=== PATIENT | male | born 1940 | race Caucasian/White ===

== ENCOUNTER 2018-10-27 15:21 | Emergency (ER) | payer MEDICARE, BC ==
--- NOTE | 2018-10-27 16:33 | RAD REPORT ---
EXAM DESCRIPTION: CT - Head Brain Wo Cont - 10/27/2018 4:20 pm CLINICAL HISTORY: Left-sided headache COMPARISON: CT head July 2015 TECHNIQUE: Axial 5 mm thick images of the head were obtained without IV contrast. All CT scans are performed using dose optimization technique as appropriate and may include automated exposure control or mA/KV adjustment according to patient size. FINDINGS: No intracranial hemorrhage, mass, edema or shift of mid-line structures. No acute infarcti on changes seen. Moderate atrophy and chronic ischemic change matches the prior study. Ventricles are in proportion to volume loss. Arterial and physiologic calcifications are present. Mastoid air cells and visualized portions of the paranasal sinuses are clear. No acute bony findings. IMPRESSION: Moderate atrophy and chronic ischemic change with no acute intracranial finding. No significant change from 2015 study.
[2018-10-27 16:39] LABS: Absolute Lymphocytes (CBC) 1.6 K/uL (0.7-4.9); Absolute Monocytes 0.5 K/uL (0.1-1.3); Absolute Neutrophil 4.7 K/uL (1.8-8.0); Basophils % 0.5 % (0-1.3); Eosinophils % 2.7 % (0-4.4); Hematocrit 44.3 % (39.6-49.0); Lymphocytes % 22.8 % (15.3-44.8); MPV 7.4 fL (7.6-11.3); Monocytes % 7.3 % (3.3-12.3); RBC Red Blood Cell Count 4.56 M/uL (4.33-5.43)
[2018-10-27 16:52] LABS: BUN Blood Urea Nitrogen 12 mg/dL (7-18); Bicarbonate 28 mmol/L (21-32); C-Reactive Protein < 2.90 mg/L (<3.00); Glucose Level 105 mg/dL (74-106); Potassium 4.1 mmol/L (3.5-5.1); Sodium Level 141 mmol/L (136-145)
--- NOTE | 2018-10-27 17:25 | ER ---
Nurse's Notes [facility] Name: Cecil Butterfield Age: 78 yrs Sex: Male : 1940 Arrival Date: 10/27/2018 Time: 15:25 Bed 20 Private MD: Catracho Aranda T Diagnosis: Headache Presentation: 10/27 15:45 Presenting complaint: Patient states: I have a throbbing thing/pain in my left mandaeism la1 area since . It hurts intermittently, is usually tender to touch. Transition of care: patient was not received from another setting of care. Onset of symptoms was October 27, 2018. Risk Assessment: Do you want to hurt yourself or someone else? Patient reports no desire to harm self or others. Initial Sepsis Screen: Does the patient meet any 2 criteria? No. Patient's initial sepsis screen is negative. Does the patient have a suspected source of infection? No. Patient's initial sepsis screen is negative. Care prior to arrival: None. 15:45 Method Of Arrival: Ambulatory la1 15:45 Acuity: JAMSHID 3 la1 Triage Assessment: 15:51 Headache History: The patient has had previous headaches and this one is similar to bp previous episodes. General: Appears in no apparent distress. uncomfortable, slender, Behavior is cooperative, appropriate for age, anxious. Pain: Complains of pain in right mandaeism Pain currently is 2 out of 10 on a pain scale. Pain began suddenly, Also complains of no other associated symptoms. EENT: No deficits noted. Neuro: Level of Consciousness is awake, alert, obeys commands, Oriented to person, place, time, situation, Appropriate for age. Cardiovascular: No deficits noted. Respiratory: Airway is patent Respiratory effort is even, unlabored, Respiratory pattern is regular, symmetrical. GI: No signs and/or symptoms were reported involving the gastrointestinal system. : No signs and/or symptoms were reported regarding the genitourinary system. Derm: No deficits noted. Musculoskeletal: Circulation, motion, and sensation intact. Range of motion: intact in all extremities. Historical: - Allergies: 15:46 No Known Allergies; la1 - PMHx: 15:46 Hypertension; Anemia; la1 - PSHx: 15:46 Hernia repair; la1 - Immunization history:: Adult Immunizations up to date. - Social history:: Smoking status: Patient/guardian denies using tobacco. - Ebola Screening: : No symptoms or risks identified at this time. Screenin:54 Abuse screen: Denies threats or abuse. Denies injuries from another. Nutritional bp screening: No deficits noted. Tuberculosis screening: No symptoms or risk factors identified. Fall Risk None identified. Assessment: 15:53 General: SEE TRIAGE NOTE. Pain: Denies pain. Pain began PT STATES PAIN INTERMITTENT. bp 17:43 Reassessment: PT D/C HOME AMBULATORY, DX WITH MIGRAINE. bp Vital Signs: 15:46 BP 130 / 81; Pulse 99; Resp 18; Temp 97.8; Pulse Ox 98% on R/A; Weight 54.43 kg; Height la1 5 ft. 6 in. (167.64 cm); 17:44 BP 135 / 79; Pulse 89; Resp 16; Pulse Ox 98% ; bp 15:46 Body Mass Index 19.37 (54.43 kg, 167.64 cm) la1 ED Course: 15:25 Patient arrived in ED. mr 15:25 Catracho Aranda MD is Private Physician. mr 15:46 Triage completed. la1 15:46 Arm band placed on right wrist. la1 15:50 Nolan Izaguirre, ELLE is Primary Nurse. bp 15:52 Vitor Iglesias PA is PHCP. jr8 15:52 Xavi Chang MD is Attending Physician. jr8 15:54 Patient has correct armband on for positive identification. Bed in low position. Call bp light in reach. Side rails up X2. 16:14 Initial lab(s) drawn, by mo, sent to lab. Inserted saline lock: 20 gauge in right ms forearm, using aseptic technique. Blood collected. 16:21 CT Head Brain wo Cont In Process Unspecified. EDMS 17:24 Catracho Arnada MD is Referral Physician. jr8 17:44 No provider procedures requiring assistance completed. IV discontinued, intact, bp bleeding controlled, No redness/swelling at site. Pressure dressing applied. Administered Medications: No medications were administered Outcome: 17:24 Discharge ordered by . jr8 17:44 Discharged to home ambulatory. bp 17:44 Condition: stable 17:44 Discharge instructions given to patient, Instructed on discharge instructions, follow up and referral plans. Demonstrated understanding of instructions, follow-up care. 17:45 Patient left the ED. bp Signatures: Dispatcher [employer] EDMS SharmaSarita santos mr Shoaib, Lia ms Vitor Iglesias PA PA jr8 Benja Rivers RN RN la1 Nolan Izaguirre RN RN bp
--- NOTE | 2018-10-27 17:25 | EDPHYS ---
Physician Documentation [facility] Name: Cecil Butterfield Age: 78 yrs Sex: Male : 1940 Arrival Date: 10/27/2018 Time: 15:25 Bed 20 Private MD: Catracho Aranda T ED Physician Xavi Chang HPI: 10/27 16:45 This 78 yrs old Male presents to ER via Ambulatory with complaints of jr8 Headache. 16:45 The patient complains of pain to the left jew. The patient describes the headache as jr8 intermittent, throbbing. Onset: The symptoms/episode began/occurred gradually, 2 day(s) ago. Associated signs and symptoms: The patient has no apparent associated signs or symptoms. Severity of symptoms: At its worst the pain was mild, in the emergency department the pain is unchanged. Headache History: Denies prior headaches. The patient has experienced a previous episode. The patient has not recently seen a physician. Stated that a few years ago had similar pain and they first diagnosed him with temporal arteritis but then came back with saying it was just a migraine. A few days ago started with similar pain that has not resolved . Historical: - Allergies: 15:46 No Known Allergies; la1 - PMHx: 15:46 Hypertension; Anemia; la1 - PSHx: 15:46 Hernia repair; la1 - Immunization history:: Adult Immunizations up to date. - Social history:: Smoking status: Patient/guardian denies using tobacco. - Ebola Screening: : No symptoms or risks identified at this time. ROS: 16:45 Eyes: Negative for injury, pain, redness, and discharge, ENT: Negative for injury, jr8 pain, and discharge, Neck: Negative for injury, pain, and swelling, Cardiovascular: Negative for chest pain, palpitations, and edema, Respiratory: Negative for shortness of breath, cough, wheezing, and pleuritic chest pain, Abdomen/GI: Negative for abdominal pain, nausea, vomiting, diarrhea, and constipation, Back: Negative for injury and pain, MS/Extremity: Negative for injury and deformity, Skin: Negative for injury, rash, and discoloration. 16:45 Neuro: Positive for headache, Negative for altered mental status, dizziness, gait disturbance, hearing loss, loss of consciousness, numbness, seizure activity, speech changes, syncope, near syncope, tingling, tinnitus, tremor, visual changes, weakness. Exam: 16:45 Head/Face: Normocephalic, atraumatic. Temporal pulses 2+ with no thrill or bruit jr8 Eyes: Pupils equal round and reactive to light, extra-ocular motions intact. Lids and lashes normal. Conjunctiva and sclera are non-icteric and not injected. Cornea within normal limits. Periorbital areas with no swelling, redness, or edema. ENT: Nares patent. No nasal discharge, no septal abnormalities noted. Tympanic membranes are normal and external auditory canals are clear. Oropharynx with no redness, swelling, or masses, exudates, or evidence of obstruction, uvula midline. Mucous membranes moist. Neck: Trachea midline, no thyromegaly or masses palpated, and no cervical lymphadenopathy. Supple, full range of motion without nuchal rigidity, or vertebral point tenderness. No Meningismus. Chest/axilla: Normal chest wall appearance and motion. Nontender with no deformity. No lesions are appreciated. Cardiovascular: Regular rate and rhythm with a normal S1 and S2. No gallops, murmurs, or rubs. Normal PMI, no JVD. No pulse deficits. Respiratory: Lungs have equal breath sounds bilaterally, clear to auscultation and percussion. No rales, rhonchi or wheezes noted. No increased work of breathing, no retractions or nasal flaring. Abdomen/GI: Soft, non-tender, with normal bowel sounds. No distension or tympany. No guarding or rebound. No evidence of tenderness throughout. Back: No spinal tenderness. No costovertebral tenderness. Full range of motion. Skin: Warm, dry with normal turgor. Normal color with no rashes, no lesions, and no evidence of cellulitis. MS/ Extremity: Pulses equal, no cyanosis. Neurovascular intact. Full, normal range of motion. Neuro: Awake and alert, GCS 15, oriented to person, place, time, and situation. Cranial nerves II-XII grossly intact. Motor strength 5/5 in all extremities. Sensory grossly intact. Cerebellar exam normal. Normal gait. Vital Signs: 15:46 BP 130 / 81; Pulse 99; Resp 18; Temp 97.8; Pulse Ox 98% on R/A; Weight 54.43 kg; Height la1 5 ft. 6 in. (167.64 cm); 17:44 BP 135 / 79; Pulse 89; Resp 16; Pulse Ox 98% ; bp 15:46 Body Mass Index 19.37 (54.43 kg, 167.64 cm) la1 MDM: 16:00 Patient medically screened. jr8 17:23 Differential diagnosis: cerebral vascular accident, hypoglycemia, intracerebral jr8 hemorrhage, meningitis, migraine, neoplasm, temporal arteritis, tension headache, trigeminal neuralgia. Data reviewed: vital signs, nurses notes, lab test result(s), radiologic studies, CT scan, and as a result, I will discharge patient. Data interpreted: Pulse oximetry: on room air is 98 %. Interpretation: normal. Counseling: I had a detailed discussion with the patient and/or guardian regarding: the historical points, exam findings, and any diagnostic results supporting the discharge/admit diagnosis, lab results, radiology results, the need for outpatient follow up, a family practitioner, to return to the emergency department if symptoms worsen or persist or if there are any questions or concerns that arise at home. 10/27 16:00 Order name: CBC with Diff; Complete Time: 16:56 8 10/27 16:00 Order name: Basic Metabolic Panel; Complete Time: 16:56 jr8 10/27 16:00 Order name: C-Reactive Protein; Complete Time: 16:56 jr8 10/27 16:00 Order name: Westergren Sedrate; Complete Time: 16:56 jr8 10/27 16:00 Order name: IV; Complete Time: 16:14 8 10/27 16:00 Order name: CT Head Brain wo Cont; Complete Time: 16:40 jr8 Administered Medications: No medications were administered Disposition: 18:56 Co-signature as Attending Physician, Xavi Chang MD Available for consultation at ps1 all times . Disposition: 10/27/18 17:24 Discharged to Home. Impression: Headache. - Condition is Stable. - Discharge Instructions: Migraine Headache. - Medication Reconciliation Form, Thank You Letter, Antibiotic Education, Prescription Opioid Use form. - Follow up: Catracho Aranda MD; When: 2 - 3 days; Reason: Recheck today's complaints, Continuance of care, Re-evaluation by your physician. - Problem is new. - Symptoms have improved. Signatures: Dispatcher [employer] EDMS Vitor Iglesias PA PA jr8 Benja Rivers RN RN la1 Nolan Izaguirre, RN RN bp Xavi Chang MD MD ps1 Corrections: (The following items were deleted from the chart) 17:45 17:24 10/27/2018 17:24 Discharged to Home. Impression: Headache. Condition is Stable. bp Forms are Medication Reconciliation Form, Thank You Letter, Antibiotic Education, Prescription Opioid Use. Follow up: Catracho Aranda; When: 2 - 3 days; Reason: Recheck today's complaints, Continuance of care, Re-evaluation by your physician. Problem is new. Symptoms have improved. jr8
[2018-10-27 18:05] VITALS: TEMP 97.8; O2SAT 98
[2018-10-27 18:07] VITALS: BP 135/79
== END 2018-10-27 17:45 | disposition home or self-care (01) ==
LOC: ER 15:21
DX: R51 Headache (principal)
CPT/HCPCS: 36415; 70450; 80048; 85025; 85652; 86140; 99283

== ENCOUNTER 2018-11-07 23:46 | Emergency (ER) | payer MEDICARE, BC ==
[2018-11-08 03:05] LABS: Protime INR 0.9
[2018-11-08 03:08] LABS: Absolute Lymphocytes (CBC) 2.3 K/uL (0.7-4.9); Absolute Monocytes 0.6 K/uL (0.1-1.3); Absolute Neutrophil 3.3 K/uL (1.8-8.0); Basophils % 1.1 % (0-1.3); Eosinophils % 6.4 % (0-4.4); Hematocrit 43.7 % (39.6-49.0); MPV 7.5 fL (7.6-11.3); Monocytes % 8.7 % (3.3-12.3); RBC Red Blood Cell Count 4.59 M/uL (4.33-5.43)
[2018-11-08 03:19] LABS: ALT/SGPT 18 U/L (12-78); AST/SGOT 15 U/L (15-37); Albumin 3.8 g/dL (3.4-5.0); Alkaline Phosphatase 43 U/L (45-117); BUN Blood Urea Nitrogen 13 mg/dL (7-18); Bicarbonate 28 mmol/L (21-32); Bilirubin Direct 0.1 mg/dL (0-0.2); Bilirubin Total 0.5 mg/dL (0.2-1.0); Glucose Level 94 mg/dL (74-106); Magnesium 2.2 mg/dL (1.8-2.4); NT PRO-BNP 396 pg/mL (<450); Potassium 4.4 mmol/L (3.5-5.1); Protein, Total 7.2 g/dL (6.4-8.2); Sodium Level 141 mmol/L (136-145); Troponin (Emerg Dept Use Only) < 0.02 ng/mL (0.0-0.045)
--- NOTE | 2018-11-08 03:40 | EDPHYS ---
Physician Documentation [facility] Name: Cecil Butterfield Age: 78 yrs Sex: Male : 1940 Arrival Date: 11/07/2018 Time: 23:59 Bed 15 Private MD: ED Physician Kd Castillo HPI: 11/08 02:00 This 78 yrs old Male presents to ER via Ambulatory with complaints of High pm1 Blood Pressure. 02:00 The patient has elevated blood pressure and discovered this at home, with a home pm1 device. Onset: The symptoms/episode began/occurred today, at 13:30. Modifying factors: The symptoms are aggravated by nothing, The symptoms are alleviated by nothing. Associated signs and symptoms: Pertinent positives: Left arm pain, left neck pain, and left shoulder pain, Pertinent negatives: dizziness, dyspnea, headache, lightheadedness, nausea, vomiting, SOB. Severity of symptoms: in the emergency department the blood pressure is improved. The patient has not recently seen a physician, the patient's primary care provider is Dr. Aranda. Historical: - Allergies: 00:23 No Known Allergies; mg2 - Home Meds: 00:23 aspirin 81 mg Oral TbEC 1 tab once daily [Active]; atenolol 25 mg Oral tab 1 tab once mg2 daily [Active]; - PMHx: 00:23 Anemia; Hypertension; mg2 - PSHx: 00:23 Hernia repair; mg2 - Immunization history:: Flu vaccine is up to date. - Social history:: Smoking status: Patient/guardian denies using tobacco, Patient/guardian denies using alcohol, street drugs, IV drugs. - Ebola Screening: : No symptoms or risks identified at this time. ROS: 02:00 Constitutional: Negative for fever, chills, and weight loss, Eyes: Negative for injury, pm1 pain, redness, and discharge, ENT: Negative for injury, pain, and discharge. 02:00 Respiratory: Negative for shortness of breath, cough, wheezing, and pleuritic chest pain, Abdomen/GI: Negative for abdominal pain, nausea, vomiting, diarrhea, and constipation. 02:00 : Negative for injury, bleeding, discharge, and swelling, Skin: Negative for injury, rash, and discoloration, Neuro: Negative for headache, weakness, numbness, tingling, and seizure. 02:00 Neck: Positive for Left sided neck pain. 02:00 Cardiovascular: Negative for chest pain, edema, orthopnea, palpitations. 02:00 Back: Positive for of the left trapezius and left scapular area, pain. 02:00 MS/extremity: Positive for pain, of the left arm. Exam: 02:00 Constitutional: This is a well developed, well nourished patient who is awake, alert, pm1 and in no acute distress. Head/Face: Normocephalic, atraumatic. Eyes: Pupils equal round and reactive to light, extra-ocular motions intact. Lids and lashes normal. Conjunctiva and sclera are non-icteric and not injected. Cornea within normal limits. Periorbital areas with no swelling, redness, or edema. ENT: Nares patent. No nasal discharge, no septal abnormalities noted. Tympanic membranes are normal and external auditory canals are clear. Oropharynx with no redness, swelling, or masses, exudates, or evidence of obstruction, uvula midline. Mucous membranes moist. 02:00 Chest/axilla: Normal chest wall appearance and motion. Nontender with no deformity. No lesions are appreciated. Cardiovascular: Regular rate and rhythm with a normal S1 and S2. No gallops, murmurs, or rubs. Normal PMI, no JVD. No pulse deficits. Respiratory: Lungs have equal breath sounds bilaterally, clear to auscultation and percussion. No rales, rhonchi or wheezes noted. No increased work of breathing, no retractions or nasal flaring. Abdomen/GI: Soft, non-tender, with normal bowel sounds. No distension or tympany. No guarding or rebound. No evidence of tenderness throughout. Back: No spinal tenderness. No costovertebral tenderness. Full range of motion. Skin: Warm, dry with normal turgor. Normal color with no rashes, no lesions, and no evidence of cellulitis. MS/ Extremity: Pulses equal, no cyanosis. Neurovascular intact. Full, normal range of motion. 02:00 Neck: External neck: is normal, no tenderness. 02:00 Neuro: Orientation: is normal, Motor: is normal, moves all fours. Vital Signs: 00:24 BP 123 / 81; Pulse 71; Resp 18; Temp 98.2; Pulse Ox 98% on R/A; Weight 57.61 kg; Height mg2 5 ft. 6 in. (167.64 cm); Pain 4/10; 01:15 BP 115 / 75; Pulse 66; Resp 19 S; Pulse Ox 96% on R/A; cc3 02:46 BP 121 / 76; Pulse 66; Resp 20 S; Pulse Ox 96% on R/A; cc3 03:30 BP 142 / 89; Pulse 66; Resp 18 S; Pulse Ox 98% on R/A; cc3 00:24 Body Mass Index 20.50 (57.61 kg, 167.64 cm) mg2 MDM: 01:27 Patient medically screened. pm1 03:30 Counseling: I had a detailed discussion with the patient and/or guardian regarding: the pm1 historical points, exam findings, and any diagnostic results supporting the discharge/admit diagnosis, lab results, radiology results, the need for further work-up and treatment in the hospital. 03:30 Refusal of service: The patient/guardian displays adequate decision making capability pm1 and despite a detailed discussion of alternatives, benefits, risks, and consequences refuses: Admission to the hospital for further work-up and treatment, cardiac evaluation. 03:36 Data reviewed: vital signs. Data interpreted: Pulse oximetry: on room air is 96 %. pm1 Interpretation: normal. 11/08 01:27 Order name: Basic Metabolic Panel pm11/08 01:27 Order name: CBC with Diff pm1 11/08 01:27 Order name: LFT's; Complete Time: 03:22 pm11/08 01:27 Order name: Magnesium; Complete Time: 03:22 pm11/08 01:27 Order name: NT PRO-BNP; Complete Time: 03:22 pm11/08 01:27 Order name: PT-INR; Complete Time: 03:13 pm11/08 01:27 Order name: Troponin (emerg Dept Use Only); Complete Time: 03:22 pm11/08 01:27 Order name: XRAY Chest (1 view) pm11/08 01:27 Order name: EKG; Complete Time: 01:28 pm11/08 01:27 Order name: Cardiac monitoring; Complete Time: 01:34 pm11/08 01:27 Order name: EKG - Nurse/Tech; Complete Time: 02:31 pm11/08 01:28 Order name: Basic Metabolic Panel; Complete Time: 03:22 EDMS 11/08 01:28 Order name: CBC with Automated Diff; Complete Time: 03:13 EDMS 11/08 01:27 Order name: IV Saline Lock; Complete Time: 02:32 pm1 11/08 01:27 Order name: Labs collected and sent; Complete Time: 02:32 pm1 11/08 01:27 Order name: O2 Per Protocol; Complete Time: 01:33 pm1 11/08 01:27 Order name: O2 Sat Monitoring; Complete Time: 01:34 pm1 Administered Medications: 03:45 Drug: TORadol 15 mg Route: IVP; Site: right antecubital; cc3 03:50 Follow up: Response: No adverse reaction cc3 Disposition: 07:27 Co-signature as Attending Physician, Kd Castillo MD I agree with the assessment and clint plan of care. Disposition: 11/08/18 03:38 Patient has left against medical advice. Impression: Pain in left shoulder, Essential (primary) hypertension. - Patients states they are going to Home. - Condition is Stable. - Discharge Instructions: Nonspecific Chest Pain, Hypertension, How to Take Your Blood Pressure, [id number], DASH Eating Plan, Managing Your Hypertension. Follow up: Private Physician; When: Upon discharge from the Emergency Department; Reason: Recheck today's complaints, Continuance of care, Re-evaluation by your physician. Follow up: Emergency Department; When: As needed; Reason: Worsening of condition, admission. - Problem is new. - Symptoms are unchanged. Signatures: Dispatcher [employer] [facility] Kd Castillo MD MD cha Marinas, Patrick, RESEARCH GEOLOGIST RESEARCH GEOLOGIST pm1 Kade Ward RN RN mg2 Cordel, Charlene cc3 Corrections: (The following items were deleted from the chart) 03:53 03:38 11/08/2018 03:38 Patients has left against medical advice. Impression: Pain in cc3 left shoulderEssential (primary) hypertension. Patient states they are going to Home. Condition is Stable. Follow up: Private Physician; When: Upon discharge from the Emergency Department; Reason: Recheck today's complaints, Continuance of care, Re-evaluation by your physician. Follow up: Emergency Department; When: As needed; Reason: Worsening of condition, admission. Problem is new. Symptoms are unchanged. pm1
--- NOTE | 2018-11-08 03:40 | ER ---
Nurse's Notes [facility] Name: Cecil Butterfield Age: 78 yrs Sex: Male : 1940 Arrival Date: 11/07/2018 Time: 23:59 Bed 15 Private MD: Diagnosis: Essential (primary) hypertension;Pain in left shoulder Presentation: 11/08 00:19 Presenting complaint: Patient states: i have high blood pressure since lunch time mg2 150/102, neck, upper back and left arm pain and nausea after dinner. Transition of care: patient was not received from another setting of care. Onset of symptoms was November 07, 2018. Risk Assessment: Do you want to hurt yourself or someone else? Patient reports no desire to harm self or others. Initial Sepsis Screen: Does the patient meet any 2 criteria? No. Patient's initial sepsis screen is negative. Does the patient have a suspected source of infection? No. Patient's initial sepsis screen is negative. Care prior to arrival: None. 00:19 Method Of Arrival: Ambulatory mg2 00:19 Acuity: JAMSHID 3 mg2 Triage Assessment: 00:48 General: Appears in no apparent distress. comfortable, Behavior is calm, cooperative, cc3 appropriate for age. Pain: Complains of pain in left arm and left scapular area and left trapezius. EENT: No signs and/or symptoms were reported regarding the EENT system. Neuro: Level of Consciousness is awake, alert, obeys commands, Oriented to person, place, time, situation, Appropriate for age. Cardiovascular: Patient's skin is warm and dry. Respiratory: Airway is patent Respiratory effort is even, unlabored, Respiratory pattern is regular, symmetrical. GI: Abdomen is round non-distended. : No signs and/or symptoms were reported regarding the genitourinary system. Derm: No signs and/or symptoms reported regarding the dermatologic system. Musculoskeletal: Circulation, motion, and sensation intact. Range of motion: intact in all extremities. Historical: - Allergies: 00:23 No Known Allergies; mg2 - Home Meds: 00:23 aspirin 81 mg Oral TbEC 1 tab once daily [Active]; atenolol 25 mg Oral tab 1 tab once mg2 daily [Active]; - PMHx: 00:23 Anemia; Hypertension; mg2 - PSHx: 00:23 Hernia repair; mg2 - Immunization history:: Flu vaccine is up to date. - Social history:: Smoking status: Patient/guardian denies using tobacco, Patient/guardian denies using alcohol, street drugs, IV drugs. - Ebola Screening: : No symptoms or risks identified at this time. Screenin:50 Abuse screen: Denies threats or abuse. Denies injuries from another. Nutritional mg2 screening: No deficits noted. Tuberculosis screening: No symptoms or risk factors identified. Fall Risk None identified. Assessment: 00:48 General: see triage assessment. cc3 01:13 Reassessment: Patient appears in no apparent distress at this time. Patient and/or cc3 family updated on plan of care and expected duration. Pain level reassessed. Patient is alert, oriented x 3, equal unlabored respirations, skin warm/dry/pink. 02:25 Reassessment: Patient appears in no apparent distress at this time. Patient and/or cc3 family updated on plan of care and expected duration. Pain level reassessed. Patient is alert, oriented x 3, equal unlabored respirations, skin warm/dry/pink. 03:45 Reassessment: Patient appears in no apparent distress at this time. Patient and/or cc3 family updated on plan of care and expected duration. Pain level reassessed. Patient is alert, oriented x 3, equal unlabored respirations, skin warm/dry/pink. SALON SALES CONSULTANT Escobar plans to admit the patient but patient refused and wanting to go against medical advice though risks and consequences explained. Patient signed AMA form, charge nurse Ingris informed. 03:50 Reassessment: IV cannula removed, patient left ER vitally stable against medical advice.cc3 Vital Signs: 00:24 BP 123 / 81; Pulse 71; Resp 18; Temp 98.2; Pulse Ox 98% on R/A; Weight 57.61 kg; Height mg2 5 ft. 6 in. (167.64 cm); Pain 4/10; 01:15 BP 115 / 75; Pulse 66; Resp 19 S; Pulse Ox 96% on R/A; cc3 02:46 BP 121 / 76; Pulse 66; Resp 20 S; Pulse Ox 96% on R/A; cc3 03:30 BP 142 / 89; Pulse 66; Resp 18 S; Pulse Ox 98% on R/A; cc3 00:24 Body Mass Index 20.50 (57.61 kg, 167.64 cm) mg2 ED Course: 11/07 23:59 Patient arrived in ED. ag3 02 00:22 Triage completed. mg2 00:25 Arm band placed on. mg2 00:48 Nisha Laughlin is Primary Nurse. cc3 00:51 Patient has correct armband on for positive identification. mg2 01:26 Escobar Watkins NP is PHCP. pm1 01:26 Kd Castillo MD is Attending Physician. pm1 01:44 X-ray completed. Portable x-ray completed in exam room. Patient tolerated procedure kw well. 01:45 XRAY Chest (1 view) In Process Unspecified. EDMS 02:08 EKG done, by ED staff, reviewed by Escobar Watkins NP. ag4 02:25 Inserted saline lock: 20 gauge in right antecubital area, using aseptic technique. cc3 Blood collected. 03:45 No provider procedures requiring assistance completed. IV discontinued, intact, cc3 bleeding controlled, No redness/swelling at site. Pressure dressing applied. Administered Medications: 03:45 Drug: TORadol 15 mg Route: IVP; Site: right antecubital; cc3 03:50 Follow up: Response: No adverse reaction cc3 Outcome: 03:45 AMA AMA form signed cc3 03:45 Condition: stable 03:45 Instructed on follow up and referral plans. the need for admit, Demonstrated understanding of instructions. 03:53 Patient left the ED. cc3 Signatures: Dispatcher [employer] EDMS Melyssa Winters Escobar Watkins NP SALON SALES CONSULTANT pm1 Kade Ward, RN RN mg2 Nisha Laughlin cc3 Nicci Beltran ag3 Clyde Tillman ag4
[2018-11-08] MEDS ORDERED: KETOROLAC 30 MG/ML INJ ONE (03:56)
[2018-11-08 07:37] VITALS: TEMP 98.2
[2018-11-08 07:38] VITALS: O2SAT 96
[2018-11-08 07:39] VITALS: BP 121/76
--- NOTE | 2018-11-08 09:49 | EKG ---
Test Date: 2018-11-08 Test Time: 01:55:05 Picture Framer: AG3 MEASUREMENT RESULTS: Intervals: Rate: 65 ME: 162 QRSD: 84 QT: 410 QTc: 426 [place]: P: 58 ME: 162 QRS: 54 T: 44 INTERPRETIVE STATEMENTS: Normal sinus rhythm Normal ECG Compared to ECG 09/04/2016 20:07:16 No significant changes Electronically Signed On 11-08-18 08:31:49 AUTOCAD OPERATOR by Quentin Cortez
--- NOTE | 2018-11-08 09:50 | RAD REPORT ---
EXAM DESCRIPTION: RAD - Chest Single View - 11/08/2018 1:46 am CLINICAL HISTORY: Chest pain, hypertension COMPARISON: September 2017 TECHNIQUE: AP portable chest image was obtained 0144 hours . FINDINGS: Lungs are fibrotic similar to comparison. No focal mass, infiltrate, failure or volume ove rload. Costochondral calcifications are present creating nodular appearance to the lower right lung f ield. Heart and vasculature are normal. No measurable pleural effusion and no pneumothorax. No acute bony abnormality seen. No acute aortic findings suspected. IMPRESSION: Stable fibrotic lung pattern from 1 year earlier. No acute finding.
== END 2018-11-08 03:53 | disposition left against medical advice (07) ==
LOC: ER 23:46
DX: I10 Essential (primary) hypertension (principal); M79.602 Pain in left arm; Z79.82 Long term (current) use of aspirin
CPT/HCPCS: 36415; 71045; 80048; 80076; 83735; 83880; 84484; 85025; 85610; 93005; 96374; 99284

== ENCOUNTER 2019-04-13 21:41 | Emergency (ER) | payer MEDICARE, BC ==
--- NOTE | 2019-04-13 22:45 | ER ---
Nurse's Notes [facility] Name: Cecil Butterfield Age: 79 yrs Sex: Male : 1940 Arrival Date: 04/13/2019 Time: 21:43 Bed 18 Private MD: Catracho Aranda T Diagnosis: hypertensive crisis resolved Presentation: 04/13 21:57 Presenting complaint: Patient states: my blood pressure has been high all day and I ch think I need a blood pressure medication. I have check it at least 5 times today and it has been 150/100's. I check it every day. Denies feeling unwell. denies FERRARI, Visual disturbances, dizziness, cp, sob, swelling, LOC, trauma, or any changes from baseline. Transition of care: patient was not received from another setting of care. Onset of symptoms was April 13, 2019 at 06:00. Risk Assessment: Do you want to hurt yourself or someone else? Patient reports no desire to harm self or others. Initial Sepsis Screen: Does the patient meet any 2 criteria? No. Patient's initial sepsis screen is negative. Does the patient have a suspected source of infection? No. Patient's initial sepsis screen is negative. Care prior to arrival: None. 21:57 Method Of Arrival: Ambulatory 21:57 Acuity: JAMSHID 5 ch Triage Assessment: 22:00 General: Appears in no apparent distress. comfortable, Behavior is calm, cooperative, ch appropriate for age. Pain: Denies pain. Neuro: No deficits noted. Neuro: Denies weakness blurred vision dizziness, difficulty swallowing, paresthesias numbness headache photophobia diplopia. Cardiovascular: Denies chest pain, diaphoresis, fatigue, lightheadedness, nausea, palpitations, shortness of breath, syncope, vomiting. Respiratory: Airway is patent Respiratory effort is even, unlabored. GI: No signs and/or symptoms were reported involving the gastrointestinal system. : No signs and/or symptoms were reported regarding the genitourinary system. Derm: Skin is pink, warm \T\ dry. Historical: - Allergies: 22:00 No Known Allergies; ch - Home Meds: 22:00 aspirin 81 mg Oral TbEC 1 tab once daily [Active]; atenolol 25 mg Oral tab 1 tab once ch daily [Active]; Nexium 40 mg Oral cpDR 1 cap once daily [Active]; - PMHx: 22:00 Anemia; Hypertension; blood transfusion from bleeding ucler; Ulcers; ch - PSHx: 22:00 Hernia repair; upper and lower GI scope; ch - Immunization history:: Adult Immunizations up to date. - Social history:: Smoking status: Patient/guardian denies using tobacco, Patient/guardian denies using alcohol, street drugs. - Ebola Screening: : Patient negative for fever greater than or equal to 101.5 degrees Fahrenheit, and additional compatible Ebola Virus Disease symptoms Patient denies exposure to infectious person Patient denies travel to an Ebola-affected area in the 21 days before illness onset No symptoms or risks identified at this time. Screenin:10 Abuse screen: Denies threats or abuse. Denies injuries from another. Nutritional ch screening: No deficits noted. Tuberculosis screening: No symptoms or risk factors identified. Fall Risk None identified. Assessment: 22:24 Reassessment: Patient appears in no apparent distress at this time. Patient and/or ch family updated on plan of care and expected duration. Pain level reassessed. Patient is alert, oriented x 3, equal unlabored respirations, skin warm/dry/pink. General: Appears in no apparent distress. comfortable, Behavior is calm, cooperative, appropriate for age. Pain: Denies pain. 23:00 Reassessment: Patient appears in no apparent distress at this time. Patient and/or ch family updated on plan of care and expected duration. Pain level reassessed. Patient is alert, oriented x 3, equal unlabored respirations, skin warm/dry/pink. Patient denies pain at this time. Vital Signs: 21:56 BP 126 / 87 LA Sitting (auto/); Pulse 77; Resp 16; Temp 98; Pulse Ox 99.2% ; Weight 53.52 kg; Height 5 ft. 5 in. (165.10 cm); Pain 0/10; 21:56 BP 125 / 81 RA Sitting (auto/reg); Pulse 76; ch 22:32 BP 126 / 83 RA Sitting (auto/reg); Pulse 71; ch 22:32 BP 127 / 82 LA Sitting (auto/reg); Pulse 71; ch 21:56 Body Mass Index 19.64 (53.52 kg, 165.10 cm) ED Course: 21:43 Patient arrived in ED. am2 21:43 Catracho Aranda MD is Private Physician. am2 21:48 Alex Hyde MD is Attending Physician. tw4 21:56 Julieta Devine, RN is Primary Nurse. 21:58 Triage completed. 22:00 Arm band placed on left wrist. Patient placed in an exam room, on a stretcher, on pulse oximetry. 22:10 No apparent distress. Resting quietly. 22:10 Patient has correct armband on for positive identification. Bed in low position. Call light in reach. Side rails up X 1. Pulse ox on. NIBP on. 22:10 No provider procedures requiring assistance completed. Patient did not have IV access ch during this emergency room visit. 22:42 Catracho Aranda MD is Referral Physician. tw4 Administered Medications: No medications were administered Outcome: 22:43 Discharge ordered by . tw4 23:00 Discharged to home ambulatory. 23:00 Condition: stable 23:00 Discharge instructions given to patient, Instructed on discharge instructions, follow up and referral plans. Demonstrated understanding of instructions, follow-up care. 23:03 Patient left the ED. Signatures: Julieta Devine, RN RN Katelyn Grace am2 Alex Hyde MD MD tw4
[2019-04-13 23:34] VITALS: BP 127/82
[2019-04-13 23:36] VITALS: TEMP 98
--- NOTE | 2019-04-14 23:03 | EDPHYS ---
Physician Documentation [facility] Name: Cecil Butterfield Age: 79 yrs Sex: Male : 1940 Arrival Date: 04/13/2019 Time: 21:43 Bed 18 Private MD: Catracho Aranda T ED Physician Alex Hyde HPI: 04/14 05:02 This 79 yrs old Male presents to ER via Ambulatory with complaints of High tw4 Blood Pressure. 05:02 The patient has elevated blood pressure and discovered this at home, with a home tw4 device. Onset: The symptoms/episode began/occurred this morning. Modifying factors: The symptoms are aggravated by The symptoms are alleviated by. Severity of symptoms: At its worst the blood pressure was moderate. The patient has not experienced similar symptoms in the past. Historical: - Allergies: 04/13 22:00 No Known Allergies; ch - Home Meds: 22:00 aspirin 81 mg Oral TbEC 1 tab once daily [Active]; atenolol 25 mg Oral tab 1 tab once ch daily [Active]; Nexium 40 mg Oral cpDR 1 cap once daily [Active]; - PMHx: 22:00 Anemia; Hypertension; blood transfusion from bleeding ucler; Ulcers; ch - PSHx: 22:00 Hernia repair; upper and lower GI scope; ch - Immunization history:: Adult Immunizations up to date. - Social history:: Smoking status: Patient/guardian denies using tobacco, Patient/guardian denies using alcohol, street drugs. - Ebola Screening: : Patient negative for fever greater than or equal to 101.5 degrees Fahrenheit, and additional compatible Ebola Virus Disease symptoms Patient denies exposure to infectious person Patient denies travel to an Ebola-affected area in the 21 days before illness onset No symptoms or risks identified at this time. ROS: 04/14 05:02 Constitutional: Negative for fever, chills, and weight loss, Eyes: Negative for injury, tw4 pain, redness, and discharge, Cardiovascular: Negative for chest pain, palpitations, and edema, Respiratory: Negative for shortness of breath, cough, wheezing, and pleuritic chest pain, Abdomen/GI: Negative for abdominal pain, nausea, vomiting, diarrhea, and constipation, Back: Negative for injury and pain, Skin: Negative for injury, rash, and discoloration, Neuro: Negative for headache, weakness, numbness, tingling, and seizure. Exam: 05:55 Constitutional: This is a well developed, well nourished patient who is awake, alert, tw4 and in no acute distress. Head/Face: Normocephalic, atraumatic. Cardiovascular: Regular rate and rhythm with a normal S1 and S2. No gallops, murmurs, or rubs. Normal PMI, no JVD. No pulse deficits. Respiratory: Lungs have equal breath sounds bilaterally, clear to auscultation and percussion. No rales, rhonchi or wheezes noted. No increased work of breathing, no retractions or nasal flaring. Abdomen/GI: Soft, non-tender, with normal bowel sounds. No distension or tympany. No guarding or rebound. No evidence of tenderness throughout. Back: No spinal tenderness. No costovertebral tenderness. Full range of motion. MS/ Extremity: Pulses equal, no cyanosis. Neurovascular intact. Full, normal range of motion. Neuro: Awake and alert, GCS 15, oriented to person, place, time, and situation. Cranial nerves II-XII grossly intact. Motor strength 5/5 in all extremities. Sensory grossly intact. Cerebellar exam normal. Normal gait. Vital Signs: 04/13 21:56 BP 126 / 87 LA Sitting (auto/); Pulse 77; Resp 16; Temp 98; Pulse Ox 99.2% ; Weight ch 53.52 kg; Height 5 ft. 5 in. (165.10 cm); Pain 0/10; 21:56 BP 125 / 81 RA Sitting (auto/reg); Pulse 76; ch 22:32 BP 126 / 83 RA Sitting (auto/reg); Pulse 71; ch 22:32 BP 127 / 82 LA Sitting (auto/reg); Pulse 71; ch 21:56 Body Mass Index 19.64 (53.52 kg, 165.10 cm) ch MDM: 21:48 Patient medically screened. tw4 Administered Medications: No medications were administered Disposition: 04/13/19 22:43 Discharged to Home. Impression: hypertensive crisis resolved. - Condition is Stable. - Discharge Instructions: Hypertension, Managing Your Hypertension. - Medication Reconciliation Form, Thank You Letter, Antibiotic Education, Prescription Opioid Use form. - Follow up: Catracho Aranda MD; When: Upon discharge from the Emergency Department; Reason: If symptoms return, Recheck today's complaints, Continuance of care. - Problem is new. - Symptoms have improved. Signatures: Julieta Devine RN RN Alex Hyde MD MD tw4 Corrections: (The following items were deleted from the chart) 23:03 22:43 04/13/2019 22:43 Discharged to Home. Impression: hypertensive crisis resolved. ch Condition is Stable. Forms are Medication Reconciliation Form, Thank You Letter, Antibiotic Education, Prescription Opioid Use. Follow up: Catracho Aranda; When: Upon discharge from the Emergency Department; Reason: If symptoms return, Recheck today's complaints, Continuance of care. Problem is new. Symptoms have improved. tw4
== END 2019-04-13 23:03 | disposition home or self-care (01) ==
LOC: ER 21:41
DX: I16.9 Hypertensive crisis, unspecified (principal); I10 Essential (primary) hypertension; D64.9 Anemia, unspecified; Z79.82 Long term (current) use of aspirin
CPT/HCPCS: 99283

== ENCOUNTER 2019-06-03 18:30 | Emergency (ER) | payer MEDICARE, BC ==
--- NOTE | 2019-06-03 19:29 | ER ---
Nurse's Notes [facility] Name: Cecil Butterfield Age: 79 yrs Sex: Male : 1940 Arrival Date: 06/03/2019 Time: 18:33 Bed 5 Private MD: Catracho Aranda T Diagnosis: Essential (primary) hypertension Presentation: 06/03 18:40 Presenting complaint: Patient states: "my blood pressure has been running high, at aa5 136/103 at home and I came here and they wouldn't prescribe me any blood pressure medicine because my primary doctor would not allow it so when I followed up with my primary doctor he told me to stop taking nasal decongestants but it's still running high". Pt denies any symptoms. Pt states "my blood pressure goes up but then I check it again and it goes back to normal". 18:40 Transition of care: patient was not received from another setting of care. Onset of aa5 symptoms was June 03, 2019. Risk Assessment: Do you want to hurt yourself or someone else? Patient reports no desire to harm self or others. Initial Sepsis Screen: Does the patient meet any 2 criteria? No. Patient's initial sepsis screen is negative. Does the patient have a suspected source of infection? No. Patient's initial sepsis screen is negative. Care prior to arrival: None. 18:40 Acuity: JAMSHID 5 aa5 18:40 Method Of Arrival: Ambulatory aa5 Historical: - Allergies: 18:40 No Known Allergies; aa5 - PMHx: 18:40 Anemia; Hypertension; Ulcers; GI Bleed; aa5 - PSHx: 18:40 Hernia repair; aa5 - Immunization history:: Adult Immunizations unknown. - Social history:: Smoking status: Patient/guardian denies using tobacco. - Ebola Screening: : No symptoms or risks identified at this time. Screenin:46 Abuse screen: Denies threats or abuse. Nutritional screening: No deficits noted. jd3 Tuberculosis screening: No symptoms or risk factors identified. Fall Risk Ambulatory Aid- None/Bed Rest/Nurse Assist (0 pts). Gait- Normal/Bed Rest/Wheelchair (0 pts) Mental Status- Oriented to own ability (0 pts). Total Bonner Fall Scale indicates No Risk (0-24 pts). Assessment: 19:32 General: Appears in no apparent distress. comfortable, Behavior is calm, cooperative, jd3 appropriate for age. Pain: Denies pain. Neuro: Level of Consciousness is awake, alert, obeys commands, Oriented to person, place, time, situation. Cardiovascular: Denies chest pain, diaphoresis, lightheadedness, Capillary refill < 3 seconds Patient's skin is warm and dry. Respiratory: Airway is patent Respiratory effort is even, unlabored, Respiratory pattern is regular, symmetrical, Denies cough, shortness of breath at rest. GI: No signs and/or symptoms were reported involving the gastrointestinal system. : No signs and/or symptoms were reported regarding the genitourinary system. EENT: No signs and/or symptoms were reported regarding the EENT system. Derm: Skin is intact, Skin is dry, Skin is normal, Skin temperature is warm. Musculoskeletal: Circulation, motion, and sensation intact. Range of motion: intact in all extremities. 19:48 Reassessment: Patient appears in no apparent distress at this time. Patient and/or jd3 family updated on plan of care and expected duration. Pain level reassessed. Patient is alert, oriented x 3, equal unlabored respirations, skin warm/dry/pink. reported understanding of discharge instructions. Patient denies pain at this time. Vital Signs: 18:40 BP 123 / 83; Pulse 88; Resp 16 S; Temp 98.0(O); Pulse Ox 100% on R/A; Pain 0/10; aa5 19:47 BP 122 / 87; Pulse 78; Resp 17 S; Pulse Ox 100% on R/A; Pain 0/10; jd3 ED Course: 18:33 Patient arrived in ED. mr 18:33 Catracho Aranda MD is Private Physician. mr 18:40 Arm band placed on. aa5 18:54 Triage completed. aa5 19:14 Escobar Watkins NP is PHCP. pm1 19:14 Johann Townsend MD is Attending Physician. pm1 19:15 Amadeo Sin, ELLE is Primary Nurse. jd3 19:27 Catracho Aranda MD is Referral Physician. pm1 19:46 Patient has correct armband on for positive identification. Bed in low position. Call jd3 light in reach. Side rails up X 1. Adult w/ patient. Pulse ox on. NIBP on. 19:47 No provider procedures requiring assistance completed. Patient did not have IV access jd3 during this emergency room visit. Administered Medications: No medications were administered Outcome: 19:28 Discharge ordered by . pm1 19:48 Discharged to home ambulatory. jd3 19:48 Condition: good 19:48 Discharge instructions given to patient, Instructed on discharge instructions, follow up and referral plans. Demonstrated understanding of instructions, follow-up care. 19:49 Patient left the ED. jd3 Signatures: Sarita Sharma mr HutchinsMalina RN RN aa5 Escobar Watkins, DEE DRY CLEANING MACHINE OPERATOR HELPER pm1 Amadeo Sin RN RN jd3 Corrections: (The following items were deleted from the chart) 18:54 18:51 Arm band placed on aa5 aa5 18:57 18:40 Presenting complaint: Patient states: "my blood pressure has been running high, aa5 at 136/103 at home and I came here and they wouldn't prescribe me any blood pressure medicine because my primary doctor would not allow it so when I followed up with my primary doctor he told me to stop taking nasal decongestants but it's still running high". Pt denies any symptoms. aa5
--- NOTE | 2019-06-03 19:29 | EDPHYS ---
Physician Documentation [facility] Name: Cecil Butterfield Age: 79 yrs Sex: Male : 1940 Arrival Date: 06/03/2019 Time: 18:33 Bed 5 Private MD: Catracho Aranda T ED Physician Johann Townsend HPI: 06/03 19:26 This 79 yrs old Male presents to ER via Ambulatory with complaints of High pm1 Blood Pressure. 19:26 The patient has elevated blood pressure and discovered this at home. Onset: The pm1 symptoms/episode began/occurred 1 month(s) ago. Modifying factors: The symptoms are aggravated by possibly from nasal decongestant, The symptoms are alleviated by nothing. Associated signs and symptoms: The patient has no apparent associated signs or symptoms, Pertinent negatives: chest pain, dizziness, dyspnea, headache, nausea, vomiting, weakness. Severity of symptoms: in the emergency department the blood pressure is improved, 115 mm Hg. The patient has been recently seen by a physician: the patient's primary care provider, for the same complaint and was told to stop taking decongestant about 1 month ago by his PCP and the decongestant was determined as the cause for hypertension. Was not given blood pressure medications by his PCP at that time. Patient is presenting to the ER today for blood pressure medications. Patient pressure on evaluation is 115/80. Historical: - Allergies: 18:40 No Known Allergies; aa5 - PMHx: 18:40 Anemia; Hypertension; Ulcers; GI Bleed; aa5 - PSHx: 18:40 Hernia repair; aa5 - Immunization history:: Adult Immunizations unknown. - Social history:: Smoking status: Patient/guardian denies using tobacco. - Ebola Screening: : No symptoms or risks identified at this time. ROS: 19:26 Constitutional: Negative for fever, chills, and weight loss, Eyes: Negative for injury, pm1 pain, redness, and discharge, ENT: Negative for injury, pain, and discharge, Neck: Negative for injury, pain, and swelling, Cardiovascular: Negative for chest pain, palpitations, and edema, Respiratory: Negative for shortness of breath, cough, wheezing, and pleuritic chest pain, Abdomen/GI: Negative for abdominal pain, nausea, vomiting, diarrhea, and constipation, Back: Negative for injury and pain, : Negative for injury, bleeding, discharge, and swelling, MS/Extremity: Negative for injury and deformity, Skin: Negative for injury, rash, and discoloration, Neuro: Negative for headache, weakness, numbness, tingling, and seizure. Exam: 19:26 Constitutional: This is a well developed, well nourished patient who is awake, alert, pm1 and in no acute distress. Head/Face: Normocephalic, atraumatic. Neck: Trachea midline, no thyromegaly or masses palpated, and no cervical lymphadenopathy. Supple, full range of motion without nuchal rigidity, or vertebral point tenderness. No Meningismus. Chest/axilla: Normal chest wall appearance and motion. Nontender with no deformity. No lesions are appreciated. Cardiovascular: Regular rate and rhythm with a normal S1 and S2. No gallops, murmurs, or rubs. Normal PMI, no JVD. No pulse deficits. Respiratory: Lungs have equal breath sounds bilaterally, clear to auscultation and percussion. No rales, rhonchi or wheezes noted. No increased work of breathing, no retractions or nasal flaring. Abdomen/GI: Soft, non-tender, with normal bowel sounds. No distension or tympany. No guarding or rebound. No evidence of tenderness throughout. Back: No spinal tenderness. No costovertebral tenderness. Full range of motion. Skin: Warm, dry with normal turgor. Normal color with no rashes, no lesions, and no evidence of cellulitis. MS/ Extremity: Pulses equal, no cyanosis. Neurovascular intact. Full, normal range of motion. 19:26 Neuro: Orientation: is normal, Motor: is normal, moves all fours, Gait: is steady, at a normal pace, without difficulty. Vital Signs: 18:40 BP 123 / 83; Pulse 88; Resp 16 S; Temp 98.0(O); Pulse Ox 100% on R/A; Pain 0/10; aa5 19:47 BP 122 / 87; Pulse 78; Resp 17 S; Pulse Ox 100% on R/A; Pain 0/10; jd3 MDM: 19:14 Patient medically screened. pm1 19:26 Data reviewed: vital signs. Data interpreted: Pulse oximetry: on room air is 100 %. pm1 Interpretation: normal. Counseling: I had a detailed discussion with the patient and/or guardian regarding: the historical points, exam findings, and any diagnostic results supporting the discharge/admit diagnosis, the need for outpatient follow up, a family practitioner, to return to the emergency department if symptoms worsen or persist or if there are any questions or concerns that arise at home, Patient with current blood pressure reading 115/80, 72 BPM. Administered Medications: No medications were administered Disposition: 19:56 Co-signature as Attending Physician, Johann Townsend MD I agree with the assessment and kdr plan of care. Disposition: 06/03/19 19:28 Discharged to Home. Impression: Essential (primary) hypertension. - Condition is Stable. - Discharge Instructions: Hypertension, How to Take Your Blood Pressure, [id number], DASH Eating Plan, Managing Your Hypertension. - Medication Reconciliation Form, Thank You Letter, Antibiotic Education, Prescription Opioid Use form. - Follow up: Emergency Department; When: As needed; Reason: Worsening of condition. Follow up: Private Physician; When: 2 - 3 days; Reason: Recheck today's complaints, Continuance of care, Re-evaluation by your physician. Follow up: Catracho Aranda MD; When: 2 - 3 days; Reason: Recheck today's complaints, Continuance of care, Re-evaluation by your physician. - Problem is new. - Symptoms have improved. Signatures: Johann Townsend MD MD [facility] Malina Hutchins RN RN aa5 Escobar Watkins NP [employer] pm1 Amadeo Sin RN RN jd3 Corrections: (The following items were deleted from the chart) 19:49 19:28 06/03/2019 19:28 Discharged to Home. Impression: Essential (primary) jd3 hypertension. Condition is Stable. Forms are Medication Reconciliation Form, Thank You Letter, Antibiotic Education, Prescription Opioid Use. Follow up: Emergency Department; When: As needed; Reason: Worsening of condition. Follow up: Private Physician; When: 2 - 3 days; Reason: Recheck today's complaints, Continuance of care, Re-evaluation by your physician. Follow up: Catracho Aranda; When: 2 - 3 days; Reason: Recheck today's complaints, Continuance of care, Re-evaluation by your physician. Problem is new. Symptoms have improved. pm1
== END 2019-06-03 19:49 | disposition home or self-care (01) ==
LOC: ER 18:30
DX: I10 Essential (primary) hypertension (principal)
CPT/HCPCS: 99283

== ENCOUNTER 2019-09-07 08:41 | Emergency (ER) | payer MEDICARE, BC ==
--- OUTSIDE RECORDS SUMMARY | 2019-09-07 08:43 | XMS REPORT ---
:1940 [facility] [address] [place] [id number] Care Team Providers Name Role Phone Unavailable Unavailable Unavailable Problems This patient has no known problems. Allergies, Adverse Reactions, Alerts This patient has no known allergies or adverse reactions. Medications This patient has no known medications.
[2019-09-07] MEDS ORDERED: SMZ./TMP. 800/160 MG TABLET ONE (09:21)
[2019-09-07] MEDS ORDERED: LIDOCAINE 1% W/EPI 1:100,000 MDV 20 ML VIAL ONE (09:21)
[2019-09-07] MEDS ORDERED: DOXYCYCLINE 100 MG CAP PO ONE (09:21)
--- NOTE | 2019-09-07 09:28 | ER ---
Nurse's Notes [facility] Name: Cecil Butterfield Age: 79 yrs Sex: Male : 1940 Arrival Date: 09/07/2019 Time: 08:45 Bed 6 Private MD: Catracho Aranda T Diagnosis: Cutaneous abscess of groin Presentation: 09/07 09:01 Presenting complaint: Patient states: has had a cyst to right scrotal area for 20 years iw , had an increase in size 2 weeks ago, was seen by Dr. Aranda, referred to Dr. Gordillo for possible removal , last night it became more painful and this morning it started bleeding. Transition of care: patient was not received from another setting of care. Onset of symptoms was September 07, 2019. Risk Assessment: Do you want to hurt yourself or someone else? Patient reports no desire to harm self or others. Initial Sepsis Screen: Does the patient meet any 2 criteria? No. Patient's initial sepsis screen is negative. Does the patient have a suspected source of infection? No. Patient's initial sepsis screen is negative. Care prior to arrival: None. 09:01 Method Of Arrival: Ambulatory iw 09:01 Acuity: JAMSHID 3 iw Historical: - Allergies: 09:05 No Known Allergies; iw - Home Meds: 09:05 aspirin 81 mg Oral TbEC 1 tab once daily [Active]; atenolol 25 mg Oral tab 1 tab once iw daily [Active]; Nexium 40 mg Oral cpDR 1 cap once daily [Active]; - PMHx: 09:05 Anemia; blood transfusion from bleeding ucler; GI Bleed; Hypertension; Ulcers; iw - PSHx: 09:05 Hernia repair; iw - Immunization history:: Adult Immunizations up to date. - Social history:: Smoking status: Patient/guardian denies using tobacco, the patient reports quitting approximately 45 years ago. - Ebola Screening: : Patient negative for fever greater than or equal to 101.5 degrees Fahrenheit, and additional compatible Ebola Virus Disease symptoms Patient denies exposure to infectious person Patient denies travel to an Ebola-affected area in the 21 days before illness onset No symptoms or risks identified at this time. - Family history:: not pertinent. Screenin:20 Abuse screen: Denies threats or abuse. Denies injuries from another. Nutritional sv screening: No deficits noted. Tuberculosis screening: No symptoms or risk factors identified. Fall Risk None identified. Assessment: 09:15 General: Appears in no apparent distress. uncomfortable, Behavior is calm, cooperative, sv appropriate for age. Pain: Complains of pain in right femoral area Pain currently is 5 out of 10 on a pain scale. Neuro: Level of Consciousness is awake, alert, obeys commands, Oriented to person, place, time, situation, Moves all extremities. Full function Gait is steady. Respiratory: Respiratory effort is even, unlabored, Respiratory pattern is regular, symmetrical. Derm: Skin is pink, warm \T\ dry. Abscess located on right femoral area is red, is raised, serosanguinous drainage. 09:30 Reassessment: Pt up for discharge but pt needs to have an I\T\D done, would culture sent sv and abx given. 10:35 Reassessment: Patient is alert, oriented x 3, equal unlabored respirations, skin aa5 warm/dry/pink. Vital Signs: 09:05 BP 139 / 86; Pulse 87; Resp 16 S; Temp 98.2; Pulse Ox 100% on R/A; Weight 56.7 kg; iw Height 5 ft. 6 in. (167.64 cm); 10:00 BP 136 / 84; Pulse 90; Resp 18; Pulse Ox 100% on R/A; vc 09:05 Body Mass Index 20.18 (56.70 kg, 167.64 cm) iw ED Course: 08:45 Patient arrived in ED. as 08:45 Catracho Aranda MD is Private Physician. as 08:46 Kd Castillo MD is Attending Physician. clint 09:04 Triage completed. iw 09:05 Arm band placed on. iw 09:17 Casandra Santos, ELLE is Primary Nurse. sv 09:20 Patient has correct armband on for positive identification. Placed in gown. Bed in low sv position. Call light in reach. Pulse ox on. NIBP on. Door closed. Warm blanket given. Head of bed elevated. 09:27 Catracho Aranda MD is Referral Physician. clint 09:27 Pawan Bianchi MD is Referral Physician. clint 10:10 Assist provider with I \T\ D: of an abscess on right groin Performed by Kd Castillo MD aa5 Culture sent to lab. Wound packed. plain gauze Dressing with 4X4s, tape Patient tolerated well. 10:35 Patient did not have IV access during this emergency room visit. aa5 Administered Medications: 10:05 Drug: Lidocaine-Epinephrine -2 % (1:100,000) 10 ml {Note: administered by Dr. Castillo aa5 .} Route: Infiltration; 10:29 Drug: Doxycycline 100 mg Route: PO; aa5 10:35 Follow up: Response: No adverse reaction aa5 10:29 Drug: Bactrim (160 mg-800 mg (DS) 1 tablet Route: PO; aa5 10:35 Follow up: Response: No adverse reaction aa5 Outcome: 09:28 Discharge ordered by MD. jaramillo 10:35 Discharged to home ambulatory. aa5 10:35 Condition: stable 10:35 Discharge instructions given to patient, Instructed on discharge instructions, follow up and referral plans. medication usage, wound care, Demonstrated understanding of instructions, follow-up care, medications, wound care, Prescriptions given X 3. 10:40 Patient left the ED. aa5 Signatures: Casandra Santos RN RN sv Anderson, Corey, MD MD cha Martinez, Amelia as Williams, Irene, RN RN iw Calderon, Audri, RN RN aa5 Calcote, Vanessa RN ELLE quispe
--- NOTE | 2019-09-07 09:28 | EDPHYS ---
Physician Documentation [facility] Name: Cecil Butterfield Age: 79 yrs Sex: Male : 1940 Arrival Date: 09/07/2019 Time: 08:45 Bed 6 Private MD: Catracho Aranda T ED Physician Kd Castillo HPI: 09/07 09:22 This 79 yrs old Male presents to ER via Ambulatory with complaints of Cyst. clint 09:22 The patient presents with an abscess of the pelvis, the patient presents with a swollen clint area of the right femoral area. Description: The affected area is small, localized, draining, erythematous, fluctuant. Onset: The symptoms/episode began/occurred 3 day(s) ago. Possible cause(s): unknown. Modifying factors: the symptoms are alleviated by remaining still, the symptoms are aggravated by movement, walking, pressure, squeezing the lesion and expressing the contents. Severity of symptoms: At their worst the symptoms were mild, in the emergency department the symptoms are unchanged. The patient has not experienced similar symptoms in the past. Historical: - Allergies: 09:05 No Known Allergies; iw - Home Meds: 09:05 aspirin 81 mg Oral TbEC 1 tab once daily [Active]; atenolol 25 mg Oral tab 1 tab once iw daily [Active]; Nexium 40 mg Oral cpDR 1 cap once daily [Active]; - PMHx: 09:05 Anemia; blood transfusion from bleeding ucler; GI Bleed; Hypertension; Ulcers; iw - PSHx: 09:05 Hernia repair; iw - Immunization history:: Adult Immunizations up to date. - Social history:: Smoking status: Patient/guardian denies using tobacco, the patient reports quitting approximately 45 years ago. - Ebola Screening: : Patient negative for fever greater than or equal to 101.5 degrees Fahrenheit, and additional compatible Ebola Virus Disease symptoms Patient denies exposure to infectious person Patient denies travel to an Ebola-affected area in the 21 days before illness onset No symptoms or risks identified at this time. - Family history:: not pertinent. ROS: 09:22 Constitutional: Negative for fever, chills, and weight loss, Eyes: Negative for injury, clint pain, redness, and discharge, ENT: Negative for injury, pain, and discharge, Neck: Negative for injury, pain, and swelling, Cardiovascular: Negative for chest pain, palpitations, and edema, Respiratory: Negative for shortness of breath, cough, wheezing, and pleuritic chest pain, Abdomen/GI: Negative for abdominal pain, nausea, vomiting, diarrhea, and constipation, Back: Negative for injury and pain, : Negative for injury, bleeding, discharge, and swelling, Skin: Negative for injury, rash, and discoloration, Neuro: Negative for headache, weakness, numbness, tingling, and seizure, Psych: Negative for depression, anxiety, suicide ideation, homicidal ideation, and hallucinations, Allergy/Immunology: Negative for hives, rash, and allergies, Endocrine: Negative for neck swelling, polydipsia, polyuria, polyphagia, and marked weight changes, Hematologic/Lymphatic: Negative for swollen nodes, abnormal bleeding, and unusual bruising. 09:22 MS/extremity: Positive for pain, swelling, tenderness, of the right femoral area. Exam: 09:22 Constitutional: This is a well developed, well nourished patient who is awake, alert, clint and in no acute distress. Head/Face: Normocephalic, atraumatic. Eyes: Pupils equal round and reactive to light, extra-ocular motions intact. Lids and lashes normal. Conjunctiva and sclera are non-icteric and not injected. Cornea within normal limits. Periorbital areas with no swelling, redness, or edema. ENT: Nares patent. No nasal discharge, no septal abnormalities noted. Tympanic membranes are normal and external auditory canals are clear. Oropharynx with no redness, swelling, or masses, exudates, or evidence of obstruction, uvula midline. Mucous membranes moist. Neck: Trachea midline, no thyromegaly or masses palpated, and no cervical lymphadenopathy. Supple, full range of motion without nuchal rigidity, or vertebral point tenderness. No Meningismus. Chest/axilla: Normal chest wall appearance and motion. Nontender with no deformity. No lesions are appreciated. Cardiovascular: Regular rate and rhythm with a normal S1 and S2. No gallops, murmurs, or rubs. Normal PMI, no JVD. No pulse deficits. Respiratory: Lungs have equal breath sounds bilaterally, clear to auscultation and percussion. No rales, rhonchi or wheezes noted. No increased work of breathing, no retractions or nasal flaring. Abdomen/GI: Soft, non-tender, with normal bowel sounds. No distension or tympany. No guarding or rebound. No evidence of tenderness throughout. Back: No spinal tenderness. No costovertebral tenderness. Full range of motion. Male : Normal genitalia with no discharge or lesions. MS/ Extremity: Pulses equal, no cyanosis. Neurovascular intact. Full, normal range of motion. Neuro: Awake and alert, GCS 15, oriented to person, place, time, and situation. Cranial nerves II-XII grossly intact. Motor strength 5/5 in all extremities. Sensory grossly intact. Cerebellar exam normal. Normal gait. Psych: Awake, alert, with orientation to person, place and time. Behavior, mood, and affect are within normal limits. 09:22 Skin: abscess, that is small, of the groin and right femoral area, with drainage, with fluctuance, with induration, with surrounding cellulitis, that is mild, cellulitis, that is mild, induration, that is moderate is noted. Vital Signs: 09:05 BP 139 / 86; Pulse 87; Resp 16 S; Temp 98.2; Pulse Ox 100% on R/A; Weight 56.7 kg; iw Height 5 ft. 6 in. (167.64 cm); 10:00 BP 136 / 84; Pulse 90; Resp 18; Pulse Ox 100% on R/A; vc 09:05 Body Mass Index 20.18 (56.70 kg, 167.64 cm) iw Procedures: :26 I \T\ D: Incision and drainage was performed for an abscess of the right groin and right clint femoral area Prepped with Betadine, Anesthetized with 6 ml's 1% Lidocaine w/ Epi. Incised with #11 blade. Drained small amount Packed with iodoform gauze, Dressing: sterile 4x4 gauze, the patient tolerated the procedure well. MDM: 09:00 Patient medically screened. [facility] : Data reviewed: vital signs, nurses notes. [facility] 09/07 09: Order name: Wound Culture [facility] 09/07 09: Order name: Dressing - Wound; Complete Time: : [facility] 09/07 09: Order name: Gloves, Sterile; Complete Time: [facility] 09/07 09: Order name: Setup Suture Tray; Complete Time: [facility] Administered Medications: 10:05 Drug: Lidocaine-Epinephrine -2 % (1:100,000) 10 ml {Note: administered by Dr. Castillo aa5 .} Route: Infiltration; 10:29 Drug: Doxycycline 100 mg Route: PO; aa5 10:35 Follow up: Response: No adverse reaction aa5 10:29 Drug: Bactrim (160 mg-800 mg (DS) 1 tablet Route: PO; aa5 10:35 Follow up: Response: No adverse reaction aa5 Disposition: 09/07/19 09:28 Discharged to Home. Impression: Cutaneous abscess of groin. - Condition is Stable. - Discharge Instructions: Skin Abscess, Incision and Drainage, Skin Abscess, [id number], Incision and Drainage, Care After. - Prescriptions for Tylenol- Codeine #3 300-30 mg Oral Tablet - take 2 tablets by ORAL route every 6 hours As needed; 20 tablet. Doxycycline Hyclate 100 mg Oral Tablet - take 1 tablet by ORAL route every 12 hours; 20 tablet. Bactrim DS 800- 160 mg Oral Tablet - take 1 tablet by ORAL route every 12 hours for 10 days; 20 tablet. - Medication Reconciliation Form, Thank You Letter, Antibiotic Education, Prescription Opioid Use form. - Follow up: Catracho Aranda MD; When: 2 - 3 days; Reason: Recheck today's complaints, Continuance of care, Re-evaluation by your physician. Follow up: Pawan Bianchi MD; When: 2 - 3 days; Reason: Recheck today's complaints, Re-evaluation by your physician. - Problem is new. - Symptoms have improved. Signatures: Dispatcher [employer] Kd Cotto MD MD cha Williams, Irene, RN RN iw Calderon, Audri, RN RN aa5 Corrections: (The following items were deleted from the chart) 10:40 09:28 09/07/2019 09:28 Discharged to Home. Impression: Cutaneous abscess of groin. aa5 Condition is Stable. Forms are Medication Reconciliation Form, Thank You Letter, Antibiotic Education, Prescription Opioid Use. Follow up: Catracho Aranda; When: 2 - 3 days; Reason: Recheck today's complaints, Continuance of care, Re-evaluation by your physician. Follow up: Pawan Bianchi; When: 2 - 3 days; Reason: Recheck today's complaints, Re-evaluation by your physician. Problem is new. Symptoms have improved. clint
[2019-09-07 10:46] VITALS: TEMP 98.2; O2SAT 100
[2019-09-07 10:47] VITALS: BP 136/84
== END 2019-09-07 10:40 | disposition home or self-care (01) ==
LOC: ER 08:41
PROC: 0J9B0ZZ Drainage of Perineum Subcutaneous Tissue and Fascia, Open Approach (ICD-10-PCS; principal; 2019-09-07)
PROC: 0J9L0ZZ Drainage of Right Upper Leg Subcutaneous Tissue and Fascia, Open Approach (ICD-10-PCS; 2019-09-07)
DX: L02.214 Cutaneous abscess of groin (principal)
CPT/HCPCS: 87070; 87205; 99284

== ENCOUNTER 2021-02-25 17:52 | Emergency (ER) | payer MEDICARE, BC ==
--- OUTSIDE RECORDS SUMMARY | 2021-02-25 17:59 | XMS REPORT | Continuity of Care Document ---
:1940 Author Organization [facility] t Address [address] [place] [address] Care Team Providers Name Role Phone Pollo Aranda Primary Care Physician Vadim ALMEIDA, A Attending Clinician Unavailable Provider, Urgent Care Attending Clinician Unavailable Alverto TODD Attending Clinician Rodrigue COLON Attending Clinician Deborah VENCES T Attending Clinician Rodrigue COLON Admitting Clinician Deborah VENCES T Admitting Clinician Payers Payer Name Policy Type Policy Effective Date Expiration Source Number Date MEDICAREMEDICARE PART [id number] 2004 Un iversity of A & 00:00:00 [place] [facility] [id number] 2003- [facility] [id number] [place] [phone] BCBS OF [facility] [id number] 2017 [facility] michael [id number] 00:00:00 [facility] Medical 4 [id number] [facility] [id number], [place] [address]Medicare Supplement Problems Condition Condition Condition Status Onset Resolution Last Treating Co mments Source Name Details Category Date Date Treatment Clinician Date S/P CABG x S/P CABG x Disease Active U nivers 3 3 4-28 ity of 00:00: [place] 00 Medical Branch Coronary Coronary Disease Active Overview: Un mark artery artery 4-19 Added ity of disease of disease of 00:00: automatic [place] iliamna iliamna 00 ally from Medical artery of artery of request [facility] iliamna iliamna for heart with heart with surgery stable 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 Chest pain Chest pain Disease Active U nivers 4-14 ity of 00:00: [place] 00 Medical Branch NSTEMI NSTEMI Disease Active Univers (non-ST (non-ST 4-14 ity of elevated elevated 00:00: [place] myocardial myocardial 00 Me dical infarction infarction Br anch ) ) Iron Iron Disease Active Overview: Univer s deficiency deficiency 4-13 Added it y of anemia, anemia, 00:00: automatic [place] unspecifie unspecifie 00 ally from Medical d iron d iron request Branch deficiency deficiency for anemia anemia surgery type type [id number] Allergies, Adverse Reactions, Alerts This patient has no known allergies or adverse reactions. Social History Social Habit Start Date Stop Date Quantity Comments Source Exposure to Not sure University of SARS-CoV-2 (event) [facility] History of tobacco Cigarette Smoker University of use [facility] Cigarettes smoked 2021-01-21 2021-01-21 Univers ity of current (pack per 00:00:00 00:00:00 ) - Reported Branch Cigarette 2021-01-21 2021-01-21 University of pack-years 00:00:00 00:00:00 [facility] Tobacco use and 2021-01-21 2021-01-21 Never used Universit y of exposure 00:00:00 00:00:00 [facility] Alcohol intake 2021-01-21 2021-01-21 Current drinker Unive rsity of 00:00:00 00:00:00 of alcohol [facility] (finding) [place] Alcohol Comment 2021-01-06 2021-01-06 socially Universit y of 00:00:00 00:00:00 [facility] Sex Ass[birth year] At [birth year] Universit y of 00:00:00 00:00:00 [facility] Smoking Status Start Date Stop Date Source Former smoker 2021-01-21 00:00:00 2021-01-21 00:00:00 [facility] Medical Branch Medications Ordered Filled Start Stop Current Ordering Indication Dosage Frequency Signature Comments Components Source Medication Medication Date Date Medication? Clinician (SIG) Name Name aspirin 81 2020- Yes S/P CABG x 81mg Take 1 Univers mg chewable 01-28 3 tablet by it y of tablet 00:00: 04:59 mouth [place] 00 :00 daily for Medical 90 days. Branch atorvastati 2020- Yes S/P CABG x 80mg Take 1 Univers n 80 mg 01-28 3 tablet by ity of tablet 00:00: 04:59 mouth at [place] 00 :00 bedtime Medical for 90 Branch days. clopidogreL 2020- Yes S/P CABG x 75mg Take 1 Univers 75 mg 01-28 3 tablet by ity of tablet 00:00: 04:59 mouth [place] 00 :00 daily for Medical 90 days. Branch metoprolol 2020- Yes S/P CABG x 25mg Take 1 Univers tartrate 25 01-28 3 tablet by it y of mg tablet 00:00: 04:59 mouth [place] 00 :00 every 12 Medical (twelve) Branch hours for 90 days. pantoprazol 2020- Yes S/P CABG x 40mg Take 1 Univers e 40 mg EC 01-28 3 tablet by ity of tablet 00:00: 04:59 mouth [place] 00 :00 daily for Medical 30 days. Branch acetaminoph 2020- Yes S/P CABG x 650mg Take 2 Univers en 325 mg 01-28 3 tablets by ity of tablet 00:00: 04:59 mouth [place] 00 :00 every 6 Medical (six) Branch hours as needed for Temp > 38.5 C for up to 30 days. ferrous 2020- Yes S/P CABG x 325mg Take 1 Univers sulfate 325 01-28 3 tablet by it y of mg (65 mg 00:00: 04:59 mouth 2 [place] iron) 00 :00 (two) Medical tablet times Branch daily before breakfast and dinner for 30 days. acetaminoph 2020- Yes acute pain 1{tbl} Take 1 Univers en-codeine 01-28-14 tablet by ity of 300-30 mg 00:00: 04:59 mouth [place] tablet 00 :00 every 6 Medical (six) Branch hours as needed for Pain (scale 7-10) for up to 7 days. Indication s: acute pain metoprolol Yes 25mg 25 mg, Unive rs tartrate 5-04 Oral, ity of (LOPRESSOR) 13:00: Q12H, [place] tablet 25 00 First dose Medi joana mg (after Branch last modificati on) on Mon01/26/21 at 0800, Until Discontinu ed, Routine potassium No 44meq 44 mEq, IV Univers phosphate 01-26 Piggyback, ity of 44 mEq in 11:08: 12:56 ONCE, 1 [place] NaCl 0.9% 00 :00 dose, [facility] Medic al (NS) 250 mL 01/26/21 at [facility] piggyback 0615, 250 mL metoprolol No 12.5mg 12.5 mg, Univers tartrate 01-26- Oral, ity of (LOPRESSOR) 04:45: 04:33 ONCE, 1 [place] half tablet 00 :00 dose, Mon Med ical 12.5 mg 01/25/21 at Branch 2345, Routine metoprolol 2020- No 12.5mg 12.5 mg, Univers succinate 01-25- Oral, ity of XL (TOPROL 14:00: 12:04 DAILY, [place] XL) tablet 00 :59 First dose Med ical 12.5 mg on Mon01/25/21 at 0900, Until Discontinu ed, Routine metoprolol 2020- No 12.5mg 12.5 mg, Univers tartrate 01-25- Oral, ONCE ity of (LOPRESSOR) 12:14: 13:06 NOW, 1 [place] as half tablet 00 :00 dose, Mon Med ical 12.5 mg 01/25/21 at Branch 0715, Routine polyethylen 2020- No 17g 17 g, Univ ers e glycol 01-25- Oral, ity of 3350 powder 05:00: 11:00 ONCE, 1 [place] 17 g 00 :00 dose, Mon Medical 01/25/21 at Branch 0000, Routine albumin 2020- No 12.5g 12.5 g, IV Un mark (ALBUMINAR- 01-24 05-02 Infusion, it y of 5) 5 % 20:15: 20:56 ONCE, 1 [place] injection 00 :00 dose, [place] Medic al 12.5 g 01/24/21 at Branch 1515, 250 mL
Marie cation: POST-OPERA TIVE VOLUME RESUSCITAT ION-CARDIA C SURGERY
Comments: May only be used if 3L or more of crystalloi d has been administer ed within a given 24 hour period without an adequate hemodynami c response. magnesium 2020- No 30mL 30 mL, Unive rs hydroxide 01-24-04 Oral, ity of (MILK OF 19:00: 11:09 DAILY, [place] MAGNESIA) 00 :59 First dose Medi joana 400 mg/5 mL on [facility] suspension 01/24/21 at 30 mL 1400, Until Discontinu ed, Routine lactated 2020- No 250mL at 999 Unive rs ringers IV 01-24 05- mL/hr, 250 it y of infusion 15:45: 15:15 mL, [place] 250 mL 00 :00 Intravenou Medical s, ONCE, 1 [place] dose, [place] 01/24/21 at 1045, Routine clopidogreL Yes 75mg 75 mg, Univ ers (PLAVIX) 01-24 Oral, ity of tablet 75 14:00: DAILY, [place] mg 00 First dose Medical on [facility] 01/24/21 at 0900, Until Discontinu ed, Routine
store team member approving Restricted medication : ESCOBAR CABRERA aspirin Yes 81mg 81 mg, Univers chewable 01-24 Oral, ity of tablet 81 14:00: DAILY, [place] mg 00 First dose Medical on [facility] 01/24/21 at 0900, Until Discontinu ed, Routine pantoprazol 2020- Yes 40mg 40 mg, Uni vers e 01-24 Oral, ity of (PROTONIX) 14:00: 13:59 DAILY, 30 [place] EC tablet 00 :00 doses, Medical 40 mg First dose Branch on [place] 01/24/21 at 0900, Last dose on 02/22/21 at 0900, Routine atorvastati Yes 80mg 80 mg, Univ ers n (LIPITOR) 02 Oral, QHS, it y of tablet 80 02:00: First dose [place] mg 00 on Sat Medical 01/23/21 at Branch 2100, Until Discontinu ed, Routine ferrous Yes 325mg 325 mg, Univer s sulfate 01-23 Oral, ity of tablet 325 21:30: BIDAC, [place] mg 00 First dose Medical on Sat Branch 01/23/21 at 1630, Until Discontinu ed, Routine Sliding Yes Subcutaneo Univ ers Scale 01-23 us, AC+HS, ity of Insulin-Reg 16:30: First dose [place] ular + Fsbg 00 on Sat Medica l Testing 01/23/21 at Branch 1130, Until Discontinu ed, Routine metoprolol No 12.5mg 12.5 mg, Univers tartrate 01-23 05-04 Oral, ity of (LOPRESSOR) 14:15: 12:03 Q12H, [place] half tablet 00 :50 First dose Me dical 12.5 mg on Sat Branch 01/23/21 at 0915, Until Discontinu ed, Routine glucagon Yes 1mg 1 mg, Univers (GLUCAGEN 01-23 Intramuscu ity of DIAGNOSTIC 14:02: lar, PRN, [place] KIT) 37 Starting Medical injection 1 01/23/21 Br anch mg at 0902, Until Discontinu ed, EMBER, Blood Glucose < or = 70 mg/dL and patient is unable to swallow or has mental changes. dextrose 50 Yes 25mL 25 mL, Univ ers % in water 01-23 Slow IV ity of (D50W) 14:02: Push, PRN, [place] injection 37 Starting Medica l 25 mL 01/23/21 Branch at 0902, Until Discontinu ed, EMBER, Blood Glucose < or = 70 mg/dL and patient is unable to swallow or has mental status changes. ondansetron Yes 4mg 4 mg, Slow Univers (ZOFRAN 01-23 IV Push, ity of (PF)) 14:02: Q6HPRN, [place] injection 4 37 Starting Medi joana mg 01/23/21 Branch at 0902, Until Discontinu ed, Routine, Nausea and Vomiting (N/V) sodium 2020-0 Yes 1{enema 1 Enema, Univ ers phosphates 01-23 } Rectal, ity of (READY-TO-U 14:02: PRN - SEE [place] SE ENEMA) 37 INSTRUCTIO Medi joana 19-7 NS, 1 Branch gram/118 mL dose, enema 1 Starting Enema 01/23/21 at 0902, Until Discontinu ed, Routine, Constipati on, For bowel movemnet bisacodyL 2020-0 Yes 10mg 10 mg, Univer s (DULCOLAX) 01-23 Rectal, ity of suppository 14:02: PRN - SEE [place] 10 mg 36 INSTRUCTIO Medical NS, 1 Branch dose, Starting 01/23/21 at 0902, Until Discontinu ed, Routine, Constipati on, For bowel movent acetaminoph 2020-0 Yes 650mg 650 mg, Un mark en 01-23 Oral, ity of (TYLENOL) 14:02: Q6HPRN, [place] tablet 650 36 Starting Medic al mg 01/23/21 Branch at 0902, Until Discontinu ed, Routine, Temp > 38.5 C acetaminoph 2020-0 Yes 2{tbl} 2 tablet, Univers en-codeine 01-23 Oral, ity of (TYLENOL 14:02: Q4HPRN, [place] #3) 300-30 36 Starting Medic al mg tablet 2 01/23/21 Br anch tablet at 0902, Until Discontinu ed, Routine, Pain (scale 7-10) acetaminoph 2020-0 Yes 1{tbl} 1 tablet, Univers en-codeine 5-01 Oral, ity of (TYLENOL 14:02: Q6HPRN, [place] #3) 300-30 36 Starting Medic al mg tablet 1 01/23/21 Br anch tablet at 0902, Until Discontinu ed, Routine, Pain (scale 4-6) sodium 2020-0 2020- No 30mmol 30 mmol, Univ ers phosphate 01-23 IV ity of 30 mmol in 12:45: 16:59 Piggyback, [place] NaCl 0.9% 00 :00 ONCE, 1 Medical (NS) 250 mL dose, Sat [facility] piggyback 01/23/21 at 0745, 250 mL digoxin 2020- No 250ug 250 mcg, [facility] ers (LANOXIN) 01-23 Intravenou ity of injection 01:15: 00:58 s, ONCE, 1 [place] 250 mcg 00 :00 dose, [facility] 01/22/21 at Branch 2015, Routine potassium 2020- No 40meq 40 mEq, Uni vers chloride 40 01-23 Intravenou i ty of mEq in 100 01:00: 04:58 s, ONCE, 1 [place] mL IVPB 00 :00 dose, [facility] 01/22/21 at Branch 2000, 100 mL digoxin 2020- No 250ug 250 mcg, [facility] ers (LANOXIN) 01-22 Intravenou ity of injection 20:01: 20:06 s, ONCE, 1 [place] 250 mcg 00 :00 dose, [facility] 01/22/21 at Branch 1515, Routine digoxin 2020- No 250ug 250 mcg, [facility] ers (LANOXIN) 01-22 Intravenou ity of injection 17:15: 16:15 s, ONCE, 1 [place] 250 mcg 00 :00 dose, [facility] 01/22/21 at Branch 1215, Routine furosemide 2020- No 20mg 20 mg, [facility] ers (LASIX) 01-22 Slow IV ity of injection 17:15: 18:46 Push, [place] 20 mg 00 :00 ONCE, 1 Medical dose, [facility] 01/22/21 at 1215, Routine albumin 2020- No 12.5g 12.5 g, IV Un mark (ALBUMINAR- 01-22 Infusion, it y of 5) 5 % 16:30: 15:24 ONCE, 1 [place] injection 00 :00 dose, Fri Medic al 12.5 g 01/22/21 at Branch 1130, 250 mL
Marie cation: POST-OPERA TIVE VOLUME RESUSCITAT ION-CARDIA C SURGERY
Comments: May only be used if 3L or more of crystalloi d has been administer ed within a given 24 hour period without an adequate hemodynami c response. D5W-LR IV 2020- No 1000mL at 75 Univ ers infusion 01-22 0501 mL/hr, IV ity o f 1,000 mL 15:45: 14:06 Infusion, [place] as 00 :55 CONTINUOUS Medical , Starting Branch 01/22/21 at 1045, Until 01/23/21 at 0906, EMBER magnesium 2020- No 1g 1 g, IV Univ ers sulfate in 01-22 Piggyback, it y of D5W 1 15:30: 15:35 ONCE, 1 [place] gram/100 mL 00 :00 dose, Mon Med ical RTU IV 01/22/21 at Branch Piggyback 1 1030, 100 g mL albumin 2020- No 12.5g 12.5 g, IV Un mark (ALBUMINAR- 01-22 Infusion, it y of 5) 5 % 14:20: 14:25 ONCE, 1 [place] injection 00 :00 dose, Mon Medic al 12.5 g 01/22/21 at Branch 0930, 250 mL
Marie cation: POST-OPERA TIVE VOLUME RESUSCITAT ION-CARDIA C SURGERY
Comments: May only be used if 3L or more of crystalloi d has been administer ed within a given 24 hour period without an adequate hemodynami c response. digoxin No 250ug 250 mcg, Univ ers (LANOXIN) 01-22 Intravenou ity of injection 14:07: 14:11 s, ONCE, 1 [place] 250 mcg 00 :00 dose, [facility] Medical 01/22/21 at Branch 0915, Routine pantoprazol No 40mg 40 mg, Uni vers e 01-22 Oral, ity of (PROTONIX) 14:00: 14:06 DAILY, [place] EC tablet 00 :55 First dose Medi joana 40 mg on Mon Branch 01/22/21 at 0900, Until Discontinu ed, Routine D5W-LR IV 2020- No 1000mL at 42 Univ ers infusion 01-22 mL/hr, IV ity o f 1,000 mL 13:15: 15:40 Infusion, [place] as 00 :21 CONTINUOUS Medical , Starting Branch [facility] 01/22/21 at 0815, Until [facility] 01/22/21 at 1040, EMBER digoxin 2020- No .5mg 500 mcg Univer s (LANOXIN) 01-22 (0.5 mg), ity of injection 11:29: 11:47 Intravenou [place] 500 mcg 00 :00 s, ONCE, 1 Medica l dose, [facility] 01/22/21 at 0630, Routine sodium No 30mmol 30 mmol, Univ ers phosphate 01-22 IV ity of 30 mmol in 10:24: 15:28 Piggyback, [place] NaCl 0.9% 00 :00 ONCE, 1 Medical (NS) 250 mL dose, Fri [facility] piggyback 01/22/21 at 0530, 250 mL metoprolol 2020- No 12.5mg 12.5 mg, Univers tartrate 01-22 Oral, ONCE ity of (LOPRESSOR) 09:13: 09:27 NOW, 1 [place] as half tablet 00 :00 dose, Fri Med ical 12.5 mg 01/22/21 at Branch 0415, Routine calcium No 2g 2 g, IV Univer s gluconate 2 01-22 Infusion, it y of g in NaCl 09:09: 09:28 ONCE, 1 [place] 100 mL 00 :00 dose, Fri Medical (ISO-OSM) 01/22/21 at [facility] RTU IV 0415, infusion 2 Routine g furosemide No 20mg 20 mg, Univ ers (LASIX) 01-22 Slow IV ity of injection 08:39: 09:05 Push, [place] 20 mg 00 :00 ONCE, 1 Medical dose, [facility] 01/22/21 at 0345, Routine atorvastati 2020- No 80mg 80 mg, Uni vers n (LIPITOR) 01-2201 Oral, QHS, i ty of tablet 80 02:00: 14:06 First dose [place] mg 00 :55 on [facility] Medical 01/21/21 at Branch 2100, Until Discontinu ed, Routine metoprolol 2020- No 12.5mg 12.5 mg, Univers tartrate 01-22 Oral, BID, ity of (LOPRESSOR) 01:00: 15:21 First dose [place] half tablet 00 :01 (after Medica l 12.5 mg last Branch modificati on) on [place] 01/21/21 at 2000, Until Discontinu ed, Routine clopidogreL No 75mg 75 mg, Uni vers (PLAVIX) 01-21 Oral, ity of tablet 75 22:00: 14:06 DAILY, [place] mg 00 :55 First dose Medical on [facility] Branch 01/21/21 at 1700, Until Discontinu ed, Routine
store team member approving Restricted medication : ESCOBAR CABRERA albumin No 25g 25 g, IV Unive rs (ALBUMINAR 01-21 Infusion, ity of 25%) 25 % 15:45: 14:39 ONCE, 1 [place] injection 00 :00 dose, [facility] Medic al 25 g 01/21/21 at Branch 1045, 100 mL
Marie cation: NON-APPROV ED INDICATION - PHARMACY WILL CALL ORDERING PROVIDER<b r>Specific Indication : post cabg
Fa culty Requesting Approval: ANATOLIY CARDONA sennosides No 8.6mg 8.6 mg, Un mark (SENOKOT) 01-21 Oral, ity of tablet 8.6 14:00: 14:06 DAILY, [place] mg 00 :55 First dose Medical on [facility] Branch 01/21/21 at 0900, Until Discontinu ed, Routine docusate 2020- No 100mg 100 mg, Univ ers (COLACE) 01-21 Oral, ity of capsule 100 14:00: 14:06 DAILY, [place] as mg 00 :55 First dose Medical on [facility] Branch 01/21/21 at 0900, Until Discontinu ed, Routine magnesium 2020- No 2g 2 g, IV Univ ers sulfate in 01-21 Piggyback, it y of water 2 13:00: 12:43 ONCE, 1 [place] gram/50 mL 00 :00 dose, [facility] Medi joana (4 %) 01/21/21 at [place] infusion 2 0800, g Routine aspirin No 81mg 81 mg, Univers chewable 01-2101 Oral, ity of tablet 81 06:30: 14:06 DAILY, [place] mg 00 :55 First dose Medical on [place] Branch 01/21/21 at 0130, Until Discontinu ed, Routine pantoprazol 2020- No 40mg 40 mg, IV Univers e 01-21 Piggyback, ity of (PROTONIX) 05:00: 13:07 Q24H, [place] 40 mg in 00 :02 First dose Medic al NaCl 0.9% on [facility] Branch (NS) 100 mL 01/21/21 at MINI-BAG 0000, Until Discontinu ed, 100 mL NaCl 0.9% 2020- No 250mL at 999 Univ ers (NS) bolus 01-21 mL/hr, 250 it y of infusion 04:07: 04:14 mL, IV [place] 250 mL 00 :00 Piggyback, Medical ONCE, 1 Branch dose, 01/20/21 at 2315, STAT potassium No 15mmol IV Unive rs phosphate 01-21 Piggyback, ity of 15 mmol in 04:00: 07:22 ONCE, 1 [place] as NaCl 0.9% 00 :00 dose, [facility] Medic al (NS) 150 mL 01/20/21 at Br anch piggyback 2300, 150 mL lidocaine 2020- No 100mg 100 mg, Uni vers 2% 01-21 Slow IV ity of (XYLOCAINE) 03:45: 03:39 Push, [place] syringe 100 00 :00 ONCE, 1 Medic al mg dose, [facility] Branch 01/20/21 at 2245, Routine calcium 2020- No 2g 2 g, IV Univer s gluconate 2 01-21 Infusion, it y of g in NaCl 01:00: 01:18 ONCE, 1 [place] 100 mL 00 :00 dose, [facility] Medical (ISO-OSM) 01/20/21 at [facility] RTU IV 2000, infusion 2 Routine g DOBUTamine 2020- No 2.5ug/k 2.5-20 U nivers (DOBUTREX) 01-21 05-01 g/min mcg/kg/min i ty of 500 mg in 00:22: 14:06 ?50 kg [place] 250 mL 33 :55 (3.75-30 Medical (Fixed mL/hr), IV Branch Dose) D5W Infusion, infusion TITRATE, RTU MAP Goal > or = 65 mmHg, Starting Mon01/20/21 at 1922
In itiate infusion at 2.5 mcg/kg/min . &nb sp;Increas e by 1 mcg/kg/min every 15 minutes as needed to reach and maintain goal blood pressure.& nbsp;&nbsp ;Maximum dose = 20 mcg/kg/min . If goal not maintained at maximum allowed dose, contact prescriber .
niCARdipine 2020- No 2.5mg/h 2.5-15 Univers (CARDENE 01-21 05-01 mg/hr ity of I.V.) 40 mg 00:11: 14:06 (12.5-75 [place] in NaCL 200 45 :55 mL/hr), IV Me dical mL (RTU) Infusion, Branch infusion TITRATE, SBP Goal < 180 mmHg, Starting Mon01/20/21 at 1911
In itiate infusion at 2.5 mg/hr.&nbs p; Ti trate by 2.5 mg/hr every 5 minutes to 15 minutes as needed to achieve and maintain goal blood pressure. Maximum dose = 15 mg/hr. If goal not maintained at maximum allowed dose, contact prescriber .
FENTanyl 2020- No 150ug 150 mcg, Uni vers STATEMENT PROCESSOR (5 01-20 04-30 Intravenou ity of mcg/mL NS) 23:30: 13:00 s, 30 mL, [place] 00 :33 CONTINUOUS Medical , Starting Branch Mon01/20/21 at 1830, Until Mon01/22/21 at 0800 propofoL IV 2020- No 5ug/kg/ 5-50 Un mark infusion 01-20 04-29 min mcg/kg/min ity of 23:23: 23:22 ?50 kg [place] 25 :25 (1.5-15 Medical mL/hr), IV Branch Infusion, TITRATE, Sedation-R ASS score (0 to -1), Starting Mon01/20/21 at 1823, For 1 day
Ini tiate infusion at 5 mcg/kg/min and titrate by 5 mcg/kg/min every 30 seconds to 10 minutes to goal sedation score. Maximum dose = 50 mcg/kg/min . If goal not maintained at maximum allowed dose, contact prescriber . &nbs p;Instruct ions in the first 2 hours in ICU, if patient is hypertensi ve (systolic blood pressure persists > 150 MAP > 100), the infusion rate may be increased to a maximum of 50 mcg/kg/min . Stop propofol when bladder or other central temperatur e is => 36 C. May use morphine at this time (may require order to be entered) if sedation is still needed. Do not continue propofol after central temperatur e is > 36 C unless requested by [address] Resident or Faculty or SICU Faculty. Tubing and unused portions of vials should be discarded after 12 hours
albumin 2020- No 25g 25 g, IV Unive rs (ALBUMINAR- 01-20 Infusion, it y of 5) 5 % 23:09: 23:13 ONCE, 1 [place] injection 00 :00 dose, Mon Medic al 25 g 01/20/21 at Branch 1815, 500 mL
Marie cation: POST-OPERA TIVE VOLUME RESUSCITAT ION-CARDIA C SURGERY
Comments: May only be used if 3L or more of crystalloi d has been administer ed within a given 24 hour period without an adequate hemodynami c response. D5W-LR IV 2020- No 1000mL at 50 Univ ers infusion 01-20 04-30 mL/hr, IV ity o f 1,000 mL 22:30: 13:01 Infusion, [place] as 00 :26 CONTINUOUS Medical , Starting Branch Mon01/20/21 at 1730, Until Mon01/22/21 at 0801, EMBER ceFAZolin 2020- No 2000mg 2 g (2,000 Univers in dextrose 01-20 04-29 mg), IV ity of (iso-os) 22:30: 12:43 [place]gyback, [place] (ANCEF) 2 00 :00 Q8H ABX, 3 Medi joana gram/100 mL doses, Branch Piggyback 2 First dose g on Mon01/20/21 at 1730, Last dose on [place] 01/21/21 at 0930, 100 mL
Reas on for Anti-Infec tive: Surgical Prophylaxi s
Surgi joana Prophylaxi s: Cardiothor acic
Du ration of therapy: within 24 hours of surgery ondansetron No 4mg 4 mg, Slow Univers (ZOFRAN 01-20 IV Push, ity of (PF)) 22:26: 14:06 Q6HPRN, [place] injection 4 42 :55 Starting Medi joana mg [facility] Branch 01/20/21 at 1726, Until 01/23/21 at 0906, EMBER, Nausea and Vomiting (N/V) acetaminoph No 2{tbl} 2 tablet, Univers en-codeine 01-20 Oral, ity of (TYLENOL 22:23: 14:06 Q4HPRN, [place] #3) 300-30 25 :55 Starting Medic al mg tablet 2 Mon [place] tablet 01/20/21 at 1723, Until 01/23/21 at 0906, Routine, Pain (scale 7-10) metoprolol 2020- No [id number] 25mg 25 mg, Univers tartrate 01-20 Oral, ONCE ity of (LOPRESSOR) 11:00: 11:49 NOW, 1 [place] as tablet 25 00 :00 dose, Mon Medic al mg 01/20/21 at Branch 0600, Routine, DSU Pre-op aspirin 81 2020- No NSTEMI 81mg Take 1 Un mark mg chewable 01-10 (non-ST tablet by ity of tablet 00:00: 00:00 elevated mouth [place] 00 :00 myocardial daily for Medi joana infarction) 90 days. [facility] pantoprazol 2020- No NSTEMI 40mg Take 1 U nivers e 40 mg EC 01-10 (non-ST tablet by ity of tablet 00:00: 00:00 elevated mouth [place] 00 :00 myocardial daily for Medi joana infarction) 90 days. [facility] atorvastati 2021-0 2021- No NSTEMI 80mg Take 1 U nivers n 80 mg 01-09 (non-ST tablet by ity of tablet 00:00: 00:00 elevated mouth [place] 00 :00 myocardial every Medical infarction) evening [facility] h for 90 days. metoprolol 2020- No NSTEMI 50mg Take 1 Un mark tartrate 50 01-09 (non-ST tablet by ity of mg tablet 00:00: 00:00 elevated mouth 2 [place] 00 :00 myocardial (two) Medical infarction) times Branch daily for 90 days. clopidogreL 2020- No NSTEMI 75mg Take 1 U nivers (PLAVIX) 75 01-09 (non-ST tablet by ity of mg tablet 00:00: 00:00 elevated mouth [place] 00 :00 myocardial daily for Medi joana infarction) 90 days. [facility] lisinopriL 2020- NSTEMI 2.5mg Take 1 U nivers 2.5 mg 01-09 (non-ST tablet by ity of tablet 00:00: 00:00 elevated mouth [place] 00 :00 myocardial daily for Medi joana infarction) 90 days. [facility] Immunizations Ordered Filled Immunization Date Status Comments [facility] e Immunization Name Name SARS-COV-2 COVID-19 2020-12-20 Completed Unive rsity of MODERNA VACCINE 00:00:00 [facility] SARS-COV-2 COVID-19 2020-11-22 Completed Unive rsity of MODERNA VACCINE 00:00:00 [facility] Influenza Virus 2020-08-08 Completed Universit y of Vaccine 00:00:00 [facility] Vital Signs Vital Name Observation Time Observation Value Comments Source Systolic blood 2021-01-28 15:45:00 105 mm[Hg] Univer sity of pressure [facility] Diastolic blood 2021-01-28 15:45:00 62 mm[Hg] Unive rsity of pressure [facility] Heart rate 2021-01-28 15:45:00 104 /min [facility] Body temperature 2021-01-28 12:50:00 36.61 [facility] Oxygen saturation in 2021-01-28 12:50:00 96 /min [facility] Arterial blood by [facility] Pulse oximetry Branch Body weight 2021-01-28 04:00:00 51.393 kg [facility] BMI 2021-01-28 04:00:00 18.29 kg/m2 [facility] Respiratory rate 2021-01-28 00:00:00 16 /min [facility] Body height 2021-01-20 11:31:00 167.6 cm [facility] Procedures Procedure Date / Time Performing Clinician Source Performed POCT GLUCOSE 2021-01-28 13:37:00 Escobar Cabrera [facility] (AUTOMATED) [facility] POCT GLUCOSE 2021-01-28 01:37:00 Escobar Cabrera [facility] (AUTOMATED) [facility] POCT GLUCOSE 2021-01-27 23:27:00 Escobar Cabrera [facility] (AUTOMATED) [facility] POCT GLUCOSE 2021-01-27 18:43:00 Escobar Cabrera [facility] (AUTOMATED) [facility] PHOSPHORUS 2021-01-27 14:35:00 Ju Recio [facility] MAGNESIUM 2021-01-27 14:35:00 Ju Recio [facility] BASIC METABOLIC PANEL 2021-01-27 14:35:00 Ju Recio [facility] (NA, K, CL, CO2, Medical Branch GLUCOSE, BUN, CREATININE, CA) POCT GLUCOSE 2021-01-27 14:24:00 Escobar Cabrera [facility] (AUTOMATED) [facility] POCT GLUCOSE 2021-01-27 01:11:00 Escobar Cabrera [facility] (AUTOMATED) [facility] PHOSPHORUS 2021-01-26 09:18:00 Curtis [facility] MAGNESIUM 2021-01-26 09:18:00 Curtis [facility] BASIC METABOLIC PANEL 2021-01-26 09:18:00 Curtis [facility] (NA, K, CL, CO2, Medical Branch GLUCOSE, BUN, CREATININE, CA) CBC WITH DIFF 2021-01-26 09:18:00 Curtis, Ancelmo [facility] BASIC METABOLIC PANEL 2021-01-26 05:24:00 Bairon [facility] (NA, K, CL, CO2, Medical Branch GLUCOSE, BUN, CREATININE, CA) CBC WITH DIFF 2021-01-26 05:24:00 Bairon [facility] POCT GLUCOSE 2021-01-26 01:12:00 Escobar Cabrera [facility] (AUTOMATED) Medical Branch POCT GLUCOSE 2021-01-25 21:52:00 Escobra Cabrera [facility] (AUTOMATED) [facility] POCT GLUCOSE 2021-01-25 14:00:00 Escobar Cabrera [facility] (AUTOMATED) [facility] XR CHEST 2 VW 2021-01-25 10:25:24 Syed [facility] HB ECG ROUTINE & RHYTHM 2021-01-25 08:48:34 Bairon [facility] STRIP Medical Branch MAGNESIUM 2021-01-25 08:32:00 [facility] 2021-01-25 08:32:00 [facility] ([facility], K, CL, CO2, [facility] GLUCOSE, BUN, CREATININE, CA) POCT GLUCOSE 2021-01-24 17:42:00 Escobar Cabrera [facility] (AUTOMATED) Medical Branch DIGOXIN 2021-01-24 15:09:00 Syed [facility] POCT GLUCOSE 2021-01-24 13:53:00 Escobar Cabrera [facility] (AUTOMATED) [facility] BASIC METABOLIC PANEL 2021-01-24 10:06:00 Syed [facility] (NA, K, CL, CO2, Medical Branch GLUCOSE, BUN, CREATININE, CA) CBC WITH DIFF 2021-01-24 10:06:00 Syed [facility] POCT GLUCOSE 2021-01-24 01:55:00 Escobar Cabrera [facility] (AUTOMATED) [facility] Branch POCT GLUCOSE 2021-01-23 23:33:00 Escobar Cabrera [facility] (AUTOMATED) [facility] POCT GLUCOSE 2021-01-23 18:31:00 Escobar Cabrera [facility] (AUTOMATED) Medical Branch PHOSPHORUS 2021-01-23 09:22:00 Jenaro [facility] MAGNESIUM 2021-01-23 09:22:00 Jenaro [facility] BASIC METABOLIC PANEL 2021-01-23 09:22:00 Silvino Eason [facility] (NA, K, CL, CO2, Medical Branch GLUCOSE, BUN, CREATININE, CA) CBC WITHOUT DIFF 2021-01-23 09:22:00 Jenaro [facility] XR CHEST 1 VW 2021-01-23 08:15:00 Jenaro [facility] CBC WITHOUT DIFF 2021-01-23 01:47:00 Jenaro [facility] POTASSIUM SERUM 2021-01-22 22:00:00 Ольга [facility] PREPARE PACKED RBC 2021-01-22 17:04:53 Mil Yousif [facility] HB ECG ROUTINE & RHYTHM 2021-01-22 09:11:17 Deni Dale [facility] PHOSPHORUS 2021-01-22 09:04:00 Anatoliy Cardona [facility] MAGNESIUM 2021-01-22 09:04:00 Brendan [facility] BASIC METABOLIC PANEL 2021-01-22 09:04:00 Anatoliy Cardona [facility] (NA, K, CL, CO2, Medical Branch GLUCOSE, BUN, CREATININE, CA) CBC WITH DIFF 2021-01-22 09:04:00 Brendan [facility] XR CHEST 1 VW 2021-01-22 07:57:00 Brendan [facility] HB ECG ROUTINE & RHYTHM 2021-01-21 12:26:52 Yovana Gaston [facility] ABG+COOX+NA+K+GLU+CA2+ 2021-01-21 10:09:00 Benji Olvera [facility] PHOSPHORUS 2021-01-21 10:08:00 [facility] 2021-01-21 10:08:00 [facility] BASIC METABOLIC PANEL 2021-01-21 10:08:00 Benji Olvera, [facility] (NA, K, CL, CO2, [facility] GLUCOSE, BUN, CREATININE, CA) CBC WITH DIFF 2021-01-21 10:08:00 [facility] PROT[facility] / INR 2021-01-21 10:08:00 Benji Olvera, [facility] XR CHEST 1 VW 2021-01-21 07:24:00 [facility] CBC WITHOUT DIFF 2021-01-21 03:09:00 Red [facility] CBC WITHOUT DIFF 2021-01-21 01:25:00 Red [facility] ABG+COOX+NA+K+GLU+CA2+ 2021-01-21 01:25:00 Benji Olvera, [facility] XR CHEST 1 2021-01-20 22:55:00 Red Zohaib [facility] XR ABDOMEN 1 VW 2021-01-20 22:49:00 [facility] CHEST 1 2021-01-20 22:49:00 [facility] ABG+COOX+NA+K+GLU+CA2+ 2021-01-20 22:44:00 Benji Olvera, [facility] PHOSPHORUS 2021-01-20 22:42:00 [facility] MAGNESIUM 2021-01-20 22:42:00 [facility] BASIC METABOLIC PANEL 2021-01-20 22:42:00 Benji Olvera [facility] (NA, K, CL, CO2, [facility] GLUCOSE, BUN, CREATININE, CA) CBC WITH DIFF 2021-01-20 22:42:00 Benji Olvera [facility] MRSA / MSSA SCREEN BY 2021-01-20 22:42:00 Benji Olvera [facility] JOSE, AMELIA [facility] TRANSFUSE PLATELETS 2021-01-20 22:18:54 Samples, [facility] TRANSFUSE PLATELETS 2021-01-20 22:00:18 Samples, [facility] PREPARE PLATELETS 2021-01-20 21:54:03 Samples, [facility] CBC WITH DIFF 2021-01-20 21:47:17 Escobar Cabrera [facility] PROTHROMBIN TIME / INR 2021-01-20 21:47:17 Escobar Cabrera [facility] ACTIVATED PARTIAL 2021-01-20 21:47:17 Escobar Cabrera [facility] FIBRINOGEN 2021-01-20 21:47:17 Escobar Cabrera [facility] ABG+COOX+NA+K+GLU+CA2+ 2021-01-20 21:24:00 Escobar Cabrera [facility] TRANSFUSE PACKED RBC 2021-01-20 21:12:39 Samples, [facility] TRANSFUSE PACKED RBC 2021-01-20 21:09:33 Samples, [facility] ACUTE CARE 2021-01-20 21:04:00 Escobar Cabrrea [facility] POCT ACT HIGH RANGE 2021-01-20 21:01:00 Escobar Cabrera [facility] TRANSFUSE PACKED RBC 2021-01-20 20:25:19 Samples, [facility] ACUTE CARE 2021-01-20 20:21:00 Escobar Cabrera [facility] TRANSFUSE PACKED RBC 2021-01-20 20:06:11 Samples, [facility] ACUTE CARE 2021-01-20 19:25:00 Escobar Cabrera [facility] ARTERIAL [facility] ACUTE CARE 2021-01-20 18:59:00 Escobar Cabrera [facility] ARTERIAL [facility] POCT ACT HIGH RANGE 2021-01-20 18:52:00 Escobar Cabrera [facility] PREPARE PACKED RBC 2021-01-20 18:06:15 Samples, [facility] ACUTE CARE 2021-01-20 17:29:00 Escobar Cabrera [facility] ARTERIAL [facility] PREPARE PACKED RBC 2021-01-20 17:16:28 Juliana Vinson [facility] CORONARY ARTERY BYPASS 2021-01-20 16:32:00 Escobar Cabrera [facility] GRAFT [facility] ENDOSCOPIC VEIN HARVEST 2021-01-20 16:32:00 Escobar Cabrera [facility] CBC WITH DIFF 2021-01-20 13:27:00 Juliana Vinson [facility] ABORH CONFIRMATION 2021-01-20 13:27:00 Escobar Cabrera [facility] HB ABO GROUPING 2021-01-20 12:20:00 Juliana Vinson [facility] BASIC METABOLIC PANEL 2021-01-20 12:17:00 Juliana Vinson [facility] (NA, K, CL, CO2, Medical Branch GLUCOSE, BUN, CREATININE, CA) PROTHROMBIN TIME / INR 2021-01-20 12:17:00 Juliana Vinson [facility] URINALYSIS 2021-01-20 12:17:00 Juliana Vinson [facility] HB ECG ROUTINE & RHYTHM 2021-01-20 11:40:07 [facility] Planned Activity Planned Date Details Comments Source Future Scheduled 2022-01-20 Depression screening Uni versity of Test 00:00:00 (procedure) [code = [place] Me dical 153171287] Branch Future Scheduled 2003 Medicare Annual Universi ty of Test 00:00:00 Wellness [facility] [place] [facility] (procedure) [code = Branch 842322993907189] Future Scheduled 2003 PNEUMOCOCCAL University of Test 00:00:00 VACCINES 65+ (1 of 1 [facility] edical - PPSV23) [code = Branch PNEUMOCOCCAL VACCINES 65+ (1 of 1 - PPSV23)] Future Scheduled 1988 Zoster Recombinant Unive rsity of Test 00:00:00 Vaccine (SHINGRIX) [place] [facility] ical (1 of 2) [code = Branch Zoster Recombinant Vaccine (SHINGRIX) (1 of 2)] Future Scheduled 1957 DTaP,Tdap,and Td Univers ity of Test 00:00:00 Vaccines (1 - Tdap) [place] Me dical [code = Branch DTaP,Tdap,and Td Vaccines (1 - Tdap)] Future Scheduled ABG+COOX+NA+K+GLU+CA EVERY 4 HOURS Un iversity of Test 2+ (While Intubated) (START TIME [facility] edical [code = 04574] ADJUSTABLE) for Branch 24 Hours starting 01/20/2021 until 01/21/2021, 3 completed Encounters Start End Encounter Admission Attending Care Care Encounter Source Date/Time Date/Time Type Type Clinicians Facility Department ID 2021-02-24 2021-02-24 Transition Karthikeyan Fierro [id number] 00:00:00 00:00:00 of Care Kade Marshall [id number] [place] [id number] [id number] 2021-02-23 2021-02-23 Urgent Provider, [facility] [id number] 15:56:41 16:41:19 Care [facility] [id number] Care [place] [id number] Professio [phone] nal [address] 2021-02-20 2021-02-21 Emergency Kassidy Del Toro [facility] [id number] 16:49:00 15:19:00 Catracho Husain [id number] [place] 4.2.7.2.686 [place] [id number] [facility] 2021-02-11 2021-02-11 Office YNES Cabrera [id number] 12:54:32 13:57:50 Visit [facility] [id number] [id number] Results Test Description Test Time Test Comments Results Result Comments Source POCT GLUCOSE (AUTOMATED) 2021-01-28 13:37:42 Test Item Value Reference Range Interpretation Comme nts POCT GLU (test code = 9070203363) 124 mg/dL 70-110 H Notified Provider Lab Interpretation (test code = 01202-0) Abnormal [facility] GLUCOSE (AUTOMATED)2021-01-28 01:38:13 Test Item Value Reference Range Interpretation Comments POCT GLU (test code = 4502761936) 130 mg/dL 70-110 H Lab Interpretation (test code = Abnormal 86198-1) [facility] GLUCOSE (AUTOMATED)2021-01-27 23:28:05 Test Item Value Reference Range Interpretation Comments POCT GLU (test code = 95 mg/dL 70-110 Notifi ed Provider [id number]) Lab Interpretation (test Normal code = 03924-0) [facility] GLUCOSE (AUTOMATED)2021-01-27 18:51:48 Test Item Value Reference Range Interpretation Comments POCT GLU (test code = 3363443308) 95 mg/dL 70-110 Lab Interpretation (test code = Normal 48933-8) [facility] METABOLIC PANEL (NA, K, CL, CO2, GLUCOSE, BUN, CREATININE, CA)2021-01-27 15:12:56 Test Item Value Reference Range Interpretation Comments NA (test code = 138 mmol/L 135-145 9721370648) K (test code = 4.0 mmol/L 3.5-5.0 2702466591) CL (test code = 103 mmol/L 98-108 5942099857) CO2 TOTAL (test code = 29 mmol/L 23-31 9968346255) AGAP (test code = 6 2-16 0014973311) BUN (test code = 13 mg/dL 7-23 8448792706) GLUCOSE (test code = 135 mg/dL 70-110 H 0662104322) CREATININE (test code = 0.55 mg/dL 0.60-1.25 L 7639608837) CALCIUM (test code = 8.2 mg/dL 8.6-10.6 L 5493149676) eGFR (test code = 142.6 mL/min/1.73m2 6747350872) CARLIE (test code = CARLIE) Association of Glomerular Filtration Rate (GFR) and Staging of Kidney Disease* + --+ --+ ------+| GFR (mL/min/1.73 m2) | With Kidney Damage | Without Kidney Damage+ --------+ --------+ +| >90 | Stage one | Normal + --+ --+ ------+| 60-89 | Stage two | Decreased GFR + --+ --+ ------+| 30-59 | Stage three | Stage three + --+ --+ ------+| 15-29 | Stage four | Stage four + --+ --+ ------+| <15 (or dialysis) | Stage five | Stage five + --+ --+ ------+ *Each stage assumes the associated GFR level has been in effect for at least three months. Stages 1 to 5, with or without kidney disease, indicate chronic kidney disease. Notes: Determination of stages one and two (with eGFR >59mL/min/1.73 m2) requires estimation of kidney damage for at least three months as defined by structural or functional abnormalities of the kidney, manifested by either:Pathological abnormalities or Markers of kidney damage (including abnormalities in the composition of the blood or urine or abnormalities in imaging tests). Lab Interpretation Abnormal (test code = 13640-4) [facility]:12[facility]56 Test Item Value Reference Range Interpretation Comments MAGNESIUM (test code = 1391338541) 2.2 mg/dL 1.7-2.4 Lab Interpretation (test code = Normal 82140-1) [facility] 15:12:56 Test Item Value Reference Range Interpretation Comments PHOSPHORUS (test code = 8503690757) 2.2 mg/dL 2.5-5.0 L Lab Interpretation (test code = Abnormal 53068-4) [facility]21-01-27 14:39:58 Test Item Value Reference Range Interpretation Comments POCT GLU (test code = 140 mg/dL 70-110 H Notifi ed Provider [id number]) Lab Interpretation (test Abnormal code = 31635-7) [facility]OOX+NA+K+GLU+CA2+2021-01-27 04:22:04 Test Item Value Reference Range Interpretation Comments PH (test code = 2) 7.40 7.35-7.45 PCO2 (test code = 30 See_Comment L [Automat ed message] 9846171299) The system [employer] generated this result transmit thuy reference range : 35 - 45 mmHg. The reference range was not used to interpret this result as normal/abnormal . PO2 (test code = 332 See_Comment H [Automated message] 6572862245) The system [employer] generated this result transmit thuy reference range : 80 - 100 mmHg. The reference range was not used to interpret this result as normal/abnormal . HCO3 (test code = 18 See_Comment L [Automate d message] 3182379768) The system [employer] generated this result transmit thuy reference range : 22 - 26 mEq/L. The reference range was not used to interpret this result as normal/abnormal . BE (test code = -5.8 See_Comment L [Automated message] 6326640510) The system [employer] generated this result transmit thuy reference range : -3.0 - 3.0 mEq/ L. The reference r jaswinder was not used to interpret this result as normal/abnormal . THB (test code = 8.1 g/dL 13.5-18.0 LL 4890178690) %O2HB (test code = 99.5 % 94.0-99.0 H 8092165315) %COHB ART (test code = 0.0 % 0.0-1.5 3581197829) %METHB ART (test code = 0.1 % 0.4-1.5 L 6311365163) VOL%O2 ART (test code = 12.2 % 15.0-23.0 L 5412418405) NA (test code = 133 mmol/L 135-145 L 6451239621) K+ (test code = 4.4 mmol/L 3.5-5.0 1638859829) AC CA IONZ (test code = 5.10 mg/dL 4.50-5.30 8663986921) GLUCOSE (test code = 151 mg/dL 70-110 H 4002442212) Lab Interpretation Abnormal (test code = 82153-2) [facility] GLUCOSE (AUTOMATED)2021-01-27 01:12:43 Test Item Value Reference Range Interpretation Comments POCT GLU (test code = 4112338336) 133 mg/dL 70-110 H Lab Interpretation (test code = Abnormal 34782-8) [facility] 10:02:04 Test Item Value Reference Range Interpretation Comments MAGNESIUM (test code = 9295533080) 2.3 mg/dL 1.7-2.4 Lab Interpretation (test code = Normal 08221-8) [facility] 10:02:04 Test Item Value Reference Range Interpretation Comments PHOSPHORUS (test code = 2551916469) 1.3 mg/dL 2.5-5.0 L Lab Interpretation (test code = Abnormal 95225-2) [facility] (NA, K, CL, CO2, GLUCOSE, BUN, CREATININE, CA)2021-01-26 10:02:03 Test Item Value Reference Range Interpretation Comments NA (test code = 137 mmol/L 135-145 6392870647) K (test code = 3.8 mmol/L 3.5-5.0 9005195824) CL (test code = 102 mmol/L 98-108 4019256907) CO2 TOTAL (test code = 30 mmol/L 23-31 2329039948) AGAP (test code = 5 2-16 3040557691) BUN (test code = 16 mg/dL 7-23 6966178930) GLUCOSE (test code = 98 mg/dL 70-110 5503956164) CREATININE (test code = 0.51 mg/dL 0.60-1.25 L 6170427466) CALCIUM (test code = 7.9 mg/dL 8.6-10.6 L 5217689681) eGFR (test code = 155.6 mL/min/1.73m2 2428308685) CARLIE (test code = CARLIE) Association of Glomerular Filtration Rate (GFR) and Staging of Kidney Disease* + --+ --+ ------+| GFR (mL/min/1.73 m2) | With Kidney Damage | Without Kidney Damage+ --------+ --------+ +| >90 | Stage one | Normal + --+ --+ ------+| 60-89 | Stage two | Decreased GFR + --+ --+ ------+| 30-59 | Stage three | Stage three + --+ --+ ------+| 15-29 | Stage four | Stage four + --+ --+ ------+| <15 (or dialysis) | Stage five | Stage five + --+ --+ ------+ *Each stage assumes the associated GFR level has been in effect for at least three months. Stages 1 to 5, with or without kidney disease, indicate chronic kidney disease. Notes: Determination of stages one and two (with eGFR >59mL/min/1.73 m2) requires estimation of kidney damage for at least three months as defined by structural or functional abnormalities of the kidney, manifested by either:Pathological abnormalities or Markers of kidney damage (including abnormalities in the composition of the blood or urine or abnormalities in imaging tests). Lab Interpretation Abnormal (test code = 55911-2) [facility] acute hospital WITH [id number] 09:33:39 Test Item Value Reference Range Interpretation Comments WBC (test code = 6.26 See_Comment [Automated 6690-2) message] The sy stem which generated this result transmitted reference range : 4.20 - 10.70 10*3/?L. The reference range was not used to interpret this result as normal/abnormal . RBC (test code = 2.70 See_Comment L [Automated 789-8) message] The sy stem which generated this result transmitted reference range : 4.26 - 5.52 10*6/?L. The reference range was not used to interpret this result as normal/abnormal . HGB (test code = 8.1 g/dL 12.2-16.4 L 718-7) HCT (test code = 25.7 % 38.4-49.3 L 4544-3) MCV (test code = 95.2 fL 81.7-95.6 787-2) MCH (test code = 30.0 pg 26.1-32.7 785-6) MCHC (test code = 31.5 g/dL 31.2-35.0 786-4) RDW-SD (test code = 53.0 fL 38.5-51.6 H 23529-3) RDW-CV (test code = 15.0 % 12.1-15.4 788-0) PLT (test code = 196 See_Comment [Automated 777-3) message] The sy stem which generated this result transmitted reference range : 150 - 328 10*3/ ?L. The reference r jaswinder was not used to interpret this result as normal/abnormal . MPV (test code = 10.1 fL 9.8-13.0 32576-3) NRBC/100 WBC (test 0.0 See_Comment [Automat ed code = 4120827187) message] The system which generated this result transmitted reference range : 0.0 - 10.0 /100 WBCs. The refer ence range was not u sed to interpret th is result as normal/abnormal . NRBC x10^3 (test code <0.01 See_Comment [Auto mated = 4001596833) message] The s ystem which generated this result transmitted reference range : 10*3/?L. The reference range was not used to interpret this result as normal/abnormal . GRAN MAT (NEUT) % 70.2 % (test code = 770-8) IMM GRAN % (test code 0.60 % = 2939681983) LYMPH % (test code = 17.7 % 736-9) MONO % (test code = 9.6 % 5905-5) EOS % (test code = 1.4 % 713-8) BASO % (test code = 0.5 % 706-2) GRAN MAT x10^3(ANC) 4.39 10*3/uL 1.99-6.95 (test code = 5289336772) IMM GRAN x10^3 (test 0.04 10*3/uL 0.00-0.06 code = 3470949731) LYMPH x10^3 (test code 1.11 10*3/uL 1.09-3.23 = 731-0) MONO x10^3 (test code 0.60 10*3/uL 0.36-1.02 = 742-7) EOS x10^3 (test code = 0.09 10*3/uL 0.06-0.53 711-2) BASO x10^3 (test code 0.03 10*3/uL 0.01-0.09 = 704-7) Lab Interpretation Abnormal (test code = 38120-4) [facility] MET[facility]OL[facility] (NA, K, CL, CO2, GLUCOSE, BUN, CREATININE, CA)2021-01-26 06:12:45 Test Item Value Reference Range Interpretation Comments NA (test code = 137 mmol/L 135-145 0335182815) K (test code = 4.1 mmol/L 3.5-5.0 8354224897) CL (test code = 102 mmol/L 98-108 9003229545) CO2 TOTAL (test code = 31 mmol/L 23- 4801950021) AGAP (test code = 4 2-16 6250418986) BUN (test code = 17 mg/dL 7- 2525825123) GLUCOSE (test code = 140 mg/dL 70-110 H 7496653134) CREATININE (test code = 0.61 mg/dL 0.60-1.25 5317513039) CALCIUM (test code = 8.3 mg/dL 8.6-10.6 L 3498946394) eGFR (test code = 126.6 mL/min/1.73m2 9354369623) CARLIE (test code = CARLIE) Association of Glomerular Filtration Rate (GFR) and Staging of Kidney Disease* + --+ --+ ------+| GFR (mL/min/1.73 m2) | With Kidney Damage | Without Kidney Damage+ --------+ --------+ +| >90 | Stage one | Normal + --+ --+ ------+| 60-89 | Stage two | Decreased GFR + --+ --+ ------+| 30-59 | Stage three | Stage three + --+ --+ ------+| 15-29 | Stage four | Stage four + --+ --+ ------+| <15 (or dialysis) | Stage five | Stage five + --+ --+ ------+ *Each stage assumes the associated GFR level has been in effect for at least three months. Stages 1 to 5, with or without kidney disease, indicate chronic kidney disease. Notes: Determination of stages one and two (with eGFR >59mL/min/1.73 m2) requires estimation of kidney damage for at least three months as defined by structural or functional abnormalities of the kidney, manifested by either:Pathological abnormalities or Markers of kidney damage (including abnormalities in the composition of the blood or urine or abnormalities in imaging tests). Lab Interpretation Abnormal (test code = 51769-2) General acute hospital WITH [id number] 05:39:20 Test Item Value Reference Range Interpretation Comments WBC (test code = 6.64 See_Comment [Automated 1781-2) message] The sy stem which generated this result transmitted reference range : 4.20 - 10.70 10*3/?L. The reference range was not used to interpret this result as normal/abnormal . RBC (test code = 2.85 See_Comment L [Automated 270-8) message] The sy stem which generated this result transmitted reference range : 4.26 - 5.52 10*6/?L. The reference range was not used to interpret this result as normal/abnormal . HGB (test code = 8.6 g/dL 12.2-16.4 L 718-7) HCT (test code = 26.9 % 38.4-49.3 L 4544-3) MCV (test code = 94.4 fL 81.7-95.6 787-2) MCH (test code = 30.2 pg 26.1-32.7 785-6) MCHC (test code = 32.0 g/dL 31.2-35.0 786-4) RDW-SD (test code = 52.5 fL 38.5-51.6 H 97936-0) RDW-CV (test code = 15.1 % 12.1-15.4 788-0) PLT (test code = 223 See_Comment [Automated 777-3) message] The sy stem which generated this result transmitted reference range : 150 - 328 10*3/ ?L. The reference r jaswinder was not used to interpret this result as normal/abnormal . MPV (test code = 9.8 fL 9.8-13.0 94968-1) NRBC/100 WBC (test 0.0 See_Comment [Automat ed code = 2683532378) message] The system which generated this result transmitted reference range : 0.0 - 10.0 /100 WBCs. The refer ence range was not u sed to interpret th is result as normal/abnormal . NRBC x10^3 (test code <0.01 See_Comment [Auto mated = 6158355588) message] The s ystem which generated this result transmitted reference range : 10*3/?L. The reference range was not used to interpret this result as normal/abnormal . GRAN MAT (NEUT) % 74.6 % (test code = 770-8) IMM GRAN % (test code 0.60 % = 1502859801) LYMPH % (test code = 15.2 % 736-9) MONO % (test code = 8.3 % 5905-5) EOS % (test code = 0.8 % 713-8) BASO % (test code = 0.5 % 706-2) GRAN MAT x10^3(ANC) 4.96 10*3/uL 1.99-6.95 (test code = 6238437984) IMM GRAN x10^3 (test 0.04 10*3/uL 0.00-0.06 code = 7599639890) LYMPH x10^3 (test code 1.01 10*3/uL 1.09-3.23 L = 731-0) MONO x10^3 (test code 0.55 10*3/uL 0.36-1.02 = 742-7) EOS x10^3 (test code = 0.05 10*3/uL 0.06-0.53 L 711-2) BASO x10^3 (test code 0.03 10*3/uL 0.01-0.09 = 704-7) Lab Interpretation Abnormal (test code = 82198-3) [facility] GLUCOSE (AUTOMATED)2021-01-26 01:14:28 Test Item Value Reference Range Interpretation Comments POCT GLU (test code = 2419806633) 131 mg/dL 70-110 H Lab Interpretation (test code = Abnormal 11437-4) [facility] GLUCOSE (AUTOMATED)2021-01-25 21:53:13 Test Item Value Reference Range Interpretation Comments POCT GLU (test code = 8891660744) 141 mg/dL 70-110 H Lab Interpretation (test code = Abnormal 31129-9) [facility] GLUCOSE (AUTOMATED)2021-01-25 14:01:24 Test Item Value Reference Range Interpretation Comments POCT GLU (test code = 6063010064) 104 mg/dL 70-110 Lab Interpretation (test code = Normal 01194-2) [facility] [id number] 13:48:12[facility], Radiant Results Inft User - 01/25/2021 8:49 AM CDTEXAM: XR CHEST 1 VWHISTORY: chest tube COMPARISON: None.FINDINGS:The chest tubes draining the pleural space on both sides are unchanged inposition. Similarly unchanged is the vascular access catheter introduced onthe right, the tip of which is at the atriocaval junction. The heart andgreat vessels are normal, and the lungs are well expanded andclear. Thevascular congestion and basilar edema noted previously have resolved. [facility] 2 Views - Upright ( PA, LAT) on POD # 3 2021-01-25 13:47:02 Interval removal of right central venous catheter. Small left pleural effusion. Preliminary Report Dictated by Resident: Adam Armstrong MD., have reviewed this study and agree withthe above report.[facility], Radiant Results Inft User - 01/25/2021 8:48 AM CDTEXAM: XR CHEST 2 VWCOMPARISON: 01/23/2021HISTORY: s/p open heart surgery FINDINGS:Devices: Interval removal of right subclavian venous catheter. Bilateralchest tubes are unchanged.Lungs: The lungs are clear. Small left pleural effusion is noted. Nopneumothorax is identified.Heart/Mediastinum: The cardiomediastinal silhouette is normal in size.Surgical clips are seen.Bones: No acute osseous abnormality is seen. Median sternotomywires arepresent.IMPRESSIONInterval removal of right central venous catheter.Small left pleural effusion.Preliminary Report Dictated by Resident: Adam Dixon MD., have reviewed this study and agree withthe above report.[facility] (NA, K, CL, CO2, GLUCOSE, BUN, CREATININE, CA)2021-01-25 09:00:49 Test Item Value Reference Range Interpretation Comments NA (test code = 138 mmol/L 135-145 2862030134) K (test code = 4.1 mmol/L 3.5-5.0 4804058371) CL (test code = 105 mmol/L 98-108 0606152541) CO2 TOTAL (test code = 31 mmol/L 23-31 5130355293) AGAP (test code = 2 2-16 8634912620) BUN (test code = 17 mg/dL 7-23 4385797383) GLUCOSE (test code = 92 mg/dL 70-110 1690761204) CREATININE (test code = 0.47 mg/dL 0.60-1.25 L 4975127953) CALCIUM (test code = 8.0 mg/dL 8.6-10.6 L 1664286782) eGFR (test code = 171.0 mL/min/1.73m2 9673334257) CARLIE (test code = CARLIE) Association of Glomerular Filtration Rate (GFR) and Staging of Kidney Disease* + --+ --+ ------+| GFR (mL/min/1.73 m2) | With Kidney Damage | Without Kidney Damage+ --------+ --------+ +| >90 | Stage one | Normal + --+ --+ ------+| 60-89 | Stage two | Decreased GFR + --+ --+ ------+| 30-59 | Stage three | Stage three + --+ --+ ------+| 15-29 | Stage four | Stage four + --+ --+ ------+| <15 (or dialysis) | Stage five | Stage five + --+ --+ ------+ *Each stage assumes the associated GFR level has been in effect for at least three months. Stages 1 to 5, with or without kidney disease, indicate chronic kidney disease. Notes: Determination of stages one and two (with eGFR >59mL/min/1.73 m2) requires estimation of kidney damage for at least three months as defined by structural or functional abnormalities of the kidney, manifested by either:Pathological abnormalities or Markers of kidney damage (including abnormalities in the composition of the blood or urine or abnormalities in imaging tests). Lab Interpretation Abnormal (test code = 82912-0) [facility] 09:00:49 Test Item Value Reference Range Interpretation Comments MAGNESIUM (test code = 0625002207) 2.2 mg/dL 1.7-2.4 Lab Interpretation (test code = Normal 46655-7) [facility] GLUCOSE (AUTOMATED)2021-01-24 17:43:33 Test Item Value Reference Range Interpretation Comments POCT GLU (test code = 119 mg/dL 70-110 H Notifi ed Provider [id number]) Lab Interpretation (test Abnormal code = 05878-7) [facility] 17:00:33 Test Item Value Reference Range Interpretation Comments DIGOXIN (test code = 2.2 ng/mL 0.8-1.6 H 7352501323) CARLIE (test code = CARLIE) Arrythmias: 1.5 - 2.0 ng/mLToxic Range: Greater than or equal to 2.4 ng/mL Lab Interpretation (test Abnormal code = 70225-1) [facility] GLUCOSE (AUTOMATED)2021-01-24 13:53:55 Test Item Value Reference Range Interpretation Comments POCT GLU (test code = 94 mg/dL 70-110 Notifi ed Provider [id number]) Lab Interpretation (test Normal code = 17708-7) [facility] (NA, K, CL, CO2, GLUCOSE, BUN, CREATININE, CA) on POD # 10:55:15 Test Item Value Reference Range Interpretation Comments NA (test code = 139 mmol/L 135-145 6932916906) K (test code = 4.3 mmol/L 3.5-5.0 8355516689) CL (test code = 104 mmol/L 98-108 3073492432) CO2 TOTAL (test code = 32 mmol/L 23-31 H 6899641341) AGAP (test code = 3 2-16 2308218713) BUN (test code = 15 mg/dL 7-23 6779153134) GLUCOSE (test code = 96 mg/dL 70-110 7418688584) CREATININE (test code = 0.59 mg/dL 0.60-1.25 L 1623345161) CALCIUM (test code = 8.2 mg/dL 8.6-10.6 L 1163802955) eGFR (test code = 131.5 mL/min/1.73m2 9148432125) CARLIE (test code = CARLIE) Association of Glomerular Filtration Rate (GFR) and Staging of Kidney Disease* + --+ --+ ------+| GFR (mL/min/1.73 m2) | With Kidney Damage | Without Kidney Damage+ --------+ --------+ +| >90 | Stage one | Normal + --+ --+ ------+| 60-89 | Stage two | Decreased GFR + --+ --+ ------+| 30-59 | Stage three | Stage three + --+ --+ ------+| 15-29 | Stage four | Stage four + --+ --+ ------+| <15 (or dialysis) | Stage five | Stage five + --+ --+ ------+ *Each stage assumes the associated GFR level has been in effect for at least three months. Stages 1 to 5, with or without kidney disease, indicate chronic kidney disease. Notes: Determination of stages one and two (with eGFR >59mL/min/1.73 m2) requires estimation of kidney damage for at least three months as defined by structural or functional abnormalities of the kidney, manifested by either:Pathological abnormalities or Markers of kidney damage (including abnormalities in the composition of the blood or urine or abnormalities in imaging tests). Lab Interpretation Abnormal (test code = 56630-1) [facility] with Differential on POD # 10:25:49 Test Item Value Reference Range Interpretation Comments WBC (test code = 6.96 See_Comment [Automated 2590-2) message] The sy stem which generated this result transmitted reference range : 4.20 - 10.70 10*3/?L. The reference range was not used to interpret this result as normal/abnormal . RBC (test code = 2.71 See_Comment L [Automated 789-8) message] The sy stem which generated this result transmitted reference range : 4.26 - 5.52 10*6/?L. The reference range was not used to interpret this result as normal/abnormal . HGB (test code = 8.3 g/dL 12.2-16.4 L 718-7) HCT (test code = 26.0 % 38.4-49.3 L 4544-3) MCV (test code = 95.9 fL 81.7-95.6 H 787-2) MCH (test code = 30.6 pg 26.1-32.7 785-6) MCHC (test code = 31.9 g/dL 31.2-35.0 786-4) RDW-SD (test code = 54.5 fL 38.5-51.6 H 29419-0) RDW-CV (test code = 15.4 % 12.1-15.4 788-0) PLT (test code = 180 See_Comment [Automated 777-3) message] The sy stem which generated this result transmitted reference range : 150 - 328 10*3/ ?L. The reference r jaswinder was not used to interpret this result as normal/abnormal . MPV (test code = 10.2 fL 9.8-13.0 84673-7) NRBC/100 WBC (test 0.0 See_Comment [Automat ed code = 2928821228) message] The system which generated this result transmitted reference range : 0.0 - 10.0 /100 WBCs. The refer ence range was not u sed to interpret th is result as normal/abnormal . NRBC x10^3 (test code <0.01 See_Comment [Auto mated = 9031058005) message] The s ystem which generated this result transmitted reference range : 10*3/?L. The reference range was not used to interpret this result as normal/abnormal . GRAN MAT (NEUT) % 77.5 % (test code = 770-8) IMM GRAN % (test code 0.30 % = 9441374233) LYMPH % (test code = 11.1 % 736-9) MONO % (test code = 9.8 % 5905-5) EOS % (test code = 0.9 % 713-8) BASO % (test code = 0.4 % 706-2) GRAN MAT x10^3(ANC) 5.40 10*3/uL 1.99-6.95 (test code = 9159606384) IMM GRAN x10^3 (test <0.03 0.00-0.06 code = 3315082028) LYMPH x10^3 (test code 0.77 10*3/uL 1.09-3.23 L = 731-0) MONO x10^3 (test code 0.68 10*3/uL 0.36-1.02 = 742-7) EOS x10^3 (test code = 0.06 10*3/uL 0.06-0.53 711-2) BASO x10^3 (test code 0.03 10*3/uL 0.01-0.09 = 704-7) Lab Interpretation Abnormal (test code = 28405-0) [facility] GLUCOSE (AUTOMATED)2021-01-24 01:56:29 Test Item Value Reference Range Interpretation Comments POCT GLU (test code = 9691611445) 122 mg/dL 70-110 H Lab Interpretation (test code = Abnormal 91653-9) [facility] GLUCOSE (AUTOMATED)2021-01-23 23:34:50 Test Item Value Reference Range Interpretation Comments POCT GLU (test code = 114 mg/dL 70-110 H Notifi ed Provider [id number]) Lab Interpretation (test Abnormal code = 29931-1) [facility] GLUCOSE (AUTOMATED)2021-01-23 18:43:15 Test Item Value Reference Range Interpretation Comments POCT GLU (test code = 107 mg/dL 70-110 Notifi ed Provider [id number]) Lab Interpretation (test Normal code = 66035-9) [facility] METABOLIC PANEL (NA, K, CL, CO2, GLUCOSE, BUN, CREATININE, CA)2021-01-23 11:27:35 Test Item Value Reference Range Interpretation Comments NA (test code = 135 mmol/L 135-145 9717894737) K (test code = 4.4 mmol/L 3.5-5.0 3803513164) CL (test code = 103 mmol/L 98-108 6640515168) CO2 TOTAL (test code = 29 mmol/L 23-31 3730824094) AGAP (test code = 3 2-16 4781114623) BUN (test code = 14 mg/dL 7-23 1663341548) GLUCOSE (test code = 95 mg/dL 70-110 2605439904) CREATININE (test code = 0.53 mg/dL 0.60-1.25 L 4668830869) CALCIUM (test code = 8.0 mg/dL 8.6-10.6 L 0601521651) eGFR (test code = 148.8 mL/min/1.73m2 8695286862) CARLIE (test code = CARLIE) Association of Glomerular Filtration Rate (GFR) and Staging of Kidney Disease* + --+ --+ ------+| GFR (mL/min/1.73 m2) | With Kidney Damage | Without Kidney Damage+ --------+ --------+ +| >90 | Stage one | Normal + --+ --+ ------+| 60-89 | Stage two | Decreased GFR + --+ --+ ------+| 30-59 | Stage three | Stage three + --+ --+ ------+| 15-29 | Stage four | Stage four + --+ --+ ------+| <15 (or dialysis) | Stage five | Stage five + --+ --+ ------+ *Each stage assumes the associated GFR level has been in effect for at least three months. Stages 1 to 5, with or without kidney disease, indicate chronic kidney disease. Notes: Determination of stages one and two (with eGFR >59mL/min/1.73 m2) requires estimation of kidney damage for at least three months as defined by structural or functional abnormalities of the kidney, manifested by either:Pathological abnormalities or Markers of kidney damage (including abnormalities in the composition of the blood or urine or abnormalities in imaging tests). Lab Interpretation Abnormal (test code = 47051-3) [facility] 11:27:35 Test Item Value Reference Range Interpretation Comments MAGNESIUM (test code = 5415630974) 2.2 mg/dL 1.7-2.4 Lab Interpretation (test code = Normal 78913-6) [facility]2021[facility] 11:27:35 Test Item Value Reference Range Interpretation Comments PHOSPHORUS (test code = 3116061270) 1.8 mg/dL 2.5-5.0 L Lab Interpretation (test code = Abnormal 61162-0) [facility] acute hospital WITHOUT [id number] 10:54:12 Test Item Value Reference Range Interpretation Comments WBC (test code = 6690-2) 6.16 See_Comment [A utomated message] The system [employer] generated this result transmit thuy reference range : 4.20 - 10.70 10*3/?L. The reference range was not used to interpret this result as normal/abnormal . RBC (test code = 789-8) 2.68 See_Comment L [Au tomated message] The system [employer] generated this result transmit thuy reference range : 4.26 - 5.52 10* 6/?L. The reference r jaswinder was not used to interpret this result as normal/abnormal . HGB (test code = 718-7) 8.3 g/dL 12.2-16.4 L HCT (test code = 4544-3) 25.5 % 38.4-49.3 L MCH (test code = 785-6) 31.0 pg 26.1-32.7 MCV (test code = 787-2) 95.1 fL 81.7-95.6 MCHC (test code = 786-4) 32.5 g/dL 31.2-35.0 PLT (test code = 777-3) 146 See_Comment L [Au tomated message] The system [employer] generated this result transmit thuy reference range : 150 - 328 10*3/?L. The reference range was not used to interpret this result as normal/abnormal . MPV (test code = 10.7 fL 9.8-13.0 28564-3) RDW-CV (test code = 15.9 % 12.1-15.4 H 788-0) RDW-SD (test code = 55.1 fL 38.5-51.6 H 91151-8) NRBC x10^3 (test code = <0.01 See_Comment [Au tomated message] 0818592632) The system [employer] generated this result transmit thuy reference range : 10*3/?L. The reference range was not used to interpret this result as normal/abnormal . NRBC/100 WBC (test code 0.0 See_Comment [Au tomated message] = 7569243343) The system [facility] generated this result transmit thuy reference range : 0.0 - 10.0 /100 WBC s. The reference r jaswinder was not used to interpret this result as normal/abnormal . IPF % (test code = 6665581898) Lab Interpretation (test Abnormal code = 68139-5) [facility] acute hospital WITHOUT [id number] 02:02:35 Test Item Value Reference Range Interpretation Comments WBC (test code = 6690-2) 7.13 See_Comment [A utomated message] The system [employer] generated this result transmit thuy reference range : 4.20 - 10.70 10*3/?L. The reference range was not used to interpret this result as normal/abnormal . RBC (test code = 789-8) 2.80 See_Comment L [Au tomated message] The system [employer] generated this result transmit thuy reference range : 4.26 - 5.52 10* 6/?L. The reference r jaswinder was not used to interpret this result as normal/abnormal . HGB (test code = 718-7) 8.5 g/dL 12.2-16.4 L HCT (test code = 4544-3) 25.9 % 38.4-49.3 L MCH (test code = 785-6) 30.4 pg 26.1-32.7 MCV (test code = 787-2) 92.5 fL 81.7-95.6 MCHC (test code = 786-4) 32.8 g/dL 31.2-35.0 PLT (test code = 777-3) 164 See_Comment [Au tomated message] The system [employer] generated this result transmit thuy reference range : 150 - 328 10*3/?L. The reference range was not used to interpret this result as normal/abnormal . MPV (test code = 9.9 fL 9.8-13.0 17978-1) RDW-CV (test code = 16.3 % 12.1-15.4 H 788-0) RDW-SD (test code = 55.2 fL 38.5-51.6 H 75421-3) NRBC x10^3 (test code = <0.01 See_Comment [Au tomated message] 5516739600) The system [employer] generated this result transmit thuy reference range : 10*3/?L. The reference range was not used to interpret this result as normal/abnormal . NRBC/100 WBC (test code 0.0 See_Comment [Au tomated message] = 1028652374) The system [employer] generated this result transmit thuy reference range : 0.0 - 10.0 /100 WBC s. The reference r jaswinder was not used to interpret this result as normal/abnormal . IPF % (test code = 6411967515) Lab Interpretation (test Abnormal code = 76018-4) [facility]OT[facility] [id number] 22:27:44 Test Item Value Reference Range Interpretation Comments K (test code = 1390883687) 3.6 mmol/L 3.5-5.0 Lab Interpretation (test code = Normal 01337-2) [facility] Hospital[facility] Packed RBC (in units), 1 Units 2021-01-22 17:04:53 Test Item Value Reference Range Interpretation Comments Cross Match Result Compatible (test code = 4409) ISBT Blood Type Code 6200 (test code = 043783) Unit Blood Type (test A Pos code = 4410) Unit Number (test [id number] code = 4411) Blood Expiration Date & Time (test code = 542375) Status Information Issued (test code = 4412) Product Red Blood Cells Identification (test code = 4413) Product Code (test L6260L11 Performed at [facility] code = 4414) Laboratory Services - [facility] Blood [address] [place] [address]Gtdq Free: [phone] A No. [id number] [facility] 1 [id number] 13:45:17[facility], Radiant Results Inft User - 01/22/2021 8:46 AM CDTEXAM: XR CHEST 1 VWHISTORY: s/p CABG COMPARISON: None.FINDINGS:The heart and great vessels are normal except for a tortuous and prominentarteriosclerotic aorta. Chest tubes are unchanged on both sides and amediastinal drain is present in the midline. The [place]-Dena catheter wasremoved. The tip of the right IJ line is deep in the superior vena cava.Mild basilar pulmonary congestion is present in the lung bases and a smallpleural effusion blunts the left costophrenic angle. The lungs are clearotherwise. General acute hospital WITH [id number] 10:02:06 Test Item Value Reference Range Interpretation Comments WBC (test code = 7.30 See_Comment [Automated 6690-2) message] The sy stem which generated this result transmitted reference range : 4.20 - 10.70 10*3/?L. The reference range was not used to interpret this result as normal/abnormal . RBC (test code = 2.25 See_Comment L [Automated 789-8) message] The sy stem which generated this result transmitted reference range : 4.26 - 5.52 10*6/?L. The reference range was not used to interpret this result as normal/abnormal . HGB (test code = 7.1 g/dL 12.2-16.4 L 718-7) HCT (test code = 21.2 % 38.4-49.3 L 4544-3) MCV (test code = 94.2 fL 81.7-95.6 787-2) MCH (test code = 31.6 pg 26.1-32.7 785-6) MCHC (test code = 33.5 g/dL 31.2-35.0 786-4) RDW-SD (test code = 53.7 fL 38.5-51.6 H 36269-4) RDW-CV (test code = 15.5 % 12.1-15.4 H 788-0) PLT (test code = 155 See_Comment [Automated 777-3) message] The sy stem which generated this result transmitted reference range : 150 - 328 10*3/ ?L. The reference r jaswinder was not used to interpret this result as normal/abnormal . MPV (test code = 10.6 fL 9.8-13.0 56063-6) NRBC/100 WBC (test 0.0 See_Comment [Automat ed code = 8907768292) message] The system which generated this result transmitted reference range : 0.0 - 10.0 /100 WBCs. The refer ence range was not u sed to interpret th is result as normal/abnormal . NRBC x10^3 (test code <0.01 See_Comment [Auto mated = 1798993584) message] The s ystem which generated this result transmitted reference range : 10*3/?L. The reference range was not used to interpret this result as normal/abnormal . GRAN MAT (NEUT) % 77.0 % (test code = 770-8) IMM GRAN % (test code 0.30 % = 5950304342) LYMPH % (test code = 9.7 % 736-9) MONO % (test code = 12.9 % 5905-5) EOS % (test code = 0.0 % 713-8) BASO % (test code = 0.1 % 706-2) GRAN MAT x10^3(ANC) 5.62 10*3/uL 1.99-6.95 (test code = 9528275503) IMM GRAN x10^3 (test <0.03 0.00-0.06 code = 8359457387) LYMPH x10^3 (test code 0.71 10*3/uL 1.09-3.23 L = 731-0) MONO x10^3 (test code 0.94 10*3/uL 0.36-1.02 = 742-7) EOS x10^3 (test code = <0.03 0.06-0.53 L 711-2) BASO x10^3 (test code <0.03 0.01-0.09 = 704-7) Lab Interpretation Abnormal (test code = 70258-5) [facility] 09:51:30 Test Item Value Reference Range Interpretation Comments MAGNESIUM (test code = 7578357566) 2.4 mg/dL 1.7-2.4 Lab Interpretation (test code = Normal 87640-0) [facility]2021-[facility]-30 09:51:30 Test Item Value Reference Range Interpretation Comments PHOSPHORUS (test code = 0813961775) 1.9 mg/dL 2.5-5.0 L Lab Interpretation (test code = Abnormal 56802-2) [facility] (NA, K, CL, CO2, GLUCOSE, BUN, CREATININE, CA)2021-01-22 09:51:29 Test Item Value Reference Range Interpretation Comments NA (test code = 135 mmol/L 135-145 7880621984) K (test code = 4.3 mmol/L 3.5-5.0 2976625021) CL (test code = 105 mmol/L 98-108 0662493164) CO2 TOTAL (test code = 28 mmol/L 23-31 6967637901) AGAP (test code = 2 2-16 6251027846) BUN (test code = 11 mg/dL 7-23 0735348179) GLUCOSE (test code = 105 mg/dL 70-110 9858981653) CREATININE (test code = 0.50 mg/dL 0.60-1.25 L 0140237548) CALCIUM (test code = 8.0 mg/dL 8.6-10.6 L 5562227075) eGFR (test code = 159.2 mL/min/1.73m2 6737610844) CARLIE (test code = CARLIE) Association of Glomerular Filtration Rate (GFR) and Staging of Kidney Disease* + --+ --+ ------+| GFR (mL/min/1.73 m2) | With Kidney Damage | Without Kidney Damage+ --------+ --------+ +| >90 | Stage one | Normal + --+ --+ ------+| 60-89 | Stage two | Decreased GFR + --+ --+ ------+| 30-59 | Stage three | Stage three + --+ --+ ------+| 15-29 | Stage four | Stage four + --+ --+ ------+| <15 (or dialysis) | Stage five | Stage five + --+ --+ ------+ *Each stage assumes the associated GFR level has been in effect for at least three months. Stages 1 to 5, with or without kidney disease, indicate chronic kidney disease. Notes: Determination of stages one and two (with eGFR >59mL/min/1.73 m2) requires estimation of kidney damage for at least three months as defined by structural or functional abnormalities of the kidney, manifested by either:Pathological abnormalities or Markers of kidney damage (including abnormalities in the composition of the blood or urine or abnormalities in imaging tests). Lab Interpretation Abnormal (test code = 48783-3) [facility] HospitalMRSA / MSSA Screen by Amelia [id number] 17:21:29 Test Item Value Reference Range Interpretation Comments MSSA Screen by Amelia GARCIA (test code Negative Negative = 82388-7) MRSA/MSSA Positive? (test code = No No [id number]) Lab Interpretation (test code = Normal 62721-9) [facility] HospitalAbdomen XRay 1 [id number] 16:22:12 The gastric tube is not visualized in the abdomen as it is turns superiorlyin the upper thoracic esophagus. Multiple additional lines and tubes as outlined above. Preliminary Report Dictated by Resident: Delmer Bhakta MD., have reviewed this study and agree with the abovereport.[facility], Radiant Results Inft User - 01/21/2021 11:23 AM CDTEXAM: XR ABDOMEN 1 VWHISTORY: OGT placement COMPARISON: noneFINDINGS:The gastric tube is not visualized on the abdominal radiograph. Theconcurrent chest radiograph was reviewed for further evaluation of thegastric tube which is seen taking a 180 degree turn in the mid thoracicesophagus before extending superiorly beyond the nbnbs-ly-ecci.The [place]-Dena catheter tip projects over the main pulmonary artery. Thecentral venous catheter tip projects over the superior cavoatrial junction.Bibasilar pleural drains identified with an additional drain projectingover the cardiac silhouette. The mediastinal drain extends superiorlybeyond the sduky-[id number]-zkfv.The upper abdominal bowel gas pattern demonstrates a nonobstructivepattern. No acute osseous abnormalities. Levocurvature of the lumbar spine.Multilevel spondylotic changes.IMPRESSIONThe gastric tube is not visualized in the abdomen as it is turns superiorlyin the upper thoracic esophagus.Multiple additional lines and tubes as outlined above.Preliminary Report Dictated by Resident: Delmer Villegas MD., have reviewed this study and agree with the abovereport.[facility] HospitalChest 1 [id number] 13:32:40 [facility], Radiant Results Inft User - 01/21/2021 8:33 AM CDTEXAM: XR CHEST 1 VWHISTORY: s/p open heart surgery COMPARISON: None.FINDINGS:The chest tubes on both sides, the mediastinal drain and the [place]-Ganzcatheter are unchanged in position. The endotracheal and nasogastric tubeswere removed. The tip ofthe right IJ line is deep in the superior venacava. The heart and great vessels are normal. The hilar vascular congestionis present on both sides but does not extend peripherally, suggesting thepossibility of pulmonary arterial hypertension. The lungs are well expandedand clear.[facility] HospitalXR CHEST 1 [id number] 13:16:03[facility], Radiant Results Inft User - 01/21/2021 8:17 AM CDTEXAM: XR CHEST 1 VWHISTORY: ETT placement Advanced ETT 1 cm, please confirm placementCOMPARISON: None.FINDINGS:The tip of the endotracheal tube is at the level of the clavicles and thechest tubes on both sides and mediastinal drain are unchangedin position.The tip of the [place]-Dena catheter is in the outflow tract of the rightventricle or just enters the main pulmonary artery, and the tip of theright IJ line is in the superior vena cava. The heart and great vessels arenormal except for prominence of the thoracic aorta the lungs are wellexpanded and clear except for minor basilar subsegmental atelectasis on theright.[facility] HospitalPhosphorus2021-04-29 11:09:28 Test Item Value Reference Range Interpretation Comments PHOSPHORUS (test code = 0150259929) 3.8 mg/dL 2.5-5.0 Lab Interpretation (test code = Normal 20024-5) [facility] HospitalBasic Metabolic Panel (NA, K, CL, CO2, GLUCOSE, BUN, CREATININE, CA)2021-01-21 11:09:27 Test Item Value Reference Range Interpretation Comments NA (test code = 136 mmol/L 135-145 6114386101) K (test code = 4.3 mmol/L 3.5-5.0 8328931973) CL (test code = 106 mmol/L 98-108 3630457301) CO2 TOTAL (test code = 24 mmol/L 23-31 2814793787) AGAP (test code = 6 2-16 4040469577) BUN (test code = 8 mg/dL 7-23 1354889535) GLUCOSE (test code = 147 mg/dL 70-110 H 1253708745) CREATININE (test code = 0.49 mg/dL 0.60-1.25 L 9875106378) CALCIUM (test code = 7.6 mg/dL 8.6-10.6 L 8184409256) eGFR (test code = 162.9 mL/min/1.73m2 7306598810) CARLIE (test code = CARLIE) Association of Glomerular Filtration Rate (GFR) and Staging of Kidney Disease* + --+ --+ ------+| GFR (mL/min/1.73 m2) | With Kidney Damage | Without Kidney Damage+ --------+ --------+ +| >90 | Stage one | Normal + --+ --+ ------+| 60-89 | Stage two | Decreased GFR + --+ --+ ------+| 30-59 | Stage three | Stage three + --+ --+ ------+| 15-29 | Stage four | Stage four + --+ --+ ------+| <15 (or dialysis) | Stage five | Stage five + --+ --+ ------+ *Each stage assumes the associated GFR level has been in effect for at least three months. Stages 1 to 5, with or without kidney disease, indicate chronic kidney disease. Notes: Determination of stages one and two (with eGFR >59mL/min/1.73 m2) requires estimation of kidney damage for at least three months as defined by structural or functional abnormalities of the kidney, manifested by either:Pathological abnormalities or Markers of kidney damage (including abnormalities in the composition of the blood or urine or abnormalities in imaging tests). Lab Interpretation Abnormal (test code = 90432-9) [facility] HospitalMagnesium2021-04-29 11:09:27 Test Item Value Reference Range Interpretation Comments MAGNESIUM (test code = 0127926416) 1.9 mg/dL 1.7-2.4 Lab Interpretation (test code = Normal 14491-4) [facility] acute [facility] with [id number] 11:02:38 Test Item Value Reference Range Interpretation Comments WBC (test code = 7.48 See_Comment [Automated 6690-2) message] The sy stem which generated this result transmitted reference range : 4.20 - 10.70 10*3/?L. The reference range was not used to interpret this result as normal/abnormal . RBC (test code = 2.48 See_Comment L [Automated 849-8) message] The sy stem which generated this result transmitted reference range : 4.26 - 5.52 10*6/?L. The reference range was not used to interpret this result as normal/abnormal . HGB (test code = 7.7 g/dL 12.2-16.4 L 718-7) HCT (test code = 22.7 % 38.4-49.3 L 4544-3) MCV (test code = 91.5 fL 81.7-95.6 787-2) MCH (test code = 31.0 pg 26.1-32.7 785-6) MCHC (test code = 33.9 g/dL 31.2-35.0 786-4) RDW-SD (test code = 53.3 fL 38.5-51.6 H 18565-3) RDW-CV (test code = 15.9 % 12.1-15.4 H 788-0) PLT (test code = 187 See_Comment [Automated 777-3) message] The sy stem which generated this result transmitted reference range : 150 - 328 10*3/ ?L. The reference r jaswinder was not used to interpret this result as normal/abnormal . MPV (test code = 9.8 fL 9.8-13.0 22536-0) NRBC/100 WBC (test 0.0 See_Comment [Automat ed code = 7248960015) message] The system which generated this result transmitted reference range : 0.0 - 10.0 /100 WBCs. The refer ence range was not u sed to interpret th is result as normal/abnormal . NRBC x10^3 (test code <0.01 See_Comment [Auto mated = 0715350246) message] The s ystem which generated this result transmitted reference range : 10*3/?L. The reference range was not used to interpret this result as normal/abnormal . GRAN MAT (NEUT) % 86.1 % (test code = 770-8) IMM GRAN % (test code 0.10 % = 6669126448) LYMPH % (test code = 4.4 % 736-9) MONO % (test code = 9.4 % 5905-5) EOS % (test code = 0.0 % 713-8) BASO % (test code = 0.0 % 706-2) GRAN MAT x10^3(ANC) 6.44 10*3/uL 1.99-6.95 (test code = 1923872602) IMM GRAN x10^3 (test <0.03 0.00-0.06 code = 0089001888) LYMPH x10^3 (test code 0.33 10*3/uL 1.09-3.23 L = 731-0) MONO x10^3 (test code 0.70 10*3/uL 0.36-1.02 = 742-7) EOS x10^3 (test code = <0.03 0.06-0.53 L 711-2) BASO x10^3 (test code <0.03 0.01-0.09 = 704-7) BASO STIPPLING (test Present A code = 703-9) BANDS (test code = Increased A 7821522124) Lab Interpretation Abnormal (test code = 44679-1) [facility] HospitalProthrombin Time / [id number] 10:45:25 Test Item Value Reference Range Interpretation Comments PROTIME PATIENT (test 13.9 See_Comment H [Auto mated message] code = 5964-2) The system [facility] generated this result transmitted ref erence range: 10.1 - 1 2.6 Seconds. The reference range was not used to int erpret this result as normal/abnormal . INR (test code = 6301-6) 1.2 Nor mal INR <1.1; Warfarin Therap eutic range 2.0 to 3. 0 or 2.5 to 3.5, dep ending upon the indica tions. Lab Interpretation (test Abnormal code = 78293-6) [facility] HospitalABG+COOX+NA+K+GLU+CA2+ (While Intubated) 2021-01-21 10:16:45 Test Item Value Reference Range Interpretation Comments PH (test code = 2) 7.43 7.35-7.45 PCO2 (test code = 38 See_Comment [Automat ed message] 0247654607) The system [employer] generated this result transmit thuy reference range : 35 - 45 mmHg. The reference range was not used to interpret this result as normal/abnormal . PO2 (test code = 152 See_Comment H [Automated message] 4518951884) The system [facility] generated this result transmit thuy reference range : 80 - 100 mmHg. The reference range was not used to interpret this result as normal/abnormal . HCO3 (test code = 24 See_Comment [Automate d message] 3649672151) The system [facility] [employer] generated this result transmit thuy reference range : 22 - 26 mEq/L. The reference range was not used to interpret this result as normal/abnormal . BE (test code = -0.1 See_Comment [Automated message] 0467116422) The system [facility] [employer] generated this result transmit thuy reference range : -3.0 - 3.0 mEq/ L. The reference r jaswinder was not used to interpret this result as normal/abnormal . THB (test code = 8.4 g/dL 13.5-18.0 L 6827652967) %O2HB (test code = 97.8 % 94.0-99.0 2822307428) %COHB ART (test code = 1.0 % 0.0-1.5 4429296662) %METHB ART (test code = 0.2 % 0.4-1.5 L 3580879046) VOL%O2 ART (test code = 11.9 % 15.0-23.0 L 9744845627) NA (test code = 133 mmol/L 135-145 L 0338219879) K+ (test code = 4.3 mmol/L 3.5-5.0 5574542614) AC CA IONZ (test code = 4.40 mg/dL 4.50-5.30 L 6850726344) GLUCOSE (test code = 157 mg/dL 70-110 H 0287449120) Lab Interpretation Abnormal (test code = 45276-2) [facility] WITHOUT [id number] 03:17:28 Test Item Value Reference Range Interpretation Comments WBC (test code = 6690-2) 7.84 See_Comment [A utomated message] The system [employer] generated this result transmit thuy reference range : 4.20 - 10.70 10*3/?L. The reference range was not used to interpret this result as normal/abnormal . RBC (test code = 789-8) 2.51 See_Comment L [Au tomated message] The system [employer] generated this result transmit thuy reference range : 4.26 - 5.52 10* 6/?L. The reference r jaswinder was not used to interpret this result as normal/abnormal . HGB (test code = 718-7) 7.9 g/dL 12.2-16.4 L HCT (test code = 4544-3) 23.6 % 38.4-49.3 L MCH (test code = 785-6) 31.5 pg 26.1-32.7 MCV (test code = 787-2) 94.0 fL 81.7-95.6 MCHC (test code = 786-4) 33.5 g/dL 31.2-35.0 PLT (test code = 777-3) 183 See_Comment [Au tomated message] The system [employer] generated this result transmit thuy reference range : 150 - 328 10*3/?L. The reference range was not used to interpret this result as normal/abnormal . MPV (test code = 9.6 fL 9.8-13.0 L 04987-7) RDW-CV (test code = 15.6 % 12.1-15.4 H 788-0) RDW-SD (test code = 53.7 fL 38.5-51.6 H 41980-1) NRBC x10^3 (test code = <0.01 See_Comment [Au tomated message] 3813878328) The system [employer] generated this result transmit thuy reference range : 10*3/?L. The reference range was not used to interpret this result as normal/abnormal . NRBC/100 WBC (test code 0.0 See_Comment [Au tomated message] = 7911332036) The system [employer] [facility] generated this result transmit thuy reference range : 0.0 - 10.0 /100 WBC s. The reference r jaswinder was not used to interpret this result as normal/abnormal . IPF % (test code = 5145428669) Lab Interpretation (test Abnormal code = 57418-6) General acute hospital WITHOUT [id number] 01:41:33 Test Item Value Reference Range Interpretation Comments WBC (test code = 6690-2) 6.89 See_Comment [A utomated message] The system [employer] generated this result transmit thuy reference range : 4.20 - 10.70 10*3/?L. The reference range was not used to interpret this result as normal/abnormal . RBC (test code = 789-8) 2.44 See_Comment L [Au tomated message] The system [employer] generated this result transmit thuy reference range : 4.26 - 5.52 10* 6/?L. The reference r jaswinder was not used to interpret this result as normal/abnormal . HGB (test code = 718-7) 7.7 g/dL 12.2-16.4 L HCT (test code = 4544-3) 23.0 % 38.4-49.3 L MCH (test code = 785-6) 31.6 pg 26.1-32.7 MCV (test code = 787-2) 94.3 fL 81.7-95.6 MCHC (test code = 786-4) 33.5 g/dL 31.2-35.0 PLT (test code = 777-3) 174 See_Comment [Au tomated message] The system [facility] generated this result transmit thuy reference range : 150 - 328 10*3/?L. The reference range was not used to interpret this result as normal/abnormal . MPV (test code = 9.5 fL 9.8-13.0 L 99132-5) RDW-CV (test code = 15.5 % 12.1-15.4 H 788-0) RDW-SD (test code = 53.7 fL 38.5-51.6 H 92136-0) NRBC x10^3 (test code = <0.01 See_Comment [Au tomated message] 3036020982) The system [facility] generated this result transmit thuy reference range : 10*3/?L. The reference range was not used to interpret this result as normal/abnormal . NRBC/100 WBC (test code 0.0 See_Comment [Au tomated message] = 8119098697) The system [facility] generated this result transmit thuy reference range : 0.0 - 10.0 /100 WBC s. The reference r jaswinder was not used to interpret this result as normal/abnormal . IPF % (test code = 2746944925) Lab Interpretation (test Abnormal code = 76777-3) [facility]AB[facility]COOX+NA+K+GLU+CA2+ (While Intubated) 2021-01-21 01:34:15 Test Item Value Reference Range Interpretation Comments PH (test code = 2) 7.39 7.35-7.45 PCO2 (test code = 39 See_Comment [Automat ed message] 9192908746) The system [facility] generated this result transmit thuy reference range : 35 - 45 mmHg. The reference range was not used to interpret this result as normal/abnormal . PO2 (test code = 158 See_Comment H [Automated message] 8727271470) The system [facility] generated this result transmit thuy reference range : 80 - 100 mmHg. The reference range was not used to interpret this result as normal/abnormal . HCO3 (test code = 23 See_Comment [Automate d message] 9954964174) The system [facility] generated this result transmit thuy reference range : 22 - 26 mEq/L. The reference range was not used to interpret this result as normal/abnormal . BE (test code = -2.2 See_Comment [Automated message] 6635215065) The system [employer] generated this result transmit thuy reference range : -3.0 - 3.0 mEq/ L. The reference r jaswinder was not used to interpret this result as normal/abnormal . THB (test code = 8.0 g/dL 13.5-18.0 LL 1768504560) %O2HB (test code = 98.1 % 94.0-99.0 5107643794) %COHB ART (test code = 0.6 % 0.0-1.5 0854298238) %METHB ART (test code = 0.2 % 0.4-1.5 L 8871396476) VOL%O2 ART (test code = 11.4 % 15.0-23.0 L 3792153225) NA (test code = 136 mmol/L 135-145 8476594297) K+ (test code = 3.9 mmol/L 3.5-5.0 3942171745) AC CA IONZ (test code = 4.20 mg/dL 4.50-5.30 L 2301306454) GLUCOSE (test code = 129 mg/dL 70-110 H 3412232279) Lab Interpretation Abnormal (test code = 48966-6) [facility] 1 View (on admission)2021-01-21 00:29:18 Impression: Endotracheal tube is in appropriate position. Possible orogastric tube or nasogastric tube is looped upon itselfoverlapping the upper and mid esophagus, the distal aspect overlaps theneck and the tip is off the film; repositioning is recommended. Right internal jugular vein [place]-Dena catheter and sheath, the tip of thecatheter overlaps the main pulmonary artery. Bilateral and central chest tubes. No pneumothorax. Minimal left lung base subsegmental atelectasis. RL: 460End of report. [facility], Radiant Results Inft User - 01/20/2021 7:30 PM CDTExam: Chest (1 View), 01/20/2021 5:30 PM.Ordering Physician: ESCOBAR CABRERA.History: s/p open heart surgery.Technique: AP portable view of the chest.Comparison: None.Findings: Endotracheal tube is in appropriate position and the tip ends 4.9 cmsuperior to the vanda. Possible orogastric tube or nasogastric tube is looped upon itselfoverlapping the upper and mid esophagus, the distal aspect overlaps theneck and the tip is off the film; repositioning is recommended.Right internal jugular vein [place]-Dena catheter and sheath, the tip of thecatheter overlaps the main pulmonary artery. Bilateral and central chesttubes.Borderline cardiomegaly. Intact median sternotomy wires. No pneumothorax orsignificant pleural effusion. Minimal left lung base subsegmentalatelectasis.IMPRESSIONImpression: Endotracheal tube is in appropriate position. Possible orogastric tube or nasogastric tube is looped upon itselfoverlapping the upper and mid esophagus, the distal aspect overlaps theneck and the tipis off the film; repositioning is recommended.Right internal jugular vein [place]-Dena catheter and sheath, the tip of thecatheter overlaps the main pulmonary artery. Bilateral and central chest tubes.No pneumothorax. Minimal left lung base subsegmental atelectasis.RL: 460End of report. General acute hospital with [id number] 00:09:19 Test Item Value Reference Range Interpretation Comments WBC (test code = 6.15 See_Comment [Automated 7690-2) message] The sy stem which generated this result transmitted reference range : 4.20 - 10.70 10*3/?L. The reference range was not used to interpret this result as normal/abnormal . RBC (test code = 2.58 See_Comment L [Automated 939-8) message] The sy stem which generated this result transmitted reference range : 4.26 - 5.52 10*6/?L. The reference range was not used to interpret this result as normal/abnormal . HGB (test code = 8.1 g/dL 12.2-16.4 L 718-7) HCT (test code = 24.2 % 38.4-49.3 L 4544-3) MCV (test code = 93.8 fL 81.7-95.6 787-2) MCH (test code = 31.4 pg 26.1-32.7 785-6) MCHC (test code = 33.5 g/dL 31.2-35.0 786-4) RDW-SD (test code = 51.8 fL 38.5-51.6 H 49452-7) RDW-CV (test code = 15.1 % 12.1-15.4 788-0) PLT (test code = 160 See_Comment [Automated 777-3) message] The sy stem which generated this result transmitted reference range : 150 - 328 10*3/ ?L. The reference r jaswinder was not used to interpret this result as normal/abnormal . MPV (test code = 9.8 fL 9.8-13.0 73192-0) NRBC/100 WBC (test 0.0 See_Comment [Automat ed code = 8453404860) message] The system which generated this result transmitted reference range : 0.0 - 10.0 /100 WBCs. The refer ence range was not u sed to interpret th is result as normal/abnormal . NRBC x10^3 (test code <0.01 See_Comment [Auto mated = 9651459829) message] The s ystem which generated this result transmitted reference range : 10*3/?L. The reference range was not used to interpret this result as normal/abnormal . GRAN MAT (NEUT) % 85.5 % (test code = 770-8) IMM GRAN % (test code 0.50 % = 1159349389) LYMPH % (test code = 7.8 % 736-9) MONO % (test code = 5.9 % 5905-5) EOS % (test code = 0.0 % 713-8) BASO % (test code = 0.3 % 706-2) GRAN MAT x10^3(ANC) 5.26 10*3/uL 1.99-6.95 (test code = 7570592216) IMM GRAN x10^3 (test 0.03 10*3/uL 0.00-0.06 code = 0670527699) LYMPH x10^3 (test code 0.48 10*3/uL 1.09-3.23 L = 731-0) MONO x10^3 (test code 0.36 10*3/uL 0.36-1.02 = 742-7) EOS x10^3 (test code = <0.03 0.06-0.53 L 711-2) BASO x10^3 (test code <0.03 0.01-0.09 = 704-7) Lab Interpretation Abnormal (test code = 91490-0) [facility]2021-[facility] 23:41:31 Test Item Value Reference Range Interpretation Comments PHOSPHORUS (test code = 1198743919) 2.1 mg/dL 2.5-5.0 L Lab Interpretation (test code = Abnormal 24619-8) [facility] (NA, K, CL, CO2, GLUCOSE, BUN, CREATININE, CA)2021-01-20 23:41:30 Test Item Value Reference Range Interpretation Comments NA (test code = 137 mmol/L 135-145 7473701115) K (test code = 3.9 mmol/L 3.5-5.0 7056107499) CL (test code = 108 mmol/L 98-108 7793985616) CO2 TOTAL (test code = 19 mmol/L 23-31 L 2143047507) AGAP (test code = 10 2-16 2102611406) BUN (test code = 7 mg/dL 7-23 7722876632) GLUCOSE (test code = 123 mg/dL 70-110 H 0301591277) CREATININE (test code = 0.43 mg/dL 0.60-1.25 L 0740769951) CALCIUM (test code = 7.2 mg/dL 8.6-10.6 L 8010334286) eGFR (test code = 189.5 mL/min/1.73m2 0403646046) CARLIE (test code = CARLIE) Association of Glomerular Filtration Rate (GFR) and Staging of Kidney Disease* + --+ --+ ------+| GFR (mL/min/1.73 m2) | With Kidney Damage | Without Kidney Damage+ --------+ --------+ +| >90 | Stage one | Normal + --+ --+ ------+| 60-89 | Stage two | Decreased GFR + --+ --+ ------+| 30-59 | Stage three | Stage three + --+ --+ ------+| 15-29 | Stage four | Stage four + --+ --+ ------+| <15 (or dialysis) | Stage five | Stage five + --+ --+ ------+ *Each stage assumes the associated GFR level has been in effect for at least three months. Stages 1 to 5, with or without kidney disease, indicate chronic kidney disease. Notes: Determination of stages one and two (with eGFR >59mL/min/1.73 m2) requires estimation of kidney damage for at least three months as defined by structural or functional abnormalities of the kidney, manifested by either:Pathological abnormalities or Markers of kidney damage (including abnormalities in the composition of the blood or urine or abnormalities in imaging tests). Lab Interpretation Abnormal (test code = 59652-9) [facility] Hospital[facility]esium2021-04-28 23:41:30 Test Item Value Reference Range Interpretation Comments MAGNESIUM (test code = 0238196788) 2.3 mg/dL 1.7-2.4 Lab Interpretation (test code = Normal 56008-4) General acute hospital WITH [id number] 22:53:41 Test Item Value Reference Range Interpretation Comments WBC (test code = 6.84 See_Comment [Automated 6690-2) message] The sy stem which generated this result transmitted reference range : 4.20 - 10.70 10*3/?L. The reference range was not used to interpret this result as normal/abnormal . RBC (test code = 3.10 See_Comment L [Automated 789-8) message] The sy stem which generated this result transmitted reference range : 4.26 - 5.52 10*6/?L. The reference range was not used to interpret this result as normal/abnormal . HGB (test code = 9.5 g/dL 12.2-16.4 L 718-7) HCT (test code = 29.1 % 38.4-49.3 L 4544-3) MCV (test code = 93.9 fL 81.7-95.6 787-2) MCH (test code = 30.6 pg 26.1-32.7 785-6) MCHC (test code = 32.6 g/dL 31.2-35.0 786-4) RDW-SD (test code = 50.9 fL 38.5-51.6 75447-6) RDW-CV (test code = 14.8 % 12.1-15.4 788-0) PLT (test code = 68 See_Comment L [Automated 777-3) message] The sy stem which generated this result transmitted reference range : 150 - 328 10*3/ ?L. The reference r jaswinder was not used to interpret this result as normal/abnormal . MPV (test code = 9.7 fL 9.8-13.0 L 03620-3) IPF % (test code = 2.5 % 1.2-10.7 Platelet count 9387054071) measured by fluorescence method. NRBC/100 WBC (test 0.0 See_Comment [Automat ed code = 1901252123) message] The system which generated this result transmitted reference range : 0.0 - 10.0 /100 WBCs. The refer ence range was not u sed to interpret th is result as normal/abnormal . NRBC x10^3 (test code <0.01 See_Comment [Auto mated = 3765962649) message] The s ystem which generated this result transmitted reference range : 10*3/?L. The reference range was not used to interpret this result as normal/abnormal . GRAN MAT (NEUT) % 81.7 % (test code = 770-8) IMM GRAN % (test code 0.70 % = 2173939527) LYMPH % (test code = 11.3 % 736-9) MONO % (test code = 5.7 % 5905-5) EOS % (test code = 0.3 % 713-8) BASO % (test code = 0.3 % 706-2) GRAN MAT x10^3(ANC) 5.59 10*3/uL 1.99-6.95 (test code = 1355297515) IMM GRAN x10^3 (test 0.05 10*3/uL 0.00-0.06 code = 7136746783) LYMPH x10^3 (test code 0.77 10*3/uL 1.09-3.23 L = 731-0) MONO x10^3 (test code 0.39 10*3/uL 0.36-1.02 = 742-7) EOS x10^3 (test code = <0.03 0.06-0.53 L 711-2) BASO x10^3 (test code <0.03 0.01-0.09 = 704-7) ALEJANDRO CELLS (test code 2+ See_Comment A [Auto mated = 6562-9) message] The sy stem which generated this result transmitted reference range : (none). The reference range was not used to interpret this result as normal/abnormal . Lab Interpretation Abnormal (test code = 22113-0) [facility]X+NA+K+GLU+CA2+ (While Intubated) 2021-01-20 22:49:48 Test Item Value Reference Range Interpretation Comments PH (test code = 2) 7.48 7.35-7.45 H PCO2 (test code = 26 See_Comment L [Automat ed message] [id number]) The system [employer] generated this result transmit thuy reference range : 35 - 45 mmHg. The reference range was not used to interpret this result as normal/abnormal . PO2 (test code = 291 See_Comment H [Automated message] [id number]) The system [employer] generated this result transmit thuy reference range : 80 - 100 mmHg. The reference range was not used to interpret this result as normal/abnormal . HCO3 (test code = 20 See_Comment L [Automate d message] 5646893455) The system [employer] generated this result transmit thuy reference range : 22 - 26 mEq/L. The reference range was not used to interpret this result as normal/abnormal . BE (test code = -3.9 See_Comment L [Automated message] 3955164242) The system [employer] generated this result transmit thuy reference range : -3.0 - 3.0 mEq/ L. The reference r jaswinder was not used to interpret this result as normal/abnormal . THB (test code = 8.5 g/dL 13.5-18.0 L 3444535785) %O2HB (test code = 99.0 % 94.0-99.0 6129410632) %COHB ART (test code = 0.3 % 0.0-1.5 2520674751) %METHB ART (test code = 0.3 % 0.4-1.5 L 1888650464) VOL%O2 ART (test code = 12.6 % 15.0-23.0 L 5298495541) NA (test code = 138 mmol/L 135-145 2861091281) K+ (test code = 4.0 mmol/L 3.5-5.0 5657792740) AC CA IONZ (test code = 4.00 mg/dL 4.50-5.30 L 7362589879) GLUCOSE (test code = 121 mg/dL 70-110 H 8242174387) Lab Interpretation Abnormal (test code = 45572-6) [facility]20 Test Item Value Reference Range Interpretation Comments Fibrinogen (test code = 9192729269) 140 mg/dL 167-453 L Lab Interpretation (test code = Abnormal 32806-7) [facility] / [id number] 22:31:15 Test Item Value Reference Range Interpretation Comments PROTIME PATIENT (test 20.8 See_Comment H [Auto mated message] code = 5964-2) The system [facility] generated this result transmitted ref erence range: 10.1 - 1 2.6 Seconds. The reference range was not used to int erpret this result as normal/abnormal . INR (test code = 6301-6) 1.8 Nor mal INR <1.1; Warfarin Therap eutic range 2.0 to 3. 0 or 2.5 to 3.5, dep ending upon the indica tions. Lab Interpretation (test Abnormal code = 03713-9) [facility] [id number] 22:30:08 Test Item Value Reference Range Interpretation Comments APTT Patient (test code = 28 See_Comment [ Automated message] 3173-2) The system [employer] generated this result transmitted ref erence range: 26 - 36 Seconds. The re ference range was not u sed to interpret this result as normal/abnor mal. Lab Interpretation (test Normal code = 77124-3) [facility] ACT HIGH [id number] 22:22:24 Test Item Value Reference Range Interpretation Comments ACTHR (test code = 519 See_Comment H [Automat ed message] 5785743058) The system [employer] generated this result transmitted ref erence range: 96 - 152 Seconds. The reference range was not used to int erpret this result as normal/abnormal . Lab Interpretation (test Abnormal code = 45090-3) [facility] [id number] 22:22:24 Test Item Value Reference Range Interpretation Comments ACTHR (test code = 106 See_Comment [Automat ed message] 1376695856) The system [employer] generated this result transmitted ref erence range: 96 - 152 Seconds. The re ference range was not u sed to interpret this result as normal/abnor mal. Lab Interpretation (test Normal code = 95683-0) [facility] Platelets (in units): 2 Units~ 2021-01-20 21:54:03 Test Item Value Reference Range Interpretation Comments Unit Blood Type (test O Pos code = 4410) ISBT Blood Type Code 5100 (test code = 335103) Unit Number (test code [id number] = 4411) Blood Expiration Date [id number] & Time (test code = 102914) Status Information Issued (test code = 4412) Product Identification Platelets (test code = 4413) Product Code (test [id number] Performed at [facility] code = 4414) Laboratory Services - [facility] Blood [address] [address]Obdo Free: [phone] A No. [id number] [facility] ACUTE CARE [id number] 21:19:29 Test Item Value Reference Range Interpretation Comments PH (test code = 2) 7.43 7.35-7.45 PCO2 (test code = 32 See_Comment L [Automat ed message] 3453515334) The system [employer] generated this result transmit thuy reference range : 35 - 45 mmHg. The reference range was not used to interpret this result as normal/abnormal . PO2 (test code = 408 See_Comment H [Automated message] 6964595788) The system [employer] generated this result transmit thuy reference range : 80 - 100 mmHg. The reference range was not used to interpret this result as normal/abnormal . BE (test code = -3.0 See_Comment [Automated message] 1883490018) The system [employer] generated this result transmit thuy reference range : -3.0 - 3.0 mEq/ L. The reference r jaswinder was not used to interpret this result as normal/abnormal . HCO3 (test code = 21 See_Comment L [Automate d message] 7151448456) The system [employer] generated this result transmit thuy reference range : 22 - 26 mEq/L. The reference range was not used to interpret this result as normal/abnormal . %O2HB (test code = 100.0 % 95.0-98.0 H 3954168917) NA (test code = 141 mmol/L 135-145 0393899858) K+ (test code = 3.8 mmol/L 3.5-5.0 3431828210) AC CA IONZ (test code = 5.90 mg/dL 4.50-5.30 H 2075378409) GLUCOSE (test code = 131 mg/dL 70-110 H 4969541738) AC Hematocrit (test 16 See_Comment LL [Automa thuy message] code = 4686944397) The syste m which generated this result transmit thuy reference range : 40 - 54 VOL %. The reference range was not used to interpret this result as normal/abnormal . THB (test code = 5.4 g/dL 13.5-18.0 LL 4689406727) AC TC02 (test code = 22 mmol/L See_Comment L [Autom ated message] 3759733645) The system [employer] generated this result transmit thuy reference range : 23-27 mmol/L. T he reference range was not used to interpret this result as normal/abnormal . Lab Interpretation Abnormal (test code = 23578-4) [facility] ACUTE CARE [id number] 20:35:53 Test Item Value Reference Range Interpretation Comments PH (test code = 2) 7.44 7.35-7.45 PCO2 (test code = 33 See_Comment L [Automat ed message] 8231730862) The system [employer] generated this result transmit thuy reference range : 35 - 45 mmHg. The reference range was not used to interpret this result as normal/abnormal . PO2 (test code = 213 See_Comment H [Automated message] 1198931861) The system [employer] generated this result transmit thuy reference range : 80 - 100 mmHg. The reference range was not used to interpret this result as normal/abnormal . BE (test code = -2.0 See_Comment [Automated message] 9032366870) The system [employer] generated this result transmit thuy reference range : -3.0 - 3.0 mEq/ L. The reference r jaswinder was not used to interpret this result as normal/abnormal . HCO3 (test code = 22 See_Comment [Automate d message] 0779232353) The system [employer] generated this result transmit thuy reference range : 22 - 26 mEq/L. The reference range was not used to interpret this result as normal/abnormal . %O2HB (test code = 100.0 % 95.0-98.0 H 6851333713) NA (test code = 138 mmol/L 135-145 3277001754) K+ (test code = 4.6 mmol/L 3.5-5.0 3497211803) AC CA IONZ (test code = 3.40 mg/dL 4.50-5.30 L 8884314776) GLUCOSE (test code = 170 mg/dL 70-110 H 1288911806) AC Hematocrit (test 20 See_Comment LL [Automa thuy message] code = 9281233954) The syste m which generated this result transmit thuy reference range : 40 - 54 VOL %. The reference range was not used to interpret this result as normal/abnormal . THB (test code = 6.8 g/dL 13.5-18.0 LL 0910359919) AC TC02 (test code = 23 mmol/L See_Comment [Autom ated message] 0310473394) The system [employer] generated this result transmit thuy reference range : 23-27 mmol/L. T he reference range was not used to interpret this result as normal/abnormal . Lab Interpretation Abnormal (test code = 02145-1) [facility] ACUTE CARE [id number] 19:40:19 Test Item Value Reference Range Interpretation Comments PH (test code = 2) 7.45 7.35-7.45 PCO2 (test code = 35 See_Comment [Automat ed message] 6788372814) The system [facility] [employer] generated this result transmit thuy reference range : 35 - 45 mmHg. The reference range was not used to interpret this result as normal/abnormal . PO2 (test code = 218 See_Comment H [Automated message] 6372452100) The system [employer] generated this result transmit thuy reference range : 80 - 100 mmHg. The reference range was not used to interpret this result as normal/abnormal . BE (test code = 0.0 See_Comment [Automated message] 2063557505) The system [employer] generated this result transmit thuy reference range : -3.0 - 3.0 mEq/ L. The reference r jaswinder was not used to interpret this result as normal/abnormal . HCO3 (test code = 24 See_Comment [Automate d message] 3796649716) The system [employer] generated this result transmit thuy reference range : 22 - 26 mEq/L. The reference range was not used to interpret this result as normal/abnormal . %O2HB (test code = 100.0 % 95.0-98.0 H 8269749981) NA (test code = 139 mmol/L 135-145 3836273555) K+ (test code = 4.3 mmol/L 3.5-5.0 5138283933) AC CA IONZ (test code = 3.50 mg/dL 4.50-5.30 L 8051963821) GLUCOSE (test code = 128 mg/dL 70-110 H 4887312544) AC Hematocrit (test 19 See_Comment LL [Automa thuy message] code = 8405944743) The syste m which generated this result transmit thuy reference range : 40 - 54 VOL %. The reference range was not used to interpret this result as normal/abnormal . THB (test code = 6.5 g/dL 13.5-18.0 LL 9533551130) AC TC02 (test code = 25 mmol/L See_Comment [Autom ated message] 8242254581) The system [employer] generated this result transmit thuy reference range : 23-27 mmol/L. T he reference range was not used to interpret this result as normal/abnormal . Lab Interpretation Abnormal (test code = 41378-8) [facility] ACUTE CARE [id number] 19:16:31 Test Item Value Reference Range Interpretation Comments PH (test code = 2) 7.32 7.35-7.45 L PCO2 (test code = 49 See_Comment H [Automat ed message] 9039726566) The system [employer] generated this result transmit thuy reference range : 35 - 45 mmHg. The reference range was not used to interpret this result as normal/abnormal . PO2 (test code = 320 See_Comment H [Automated message] 9092584250) The system [employer] generated this result transmit thuy reference range : 80 - 100 mmHg. The reference range was not used to interpret this result as normal/abnormal . BE (test code = -1.0 See_Comment [Automated message] 8443025244) The system [employer] generated this result transmit thuy reference range : -3.0 - 3.0 mEq/ L. The reference r jaswinder was not used to interpret this result as normal/abnormal . HCO3 (test code = 25 See_Comment [Automate d message] 0331467452) The system [employer] generated this result transmit thuy reference range : 22 - 26 mEq/L. The reference range was not used to interpret this result as normal/abnormal . %O2HB (test code = 100.0 % 95.0-98.0 H 1654349401) NA (test code = 139 mmol/L 135-145 7181951507) K+ (test code = 4.1 mmol/L 3.5-5.0 2224525424) AC CA IONZ (test code = 3.50 mg/dL 4.50-5.30 L 8568472620) GLUCOSE (test code = 77 mg/dL 70-110 3075261747) AC Hematocrit (test 18 See_Comment LL [Automa thuy message] code = 8670355268) The syste m which generated this result transmit thuy reference range : 40 - 54 VOL %. The reference range was not used to interpret this result as normal/abnormal . THB (test code = 6.1 g/dL 13.5-18.0 LL 3902362696) AC TC02 (test code = 27 mmol/L See_Comment [Autom ated message] 5934283105) The system [employer] generated this result transmit thuy reference range : 23-27 mmol/L. T he reference range was not used to interpret this result as normal/abnormal . Lab Interpretation Abnormal (test code = 88148-2) [facility] P[facility] RBC (in units), 2 Units 2021-01-20 18:06:15 Test Item Value Reference Range Interpretation Comments Cross Match Result Compatible (test code = 4409) ISBT Blood Type Code 6200 (test code = 047605) Unit Blood Type (test A Pos code = 4410) Unit Number (test [id number] code = 4411) Blood Expiration Date & Time (test code = 808137) Status Information Issued (test code = 4412) Product Red Blood Cells Identification (test code = 4413) Product Code (test [id number] Performed at [facility] code = 4414) Laboratory Services - [facility] Blood [address] [place] [address]Cild Free: [phone] A No. [id number] [facility] ACUTE CARE [id number] 17:45:13 Test Item Value Reference Range Interpretation Comments PH (test code = 2) 7.40 7.35-7.45 PCO2 (test code = 44 See_Comment [Automat ed message] 2661686660) The system [employer] generated this result transmit thuy reference range : 35 - 45 mmHg. The reference range was not used to interpret this result as normal/abnormal . PO2 (test code = 419 See_Comment H [Automated message] 6640365132) The system [employer] generated this result transmit thuy reference range : 80 - 100 mmHg. The reference range was not used to interpret this result as normal/abnormal . BE (test code = 2.0 See_Comment [Automated message] 3501385372) The system [employer] generated this result transmit thuy reference range : -3.0 - 3.0 mEq/ L. The reference r jaswinder was not used to interpret this result as normal/abnormal . HCO3 (test code = 27 See_Comment H [Automate d message] 1608514426) The system [employer] generated this result transmit thuy reference range : 22 - 26 mEq/L. The reference range was not used to interpret this result as normal/abnormal . %O2HB (test code = 100.0 % 95.0-98.0 H 4193197210) NA (test code = 139 mmol/L 135-145 4286922988) K+ (test code = 4.0 mmol/L 3.5-5.0 0101291581) AC CA IONZ (test code = 4.70 mg/dL 4.50-5.30 2154315020) GLUCOSE (test code = 81 mg/dL 70-110 6330280533) AC Hematocrit (test 26 See_Comment L [Automa thuy message] code = 7557773885) The syste m which generated this result transmit thuy reference range : 40 - 54 VOL %. The reference range was not used to interpret this result as normal/abnormal . THB (test code = 8.8 g/dL 13.5-18.0 L 4909025931) AC TC02 (test code = 29 mmol/L See_Comment H [Autom ated message] 9100025474) The system [employer] generated this result transmit thuy reference range : 23-27 mmol/L. T he reference range was not used to interpret this result as normal/abnormal . Lab Interpretation Abnormal (test code = 28858-3) [facility] P[facility] RBC (in units), 2 Units 2021-01-20 17:16:28 Test Item Value Reference Range Interpretation Comments Cross Match Result Compatible (test code = 4409) ISBT Blood Type Code 6200 (test code = 360156) Unit Blood Type (test A Pos code = 4410) Unit Number (test [id number] code = 4411) Blood Expiration Date [id number] & Time (test code = 022299) Status Information Issued (test code = 4412) Product Red Blood Cells Identification (test code = 4413) Product Code (test [id number] Performed at [facility] code = 4414) Laboratory Services - [facility] Blood [address] [address]Apmt Free: [phone] A No. [id number] General acute hospital WITH [id number] 14:22:21 Test Item Value Reference Range Interpretation Comments WBC (test code = 5.38 See_Comment [Automated 3490-2) message] The sy stem which generated this result transmitted reference range : 4.20 - 10.70 10*3/?L. The reference range was not used to interpret this result as normal/abnormal . RBC (test code = 2.86 See_Comment L [Automated 809-8) message] The sy stem which generated this result transmitted reference range : 4.26 - 5.52 10*6/?L. The reference range was not used to interpret this result as normal/abnormal . HGB (test code = 9.2 g/dL 12.2-16.4 L 718-7) HCT (test code = 28.4 % 38.4-49.3 L 4544-3) MCV (test code = 99.3 fL 81.7-95.6 H 787-2) MCH (test code = 32.2 pg 26.1-32.7 785-6) MCHC (test code = 32.4 g/dL 31.2-35.0 786-4) RDW-SD (test code = 46.5 fL 38.5-51.6 09399-2) RDW-CV (test code = 12.8 % 12.1-15.4 788-0) PLT (test code = 245 See_Comment [Automated 777-3) message] The sy stem which generated this result transmitted reference range : 150 - 328 10*3/ ?L. The reference r jaswinder was not used to interpret this result as normal/abnormal . MPV (test code = 9.6 fL 9.8-13.0 L 95579-2) NRBC/100 WBC (test 0.0 See_Comment [Automat ed code = 9126495665) message] The system which generated this result transmitted reference range : 0.0 - 10.0 /100 WBCs. The refer ence range was not u sed to interpret th is result as normal/abnormal . NRBC x10^3 (test code <0.01 See_Comment [Auto mated = 2714839375) message] The s ystem which generated this result transmitted reference range : 10*3/?L. The reference range was not used to interpret this result as normal/abnormal . GRAN MAT (NEUT) % 63.7 % (test code = 770-8) IMM GRAN % (test code 0.40 % = 9011464434) LYMPH % (test code = 27.1 % 736-9) MONO % (test code = 7.2 % 5905-5) EOS % (test code = 0.9 % 713-8) BASO % (test code = 0.7 % 706-2) GRAN MAT x10^3(ANC) 3.42 10*3/uL 1.99-6.95 (test code = 1512153266) IMM GRAN x10^3 (test <0.03 0.00-0.06 code = 2229577952) LYMPH x10^3 (test code 1.46 10*3/uL 1.09-3.23 = 731-0) MONO x10^3 (test code 0.39 10*3/uL 0.36-1.02 = 742-7) EOS x10^3 (test code = 0.05 10*3/uL 0.06-0.53 L 711-2) BASO x10^3 (test code 0.04 10*3/uL 0.01-0.09 = 704-7) Lab Interpretation Abnormal (test code = 97789-0) [facility] HospitalABORH [id number] 13:57:35 Test Item Value Reference Range Interpretation Comments ABO & RH (test code A Positive Performe d at [facility] = 20) Laboratory Serv [facility] Blood Bank3 [address] [facility] [address]Lsoo Free: [phone] A No. [id number] [facility] HospitalUrinalysis2021-04-28 13:36:49 Test Item Value Reference Range Interpretation Comments APPEARANCE (test code = Hazy Clear A 3716674389) COLOR (test code = Yellow Yellow 8274779980) PH (test code = 5.0 4.8-8.0 4736813437) SP GRAVITY (test code = 1.008 1.003-1.030 6991515630) GLU U QUAL (test code = Normal Normal 9397619510) BLOOD (test code = Negative Negative Interfere nce from 4083247529) ascorbic acid m ay cause false neg ative results. KETONES (test code = 5 mg/dL Negative A 2733272701) PROTEIN (test code = Negative Negative 2887-8) UROBILIN (test code = Normal Normal 4779150588) BILIRUBIN (test code = Negative Negative 4086609544) NITRITE (test code = Negative Negative 2546895392) LEUK ALEKSEY (test code = 75/uL Negative A 0732409227) RBC/HPF (test code = 7 See_Comment H [Autom ated message] 7229284751) The system [employer] generated this result transmitted ref erence range: 0 - 3 HP F. The reference range was not used to int erpret this result as normal/abnormal . WBC/HPF (test code = 5 See_Comment [Autom ated message] 2564203841) The system [employer] generated this result transmitted ref erence range: 0 - 5 HP F. The reference range was not used to int erpret this result as normal/abnormal . BACTERIA (test code = Negative Negative 1417741646) SQ EPITH (test code = <1 See_Comment [Auto mated message] 1135716109) The system [employer] generated this result transmitted ref erence range: <=2 HPF. The reference range was not used to int erpret this result as normal/abnormal . ASCORBIC ACID (test code 20 mg/dL = 9459679107) Lab Interpretation (test Abnormal code = 19357-3) [facility] METABOLIC PANEL (NA, K, CL, CO2, GLUCOSE, BUN, CREATININE, CA)2021-01-20 13:34:51 Test Item Value Reference Range Interpretation Comments NA (test code = 138 mmol/L 135-145 4550470707) K (test code = 4.2 mmol/L 3.5-5.0 1569984822) CL (test code = 104 mmol/L 98-108 7321063507) CO2 TOTAL (test code 26 mmol/L 23-31 = 7155725040) AGAP (test code = 8 2-16 8351046495) BUN (test code = 10 mg/dL 7-23 2813024765) GLUCOSE (test code = 82 mg/dL 70-110 3186181545) CREATININE (test code 0.66 mg/dL 0.60-1.25 = 0803069559) CALCIUM (test code = 9.0 mg/dL 8.6-10.6 5853819847) eGFR (test code = 115.6 mL/min/1.73m2 9672772340) CARLIE (test code = CARLIE) Association of Glomerular Filtration Rate (GFR) and Staging of Kidney Disease* + + +- +| GFR (mL/min/1.73 m2) | With Kidney Damage | Without Kidney Damage+ ------+ ----+ ------+| >90 | Stage one | Normal + + +- +| 60-89 | Stage two | Decreased GFR + + +- +| 30-59 | Stage three | Stage three + + +- +| 15-29 | Stage four | Stage four + + +- +| <15 (or dialysis) | Stage five | Stage five + + +- + *Each stage assumes the associated GFR level has been in effect for at least three months. Stages 1 to 5, with or without kidney disease, indicate chronic kidney disease. Notes: Determination of stages one and two (with eGFR >59mL/min/1.73 m2) requires estimation of kidney damage for at least three months as defined by structural or functional abnormalities of the kidney, manifested by either:Pathological abnormalities or Markers of kidney damage (including abnormalities in the composition of the blood or urine or abnormalities in imaging tests). [facility] HospitalType [facility] Screen - The Type and Screen expires at midnight on the 3rd day after it was drawn. A current Type and Screen is required when RBCs are requested. For all other blood products, a Type and Scre en performed during the current hospitalizati...2021-01-20 13:02:07 Test Item Value Reference Range Interpretation Comments ABO & RH (test code A POSITIVE Performe d at [facility] = 20) Laboratory Serv [facility] Blood Bank3 [address] [facility] [address]Tnfo Free: [phone] A No. [id number] IAT (test code = Negative Performed a t [facility] 1185) Laboratory Serv [facility] Blood Bank3 [address] [facility] s [address]Urzt Free: [phone] A No. [id number] [facility] HospitalPROTHROMBIN TIME / [id number] 13:00:24 Test Item Value Reference Range Interpretation Comments PROTIME PATIENT (test 11.1 See_Comment [Auto mated message] code = 5964-2) The system [employer] generated this result transmitted ref erence range: 10.1 - 1 2.6 Seconds. The re ference range was not u sed to interpret this result as normal/abnor mal. INR (test code = 6301-6) 1.0 Nor mal INR <1.1; Warfarin Therap eutic range 2.0 to 3. 0 or 2.5 to 3.5, dep ending upon the indica tions. Lab Interpretation (test Normal code = 98252-4) [facility]"
--- NOTE | 2021-02-25 20:28 | ER ---
Nurse's Notes [facility] Name: Cecil Butterfield Age: 80 yrs Sex: Male : 1940 Arrival Date: 02/25/2021 Time: 17:56 Bed 13 Private MD: Catracho Aranda T Diagnosis: Uncontrolled hypertension Presentation: 02/25 18:34 Chief complaint: Patient states: Had a triple bypass a month ago, check BP an hour ago jl7 and it was 160/100, denies CP, denies SOB. Coronavirus screen: Client denies travel out of the [place] in the last 14 days. At this time, the client does not indicate any symptoms associated with coronavirus-19. Ebola Screen: No symptoms or risks identified at this time. Initial Sepsis Screen: Does the patient meet any 2 criteria? No. Patient's initial sepsis screen is negative. Does the patient have a suspected source of infection? No. Patient's initial sepsis screen is negative. Risk Assessment: Do you want to hurt yourself or someone else? Patient reports no desire to harm self or others. Onset of symptoms was February 25, 2021. Care prior to arrival: None. 18:34 Method Of Arrival: Ambulatory jl7 18:34 Acuity: JAMSHID 3 jl7 Historical: - Allergies: 18:37 No Known Allergies; jl7 - Home Meds: 20:34 aspirin 81 mg Oral TbEC 1 tab once daily [Active]; atenolol 25 mg Oral tab 1 tab once ap3 daily [Active]; Nexium 40 mg Oral cpDR 1 cap once daily [Active]; - PMHx: 18:37 Anemia; blood transfusion from bleeding ucler; GI Bleed; Ulcers; Hypertension; jl7 - PSHx: 18:37 Hernia repair; jl7 - Immunization history:: Adult Immunizations up to date. - Social history:: Smoking status: Patient denies any tobacco usage or history of. Screenin:32 Abuse screen: Denies threats or abuse. Nutritional screening: No deficits noted. ap3 Tuberculosis screening: No symptoms or risk factors identified. Fall Risk No fall in past 12 months (0 pts). Secondary diagnosis (15 points) impaired mobility, No IV (0 pts). Ambulatory Aid- None/Bed Rest/Nurse Assist (0 pts). Gait- Weak (10 pts.). Mental Status- Oriented to own ability (0 pts). Total Bonner Fall Scale indicates Low Risk Score (25-44 pts). Fall prevention measures have been instituted. Side Rails Up X 2 Frequent Obs/Assesments occuring As available Patient and Family Educated on Fall Prevention Program and strategies. Assessment: 19:37 Reassessment: Attempt to call pt to room, no answer at this time. ad5 20:21 General: Appears in no apparent distress. comfortable, Behavior is calm, cooperative, ap3 appropriate for age. General: patient states he was feeling "off" and took his blood pressure. Patient reports blood pressure was 180s/90s and wanted to get it checked out. Patient states he feels back to baseline now. Pain: Denies pain. Neuro: Level of Consciousness is awake, alert, obeys commands, Oriented to person, place, time, situation. Cardiovascular: Capillary refill < 3 seconds. Respiratory: Airway is patent Respiratory effort is even, unlabored, Respiratory pattern is regular, symmetrical. GI: No signs and/or symptoms were reported involving the gastrointestinal system. : No signs and/or symptoms were reported regarding the genitourinary system. EENT: No signs and/or symptoms were reported regarding the EENT system. Derm: No signs and/or symptoms reported regarding the dermatologic system. Musculoskeletal: No signs and/or symptoms reported regarding the musculoskeletal system. Vital Signs: 18:34 BP 130 / 83; Pulse 98; Resp 17; Temp 98.7; Pulse Ox 100% ; Weight 49.9 kg; Pain 0/10; jl7 20:22 BP 135 / 89; Pulse 87; Resp 16; Pulse Ox 100% on R/A; Pain 0/10; ap3 ED Course: 17:56 Patient arrived in ED. am2 17:56 Catracho Aranda MD is Private Physician. am2 18:36 Triage completed. jl7 18:37 Arm band placed on right wrist. Patient placed in waiting room, Patient notified of jl7 wait time. 19:44 Katelyn Rabago, ELLE is Primary Nurse. ap3 20:11 Pillo Robles MD is Attending Physician. pkl 20:26 Catracho Aranda MD is Referral Physician. pkl 20:33 No provider procedures requiring assistance completed. Patient did not have IV access ap3 during this emergency room visit. 20:34 Patient has correct armband on for positive identification. equipment monitor phototypesetting on. Pulse ap3 ox on. NIBP on. Door closed. Noise minimized. Warm blanket given. Administered Medications: No medications were administered Outcome: 20:27 Discharge ordered by . brunol 20:33 Discharged to home ambulatory, via wheelchair. ap3 20:33 Condition: good 20:33 Discharge instructions given to patient, Instructed on discharge instructions, follow up and referral plans. Demonstrated understanding of instructions, follow-up care. 20:44 Patient left the ED. ap3 Signatures: Pillo Robles MD MD pkl Annemarie Hampton, RN RN jl7 Katelyn Padilla am2 Katelyn Rabago RN RN ap3 Elías Hunt
--- NOTE | 2021-02-25 20:28 | EDPHYS ---
Physician Documentation [facility] Name: Cecil Butterfield Age: 80 yrs Sex: Male : 1940 Arrival Date: 02/25/2021 Time: 17:56 Bed 13 Private MD: Catracho Aranda T ED Physician Pillo Robles HPI: 02/25 20:22 This 80 yrs old Male presents to ER via Ambulatory with complaints of High pkl Blood Pressure. 20:22 The patient has elevated blood pressure and discovered this at home, with a home pkl device. Onset: The symptoms/episode began/occurred today. Associated signs and symptoms: The patient has no apparent associated signs or symptoms. Historical: - Allergies: 18:37 No Known Allergies; jl7 - Home Meds: 20:34 aspirin 81 mg Oral TbEC 1 tab once daily [Active]; atenolol 25 mg Oral tab 1 tab once ap3 daily [Active]; Nexium 40 mg Oral cpDR 1 cap once daily [Active]; - PMHx: 18:37 Anemia; blood transfusion from bleeding ucler; GI Bleed; Ulcers; Hypertension; jl7 - PSHx: 18:37 Hernia repair; jl7 - Immunization history:: Adult Immunizations up to date. - Social history:: Smoking status: Patient denies any tobacco usage or history of. ROS: 20:22 Eyes: Negative for injury, pain, redness, and discharge, ENT: Negative for injury, pkl pain, and discharge, Neck: Negative for injury, pain, and swelling, Cardiovascular: Negative for chest pain, palpitations, and edema, Respiratory: Negative for shortness of breath, cough, wheezing, and pleuritic chest pain, Abdomen/GI: Negative for abdominal pain, nausea, vomiting, diarrhea, and constipation, Back: Negative for injury and pain, : Negative for injury, bleeding, discharge, and swelling, MS/Extremity: Negative for injury and deformity, Skin: Negative for injury, rash, and discoloration, Neuro: Negative for headache, weakness, numbness, tingling, and seizure. Exam: 20:22 Head/Face: Normocephalic, atraumatic. Eyes: Pupils equal round and reactive to light, pkl extra-ocular motions intact. Lids and lashes normal. Conjunctiva and sclera are non-icteric and not injected. Cornea within normal limits. Periorbital areas with no swelling, redness, or edema. ENT: Nares patent. No nasal discharge, no septal abnormalities noted. Tympanic membranes are normal and external auditory canals are clear. Oropharynx with no redness, swelling, or masses, exudates, or evidence of obstruction, uvula midline. Mucous membranes moist. Neck: Trachea midline, no thyromegaly or masses palpated, and no cervical lymphadenopathy. Supple, full range of motion without nuchal rigidity, or vertebral point tenderness. No Meningismus. Chest/axilla: Normal chest wall appearance and motion. Nontender with no deformity. No lesions are appreciated. Cardiovascular: Regular rate and rhythm with a normal S1 and S2. No gallops, murmurs, or rubs. Normal PMI, no JVD. No pulse deficits. Respiratory: Lungs have equal breath sounds bilaterally, clear to auscultation and percussion. No rales, rhonchi or wheezes noted. No increased work of breathing, no retractions or nasal flaring. Abdomen/GI: Soft, non-tender, with normal bowel sounds. No distension or tympany. No guarding or rebound. No evidence of tenderness throughout. Back: No spinal tenderness. No costovertebral tenderness. Full range of motion. Skin: Warm, dry with normal turgor. Normal color with no rashes, no lesions, and no evidence of cellulitis. MS/ Extremity: Pulses equal, no cyanosis. Neurovascular intact. Full, normal range of motion. Neuro: Awake and alert, GCS 15, oriented to person, place, time, and situation. Cranial nerves II-XII grossly intact. Motor strength 5/5 in all extremities. Sensory grossly intact. Cerebellar exam normal. Normal gait. Vital Signs: 18:34 BP 130 / 83; Pulse 98; Resp 17; Temp 98.7; Pulse Ox 100% ; Weight 49.9 kg; Pain 0/10; jl7 20:22 BP 135 / 89; Pulse 87; Resp 16; Pulse Ox 100% on R/A; Pain 0/10; ap3 MDM: 20:11 Patient medically screened. pk 20:22 Data reviewed: vital signs, nurses notes. ED course: Patient said he is asymptomatic. pkl Told his blood pressure is now normal and stable. Patient said he wants to go home now. advised to return if necessary. Patient understood instructions. Administered Medications: No medications were administered Disposition: 02/25/21 20:27 Discharged to Home. Impression: Uncontrolled hypertension. - Condition is Stable. - Medication Reconciliation Form, Thank You Letter, Antibiotic Education, Prescription Opioid Use form. - Follow up: Catracho Aranda MD; When: 2 - 3 days; Reason: Re-evaluation by your physician. - Problem is new. - Symptoms have improved. Signatures: Pillo Robles MD MD pkl Annemarie Hampton RN RN jl7 Katelyn Rabago RN RN ap3 Corrections: (The following items were deleted from the chart) 20:44 20:27 02/25/2021 20:27 Discharged to Home. Impression: Uncontrolled hypertension. ap3 Condition is Stable. Forms are Medication Reconciliation Form, Thank You Letter, Antibiotic Education, Prescription Opioid Use. Follow up: Catracho Aranda; When: 2 - 3 days; Reason: Re-evaluation by your physician. Problem is new. Symptoms have improved. pkl
[2021-02-25 20:49] VITALS: TEMP 98.7; O2SAT 100
[2021-02-25 20:51] VITALS: BP 135/89
== END 2021-02-25 20:44 | disposition home or self-care (01) ==
LOC: ER 17:52
DX: I10 Essential (primary) hypertension (principal); Z79.82 Long term (current) use of aspirin
CPT/HCPCS: 99284

== ENCOUNTER 2021-03-09 00:14 | Emergency (ER) | payer MEDICARE, BC ==
[2021-03-09 03:21] LABS: Absolute Lymphocytes (CBC) 1.6 K/uL (0.7-4.9); Basophils % 0.9 % (0-1.3); Hematocrit 37.3 % (39.6-49.0); Lymphocytes % 27.8 % (15.3-44.8); MPV 7.7 fL (7.6-11.3); RBC Red Blood Cell Count 4.02 M/uL (4.33-5.43)
[2021-03-09 03:22] LABS: Protime INR 1.01
[2021-03-09 03:53] LABS: ALT/SGPT 28 U/L (12-78); AST/SGOT 22 U/L (15-37); Albumin 3.7 g/dL (3.4-5.0); Alkaline Phosphatase 79 U/L (45-117); BUN Blood Urea Nitrogen 11 mg/dL (7-18); Bicarbonate 28 mmol/L (21-32); Bilirubin Direct 0.1 mg/dL (0-0.2); Bilirubin Total 0.3 mg/dL (0.2-1.0); Glucose Level 92 mg/dL (74-106); Magnesium 2.4 mg/dL (1.8-2.4); NT PRO-BNP 924 pg/mL (<450); Potassium 4.4 mmol/L (3.5-5.1); Protein, Total 7.4 g/dL (6.4-8.2); Sodium Level 140 mmol/L (136-145); Troponin (Emerg Dept Use Only) < 0.02 ng/mL (0.0-0.045)
--- NOTE | 2021-03-09 03:58 | ER ---
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 Coronavirus screen: At this time, the client does not indicate any symptoms associated with coronavirus-19. Ebola Screen: No symptoms or risks identified at this time. Initial Sepsis Screen: Does the patient meet any 2 criteria? No. Patient's initial sepsis screen is negative. Does the patient have a suspected source of infection? No. Patient's initial sepsis screen is negative. Risk Assessment: Do you want to hurt yourself or someone else? Patient reports no desire to harm self or others. Onset of symptoms was March 09, 2021. 00:24 Method Of Arrival: Ambulatory bb 00:24 Acuity: JAMSHID 3 bb Historical: - Allergies: 00:28 No Known Allergies; bb - Home Meds: 00:28 Unable to obtain [Active]; bb - PMHx: 00:28 Anemia; blood transfusion from bleeding ucler; GI Bleed; Hypertension; Ulcers; CAD; bb - PSHx: 00:28 CABG; bb - Immunization history:: Adult Immunizations up to date. - Social history:: Smoking status: Patient/guardian denies using tobacco, the patient reports quitting approximately 40 years ago. Screenin:43 Abuse screen: Denies threats or abuse. Denies injuries from another. Nutritional jm8 screening: No deficits noted. Tuberculosis screening: No symptoms or risk factors identified. Fall Risk None identified. Assessment: 00:57 General: Appears in no apparent distress. comfortable, Behavior is calm, cooperative, jm8 appropriate for age. Pain: Denies pain. Neuro: No deficits noted. Level of Consciousness is awake, alert, obeys commands, Oriented to person, place, time. Cardiovascular: Reports palpitations, hypertension, tachycardia. Respiratory: No deficits noted. Airway is patent Trachea midline Respiratory effort is even, unlabored, Respiratory pattern is regular, symmetrical. GI: No deficits noted. No signs and/or symptoms were reported involving the gastrointestinal system. : No deficits noted. No signs and/or symptoms were reported regarding the genitourinary system. EENT: No deficits noted. No signs and/or symptoms were reported regarding the EENT system. Derm: No deficits noted. No signs and/or symptoms reported regarding the dermatologic system. Musculoskeletal: No deficits noted. No signs and/or symptoms reported regarding the musculoskeletal system. 02:18 Reassessment: lab here to draw blood sample at this time. 8 Vital Signs: 00:24 BP 132 / 93; Pulse 90; Resp 16 S; Temp 97.9(TE); Pulse Ox 99% on R/A; Weight 50.8 kg bb (R); Height 5 ft. 4 in. (162.56 cm) (R); Pain 0/10; 03:13 BP 141 / 92; Pulse 55; Resp 16; Pulse Ox 99% on R/A; jm8 04:20 BP 105 / 68; Pulse 81; Resp 16; Pulse Ox 99% ; jm8 00:24 Body Mass Index 19.22 (50.80 kg, 162.56 cm) ED Course: 00:20 Patient arrived in ED. cf2 00:27 Triage completed. bb 00:28 Arm band placed on Patient placed in an exam room, on a stretcher, on pulse oximetry. bb 00:35 Alex Hyde MD is Attending Physician. tw4 00:42 Patient has correct armband on for positive identification. Bed in low position. Call 8 light in reach. Side rails up X2. 02:08 XRAY Chest (1 view) In Process Unspecified. EDMS 03:01 Inserted saline lock: 18 gauge in left antecubital area, using aseptic technique. jm8 04:19 No provider procedures requiring assistance completed. IV discontinued, intact, jm8 bleeding controlled. Administered Medications: No medications were administered Outcome: 03:57 Discharge ordered by . tw4 04:19 Discharged to home ambulatory. jm8 04:19 Condition: good 04:19 Discharge instructions given to patient, Instructed on discharge instructions, follow up and referral plans. Demonstrated understanding of instructions, follow-up care. 04:21 Patient left the ED. jm8 Signatures: Dispatcher [facility] EDAL Dacia Soto, RN RN bb Alex Hyde MD MD tw4 Aftab [place] cf2 Shar Rogel RN RN jm8
--- NOTE | 2021-03-09 03:58 | EDPHYS ---
Physician Documentation [facility] Name: Cecil Butterfield Age: 80 yrs Sex: Male : 1940 Arrival Date: 03/09/2021 Time: 00:20 Bed 3 Private MD: ED Physician Alex Hyde HPI: 03/09 02:48 This 80 yrs old Male presents to ER via Ambulatory with complaints of High tw4 Blood Pressure, Palpitations. 02:48 The patient has elevated blood pressure and discovered this at home. Onset: The tw4 symptoms/episode began/occurred today. Modifying factors: The symptoms are aggravated by The symptoms are alleviated by. Associated signs and symptoms: Pertinent positives: PALPITATIONS. The patient has not experienced similar symptoms in the past. Historical: - Allergies: 00:28 No Known Allergies; bb - Home Meds: 00:28 Unable to obtain [Active]; bb - PMHx: 00:28 Anemia; blood transfusion from bleeding ucler; GI Bleed; Hypertension; Ulcers; CAD; bb - PSHx: 00:28 CABG; bb - Immunization history:: Adult Immunizations up to date. - Social history:: Smoking status: Patient/guardian denies using tobacco, the patient reports quitting approximately 40 years ago. ROS: 02:48 Constitutional: Negative for fever, chills, and weight loss, Eyes: Negative for injury, tw4 pain, redness, and discharge. 02:48 Respiratory: Negative for shortness of breath, cough, wheezing, and pleuritic chest pain, Abdomen/GI: Negative for abdominal pain, nausea, vomiting, diarrhea, and constipation, Back: Negative for injury and pain, MS/Extremity: Negative for injury and deformity, Skin: Negative for injury, rash, and discoloration, Neuro: Negative for headache, weakness, numbness, tingling, and seizure. 02:48 Cardiovascular: Positive for palpitations. Exam: 02:48 Constitutional: This is a well developed, well nourished patient who is awake, alert, tw4 and in no acute distress. Head/Face: Normocephalic, atraumatic. Chest/axilla: Normal chest wall appearance and motion. Nontender with no deformity. No lesions are appreciated. Cardiovascular: Regular rate and rhythm with a normal S1 and S2. No gallops, murmurs, or rubs. Normal PMI, no JVD. No pulse deficits. Respiratory: Lungs have equal breath sounds bilaterally, clear to auscultation and percussion. No rales, rhonchi or wheezes noted. No increased work of breathing, no retractions or nasal flaring. Abdomen/GI: Soft, non-tender, with normal bowel sounds. No distension or tympany. No guarding or rebound. No evidence of tenderness throughout. Back: No spinal tenderness. No costovertebral tenderness. Full range of motion. MS/ Extremity: Pulses equal, no cyanosis. Neurovascular intact. Full, normal range of motion. Neuro: Awake and alert, GCS 15, oriented to person, place, time, and situation. Cranial nerves II-XII grossly intact. Motor strength 5/5 in all extremities. Sensory grossly intact. Cerebellar exam normal. Normal gait. Vital Signs: 00:24 BP 132 / 93; Pulse 90; Resp 16 S; Temp 97.9(TE); Pulse Ox 99% on R/A; Weight 50.8 kg bb (R); Height 5 ft. 4 in. (162.56 cm) (R); Pain 0/10; 03:13 BP 141 / 92; Pulse 55; Resp 16; Pulse Ox 99% on R/A; jm8 04:20 BP 105 / 68; Pulse 81; Resp 16; Pulse Ox 99% ; jm8 00:24 Body Mass Index 19.22 (50.80 kg, 162.56 cm) bb MDM: 00:35 Patient medically screened. tw4 07:13 Differential diagnosis: hypertensive crisis, Malignant HTN. Data reviewed: vital signs, tw4 nurses notes, EMS record. Data interpreted: Pulse oximetry:. Counseling: I had a detailed discussion with the patient and/or guardian regarding: the historical points, exam findings, and any diagnostic results supporting the discharge/admit diagnosis. Counseling: I had a detailed discussion with the patient and/or guardian regarding: the presence of at least one elevated blood pressure reading (>120/80) during this emergency department visit, lab results, radiology results. Admission orders: after a detailed discussion of the patient's condition and case, the admit orders are written by me. 03/09 01:52 Order name: Basic Metabolic Panel; Complete Time: 04:05 tw4 03/09 04:06 Interpretation: Normal except: CL 108; CRE 0.53. 03/09 01:52 Order name: CBC with Diff; Complete Time: 04:05 03/09 04:06 Interpretation: Normal except: RBC 4.02; HGB 12.1; HCT 37.3; RDW 15.5. 03/09 01:52 Order name: LFT's; Complete Time: 04:05 03/09 04:06 Interpretation: Normal except: GLOB 3.7; A/G 1.0. 03/09 01:52 Order name: Magnesium; Complete Time: 04:05 03/09 04:06 Interpretation: Within normal limits: MG 2.4. 03/09 01:52 Order name: NT PRO-BNP; Complete Time: 04:05 03/09 04:06 Interpretation: Normal except: NT PRO-BNP 924. 03/09 01:52 Order name: PT-INR; Complete Time: 04:05 03/09 04:06 Interpretation: Normal except: PT 11.6. 03/09 00:57 Order name: EKG; Complete Time: 00:58 03/09 00:57 Order name: EKG - Nurse/Tech; Complete Time: 00:57 03/09 01:52 Order name: Troponin (emerg Dept Use Only); Complete Time: 04:05 03/09 04:06 Interpretation: Within normal limits: TROPED < 0.02. 03/09 01:52 Order name: XRAY Chest (1 view) 03/09 01:52 Order name: EKG; Complete Time: 01:53 03/09 01:52 Order name: Cardiac monitoring; Complete Time: 02:18 03/09 01:52 Order name: EKG - Nurse/Tech; Complete Time: 02:18 03/09 01:52 Order name: IV Saline Lock; Complete Time: 03:02 03/09 01:52 Order name: Labs collected and sent; Complete Time: 02:25 03/09 01:52 Order name: O2 Per Protocol; Complete Time: 02:18 03/09 01:52 Order name: O2 Sat Monitoring; Complete Time: 02:18 EC:48 Rhythm is regular, Normal Sinus Rhythm with Occasional PVCs. QRS [place] is Normal. [place] tw4 interval is normal. QRS interval is normal. QT interval is normal. No Q waves. T waves are Normal. No ST changes noted. Clinical impression: NSR w/ Non-specific ST/T Changes. Interpreted by me. Reviewed by me. Administered Medications: No medications were administered Disposition: 03/09/21 03:57 Discharged to Home. Impression: Palpitations. - Condition is Stable. - Discharge Instructions: Palpitations. - Medication Reconciliation Form, Thank You Letter, Antibiotic Education, Prescription Opioid Use form. - Follow up: Private Physician; When: Upon discharge from the Emergency Department; Reason: Recheck today's complaints, Continuance of care, Re-evaluation by your physician. - Problem is new. - Symptoms have improved. Signatures: Dispatcher [employer] EDDacia Gannon RN RN Alex Bell MD MD tw4 Shar Rogel RN RN jm8 Corrections: (The following items were deleted from the chart) 04: 03:57 03/09/2021 03:57 Discharged to Home. Impression: Palpitations. Condition is jm8 Stable. Forms are Medication Reconciliation Form, Thank You Letter, Antibiotic Education, Prescription Opioid Use. Follow up: Private Physician; When: Upon discharge from the Emergency Department; Reason: Recheck today's complaints, Continuance of care, Re-evaluation by your physician. Problem is new. Symptoms have improved. tw4
[2021-03-09 04:26] VITALS: TEMP 97.9; O2SAT 99
[2021-03-09 04:30] VITALS: BP 105/68
--- NOTE | 2021-03-09 07:12 | RAD REPORT ---
EXAM DESCRIPTION: RAD - Chest Single View - 03/09/2021 2:08 am CLINICAL HISTORY: PALPITATIONS, hypertension, recent CABG surgery, tachycardia COMPARISON: Portable October 2018 TECHNIQUE: AP portable chest image was obtained 03/09/2021 2:08 am . FINDINGS: Chronic interstitial lung disease is present with no failure, infiltrate or mass identifia ble. CABG surgical changes are now evident. Heart and vasculature are normal. Minimal costophrenic an gle blunting on the left could be scarring or minimal pleural effusion. No acute bony abnormality see n. No acute aortic findings suspected. IMPRESSION: No significant cardiopulmonary finding seen. Patient may have minimal left pleural effus ion.
--- NOTE | 2021-03-09 10:26 | EKG ---
Test Date: 2021-03-09 Test Time: 00:52:05 Marine Design Engineer: MEASUREMENT RESULTS: Intervals: Rate: 87 ID: [id number] QRSD: 72 QT: 368 QTc: 442 [place]: P: 65 ID: [id number] QRS: 69 T: 69 INTERPRETIVE STATEMENTS: Sinus rhythm with occasional and consecutive premature ventricular complexes Possible Left atrial enlargement Abnormal ECG Compared to ECG 11/08/2018 01:55:05 Ventricular premature complex(es) now present Electronically Signed On 03-09-21 10:25:32 CDT by Merritt Wheeler
== END 2021-03-09 04:21 | disposition home or self-care (01) ==
LOC: ER 00:14
DX: R00.2 Palpitations (principal); I10 Essential (primary) hypertension; Z95.1 Presence of aortocoronary bypass graft
CPT/HCPCS: 36415; 71045; 80048; 80076; 83735; 83880; 84484; 85025; 85610; 93005; 99283

== ENCOUNTER 2021-10-01 05:31 | Emergency (ER) | payer MEDICARE, BC ==
--- OUTSIDE RECORDS SUMMARY | 2021-10-01 05:49 | XMS REPORT | Continuity of Care Document ---
:1940 Author Organization [facility] t Address [address] [place] [address] Care Team Providers Name Role Phone Pollo Aranda Primary Care Physician Opal CABRERA Attending Clinician Unavailable CASPER Attending Clinician Unavailable BRIAN CANNON Attending Clinician Unavailable Nurse, Pob Immunization Attending Clinician Unavailable Brian Cannon DO Attending Clinician Casper VENCES Attending Clinician Vadim ALMEIDA, A Attending Clinician Unavailable Provider, Urgent Care Attending Clinician Unavailable Syed HEALTH PRACTICE MANAGER Attending Clinician SYED Attending Clinician Unavailable Ebrahim HEALTH PRACTICE MANAGER Attending Clinician Rodrigue COLON Attending Clinician Deborah VENCES T Attending Clinician Imani WEAVERP, F Attending Clinician Doctor Unassigned, Name Attending Clinician Unavailable Only, Test Attending Clinician Unavailable Karel HEALTH PRACTICE MANAGER, L Attending Clinician Henok ALMEIDA, M Attending Clinician Michelet VENCES, S Attending Clinician Louise Sullivan MD Attending Clinician Yanely VENCES Attending Clinician Sandie Stevens MD Attending Clinician Jesus TAFOYA Attending Clinician Unavailable Jed COREAS Attending Clinician Unavailable Opal CABRERA Admitting Clinician Unavailable Rodrigue COLON Admitting Clinician Opal Cabrera MD Admitting Clinician Yanely VENCES Admitting Clinician Payers Payer Name Policy Type Policy Number Effective Date Expiration Date Jesus ann [facility] TR[facility] [id number] 2017 00:00:00 MEDICARE PART A \\T\\ [id number] 2004 B 00:00:00 Problems Condition Condition Condition Status Onset Resolution Last Treating Co mments Source Name Details Category Date Date Treatment Clinician Date FRIED FRIED Disease Active Univers (dyspnea (dyspnea 6-06 ity of on on 00:00: [place] exertion) exertion) 00 [place] joana Branch Essential Essential Disease Active Uni vers hypertensi hypertensi 6-06 it y of on on 00:00: [place] 00 Medical Branch Dyslipidem Dyslipidem Disease Active U nivers ia ia 6-06 ity of 00:00: [place] 00 Medical Branch S/P CABG x S/P CABG x Disease Active U nivers 3 3 4-28 ity of 00:00: [place] 00 Medical Branch Coronary Coronary Disease Active Overview: Un mark artery artery 4-19 [place] ity of disease of disease of 00:00: g of this [place] 00 note Medical artery of artery of might be [place] different heart with heart with from the stable stable original. angina angina Added pectoris pectoris automatic ally from request for surgery [id number] Chest pain Chest pain Disease Active U nivers 4-14 ity of 00:00: [place] 00 Medical Branch NSTEMI NSTEMI Disease Active Univers (non-ST (non-ST 4-14 ity of elevated elevated 00:00: [place] myocardial myocardial 00 Me dical infarction infarction Br anch ) ) Iron Iron Disease Active Overview: Univer s deficiency deficiency 4-13 [place] ity of anemia, anemia, 00:00: g of this [place] unspecifie unspecifie 00 note Me dical d iron d iron might be Branch deficiency deficiency different anemia anemia from the type type original. Added automatic ally from request for surgery [id number] No known No known Disease Unive rs active active ity of problems problems [facility] Allergies, Adverse Reactions, Alerts Allergy Allergy Status Severity Reaction(s) Onset Inactive Treating Comm ents Source Name Type Date Date Clinician NO KNOWN Drug Active Univers ALLERGIE Class ity of S [facility] Social History Social Habit Start Date Stop Date Quantity Comments Source History SDOH [facility] o f [facility] SDOH University o f Alcohol Std Drinks [facility] Branch History [place] University o f Alcohol Binge [facility] al [place] Exposure to Not sure [facility] SARS-CoV-2 (event) [facility] History of tobacco Cigarette Smoker University of use [facility] Alcohol intake 2021-04-06 2021-04-06 Current drinker Unive rsity of 00:00:00 00:00:00 of alcohol [facility] (finding) Branch Cigarettes smoked 2021-01-18 2021-01-18 Univers ity of current (pack per 00:00:00 00:00:00 [facility] ) - Reported Branch Cigarette 2021-01-18 2021-01-18 University of pack-years 00:00:00 00:00:00 [facility] Tobacco use and 2021-01-18 2021-01-18 Never used Universit y of exposure 00:00:00 00:00:00 [facility] Alcohol Comment 2021-01-06 2021-01-06 socially Universit y of 00:00:00 00:00:00 [facility] Sex Assigned At [birth year] Universit y of 00:00:00 00:00:00 [facility] Smoking Status Start Date Stop Date Source Former smoker 2021-01-21 00:00:00 2021-01-21 00:00:00 Universi ty of [facility] Current every day 2021-01-11 00:00:00 [facility] smoker Medical Branch Unknown if ever smoked [facility] y [facility] Medications Ordered Filled Start Stop Current Ordering Indication Dosage Frequency Signature Comments Components Source Medication Medication Date Date Medication? Clinician (SIG) Name Name atorvastati Yes [id number] 80mg Take 1 Univers n 80 mg 7-13 tablet by ity of tablet 00:00: mouth at [place] 00 bedtime. Medical Branch clopidogreL 2020-0 Yes [id number] 75mg Take 1 Univers 75 mg 7-13 tablet by ity of tablet 00:00: mouth [place] 00 daily. Medical Branch metoprolol 2020-0 Yes [id number] 25mg Take 1 Univers tartrate 25 7-13 tablet by ity of mg tablet 00:00: mouth [place] 00 every 12 Medical (twelve) Branch hours. atorvastati 2020-0 Yes [id number] 80mg Take 1 Univers n 80 mg 7-13 tablet by ity of tablet 00:00: mouth at [place] 00 bedtime. Medical Branch clopidogreL 2020-0 Yes [id number] 75mg Take 1 Univers 75 mg 7-13 tablet by ity of tablet 00:00: mouth [place] 00 daily. Medical Branch metoprolol 2020-0 Yes [id number] 25mg Take 1 Univers tartrate 25 7-13 tablet by ity of mg tablet 00:00: mouth [place] 00 every 12 Medical (twelve) Branch hours. atorvastati 2020-0 Yes [id number] 80mg Take 1 Univers n 80 mg 7-13 tablet by ity of tablet 00:00: mouth at [place] 00 bedtime. Medical Branch clopidogreL 2020-0 Yes [id number] 75mg Take 1 Univers 75 mg 7-13 tablet by ity of tablet 00:00: mouth [place] 00 daily. Medical Branch metoprolol 2020-0 Yes [id number] 25mg Take 1 Univers tartrate 25 7-13 tablet by ity of mg tablet 00:00: mouth [place] 00 every 12 Medical (twelve) Branch hours. clindamycin 2020-2020- No [id number] 300mg Take 1 Univers 300 mg 02-23 [id number] capsule by ity of capsule 00:00: 04:59 mouth 4 [place] 00 :00 (four) Medical times Branch daily for 7 days. clindamycin 2020-2020- No [id number] 300mg Take 1 Univers 300 mg 02-23 [id number] capsule by ity of capsule 00:00: 04:59 mouth 4 [place] 00 :00 (four) Medical times Branch daily for 7 days. clindamycin 2020-2020- No [id number] 300mg Take 1 Univers 300 mg 02-23 [id number] capsule by ity of capsule 00:00: 04:59 mouth 4 [place] 00 :00 (four) Medical times [place] daily for 7 days. pantoprazol 0 Yes 40mg 40 mg, Univ ers e 5-31 Oral, ity of (PROTONIX) 14:00: DAILY, [place] EC tablet 00 First dose Medi joana 40 mg on [facility] 02/22/21 at 0900, Until Discontinu ed, Routine atorvastati 0 Yes 80mg 80 mg, Univ ers n (LIPITOR) 5-31 Oral, QHS, it y of tablet 80 02:00: First dose [place] mg 00 on [facility] 02/21/21 at Branch 2100, Until Discontinu ed, Routine zolpidem 0 Yes 5mg 5 mg, Univers (AMBIEN) 5-31 Oral, QHS, ity o f tablet 5 mg 02:00: First dose [place] 00 on [facility] 02/21/21 at Branch 2100, Until Discontinu ed, Routine ferrous 0 Yes 325mg 325 mg, Univer s sulfate 5-30 Oral, ity of tablet 325 21:30: BIDAC, [place] mg 00 First dose Medical on Pending Sale To [facility] 02/21/21 at 1630, Until Discontinu ed, Routine metoprolol Yes 25mg 25 mg, Unive rs tartrate 5-30 Oral, ity of (LOPRESSOR) 15:00: Q12H, [place] tablet 25 00 First dose Medi joana mg on Pending Sale To [facility] 02/21/21 at 1000, Until Discontinu ed, Routine clopidogreL 0 Yes 75mg 75 mg, Univ ers (PLAVIX) 5-30 Oral, ity of tablet 75 14:30: DAILY, [place] mg 00 First dose Medical on Pending Sale To [facility] 02/21/21 at 0930, Until Discontinu ed, Routine aspirin 2020-0 Yes 81mg 81 mg, Univers chewable 5-30 Oral, ity of tablet 81 14:30: DAILY, [place] mg 00 First dose Medical on Pending Sale To [facility] 02/21/21 at 0930, Until Discontinu ed, Routine enoxaparin 0 Yes 40mg 40 mg, Unive rs (LOVENOX) 5-30 Subcutaneo ity of injection 14:00: us, DAILY, [place] 40 mg 00 First dose Medical on Pending Sale To [facility] 02/21/21 at 0900, Until Discontinu ed, Routine furosemide 2020- No 40mg 40 mg, Univ ers (LASIX) 02-21 Slow IV ity of injection 14:00: 13:54 Push, [place] 40 mg 00 :00 ONCE, 1 Medical dose, Pending Sale To [facility] 02/21/21 at 0900, Routine traMADoL Yes 50mg 50 mg, Univers (ULTRAM) 02-21 Oral, ity of tablet 50 12:01: Q4HPRN, [place] mg 43 Starting Medical Pending Sale To [facility] 02/21/21 at 0701, Until Discontinu ed, Routine, Pain (scale 4-6) cyclobenzap 2020- No 10mg 10 mg, Uni vers rine 02-21 Oral, ity of (FLEXERIL) 04:00: 03:19 ONCE, 1 [place] tablet 10 00 :00 dose, Sat Medic al mg 02/20/21 at Branch 2300, Routine nitroglycer Yes .4mg 0.4 mg, Uni vers in 02-21 Sublingual ity of (NITROSTAT) 02:54: , Q5MIN [place] sublingual 54 PRN, Medical tablet 0.4 Starting Branc h mg 02/20/21 at 2154, Until Discontinu ed, Routine, Chest pain iopamidol 2020- No [id number] 100mL 100 mL, Univers (ISOVUE 02-21 Intravenou ity o f 370-500 mL) 00:45: 00:25 s, ONCE, 1 [place] injection 00 :00 dose, Sat Medic al 100 mL 02/20/21 at Branch 1945, Routine acetaminoph Yes 650mg 650 mg, Un mark en 02-20 Oral, ity of (TYLENOL) 23:57: Q6HPRN, [place] tablet 650 35 Starting Medic al mg Sat [place] 02/20/21 at 1857, Until Discontinu ed, Routine, Pain (scale 1-3) acetaminoph 2020- No 1000mg 1,000 mg, Univers en 01-30 05-08 Oral, ity of (TYLENOL) 22:00: 21:11 ONCE, 1 [place] tablet 00 :00 dose, Sat Medical 1,000 mg 01/30/21 at Branch 1700, Routine mupirocin 2 2020-0 Yes [id number] Apply to Univers % ointment 5-08 area(s) 3 ity of 00:00: (three) [place] 00 times Medical daily. Branch mupirocin 2 2020-0 Yes [id number] Apply to Univers % ointment 5-08 area(s) 3 ity of 00:00: (three) [place] 00 times Medical daily. Branch mupirocin 2 2020-0 Yes [id number] Apply to Univers % ointment 5-08 area(s) 3 ity of 00:00: (three) [place] 00 times Medical daily. Branch mupirocin 2 2020-0 Yes [id number] Apply to Univers % ointment 5-08 area(s) 3 ity of 00:00: (three) [place] 00 times Medical daily. Branch mupirocin 2 2020-0 Yes [id number] Apply to Univers % ointment 5-08 area(s) 3 ity of 00:00: (three) [place] 00 times Medical daily. Branch mupirocin 2 2020-0 Yes [id number] Apply to Univers % ointment 5-08 area(s) 3 ity of 00:00: (three) [place] 00 times Medical daily. Branch mupirocin 2 2020-0 Yes [id number] Apply to Univers % ointment 5-08 area(s) 3 ity of 00:00: (three) [place] 00 times Medical daily. Branch mupirocin 2 2020-0 Yes [id number] Apply to Univers % ointment 5-08 area(s) 3 ity of 00:00: (three) [place] 00 times Medical daily. Branch mupirocin 2 2020-0 Yes [id number] Apply to Univers % ointment 5-08 area(s) 3 ity of 00:00: (three) [place] 00 times Medical daily. Branch mupirocin 2 1-0 Yes [id number] Apply to Univers % ointment 5-08 area(s) 3 ity of 00:00: (three) [place] 00 times Medical daily. Branch mupirocin 2 2020-0 Yes [id number] Apply to Univers % ointment 5-08 area(s) 3 ity of 00:00: (three) [place] 00 times Medical daily. Branch aspirin 81 2020- No [id number] 81mg Take 1 Univers mg chewable 5-06 08-05 tablet by it y of tablet 00:00: 04:59 mouth [place] 00 :00 daily for Medical 90 days. Branch atorvastati 2020- No [id number] 80mg Take 1 Univers n 80 mg 5-06 08-05 tablet by ity of tablet 00:00: 04:59 mouth at [place] 00 :00 bedtime Medical for 90 Branch days. clopidogreL 2020-2020- No [id number] 75mg Take 1 Univers 75 mg 5-06 08-05 tablet by ity of tablet 00:00: 04:59 mouth [place] 00 :00 daily for Medical 90 days. Branch metoprolol 2020-2020- No [id number] 25mg Take 1 Univers tartrate 25 5- 08-05 tablet by it y of mg tablet 00:00: 04:59 mouth [place] 00 :00 every 12 Medical (twelve) Branch hours for 90 days. aspirin 81 2020- No [id number] 81mg Take 1 Univers mg chewable 5- 08-05 tablet by it y of tablet 00:00: 04:59 mouth [place] 00 :00 daily for Medical 90 days. Branch atorvastati 2020- No [id number] 80mg Take 1 Univers n 80 mg 5-06 08-05 tablet by ity of tablet 00:00: 04:59 mouth at [place] 00 :00 bedtime Medical for 90 Branch days. clopidogreL 2020-2020- No [id number] 75mg Take 1 Univers 75 mg 5-06 08-05 tablet by ity of tablet 00:00: 04:59 mouth [place] 00 :00 daily for Medical 90 days. Branch metoprolol 2020- No [id number] 25mg Take 1 Univers tartrate 25 5-06 08-05 tablet by it y of mg tablet 00:00: 04:59 mouth [place] 00 :00 every 12 Medical (twelve) Branch hours for 90 days. aspirin 81 2020- No [id number] 81mg Take 1 Univers mg chewable 5-06 08-05 tablet by it y of tablet 00:00: 04:59 mouth [place] 00 :00 daily for Medical 90 days. Branch atorvastati 2020- No [id number] 80mg Take 1 Univers n 80 mg 5- 08-05 tablet by ity of tablet 00:00: 04:59 mouth at [place] 00 :00 bedtime Medical for 90 Branch days. clopidogreL 2020- No [id number] 75mg Take 1 Univers 75 mg 5- 08-05 tablet by ity of tablet 00:00: 04:59 mouth [place] 00 :00 daily for Medical 90 days. Branch metoprolol 2020- No [id number] 25mg Take 1 Univers tartrate 25 01-28-05 tablet by it y of mg tablet 00:00: 04:59 mouth [place] 00 :00 every 12 Medical (twelve) Branch hours for 90 days. aspirin 81 2020- No [id number] 81mg Take 1 Univers mg chewable 01-28-05 tablet by it y of tablet 00:00: 04:59 mouth [place] 00 :00 daily for Medical 90 days. Branch atorvastati 2020- No [id number] 80mg Take 1 Univers n 80 mg 01-28-05 tablet by ity of tablet 00:00: 04:59 mouth at [place] 00 :00 bedtime Medical for 90 Branch days. clopidogreL 2020- No [id number] 75mg Take 1 Univers 75 mg 01-28-05 tablet by ity of tablet 00:00: 04:59 mouth [place] 00 :00 daily for Medical 90 days. Branch metoprolol 2020- No [id number] 25mg Take 1 Univers tartrate 25 01-28-05 tablet by it y of mg tablet 00:00: 04:59 mouth [place] 00 :00 every 12 Medical (twelve) Branch hours for 90 days. aspirin 81 2020- No [id number] 81mg Take 1 Univers mg chewable 01-28 08-05 tablet by it y of tablet 00:00: 04:59 mouth [place] 00 :00 daily for Medical 90 days. Branch atorvastati 2020- No [id number] 80mg Take 1 Univers n 80 mg 5- 08-05 tablet by ity of tablet 00:00: 04:59 mouth at [place] 00 :00 bedtime Medical for 90 Branch days. clopidogreL 2020- No [id number] 75mg Take 1 Univers 75 mg 5-06 08-05 tablet by ity of tablet 00:00: 04:59 mouth [place] 00 :00 daily for Medical 90 days. Branch metoprolol 2020- No [id number] 25mg Take 1 Univers tartrate 25 5-06 08-05 tablet by it y of mg tablet 00:00: 04:59 mouth [place] 00 :00 every 12 Medical (twelve) Branch hours for 90 days. aspirin 81 2020- No [id number] 81mg Take 1 Univers mg chewable 5- 08-05 tablet by it y of tablet 00:00: 04:59 mouth [place] 00 :00 daily for Medical 90 days. Branch aspirin 81 2020- No [id number] 81mg Take 1 Univers mg chewable 5-06 08-05 tablet by it y of tablet 00:00: 04:59 mouth [place] 00 :00 daily for Medical 90 days. Branch aspirin 81 2020- No [id number] 81mg Take 1 Univers mg chewable 5- 08-05 tablet by it y of tablet 00:00: 04:59 mouth [place] 00 :00 daily for Medical 90 days. Branch atorvastati 2020- No [id number] 80mg Take 1 Univers n 80 mg 5- 08-05 tablet by ity of tablet 00:00: 04:59 mouth at [place] 00 :00 bedtime Medical for 90 Branch days. clopidogreL 2020- No [id number] 75mg Take 1 Univers 75 mg 5-06 08-05 tablet by ity of tablet 00:00: 04:59 mouth [place] 00 :00 daily for Medical 90 days. Branch metoprolol 2020- No [id number] 25mg Take 1 Univers tartrate 25 5-06 08-05 tablet by it y of mg tablet 00:00: 04:59 mouth [place] 00 :00 every 12 Medical (twelve) Branch hours for 90 days. aspirin 81 2020- No [id number] 81mg Take 1 Univers mg chewable 5-06 08-05 tablet by it y of tablet 00:00: 04:59 mouth [place] 00 :00 daily for Medical 90 days. Branch atorvastati 2020- No [id number] 80mg Take 1 Univers n 80 mg 5-06 08-05 tablet by ity of tablet 00:00: 04:59 mouth at [place] 00 :00 bedtime Medical for 90 Branch days. clopidogreL 2020-2020- No [id number] 75mg Take 1 Univers 75 mg 5-06 08-05 tablet by ity of tablet 00:00: 04:59 mouth [place] 00 :00 daily for Medical 90 days. Branch metoprolol 2020- No [id number] 25mg Take 1 Univers tartrate 25 5-06 08-05 tablet by it y of mg tablet 00:00: 04:59 mouth [place] 00 :00 every 12 Medical (twelve) Branch hours for 90 days. aspirin 81 2020- No [id number] 81mg Take 1 Univers mg chewable 5-06 08-05 tablet by it y of tablet 00:00: 04:59 mouth [place] 00 :00 daily for Medical 90 days. Branch atorvastati 2020- No [id number] 80mg Take 1 Univers n 80 mg 5-06 08-05 tablet by ity of tablet 00:00: 04:59 mouth at [place] 00 :00 bedtime Medical for 90 Branch days. clopidogreL 2020- No [id number] 75mg Take 1 Univers 75 mg 5-06 08-05 tablet by ity of tablet 00:00: 04:59 mouth [place] 00 :00 daily for Medical 90 days. Branch metoprolol 2020- No [id number] 25mg Take 1 Univers tartrate 25 5-06 08-05 tablet by it y of mg tablet 00:00: 04:59 mouth [place] 00 :00 every 12 Medical (twelve) Branch hours for 90 days. aspirin 81 2020- No [id number] 81mg Take 1 Univers mg chewable 5-06 08-05 tablet by it y of tablet 00:00: 04:59 mouth [place] 00 :00 daily for Medical 90 days. Branch atorvastati 2020- No [id number] 80mg Take 1 Univers n 80 mg 5-06 08-05 tablet by ity of tablet 00:00: 04:59 mouth at [place] 00 :00 bedtime Medical for 90 Branch days. clopidogreL 2020-2020- No [id number] 75mg Take 1 Univers 75 mg 5-06 08-05 tablet by ity of tablet 00:00: 04:59 mouth [place] 00 :00 daily for Medical 90 days. Branch metoprolol 2020- No [id number] 25mg Take 1 Univers tartrate 25 5- 08-05 tablet by it y of mg tablet 00:00: 04:59 mouth [place] 00 :00 every 12 Medical (twelve) Branch hours for 90 days. aspirin 81 2020- No [id number] 81mg Take 1 Univers mg chewable 5- 08-05 tablet by it y of tablet 00:00: 04:59 mouth [place] 00 :00 daily for Medical 90 days. Branch atorvastati 2020- No [id number] 80mg Take 1 Univers n 80 mg 5- 08-05 tablet by ity of tablet 00:00: 04:59 mouth at [place] 00 :00 bedtime Medical for 90 Branch days. aspirin 81 2020- No S/P CABG x 81mg Take 1 Univers mg chewable 5- 08-05 3 tablet by it y of tablet 00:00: 04:59 mouth [place] 00 :00 daily for Medical 90 days. Branch clopidogreL 2020- No [id number] 75mg Take 1 Univers 75 mg 5- 08-05 tablet by ity of tablet 00:00: 04:59 mouth [place] 00 :00 daily for Medical 90 days. Branch metoprolol 2020- No [id number] 25mg Take 1 Univers tartrate 25 5- 08-05 tablet by it y of mg tablet 00:00: 04:59 mouth [place] 00 :00 every 12 Medical (twelve) Branch hours for 90 days. aspirin 81 2020- No [id number] 81mg Take 1 Univers mg chewable 5- 08-05 tablet by it y of tablet 00:00: 04:59 mouth [place] 00 :00 daily for Medical 90 days. Branch atorvastati 2020- No [id number] 80mg Take 1 Univers n 80 mg 5-06 08-05 tablet by ity of tablet 00:00: 04:59 mouth at [place] 00 :00 bedtime Medical for 90 Branch days. clopidogreL 2020-2020- No [id number] 75mg Take 1 Univers 75 mg 5-06 08-05 tablet by ity of tablet 00:00: 04:59 mouth [place] 00 :00 daily for Medical 90 days. Branch metoprolol 2020- No [id number] 25mg Take 1 Univers tartrate 25 01-28-05 tablet by it y of mg tablet 00:00: 04:59 mouth [place] 00 :00 every 12 Medical (twelve) Branch hours for 90 days. atorvastati 2020- No S/P CABG x 80mg Take 1 Univers n 80 mg 5- 3 tablet by ity of tablet 00:00: 04:59 mouth at [place] 00 :00 bedtime Medical for 90 Branch days. clopidogreL 2020- No S/P CABG x 75mg Take 1 Univers 75 mg 01-28-05 3 tablet by ity of tablet 00:00: 04:59 mouth [place] 00 :00 daily for Medical 90 days. Branch metoprolol 2020- No S/P CABG x 25mg Take 1 Univers tartrate 25 01-28- 3 tablet by it y of mg tablet 00:00: 04:59 mouth [place] 00 :00 every 12 Medical (twelve) Branch hours for 90 days. atorvastati 2020- No [id number] 80mg Take 1 Univers n 80 mg 01-28-13 tablet by ity of tablet 00:00: 00:00 mouth at [place] 00 :00 bedtime Medical for 90 Branch days. clopidogreL 2020- No [id number] 75mg Take 1 Univers 75 mg 01-28-13 tablet by ity of tablet 00:00: 00:00 mouth [place] 00 :00 daily for Medical 90 days. [place] metoprolol 2020- No [id number] 25mg Take 1 Univers tartrate 25 01-28- tablet by it y of mg tablet 00:00: 00:00 mouth [place] 00 :00 every 12 Medical (twelve) Branch hours for 90 days. atorvastati 2020- No [id number] 80mg Take 1 Univers n 80 mg 01-28-13 tablet by ity of tablet 00:00: 00:00 mouth at [place] 00 :00 bedtime Medical for 90 Branch days. clopidogreL 2020- No [id number] 75mg Take 1 Univers 75 mg -03 01-13 tablet by ity of tablet 00:00: 00:00 mouth [place] 00 :00 daily for Medical 90 days. Branch metoprolol 2020- No [id number] 25mg Take 1 Univers tartrate 25 01-28 tablet by it y of mg tablet 00:00: 00:00 mouth [place] 00 :00 every 12 Medical (twelve) Branch hours for 90 days. pantoprazol 2020- No [id number] 40mg Take 1 Univers e 40 mg EC 01-28 tablet by ity of tablet 00:00: 04:59 mouth [place] 00 :00 daily for Medical 30 days. Branch acetaminoph 2020- No [id number] 650mg Take 2 Univers en 325 mg 01-28 tablets by ity of tablet 00:00: 04:59 mouth [place] 00 :00 every 6 Medical (six) Branch hours as needed for Temp > 38.5 C for up to 30 days. ferrous 2020- No [id number] 325mg Take 1 U nivers sulfate 325 01-28 tablet by it y of mg (65 mg 00:00: 04:59 mouth 2 [place] iron[place] 00 :00 (two) Medical tablet times Branch daily before breakfast and dinner for 30 days. pantoprazol 2020- No [id number] 40mg Take 1 Univers e 40 mg EC 01-28 tablet by ity of tablet 00:00: 04:59 mouth [place] 00 :00 daily for Medical 30 days. Branch acetaminoph 2020- No [id number] 650mg Take 2 Univers en 325 mg 01-28 tablets by ity of tablet 00:00: 04:59 mouth [place] 00 :00 every 6 Medical (six) Branch hours as needed for Temp > 38.5 C for up to 30 days. ferrous 2020- No [id number] 325mg Take 1 U nivers sulfate 325 01-28 tablet by it y of mg (65 mg 00:00: 04:59 mouth 2 [place] iron) 00 :00 (two) Medical tablet times Branch daily before breakfast and dinner for 30 days. pantoprazol 2020- No [id number] 40mg Take 1 Univers e 40 mg EC 01-28 tablet by ity of tablet 00:00: 04:59 mouth [place] 00 :00 daily for Medical 30 days. Branch acetaminoph 2020- No [id number] 650mg Take 2 Univers en 325 mg 01-28 tablets by ity of tablet 00:00: 04:59 mouth [place] 00 :00 every 6 Medical (six) Branch hours as needed for Temp > 38.5 C for up to 30 days. ferrous 2020- No [id number] 325mg Take 1 U nivers sulfate 325 01-28 tablet by it y of mg (65 mg 00:00: 04:59 mouth 2 [place] iron) 00 :00 (two) Medical tablet times Branch daily before breakfast and dinner for 30 days. pantoprazol 2020- No [id number] 40mg Take 1 Univers e 40 mg EC 01-28 tablet by ity of tablet 00:00: 04:59 mouth [place] 00 :00 daily for Medical 30 days. Branch acetaminoph 2020- No [id number] 650mg Take 2 Univers en 325 mg 01-28 tablets by ity of tablet 00:00: 04:59 mouth [place] 00 :00 every 6 Medical (six) Branch hours as needed for Temp > 38.5 C for up to 30 days. ferrous 2020- No [id number] 325mg Take 1 U nivers sulfate 325 01-28 tablet by it y of mg (65 mg 00:00: 04:59 mouth 2 [place] iron) 00 :00 (two) Medical tablet times Branch daily before breakfast and dinner for 30 days. pantoprazol 2020- No [id number] 40mg Take 1 Univers e 40 mg EC 01-28 tablet by ity of tablet 00:00: 04:59 mouth [place] 00 :00 daily for Medical 30 days. Branch acetaminoph 2020- No [id number] 650mg Take 2 Univers en 325 mg 01-28 tablets by ity of tablet 00:00: 04:59 mouth [place] 00 :00 every 6 Medical (six) Branch hours as needed for Temp > 38.5 C for up to 30 days. ferrous 2020- No [id number] 325mg Take 1 U nivers sulfate 325 01-28 tablet by it y of mg (65 mg 00:00: 04:59 mouth 2 [place] iron) 00 :00 (two) Medical tablet times Branch daily before breakfast and dinner for 30 days. pantoprazol 2020- No [id number] 40mg Take 1 Univers e 40 mg EC 01-28 tablet by ity of tablet 00:00: 04:59 mouth [place] 00 :00 daily for Medical 30 days. Branch acetaminoph 2020- No [id number] 650mg Take 2 [facility] en 325 mg 01-28 tablets by ity of tablet 00:00: 04:59 mouth [place] 00 :00 every 6 Medical (six) Branch hours as needed for Temp > 38.5 C for up to 30 days. ferrous 2020- No [id number] 325mg Take 1 U nivers sulfate 325 01-28 tablet by it y of mg (65 mg 00:00: 04:59 [place] iron[place] 00 :00 (two) Medical tablet times Branch daily before breakfast and dinner for 30 days. pantoprazol 2020- No [id number] 40mg Take 1 [facility] e 40 mg EC 01-28 tablet by ity of tablet 00:00: 04:59 mouth [place] 00 :00 daily for Medical 30 days. Branch acetaminoph No [id number] 650mg Take 2 [facility] en 325 mg 01-28 tablets by ity of tablet 00:00: 04:59 mouth [place] 00 :00 every 6 Medical (six) Branch hours as needed for Temp > 38.5 C for up to 30 days. ferrous 2020- No [id number] 325mg Take 1 U nivers sulfate 325 01-28 tablet by it y of mg (65 mg 00:00: 04:59 [place] 00 :00 (two) Medical tablet times Branch daily before breakfast and dinner for 30 days. pantoprazol 2020- No [id number] 40mg Take 1 [facility] e 40 mg EC 01-28 tablet by ity of tablet 00:00: 04:59 mouth [place] 00 :00 daily for Medical 30 days. Branch acetaminoph 2020- No [id number] 650mg Take 2 [facility] en 325 mg 01-28 tablets by ity of tablet 00:00: 04:59 mouth [place] 00 :00 every 6 Medical (six) Branch hours as needed for Temp > 38.5 C for up to 30 days. ferrous No [id number] 325mg Take 1 U nivers sulfate 325 01-28 tablet by it y of mg (65 mg 00:00: 04:59 [place] 00 :00 (two) Medical tablet times Branch daily before breakfast and dinner for 30 days. pantoprazol No [id number] 40mg Take 1 [facility] e 40 mg EC 01-28 tablet by ity of tablet 00:00: 04:59 mouth [place] 00 :00 daily for Medical 30 days. Branch acetaminoph No [id number] 650mg Take 2 [facility] en 325 mg 01-28 tablets by ity of tablet 00:00: 04:59 mouth [place] 00 :00 every 6 Medical (six) Branch hours as needed for Temp > 38.5 C for up to 30 days. ferrous No [id number] 325mg Take 1 U nivers sulfate 325 01-28 tablet by it y of mg (65 mg 00:00: 04:59 mouth [place] 00 :00 (two) Medical tablet times Branch daily before breakfast and dinner for 30 days. pantoprazol 2020- No [id number] 40mg Take 1 [facility] e 40 mg EC 01-28 tablet by ity of tablet 00:00: 04:59 mouth [place] 00 :00 daily for Medical 30 days. Branch pantoprazol 2020- No S/P CABG x 40mg Take 1 [facility] e 40 mg EC 01-28 3 tablet by ity of tablet 00:00: 04:59 mouth [place] 00 :00 daily for Medical 30 days. Branch acetaminoph No [id number] 650mg Take 2 [facility] en 325 mg 01-28 tablets by ity of tablet 00:00: 04:59 mouth [place] 00 :00 every 6 Medical (six) Branch hours as needed for Temp > 38.5 C for up to 30 days. ferrous No [id number] 325mg Take 1 U nivers sulfate 325 01-28 tablet by it y of mg (65 mg 00:00: 04:59 mouth [place] 00 :00 (two) Medical tablet times Branch daily before breakfast and dinner for 30 days. pantoprazol No [id number] 40mg Take 1 [facility] e 40 mg EC 01-28 tablet by ity of tablet 00:00: 04:59 mouth [place] 00 :00 daily for Medical 30 days. Branch acetaminoph No [id number] 650mg Take 2 [facility] en 325 mg 01-28 tablets by ity of tablet 00:00: 04:59 mouth [place] 00 :00 every 6 Medical (six) Branch hours as needed for Temp > 38.5 C for up to 30 days. ferrous [id number] 325mg Take 1 U nivers sulfate 325 01-28 tablet by it y of mg (65 mg 00:00: 04:59 mouth [place] 00 :00 (two) Medical tablet times Branch daily before breakfast and dinner for 30 days. acetaminoph No S/P CABG x 650mg Take 2 [facility] en 325 mg 01-28 3 tablets by ity of tablet 00:00: 04:59 mouth [place] 00 :00 every 6 Medical (six) Branch hours as needed for Temp > 38.5 C for up to 30 days. ferrous No S/P CABG x 325mg Take 1 [facility] sulfate 325 01-28 3 tablet by it y of mg (65 mg 00:00: 04:59 mouth [place] iron[place] 00 :00 (two) Medical tablet times Branch daily before breakfast and dinner for 30 days. acetaminoph 2020- No 4647 1{tbl} Take 1 U nivers en-codeine 01-28-14 tablet by ity of 300-30 mg 00:00: 04:59 mouth [place] tablet 00 :00 every 6 Medical (six) Branch hours as needed for Pain (scale 7-10) for up to 7 days. Indication s: acute pain acetaminoph No 4647 1{tbl} Take 1 U nivers en-codeine 5-06 05-14 tablet by ity of 300-30 mg 00:00: 04:59 mouth [place] tablet 00 :00 every 6 Medical (six) Branch hours as needed for Pain (scale 7-10) for up to 7 days. Indication s: acute pain acetaminoph 2020- No 4647 1{tbl} Take 1 U nivers en-codeine 5-06 05-14 tablet by ity of 300-30 mg 00:00: 04:59 mouth [place] tablet 00 :00 every 6 Medical (six) Branch hours as needed for Pain (scale 7-10) for up to 7 days. Indication s: acute pain acetaminoph 2020- No 4647 1{tbl} Take 1 U nivers en-codeine 5-06 05-14 tablet by ity of 300-30 mg 00:00: 04:59 mouth [place] tablet 00 :00 every 6 Medical (six) Branch hours as needed for Pain (scale 7-10) for up to 7 days. Indication s: acute pain acetaminoph 2020- No 4647 1{tbl} Take 1 U nivers en-codeine 5-06 05-14 tablet by ity of 300-30 mg 00:00: 04:59 mouth [place] tablet 00 :00 every 6 Medical (six) Branch hours as needed for Pain (scale 7-10) for up to 7 days. Indication s: acute pain acetaminoph 2020- No acute pain 1{tbl} Take 1 [facility] en-codeine 5-06 05-14 tablet by ity of 300-30 mg 00:00: [...] Mon01/26/21 at 0800, Until Discontinu ed, Routine metoprolol Yes 25mg 25 mg, Unive rs tartrate 5-04 Oral, ity of (LOPRESSOR) 13:00: Q12H, [place] tablet 25 00 First dose Medi joana mg (after [place] last modificati on) on Mon01/26/21 at 0800, Until Discontinu ed, Routine potassium No 44meq 44 mEq, IV Univers phosphate 5-12 28- Piggyback, ity of 44 mEq in 11:08: 12:56 ONCE, 1 [place] NaCl 0.9% 00 :00 dose, [facility] (NS) 250 mL 01/26/21 at [facility] piggyback 0615, 250 mL potassium No 44meq 44 mEq, IV Univers phosphate 5-12 28- Piggyback, ity of 44 mEq in 11:08: 12:56 ONCE, 1 [place] NaCl 0.9% 00 :00 dose, Tue Medic al (NS) 250 mL 01/26/21 at [facility] piggyback 0615, 250 mL metoprolol No 12.5mg 12.5 mg, Univers tartrate 01-26-04 Oral, ity of (LOPRESSOR) 04:45: 04:33 ONCE, 1 [place] half tablet 00 :00 dose, Mon Med ical 12.5 mg 01/25/21 at Branch 2345, Routine metoprolol No 12.5mg 12.5 mg, Univers tartrate -12 28-04 Oral, ity of (LOPRESSOR) 04:45: 04:33 ONCE, 1 [place] half tablet 00 :00 dose, Mon Med ical 12.5 mg 01/25/21 at [place] 2345, Routine metoprolol 2020- No 12.5mg 12.5 mg, Univers succinate - 05-03 Oral, ity of XL (TOPROL 14:00: 12:04 DAILY, [place] XL[place] tablet 00 :59 First dose Med ical 12.5 mg on Mon01/25/21 at 0900, Until Discontinu ed, Routine metoprolol 2020- No 12.5mg 12.5 mg, Univers succinate 5- 05-03 Oral, ity of XL (TOPROL 14:00: 12:04 DAILY, [place] XL[place] tablet 00 :59 First dose Med ical 12.5 mg on Mon Branch 01/25/21 at 0900, Until Discontinu ed, Routine metoprolol 2020- No 12.5mg 12.5 mg, Univers tartrate 01-25 Oral, ONCE ity of (LOPRESSOR) 12:14: 13:06 NOW, 1 [place] half tablet 00 :00 dose, Mon Med ical 12.5 mg 01/25/21 at Branch 0715, Routine metoprolol No 12.5mg 12.5 mg, Univers tartrate 01-25 Oral, ONCE ity of (LOPRESSOR) 12:14: 13:06 NOW, 1 [place] half tablet 00 :00 dose, Mon Med ical 12.5 mg 01/25/21 at Branch 0715, Routine polyethylen No 17g 17 g, Univ ers e glycol 01-25 Oral, ity of 3350 powder 05:00: 11:00 ONCE, 1 [place] 17 g 00 :00 dose, [facility] 01/25/21 at Branch 0000, Routine polyethylen 2020- No 17g 17 g, Univ ers e glycol 01-25 Oral, ity of 3350 powder 05:00: 11:00 ONCE, 1 [place] 17 g 00 :00 dose, [facility] 01/25/21 at Branch 0000, Routine albumin No 12.5g 12.5 g, IV Un mark (ALBUMINAR- 01-24 Infusion, it y of 5) 5 % 20:15: 20:56 ONCE, 1 [place] injection 00 :00 dose, Sun Medic al 12.5 g 01/24/21 at Branch 1515, 250 mL
Marie cation: POST-OPERA TIVE VOLUME RESUSCITAT ION-CARDIA C SURGERY
Comments: May only be used if 3L or more of crystalloi d has been administer ed within a given 24 hour period without an adequate hemodynami c response. albumin No 12.5g 12.5 g, IV Un mark (ALBUMINAR- 01-24 Infusion, it y of 5) 5 % 20:15: 20:56 ONCE, 1 [place] injection 00 :00 dose, [place] [facility] 12.5 g 01/24/21 at Branch 1515, 250 mL
Marie cation: POST-OPERA TIVE VOLUME RESUSCITAT ION-CARDIA C SURGERY
Comments: May only be used if 3L or more of crystalloi d has been administer ed within a given 24 hour period without an adequate hemodynami c response. magnesium 2020- No 30mL 30 mL, Unive rs hydroxide - 05-04 Oral, ity of (MILK OF 19:00: 11:09 DAILY, [place] MAGNESIA) 00 :59 First dose Medi joana 400 mg/5 mL on Pending Sale To [facility] suspension 01/24/21 at 30 mL 1400, Until Discontinu ed, Routine magnesium 2020- No 30mL 30 mL, Unive rs hydroxide 01-24 05-04 Oral, ity of (MILK OF 19:00: 11:09 DAILY, [place] MAGNESIA) 00 :59 First dose Medi joana 400 mg/5 mL on Pending Sale To [facility] suspension 01/24/21 at 30 mL 1400, Until Discontinu ed, Routine lactated 2020- No 250mL at 999 Unive rs ringers IV 5-02 05-02 mL/hr, 250 it y of infusion 15:45: 15:15 mL, [place] 250 mL 00 :00 Intravenou Medical s, ONCE, 1 Branch dose, [place] 01/24/21 at 1045, Routine lactated 2020-0 2020- No 250mL at 999 Unive rs ringers IV 5-02 05-02 mL/hr, 250 it y of infusion 15:45: 15:15 mL, [place] 250 mL 00 :00 Intravenou Medical s, ONCE, 1 Branch dose, [place] 01/24/21 at 1045, Routine clopidogreL Yes 75mg 75 mg, Univ ers (PLAVIX) 01-24 Oral, ity of tablet 75 14:00: DAILY, [place] mg 00 First dose Medical on Pending [facility] To [facility] 01/24/21 at 0900, Until Discontinu ed, Routine
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 approving Restricted medication : OBED CABRERA aspirin Yes 81mg 81 mg, Univers chewable 01-24 Oral, ity of tablet 81 14:00: DAILY, [place] mg 00 First dose Medical on Pending [facility] To [facility] 01/24/21 at 0900, Until Discontinu ed, Routine pantoprazol 2020- No 40mg 40 mg, Uni vers e 01-24 Oral, ity of (PROTONIX) 14:00: 13:59 DAILY, 30 [place] EC tablet 00 :00 doses, Medical 40 mg First dose Branch on [place] 01/24/21 at 0900, Last dose on Mon02/22/21 at 0900, Routine pantoprazol No 40mg 40 mg, Uni vers e 01-24 Oral, ity of (PROTONIX) 14:00: 13:59 DAILY, 30 [place] EC tablet 00 :00 doses, Medical 40 mg First dose Branch on [place] 01/24/21 at 0900, Last dose on Mon02/22/21 at 0900, Routine atorvastati Yes 80mg 80 mg, Univ ers n (LIPITOR) - Oral, QHS, it y of tablet 80 02:00: First dose [place] mg 00 on [facility] 01/23/21 at Branch 2100, Until Discontinu ed, Routine atorvastati Yes 80mg 80 mg, Univ ers n (LIPITOR) - Oral, QHS, it y of tablet 80 02:00: First dose [place] mg 00 on [facility] 01/23/21 at Branch 2100, Until Discontinu ed, Routine ferrous Yes 325mg 325 mg, Univer s sulfate 01-23 Oral, ity of tablet 325 21:30: BIDAC, [place] mg 00 First dose Medical on [facility] 01/23/21 at 1630, Until Discontinu ed, Routine ferrous 2021-0 Yes 325mg 325 mg, Univer s sulfate 01-23 Oral, ity of tablet 325 21:30: BIDAC, [place] mg 00 First dose Medical on Sat Branch 01/23/21 at 1630, Until Discontinu ed, Routine Sliding Yes Subcutaneo [facility] ers Scale 5-01 us, AC+HS, ity of Insulin-Reg 16:30: First dose [place] ular + Fsbg 00 on Sat Medica l Testing 01/23/21 at Branch 1130, Until Discontinu ed, Routine Sliding Yes Subcutaneo [facility] ers Scale 5- us, AC+HS, ity of Insulin-Reg 16:30: First dose [place] ular + Fsbg 00 on Sat Medica l Testing 01/23/21 at Branch 1130, Until Discontinu ed, Routine metoprolol 2020- No 12.5mg 12.5 mg, Univers tartrate 01-23 05-04 Oral, ity of (LOPRESSOR) 14:15: 12:03 Q12H, [place] half tablet 00 :50 First dose Me dical 12.5 mg on Sat Branch 01/23/21 at 0915, Until Discontinu ed, Routine metoprolol 2020- No 12.5mg 12.5 mg, Univers tartrate 01-2304 Oral, ity of (LOPRESSOR) 14:15: 12:03 Q12H, [...] IV ity of (D50W) 14:02: Push, PRN, [place] injection 37 Starting Medica l 25 mL 01/23/21 Branch at 0902, Until Discontinu ed, EMBER, Blood Glucose < or = 70 mg/dL and patient is unable to swallow or has mental status changes. ondansetron Yes 4mg 4 mg, Slow Univers (ZOFRAN 5-01 IV Push, ity of (PF)) 14:02: Q6HPRN, [place] injection 4 37 Starting Medi joana mg 01/23/21 Branch at 0902, Until Discontinu ed, Routine, Nausea and Vomiting (N/V) sodium Yes 1{enema 1 Enema, Univ ers phosphates 01-23 } Rectal, ity of (READY-TO-U 14:02: PRN - SEE [place] SE ENEMA) 37 INSTRUCTIO [place] joana 19-7 NS, 1 Branch gram/118 mL dose, enema 1 Starting Enema 01/23/21 at 0902, Until Discontinu ed, Routine, Constipati on, For bowel movemnet glucagon Yes 1mg 1 mg, Univers (GLUCAGEN 01-23 Intramuscu ity of DIAGNOSTIC 14:02: lar, PRN, [place] KIT) 37 Starting Medical injection 1 01/23/21 Br anch mg at 0902, Until Discontinu ed, EBMER, Blood Glucose < or = 70 mg/dL and patient is unable to swallow or has mental changes. dextrose 50 Yes 25mL 25 mL, Univ ers % in water 01-23 Slow IV ity of (D50W) 14:02: Push, PRN, [place] injection 37 Starting Medica l 25 mL 01/23/21 Branch at 0902, Until Discontinu ed, EMBER, Blood Glucose < or = 70 mg/dL and patient is unable to swallow or has mental status changes. ondansetron Yes 4mg 4 mg, Slow Univers (ZOFRAN 5-01 IV Push, ity of (PF)) 14:02: Q6HPRN, [place] injection 4 37 Starting Medi joana mg [...] Routine, Constipati on, For bowel movemnet bisacodyL 1-0 Yes 10mg 10 mg, Univer s (DULCOLAX) 5- Rectal, ity of suppository 14:02: PRN - SEE [place] 10 mg 36 [facility] NS, 1 Branch dose, Starting 01/23/21 at 0902, Until Discontinu ed, Routine, Constipati on, For bowel movent acetaminoph 2021-0 Yes 650mg 650 mg, Un mark en 5-01 Oral, ity of (TYLENOL) 14:02: Q6HPRNOral, [place] tablet 650 36 Starting Medic al mg 01/23/21 Branch at 0902, Until Discontinu ed, Routine, Temp > 38.5 C acetaminoph 2020-0 Yes 2{tbl} 2 tablet, Univers en-codeine 5- Oral, ity of (TYLENOL 14:02: Q4HPRN, [place] #3) 300-30 36 Starting Medic al mg tablet 2 01/23/21 Br anch tablet at 0902, Until Discontinu ed, Routine, Pain (scale 7-10) acetaminoph 2020-0 Yes 1{tbl} 1 tablet, Univers en-codeine - Oral, ity of (TYLENOL 14:02: Q6HPRN, [place] #3) 300-30 36 Starting Medic al mg tablet 1 01/23/21 Br anch tablet at 0902, Until Discontinu ed, Routine, Pain (scale 4-6) bisacodyL 1-0 Yes 10mg 10 mg, Univer s (DULCOLAX) 5-01 Rectal, ity of suppository 14:02: PRN - SEE [place] 10 mg 36 [facility] NS, 1 Branch dose, Starting 01/23/21 at 0902, Until Discontinu ed, Routine, Constipati on, For bowel movent acetaminoph 2021-0 Yes 650mg 650 mg, Un mark en 5-01 Oral, ity of (TYLENOL) 14:02: Q6HPRNOral, [place] tablet 650 36 Starting Medic al mg 01/23/21 Branch at 0902, Until Discontinu ed, Routine, Temp > 38.5 C acetaminoph Yes 2{tbl} 2 tablet, [facility] en-codeine 01-23 Oral, ity of (TYLENOL 14:02: Q4HPRN, [place] #3) 300-30 36 Starting Medic al mg tablet 2 01/23/21 Br anch tablet at 0902, Until Discontinu ed, Routine, Pain (scale 7-10) acetaminoph Yes 1{tbl} 1 tablet, [facility] en-codeine 01-23 Oral, ity of (TYLENOL 14:02: Q6HPRN, [place] #3) 300-30 36 Starting Medic al mg tablet 1 01/23/21 Br anch tablet at 0902, Until Discontinu ed, Routine, Pain (scale 4-6) sodium 2020- No 30mmol 30 mmol, [facility] ers phosphate 01-23 IV ity of 30 mmol in 12:45: 16:59 PigbackOral, [place] NaCl 0.9% 00 :00 ONCE, 1 Medical (NS) 250 mL dose, Sat [facility] piggyback 01/23/21 at 0745, 250 mL sodium 2020- No 30mmol 30 mmol, [facility] phosphate 01-23 IV ity of 30 mmol in 12:45: 16:59 [place], [place] NaCl 0.9% 00 :00 ONCE, 1 Medical (NS) 250 mL dose, Sat [facility] piggyback 01/23/21 at 0745, 250 mL digoxin 2020- No 250ug 250 mcg, [facility] (LANOXIN) 01-23 Intravenou ity of injection 01:15: 00:58 s, ONCE, 1 [place] 250 mcg 00 :00 dose, Mon Medical 01/22/21 at [place] 2014, Routine digoxin 2020- No 250ug 250 mcg, [facility] ers (LANOXIN) 01-23 Intravenou ity of injection 01:15: 00:58 s, ONCE, 1 [place] 250 mcg 00 :00 dose, Mon Medical 01/22/21 at [place] 2014, Routine potassium 2020-2020- No 40meq 40 mEq, Uni vers chloride 40 01-23 Intravenou i ty of mEq in 100 01:00: 04:58 s, ONCE, 1 [place] mL IVPB 00 :00 dose, [facility] 01/22/21 at Branch 2000, 100 mL potassium 2020-2020- No 40meq 40 mEq, Uni vers chloride 40 01-23 Intravenou i ty of mEq in 100 01:00: 04:58 s, ONCE, 1 [place] mL IVPB 00 :00 dose, [facility] 01/22/21 at Branch 2000, 100 mL digoxin 2020- No 250ug 250 mcg, Univ ers (LANOXIN) 01-22 Intravenou ity of injection 20:01: 20:06 s, ONCE, 1 [place] 250 mcg 00 :00 dose, [facility] 01/22/21 at [place] 1515, Routine digoxin 2020-2020- No 250ug 250 mcg, Univ ers (LANOXIN) 01-22 Intravenou ity of injection 20:01: 20:06 s, ONCE, 1 [place] 250 mcg 00 :00 dose, [facility] 01/22/21 at [place] [id number], Routine digoxin 2020- No 250ug 250 mcg, Univ ers (LANOXIN) 01-22 Intravenou ity of injection 17:15: 16:15 s, ONCE, 1 [place] 250 mcg 00 :00 dose, [facility] 01/22/21 at [place] 1215, Routine furosemide 2020- No 20mg 20 mg, Univ ers (LASIX) 01-22 Slow IV ity of injection 17:15: 18:46 Push, [place] 20 mg 00 :00 ONCE, 1 Medical dose, [facility] 01/22/21 at 121, Routine digoxin 2020- No 250ug 250 mcg, Univ ers (LANOXIN) 01-22 Intravenou ity of injection 17:15: 16:15 s, ONCE, 1 [place] 250 mcg 00 :00 dose, [facility] 01/22/21 at [place] 1215, Routine furosemide 2020- No 20mg 20 mg, Univ ers (LASIX) 01-22 Slow IV ity of injection 17:15: 18:46 Push, [place] 20 mg 00 :00 ONCE, 1 Medical dose, Fri Branch 01/22/21 at 1215, Routine albumin 2020- No 12.5g 12.5 g, IV Un mark (ALBUMINAR- 01-22 Infusion, it y of 5) 5 % 16:30: 15:24 ONCE, 1 [place] injection 00 :00 dose, Fri Medic al 12.5 g 01/22/21 at Branch 1130, 250 mL
Marie cation: POST-OPERA TIVE VOLUME RESUSCITAT ION-CARDIA C SURGERY
Comments: May only be used if 3L or more of crystalloi d has been administer ed within a given 24 hour period without an adequate hemodynami c response. albumin 2020- No 12.5g 12.5 g, IV Un mark (ALBUMINAR- 01-22 Infusion, it y of 5) 5 % 16:30: 15:24 ONCE, 1 [place] injection 00 :00 dose, Fri Medic al 12.5 g 01/22/21 at Branch 1130, 250 mL
Marie cation: POST-OPERA TIVE VOLUME RESUSCITAT ION-CARDIA C SURGERY
Comments: May only be used if 3L or more of crystalloi d has been administer ed within a given 24 hour period without an adequate hemodynami c response. D5W-LR IV 2020- No 1000mL at 75 Univ ers infusion 01-22 05-01 mL/hr, IV ity o f 1,000 mL 15:45: 14:06 Infusion, [place] [facility] 00 :55 CONTINUOUS Medical , Starting Branch 01/22/21 at 1045, Until 01/23/21 at 0906, EMBER D5W-LR IV 2020- No 1000mL at 75 Univ ers infusion 01-22 05-01 mL/hr, IV ity o f 1,000 mL 15:45: 14:06 Infusion, [place] as 00 :55 CONTINUOUS Medical , Starting Branch 01/22/21 at 1045, Until 01/23/21 at 0906, EMBER magnesium 2020- No 1g 1 g, IV Univ ers sulfate in 01-22 Piggyback, it y of D5W 1 15:30: 15:35 ONCE, 1 [place] gram/100 mL 00 :00 dose, Fri Med ical RTU IV 01/22/21 at [place] Piggyback 1 1030, 100 g mL magnesium 2020-2020- No 1g 1 g, IV Univ ers sulfate in 01-22 Piggyback, it y of D5W 1 15:30: 15:35 ONCE, 1 [place] gram/100 mL 00 :00 dose, Fri Med ical RTU IV 01/22/21 at [place] Piggyback 1 1030, 100 g mL albumin 2020-2020- No 12.5g 12.5 g, IV Un mark (ALBUMINAR- 01-22 Infusion, it y of 5) 5 % 14:20: 14:25 ONCE, 1 [place] injection 00 :00 dose, Fri Medic al 12.5 g 01/22/21 at [place] 0930, 250 mL
Marie cation: POST-OPERA TIVE VOLUME RESUSCITAT ION-CARDIA C SURGERY
Comments: May only be used if 3L or more of crystalloi d has been administer ed within a given 24 hour period without an adequate hemodynami c response. albumin 2020- No 12.5g 12.5 g, IV Un mark (ALBUMINAR- 01-22 Infusion, it y of 5) 5 % 14:20: 14:25 ONCE, 1 [place] injection 00 :00 dose, Fri Medic al 12.5 g 01/22/21 at [place] 0930, 250 mL
Marie cation: POST-OPERA TIVE VOLUME RESUSCITAT ION-CARDIA C SURGERY
Comments: May only be used if 3L or more of crystalloi d has been administer ed within a given 24 hour period without an adequate hemodynami c response. digoxin 2020-2020- No 250ug 250 mcg, Univ ers (LANOXIN) 01-22 Intravenou ity of injection 14:07: 14:11 s, ONCE, 1 [place] 250 mcg 00 :00 dose, Fri Medical 01/22/21 at [place] 0915, Routine digoxin 2020-2020- No 250ug 250 mcg, Univ ers (LANOXIN) 01-22 Intravenou ity of injection 14:07: 14:11 s, ONCE, 1 [place] 250 mcg 00 :00 dose, [facility] [place] Medical 01/22/21 at Branch 0915, Routine pantoprazol Yes 40mg 40 mg, Univ ers e 30 Oral, ity of (PROTONIX) 14:00: DAILY, [place] EC tablet 00 First dose Medi joana 40 mg on Mon Branch 01/22/21 at 0900, Until Discontinu ed, Routine pantoprazol 2020- No 40mg 40 mg, Uni vers e 01-22 Oral, ity of (PROTONIX) 14:00: 14:06 DAILY, [place] EC tablet 00 :55 First dose Medi joana 40 mg on Mon Branch 01/22/21 at 0900, Until Discontinu ed, Routine pantoprazol 2020- No 40mg 40 mg, Uni vers e 01-22 Oral, ity of (PROTONIX) 14:00: 14:06 DAILY, [place] EC tablet 00 :55 First dose Medi joana 40 mg on Mon Branch 01/22/21 at 0900, Until Discontinu ed, Routine D5W-LR IV 2020- No 1000mL at 42 Univ ers infusion 4-30 04-30 mL/hr, IV ity o f 1,000 mL 13:15: 15:40 Infusion, [place] 00 : CONTINUOUS Medical , Starting Branch Mon01/22/21 at 0815, Until Mon01/22/21 at 1040, EMBER D5W-LR IV 2020- No 1000mL at 42 Univ ers infusion 4-30 04-30 mL/hr, IV ity o f 1,000 mL 13:15: 15:40 Infusion, [place] 00 : CONTINUOUS Medical , Starting Branch Mon01/22/21 at 0815, Until Mon01/22/21 at 1040, EMBER digoxin 2020- No .5mg 500 mcg Univer s (LANOXIN) 01-22-30 (0.5 mg), ity of injection 11:29: 11:47 Intravenou [place] 500 mcg 00 :00 s, ONCE, 1 Medica l dose, Mon Branch 01/22/21 at 0630, Routine digoxin 2020- No .5mg 500 mcg Univer s (LANOXIN) 01-22-30 (0.5 mg), ity of injection 11:29: 11:47 Intravenou [place] 500 mcg 00 :00 s, ONCE, 1 Medica l dose, [facility] 01/22/21 at 0630, Routine sodium 2020- No 30mmol 30 mmol, Univ ers phosphate 01-22 IV ity of 30 mmol in 10:24: 15:28 PiggybackOral, [place] NaCl 0.9% 00 :00 ONCE, 1 Medical (NS) 250 mL dose, [facility] piggyback 01/22/21 at 0530, 250 mL sodium 2020- No 30mmol 30 mmol, Univ ers phosphate 01-22 IV ity of 30 mmol in 10:: :28 PiggybackOral, [place] NaCl 0.9% 00 :00 ONCE, 1 Medical (NS) 250 mL dose, [facility] piggyback 01/22/21 at 0530, 250 mL metoprolol 2020- No 12.5mg 12.5 mg, Univers tartrate 01-22 Oral, ONCE ity of (LOPRESSOR) 09:13: 09:27 NOW, 1 [place] [facility] half tablet 00 :00 dose, [facility] [place] Med ical 12.5 mg 01/22/21 at [place] [id number], Routine metoprolol 2020- No 12.5mg 12.5 mg, Univers tartrate 01-22 Oral, ONCE ity of (LOPRESSOR) 09:13: 09:27 NOW, 1 [place] [facility] half tablet 00 :00 dose, [facility] [place] Med ical 12.5 mg 01/22/21 at [place] [id number], Routine calcium 2020- No 2g 2 g, IV Univer s gluconate 2 01-22 Infusion, it y of g in NaCl 09:09: :28 ONCE, 1 [place] 100 mL 00 :00 dose, [facility] (ISO-OSM) 01/22/21 at [facility] RTU IV 0415, infusion 2 Routine g calcium 2020- No 2g 2 g, IV Univer s gluconate 2 01-22 Infusion, it y of g in NaCl 09:09: :28 ONCE, 1 [place] 100 mL 00 :00 dose, Fri Medical (ISO-OSM) 01/22/21 at [facility] RTU IV 0415, infusion 2 Routine g furosemide 2020- No 20mg 20 mg, Univ ers (LASIX) 01-2230 Slow IV ity of injection 08:39: 09:05 Push, [place] 20 mg 00 :00 ONCE, 1 Medical dose, [facility] 01/22/21 at 0345, Routine furosemide 2020- No 20mg 20 mg, Univ ers (LASIX) 01-22 Slow IV ity of injection 08:39: 09:05 Push, [place] 20 mg 00 :00 ONCE, 1 Medical dose, [facility] [place] 01/22/21 at 0345, Routine atorvastati Yes 80mg 80 mg, Univ ers n (LIPITOR) 01-22 Oral, QHS, it y of tablet 80 02:00: First dose [place] mg 00 on [facility] 01/21/21 at Branch 2100, Until Discontinu ed, Routine atorvastati 2020- No 80mg 80 mg, Uni vers n (LIPITOR) 01-22 Oral, QHS, i ty of tablet 80 02:00: 14:06 First dose [place] mg 00 :55 on [facility] 01/21/21 at Branch 2100, Until Discontinu ed, Routine atorvastati 2020- No 80mg 80 mg, Uni vers n (LIPITOR) 01-2201 Oral, QHS, i ty of tablet 80 02:00: 14:06 First dose [place] mg 00 :55 on [facility] 01/21/21 at Branch 2100, Until Discontinu ed, Routine metoprolol Yes 25mg 25 mg, Unive rs tartrate 01-22 Oral, BID, ity o f (LOPRESSOR) 01:00: First dose [place] tablet 25 00 on [facility] 01/21/21 at Branch 2000, Until Discontinu ed, Routine metoprolol 2020- No 12.5mg 12.5 mg, Univers tartrate 01-2230 Oral, BID, ity of (LOPRESSOR) 01:00: 15:21 First dose [place] half tablet 00 :01 (after Medica l 12.5 mg last Branch modificati on) on [facility] 01/21/21 at 1999, Until Discontinu ed, Routine metoprolol No 12.5mg 12.5 mg, Univers tartrate 01-22 Oral, BID, ity of (LOPRESSOR) 01:00: 15:21 First dose [place] half tablet 00 :01 (after Medica l 12.5 mg last Branch modificati on) on [place] 01/21/21 at 2000, Until Discontinu ed, Routine clopidogreL Yes 75mg 75 mg, Univ ers (PLAVIX) 01-21 Oral, ity of tablet 75 22:00: DAILY, [place] mg 00 First dose Medical on [place] Branch 01/21/21 at 1700, Until Discontinu ed, Routine
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 approving Restricted medication : OBED CABRERA clopidogreL 2020- No 75mg 75 mg, Uni vers (PLAVIX) 01-21 Oral, ity of tablet 75 22:00: 14:06 DAILY, [place] mg 00 :55 First dose Medical on [place] Branch 01/21/21 at 1700, Until Discontinu ed, Routine
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 approving Restricted medication : OBED CABRERA albumin No 25g 25 g, IV Unive rs (ALBUMINAR 01-21 Infusion, ity of 25%) 25 % 15:45: 14:39 ONCE, 1 [place] injection 00 :00 dose, [facility] Medic al 25 g 01/21/21 at Branch 1045, 100 mL
Marie cation: NON-APPROV ED INDICATION - PHARMACY WILL CALL ORDERING PROVIDER<b r>Specific Indication : post cabg
Fa culty Requesting Approval: ANATOLIY CARDONA albumin No 25g 25 g, IV Unive rs (ALBUMINAR 01-21 Infusion, ity of 25%) 25 % 15:45: 14:39 ONCE, 1 [place] injection 00 :00 dose, [facility] Medic al 25 g 01/21/21 at Branch 1045, 100 mL
Marie cation: NON-APPROV ED INDICATION - PHARMACY WILL CALL ORDERING PROVIDER<b r>Specific Indication : post cabg
Fa culty Requesting Approval: ANATOLIY CARDONA sennosides Yes 8.6mg 8.6 mg, Uni vers (SENOKOT) 01-21 Oral, ity of tablet 8.6 14:00: DAILY, [place] mg 00 First dose Medical on [facility] Branch 01/21/21 at 0900, Until Discontinu ed, Routine docusate Yes 100mg 100 mg, Unive rs (COLACE) 01-21 Oral, ity of capsule 100 14:00: DAILY, [place] mg 00 First dose Medical on [facility] Branch 01/21/21 at 0900, Until Discontinu ed, Routine sennosides 2020- No 8.6mg 8.6 mg, Un mark (SENOKOT) 01-21 Oral, ity of tablet 8.6 14:00: 14:06 DAILY, [place] mg 00 :55 First dose Medical on [facility] Branch 01/21/21 at 0900, Until Discontinu ed, Routine docusate 2020- No 100mg 100 mg, Univ ers (COLACE) 01-21 Oral, ity of capsule 100 14:00: 14:06 DAILY, [place] mg 00 :55 First dose Medical on [facility] Branch 01/21/21 at 0900, Until Discontinu ed, Routine sennosides 2020- No 8.6mg 8.6 mg, Un mark (SENOKOT) 01-21 Oral, ity of tablet 8.6 14:00: 14:06 DAILY, [place] mg 00 :55 First dose Medical on [facility] Branch 01/21/21 at 0900, Until Discontinu ed, Routine docusate 2020- No 100mg 100 mg, Univ ers (COLACE) 01-21 Oral, ity of capsule 100 14:00: 14:06 DAILY, [place] mg 00 :55 First dose Medical on [facility] 01/21/21 at 0900, Until Discontinu ed, Routine magnesium 2020- No 2g 2 g, IV Univ ers sulfate in 01-21 Piggyback, it y of water 2 13:00: 12:43 ONCE, 1 [place] gram/50 mL 00 :00 dose, [place] Medi joana (4 %) 01/21/21 at Branch infusion 2 0800, g Routine magnesium No 2g 2 g, IV Univ ers sulfate in 01-21 Piggyback, it y of water 2 13:00: 12:43 ONCE, 1 [place] gram/50 mL 00 :00 dose, [place] Medi joana (4 %) 01/21/21 at Branch infusion 2 0800, g Routine aspirin Yes 81mg 81 mg, Univers chewable 01-21 Oral, ity of tablet 81 06:30: DAILY, [place] mg 00 First dose Medical on [facility] 01/21/21 at 0130, Until Discontinu ed, Routine aspirin No 81mg 81 mg, Univers chewable 01-21 Oral, ity of tablet 81 06:30: 14:06 DAILY, [place] mg 00 :55 First dose Medical on [facility] 01/21/21 at 0130, Until Discontinu ed, Routine aspirin No 81mg 81 mg, Univers chewable 01-21 Oral, ity of tablet 81 06:30: 14:06 DAILY, [place] mg 00 :55 First dose Medical on [facility] 01/21/21 at 0130, Until Discontinu ed, Routine pantoprazol No 40mg 40 mg, IV Univers e 01-21 Piggyback, ity of (PROTONIX) 05:00: 13:07 Q24H, [place] 40 mg in 00 :02 First dose Medic al NaCl 0.9% on [facility] (NS) 100 mL 01/21/21 at MINI-BAG 0000, Until Discontinu ed, 100 mL pantoprazol 2020- No 40mg 40 mg, IV Univers e 01-21 Piggyback, ity of (PROTONIX) 05:00: 13:07 Q24H, [place] 40 mg in 00 :02 First dose Medic al NaCl 0.9% on [place] Branch (NS) 100 mL 01/21/21 at MINI-BAG 0000, Until Discontinu ed, 100 mL NaCl 0.9% 2020-2020- No 250mL at 999 Univ ers (NS) bolus 01-21-29 mL/hr, 250 it y of infusion 04:07: 04:14 mL, IV [place] 250 mL 00 :00 Piggyback, Medical ONCE, 1 Branch dose, 01/20/21 at 2315, STAT NaCl 0.9% 2020-0 2020- No 250mL at 999 Univ ers (NS) bolus 01-21-29 mL/hr, 250 it y of infusion 04:07: 04:14 mL, IV [place] 250 mL 00 :00 Piggyback, Medical ONCE, 1 Branch dose, 01/20/21 at 2315, STAT potassium 2020-2020- No 15mmol IV Unive rs phosphate 01-21 Piggyback, ity of 15 mmol in 04:00: 07:22 ONCE, 1 [place] NaCl 0.9% 00 :00 dose, Wed Medic al (NS) 150 mL 01/20/21 at Br anch piggyback 2300, 150 mL potassium 2020-2020- No 15mmol IV Unive rs phosphate 01-21 Piggyback, ity of 15 mmol in 04:00: 07:22 ONCE, 1 [place] NaCl 0.9% 00 :00 dose, Wed Medic al (NS) 150 mL 01/20/21 at Br anch piggyback 2300, 150 mL lidocaine 2020-2020- No 100mg 100 mg, Uni vers 2% 01-21 Slow IV ity of (XYLOCAINE) 03:45: 03:39 Push, [place] syringe 100 00 :00 ONCE, 1 Medic al mg dose, Wed Branch 01/20/21 at 2245, Routine lidocaine 2020-2020- No 100mg 100 mg, Uni vers 2% 01-21 Slow IV ity of (XYLOCAINE) 03:45: 03:39 Push, [place] syringe 100 00 :00 ONCE, 1 Medic al mg dose, [facility] Branch 01/20/21 at 2245, Routine calcium 2020- No 2g 2 g, IV Univer s gluconate 2 01-21 Infusion, it y of g in NaCl 01:00: 01:18 ONCE, 1 [place] 100 mL 00 :00 dose, [facility] Medical (ISO-OSM) 01/20/21 at [facility] RTU IV 1999, infusion 2 Routine g calcium 2020- No 2g 2 g, IV Univer s gluconate 2 01-21 Infusion, it y of g in NaCl 01:00: 01:18 ONCE, 1 [place] 100 mL 00 :00 dose, [facility] Medical (ISO-OSM) 01/20/21 at [facility] RTU IV 1999, infusion 2 Routine g DOBUTamine Yes 2.5ug/k at 3.75-30 Univers (DOBUTREX) -29 g/min mL/hr, ity of 500 mg in 00:22: 2.5-20 [place] 250 mL 33 mcg/kg/min Medical (Fixed ?50 kg Branch Dose) D5W (3.75-30 infusion mL/hr), IV RTU Infusion, TITRATE, Starting Mon01/20/21 at 1922, Until Discontinu ed, EMBER DOBUTamine No 2.5ug/k 2.5-20 U nivers (DOBUTREX) 01-21 05-01 g/min mcg/kg/min i ty of 500 mg in 00:22: 14:06 ?50 kg [place] 250 mL 33 :55 (3.75-30 Medical (Fixed mL/hr), IV Branch Dose) D5W Infusion, infusion TITRATE, RTU MAP Goal > or = 65 mmHg, Starting Mon01/20/21 at 192
In itiate infusion at 2.5 mcg/kg/min . &nb sp;Increas e by 1 mcg/kg/min every 15 minutes as needed to reach and maintain goal blood pressure.& nbsp;&nbsp ;Maximum dose = 20 mcg/kg/min . If goal not maintained at maximum allowed dose, contact prescriber .
DOBUTamine 2020- No 2.5ug/k 2.5-20 U nivers [...] maximum allowed dose, contact prescriber .
niCARdipine Yes 2.5mg/h 2.5-15 U nivers (CARDENE 4-29 mg/hr ity of I.V.) 40 mg 00:11: (12.5-75 [place] in NaCL 200 45 mL/hr), IV Me dical mL (RTU) Infusion, [...]
niCARdipine 2020- No 2.5mg/h 2.5-15 Univers (CARDENE 4-29 05-01 mg/hr ity of I.V.) 40 mg [...]
niCARdipine 2020- No 2.5mg/h 2.5-15 Univers (CARDENE 4 05-01 mg/hr ity of I.V.) 40 mg [...] maximum allowed dose, contact prescriber .
FENTanyl Yes 150ug 150 mcg, Univ ers [employer] (01-20 Intravenou ity of mcg/mL NS) 23:30: s, 30 mL, [place] 00 CONTINUOUS Medical , Starting Branch Mon01/20/21 at 1830, Until Discontinu ed FENTanyl 2020- No 150ug 150 mcg, Uni vers [employer] (5 01-20 04-30 Intravenou ity of mcg/mL NS) 23:30: 13:00 s, 30 mL, [place] 00 :33 CONTINUOUS Medical , Starting Branch Mon01/20/21 at 1830, Until Mon01/22/21 at 0800 FENTanyl 2020- No 150ug 150 mcg, Uni vers [employer] (01-20-30 Intravenou ity of mcg/mL NS) 23:30: 13:00 s, 30 mL, [place] 00 :33 CONTINUOUS Medical , Starting Branch Mon01/20/21 at 1830, Until Mon01/22/21 at 0800 NORepinephr Yes .05ug/k 0.05-1.5 Univers ine 4 mg in 4-28 g/min mcg/kg/min i ty of 0.9% NaCl 23:23: ?50 kg [place] 250 mL 25 (9.375-281 Medical infusion .25 mL/hr, Branc h RTU rounded to 9.38-281.2 5 mL/hr), IV Infusion, TITRATE, MAP Goal > or = 65 mmHg, Starting Mon01/20/21 at 1823
In itiate titration at 0.01 mcg/kg/min . &nb sp;Increas e by 0.01 mcg/kg/min every 30 seconds to 5 minutes as needed to reach and maintain goal blood pressure.& nbsp;&nbsp ;Maximum dose = 1.5 mcg/kg/min . &nb sp;If goal not maintained at maximum allowed dose, contact prescriber .
propofoL IV 2020- No 5ug/kg/ 5-50 Un [...] vials should be discarded after 12 hours
propofoL IV 2020- No 5ug/kg/ 5-50 Un [...] vials should be discarded after 12 hours
propofoL IV 2020- No 5ug/kg/ 5-50 Un mark infusion 01-20- min mcg/kg/min ity of 23:23: 23:22 ?50 [...] ONCE, 1 [place] injection 00 :00 dose, Wed Medic al 25 g 01/20/21 at Branch 1815, 500 mL
Marie cation: POST-OPERA TIVE VOLUME RESUSCITAT ION-CARDIA C SURGERY
Comments: May only be used if 3L or more of crystalloi d has been administer ed within a given 24 hour period without an adequate hemodynami c response. albumin 2020- No 25g 25 g, IV Unive rs (ALBUMINAR- 01-20 Infusion, it y of 5) 5 % 23:09: 23:13 ONCE, 1 [place] injection 00 :00 dose, Wed Medic al 25 g 01/20/21 at Branch 1815, 500 mL
Marie cation: POST-OPERA TIVE VOLUME RESUSCITAT ION-CARDIA C SURGERY
Comments: May only be used if 3L or more of crystalloi d has been administer ed within a given 24 hour period without an adequate hemodynami c response. D5W-LR IV Yes 1000mL at 50 Unive rs infusion 4-28 mL/hr, IV ity of 1,000 mL 22:30: Infusion, [place] 00 CONTINUOUS Medical , Starting Branch Mon01/20/21 at 1730, Until Discontinu ed, EMBER D5W-LR IV 2020- No 1000mL at 50 Univ ers infusion 01-20 04-30 mL/hr, IV ity o f 1,000 mL 22:30: 13:01 Infusion, [place] 00 :26 CONTINUOUS Medical , Starting Branch Mon01/20/21 at 1730, Until Mon01/22/21 at 0801, EMBER D5W-LR IV 2020- No 1000mL at 50 [...] on Mon01/20/21 at 1730, Last dose on Mon01/21/21 at 0930, 100 mL
Reas on for Anti-Infec tive: Surgical Prophylaxi s
Surgi joana Prophylaxi s: Cardiothor acic
Du ration of therapy: within 24 hours of surgery ceFAZolin 2020-2020- No 2000mg 2 g (2,000 Univers in [...] therapy: within 24 hours of surgery ondansetron Yes 4mg 4 mg, Slow Univers (ZOFRAN 01-20 IV Push, ity of (PF)) 22:26: Q6HPRN, [place] injection 4 42 Starting Medi joana mg Wed Branch 01/20/21 at 1726, Until Discontinu ed, EMBER, Nausea and Vomiting (N/V) ondansetron 2020- No 4mg 4 mg, Slow Univers (ZOFRAN 01-20 05- IV [place], ity of (PF)) 22:26: 14:06 Q6HPRN, [place] injection 4 42 :55 Starting Medi joana mg Wed Branch 01/20/21 at 1726, Until 01/23/21 at 0906, EMBER, Nausea and Vomiting (N/V) ondansetron 2020-0 2020- No 4mg 4 mg, Slow Univers (ZOFRAN 01-20 05- IV Push, ity of (PF)) 22:26: 14:06 Q6HPRN, [place] injection 4 42 :55 Starting Medi joana mg Wed Branch 01/20/21 at 1726, Until 01/23/21 at 0906, EMBER, Nausea and Vomiting (N/V) naloxone Yes .1mg 0.1 mg, Univer s (NARCAN) 01-20 Slow IV ity of injection 22:26: Push, [place] 0.1 mg 16 SEE-INSTRU Medical CTIONS, Branch Starting 01/20/21 at 1726, Until Discontinu ed, Routine furosemide Yes 20mg 20 mg, IV Un mark (LASIX) 01-20 Push, PRN, ity of injection 22:23: 2 doses, [place] 20 mg 26 Starting Medical Wed Branch 01/20/21 at 1723, Until Discontinu ed, EMBER, Pressure Maintenanc e NaCl 0.9% Yes 250mL at 999 Unive rs (NS) bolus 4-28 mL/hr, 250 ity of infusion 22:23: mL, IV [place] 250 mL 26 Infusion, Medical PRN - SEE Branch INSTRUCTIO NS, 3 doses, Starting 01/20/21 at 1723, Until Discontinu ed, EMBER insulin Yes 2U/h 2 Units/hr Univ ers regular 01-20 (2 mL/hr), ity of human 22:23: IV [place] (HUMULIN R) 26 Infusion, Med ical 100 Units TITRATE, Branch in D5W 100 Parameters mL infusion in Admin. Instr., Starting [facility] 01/20/21 at 1723
If FSBG > 210 on admission or remains > 160 after 6 hours of admission start insulin infusion at 2 units/hr.& nbsp;&nbsp ;Recheck FSBG q1h and titrate drip to achieve FSBG 120-160.&n bsp; If blood glucose remains less than 150 on <= 2 units/hr for 4h, stop insulin infusion, check blood glucose in 1h and resume sliding scale monitoring .
dextrose 50 Yes .5{syri 25 mL (0.5 Univers % in water 01-20 nge} Syringe), ity of (D50W) 22:23: IV Push, [place] injection 26 PRN, Medical 25 mL Starting Branch 01/20/21 at 1723, Until Discontinu ed, EMBER, For Blood Glucose < 60, recheck blood glucose 30 minutes after bolus glucagon 2020-0 Yes 1mg 1 mg, Univers (GLUCAGEN 01-20 Intramuscu ity of DIAGNOSTIC 22:23: lar, PRN, [place] KIT) 26 Starting Medical injection 1 Wed Branch mg 01/20/21 at 1723, Until Discontinu ed, EMBER, Blood Glucose < or = 70 mg/dL and patient is unable to swallow or has mental changes. dextrose 50 2020-0 Yes 25mL 25 mL, Univ ers % in water 01-20 Slow IV ity of (D50W) 22:23: Push, PRN, [place] injection 26 Starting Medica l 25 mL Wed Branch 01/20/21 at 1723, Until Discontinu ed, EMBER, Blood Glucose < or = 70 mg/dL and patient is unable to swallow or has mental status changes. acetaminoph 0 Yes 650mg 650 mg, Un mark en 01-20 Rectal, ity of (TYLENOL) 22:23: Q6HPRN, [place] suppository 25 Starting Medi joana 650 mg Wed Branch 01/20/21 at 1723, Until Discontinu ed, EMBER, Temp > 38.5 C acetaminoph 2020-0 Yes 650mg 650 mg, Un mark en 01-20 Oral, ity of (TYLENOL) 22:23: Q6HPRN, [place] tablet 650 25 Starting Medic al mg Wed Branch 01/20/21 at 1723, Until Discontinu ed, EMBER, Temp > 38.5 C acetaminoph 2020-0 Yes 2{tbl} 2 tablet, Univers en-codeine 01-20 Oral, ity of (TYLENOL 22:23: Q4HPRN, [place] #3) 300-30 25 Starting Medic al mg tablet 2 Wed Branch tablet 01/20/21 at 1723, Until Discontinu ed, Routine, Pain (scale 7-10) acetaminoph 2020-0 Yes 1{tbl} 1 tablet, Univers en-codeine 01-20 Oral, ity of (TYLENOL 22:23: Q6HPRN, [place] #3) 300-30 25 Starting Medic al mg tablet 1 Wed Branch tablet 01/20/21 at 1723, Until Discontinu ed, Routine, Pain (scale 4-6) acetaminoph 2020- No 2{tbl} 2 tablet, Univers en-codeine 01-20 Oral, ity of (TYLENOL 22:23: 14:06 Q4HPRN, [place] #3) 300-30 25 :55 Starting Medic al mg tablet 2 Mon Branch tablet 01/20/21 at 1723, Until 01/23/21 at 0906, Routine, Pain (scale 7-10) acetaminoph 2020- No 2{tbl} 2 tablet, Univers en-codeine 01-20 Oral, ity of (TYLENOL 22:23: 14:06 Q4HPRN, [place] #3) 300-30 25 :55 Starting Medic al mg tablet 2 Mon Branch tablet 01/20/21 at 1723, Until 01/23/21 at 0906, Routine, Pain (scale 7-10) ceFAZolin Yes PRN, Univers (ANCEF) 1 g 01-20 Starting ity of in NaCl 21:29: Wed [place] 0.9% (NS) 00 01/20/21 at [place] joana 1,000 mL OR 1629, Branch irrigation Intra-op heparin Yes PRN, Univers 1,000 01-20 Starting ity of unit/mL 21:29: Wed [place] 2,500 00 01/20/21 at Medical Units, 1629, Branch papaverine Intra-op 60 mg in NaCl 0.9% (NS) 100 mL OR irrigation heparin Yes PRN, Univers 1,000 01-20 Starting ity of unit/mL 21:29: Wed [place] 5,000 00 01/20/21 at Medical Units, 1629, Branch papaverine Intra-op 30 mg in NaCl 0.9% (NS) 500 mL OR irrigation heparin Yes PRN, Univers 1,000 01-20 Starting ity of unit/mL 19:00: Wed [place] 30,000 00 01/20/21 at Medical Units in 1400, Branch NaCl 0.9% Intra-op (NS) 1,000 mL OR irrigation metoprolol 2020- No [id number] 25mg 25 mg, Univers tartrate 01-20 Oral, ONCE ity of (LOPRESSOR) 11:00: 11:49 NOW, 1 [place] tablet 25 00 :00 dose, Wed Medic al mg 01/20/21 at [place] 0600, Routine, DSU Pre-op metoprolol 2020- No [id number] 25mg 25 mg, Univers tartrate 01-20 Oral, ONCE ity of (LOPRESSOR) 11:00: 11:49 NOW, 1 [place] tablet 25 00 :00 dose, Wed Medic al mg 01/20/21 at [place] 0600, Routine, DSU Pre-op aspirin 81 2020- No [id number] 81mg Take 1 Univers mg chewable 4-18 07-18 tablet by it y of tablet 00:00: 04:59 mouth [place] 00 :00 daily for Medical 90 days. [place] pantoprazol No [id number] 40mg Take 1 Univers e 40 mg EC 4-18 07-18 tablet by ity of tablet 00:00: 04:59 mouth [place] 00 :00 daily for Medical 90 days. [place] aspirin 81 2020- No [id number] 81mg Take 1 Univers mg chewable 4-18 07-18 tablet by it y of tablet 00:00: 04:59 mouth [place] 00 :00 daily for Medical 90 days. [place] pantoprazol 2020- No [id number] 40mg Take 1 Univers e 40 mg EC 4-18 07-18 tablet by ity of tablet 00:00: 04:59 mouth [place] 00 :00 daily for Medical 90 days. [place] aspirin 81 2020- No [id number] 81mg Take 1 Univers mg chewable 4-18 07-18 tablet by it y of tablet 00:00: 04:59 mouth [place] 00 :00 daily for Medical 90 days. Branch pantoprazol 2020- No [id number] 40mg Take 1 Univers e 40 mg EC 4-18 07-18 tablet by ity of tablet 00:00: 04:59 mouth [place] 00 :00 daily for Medical 90 days. [place] aspirin 81 2020- No [id number] 81mg Take 1 Univers mg chewable 4-18 07-18 tablet by it y of tablet 00:00: 04:59 mouth [place] 00 :00 daily for Medical 90 days. Branch pantoprazol 2020- No [id number] 40mg Take 1 Univers e 40 mg EC 4-18 07-18 tablet by ity of tablet 00:00: 04:59 mouth [place] 00 :00 daily for Medical 90 days. Branch aspirin 81 2020- No [id number] 81mg Take 1 Univers mg chewable 4-18 07-18 tablet by it y of tablet 00:00: 04:59 mouth [place] 00 :00 daily for Medical 90 days. Branch pantoprazol 2020- No [id number] 40mg Take 1 Univers e 40 mg EC 4-18 07-18 tablet by ity of tablet 00:00: 04:59 mouth [place] 00 :00 daily for Medical 90 days. Branch aspirin 81 2020- No [id number] 81mg Take 1 Univers mg chewable 4-18 -18 tablet by it y of tablet 00:00: 04:59 mouth [place] 00 :00 daily for Medical 90 days. Branch pantoprazol 2020- No [id number] 40mg Take 1 Univers e 40 mg EC 4-18 -18 tablet by ity of tablet 00:00: 04:59 mouth [place] 00 :00 daily for Medical 90 days. Branch aspirin 81 2020- No [id number] 81mg Take 1 Univers mg chewable 4-18 -18 tablet by it y of tablet 00:00: 04:59 mouth [place] 00 :00 daily for Medical 90 days. Branch pantoprazol 2020- No [id number] 40mg Take 1 Univers e 40 mg EC 4-18 -18 tablet by ity of tablet 00:00: 04:59 mouth [place] 00 :00 daily for Medical 90 days. Branch aspirin 81 2020- No [id number] 81mg Take 1 Univers mg chewable 4-18 -06 tablet by it y of tablet 00:00: 00:00 mouth [place] 00 :00 daily for Medical 90 days. Branch pantoprazol 2020- No [id number] 40mg Take 1 Univers e 40 mg EC 4-18 -06 tablet by ity of tablet 00:00: 00:00 mouth [place] 00 :00 daily for Medical 90 days. Branch aspirin 81 2020- No NSTEMI 81mg Take 1 Un mark mg chewable 4-18 05-06 (non-ST tablet by ity of tablet 00:00: 00:00 elevated mouth [place] 00 :00 myocardial daily for Medi joana infarction) 90 days. [place] pantoprazol 2020- No NSTEMI 40mg Take 1 U nivers e 40 mg EC 01-10 (non-ST tablet by ity of tablet 00:00: 00:00 elevated mouth [place] 00 :00 myocardial daily for Medi joana infarction) 90 days. [place] metoprolol Yes 50mg 50 mg, Unive rs tartrate 17 Oral, BID, ity o f (LOPRESSOR) 01:00: First dose [place] tablet 50 00 (after Medical mg last Branch modificati on) on Mon01/08/21 at 1999, Until Discontinu ed, EMBER metoprolol 2020- No 50mg 50 mg, Univ ers tartrate 01-09 Oral, BID, ity of (LOPRESSOR) 01:00: 05:06 First dose [place] tablet 50 00 :06 (after Medical mg last Branch modificati on) on Mon01/08/21 at 1999, Until Discontinu ed, EMBER atorvastati 2020- No [id number] 80mg Take 1 Univers n 80 mg 01-09 tablet by ity of tablet 00:00: 04:59 mouth [place] 00 :00 every Medical evening Branch for 90 days. metoprolol 2020- No [id number] 50mg Take 1 Univers tartrate 50 01-09 tablet by it y of mg tablet 00:00: 04:59 mouth 2 [place] 00 :00 (two) Medical times Branch daily for 90 days. clopidogreL 2020- No [id number] 75mg Take 1 Univers (PLAVIX) 75 01-09 tablet by it y of mg tablet 00:00: 04:59 mouth [place] 00 :00 daily for Medical 90 days. Branch lisinopriL 2020- No [id number] 2.5mg Take 1 Univers 2.5 mg 01-09 tablet by ity of tablet 00:00: 04:59 mouth [place] 00 :00 daily for Medical 90 days. Branch atorvastati 2020- No [id number] 80mg Take 1 Univers n 80 mg 4-10 04-17 tablet by ity of tablet 00:00: 04:59 mouth [place] 00 :00 every Medical evening Branch for 90 days. metoprolol 2020- No [id number] 50mg Take 1 Univers tartrate 50 4-10 04-17 tablet by it y of mg tablet 00:00: 04:59 mouth 2 [place] 00 :00 (two) Medical times Branch daily for 90 days. clopidogreL 2020- No [id number] 75mg Take 1 Univers (PLAVIX) 75 -10 04-17 tablet by it y of mg tablet 00:00: 04:59 mouth [place] 00 :00 daily for Medical 90 days. Branch lisinopriL 2020- No [id number] 2.5mg Take 1 Univers 2.5 mg 4-10 04- tablet by ity of tablet 00:00: 04:59 mouth [place] 00 :00 daily for Medical 90 days. Branch atorvastati 2020- No [id number] 80mg Take 1 Univers n 80 mg -10 04- tablet by ity of tablet 00:00: 04:59 mouth [place] 00 :00 every Medical evening Branch for 90 days. metoprolol 2020- No [id number] 50mg Take 1 Univers tartrate 50 -10 04- tablet by it y of mg tablet 00:00: 04:59 mouth 2 [place] 00 :00 (two) Medical times Branch daily for 90 days. clopidogreL 2020- No [id number] 75mg Take 1 Univers (PLAVIX) 75 -10 04-17 tablet by it y of mg tablet 00:00: 04:59 mouth [place] 00 :00 daily for Medical 90 days. Branch lisinopriL 2020- No [id number] 2.5mg Take 1 Univers 2.5 mg 4-10 04-17 tablet by ity of tablet 00:00: 04:59 mouth [place] 00 :00 daily for Medical 90 days. Branch atorvastati 2020- No [id number] 80mg Take 1 Univers n 80 mg 4-10 04-17 tablet by ity of tablet 00:00: 04:59 mouth [place] 00 :00 every Medical evening Branch for 90 days. metoprolol 2020- No [id number] 50mg Take 1 Univers tartrate 50 -10 04-17 tablet by it y of mg tablet 00:00: 04:59 mouth 2 [place] 00 :00 (two) Medical times Branch daily for 90 days. clopidogreL 2020- No [id number] 75mg Take 1 Univers (PLAVIX) 75 4-10 04-17 tablet by it y of mg tablet 00:00: 04:59 mouth [place] 00 :00 daily for Medical 90 days. Branch lisinopriL 2020- No [id number] 2.5mg Take 1 Univers 2.5 mg 4-10 04-17 tablet by ity of tablet 00:00: 04:59 mouth [place] 00 :00 daily for Medical 90 days. Branch atorvastati 2020- No [id number] 80mg Take 1 Univers n 80 mg 4-10 04-17 tablet by ity of tablet 00:00: 04:59 mouth [place] 00 :00 every Medical evening Branch for 90 days. metoprolol 2020- No [id number] 50mg Take 1 Univers tartrate 50 -10 04-17 tablet by it y of mg tablet 00:00: 04:59 mouth 2 [place] 00 :00 (two) Medical times Branch daily for 90 days. clopidogreL 2020- No [id number] 75mg Take 1 Univers (PLAVIX) 75 01-09-17 tablet by it y of mg tablet 00:00: 04:59 mouth [place] 00 :00 daily for Medical 90 days. Branch lisinopriL 2020- No [id number] 2.5mg Take 1 Univers 2.5 mg -10 04-17 tablet by ity of tablet 00:00: 04:59 mouth [place] 00 :00 daily for Medical 90 days. Branch atorvastati 2020- No [id number] 80mg Take 1 Univers n 80 mg 4-10 04-17 tablet by ity of tablet 00:00: 04:59 mouth [place] 00 :00 every Medical evening Branch for 90 days. metoprolol 2020- No [id number] 50mg Take 1 Univers tartrate 50 4-10 04-17 tablet by it y of mg tablet 00:00: 04:59 [place] (two) Medical times Branch daily for 90 days. clopidogreL 2020- No [id number] 75mg Take 1 Univers (PLAVIX) 75 01-09-17 tablet by it y of mg tablet 00:00: 04:59 mouth [place] 00 :00 daily for Medical 90 days. [place] lisinopriL 2020- No [id number] 2.5mg Take 1 Univers 2.5 mg 01-09-17 tablet by ity of tablet 00:00: 04:59 mouth [place] 00 :00 daily for Medical 90 days. [place] atorvastati 2020- No [id number] 80mg Take 1 Univers n 80 mg -10 04-17 tablet by ity of tablet 00:00: 04:59 mouth [place] 00 :00 every Medical evening Branch for 90 days. metoprolol 2020- No [id number] 50mg Take 1 Univers tartrate 50 01-09-17 tablet by it y of mg tablet 00:00: 04:59 [place] 00 :[place] (two) Medical times Branch daily for 90 days. clopidogreL 2020- No [id number] 75mg Take 1 Univers (PLAVIX) 75 01-09-17 tablet by it y of mg tablet 00:00: 04:59 mouth [place] 00 :00 daily for Medical 90 days. [place] lisinopriL 2020- No [id number] 2.5mg Take 1 Univers 2.5 mg 01-09- tablet by ity of tablet 00:00: 04:59 mouth [place] 00 :00 daily for Medical 90 days. [place] atorvastati 2020- No [id number] 80mg Take 1 Univers n 80 mg 01-09-06 tablet by ity of tablet 00:00: 00:00 mouth [place] 00 :00 every Medical evening Branch for 90 days. metoprolol 2020- No [id number] 50mg Take 1 Univers tartrate 50 -08 02-06 tablet by it y of mg tablet 00:00: 00:00 [place] 00 :[place] (two) Medical times Branch daily for 90 days. clopidogreL 2020- No [id number] 75mg Take 1 Univers (PLAVIX) 75 -08 02-06 tablet by it y of mg tablet 00:00: 00:00 mouth [place] 00 :00 daily for Medical 90 days. Branch lisinopriL 2020- No [id number] 2.5mg Take 1 Univers 2.5 mg 01-09 tablet by ity of tablet 00:00: 00:00 mouth [place] 00 :00 daily for Medical 90 days. [place] atorvastati 2020- No NSTEMI 80mg Take 1 U nivers n 80 mg 01-09 (non-ST tablet by ity of tablet 00:00: 00:00 elevated mouth [place] 00 :00 myocardial every Medical infarction) evening Branc h for 90 days. metoprolol 2020- NSTEMI 50mg Take 1 Un mark tartrate 50 01-09 (non-ST tablet by ity of mg tablet 00:00: 00:00 elevated mouth 2 [place] 00 :00 myocardial (two) Medical infarction) times Branch daily for 90 days. clopidogreL NSTEMI 75mg Take 1 U nivers (PLAVIX) 75 01-09 (non-ST tablet by ity of mg tablet 00:00: 00:00 elevated mouth [place] 00 :[place] myocardial daily for Medi joana infarction) 90 days. [facility] lisinopriL 2020- No NSTEMI 2.5mg Take 1 U nivers 2.5 mg 01-09 (non-ST tablet by ity of tablet 00:00: 00:00 elevated mouth [place] 00 :00 myocardial daily for Medi joana infarction) 90 days. Mike simethicone 2020- No PRN, Unive rs (GAS RELIEF 16 01-08 Starting ity of (SIMETHICON 16:52: 19:08 Fri [place] E)) 40 00 :05 01/08/21 at Medical mg/0.6 mL 1152, Branch drops Until 01/08/21 at 1408, Routine, Intra-op bisacodyL Yes 10mg 10 mg, Univer s (DULCOLAX) 4-15 Oral, ity of tablet 10 21:30: PRE-PROCED [place] mg 00 URE ONCE, Medical 1 dose, Branch Starting Evelyn 01/07/21 at 1630, Until Discontinu ed, Routine, Bowel Prep, Colonoscop y bisacodyL 2020-0 2020- No 10mg 10 mg, Unive rs (DULCOLAX) -07 01-18 Oral, ity of tablet 10 21:30: 05:06 PRE-PROCED [place] mg 00 :06 URE ONCE, Medical 1 dose, Branch Starting Evelyn 01/07/21 at 1630, Until 01/10/21 at 0006, Routine, Bowel Prep, Colonoscop y peg-electro 0 Yes 4000mL 4,000 mL, Univers lyte soln 4-15 Oral, PRN ity o f (GOLYTELY) 21:20: - [place] [id number] INSTRUCTIO Me dical .74 -5.86 NS, Branch gram Starting solution [place] 4,000 mL 01/07/21 at 1620, Until Discontinu ed, Routine, Bowel Prep, Colonoscop y peg-electro 2020-2020- No 4000mL 4,000 mL, Univers lyte soln 4-15 -18 Oral, PRN ity of (GOLYTELY) 21:20: 05:06 - [place] [id number] 21 :06 INSTRUCTIO Me dical .74 -5.86 NS, Branch gram Starting solution [place] 4,000 mL 01/07/21 at 1620, Until 01/10/21 at 0006, Routine, Bowel Prep, Colonoscop y ondansetron 0 Yes 4mg 4 mg, Slow Univers (ZOFRAN 4-15 IV Push, ity of (PF)) 21:20: Q6HPRN, [place] injection 4 20 Starting Medi joana mg [place] Branch 01/07/21 at 1620, Until Discontinu ed, Routine, Nausea and Vomiting (N/V) ondansetron 2020-0 2020- No 4mg 4 mg, Slow Univers (ZOFRAN 4-15 04-18 IV Push, ity of (PF)) 21:20: 05:06 Q6HPRN, [place] injection 4 20 :06 Starting Medi joana mg [place] Branch 01/07/21 at 1620, Until 01/10/21 at 0006, Routine, Nausea and Vomiting (N/V) bisacodyL 2020-2020- No 10mg 10 mg, Unive rs (DULCOLAX) 01-07 Oral, ity of tablet 10 21:20: 22:26 PRE-PROCED [place] mg 20 :00 URE ONCE, Medical 1 dose, Branch Starting Evelyn 01/07/21 at 1620, Until Discontinu ed, Routine, Bowel Prep, Colonoscop y polyethylen Yes 17g 17 g, Unive rs e glycol 01-07 Oral, TID, ity o f 3350 powder 19:15: First dose [place] 17 g 00 on Evelyn Medical 01/07/21 at Branch 1415, Until Discontinu ed, Routine polyethylen 2020- No 17g 17 g, Univ ers e glycol 01-07 Oral, TID, ity of 3350 powder 19:15: 05:06 First dose [place] 17 g 00 :06 on [facility] Medical 01/07/21 at Branch 1415, Until Discontinu ed, Routine metoprolol 2020- No 25mg 25 mg, Univ ers tartrate 01-07 Oral, BID, ity of (LOPRESSOR) 17:00: 16:18 First dose [place] tablet 25 00 :34 on [facility] Medical mg 01/07/21 at Branch 1200, Until Discontinu ed, EMBER KCL 2020- No 40meq 40 mEq, Univers (KLOR-CON 01-07 Oral, ity of M20) tablet 14:15: 17:10 ONCE, 1 [place] 40 mEq 00 :00 dose, [facility] Medical 01/07/21 at Branch 0915, Routine heparin 2020- No Slow IV Univer s 1,000 01-06 Push, ity of unit/mL 22:49: 22:49 TITRATE - [place] injection 20 :20 FOR Medical PROCEDURE Branch USE, 1 dose, Starting Mon01/06/21 at 1749, Until Mon01/06/21 at 1749, Routine nitroglycer 2020- No Intravenou Univers in (TRIDIL) 01-06 s, TITRATE i ty of 2 mg in 10 22:49: 22:49 - FOR [place] mL D5W for 11 :11 PROCEDURE Medi joana Cardiac USE, 1 Branch Cath dose, Starting Mon01/06/21 at 1749, Until Mon01/06/21 at 1749, Routine lidocaine 2020- No Infiltrati U nivers 1% (PF) 01-06 on, ity of (XYLOCAINE) 22:46: 22:46 TITRATE - [place] injection 22 :22 FOR Medical PROCEDURE Branch USE, 1 dose, Starting 01/06/21 at 1746, Until Mon01/06/21 at 1746, Routine FENTanyl PF 2020- No Slow IV Un mark (SUBLIMAZE 01-06 Push, ity of (PF)) 22:43: 22:43 TITRATE - [place] injection 00 :00 FOR Medical PROCEDURE Branch USE, 1 dose, Starting Mon01/06/21 at 1743, Until Mon01/06/21 at 1743, Routine midazolam 2020- No IV Push, Uni vers (VERSED) 01-06 TITRATE - ity o f injection 22:43: 22:43 FOR [place] 00 :00 PROCEDURE Medical USE, 1 Branch dose, Starting Mon01/06/21 at 1743, Until Mon01/06/21 at 1743, Routine perflutren 2020- No [id number] 2mL 2 mL, IV Univers lipid 01-06 Push, ity of microsphere 22:00: 21:30 ONCE, 1 [place] 00 :[place] dose, Wed Medical (DEFINITY) 01/06/21 at [facility] injection 2 1700, mL Routine iron No 1000mg 1,000 mg, Unive rs dextran 01-06 IV ity of (INFED) 15:00: 18:01 Infusion, [place] 1,000 mg in 00 :00 ONCE, 1 Medic al NaCl 0.9% dose, Wed Branc h (NS) 500 mL 01/06/21 at IV infusion 1000, 500 mL iron 2020- No 25mg 25 mg, IV Univers dextran 01-06 Piggyback, ity o f (INFED) 25 15:00: 15:50 ONCE, 1 [place] mg in NaCl 00 :00 dose, Wed Medi joana 0.9% (NS) 01/06/21 at [facility] ch 100 mL IV 1000, 100 piggyback mL aspirin Yes 81mg 81 mg, Univers chewable 01-06 Oral, ity of tablet 81 14:00: DAILY, [place] mg 00 First dose Medical (after Branch last modificati on) on Mon01/06/21 at 0900, Until Discontinu ed, Routine pantoprazol Yes 40mg 40 mg, Univ ers e 01-06 Oral, ity of (PROTONIX) 14:00: DAILY, [place] EC tablet 00 First dose Medi joana 40 mg on Mon Branch 01/06/21 at 0900, Until Discontinu ed, Routine sennosides- Yes 1{tbl} 1 tablet, Univers docusate 01-06 Oral, ity of sodium 14:00: DAILY, [place] (SENOKOT-S) 00 First dose Me dical 8.6-50 mg on Mon Branch per tablet 01/06/21 at 1 tablet 0900, Until Discontinu ed, Routine aspirin 2020- No 81mg 81 mg, Univers chewable 01-06 Oral, ity of tablet 81 14:00: 05:06 DAILY, [place] mg 00 :06 First dose Medical (after Branch last modificati on) on Mon01/06/21 at 0900, Until Discontinu ed, Routine pantoprazol 2020- No 40mg 40 mg, Uni vers e 01-06 Oral, ity of (PROTONIX) 14:00: 05:06 DAILY, [place] EC tablet 00 :06 First dose Medi joana 40 mg on Mon Branch 01/06/21 at 0900, Until Discontinu ed, Routine sennosides- 2020- No 1{tbl} 1 tablet, Univers docusate 01-06 Oral, ity of sodium 14:00: 05:06 DAILY, [place] (SENOKOT-S) 00 :06 First dose Me dical 8.6-50 mg on Mon Branch per tablet 01/06/21 at 1 tablet 0900, Until Discontinu ed, Routine atorvastati Yes 80mg 80 mg, Univ ers n (LIPITOR) 01-06 Oral, QPM, it y of tablet 80 08:30: First dose [place] mg 00 on Mon Medical 01/06/21 at Branch 0330, Until Discontinu ed, Routine
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 approving Restricted medication : TASNEEM LOPEZ, ALAN atorvastati 2020- No 80mg 80 mg, Uni vers n (LIPITOR) 01-0618 Oral, QPM, i ty of tablet 80 08:30: 05:06 First dose [place] mg 00 :06 on Mon Medical 01/06/21 at Branch 0330, Until Discontinu ed, Routine
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 approving Restricted medication : TASNEEM LOPEZ, ALAN nitroglycer 2020- No .5[in_u 0.5 Inch, Univers in (NITROL) 01-0614 s] Transderma i ty of 2 % 05:30: 04:25 l (Apply [place] ointment 00 :00 To Skin), Medica l 0.5 Inch ONCE, 1 Branch dose, 01/06/21 at 0030, EMBER heparin 2020- No 12U/kg/ 12 Univer s 25,000 01-06 04-16 h Units/kg/h ity of Units/250 04:14: 12:10 r ?54 kg [place] mL 20 :20 (6.48 Medical (Premixed mL/hr), IV Bran ch Bag) in Infusion, 0.45 % NS TITRATE, Parameters in Admin. Instr., Starting 01/05/21 at 2314
CA UTION - If LMWH given in ER, AVOID bolus and start next dose/drip 12 hrs after ER dosage.&nb sp; M ust program rate using programmab le infusion pump.&nbsp ; [place] ck with the ordering provider first prior to any administra tion should the patient be on existing/a dditional anticoagul ant therapy.&n bsp; Range, Dosing and Testing&nb sp; - aPTT < 40: & nbsp;Bolus 3000 units, increase rate 100 units/hr.& nbsp;- aPTT 40-49:&nbs p; In crease rate 50 units/hr. - aPTT 50-70:&nbs p; NO CHANGE.&nb sp;- aPTT 71-85:&nbs p; De crease rate 50 units/hr.& nbsp;- aPTT 86-100:&am p;nbsp;&nb sp;Hold 30 minutes, decrease rate 100 units/hr.& nbsp;- aPTT 101-150:&n bsp;&n bsp;Hold 60 minutes, decrease rate 150 units/hr.& nbsp;- aPTT > 150: Hold 60 minutes, decrease rate 300 units/hr.& nbsp;&nbsp ;Check aPTT 6 hours after initiation , then Q6H after every change, aPTT Q12H once therapeuti c levels are reached.&n bsp; DO NOT ADJUST INITIAL BOLUS OR INITIAL INFUSION RATE.
HEPARIN 2020- No 60U/kg 3,240 Univer s SODIUM 4-14 04-14 Units (60 ity of (PORCINE) 03:15: 03:26 Units/kg [place] 1,000 00 :00 ?54 kg), Medical UNIT/ML IV Push, Branch BOLUS ACS ONCE, 1 ORDER SET dose, 01/05/21 at 2215, Routine No known No Univers medications ity of [facility] Immunizations Ordered Filled Immunization Date Status Comments [facility] e Immunization Name Name SARS-COV-2 COVID-19 2021-08-27 Completed Unive rsity of MODERNA BOOSTER 00:00:00 [facility] [place] [facility] VACCINE Branch SARS-COV-2 COVID-19 2020-12-20 Completed Unive rsity of MODERNA VACCINE 00:00:00 [facility] [place] [facility] Branch SARS-COV-2 COVID-19 2020-12-20 Completed Unive rsity of MODERNA VACCINE 00:00:00 [facility] [place] [facility] Branch SARS-COV-2 COVID-19 2020-12-20 Completed Unive rsity of MODERNA VACCINE 00:00:00 [facility] [place] [facility] Branch SARS-COV-2 COVID-19 2020-12-20 Completed Unive rsity of MODERNA VACCINE 00:00:00 [facility] SARS-COV-2 COVID-19 2020-12-20 Completed Unive rsity of MODERNA VACCINE 00:00:00 [facility] SARS-COV-2 COVID-19 2020-12-20 Completed Unive rsity of MODERNA VACCINE 00:00:00 [place] [facility] ical Branch SARS-COV-2 COVID-19 2020-12-20 Completed Unive rsity of MODERNA VACCINE 00:00:00 [place] Med ical Branch SARS-COV-2 COVID-19 2020-12-20 Completed Unive rsity of MODERNA VACCINE 00:00:00 [place] Med ical Branch SARS-COV-2 COVID-19 2020-12-20 Completed Unive rsity of MODERNA VACCINE 00:00:00 [place] Med ical Branch SARS-COV-2 COVID-19 2020-12-20 Completed Unive rsity of MODERNA VACCINE 00:00:00 [place] Med ical Branch SARS-COV-2 COVID-19 2020-12-20 Completed Unive rsity of MODERNA VACCINE 00:00:00 [place] Med ical Branch SARS-COV-2 COVID-19 2020-12-20 Completed Unive rsity of MODERNA VACCINE 00:00:00 [place] Med ical Branch SARS-COV-2 COVID-19 2020-12-20 Completed Unive rsity of MODERNA VACCINE 00:00:00 [place] Med ical Branch SARS-COV-2 COVID-19 2020-12-20 Completed Unive rsity of MODERNA VACCINE 00:00:00 [place] Med ical Branch SARS-COV-2 COVID-19 2020-12-20 Completed Unive rsity of MODERNA VACCINE 00:00:00 [place] Med ical Branch SARS-COV-2 COVID-19 2020-12-20 Completed Unive rsity of MODERNA VACCINE 00:00:00 [place] [facility] ical Branch SARS-COV-2 COVID-19 2020-12-20 Completed Unive rsity of MODERNA VACCINE 00:00:00 [place] Med ical Branch SARS-COV-2 COVID-19 2020-12-20 Completed Unive rsity of MODERNA VACCINE 00:00:00 [place] Med ical Branch SARS-COV-2 COVID-19 2020-12-20 Completed Unive rsity of MODERNA VACCINE 00:00:00 [place] Med ical Branch SARS-COV-2 COVID-19 2020-12-20 Completed Unive rsity of MODERNA VACCINE 00:00:00 [place] Med ical Branch SARS-COV-2 COVID-19 2020-12-20 Completed Unive rsity of MODERNA VACCINE 00:00:00 [place] [facility] ical Branch SARS-COV-2 COVID-19 2020-12-20 Completed Unive rsity of MODERNA VACCINE 00:00:00 [place] Med ical Branch SARS-COV-2 COVID-19 2020-12-20 Completed Unive rsity of MODERNA VACCINE 00:00:00 [place] [facility] ical Branch SARS-COV-2 COVID-19 2020-11-22 Completed Unive rsity of MODERNA VACCINE 00:00:00 [place] [facility] ical Branch SARS-COV-2 COVID-19 2020-11-22 Completed Unive rsity of MODERNA VACCINE 00:00:00 [place] [facility] ical Branch SARS-COV-2 COVID-19 2020-11-22 Completed Unive rsity of MODERNA VACCINE 00:00:00 [facility] ical Branch SARS-COV-2 COVID-19 2020-11-22 Completed Unive rsity of MODERNA VACCINE 00:00:00 [place] [facility] ical Branch SARS-COV-2 COVID-19 2020-11-22 Completed Unive rsity of MODERNA VACCINE 00:00:00 [place] [facility] ical Branch SARS-COV-2 COVID-19 2020-11-22 Completed Unive rsity of MODERNA VACCINE 00:00:00 [place] [facility] ical Branch SARS-COV-2 COVID-19 2020-11-22 Completed Unive rsity of MODERNA VACCINE 00:00:00 [facility] ical Branch SARS-COV-2 COVID-19 2020-11-22 Completed Unive rsity of MODERNA VACCINE 00:00:00 [place] [facility] ical Branch SARS-COV-2 COVID-19 2020-11-22 Completed Unive rsity of MODERNA VACCINE 00:00:00 [place] [facility] ical Branch SARS-COV-2 COVID-19 2020-11-22 Completed Unive rsity of MODERNA VACCINE 00:00:00 [place] [facility] ical Branch SARS-COV-2 COVID-19 2020-11-22 Completed Unive rsity of MODERNA VACCINE 00:00:00 [facility] ical Branch SARS-COV-2 COVID-19 2020-11-22 Completed Unive rsity of MODERNA VACCINE 00:00:00 [facility] SARS-COV-2 COVID-19 2020-11-22 Completed Unive rsity of MODERNA VACCINE 00:00:00 [facility] [place] [facility] Branch SARS-COV-2 COVID-19 2020-11-22 Completed Unive rsity of MODERNA VACCINE 00:00:00 [facility] SARS-COV-2 COVID-19 2020-11-22 Completed Unive rsity of MODERNA VACCINE 00:00:00 [facility] SARS-COV-2 COVID-19 2020-11-22 Completed Unive rsity of MODERNA VACCINE 00:00:00 [facility] SARS-COV-2 COVID-19 2020-11-22 Completed Unive rsity of MODERNA VACCINE 00:00:00 [facility] SARS-COV-2 COVID-19 2020-11-22 Completed Unive rsity of MODERNA VACCINE 00:00:00 [facility] SARS-COV-2 COVID-19 2020-11-22 Completed Unive rsity of MODERNA VACCINE 00:00:00 [facility] SARS-COV-2 COVID-19 2020-11-22 Completed Unive rsity of MODERNA VACCINE 00:00:00 [facility] SARS-COV-2 COVID-19 2020-11-22 Completed Unive rsity of MODERNA VACCINE 00:00:00 [facility] SARS-COV-2 COVID-19 2020-11-22 Completed Unive rsity of MODERNA VACCINE 00:00:00 [facility] SARS-COV-2 COVID-19 2020-11-22 Completed Unive rsity of MODERNA VACCINE 00:00:00 [facility] Influenza Virus 2020-08-08 Completed Universit y of Vaccine 00:00:00 [facility] Influenza Virus 2020-08-08 Completed Universit y of Vaccine 00:00:00 [facility] Influenza Virus 2020-08-08 Completed Universit y of Vaccine 00:00:00 [facility] Influenza Virus 2020-08-08 Completed Universit y of Vaccine 00:00:00 [facility] Influenza Virus 2020-08-08 Completed Universit y of Vaccine 00:00:00 [facility] Influenza Virus 2020-08-08 Completed Universit y of Vaccine 00:00:00 [facility] Influenza Virus 2020-08-08 Completed Universit y of Vaccine 00:00:00 [facility] Influenza Virus 2020-08-08 Completed Universit y of Vaccine 00:00:00 [facility] Influenza Virus 2020-08-08 Completed Universit y of Vaccine 00:00:00 [facility] Influenza Virus 2020-08-08 Completed Universit y of Vaccine 00:00:00 [facility] Influenza Virus 2020-08-08 Completed Universit y of Vaccine 00:00:00 [facility] Influenza Virus 2020-08-08 Completed Universit y of Vaccine 00:00:00 [facility] Influenza Virus 2020-08-08 Completed Universit y of Vaccine 00:00:00 [facility] Influenza Virus 2020-08-08 Completed Universit y of Vaccine 00:00:00 [facility] Influenza Virus 2020-08-08 Completed Universit y of Vaccine 00:00:00 [facility] Influenza Virus 2020-08-08 Completed Universit y of Vaccine 00:00:00 [facility] Influenza Virus 2020-08-08 Completed Universit y of Vaccine 00:00:00 [facility] Influenza Virus 2020-08-08 Completed Universit y of Vaccine 00:00:00 [facility] Influenza Virus 2020-08-08 Completed Universit y of Vaccine 00:00:00 [facility] Influenza Virus 2020-08-08 Completed Universit y of Vaccine 00:00:00 [facility] Influenza Virus 2020-08-08 Completed Universit y of Vaccine 00:00:00 [facility] Influenza Virus 2020-08-08 Completed Universit y of Vaccine 00:00:00 [facility] Vital Signs Vital Name Observation Time Observation Value Comments Source Systolic blood 2021-04-06 127 mm[Hg] University of pressure 20:01:00 [facility] Diastolic blood 2021-04-06 81 mm[Hg] [place] o f pressure 20:01:00 [facility] Heart rate 2021-04-06 80 /min University of 20:01:00 [facility] Respiratory rate 2021-04-06 19 /min University of 20:01:00 [facility] Body height 2021-04-06 161.3 cm University of 20:01:00 [facility] Body weight 2021-04-06 51.71 kg University of 20:01:00 [facility] BMI 2021-04-06 19.88 kg/m2 University of 20:01:00 [facility] Oxygen saturation 2021-04-06 97 /min University of in Arterial blood 20:01:00 [place] [facility] joana by Pulse oximetry Branch Systolic blood 2021-02-23 112 mm[Hg] University of pressure 21:01:00 [place] [facility] Diastolic blood 2021-02-23 75 mm[Hg] University o f pressure 21:01:00 [facility] Heart rate 2021-02-23 96 /min University of 21:01:00 [facility] Body temperature 2021-02-23 36.67 N[place] University of 21:01:00 [facility] Branch Respiratory rate 2021-02-23 17 /min University of 21:01:00 [facility] Body height 2021-02-23 161.3 cm University of :01:00 [facility] Body weight 2021-02-23 50.712 kg University of 21:01:00 [facility] BMI 2021-02-23 19.49 kg/m2 University of 21:01:00 [facility] Oxygen saturation 2021-02-23 100 /min University of in Arterial blood 21:01:00 [place] [facility] joana by Pulse oximetry Branch Systolic blood 2021-02-23 112 mm[Hg] University of pressure 21:01:00 [facility] Branch Diastolic blood 2021-02-23 75 mm[Hg] University o f pressure 21:01:00 [facility] Heart rate 2021-02-23 96 /min University of 21:01:00 [facility] Body temperature 2021-02-23 36.67 Nora University of 21:01:00 [facility] Branch Respiratory rate 2021-02-23 17 /min University of 21:01:00 [facility] Branch Body height 2021-02-23 161.3 cm University of 21:01:00 [facility] Body weight 2021-02-23 50.712 kg University of 21:01:00 [facility] BMI 2021-02-23 19.49 kg/m2 University of 21:01:00 [facility] Branch Oxygen saturation 2021-02-23 100 /min University of in Arterial blood 21:01:00 [place] [facility]i joana by Pulse oximetry Branch Systolic blood 2021-02-21 106 mm[Hg] University of pressure 17:03:00 [place] [facility] Diastolic blood 2021-02-21 74 mm[Hg] University o f pressure 17:03:00 [facility] Heart rate 2021-02-21 88 /min University of 17:03:00 [facility] Body temperature 2021-02-21 36.06 Nora University of 17:03:00 [facility] Respiratory rate 2021-02-21 18 /min University of 17:03:00 [facility] Oxygen saturation 2021-02-21 100 /min University of in Arterial blood 17:03:00 [facility] joana by Pulse oximetry Branch Body weight 2021-02-21 52.436 kg University of :53:00 [facility] BMI 2021-02-21 20.48 kg/m2 University of :53:00 [facility] Body height 2021-02-21 160 cm University of :43:00 [facility] Systolic blood 2021-02-21 106 mm[Hg] University of pressure 17:03:00 [facility] Diastolic blood 2021-02-21 74 mm[Hg] University o f pressure 17:03:00 [facility] Heart rate 2021-02-21 88 /min University of 17:03:00 [facility] Body temperature 2021-02-21 36.06 Nora University of 17:03:00 [facility] Respiratory rate 2021-02-21 18 /min University of 17:03:00 [facility] Oxygen saturation 2021-02-21 100 /min University of in Arterial blood 17:03:00 [facility] by Pulse oximetry Branch Body weight 2021-02-21 52.436 kg University of :53:00 [facility] BMI 2021-02-21 20.48 kg/m2 University of :53:00 [facility] Body height 2021-02-21 160 cm University of :43:00 [facility] Systolic blood 2021-02-11 129 mm[Hg] University of pressure 18:13:00 [facility] Branch Diastolic blood 2021-02-11 84 mm[Hg] University o f pressure 18:13:00 [facility] Heart rate 2021-02-11 95 /min University of 18:13:00 [facility] Body temperature 2021-02-11 36.39 Nora University of 18:13:00 [facility] Branch Respiratory rate 2021-02-11 15 /min University of 18:13:00 [facility] Body height 2021-02-11 167.6 cm University of 18:13:00 [facility] Body weight 2021-02-11 50.803 kg University of 18:13:00 [facility] BMI 2021-02-11 18.08 kg/m2 University of 18:13:00 [facility] Systolic blood 2021-02-11 129 mm[Hg] University of pressure 18:13:00 [facility] Diastolic blood 2021-02-11 84 mm[Hg] University o f pressure 18:13:00 [facility] Heart rate 2021-02-11 95 /min University of 18:13:00 [facility] Body temperature 2021-02-11 36.39 Nora University of 18:13:00 [facility] Respiratory rate 2021-02-11 15 /min University of 18:13:00 [facility] Body height 2021-02-11 167.6 cm University of 18:13:00 [facility] Body weight 2021-02-11 50.803 kg University of 18:13:00 [facility] BMI 2021-02-11 18.08 kg/m2 University of 18:13:00 [facility] Systolic blood 2021-01-30 98 mm[Hg] University of pressure 21:00:00 [facility] Diastolic blood 2021-01-30 49 mm[Hg] University o f pressure 21:00:00 [facility] Heart rate 2021-01-30 97 /min University of 21:00:00 [facility] Respiratory rate 2021-01-30 20 /min University 21:00:00 [facility] Oxygen saturation 2021-01-30 98 /min [facility] Arterial blood 21:00:00 [facility] by Pulse oximetry [place] Body temperature 2021-01-30 37.56 Nora University of 20:23:00 [facility] Systolic blood 2021-01-28 105 mm[Hg] University of pressure 15:45:00 [facility] Diastolic blood 2021-01-28 62 mm[Hg] University o f pressure 15:45:00 [facility] Heart rate 2021-01-28 104 /min University of 15:45:00 [facility] Systolic blood 2021-01-28 105 mm[Hg] University of pressure 15:45:00 [facility] Diastolic blood 2021-01-28 62 mm[Hg] University o f pressure 15:45:00 [facility] Heart rate 2021-01-28 104 /min University of 15:45:00 [facility] Body temperature 2021-01-28 36.61 Nora University of 12:50:00 [facility] Oxygen saturation 2021-01-28 96 /min University of in Arterial blood 12:50:00 [facility] Pulse oximetry [facility] Body temperature 2021-01-28 36.61 Nora University of 12:50:00 [facility] Oxygen saturation 2021-01-28 96 /min University of in Arterial blood 12:50:00 [facility] joana by Pulse oximetry [facility] Body weight 2021-01-28 51.393 kg University of 04:00:00 [facility] BMI 2021-01-28 18.29 kg/m2 University of 04:00:00 [facility] Body weight 2021-01-28 51.393 kg University of 04:00:00 [facility] BMI 2021-01-28 18.29 kg/m2 University of 04:00:00 [facility] Respiratory rate 2021-01-28 16 /min University of 00:00:00 [facility] Respiratory rate 2021-01-28 16 /min University of 00:00:00 [facility] Body height 2021-01-20 167.6 cm University of 11:31:00 [facility] Body height 2021-01-20 167.6 cm University of 11:31:00 [facility] Systolic blood 2021-01-28 105 mm[Hg] University of pressure 15:45:00 [facility] Diastolic blood 2021-01-28 62 mm[Hg] University o f pressure 15:45:00 [facility] Heart rate 2021-01-28 104 /min University of 15:45:00 [facility] Systolic blood 2021-01-28 105 mm[Hg] University of pressure 15:45:00 [facility] Diastolic blood 2021-01-28 62 mm[Hg] University o f pressure 15:45:00 [facility] Heart rate 2021-01-28 104 /min University of 15:45:00 [facility] Body temperature 2021-01-28 36.61 Nora University of 12:50:00 [facility] Oxygen saturation 2021-01-28 96 /min University of in Arterial blood 12:50:00 [facility] Pulse oximetry [facility] Body temperature 2021-01-28 36.61 Nora University of 12:50:00 [facility] Oxygen saturation 2021-01-28 96 /min [place] of in Arterial blood 12:50:00 [facility] by Pulse oximetry [facility] Body weight 2021-01-28 51.393 kg University of 04:00:00 [facility] BMI 2021-01-28 18.29 kg/m2 University of 04:00:00 [facility] Body weight 2021-01-28 51.393 kg University of 04:00:00 [facility] BMI 2021-01-28 18.29 kg/m2 University of 04:00:00 [facility] Respiratory rate 2021-01-28 16 /min University of 00:00:00 [facility] Respiratory rate 2021-01-28 16 /min University of 00:00:00 [facility] Body height 2021-01-20 167.6 cm University of 11:31: [facility] Body height 2021-01-20 167.6 cm University of 11:31:00 [facility] Systolic blood 2021-01-20 130 mm[Hg] University of pressure 11:31:00 [facility] Diastolic blood 2021-01-20 72 mm[Hg] University o f pressure 11:31:00 [facility] Heart rate 2021-01-20 74 /min University of 11::00 [facility] Body temperature 2021-01-20 36.94 Nora University of 11:31:00 [facility] Respiratory rate 2021-01-20 16 /min University of 11:31:00 [facility] Body height 2021-01-20 167.6 cm University of 11:31: [facility] Body weight 2021-01-20 50 kg University of 11:31: [facility] BMI 2021-01-20 17.79 kg/m2 University of 11:31:00 [facility] Oxygen saturation 2021-01-20 99 /min [facility] in Arterial blood 11:31:00 [facility] by Pulse oximetry [facility] Systolic blood 2021-01-10 130 mm[Hg] University of pressure 00:34:00 [facility] Diastolic blood 2021-01-10 71 mm[Hg] University o f pressure 00:34:00 [facility] Heart rate 2021-01-10 64 /min University of 00:34:00 [facility] Body temperature 2021-01-10 36.39 Nora [facility] 00:34:00 [facility] Respiratory rate 2021-01-10 20 /min [facility] 00:34:00 [facility] Oxygen saturation 2021-01-10 100 /min [facility] in Arterial blood 00:34:00 [facility] by Pulse oximetry [facility] Body weight 2021-01-09 49.442 kg actual wt on University 08:36:00 the regular [facility] scale Branch BMI 2021-01-09 17.59 kg/m2 University 08:36:00 [facility] Body height 2021-01-08 167.6 cm University 16:05:00 [facility] Systolic blood 2021-01-08 115 mm[Hg] University of pressure 17:57:00 [facility] Diastolic blood 2021-01-08 78 mm[Hg] [place] o f pressure 17:57:00 [facility] Heart rate 2021-01-08 89 /min [facility] 17:57:00 [facility] Respiratory rate 2021-01-08 20 /min [facility] 17:57:00 [facility] Oxygen saturation 2021-01-08 100 /min [facility] in Arterial blood 17:57:00 [facility] by Pulse oximetry [place] Body temperature 2021-01-08 36.39 Nora [facility] 16:05:00 [facility] Body height 2021-01-08 167.6 cm University 16:05:00 [facility] Body weight 2021-01-08 48.988 kg University 16:05:00 [facility] BMI 2021-01-08 17.59 kg/m2 [facility] 16:05:00 [facility] Procedures Procedure Date / Time Performing Source Performed Clinician SARS-COV-2 COVID-19 VACCINE 2021-08-27 Doctor Unassigned, U niversity of BOOSTER,0.25ML,IM (MODERNA) 20:47:52 [place] [facility] MAGNESIUM 2021-02-21 Catracho Husain [place] of 09:49:00 [facility] TROPONIN I 2021-02-21 Nighat Wolff [place] of 09:49:00 [facility] BASIC METABOLIC PANEL (NA, K, CL, 2021-02-21 Catracoh Husain [place] of CO2, GLUCOSE, BUN, CREATININE, CA) 09:49:00 [facility] LIPID PANEL (22702)(TOTAL 2021-02-21 [facility] sity of CHOLESTEROL, TRIGLYCERIDES, HDL) 09:49:00 [facility] N-TERMINAL PRO-BNP 2021-02-21 [facility] of 09:49:00 [facility] DUPLEX VENOUS LEG LEFT - BY 2021-02-20 [facility] ersity of VASCULAR LAB 23:59:03 [facility] COVID-19 (ID NOW RAPID TESTING) 2021-02-20 [facility] of 23:55:00 [facility] CT CHEST PULMONARY ANGIOGRAM 2021-02-20 [facility] versity of 23:35:42 [facility] URINALYSIS 2021-02-20 [facility] of 22:14:00 [facility] XR CHEST 1 VW 2021-02-20 [facility] 22:08:30 [facility] TROPONIN I 2021-02-20 [facility] of 22:07:00 [facility] BASIC METABOLIC PANEL (NA, K, CL, 2021-02-20 [facility] of CO2, GLUCOSE, BUN, CREATININE, CA) 22:07:00 [facility] CBC WITH DIFF 2021-02-20 [facility] of 22:07:00 [facility] GLYCOSYLATED HEMOGLOBIN (A1C) 2021-02-20 [facility] iversity of 22:07:00 [facility] CONSENT/REFUSAL FOR DIAGNOSIS AND 2021-02-20 [facility] 21[facility]49:31 [place] [facility] COMP. METABOLIC PANEL (23299) 2021-01-30 [facility] of 21:18:00 F [facility] CBC WITH DIFF 2021-01-30 [facility] of 21:18:00 F [facility] POCT GLUCOSE (AUTOMATED) 2021-01-28 Obed Cabrera [facility] ersity of 13:37:00 T [facility] POCT GLUCOSE (AUTOMATED) 2021-01-28 bOed Cabrera [facility] ersity of 13:37:00 T [facility] POCT GLUCOSE (AUTOMATED) 2021-01-28 Obed Cabrera Univ ersity of 01:37:00 T [facility] POCT GLUCOSE (AUTOMATED) 2021-01-28 Deborah, Obed Univ ersity of 01:37:00 T [facility] POCT GLUCOSE (AUTOMATED) 2021-01-27 Deborah, [facility] Univ ersity of 23:27:00 T [facility] POCT GLUCOSE (AUTOMATED) 2021-01-27 Deborah, Obed Univ ersity of 23:27:00 T [facility] POCT GLUCOSE (AUTOMATED) 2021-01-27 Deborah, Obed [facility] ersity of 18:43:00 T [facility] POCT GLUCOSE (AUTOMATED) 2021-01-27 Obed Cabrera [facility] ersity of 18:43:00 T [facility] PHOSPHORUS 2021-01-27 [facility] of 14:35:00 [facility] MAGNESIUM 2021-01-27 [facility] of 14:35:00 [facility] BASIC METABOLIC PANEL (NA, K, CL, 2021-01-27 [facility] of CO2, GLUCOSE, BUN, CREATININE, CA) 14:35:00 [facility] PHOSPHORUS 2021-01-27 [facility] of 14:35:00 [facility] MAGNESIUM 2021-01-27 [facility] of 14:35:00 [facility] BASIC METABOLIC PANEL (NA, K, CL, 2021-01-27 [facility] of CO2, GLUCOSE, BUN, CREATININE, CA) 14:35:00 [facility] POCT GLUCOSE (AUTOMATED) 2021-01-27 Obed Cabrera [facility] ersity of 14:24:00 T [facility] POCT GLUCOSE (AUTOMATED) 2021-01-27 Obed Cabrera [facility] ersity of 14:24:00 T [facility] POCT GLUCOSE (AUTOMATED) 2021-01-27 Deborah [facility] ersity of 01:11:00 T [facility] POCT GLUCOSE (AUTOMATED) 2021-01-27 Obed Cabrera [facility] ersity of 01:11:00 T [facility] PHOSPHORUS 2021-01-26 [facility] of 09:18:00 [facility] MAGNESIUM 2021-01-26 [place], [employer] of 09:18:00 [facility] BASIC METABOLIC PANEL (NA, K, CL, 2021-01-26 [facility] of CO2, GLUCOSE, BUN, CREATININE, CA) 09:18:00 [facility] CBC WITH DIFF 2021-01-26 [place], [facility] of 09:18:00 [facility] PHOSPHORUS 2021-01-26 [place], [facility] of 09:18:00 [facility] MAGNESIUM 2021-01-26 [place], [facility] of 09:18:00 [facility] BASIC METABOLIC PANEL (NA, K, CL, 2021-01-26 [facility] of CO2, GLUCOSE, BUN, CREATININE, CA) 09:18:00 [facility] CBC WITH DIFF 2021-01-26 [place], [facility] of 09:18:00 [facility] BASIC METABOLIC PANEL (NA, K, CL, 2021-01-26 [place], [facility] of CO2, GLUCOSE, BUN, CREATININE, CA) 05:24:00 [facility] CBC WITH DIFF 2021-01-26 [facility] of 05:24:00 [facility] BASIC METABOLIC PANEL (NA, K, CL, 2021-01-26 [place], [facility] University of CO2, GLUCOSE, BUN, CREATININE, CA) 05:24:00 [facility] CBC WITH DIFF 2021-01-26 [facility] of 05:24:00 [facility] POCT GLUCOSE (AUTOMATED) 2021-01-26 Obed Cabrera [facility] ersity of 01:12:00 T [facility] POCT GLUCOSE (AUTOMATED) 2021-01-26 Deborah [facility] ersity of 01:12:00 T [facility] POCT GLUCOSE (AUTOMATED) 2021-01-25 Obed Cabrera [facility] ersity of 21:52:00 T [facility] POCT GLUCOSE (AUTOMATED) 2021-01-25 Deborah [facility] ersity of 21:52:00 T [facility] POCT GLUCOSE (AUTOMATED) 2021-01-25 Obed Cabrera [facility] ersity of 14:00:00 T [facility] POCT GLUCOSE (AUTOMATED) 2021-01-25 Obed Cabrera [facility] ersity of 14:00:00 T [facility] XR CHEST 2 VW 2021-01-25 [facility] 10:25:24 [facility] XR CHEST 2 VW 2021-01-25 Syed [facility] of 10:25:24 [facility] HB ECG ROUTINE & RHYTHM STRIP 2021-01-25 [facility] [place] [facility] iversity of 08:48:34 [facility] HB ECG ROUTINE & RHYTHM STRIP 2021-01-25 [place] Un iversity of 08:48:34 [facility] MAGNESIUM 2021-01-25 [facility] 08:32:00 [facility] BASIC METABOLIC PANEL (NA, K, CL, 2021-01-25 [facility] CO2, GLUCOSE, BUN, CREATININE, CA) 08:32:00 [facility] MAGNESIUM 2021-01-25 [facility] of 08:32:00 [facility] BASIC METABOLIC PANEL (NA, K, CL, 2021-01-25 [facility] CO2, GLUCOSE, BUN, CREATININE, CA) 08:32:00 [facility] POCT GLUCOSE (AUTOMATED) 2021-01-24 Deborah [facility] ersity of 17:42:00 T [facility] POCT GLUCOSE (AUTOMATED) 2021-01-24 Deborah [facility] ersity of 17:42:00 T [facility] DIGOXIN 2021-01-24 [facility] 15:09:00 [facility] DIGOXIN 2021-01-24 [facility] 15:09:00 [facility] POCT GLUCOSE (AUTOMATED) 2021-01-24 Deborah [facility] ersity of 13:53:00 T [facility] POCT GLUCOSE (AUTOMATED) 2021-01-24 Deborah [facility] ersity of 13:53:00 T [facility] BASIC METABOLIC PANEL (NA, K, CL, 2021-01-24 [facility] CO2, GLUCOSE, BUN, CREATININE, CA) 10:06:00 [facility] CBC WITH DIFF 2021-01-24 Syed [facility] of 10:06:00 [facility] BASIC METABOLIC PANEL (NA, K, CL, 2021-01-24 [facility] CO2, GLUCOSE, BUN, CREATININE, CA) 10:06:00 [facility] CBC WITH DIFF 2021-01-24 [facility] 10:06:00 [facility] POCT GLUCOSE (AUTOMATED) 2021-01-24 Deborah [facility] ersity of 01:55:00 T [facility] POCT GLUCOSE (AUTOMATED) 2021-01-24 Deborah [facility] ersity of 01:55:00 T [facility] POCT GLUCOSE (AUTOMATED) 2021-01-23 Deborah [facility] ersity of 23:33:00 T [facility] POCT GLUCOSE (AUTOMATED) 2021-01-23 Deborah [facility] ersity of 23:33:00 T [facility] POCT GLUCOSE (AUTOMATED) 2021-01-23 Deborah [facility] ersity of 18:31:00 T [facility] POCT GLUCOSE (AUTOMATED) 2021-01-23 Deborah [facility] ersity of 18:31:00 T [facility] PHOSPHORUS 2021-01-23 Silvino Eason [facility] of 09:22:00 [facility] MAGNESIUM 2021-01-23 Silvino Eason [facility] of 09:22:00 [facility] BASIC METABOLIC PANEL (NA, K, CL, 2021-01-23 Vinny Eason [place] of CO2, GLUCOSE, BUN, CREATININE, CA) 09:22:00 [facility] CBC WITHOUT DIFF 2021-01-23 Silvino Eason [facility] of 09:22:00 [facility] PHOSPHORUS 2021-01-23 Silvino Eason [facility] of 09:22:00 [facility] MAGNESIUM 2021-01-23 [facility] 09:22:00 [facility] BASIC METABOLIC PANEL (NA, K, CL, 2021-01-23 Vinny Eason [facility] CO2, GLUCOSE, BUN, CREATININE, CA) 09:22:00 [facility] CBC WITHOUT DIFF 2021-01-23 Silvino Eason [facility] of 09:22:00 [facility] XR CHEST 1 VW 2021-01-23 Silvino Eason [facility] of 08:15:00 [facility] XR CHEST 1 VW 2021-01-23 Silvino Eason [facility] of 08:15:00 [facility] CBC WITHOUT DIFF 2021-01-23 Jenaro [facility] of 01:47:00 [facility] CBC WITHOUT DIFF 2021-01-23 [facility] of 01:47:00 [facility] POTASSIUM SERUM 2021-01-22 [facility] of 22:00:00 [facility] POTASSIUM SERUM 2021-01-22 [facility] of 22:00:00 [facility] PREPARE PACKED RBC 2021-01-22 [facility] of 17:04:53 [facility] PREPARE PACKED RBC 2021-01-22 [facility] of 17:04:53 [facility] HB ECG ROUTINE & RHYTHM STRIP 2021-01-22 [place] Un iversity of 09:11:17 [facility] HB ECG ROUTINE & RHYTHM STRIP 2021-01-22 [place]i [place] Un iversity of 09:11:17 [facility] PHOSPHORUS 2021-01-[address] [facility] of 09:04:00 [facility] MAGNESIUM 2021-01-[address] [facility] of 09:04:00 [facility] BASIC METABOLIC PANEL (NA, K, CL, 2021-01-22 [facility] of CO2, GLUCOSE, BUN, CREATININE, CA) 09:04:00 [facility] CBC WITH DIFF 2021-01-22 [place], [facility] of 09:04:00 [facility] PHOSPHORUS 2021-01-22 [place], [facility] of 09:04:00 [facility] MAGNESIUM 2021-01-[address] [facility] of 09:04:00 [facility] BASIC METABOLIC PANEL (NA, K, CL, 2021-01-22 [place], [facility] of CO2, GLUCOSE, BUN, CREATININE, CA) 09:04:00 [facility] CBC WITH DIFF 2021-01-22 Anatoliy Cardona [facility] of 09:04:00 [facility] XR CHEST 1 VW 2021-01-22 CardonaAnatoliy palacios [facility] of 07:57:00 [facility] XR CHEST 1 VW 2021-01-22 [place], [facility] of 07:57:00 [facility] HB ECG ROUTINE & RHYTHM STRIP 2021-01-21 [facility] 12:26:52 [facility] HB ECG ROUTINE & RHYTHM STRIP 2021-01-21 [facility] 12:26:52 [facility] ABG+COOX+NA+K+GLU+CA2+ 2021-01-21 Benji Olvera, [facility] sity of 10:09:00 [facility] ABG+COOX+NA+K+GLU+CA2+ 2021-01-21 Benji Olvera, [facility] sity of 10:09:00 [facility] ABG+COOX+NA+K+GLU+CA2+ 2021-01-21 Benji Olvera, [facility] sity of 10:09:00 [facility] PHOSPHORUS 2021-01-21 [facility] 10:08:00 [facility] MAGNESIUM 2021-01-21 [facility] 10:08:00 [facility] BASIC METABOLIC PANEL (NA, K, CL, 2021-01-21 Benji tsaio, [place] of CO2, GLUCOSE, BUN, CREATININE, CA) 10:08:00 [facility] CBC WITH DIFF 2021-01-21 [facility] 10:08:00 [facility] PROTHROMBIN TIME / INR 2021-01-[address] [facility] 10:08:00 [facility] PHOSPHORUS 2021-01-21 [facility] 10:08:00 [facility] MAGNESIUM 2021-01-21 [facility] 10:08:00 [facility] BASIC METABOLIC PANEL (NA, K, CL, 2021-01-21 Benji Gallagher tacho, [place] of CO2, GLUCOSE, BUN, CREATININE, CA) 10:08:00 [facility] CBC WITH DIFF 2021-01-21 [facility] 10:08:00 [facility] PROTHROMBIN TIME / INR 2021-01-[address] [facility] 10:08:00 [facility] PHOSPHORUS 2021-01-21 [facility] 10:08:00 [facility] MAGNESIUM 2021-01-21 [facility] 10:08:00 [facility] BASIC METABOLIC PANEL (NA, K, CL, 2021-01-21 Benji tsaio, [facility] CO2, GLUCOSE, BUN, CREATININE, CA) 10:08:00 [facility] CBC WITH DIFF 2021-01-21 [place] [facility] of 10:08:00 [facility] PROTHROMBIN TIME / INR 2021-01-[address] [facility] 10:08:00 [facility] XR CHEST 1 VW 2021-01-21 [facility] 07:24:00 [facility] XR CHEST 1 VW 2021-01-21 [facility] 07:24:00 [facility] XR CHEST 1 VW 2021-01-21 [facility] 07:24:00 [facility] CBC WITHOUT DIFF 2021-01-21 Red [facility] of 03:09:00 [facility] CBC WITHOUT DIFF 2021-01-21 Red [facility] of 03:09:00 [facility] CBC WITHOUT DIFF 2021-01-21 Red [facility] of 03:09:00 [facility] CBC WITHOUT DIFF 2021-01-21 Red [facility] of 01:25:00 [facility] ABG+COOX+NA+K+GLU+CA2+ 2021-01-[address] [facility] :25:00 [facility] CBC WITHOUT DIFF 2021-01-21 Red [facility] of :25:00 [facility] ABG+COOX+NA+K+GLU+CA2+ 2021-01-21 [place] [facility] :25:00 [facility] CBC WITHOUT DIFF 2021-01-21 Red [facility] of :25:00 [facility] ABG+COOX+NA+K+GLU+CA2+ 2021-01-[address] [facility] :25:00 [facility] XR CHEST 1 VW 2021-01-20 Red [facility] of 22:55:00 [facility] XR CHEST 1 VW 2021-01-20 Zohaib Moon [facility] of 22:55:00 [facility] XR CHEST 1 VW 2021-01-20 Zohaib Moon [facility] of 22:55:00 [facility] XR ABDOMEN 1 VW 2021-01-20 [facility] 22:49:00 [facility] XR CHEST 1 VW 2021-01-20 Benji Olvera, [place] of :49:00 [facility] XR ABDOMEN 1 VW 2021-01-20 Benji Olvera, [place] of :49:00 [facility] XR CHEST 1 VW 2021-01-20 Benji Olvera, [place] of :49:00 [facility] XR ABDOMEN 1 VW 2021-01-20 [facility] of :49:00 [facility] XR CHEST 1 VW 2021-01-20 Benji Olvera, [place] of :49:00 [facility] ABG+COOX+NA+K+GLU+CA2+ 2021-01-[address] [facility] 22:44:00 [facility] ABG+COOX+NA+K+GLU+CA2+ 2021-01-[address] [facility] 22:44:00 [facility] ABG+COOX+NA+K+GLU+CA2+ 2021-01-[address] [facility] 22:44:00 [facility] PHOSPHORUS 2021-01-20 [facility] 22:42:00 [facility] MAGNESIUM 2021-01-20 [facility] 22:42:00 [facility] BASIC METABOLIC PANEL (NA, K, CL, 2021-01-20 Benji titus, [facility] CO2, GLUCOSE, BUN, CREATININE, CA) 22:42:00 [facility] CBC WITH DIFF 2021-01-20 [facility] 22:42:00 [facility] MRSA / MSSA SCREEN BY PCR, AMELIA 2021-01-20 Benji stoner, [facility] 22:42:00 [facility] PHOSPHORUS 2021-01-20 Benji Olvera, [facility] 22:42:00 [facility] MAGNESIUM 2021-01-20 [facility] 22:42:00 [facility] BASIC METABOLIC PANEL (NA, K, CL, 2021-01-[address] [facility] of CO2, GLUCOSE, BUN, CREATININE, CA) 22:42:00 [facility] CBC WITH DIFF 2021-01-20 [facility] 22:42:00 [facility] MRSA / MSSA SCREEN BY PCR, AMLEIA 2021-01-20 Benji Gallaghere no, [facility] 22:42:00 [facility] PHOSPHORUS 2021-01-20 [facility] 22:42:00 [facility] MAGNESIUM 2021-01-20 [facility] 22:42:00 [facility] BASIC METABOLIC PANEL (NA, K, CL, 2021-01-[address] [facility] CO2, GLUCOSE, BUN, CREATININE, CA) 22:42:00 [facility] CBC WITH DIFF 2021-01-20 [facility] 22:42:00 [facility] MRSA / MSSA SCREEN BY PCR, AMELIA 2021-01-20 Benji Gallaghere no, [facility] 22:42:00 [facility] TRANSFUSE PLATELETS 2021-01-20 Samples, [facility] o f 22:18:54 [facility] TRANSFUSE PLATELETS 2021-01-20 Samples, [facility] o f 22:18:54 [facility] TRANSFUSE PLATELETS 2021-01-20 Samples, [facility] o f 22:18:54 [facility] TRANSFUSE PLATELETS 2021-01-20 Samples, [facility] o f 22:00:18 [facility] TRANSFUSE PLATELETS 2021-01-20 Samples, [facility] o f 22:00:18 [facility] TRANSFUSE PLATELETS 2021-01-20 Samples, [facility] o f 22:00:18 [facility] PREPARE PLATELETS 2021-01-20 Samples, [facility] of 21:54:03 [facility] PREPARE PLATELETS 2021-01-20 Samples, [facility] of 21:54:03 [facility] PREPARE PLATELETS 2021-01-20 Samples, [facility] of 21:54:03 [facility] CBC WITH DIFF 2021-01-20 Obed Cabrera [place] of 21:47:17 T [facility] PROTHROMBIN TIME / INR 2021-01-20 Deborah, Obed [facility] sity of 21:47:17 T [facility] ACTIVATED PARTIAL THRMPLAS MACIEL 2021-01-20 [facility] of 21:47:17 T [facility] FIBRINOGEN 2021-01-20 Deborah [facility] of 21:47:17 T [facility] CBC WITH DIFF 2021-01-20 Deborah, [facility] of 21:47:17 T [facility] PROTHROMBIN TIME / INR 2021-01-20 Deborah Obed [facility] sity of 21:47:17 T [facility] ACTIVATED PARTIAL THRMPLAS MACIEL 2021-01-20 Jack [facility] of 21:47:17 T [facility] FIBRINOGEN 2021-01-20 Deborah Obed [place] of 21:47:17 T [facility] CBC WITH DIFF 2021-01-20 Deborah, Obed [place] of 21:47:17 T [facility] PROTHROMBIN TIME / INR 2021-01-20 Deborah, Obed [facility] sity of 21:47:17 T [facility] ACTIVATED PARTIAL THRMPLAS MACIEL 2021-01-20 Jack Cabrera [facility] of 21:47:17 T [facility] FIBRINOGEN 2021-01-20 Deborah Obed [place] of 21:47:17 T [facility] ABG+COOX+NA+K+GLU+CA2+ 2021-01-20 Obed Cabrera [facility] sity of 21:24:00 T [facility] ABG+COOX+NA+K+GLU+CA2+ 2021-01-20 Obed Cabrera [facility] sity of 21:24:00 T [facility] TRANSFUSE PACKED RBC 2021-01-20 Samples, [facility] of 21:12:39 [facility] TRANSFUSE PACKED RBC 2021-01-20 Samples, [facility] of 21:12:39 [facility] TRANSFUSE PACKED RBC 2021-01-20 Samples, [facility] of 21:12:39 [facility] TRANSFUSE PACKED RBC 2021-01-20 Samples, [facility] of 21:09:33 [facility] TRANSFUSE PACKED RBC 2021-01-20 Samples, [facility] of 21:09:33 [facility] TRANSFUSE PACKED RBC 2021-01-20 Samples, [facility] of 21:09:33 [facility] ISTAT ACUTE CARE ARTERIAL 2021-01-20 Roughbradley, Obed Uni versity of 21:04:00 T [facility] ISTAT ACUTE CARE ARTERIAL 2021-01-20 Roughneen, Obed Uni versity of 21:04:00 T [facility] ISTAT ACUTE CARE ARTERIAL 2021-01-20 Roughneen, Obed Uni versity of 21:04:00 T [facility] POCT ACT HIGH RANGE 2021-01-20 Omkarneen, Obed Univers[facility] of 21:01:00 T [facility] POCT ACT HIGH RANGE 2021-01-20 Radhaen, Obed [facility] of 21:01:00 T [facility] POCT ACT HIGH RANGE 2021-01-20 Roughneen, Obed [facility] of 21:01:00 T [facility] TRANSFUSE PACKED RBC 2021-01-20 Samples, [facility] of 20:25:19 [facility] TRANSFUSE PACKED RBC 2021-01-20 Samples, [facility] of 20:25:19 [facility] TRANSFUSE PACKED RBC 2021-01-20 Samples, [facility] of 20:25:19 [facility] ISTAT ACUTE CARE ARTERIAL 2021-01-20 Deborah, Obed Uni versity of 20:21:00 T [facility] ISTAT ACUTE CARE ARTERIAL 2021-01-20 Roughneen, Obed Uni versity of 20:21:00 T [facility] ISTAT ACUTE CARE ARTERIAL 2021-01-20 Roughneen, Obed Uni versity of 20:21:00 T [facility] TRANSFUSE PACKED RBC 2021-01-20 Samples, [facility] of 20:06:11 [facility] TRANSFUSE PACKED RBC 2021-01-20 Samples, [facility] of 20:06:11 [facility] TRANSFUSE PACKED RBC 2021-01-20 Samples, [facility] of 20:06:11 [facility] ISTAT ACUTE CARE ARTERIAL 2021-01-20 Deborah, Obed Uni versity of 19:25:00 T [facility] ACUTE CARE ARTERIAL 2021-01-20 Radhaen, Obed Uni versity of 19:25:00 T [facility] ACUTE CARE ARTERIAL 2021-01-20 Radhaen, Obed Uni versity of 19:25:00 T [facility] ACUTE CARE ARTERIAL 2021-01-20 Deborah, Obed Uni versity of 18:59:00 T [facility] ACUTE CARE ARTERIAL 2021-01-20 Radhaen, Obed Uni versity of 18:59:00 T [facility] ACUTE CARE ARTERIAL 2021-01-20 Radhaen, Obed Uni versity of 18:59:00 T [facility] POCT ACT HIGH RANGE 2021-01-20 Deborah, Obed [facility] of 18:52:00 T [facility] POCT ACT HIGH RANGE 2021-01-20 Deborah, Obed [facility] of 18:52:00 T [facility] POCT ACT HIGH RANGE 2021-01-20 Deborah, Obed [facility] of 18:52:00 T [facility] PREPARE PACKED RBC 2021-01-20 Samples, [facility] of 18:06:15 [facility] PREPARE PACKED RBC 2021-01-20 Samples, [facility] of 18:06:15 [facility] PREPARE PACKED RBC 2021-01-20 Samples, [facility] of 18:06:15 [facility] ACUTE CARE ARTERIAL 2021-01-20 Obed Cabrera Uni versity of 17:29:00 T [facility] ACUTE CARE ARTERIAL 2021-01-20 Deborah, Obed Uni versity of 17:29:00 T [facility] ACUTE CARE ARTERIAL 2021-01-20 Deborah, Obed Uni versity of 17:29:00 T [facility] PREPARE PACKED RBC 2021-01-20 BibianaJuliana [place] of 17:16:28 [facility] PREPARE PACKED RBC 2021-01-20 BibianaJuliana [place] of 17:16:28 [facility] PREPARE PACKED RBC 2021-01-20 Juliana Vinson of 17:16:28 [facility] CORONARY ARTERY BYPASS GRAFT 2021-01-20 Obed Cabrera of 16:32:00 T [facility] ENDOSCOPIC VEIN HARVEST 2021-01-20 [facility]bed Cabrera [facility] of 16:32:00 T [facility] CORONARY ARTERY BYPASS GRAFT 2021-01-20 Obed Cabrera [place] of 16:32:00 T [facility] ENDOSCOPIC VEIN HARVEST 2021-01-20 Obed Cabrera [facility]ity of 16:32:00 T [facility] CORONARY ARTERY BYPASS GRAFT 2021-01-20 Obed Cabrera [place] of 16:32:00 T [facility] ENDOSCOPIC VEIN HARVEST 2021-01-20 Obed Cabrera [facility]ity of 16:32:00 T [facility] CBC WITH DIFF 2021-01-20 Juliana Vinson of 13:27:00 [facility] ABORH CONFIRMATION 2021-01-20 Obed Cabrera of 13:27:00 T [facility] CBC WITH DIFF 2021-01-20 Juliana Vinson [place] of 13:27:00 [facility] ABORH CONFIRMATION 2021-01-20 Obed Cabrera [place] of 13:27:00 T [facility] CBC WITH DIFF 2021-01-20 Juliana Vinson of 13:27:00 [facility] ABORH CONFIRMATION 2021-01-20 Obed Cabrera of 13:27:00 T [facility] HB ABO GROUPING 2021-01-20 Juliana Vinson [place] of 12:20:00 [facility] HB ABO GROUPING 2021-01-20 Juliana Vinson [place] of 12:20:00 [facility] HB ABO GROUPING 2021-01-20 Juliana Vinson [place] of 12:20:00 [facility] BASIC METABOLIC PANEL (NA, K, CL, 2021-01-20 Rosendo Vinson [place] of CO2, GLUCOSE, BUN, CREATININE, CA) 12:17:00 [facility] PROTHROMBIN TIME / INR 2021-01-20 Juliana Vinson [facility] it of 12:17:00 [facility] URINALYSIS 2021-01-20 Juliana Vinson [place] of 12:17:00 [facility] BASIC METABOLIC PANEL (NA, K, CL, 2021-01-20 ChignikRosendo [employer] of CO2, GLUCOSE, BUN, CREATININE, CA) 12:17:00 [facility] PROTHROMBIN TIME / INR 2021-01-20 ChignikJuliana [facility] it of 12:17:00 [facility] URINALYSIS 2021-01-20 [facility] of 12:17:00 [facility] BASIC METABOLIC PANEL (NA, K, CL, 2021-01-20 [place] [facility] of CO2, GLUCOSE, BUN, CREATININE, CA) 12:17:00 [facility] PROTHROMBIN TIME / INR 2021-01-20 ChignikJuliana [facility] ity of 12:17:00 [facility] URINALYSIS 2021-01-20 [facility] of 12:17:00 [facility] HB ECG ROUTINE & RHYTHM STRIP 2021-01-20 [facility] of 11:40:07 [facility] HB ECG ROUTINE & RHYTHM STRIP 2021-01-20 [facility] of 11:40:07 [facility] HOSPITAL ADMISSION 2021-01-20 Doctor Unassigned, [place] of 05:01:00 [place] [facility] ASSIGNMENT OF BENEFITS 2021-01-19 Doctor Unassigned, [facility] of 19:21:06 [place] [facility] CBC WITHOUT DIFF 2021-01-09 [facility] of 13:30:00 [facility] CBC WITHOUT DIFF 2021-01-09 [facility] of 13:30:00 [facility] MAGNESIUM 2021-01-09 [facility] of 10:10:00 [facility] BASIC METABOLIC PANEL (NA, K, CL, 2021-01-09 IreneEvita contreras [place] of CO2, GLUCOSE, BUN, CREATININE, CA) 10:10:00 [facility] CBC WITH DIFF 2021-01-09 [facility] of 10:10:00 [facility] MAGNESIUM 2021-01-09 [facility] of 10:10:00 [facility] BASIC METABOLIC PANEL (NA, K, CL, 2021-01-09 IreneEvita [employer] of CO2, GLUCOSE, BUN, CREATININE, CA) 10:10:00 [facility] CBC WITH DIFF 2021-01-09 [facility] 10:10:00 [facility] COLONOSCOPY (ENDO) 2021-01-08 [place] [id number] [facility] COLONOSCOPY (ENDO) 2021-01-08 [place] [id number] [facility] EGD (ENDO) 2021-01-08 [place] [id number] [facility] EGD (ENDO) 2021-01-08 [place] [id number] [facility] COLONOSCOPY 2021-01-08 [facility] 16:27:00 [facility] ESOPHAGOGASTRODUODENOSCOPY 2021-01-08 [facility] of 16:27:00 [facility] LOWER EXTREMITY SUPERFICIAL VEIN 2021-01-08 Bibiana [facility] - BY VASCULAR LAB 14:37:23 [facility] LOWER EXTREMITY SUPERFICIAL VEIN 2021-01-08 Chignik [facility] - BY VASCULAR LAB 14:37:23 [facility] CAROTID DUPLEX BILATERAL - BY 2021-01-08 Trell iversity of VASCULAR LAB 14:23:[address] [facility] CAROTID DUPLEX BILATERAL - BY 2021-01-08 CaiPapi iversity of VASCULAR LAB 14:23:[address] [facility] MAGNESIUM 2021-01-08 [facility] 10:23:00 [facility] BASIC METABOLIC PANEL (NA, K, CL, 2021-01-08 Orlin Richardson [employer] of CO2, GLUCOSE, BUN, CREATININE, CA) 10:23:00 [facility] CBC WITHOUT DIFF 2021-01-08 Maldonado Richardson [facility] 10:23:00 [facility] MAGNESIUM 2021-01-08 [facility] 10:23:00 [facility] BASIC METABOLIC PANEL (NA, K, CL, 2021-01-08 Orlin Richardson [employer] of CO2, GLUCOSE, BUN, CREATININE, CA) 10:23:00 [facility] CBC WITHOUT DIFF 2021-01-08 [facility] of 10:23:00 [facility] ACTIVATED PARTIAL THRMPLAS MACIEL 2021-01-07 Krystina Yousif U niversity of 20:05:00 [facility] ACTIVATED PARTIAL THRMPLAS MACIEL 2021-01-07 Krystina Yousif U niversity of 20:05:00 [facility] MAGNESIUM 2021-01-07 [facility] of 11:25:00 [facility] BASIC METABOLIC PANEL (NA, K, CL, 2021-01-07 Evita Irene tricia [place] of CO2, GLUCOSE, BUN, CREATININE, CA) 11:25:00 [facility] DIFF CONSULT INTERPRETATION 2021-01-07 Omar Irene Un iversity of 11:25:00 [facility] CBC WITH DIFF 2021-01-07 [facility] of 11:25:00 [facility] ACTIVATED PARTIAL THRMPLAS MACIEL 2021-01-07 Krystina Yousif U niversity of 11:25:00 [facility] MAGNESIUM 2021-01-07 [facility] of 11:25:00 [facility] BASIC METABOLIC PANEL (NA, K, CL, 2021-01-07 [facility] of CO2, GLUCOSE, BUN, CREATININE, CA) 11:25:00 [facility] DIFF CONSULT INTERPRETATION 2021-01-07 Omar Irene Un iversity of 11:25:00 [facility] CBC WITH DIFF 2021-01-07 [place], [facility] of 11:25:00 [facility] ACTIVATED PARTIAL THRMPLAS MACIEL 2021-01-07 Krystina Yousif U niversity of 11:25:00 [facility] ACTIVATED PARTIAL THRMPLAS MACIEL 2021-01-07 Ta Kumari U niversity of 00:40:00 [facility] ACTIVATED PARTIAL THRMPLAS MACIEL 2021-01-07 Ta Kumari U niversity of 00:40:00 [facility] CORONARY ANGIOGRAPHY 2021-01-[address] [facility] [address] 22:46[facility]12 [facility] 2021-01-[address] [facility] [address] 22:46:12 Tareq [facility] TRANSTHORACIC ECHO (TTE) COMPLETE 2021-01-06 [facility] of W/ CONTRAST 21:35:00 [facility] TRANSTHORACIC ECHO (TTE) COMPLETE 2021-01-06 [facility] of W/ CONTRAST 21:35:00 [facility] TROPONIN I 2021-01-06 [facility] of 14:32:00 [facility] TROPONIN I 2021-01-06 [facility] of 14:32:00 [facility] MAGNESIUM 2021-01-06 [facility] of 09:42:00 [facility] FERRITIN SERUM 2021-01-06 [facility] of 09:42:00 [facility] VITAMIN B12, LEVEL 2021-01-06 [facility] of 09:42:00 [facility] FOLATE 2021-01-06 [facility] of 09:42:00 [facility] TROPONIN I 2021-01-06 [facility] of 09:42:00 [facility] BASIC METABOLIC PANEL (NA, K, CL, 2021-01-06 [facility] of CO2, GLUCOSE, BUN, CREATININE, CA) 09:42:00 [facility] LIPID PANEL ([id number])(TOTAL 2021-01-06 [facility] sit of CHOLESTEROL, TRIGLYCERIDES, HDL) 09:42:00 [facility] IRON PANEL 2021-01-06 [facility] of 09:42:00 [facility] CBC WITH DIFF 2021-01-06 [facility] of 09:42:00 [facility] PROTHROMBIN TIME / INR 2021-01-06 [facility] 09:42:00 [facility] ACTIVATED PARTIAL THRMPLAS MACIEL 2021-01-06 [facility] niversity of 09:42:00 [facility] MAGNESIUM 2021-01-06 [facility] of 09:42:00 [facility] FERRITIN SERUM 2021-01-06 [facility] of 09:42:00 [facility] VITAMIN B12, LEVEL 2021-01-06 [facility] of 09:42:00 [facility] FOLATE 2021-01-06 [facility] of 09:42:00 [facility] TROPONIN I 2021-01-06 [facility] of 09:42:00 [facility] BASIC METABOLIC PANEL (NA, K, CL, 2021-01-06 [facility] CO2, GLUCOSE, BUN, CREATININE, CA) 09:42:00 [facility] LIPID PANEL ([id number])(TOTAL 2021-01-06 [facility] sity of CHOLESTEROL, TRIGLYCERIDES, HDL) 09:42:00 [facility] IRON PANEL 2021-01-06 [facility] of 09:42:00 [facility] CBC WITH DIFF 2021-01-06 [facility] of 09:42:00 [facility] PROTHROMBIN TIME / INR 2021-01-06 [facility] 09:42:00 [facility] ACTIVATED PARTIAL THRMPLAS MACIEL 2021-01-06 Benja [place] U niversity of 09:42:00 [facility] HB ECG ROUTINE & RHYTHM STRIP 2021-01-06 Krystina Yousif Un iversity of 09:21:54 [facility] HB ECG ROUTINE & RHYTHM STRIP 2021-01-06 Benja Krystina Un iversity of 09:21:54 [facility] HB ECG ROUTINE & RHYTHM STRIP 2021-01-06 Vadim Tafoya U niversity of 03:24:57 [facility] HB ECG ROUTINE & RHYTHM STRIP 2021-01-06 Vadim Tafoya U niversity of 03:24:57 [facility] COVID-19 (ID NOW RAPID TESTING) 2021-01-06 Vadim Tafoya [place] of 03:23:00 [facility] LAB ONLY COVID INTERPRETATION 2021-01-06 Vadim Tafoya U niversity of 03:23:00 [facility] COVID-19 (ID NOW RAPID TESTING) 2021-01-06 Vadim Tafoya [place] of 03:23:00 [facility] LAB ONLY COVID INTERPRETATION 2021-01-06 Vadim Tafoya U niversity of 03:23:00 [facility] XR CHEST 1 VW 2021-01-06 Vadim Tafoya [place] of 02:26:45 [facility] XR CHEST 1 VW 2021-01-06 Vadim Tafoya [place] of 02:26:45 [facility] LIPASE 2021-01-06 Vadim Tafoya [place] of 02:10:00 [facility] TROPONIN I 2021-01-06 Vadim Tafoya [place] of 02:10:00 [facility] THYROID STIMULATING HORMONE 2021-01-06 Krystina Yousif [facility] ersity of 02:10:00 [facility] COMP. METABOLIC PANEL ([id number]) 2021-01-06 Vadim Tafoya U niversity of 02:10:00 [facility] CBC WITH DIFF 2021-01-06 Vadim Tafoya [place] of 02:10:00 [facility] GLYCOSYLATED HEMOGLOBIN (A1C) 2021-01-06 Krsytina Yousif iversity of 02:10:00 [facility] PROTHROMBIN TIME / INR 2021-01-06 Vadim Tafoya [facility] ty of 02:10:00 [facility] ACTIVATED PARTIAL THRMPLAS MACIEL 2021-01-06 Vadim Tafoya [place] of 02:10:00 [facility] LIPASE 2021-01-06 Vadim Tafoya [place] of 02:10:00 [facility] TROPONIN I 2021-01-06 Vadim Tafoya [place] of 02:10:00 [facility] THYROID STIMULATING HORMONE 2021-01-06 Krystina Yousif [facility] ersity of 02:10:00 [facility] COMP. METABOLIC PANEL ([id number]) 2021-01-06 Vadim Tafoya U niversity of 02:10:00 [facility] CBC WITH DIFF 2021-01-06 Vadim Tafoya [place] of 02:10:00 [facility] GLYCOSYLATED HEMOGLOBIN (A1C) 2021-01-06 Krystina Yousif Un iversity of 02:10:00 [facility] PROTHROMBIN TIME / INR 2021-01-06 Vadim Tafoya Univers[facility] of 02:10:00 [facility] ACTIVATED PARTIAL THRMPLAS MACIEL 2021-01-06 Vadim Tafoya [place] of 02:10:00 [facility] HB ECG ROUTINE & RHYTHM STRIP 2021-01-06 Vadim Tafoya U niversity of 02:02:47 [facility] HB ECG ROUTINE & RHYTHM STRIP 2021-01-06 Vadim Tafoya U niversity of 02:02:47 [facility] NOTICE OF PRIVACY PRACTICES 2021-01-06 Doctor Unassigned, U niversity of 01:44:20 [place] [facility] NOTICE OF PRIVACY PRACTICES 2021-01-06 Doctor Unassigned, U niversity of 01:44:20 [place] [facility] CONSENT/REFUSAL FOR DIAGNOSIS AND 2021-01-06 Doctor [facility] 01:43:54 [place] [facility] AGREEMENTS AUTHORIZATIONS AND 2021-01-05 Doctor Chapin [facility] IRREVOCABLE ASSIGNMENTS (FORM 05:01:00 [place] [facility] 2000) Branch AGREEMENTS AUTHORIZATIONS AND 2021-01-05 Doctor Vivianssrobbin [facility] IRREVOCABLE ASSIGNMENTS (FORM 05:01:00 [place] [facility]) Branch HOSPITAL ADMISSION 2021-01-05 Doctor Chapin, [facility] of 05:01:00 [place] [facility] Plan of Care Planned Activity Planned Date Details Comments Source Future Scheduled 2022-01-20 Depression screening Uni versity of Test 00:00:00 (procedure) [code = [place] Me [place]ical 517661493] Branch Future Scheduled 2003 Medicare Annual Universi ty of Test 00:00:00 Wellness Visit [facility] (procedure) [code = Branch [id number]] Future Scheduled 2003 PNEUMOCOCCAL University of Test 00:00:00 VACCINES 65+ (1 of 1 [place] edical - PPSV23) [code = Branch PNEUMOCOCCAL VACCINES 65+ (1 of 1 - PPSV23)] Future Scheduled 1988 Zoster Recombinant Unive rsity of Test 00:00:00 Vaccine (SHINGRIX) [place] Med ical (1 of 2) [code = Branch Zoster Recombinant Vaccine (SHINGRIX) (1 of 2)] Future Scheduled 1957 DTaP,Tdap,and Td Univers ity of Test 00:00:00 Vaccines (1 - Tdap) [place] [facility] [place] [code = Branch DTaP,Tdap,and Td Vaccines (1 - Tdap)] Future Scheduled ABG+COOX+NA+K+GLU+CA EVERY 4 HOURS Un iversity of Test 2+ (While Intubated) (START TIME Aisha beckman [code = 36046] ADJUSTABLE) for Branch 24 Hours starting 01/20/2021 until 01/21/2021, 3 completed Encounters Start End Encounter Admission Attending Care Care Encounter Source Date/Time Date/Time Type Type Clinicians Facility Department ID 2021-07-25 Emergency [facility] [id number] Univers 22:08:24 ity [facility] 2021-07-25 Emergency [facility] [id number] Univers 17:56:31 [facility] 2021-07-25 Inpatient R DEBORAH, [facility] SCT [id number] Univers 15:38:15 OBED [facility] 2021-10-08 2021-10-08 Outpatient R CASPER, [facility] [id number] Univers 14:20:00 14:20:00 KATHERINE [id number] bricey o [facility] 2021-10-06 2021-10-06 Outpatient R CASPER, [facility] [id number] -[id number] Univers 15:20:00 15:20:00 KATHERINE [id number] bricey o [facility] 2021-10-06 2021-10-06 Outpatient R CASPER, [facility] [id number] Univers 15:20:00 15:20:00 KATHERINE narvaez o [facility] 2021-08-27 2021-08-27 Outpatient R DAVIS [facility] [id number] Univers 15:30:00 15:30:00 JACE lacey [facility] 2021-08-27 2021-08-27 Imm/Inj Nurse, Adc Pob Immunization [facility] 1.2.840.114 [id number] Univers 14:24:04 14:24:15 Visit Jace Cannon 350.1.13 .10 [facility] ANI 4.2.7.2.686 Quin CURTIS [phone] Dc dical NAL 421 Branch BUILDING 2021-04-06 2021-04-06 Outpatient R CASPER, [facility] [id number] -[id number] Univers 15:20:00 15:20:00 KATHERINE [id number] ity o [facility] 2021-04-06 2021-04-06 Outpatient R CASPER, [facility] [id number] Univers 15:20:00 15:20:00 KATHERINE ity o f [facility] 2021-04-06 2021-04-06 Office Casper, [facility] 1.2.840.114 [id number] Univers 14:51:05 15:19:27 Visit Katherine Marito 350.1.13.10 [place] [phone] Dc dical [facility] 059 [facility] 2021-02-24 2021-02-24 Transition Karthikeyan Fierro 1.2.840.114 [id number] 00:00:00 00:00:00 of Care Kade Santos [place] 350.1.13.10 [place] 4.2.7.2.686 [phone] [facility] 2021-02-24 2021-02-24 Transition Karthikeyan Fierro 1.2.840.114 [id number] [facility] 00:00:00 00:00:00 of Care Kade Santos [place] 350.1.13.10 [phone] [address] 2021-02-23 2021-02-23 Urgent Provider, [facility] 1.2.233.402 [id number] 15:56:41 16:41:19 Care [facility] 350.1.13.10 Care [place] 4.2.7.2.686 Professio [phone] nal [address] 2021-02-23 2021-02-23 Urgent Provider, [facility] 1.2.840.114 [id number] Univers 15:56:41 16:41:19 Care Green, [facility] 350.1.13.10 ity of [place] 4.2.7.2.686 [place] Professio [phone] [facility] [address] [place] [address] 2021-02-23 2021-02-23 Outpatient R [facility] [id number] Univers 16:00:00 16:00:00 [id number] [facility] 2021-02-23 2021-02-23 Outpatient R SYED [facility] [id number] Univers 16:00:00 16:00:00 TARI ity [facility] 2021-02-23 2021-02-23 Refjocelin Lynch [facility] 1.2.840.114 [id number] Univers 00:00:00 00:00:00 [facility] 350.1.13.10 it y of [place] 4.2.7.2.686 [place] [facility] [phone] [address] Office [facility] One 2021-02-20 2021-02-21 Emergency Kassidy Del Toro [facility] 1.2.840.1 14 [id number] 16:49:00 15:19:00 Catracho Husain 350.1.13.10 [place] 4.2.7.2.686 [place] [phone] [facility] 2021-02-20 2021-02-21 Emergency Kassidy Del Toro [facility] 1.2.840.1 14 [id number] [facility] 16:49:00 15:19:00 Catracho Husain 350.1.13.10 ity of [place] 4.2.7.2.686 [facility] [place] [phone] [address] 2021-02-11 2021-02-11 Office Radhaen, UNIVERS 1.2.840.114 [id number] 12:54:32 13:57:50 Visit Obed T Y HEALTH 350.1.13.10 CLINICS [phone] [facility] 2021-02-11 2021-02-11 Office Roughneen, UNIVERSIT 1.2.840.114 [id number] Univers 12:54:32 13:57:50 Visit Obed T Y HEALTH 350.1.13.10 ity of CL[place] [phone] [address] 2021-02-11 2021-02-11 Outpatient R [facility] [id number] -[id number] Univers 13:30:00 13:30:00 [id number] [facility] 2021-02-11 2021-02-11 Outpatient R [facility] [id number] Univers 13:30:00 13:30:00 ity of [facility] 2021-02-01 2021-02-01 Transition Karthikeyan Fierro 1.2.840.114 [id number] Univers 00:00:00 00:00:00 of Care Kade Santos [place] 350.1.13.10 it[place] [phone] [facility] 403 Branch 2021-01-30 2021-01-30 Emergency [facility] 1.2.840.114 [id number] Univers 15:25:00 17:12:00 Jumana Devi 350.1.13.10 it[place] [phone] [facility] 084 Branch 2021-01-29 2021-01-29 Transition Karthikeyan Fierro 1.2.840.114 [id number] Univers 00:00:00 00:00:00 of Care Kade Santos [place] 350.1.13.10 it[place] [phone] [facility] 403 Branch 2021-01-20 2021-01-28 Hospital OmkardemetriusSri tsai 1.2.840.114 [id number] Univers 06:23:00 12:20:00 Encounter Obed Tesfaye 350.1.13.10 ity of Hospital 4.2.7.2.686 [place] [phone] [facility] 089 Branch 2021-01-20 2021-01-20 Surgery Sri Cabrera 1.2.840.114 [id number] Univers 12:04:00 17:00:00 Obed Khalily 350.1.13.10 ity of Hospital 4.2.7.2.686 [place] [phone] [facility] 103 Branch 2021-01-20 2021-01-20 Orders Doctor DE SOUZA 1.2.840.114 [id number] Univers 00:00:00 00:00:00 Only Unassigned, BRIEN 350.1.13.10 ity of [place] [facility] 4.2.7.2.686 [place] [phone] [facility] 009 Branch 2021-01-19 2021-01-19 Outpatient R DEBORAH [facility] [id number] Univers 15:00:00 15:00:00 OBED ity of [facility] 2021-01-19 2021-01-19 Laboratory Only, Adc Test [facility] 1.2.840. 114 [id number] Univers 14:23:46 14:38:46 Only Obed Cabrera 350.1.13 .10 it[place] of [place] [phone] [facility] 353 Branch 2021-01-19 2021-01-19 Orders Doctor AP 1.2.840.114 [id number] Univers 00:00:00 00:00:00 Only Unassigned, BRIEN 350.1.13.10 ity of [place] [facility] 4.2.7.2.686 [place] [phone] [facility] 009 Branch 2021-01-11 2021-01-11 Case AP Vinson 1.2.840.114 [id number] Univers 00:00:00 00:00:00 Management Juliana TESFAYE 350.1.13.10 ity of [facility] 4.2.7.2.686 [place] [phone] [facility] 037 Branch 2021-01-11 2021-01-11 Transition Karthikeyan Whiting 1.2.840.114 [id number] Univers 00:00:00 00:00:00 of Care Peggy [place] 350.1.13.10 i [place] [phone] [facility] 403 Branch 2021-01-05 2021-01-09 Hospital Vadim Tafoya 1.2.840. 114 [id number] Univers 20:49:00 20:10:00 Encounter Kuldip Sullivan 350.1.1 3.10 ity of [facility] 4.2.7.2.686 [place] [phone] [facility] 090 Branch 2021-01-08 2021-01-08 [facility] 1.2.555.759 [id number] Univers 12:25:00 13:40:00 Monty ICAL 350.1.13.10 it y of [facility] [place] 4.2.7.2.686 [place] BLDG [phone] [facility] 020 Branch 2021-01-05 2021-01-05 Emergency X MICHELET [facility] ERT [id number] Univers 20:49:00 20:49:00 WAJESSLI [facility] 2021-01-05 2021-01-05 Orders Doctor AP 1.2.840.114 [id number] Univers 00:00:00 00:00:00 Only Unassigned, BRIEN 350.1.13.10 ity of [place] [facility] 4.2.7.2.686 [place] [phone] [facility] [address] [place] 2020-12-20 2020-12-20 [facility] [id number] Univers 12:35:00 12:35:00 MARC [facility] 2020-11-22 2020-11-22 [facility] [id number] Univers 12:15:00 12:15:00 [facility] Results Test Description Test Time Test Comments Results Result Comments Source N-TERMINAL PRO-BNP 2021-02-21 15:25:04 Test Item Value Reference Range Interpretation Comme nts NT-proBNP (test code = 2100 pg/mL See_Comment H [Aut omated message] The [id number]) system which ge nerated this result tra nsmitted reference range : <=450. The reference r jaswinder was not used to int erpret this result as rafael l/abnormal. CARLIE (test code = CARLIE) Biotin has been reported to cause a negative bias, interpret results relative to patient's use of biotin. Lab Interpretation (test Abnormal code = 91836-5) [facility]A1C)2021-02-21 15:23:53 Test Item Value Reference Range Interpretation Comments HGB A1C (test code = 4.8 % 4.0-5.7 4548-4) CARLIE (test code = CARLIE) Reference RangesNormal: <5.7%Prediabetes: 5.7 - 6.4%Diabetes: > 6.5% Lab Interpretation (test Normal code = 97108-3) [facility]IP[facility] (88702)(TOTAL CHOLESTEROL, TRIGLYCERIDES, HDL)2021-02-21 15:13:45 Test Item Value Reference Range Interpretation Comments CHOL (test code = 104 mg/dL 120-200 L 3385933287) HDL (test code = 30 mg/dL >40 L 1944184101) HDLC RATIO (test code = See_Comment [Au tomated message] 3028868620) The system [employer] generated this result transmit thuy reference range : <=5.0. The refe rence range was not u sed to interpret th is result as normal/abnormal . TRIG (test code = 60 mg/dL 30-170 5763914135) LDL CHOL (test code = 62 mg/dL See_Comment [Auto mated message] 76900-5) The system [employer] generated this result transmit thuy reference range : <=160. The refe rence range was not u sed to interpret th is result as normal/abnormal . VLDL (test code = 12 mg/dL 5-60 8598364390) Lab Interpretation (test Abnormal code = 59769-8) [facility] [id number] 11:35:53 Test Item Value Reference Range Interpretation Comments TROPONIN I (test 0.007 ng/mL See_Comment [Automated code = 2866643320) message] The system which generated this result transmitted reference range : <=0.034. The reference range was not used to interpret this result as normal/abnormal . CARLIE (test code = Equal or Less than CARLIE) 0.034 ng/ml---Normal ?Note: Cardiac troponin begins to rise 3-4 hours after the onset of ischemia. Repeat in 4-6 hours if the sample was drawn within 3-4 hours of the onset of the symptom and found normal. Between 0.035 and 0.120 ng/mL--- Borderline. Questionable myocardial injury or necrosis ? ?Note: Serial measurement may be necessary to confirm or exclude the diagnosis of myocardial injury or necrosis; Clinical correlation (symptoms, EKGs, imaging studies, and others) required; Repeat in 4-6 hours if clinically indicated. ? Equal or Higher than 0.121 ng/mL---Abnormal. Myocardial Injury or Necrosis Likely ? Biotin has been reported to cause a negative bias, interpret results relative to patient's use of biotin. ? Lab Interpretation Normal (test code = 99742-7) [facility] Metabolic Panel (NA, K, CL, CO2, GLUCOSE, BUN, CREATININE, CA)2021-02-21 11:17:55 Test Item Value Reference Range Interpretation Comments NA (test code = 139 mmol/L 135-145 2815048347) K (test code = 3.8 mmol/L 3.5-5.0 0797592619) CL (test code = 106 mmol/L 98-108 6275683248) CO2 TOTAL (test code = 29 mmol/L 23-31 9694966320) AGAP (test code = 2-16 2301630994) BUN (test code = 10 mg/dL 7-23 5584376648) GLUCOSE (test code = 81 mg/dL 70-110 9466580452) CREATININE (test code = 0.43 mg/dL 0.60-1.25 L 5004960544) CALCIUM (test code = 8.9 mg/dL 8.6-10.6 0366622752) eGFR (test code = mL/min/1.73m2 2011685770) CARLIE (test code = CARLIE) Association of Glomerular Filtration Rate (GFR) and Staging of Kidney Disease* + --+ --+ ------+| GFR (mL/min/1.73 m2) ?| With Kidney Damage ?| ?Without Kidney Damage+ --------+ --------+ +| ?>90 ?| ?Stage one ?| ? Normal ?+ ---+ ---+ -------+| ?60-89 ?| ?Stage two ?| ? Decreased GFR ? + --+ --+ ------+| ?30-59 ?| ?Stage three ?| ? Stage three ? + --+ --+ ------+| ?15-29 ?| ?Stage four ? | ? Stage four ?+ ---+ ---+ -------+| ?<15 (or dialysis) ? ?| ?Stage five ? | ? Stage five ?+ ---+ ---+ -------+ *Each stage assumes the associated GFR level has been in effect for at least three months. ?Stages 1 to 5, with or without kidney [...] tests). Lab Interpretation Abnormal (test code = 73622-5) [facility] [id number] 11:17:55 Test Item Value Reference Range Interpretation Comments MAGNESIUM (test code = 1817068650) 2.0 mg/dL 1.7-2.4 Lab Interpretation (test code = Normal 21684-8) [facility] (ID NOW RAPID TESTING)2021-02-21 00:34:36 Test Item Value Reference Range Interpretation Comments SARS-CoV-2 Rapid ID NOW Not Detected Not Detected (test code = 02308-6) CARLIE (test code = CARLIE) ID NOW COVID-19 Assay is an isothermal nucleic acid amplification test intended for the qualitative detection of nucleic acid from SARS-CoV-2 viral RNA in nasopharyngeal ([employer]) specimens. It is used under Emergency Use Authorization (EUA) by FDA. The limit of detection (LOD) of the assay is 125 Genome Equivalents/mL. A positive result is indicative of the presence of SARS-CoV-2 RNA. ?Clinical correlation with patient history and other diagnostic information is necessary to determine patient infection status. A negative (Not Detected) result does not preclude SARS-CoV-2 infection. In patients with clinical symptoms and other tests that are consistent with SARS-CoV-2 infection, negative results should be treated as presumptive negative and a new specimen should be tested with alternative PCR molecular test. Invalid: Please collect a new specimen for repeat patient testing if clinically indicated. Lab Interpretation Normal (test code = 96823-8) [facility] [id number] 22:56:28 Test Item Value Reference Range Interpretation Comments TROPONIN I (test 0.004 ng/mL See_Comment [Automated code = 4329606333) message] The system which generated this result transmitted reference range : <=0.034. The reference range was not used to interpret this result as normal/abnormal . CARLIE (test code = Equal or Less than CARLIE) 0.034 ng/ml---Normal ?Note: Cardiac troponin begins to rise 3-4 hours after the onset of ischemia. Repeat in 4-6 hours if the sample was drawn within 3-4 hours of the onset of the symptom and found normal. Between 0.035 and 0.120 ng/mL--- Borderline. Questionable myocardial injury or necrosis ? ?Note: Serial measurement may be necessary to confirm or exclude the diagnosis of myocardial injury or necrosis; Clinical correlation (symptoms, EKGs, imaging studies, and others) required; Repeat in 4-6 hours if clinically indicated. ? Equal or Higher than 0.121 ng/mL---Abnormal. Myocardial Injury or Necrosis Likely ? Biotin has been reported to cause a negative bias, interpret results relative to patient's use of biotin. ? Lab Interpretation Normal (test code = 33964-4) [facility] 1 [id number] 22:54:31 Interval removal of the bilateral chest tubes. Trace left pleural effusion. Preliminary Report Dictated by Resident: Anita Jernigan I, Citlalli Osborn MD., have reviewed this study and agree withtheabove report.EXAM: XR CHEST 1 VW 02/20/2021 5:03 PM HISTORY: 80 years-old Male with chest pain COMPARISON: Multiple chest plain films with the most recent dated 01/25/2021 TECHNIQUE: AP chest radiograph. FINDINGS: Midline sternotomy sutures. Interval removal of the bilateral chest tubes.Surgical clips are unchanged. Lungs are well-expanded without focal consolidation or pneumothorax. Traceleft pleural effusion is unchanged. The cardiomediastinal silhouette is normal in size. No acute osseous abnormalities. [facility], Radiant Results Inft User - 02/20/2021 5:55 PM CDT EXAM: XR CHEST 1 VW 02/20/2021 5:03 PMHISTORY: 80 years-old Male with chest pain COMPARISON: Multiple chest plain films with the most recent dated 01/25/2021TECHNIQUE: AP chest r adiograph.FINDINGS:Midline sternotomy sutures. Interval removal of the bilateral chest tubes.Surgical clips are unchanged.Lungs are well-expanded without focal consolidation or pneumothorax. Traceleft pleural effusion is unchanged.The cardiomediastinal silhouette is normal in size.No acute osseous abno rmalities.IMPRESSIONInterval removal of the bilateral chest tubes.Trace left pleural effusion.Preliminary Report Dictated by Resident: Anita Miller, Citlalli Oropeza MD., have reviewed this study and agree with theabove report.[facility] Metabolic Panel (NA, K, CL, CO2, GLUCOSE, BUN, CREATININE, CA)2021-02-20 22:45:11 Test Item Value Reference Range Interpretation Comments NA (test code = 140 mmol/L 135-145 8886097336) K (test code = 4.0 mmol/L 3.5-5.0 7729928706) CL (test code = 105 mmol/L 98-108 2551904934) CO2 TOTAL (test code = 27 mmol/L 23-31 3672851745) AGAP (test code = 2-16 9528052100) BUN (test code = 11 mg/dL 7-23 3251239352) GLUCOSE (test code = 99 mg/dL 70-110 4015322680) CREATININE (test code = 0.53 mg/dL 0.60-1.25 L 7079229247) CALCIUM (test code = 9.4 mg/dL 8.6-10.6 8008720161) eGFR (test code = mL/min/1.73m2 5105668141) CARLIE (test code = CARLIE) Association of Glomerular Filtration Rate (GFR) and Staging of Kidney Disease* + --+ --+ ------+| GFR (mL/min/1.73 m2) ?| With Kidney Damage ?| ?Without Kidney Damage+ --------+ --------+ +| ?>90 ?| ?Stage one ?| ? Normal ?+ ---+ ---+ -------+| ?60-89 ?| ?Stage two ?| ? Decreased GFR ? + --+ --+ ------+| ?30-59 ?| ?Stage three ?| ? Stage three ? + --+ --+ ------+| ?15-29 ?| ?Stage four ? | ? Stage four ?+ ---+ ---+ -------+| ?<15 (or dialysis) ? ?| ?Stage five ? | ? Stage five ?+ ---+ ---+ -------+ *Each stage assumes the associated GFR level has been in effect for at least three months. ?Stages 1 to 5, with or without kidney [...] tests). Lab Interpretation Abnormal (test code = 80939-8) [facility]cos[facility]inalysis2021-05-29 22:28:37 Test Item Value Reference Range Interpretation Comments APPEARANCE (test code = Clear Clear 0925699902) COLOR (test code = Yellow Yellow 2626707222) PH (test code = 4.8-8.0 1003599615) SP GRAVITY (test code = 1.003-1.030 0098619133) GLU U QUAL (test code = Normal Normal 0334831610) BLOOD (test code = Negative Negative 2579141315) KETONES (test code = Negative Negative 5625973830) PROTEIN (test code = Negative Negative 2887-8) UROBILIN (test code = 2.0 mg/dL Normal A 3953798096) BILIRUBIN (test code = Negative Negative 0718402011) NITRITE (test code = Negative Negative 7073400862) LEUK ALEKSEY (test code = Negative Negative 9699442136) RBC/HPF (test code = See_Comment [Autom ated message] 5372412253) The system [employer] generated this result transmit thuy reference range : 0 - 3 HPF. The refe rence range was not u sed to interpret th is result as normal/abnormal . WBC/HPF (test code = See_Comment [Autom ated message] 0710362826) The system whic h generated this result transmit thuy reference range : 0 - 5 HPF. The refe rence range was not u sed to interpret th is result as normal/abnormal . BACTERIA (test code = Negative Negative 4846674625) MUCOUS (test code = Slight Negative LPF A 7758310877) Lab Interpretation (test Abnormal code = 96659-5) [facility] with [id number] 22:21:10 Test Item Value Reference Range Interpretation Comments WBC (test code = See_Comment [Automated 6690-2) message] The sy stem which generated this result transmitted reference range : 4.20 - 10.70 10*3/?L. The reference range was not used to interpret this result as normal/abnormal . RBC (test code = See_Comment L [Automated 789-8) message] The sy stem which generated this result transmitted reference range : 4.26 - 5.52 10*6/?L. The reference range was not used to interpret this result as normal/abnormal . HGB (test code = 11.4 g/dL 12.2-16.4 L 718-7) HCT (test code = 37.3 % 38.4-49.3 L 4544-3) MCV (test code = 96.9 fL 81.7-95.6 H 787-2) MCH (test code = 29.6 pg 26.1-32.7 785-6) MCHC (test code = 30.6 g/dL 31.2-35.0 L 786-4) RDW-SD (test code = 53.2 fL 38.5-51.6 H 63082-8) RDW-CV (test code = 14.9 % 12.1-15.4 788-0) PLT (test code = See_Comment [Automated 777-3) message] The sy stem which generated this result transmitted reference range : 150 - 328 10*3/ ?L. The reference r jaswinder was not used to interpret this result as normal/abnormal . MPV (test code = 9.3 fL 9.8-13.0 L 11312-1) NRBC/100 WBC (test See_Comment [Automat ed code = 4552839153) message] The system which generated this result transmitted reference range : 0.0 - 10.0 /100 WBCs. The refer ence range was not u sed to interpret th is result as normal/abnormal . NRBC x10^3 (test code <0.01 See_Comment [Auto mated = 9576994923) message] The s ystem which generated this result transmitted reference range : 10*3/?L. The reference range was not used to interpret this result as normal/abnormal . GRAN MAT (NEUT) % 64.7 % (test code = 770-8) IMM GRAN % (test code 0.40 % = 1367264859) LYMPH % (test code = 20.0 % 736-9) MONO % (test code = 9.3 % 5905-5) EOS % (test code = 4.5 % 713-8) BASO % (test code = 1.1 % 706-2) GRAN MAT x10^3(ANC) 3.49 10*3/uL 1.99-6.95 (test code = 8796526440) IMM GRAN x10^3 (test <0.03 0.00-0.06 code = 6299213277) LYMPH x10^3 (test code 1.08 10*3/uL 1.09-3.23 L = 731-0) MONO x10^3 (test code 0.50 10*3/uL 0.36-1.02 = 742-7) EOS x10^3 (test code = 0.24 10*3/uL 0.06-0.53 711-2) BASO x10^3 (test code 0.06 10*3/uL 0.01-0.09 = 704-7) Lab Interpretation Abnormal (test code = 59833-0) [facility]. METABOLIC PANEL (34224)2021-01-30 21:54:34 Test Item Value Reference Range Interpretation Comments NA (test code = 139 mmol/L 135-145 4642192996) K (test code = 4.0 mmol/L 3.5-5.0 1618347018) CL (test code = 104 mmol/L 98-108 9224871127) CO2 TOTAL (test code = 26 mmol/L 23-31 7474040675) AGAP (test code = 2-16 3494078998) BUN (test code = 13 mg/dL 7-23 9147954622) GLUCOSE (test code = 127 mg/dL 70-110 H 0607552174) CREATININE (test code = 0.57 mg/dL 0.60-1.25 L 0763324570) TOTAL BILI (test code = 0.9 mg/dL 0.1-1.1 0002426050) CALCIUM (test code = 8.6 mg/dL 8.6-10.6 2888172906) T PROTEIN (test code = 5.5 g/dL 6.3-8.2 L 3198881506) ALBUMIN (test code = 3.3 g/dL 3.5-5.0 L 5441766735) ALK PHOS (test code = 55 U/L 34-122 2988225840) ALTv (test code = 30 U/L 5-50 1742-6) AST(SGOT) (test code = 36 U/L 13-40 8753291249) eGFR (test code = mL/min/1.73m2 2428566310) CARLIE (test code = CARLIE) Association of Glomerular Filtration Rate (GFR) and Staging of Kidney Disease* + --+ --+ ------+| GFR (mL/min/1.73 m2) ?| With Kidney Damage ?| ?Without Kidney Damage+ --------+ --------+ +| ?>90 ?| ?Stage one ?| ? Normal ?+ ---+ ---+ -------+| ?60-89 ?| ?Stage two ?| ? Decreased GFR ? + --+ --+ ------+| ?30-59 ?| ?Stage three ?| ? Stage three ? + --+ --+ ------+| ?15-29 ?| ?Stage four ? | ? Stage four ?+ ---+ ---+ -------+| ?<15 (or dialysis) ? ?| ?Stage five ? | ? Stage five ?+ ---+ ---+ -------+ *Each stage assumes the associated GFR level has been in effect for at least three months. ?Stages 1 to 5, with or without kidney [...] tests). Lab Interpretation Abnormal (test code = 42962-2) [facility] WITH [id number] 21:43:31 Test Item Value Reference Range Interpretation Comments WBC (test code = See_Comment [Automated 6690-2) message] The sy stem which generated this result transmitted reference range : 4.20 - 10.70 10*3/?L. The reference range was not used to interpret this result as normal/abnormal . RBC (test code = See_Comment L [Automated 789-8) message] The sy stem which generated this result transmitted reference range : 4.26 - 5.52 10*6/?L. The reference range was not used to interpret this result as normal/abnormal . HGB (test code = 9.1 g/dL 12.2-16.4 L 718-7) HCT (test code = 29.2 % 38.4-49.3 L 4544-3) MCV (test code = 97.3 fL 81.7-95.6 H 787-2) MCH (test code = 30.3 pg 26.1-32.7 785-6) MCHC (test code = 31.2 g/dL 31.2-35.0 786-4) RDW-SD (test code = 54.0 fL 38.5-51.6 H 04243-0) RDW-CV (test code = 15.1 % 12.1-15.4 788-0) PLT (test code = See_Comment H [Automated 777-3) message] The sy stem which generated this result transmitted reference range : 150 - 328 10*3/ ?L. The reference r jaswinder was not used to interpret this result as normal/abnormal . MPV (test code = 9.4 fL 9.8-13.0 L 78839-0) NRBC/100 WBC (test See_Comment [Automat ed code = 6279657120) message] The system which generated this result transmitted reference range : 0.0 - 10.0 /100 WBCs. The refer ence range was not u sed to interpret th is result as normal/abnormal . NRBC x10^3 (test code <0.01 See_Comment [Auto mated = 3134180137) message] The s ystem which generated this result transmitted reference range : 10*3/?L. The reference range was not used to interpret this result as normal/abnormal . GRAN MAT (NEUT) % 76.6 % (test code = 770-8) IMM GRAN % (test code 1.00 % = 6725868613) LYMPH % (test code = 13.8 % 736-9) MONO % (test code = 6.0 % 5905-5) EOS % (test code = 1.9 % 713-8) BASO % (test code = 0.7 % 706-2) GRAN MAT x10^3(ANC) 5.25 10*3/uL 1.99-6.95 (test code = 3069067360) IMM GRAN x10^3 (test 0.07 10*3/uL 0.00-0.06 H code = 5044839578) LYMPH x10^3 (test code 0.95 10*3/uL 1.09-3.23 L = 731-0) MONO x10^3 (test code 0.41 10*3/uL 0.36-1.02 = 742-7) EOS x10^3 (test code = 0.13 10*3/uL 0.06-0.53 711-2) BASO x10^3 (test code 0.05 10*3/uL 0.01-0.09 = 704-7) Lab Interpretation Abnormal (test code = 13399-6) [facility] GLUCOSE (AUTOMATED)2021-01-28 13:37:42 Test Item Value Reference Range Interpretation Comments POCT GLU (test code = 124 mg/dL 70-110 H Notifi ed Provider [id number]) Lab Interpretation (test Abnormal code = 39612-8) [facility] GLUCOSE (AUTOMATED)2021-01-28 13:37:42 Test Item Value Reference Range Interpretation Comments POCT GLU (test code = 124 mg/dL 70-110 H Notifi ed Provider [id number]) Lab Interpretation (test Abnormal code = 86202-3) [facility] GLUCOSE (AUTOMATED)2021-01-28 01:38:13 Test Item Value Reference Range Interpretation Comments POCT GLU (test code = 0986471649) 130 mg/dL 70-110 H Lab Interpretation (test code = Abnormal 18485-9) [facility] GLUCOSE (AUTOMATED)2021-01-28 01:38:13 Test Item Value Reference Range Interpretation Comments POCT GLU (test code = 7985539739) 130 mg/dL 70-110 H Lab Interpretation (test code = Abnormal 00430-8) [facility] GLUCOSE (AUTOMATED)2021-01-27 23:28:05 Test Item Value Reference Range Interpretation Comments POCT GLU (test code = 95 mg/dL 70-110 Notifi ed Provider [id number]) Lab Interpretation (test Normal code = 25736-4) [facility] GLUCOSE (AUTOMATED)2021-01-27 23:28:05 Test Item Value Reference Range Interpretation Comments POCT GLU (test code = 95 mg/dL 70-110 Notifi ed Provider [id number]) Lab Interpretation (test Normal code = 34650-0) [facility] GLUCOSE (AUTOMATED)2021-01-27 18:51:48 Test Item Value Reference Range Interpretation Comments POCT GLU (test code = 5629410349) 95 mg/dL 70-110 Lab Interpretation (test code = Normal 10208-0) [facility] GLUCOSE (AUTOMATED)2021-01-27 18:51:48 Test Item Value Reference Range Interpretation Comments POCT GLU (test code = 2610890205) 95 mg/dL 70-110 Lab Interpretation (test code = Normal 57375-1) [facility] METABOLIC PANEL (NA, K, CL, CO2, GLUCOSE, BUN, CREATININE, CA)2021-01-27 15:12:56 Test Item Value Reference Range Interpretation Comments NA (test code = 138 mmol/L 135-145 2384909476) K (test code = 4.0 mmol/L 3.5-5.0 6184883495) CL (test code = 103 mmol/L 98-108 9159093478) CO2 TOTAL (test code = 29 mmol/L 23-31 3380286604) AGAP (test code = 6 2-16 1722827880) BUN (test code = 13 mg/dL 7-23 6346582527) GLUCOSE (test code = 135 mg/dL 70-110 H 3127280147) CREATININE (test code = 0.55 mg/dL 0.60-1.25 L 0210314462) CALCIUM (test code = 8.2 mg/dL 8.6-10.6 L 0251626107) eGFR (test code = 142.6 mL/min/1.73m2 8205314101) CARLIE (test code = CARLIE) Association of [...] tests). Lab Interpretation Abnormal (test code = 10692-8) [facility]:12:56 Test Item Value Reference Range Interpretation Comments MAGNESIUM (test code = 7807817138) 2.2 mg/dL 1.7-2.4 Lab Interpretation (test code = Normal 33891-0) [facility] 15:12:56 Test Item Value Reference Range Interpretation Comments PHOSPHORUS (test code = 8181070350) 2.2 mg/dL 2.5-5.0 L Lab Interpretation (test code = Abnormal 82862-6) [facility] (NA, K, CL, CO2, GLUCOSE, BUN, CREATININE, CA)2021-01-27 15:12:56 Test Item Value Reference Range Interpretation Comments NA (test code = 138 mmol/L 135-145 3724683130) K (test code = 4.0 mmol/L 3.5-5.0 7179799932) CL (test code = 103 mmol/L 98-108 6015170436) CO2 TOTAL (test code = 29 mmol/L 23-31 1776486530) AGAP (test code = 2-16 8512658619) BUN (test code = 13 mg/dL 7-23 5403785603) GLUCOSE (test code = 135 mg/dL 70-110 H 7386108394) CREATININE (test code = 0.55 mg/dL 0.60-1.25 L 0658930209) CALCIUM (test code = 8.2 mg/dL 8.6-10.6 L 4359612162) eGFR (test code = mL/min/1.73m2 3331800259) CARLIE (test code = CARLIE) Association of Glomerular Filtration Rate (GFR) and Staging of Kidney Disease* + --+ --+ ------+| GFR (mL/min/1.73 m2) ?| With Kidney Damage ?| ?Without Kidney Damage+ --------+ --------+ +| ?>90 ?| ?Stage one ?| ? Normal ?+ ---+ ---+ -------+| ?60-89 ?| ?Stage two ?| ? Decreased GFR ? + --+ --+ ------+| ?30-59 ?| ?Stage three ?| ? Stage three ? + --+ --+ ------+| ?15-29 ?| ?Stage four ? | ? Stage four ?+ ---+ ---+ -------+| ?<15 (or dialysis) ? ?| ?Stage five ? | ? Stage five ?+ ---+ ---+ -------+ *Each stage assumes the associated GFR level has been in effect for at least three months. ?Stages 1 to 5, with or without kidney [...] tests). Lab Interpretation Abnormal (test code = 98397-7) [facility] Test Item Value Reference Range Interpretation Comments MAGNESIUM (test code = 5934763084) 2.2 mg/dL 1.7-2.4 Lab Interpretation (test code = Normal 73104-4) [facility] 15:12:56 Test Item Value Reference Range Interpretation Comments PHOSPHORUS (test code = 0709810379) 2.2 mg/dL 2.5-5.0 L Lab Interpretation (test code = Abnormal 14563-0) [facility] GLUCOSE (AUTOMATED)2021-01-27 14:39:58 Test Item Value Reference Range Interpretation Comments POCT GLU (test code = 140 mg/dL 70-110 H Notifi ed Provider [id number]) Lab Interpretation (test Abnormal code = 08778-9) [facility] GLUCOSE (AUTOMATED)2021-01-27 14:39:58 Test Item Value Reference Range Interpretation Comments POCT GLU (test code = 140 mg/dL 70-110 H Notifi ed Provider [id number]) Lab Interpretation (test Abnormal code = 85357-8) [facility]+K+GLU+CA2+2021-01-27 04:22:04 Test Item Value Reference Range Interpretation Comments PH (test code = 2) 7.35-7.45 PCO2 (test code = See_Comment L [Automat ed message] 6050421449) The system [employer] generated this result transmit thuy reference range : 35 - 45 mmHg. The reference range was not used to interpret this result as normal/abnormal . PO2 (test code = See_Comment H [Automated message] 8973630761) The system ic h generated this result transmit thuy reference range : 80 - 100 mmHg. The reference range was not used to interpret this result as normal/abnormal . HCO3 (test code = See_Comment L [Automate d message] 3247280582) The system ic h generated this result transmit thuy reference range : 22 - 26 mEq/L. The reference range was not used to interpret this result as normal/abnormal . BE (test code = See_Comment L [Automated message] 3212333469) The system ic h generated this result transmit thuy reference range : -3.0 - 3.0 mEq/ L. The reference r jaswinder was not used to interpret this result as normal/abnormal . THB (test code = 8.1 g/dL 13.5-18.0 LL 2599705720) %O2HB (test code = 99.5 % 94.0-99.0 H 4991683454) %COHB ART (test code = 0.0 % 0.0-1.5 2638575446) %METHB ART (test code = 0.1 % 0.4-1.5 L 8472213904) VOL%O2 ART (test code = 12.2 % 15.0-23.0 L 7811689832) NA (test code = 133 mmol/L 135-145 L 4852028648) K+ (test code = 4.4 mmol/L 3.5-5.0 3084379380) AC CA IONZ (test code = 5.10 mg/dL 4.50-5.30 9211961260) GLUCOSE (test code = 151 mg/dL 70-110 H 4134957197) Lab Interpretation Abnormal (test code = 15956-3) [facility]+K+GLU+CA2+2021-01-27 04:22:04 Test Item Value Reference Range Interpretation Comments PH (test code = 2) 7.40 7.35-7.45 PCO2 (test code = 30 See_Comment L [Automat ed message] 3366757493) The system [employer] generated this result transmit thuy reference range : 35 - 45 mmHg. The reference range was not used to interpret this result as normal/abnormal . PO2 (test code = 332 See_Comment H [Automated message] 5896291753) The system [employer] generated this result transmit thuy reference range : 80 - 100 mmHg. The reference range was not used to interpret this result as normal/abnormal . HCO3 (test code = 18 See_Comment L [Automate d message] 5008624263) The system [employer] generated this result transmit thuy reference range : 22 - 26 mEq/L. The reference range was not used to interpret this result as normal/abnormal . BE (test code = -5.8 See_Comment L [Automated message] 2044183329) The system [employer] generated this result transmit thuy reference range : -3.0 - 3.0 mEq/ L. The reference r jaswinder was not used to interpret this result as normal/abnormal . THB (test code = 8.1 g/dL 13.5-18.0 LL 5664476059) %O2HB (test code = 99.5 % 94.0-99.0 H 9396508036) %COHB ART (test code = 0.0 % 0.0-1.5 9791837311) %METHB ART (test code = 0.1 % 0.4-1.5 L 3082351475) VOL%O2 ART (test code = 12.2 % 15.0-23.0 L 9356311675) NA (test code = 133 mmol/L 135-145 L 3718768196) K+ (test code = 4.4 mmol/L 3.5-5.0 8123897356) AC CA IONZ (test code = 5.10 mg/dL 4.50-5.30 9524713591) GLUCOSE (test code = 151 mg/dL 70-110 H 0394669970) Lab Interpretation Abnormal (test code = 55820-5) [facility] GLUCOSE (AUTOMATED)2021-01-27 01:12:43 Test Item Value Reference Range Interpretation Comments POCT GLU (test code = 8731404893) 133 mg/dL 70-110 H Lab Interpretation (test code = Abnormal 49615-4) [facility] GLUCOSE (AUTOMATED)2021-01-27 01:12:43 Test Item Value Reference Range Interpretation Comments POCT GLU (test code = 0149626198) 133 mg/dL 70-110 H Lab Interpretation (test code = Abnormal 82278-9) [facility] 10:02:04 Test Item Value Reference Range Interpretation Comments MAGNESIUM (test code = 9330452382) 2.3 mg/dL 1.7-2.4 Lab Interpretation (test code = Normal 08033-2) [facility] 10:02:04 Test Item Value Reference Range Interpretation Comments PHOSPHORUS (test code = 6141876780) 1.3 mg/dL 2.5-5.0 L Lab Interpretation (test code = Abnormal 52696-8) [facility] 10:02:04 Test Item Value Reference Range Interpretation Comments MAGNESIUM (test code = 7110923536) 2.3 mg/dL 1.7-2.4 Lab Interpretation (test code = Normal 08042-5) [facility] 10:02:04 Test Item Value Reference Range Interpretation Comments PHOSPHORUS (test code = 9502555299) 1.3 mg/dL 2.5-5.0 L Lab Interpretation (test code = Abnormal 23072-8) [facility] (NA, K, CL, CO2, GLUCOSE, BUN, CREATININE, CA)2021-01-26 10:02:03 Test Item Value Reference Range Interpretation Comments NA (test code = 137 mmol/L 135-145 2692262273) K (test code = 3.8 mmol/L 3.5-5.0 1499760456) CL (test code = 102 mmol/L 98-108 1219806459) CO2 TOTAL (test code = 30 mmol/L 23-31 2444043086) AGAP (test code = 5 2-16 4199543581) BUN (test code = 16 mg/dL 7-23 0898224687) GLUCOSE (test code = 98 mg/dL 70-110 9021999712) CREATININE (test code = 0.51 mg/dL 0.60-1.25 L 2489987319) CALCIUM (test code = 7.9 mg/dL 8.6-10.6 L 8770769533) eGFR (test code = 155.6 mL/min/1.73m2 9311453002) CARLIE (test code = CARLIE) Association of [...] tests). Lab Interpretation Abnormal (test code = 45266-4) [facility] METABOLIC PANEL (NA, K, CL, CO2, GLUCOSE, BUN, CREATININE, CA)2021-01-26 10:02:03 Test Item Value Reference Range Interpretation Comments NA (test code = 137 mmol/L 135-145 1330401259) K (test code = 3.8 mmol/L 3.5-5.0 9165653312) CL (test code = 102 mmol/L 98-108 6796912613) CO2 TOTAL (test code = 30 mmol/L 23-31 3433961371) AGAP (test code = 2-16 0920650501) BUN (test code = 16 mg/dL 7-23 9316832577) GLUCOSE (test code = 98 mg/dL 70-110 7525910706) CREATININE (test code = 0.51 mg/dL 0.60-1.25 L 7806049916) CALCIUM (test code = 7.9 mg/dL 8.6-10.6 L 9508699166) eGFR (test code = mL/min/1.73m2 5221887808) CARLIE (test code = CARLIE) Association of Glomerular Filtration Rate (GFR) and Staging of Kidney Disease* + --+ --+ ------+| GFR (mL/min/1.73 m2) ?| With Kidney Damage ?| ?Without Kidney Damage+ --------+ --------+ +| ?>90 ?| ?Stage one ?| ? Normal ?+ ---+ ---+ -------+| ?60-89 ?| ?Stage two ?| ? Decreased GFR ? + --+ --+ ------+| ?30-59 ?| ?Stage three ?| ? Stage three ? + --+ --+ ------+| ?15-29 ?| ?Stage four ? | ? Stage four ?+ ---+ ---+ -------+| ?<15 (or dialysis) ? ?| ?Stage five ? | ? Stage five ?+ ---+ ---+ -------+ *Each stage assumes the associated GFR level has been in effect for at least three months. ?Stages 1 to 5, with or without kidney [...] tests). Lab Interpretation Abnormal (test code = 04860-8) [facility] WITH [id number] 09:33:39 Test Item Value Reference Range Interpretation [...] (test code = 53.0 fL 38.5-51.6 H 96086-3) RDW-CV (test code = 15.0 % 12.1-15.4 788-0) PLT (test code = 196 See_Comment [Automated 777-3) message] The sy stem which generated this result transmitted reference range : 150 - 328 10*3/ ?L. The reference r jaswinder was not used to interpret this result as normal/abnormal . MPV (test code = 10.1 fL 9.8-13.0 41489-7) NRBC/100 WBC (test 0.0 See_Comment [Automat ed code = 8881028909) message] The system which generated this result transmitted reference range : 0.0 - 10.0 /100 WBCs. The refer ence range was not u sed to interpret th is result as normal/abnormal . NRBC x10^3 (test code <0.01 See_Comment [Auto mated = 5956715864) message] The s ystem which generated this result transmitted reference range : 10*3/?L. The reference range was not used to interpret this result as normal/abnormal . GRAN MAT (NEUT) % 70.2 % (test code = 770-8) IMM GRAN % (test code 0.60 % = 6299705638) LYMPH % (test code = 17.7 % 736-9) MONO % (test code = 9.6 % 5905-5) EOS % (test code = 1.4 % 713-8) BASO % (test code = 0.5 % 706-2) GRAN MAT x10^3(ANC) 4.39 10*3/uL 1.99-6.95 (test code = 3906115633) IMM GRAN x10^3 (test 0.04 10*3/uL 0.00-0.06 code = 1941037223) LYMPH x10^3 (test code 1.11 10*3/uL 1.09-3.23 = 731-0) MONO x10^3 (test code 0.60 10*3/uL 0.36-1.02 = 742-7) EOS x10^3 (test code = 0.09 10*3/uL 0.06-0.53 711-2) BASO x10^3 (test code 0.03 10*3/uL 0.01-0.09 = 704-7) Lab Interpretation Abnormal (test code = 97644-7) [facility] WITH [id number] 09:33:39 Test Item Value Reference Range Interpretation Comments WBC (test code = See_Comment [Automated 6490-2) message] The sy stem which generated this result transmitted reference range : 4.20 - 10.70 10*3/?L. The reference range was not used to interpret this result as normal/abnormal . RBC (test code = See_Comment L [Automated 019-8) message] The sy stem which generated this [...] (test code = 53.0 fL 38.5-51.6 H 32344-3) RDW-CV (test code = 15.0 % 12.1-15.4 788-0) PLT (test code = See_Comment [Automated 777-3) message] The sy stem which generated this result transmitted reference range : 150 - 328 10*3/ ?L. The reference r jaswinder was not used to interpret this result as normal/abnormal . MPV (test code = 10.1 fL 9.8-13.0 75874-8) NRBC/100 WBC (test See_Comment [Automat ed code = 0528061087) message] The system which generated this result transmitted reference range : 0.0 - 10.0 /100 WBCs. The refer ence range was not u sed to interpret th is result as normal/abnormal . NRBC x10^3 (test code <0.01 See_Comment [Auto mated = 4238529263) message] The s ystem which generated this result transmitted reference range : 10*3/?L. The reference range was not used to interpret this result as normal/abnormal . GRAN MAT (NEUT) % 70.2 % (test code = 770-8) IMM GRAN % (test code 0.60 % = 8311439894) LYMPH % (test code = 17.7 % 736-9) MONO % (test code = 9.6 % 5905-5) EOS % (test code = 1.4 % 713-8) BASO % (test code = 0.5 % 706-2) GRAN MAT x10^3(ANC) 4.39 10*3/uL 1.99-6.95 (test code = 2366776601) IMM GRAN x10^3 (test 0.04 10*3/uL 0.00-0.06 code = 5888342411) LYMPH x10^3 (test code 1.11 10*3/uL 1.09-3.23 = 731-0) MONO x10^3 (test code 0.60 10*3/uL 0.36-1.02 = 742-7) EOS x10^3 (test code = 0.09 10*3/uL 0.06-0.53 711-2) BASO x10^3 (test code 0.03 10*3/uL 0.01-0.09 = 704-7) Lab Interpretation Abnormal (test code = 34897-7) [facility] METABOLIC PANEL (NA, K, CL, CO2, GLUCOSE, BUN, CREATININE, CA)2021-01-26 06:12:45 Test Item Value Reference Range Interpretation Comments NA (test code = 137 mmol/L 135-145 9943300620) K (test code = 4.1 mmol/L 3.5-5.0 4164712144) CL (test code = 102 mmol/L 98-108 8195333891) CO2 TOTAL (test code = 31 mmol/L 23-31 1799354463) AGAP (test code = 4 2-16 8602483287) BUN (test code = 17 mg/dL 7-23 8797442829) GLUCOSE (test code = 140 mg/dL 70-110 H 8667531024) CREATININE (test code = 0.61 mg/dL 0.60-1.25 6305690160) CALCIUM (test code = 8.3 mg/dL 8.6-10.6 L 5746862819) eGFR (test code = 126.6 mL/min/1.73m2 8155229227) CARLIE (test code = CARLIE) Association of [...] tests). Lab Interpretation Abnormal (test code = 56459-8) [facility] METABOLIC PANEL (NA, K, CL, CO2, GLUCOSE, BUN, CREATININE, CA)2021-01-26 06:12:45 Test Item Value Reference Range Interpretation Comments NA (test code = 137 mmol/L 135-145 6455548119) K (test code = 4.1 mmol/L 3.5-5.0 2457187726) CL (test code = 102 mmol/L 98-108 5883884549) CO2 TOTAL (test code = 31 mmol/L 23-31 0444207974) AGAP (test code = 2-16 2566150676) BUN (test code = 17 mg/dL 7-23 1786822823) GLUCOSE (test code = 140 mg/dL 70-110 H 6699082583) CREATININE (test code = 0.61 mg/dL 0.60-1.25 7787095810) CALCIUM (test code = 8.3 mg/dL 8.6-10.6 L 3356974679) eGFR (test code = mL/min/1.73m2 7067962577) CARLIE (test code = CARLIE) Association of Glomerular Filtration Rate (GFR) and Staging of Kidney Disease* + --+ --+ ------+| GFR (mL/min/1.73 m2) ?| With Kidney Damage ?| ?Without Kidney Damage+ --------+ --------+ +| ?>90 ?| ?Stage one ?| ? Normal ?+ ---+ ---+ -------+| ?60-89 ?| ?Stage two ?| ? Decreased GFR ? + --+ --+ ------+| ?30-59 ?| ?Stage three ?| ? Stage three ? + --+ --+ ------+| ?15-29 ?| ?Stage four ? | ? Stage four ?+ ---+ ---+ -------+| ?<15 (or dialysis) ? ?| ?Stage five ? | ? Stage five ?+ ---+ ---+ -------+ *Each stage assumes the associated GFR level has been in effect for at least three months. ?Stages 1 to 5, with or without kidney [...] tests). Lab Interpretation Abnormal (test code = 85977-2) [facility] WITH [id number] 05:39:20 Test Item Value Reference Range Interpretation Comments WBC (test code = 6.64 See_Comment [Automated 6690-2) message] The sy stem which generated this result transmitted reference range : 4.20 - 10.70 10*3/?L. The reference range was not used to interpret this result as normal/abnormal . RBC (test code = 2.85 See_Comment L [Automated 999-8) message] The sy stem which generated this [...] (test code = 52.5 fL 38.5-51.6 H 45347-5) RDW-CV (test code = 15.1 % 12.1-15.4 788-0) PLT (test code = 223 See_Comment [Automated 777-3) message] The sy stem which generated this result transmitted reference range : 150 - 328 10*3/ ?L. The reference r jaswinder was not used to interpret this result as normal/abnormal . MPV (test code = 9.8 fL 9.8-13.0 66319-0) NRBC/100 WBC (test 0.0 See_Comment [Automat ed code = 4371297495) message] The system which generated this result transmitted reference range : 0.0 - 10.0 /100 WBCs. The refer ence range was not u sed to interpret th is result as normal/abnormal . NRBC x10^3 (test code <0.01 See_Comment [Auto mated = 8931329518) message] The s ystem which generated this result transmitted reference range : 10*3/?L. The reference range was not used to interpret this result as normal/abnormal . GRAN MAT (NEUT) % 74.6 % (test code = 770-8) IMM GRAN % (test code 0.60 % = 8265101879) LYMPH % (test code = 15.2 % 736-9) MONO % (test code = 8.3 % 5905-5) EOS % (test code = 0.8 % 713-8) BASO % (test code = 0.5 % 706-2) GRAN MAT x10^3(ANC) 4.96 10*3/uL 1.99-6.95 (test code = 3716932862) IMM GRAN x10^3 (test 0.04 10*3/uL 0.00-0.06 code = 7886621472) LYMPH x10^3 (test code 1.01 10*3/uL 1.09-3.23 L = 731-0) MONO x10^3 (test code 0.55 10*3/uL 0.36-1.02 = 742-7) EOS x10^3 (test code = 0.05 10*3/uL 0.06-0.53 L 711-2) BASO x10^3 (test code 0.03 10*3/uL 0.01-0.09 = 704-7) Lab Interpretation Abnormal (test code = 66916-8) [facility] WITH [id number] 05:39:20 Test Item Value Reference Range Interpretation Comments WBC (test code = See_Comment [Automated 6690-2) message] The sy stem which generated this result transmitted reference range : 4.20 - 10.70 10*3/?L. The reference range was not used to interpret this result as normal/abnormal . RBC (test code = See_Comment L [Automated 789-8) message] The sy [...] (test code = 52.5 fL 38.5-51.6 H 06807-2) RDW-CV (test code = 15.1 % 12.1-15.4 788-0) PLT (test code = See_Comment [Automated 777-3) message] The sy stem which generated this result transmitted reference range : 150 - 328 10*3/ ?L. The reference r jaswinder was not used to interpret this result as normal/abnormal . MPV (test code = 9.8 fL 9.8-13.0 31228-0) NRBC/100 WBC (test See_Comment [Automat ed code = [id number]) message] The system which generated this result transmitted reference range : 0.0 - 10.0 /100 WBCs. The refer ence range was not u sed to interpret th is result as normal/abnormal . NRBC x10^3 (test code <0.01 See_Comment [Auto mated = [id number]) message] The s ystem which generated this result transmitted reference range : 10*3/?L. The reference range was not used to interpret this result as normal/abnormal . GRAN MAT (NEUT) % 74.6 % (test code = 770-8) IMM GRAN % (test code 0.60 % = [id number]) LYMPH % (test code = 15.2 % 736-9) MONO % (test code = 8.3 % 5905-5) EOS % (test code = 0.8 % 713-8) BASO % (test code = 0.5 % 706-2) GRAN MAT x10^3(ANC) 4.96 10*3/uL 1.99-6.95 (test code = [id number]) IMM GRAN x10^3 (test 0.04 10*3/uL 0.00-0.06 code = 4174369316) LYMPH x10^3 (test code 1.01 10*3/uL 1.09-3.23 L = 731-0) MONO x10^3 (test code 0.55 10*3/uL 0.36-1.02 = 742-7) EOS x10^3 (test code = 0.05 10*3/uL 0.06-0.53 L 711-2) BASO x10^3 (test code 0.03 10*3/uL 0.01-0.09 = 704-7) Lab Interpretation Abnormal (test code = 80166-3) [facility] GLUCOSE (AUTOMATED)2021-01-26 01:14:28 Test Item Value Reference Range Interpretation Comments POCT GLU (test code = 1813543046) 131 mg/dL 70-110 H Lab Interpretation (test code = Abnormal 41623-4) [facility] GLUCOSE (AUTOMATED)2021-01-26 01:14:28 Test Item Value Reference Range Interpretation Comments POCT GLU (test code = 6616947251) 131 mg/dL 70-110 H Lab Interpretation (test code = Abnormal 93661-5) [facility] GLUCOSE (AUTOMATED)2021-01-25 21:53:13 Test Item Value Reference Range Interpretation Comments POCT GLU (test code = 7661189185) 141 mg/dL 70-110 H Lab Interpretation (test code = Abnormal 92637-3) [facility] GLUCOSE (AUTOMATED)2021-01-25 21:53:13 Test Item Value Reference Range Interpretation Comments POCT GLU (test code = 8872830331) 141 mg/dL 70-110 H Lab Interpretation (test code = Abnormal 42780-1) [facility] GLUCOSE (AUTOMATED)2021-01-25 14:01:24 Test Item Value Reference Range Interpretation Comments POCT GLU (test code = 3757284039) 104 mg/dL 70-110 Lab Interpretation (test code = Normal 97580-7) [facility] GLUCOSE (AUTOMATED)2021-01-25 14:01:24 Test Item Value Reference Range Interpretation Comments POCT GLU (test code = 7154857590) 104 mg/dL 70-110 Lab Interpretation (test code = Normal 18638-2) [facility] [id number] 13:48:12EXAM: XR CHEST 1 VW HISTORY: chest tube COMPARISON: None. FINDINGS: The chest tubes draining the pleural space on both sides are unchanged inposition. Similarly unchanged is the vascular access catheter introduced onthe right, the tip of which is at the atriocaval junction. The heart andgreat vesselsare normal, and the lungs are well expanded and clear. Thevascular congestion and basilar edema noted previously have resolved. ? [facility], Radiant Results Inft User - 01/25/2021 8:49 AM CDTEXAM: XR CHEST 1 VWHISTORY: chest tube COMPARISON: None.FINDINGS:The chest tubes draining the pleural space onboth sides are unchanged inposition. Similarly unchanged is the vascular access catheter introduced onthe right, the tip of which is at the atriocaval junction. The heart andgreat vessels are normal, and the lungs are well expanded and clear. Thevascular congestion and basilar edema noted previously have resolved.[facility] XR CHEST 1 [id number] 13:48:12[facility], Radiant Results Inft User - 01/25/2021 [...] congestion and basilar edema noted previously have resolved.[facility] Chest 2 Views - Upright ( PA, LAT) on POD # 13:47:02 Interval removal of right central venous catheter. Small left pleural effusion. Preliminary Report Dictated by Resident: Adam Armstrong MD., have reviewed this study and agree withthe above report.EXAM: XR CHEST 2 VW COMPARISON: 01/23/2021 HISTORY: s/p open heart surgery FINDINGS: Devices: Interval removal of right subclavian venous catheter. Bilateralchest tubes are unchanged. Lungs: The lungs are clear. Small left pleural effusion is noted. Nopneumothorax is identified. Heart/Mediastinum: The cardiomediastinal silhouette is normal in size.Surgical clips are seen. Bones: No acute osseous abnormality is seen. Median sternotomy wires arepresent. [facility], Radiant Results Inft User- 01/25/2021 8:48 AM CDTEXAM: XR CHEST 2 VWCOMPARISON: 01/23/2021HISTORY: s/p open heart surgery FINDINGS:Devices: Interval removal of right subclavian venous catheter. Bilateralchest tubes are unchanged.Lungs: The lungs are clear. Small left pleural effusion is noted. Nopneumothorax is identified.Heart/Mediastinum: The cardiomediastinal silhouette is normal in size.Surgical clips are seen.Bones: No acute osseous abnormality is seen. Median sternotomy wires arepresent.IMPRESSIONInterval removal of right central venous catheter.Small left pleural effusion.Preliminary Report Dictated by Resident: Adam Rucker MD., have reviewed this study and agree withthe above report.[facility] ( [facility], LAT) on POD # 13:47:02 Interval removal of right central venous catheter. Small left pleural effusion. Preliminary Report Dictated by Resident: Adam Armstrong MD., have reviewed this study and agree wit hthe above report.[facility], Radiant Results Inft User - 01/25/2021 8:48 [...] reviewed this study and agree withthe above report. [facility] (NA, K, CL, CO2, GLUCOSE, BUN, CREATININE, CA)2021-01-25 09:00:49 Test Item Value Reference Range Interpretation Comments NA (test code = 138 mmol/L 135-145 4460237916) K (test code = 4.1 mmol/L 3.5-5.0 3113254374) CL (test code = 105 mmol/L 98-108 1987846277) CO2 TOTAL (test code = 31 mmol/L 23-31 9482978653) AGAP (test code = 2 2-16 8294792996) BUN (test code = 17 mg/dL 7-23 5454509979) GLUCOSE (test code = 92 mg/dL 70-110 0924738307) CREATININE (test code = 0.47 mg/dL 0.60-1.25 L 5534206779) CALCIUM (test code = 8.0 mg/dL 8.6-10.6 L 7586004677) eGFR (test code = 171.0 mL/min/1.73m2 4814416182) CARLIE (test code = CARLIE) Association of [...] tests). Lab Interpretation Abnormal (test code = 54966-6) [facility] 09:00:49 Test Item Value Reference Range Interpretation Comments MAGNESIUM (test code = 1504521901) 2.2 mg/dL 1.7-2.4 Lab Interpretation (test code = Normal 80238-4) [facility] METABOLIC PANEL (NA, K, CL, CO2, GLUCOSE, BUN, CREATININE, CA)2021-01-25 09:00:49 Test Item Value Reference Range Interpretation Comments NA (test code = 138 mmol/L 135-145 5304357462) K (test code = 4.1 mmol/L 3.5-5.0 5175083160) CL (test code = 105 mmol/L 98-108 7899926958) CO2 TOTAL (test code = 31 mmol/L 23-31 7239442334) AGAP (test code = 2-16 9810839135) BUN (test code = 17 mg/dL 7-23 9264885468) GLUCOSE (test code = 92 mg/dL 70-110 2790908489) CREATININE (test code = 0.47 mg/dL 0.60-1.25 L 0952597461) CALCIUM (test code = 8.0 mg/dL 8.6-10.6 L 4115040215) eGFR (test code = mL/min/1.73m2 9634076790) CARLIE (test code = CARLIE) Association of Glomerular Filtration Rate (GFR) and Staging of Kidney Disease* + --+ --+ ------+| GFR (mL/min/1.73 m2) ?| With Kidney Damage ?| ?Without Kidney Damage+ --------+ --------+ +| ?>90 ?| ?Stage one ?| ? Normal ?+ ---+ ---+ -------+| ?60-89 ?| ?Stage two ?| ? Decreased GFR ? + --+ --+ ------+| ?30-59 ?| ?Stage three ?| ? Stage three ? + --+ --+ ------+| ?15-29 ?| ?Stage four ? | ? Stage four ?+ ---+ ---+ -------+| ?<15 (or dialysis) ? ?| ?Stage five ? | ? Stage five ?+ ---+ ---+ -------+ *Each stage assumes the associated GFR level has been in effect for at least three months. ?Stages 1 to 5, with or without kidney [...] tests). Lab Interpretation Abnormal (test code = 62815-9) [facility]2021-05-03 09:00:49 Test Item Value Reference Range Interpretation Comments MAGNESIUM (test code = 3897106310) 2.2 mg/dL 1.7-2.4 Lab Interpretation (test code = Normal 96520-0) [facility] GLUCOSE (AUTOMATED)2021-01-24 17:43:33 Test Item Value Reference Range Interpretation Comments POCT GLU (test code = 119 mg/dL 70-110 H Notifi ed Provider [id number]) Lab Interpretation (test Abnormal code = 08353-6) [facility] GLUCOSE (AUTOMATED)2021-01-24 17:43:33 Test Item Value Reference Range Interpretation Comments POCT GLU (test code = 119 mg/dL 70-110 H Notifi ed Provider [id number]) Lab Interpretation (test Abnormal code = 30601-4) [facility]2021-05-02 17:00:33 Test Item Value Reference Range Interpretation Comments DIGOXIN (test code = 2.2 ng/mL 0.8-1.6 H 5746023259) CARLIE (test code = CARLIE) Arrythmias: 1.5 - 2.0 ng/mLToxic Range: Greater than or equal to 2.4 ng/mL Lab Interpretation (test Abnormal code = 73015-5) [facility]2021-05-02 17:00:33 Test Item Value Reference Range Interpretation Comments DIGOXIN (test code = 2.2 ng/mL 0.8-1.6 H 2715256640) CARLIE (test code = CARLIE) Arrythmias: ?1.5 - 2.0 ng/mLToxic Range: ? Greater than or equal to 2.4 ng/mL Lab Interpretation (test Abnormal code = 44645-3) [facility] GLUCOSE (AUTOMATED)2021-01-24 13:53:55 Test Item Value Reference Range Interpretation Comments POCT GLU (test code = 94 mg/dL 70-110 Notifi ed Provider [id number]) Lab Interpretation (test Normal code = 52828-7) [facility] GLUCOSE (AUTOMATED)2021-01-24 13:53:55 Test Item Value Reference Range Interpretation Comments POCT GLU (test code = 94 mg/dL 70-110 Notifi ed Provider [id number]) Lab Interpretation (test Normal code = 56984-3) [facility] Metabolic Panel (NA, K, CL, CO2, GLUCOSE, BUN, CREATININE, CA) on POD # 10:55:15 Test Item Value Reference Range Interpretation Comments NA (test code = 139 mmol/L 135-145 3905854249) K (test code = 4.3 mmol/L 3.5-5.0 2442942917) CL (test code = 104 mmol/L 98-108 6247181625) CO2 TOTAL (test code = 32 mmol/L 23-31 H 8217745819) AGAP (test code = 3 2-16 5606423114) BUN (test code = 15 mg/dL 7-23 3185852915) GLUCOSE (test code = 96 mg/dL 70-110 8517195991) CREATININE (test code = 0.59 mg/dL 0.60-1.25 L 4491633761) CALCIUM (test code = 8.2 mg/dL 8.6-10.6 L 1429983800) eGFR (test code = 131.5 mL/min/1.73m2 8887286266) CARLIE (test code = CARLIE) Association of [...] tests). Lab Interpretation Abnormal (test code = 65305-4) [facility] Metabolic Panel (NA, K, CL, CO2, GLUCOSE, BUN, CREATININE, CA) on POD # [id number] 10:55:15 Test Item Value Reference Range Interpretation Comments NA (test code = 139 mmol/L 135-145 6616552278) K (test code = 4.3 mmol/L 3.5-5.0 5855082192) CL (test code = 104 mmol/L 98-108 8353133992) CO2 TOTAL (test code = 32 mmol/L 23-31 H 3415033150) AGAP (test code = 2-16 8955262687) BUN (test code = 15 mg/dL 7-23 2667759178) GLUCOSE (test code = 96 mg/dL 70-110 9654159126) CREATININE (test code = 0.59 mg/dL 0.60-1.25 L 9714880993) CALCIUM (test code = 8.2 mg/dL 8.6-10.6 L 2991704264) eGFR (test code = mL/min/1.73m2 4137602612) CARLIE (test code = CARLIE) Association of Glomerular Filtration Rate (GFR) and Staging of Kidney Disease* + --+ --+ ------+| GFR (mL/min/1.73 m2) ?| With Kidney Damage ?| ?Without Kidney Damage+ --------+ --------+ +| ?>90 ?| ?Stage one ?| ? Normal ?+ ---+ ---+ -------+| ?60-89 ?| ?Stage two ?| ? Decreased GFR ? + --+ --+ ------+| ?30-59 ?| ?Stage three ?| ? Stage three ? + --+ --+ ------+| ?15-29 ?| ?Stage four ? | ? Stage four ?+ ---+ ---+ -------+| ?<15 (or dialysis) ? ?| ?Stage five ? | ? Stage five ?+ ---+ ---+ -------+ *Each stage assumes the associated GFR level has been in effect for at least three months. ?Stages 1 to 5, with or without kidney [...] tests). Lab Interpretation Abnormal (test code = 15267-8) [facility] with Differential on POD # [id number] 10:25:49 Test Item Value Reference Range Interpretation Comments WBC (test code = 6.96 See_Comment [Automated 8399-2) message] The sy stem which generated this result transmitted reference range : 4.20 - 10.70 10*3/?L. The reference range was not used to interpret this result as normal/abnormal . RBC (test code = 2.71 See_Comment L [Automated 939-8) message] The sy [...] (test code = 54.5 fL 38.5-51.6 H 91826-8) RDW-CV (test code = 15.4 % 12.1-15.4 788-0) PLT (test code = 180 See_Comment [Automated 777-3) message] The sy stem which generated this result transmitted reference range : 150 - 328 10*3/ ?L. The reference r jaswinder was not used to interpret this result as normal/abnormal . MPV (test code = 10.2 fL 9.8-13.0 28496-3) NRBC/100 WBC (test 0.0 See_Comment [Automat ed code = 6347475040) message] The system which generated this result transmitted reference range : 0.0 - 10.0 /100 WBCs. The refer ence range was not u sed to interpret th is result as normal/abnormal . NRBC x10^3 (test code <0.01 See_Comment [Auto mated = 5975787588) message] The s ystem which generated this result transmitted reference range : 10*3/?L. The reference range was not used to interpret this result as normal/abnormal . GRAN MAT (NEUT) % 77.5 % (test code = 770-8) IMM GRAN % (test code 0.30 % = 6884857697) LYMPH % (test code = 11.1 % 736-9) MONO % (test code = 9.8 % 5905-5) EOS % (test code = 0.9 % 713-8) BASO % (test code = 0.4 % 706-2) GRAN MAT x10^3(ANC) 5.40 10*3/uL 1.99-6.95 (test code = 3755250370) IMM GRAN x10^3 (test <0.03 0.00-0.06 code = 0834856800) LYMPH x10^3 (test code 0.77 10*3/uL 1.09-3.23 L = 731-0) MONO x10^3 (test code 0.68 10*3/uL 0.36-1.02 = 742-7) EOS x10^3 (test code = 0.06 10*3/uL 0.06-0.53 711-2) BASO x10^3 (test code 0.03 10*3/uL 0.01-0.09 = 704-7) Lab Interpretation Abnormal (test code = 22090-9) [facility] with Differential on POD # [id number] 10:25:49 Test Item Value Reference Range Interpretation Comments WBC (test code = See_Comment [Automated 6690-2) message] The sy stem which generated this result transmitted reference range : 4.20 - 10.70 10*3/?L. The reference range was not used to interpret this result as normal/abnormal . RBC (test code = See_Comment L [Automated 789-8) message] The sy [...] (test code = 54.5 fL 38.5-51.6 H 98620-8) RDW-CV (test code = 15.4 % 12.1-15.4 788-0) PLT (test code = See_Comment [Automated 777-3) message] The sy stem which generated this result transmitted reference range : 150 - 328 10*3/ ?L. The reference r jaswinder was not used to interpret this result as normal/abnormal . MPV (test code = 10.2 fL 9.8-13.0 99326-5) NRBC/100 WBC (test See_Comment [Automat ed code = 9410798831) message] The system which generated this result transmitted reference range : 0.0 - 10.0 /100 WBCs. The refer ence range was not u sed to interpret th is result as normal/abnormal . NRBC x10^3 (test code <0.01 See_Comment [Auto mated = 7888028590) message] The s [employer] which generated this result transmitted reference range : 10*3/?L. The reference range was not used to interpret this result as normal/abnormal . GRAN MAT (NEUT) % 77.5 % (test code = 770-8) IMM GRAN % (test code 0.30 % = 2451378817) LYMPH % (test code = 11.1 % 736-9) MONO % (test code = 9.8 % 5905-5) EOS % (test code = 0.9 % 713-8) BASO % (test code = 0.4 % 706-2) GRAN MAT x10^3(ANC) 5.40 10*3/uL 1.99-6.95 (test code = 3262848950) IMM GRAN x10^3 (test <0.03 0.00-0.06 code = 2808054628) LYMPH x10^3 (test code 0.77 10*3/uL 1.09-3.23 L = 731-0) MONO x10^3 (test code 0.68 10*3/uL 0.36-1.02 = 742-7) EOS x10^3 (test code = 0.06 10*3/uL 0.06-0.53 711-2) BASO x10^3 (test code 0.03 10*3/uL 0.01-0.09 = 704-7) Lab Interpretation Abnormal (test code = 22673-1) [facility] GLUCOSE (AUTOMATED)2021-01-24 01:56:29 Test Item Value Reference Range Interpretation Comments POCT GLU (test code = 8109432063) 122 mg/dL 70-110 H Lab Interpretation (test code = Abnormal 11486-8) [facility] GLUCOSE (AUTOMATED)2021-01-24 01:56:29 Test Item Value Reference Range Interpretation Comments POCT GLU (test code = 2562065553) 122 mg/dL 70-110 H Lab Interpretation (test code = Abnormal 64572-5) [facility] GLUCOSE (AUTOMATED)2021-01-23 23:34:50 Test Item Value Reference Range Interpretation Comments POCT GLU (test code = 114 mg/dL 70-110 H Notifi ed Provider [id number]) Lab Interpretation (test Abnormal code = 38795-2) [facility] GLUCOSE (AUTOMATED)2021-01-23 23:34:50 Test Item Value Reference Range Interpretation Comments POCT GLU (test code = 114 mg/dL 70-110 H Notifi ed Provider [id number]) Lab Interpretation (test Abnormal code = 58906-9) [facility] GLUCOSE (AUTOMATED)2021-01-23 18:43:15 Test Item Value Reference Range Interpretation Comments POCT GLU (test code = 107 mg/dL 70-110 Notifi ed Provider [id number]) Lab Interpretation (test Normal code = 61866-0) [facility] GLUCOSE (AUTOMATED)2021-01-23 18:43:15 Test Item Value Reference Range Interpretation Comments POCT GLU (test code = 107 mg/dL 70-110 Notifi ed Provider [id number]) Lab Interpretation (test Normal code = 54109-9) [facility] METABOLIC PANEL (NA, K, CL, CO2, GLUCOSE, BUN, CREATININE, CA)2021-01-23 11:27:35 Test Item Value Reference Range Interpretation Comments NA (test code = 135 mmol/L 135-145 1332629819) K (test code = 4.4 mmol/L 3.5-5.0 9555133721) CL (test code = 103 mmol/L 98-108 6367005522) CO2 TOTAL (test code = 29 mmol/L 23-31 3163353238) AGAP (test code = 3 2-16 3906413054) BUN (test code = 14 mg/dL 7-23 2209844185) GLUCOSE (test code = 95 mg/dL 70-110 1553650731) CREATININE (test code = 0.53 mg/dL 0.60-1.25 L 8025337333) CALCIUM (test code = 8.0 mg/dL 8.6-10.6 L 4305149847) eGFR (test code = 148.8 mL/min/1.73m2 7459210304) CARLIE (test code = CARLIE) Association of [...] tests). Lab Interpretation Abnormal (test code = 89329-0) [facility] 11:27:35 Test Item Value Reference Range Interpretation Comments MAGNESIUM (test code = 8764191724) 2.2 mg/dL 1.7-2.4 Lab Interpretation (test code = Normal 02580-9) [facility]21[facility] 11:27:35 Test Item Value Reference Range Interpretation Comments PHOSPHORUS (test code = 6179540600) 1.8 mg/dL 2.5-5.0 L Lab Interpretation (test code = Abnormal 67865-6) [facility] (NA, K, CL, CO2, GLUCOSE, BUN, CREATININE, CA)2021-01-23 11:27:35 Test Item Value Reference Range Interpretation Comments NA (test code = 135 mmol/L 135-145 3408330314) K (test code = 4.4 mmol/L 3.5-5.0 3581345587) CL (test code = 103 mmol/L 98-108 7168799311) CO2 TOTAL (test code = 29 mmol/L 23-31 3338473469) AGAP (test code = 2-16 4764047007) BUN (test code = 14 mg/dL 7-23 1770826581) GLUCOSE (test code = 95 mg/dL 70-110 8580057952) CREATININE (test code = 0.53 mg/dL 0.60-1.25 L 1399598135) CALCIUM (test code = 8.0 mg/dL 8.6-10.6 L 2308933505) eGFR (test code = mL/min/1.73m2 6207221090) CARLIE (test code = CARLIE) Association of Glomerular Filtration Rate (GFR) and Staging of Kidney Disease* + --+ --+ ------+| GFR (mL/min/1.73 m2) ?| With Kidney Damage ?| ?Without Kidney Damage+ --------+ --------+ +| ?>90 ?| ?Stage one ?| ? Normal ?+ ---+ ---+ -------+| ?60-89 ?| ?Stage two ?| ? Decreased GFR ? + --+ --+ ------+| ?30-59 ?| ?Stage three ?| ? Stage three ? + --+ --+ ------+| ?15-29 ?| ?Stage four ? | ? Stage four ?+ ---+ ---+ -------+| ?<15 (or dialysis) ? ?| ?Stage five ? | ? Stage five ?+ ---+ ---+ -------+ *Each stage assumes the associated GFR level has been in effect for at least three months. ?Stages 1 to 5, with or without kidney [...] tests). Lab Interpretation Abnormal (test code = 68041-4) [facility] 11:27:35 Test Item Value Reference Range Interpretation Comments MAGNESIUM (test code = 6099827977) 2.2 mg/dL 1.7-2.4 Lab Interpretation (test code = Normal 26626-3) [facility] 11:27:35 Test Item Value Reference Range Interpretation Comments PHOSPHORUS (test code = 0167647308) 1.8 mg/dL 2.5-5.0 L Lab Interpretation (test code = Abnormal 53612-1) [facility] WITHOUT [id number] 10:54:12 Test Item Value Reference Range Interpretation Comments WBC (test code = 6690-2) 6.16 See_Comment [A utomated message] The system [employer] generated this result transmit thuy reference range : 4.20 - 10.70 10*3/?L. The reference range was not used to interpret this result as normal/abnormal . RBC (test code = 789-8) 2.68 See_Comment L [Au tomated message] The system [employer] generated this result transmit thuy reference range [...] See_Comment L [Au tomated message] The system [facility] generated this result transmit thuy reference range : 150 - 328 10*3/?L. The reference range was not used to interpret this result as normal/abnormal . MPV (test code = 10.7 fL 9.8-13.0 59539-1) RDW-CV (test code = 15.9 % 12.1-15.4 H 788-0) RDW-SD (test code = 55.1 fL 38.5-51.6 H 59555-8) NRBC x10^3 (test code = <0.01 See_Comment [Au tomated message] 1301821809) The system [employer] generated this result transmit thuy reference range : 10*3/?L. The reference range was not used to interpret this result as normal/abnormal . NRBC/100 WBC (test code 0.0 See_Comment [Au tomated message] = 4571798991) The system [facility] generated this result transmit thuy reference range : 0.0 - 10.0 /100 WBC s. The reference r jaswinder was not used to interpret this result as normal/abnormal . IPF % (test code = 7431705789) Lab Interpretation (test Abnormal code = 52971-8) [facility] WITHOUT [id number] 10:54:12 Test Item Value Reference Range Interpretation Comments WBC (test code = 6690-2) See_Comment [A utomated message] The system [employer] [facility] [facility] generated this result transmit thuy reference range : 4.20 - 10.70 10*3/?L. The reference range was not used to interpret this result as normal/abnormal . RBC (test code = 789-8) See_Comment L [Au tomated message] The system [employer] [facility] generated this result transmit thuy reference range [...] g/dL 31.2-35.0 PLT (test code = 777-3) See_Comment L [Au tomated message] The system [employer] [facility] generated this result transmit thuy reference range : 150 - 328 10*3/?L. The reference range was not used to interpret this result as normal/abnormal . MPV (test code = 10.7 fL 9.8-13.0 89227-3) RDW-CV (test code = 15.9 % 12.1-15.4 H 788-0) RDW-SD (test code = 55.1 fL 38.5-51.6 H 68582-4) NRBC x10^3 (test code = <0.01 See_Comment [Au tomated message] 6654389966) The system [employer] [facility] generated this result transmit thuy reference range : 10*3/?L. The reference range was not used to interpret this result as normal/abnormal . NRBC/100 WBC (test code See_Comment [Au tomated message] = 6460724485) The system [facility] generated this result transmit thuy reference range : 0.0 - 10.0 /100 WBC s. The reference r jaswinder was not used to interpret this result as normal/abnormal . IPF % (test code = 7297182386) Lab Interpretation (test Abnormal code = 22756-2) [facility] WITHOUT [id number] 02:02:35 Test Item Value Reference Range Interpretation Comments WBC (test code = 6690-2) 7.13 See_Comment [A utomated message] The system [employer] [facility] generated this result transmit thuy reference range : 4.20 - 10.70 10*3/?L. The reference range was not used to interpret this result as normal/abnormal . RBC (test code = 789-8) 2.80 See_Comment L [Au tomated message] The system [employer] [facility] generated this result transmit thuy reference range [...] 164 See_Comment [Au tomated message] The system [employer] [facility] generated this result transmit thuy reference range : 150 - 328 10*3/?L. The reference range was not used to interpret this result as normal/abnormal . MPV (test code = 9.9 fL 9.8-13.0 34564-6) RDW-CV (test code = 16.3 % 12.1-15.4 H 788-0) RDW-SD (test code = 55.2 fL 38.5-51.6 H 31273-8) NRBC x10^3 (test code = <0.01 See_Comment [Au tomated message] 1695624363) The system [employer] [facility] generated this result transmit thuy reference range : 10*3/?L. The reference range was not used to interpret this result as normal/abnormal . NRBC/100 WBC (test code 0.0 See_Comment [Au tomated message] = 8851588790) The system [employer] generated this result transmit thuy reference range : 0.0 - 10.0 /100 WBC s. The reference r jaswinder was not used to interpret this result as normal/abnormal . IPF % (test code = 6212931356) Lab Interpretation (test Abnormal code = 38602-8) [facility] WITHOUT BYCA0320-05-30 02:02:35 Test Item Value Reference Range Interpretation Comments WBC (test code = 6690-2) See_Comment [A utomated message] The system [employer] [facility] [employer] [employer] generated this result transmit thuy reference range : 4.20 - 10.70 10*3/?L. The reference range was not used to interpret this result as normal/abnormal . RBC (test code = 789-8) See_Comment L [Au tomated message] The system [employer] [facility] [facility] generated this result transmit thuy reference range [...] g/dL 31.2-35.0 PLT (test code = 777-3) See_Comment [Au tomated message] The system [employer] [facility] generated this result transmit thuy reference range : 150 - 328 10*3/?L. The reference range was not used to interpret this result as normal/abnormal . MPV (test code = 9.9 fL 9.8-13.0 57950-2) RDW-CV (test code = 16.3 % 12.1-15.4 H 788-0) RDW-SD (test code = 55.2 fL 38.5-51.6 H 99069-2) NRBC x10^3 (test code = <0.01 See_Comment [Au tomated message] [id number]) The system ncyclo h generated this result transmit thuy reference range : 10*3/?L. The reference range was not used to interpret this result as normal/abnormal . NRBC/100 WBC (test code See_Comment [Au tomated message] = 1211529144) The system [employer] ch generated this result transmit thuy reference range : 0.0 - 10.0 /100 WBC s. The reference r jaswinder was not used to interpret this result as normal/abnormal . IPF % (test code = 2785718796) Lab Interpretation (test Abnormal code = 65426-5) [facility] [id number] 22:27:44 Test Item Value Reference Range Interpretation Comments K (test code = 9978084034) 3.6 mmol/L 3.5-5.0 Lab Interpretation (test code = Normal 62720-2) [facility] [id number] 22:27:44 Test Item Value Reference Range Interpretation Comments K (test code = 2206594376) 3.6 mmol/L 3.5-5.0 Lab Interpretation (test code = Normal 04916-0) [facility] Packed RBC (in units), 1 Units 2021-01-22 17:04:53 Test Item Value Reference Range Interpretation Comments Cross Match Result Compatible (test code = 4409) ISBT Blood Type Code 6200 (test code = 508262) Unit Blood Type (test A Pos code = 4410) Unit Number (test [id number] code = 4411) Blood Expiration Date & Time (test code = 611805) Status Information Issued (test code = 4412) Product Red Blood Cells Identification (test code = 4413) Product Code (test V9017S52 Performed at [facility] code = 4414) Laboratory Services - [facility] Blood [address] [place] [id number] Free: [phone] A No. [id number] [facility] Packed RBC (in units), 1 Units 2021-01-22 17:04:53 Test Item Value Reference Range Interpretation Comments Cross Match Result Compatible (test code = 4409) ISBT Blood Type Code (test code = 544293) Unit Blood Type (test A Pos code = 4410) Unit Number (test [id number] code = 4411) Blood Expiration Date & Time (test code = 344655) Status Information Issued (test code = 4412) Product Red Blood Cells Identification (test code = 4413) Product Code (test S2713B78 Performed at [facility] code = 4414) Laboratory Services - [facility] Blood [address] [place] [id number] Free: [phone] A No. [id number] [facility] [id number] 13:45:17EXAM: XR CHEST 1 VW HISTORY: s/p CABG COMPARISON: None. FINDINGS: The heart and great vessels are normal except for a tortuous and prominentarteriosclerotic aorta. Chest tubes are unchanged on both sides and amediastinal drain is present in the midline. The [place]-Dena catheter wasremoved. The tip of the right IJ line is deep in the superior vena cava.Mild basilar pulmonary congestion is present in the lung bases and a smallpleural effusion blunts the left costophrenic angle. The lungs are clearotherwise. ? [facility], Radiant Results Inft User - 01/22/2021 8:46 AM CDTEXAM: XR CHEST 1 VWHISTORY: s/pCABG COMPARISON: None.FINDINGS:The heart and great vessels are normal except for a tortuous and promi nentarteriosclerotic aorta. Chest tubes are unchanged on both sides and amediastinal drain is present in the midline. The [place]-Dena catheter wasremoved. The tip of the right IJ line is deep in the superior vena cava.Mild basilar pulmonary congestion is present in the lung bases and a smallpleural effusion blunts the left costophrenic angle. The lungs are clearotherwise.[facility] 1 [id number] 13:45:17[facility], Radiant Results Inft User - 01/22/2021 8:46 AM CDTEXAM: XR CHEST 1 VWHISTORY: s/p CABG COMPARISON: None.FINDINGS:The heart and great vessels are normal except for a tortuous and prominentarteriosclerotic aorta. Chest tubes are unchanged on both sides and amediastinal drain is present in the midline. The [place]-Dena catheter wasremoved. The tip of the right IJ line is deep in the superior vena cava.Mild basilar pulmonary congestion is present in the lung bases and a smallpleural effusion blunts the left costophrenic angle. The lungs are clearotherwise.[facility] WITH [id number] 10:02:06 Test Item Value Reference Range Interpretation [...] (test code = 53.7 fL 38.5-51.6 H 19785-2) RDW-CV (test code = 15.5 % 12.1-15.4 H 788-0) PLT (test code = 155 See_Comment [Automated 777-3) message] The sy stem which generated this result transmitted reference range : 150 - 328 10*3/ ?L. The reference r jaswinder was not used to interpret this result as normal/abnormal . MPV (test code = 10.6 fL 9.8-13.0 57249-0) NRBC/100 WBC (test 0.0 See_Comment [Automat ed code = 0054491091) message] The system which generated this result transmitted reference range : 0.0 - 10.0 /100 WBCs. The refer ence range was not u sed to interpret th is result as normal/abnormal . NRBC x10^3 (test code <0.01 See_Comment [Auto mated = 1491005658) message] The s ystem which generated this result transmitted reference range : 10*3/?L. The reference range was not used to interpret this result as normal/abnormal . GRAN MAT (NEUT) % 77.0 % (test code = 770-8) IMM GRAN % (test code 0.30 % = 4272508310) LYMPH % (test code = 9.7 % 736-9) MONO % (test code = 12.9 % 5905-5) EOS % (test code = 0.0 % 713-8) BASO % (test code = 0.1 % 706-2) GRAN MAT x10^3(ANC) 5.62 10*3/uL 1.99-6.95 (test code = 1532033089) IMM GRAN x10^3 (test <0.03 0.00-0.06 code = 3006838094) LYMPH x10^3 (test code 0.71 10*3/uL 1.09-3.23 L = 731-0) MONO x10^3 (test code 0.94 10*3/uL 0.36-1.02 = 742-7) EOS x10^3 (test code = <0.03 0.06-0.53 L 711-2) BASO x10^3 (test code <0.03 0.01-0.09 = 704-7) Lab Interpretation Abnormal (test code = 62000-0) [facility] WITH [id number] 10:02:06 Test Item Value Reference Range Interpretation Comments WBC (test code = See_Comment [Automated 6690-2) message] The sy stem which generated this result transmitted reference range : 4.20 - 10.70 10*3/?L. The reference range was not used to interpret this result as normal/abnormal . RBC (test code = See_Comment L [Automated 789-8) message] The sy [...] (test code = 53.7 fL 38.5-51.6 H 46870-0) RDW-CV (test code = 15.5 % 12.1-15.4 H 788-0) PLT (test code = See_Comment [Automated 777-3) message] The sy stem which generated this result transmitted reference range : 150 - 328 10*3/ ?L. The reference r jaswinder was not used to interpret this result as normal/abnormal . MPV (test code = 10.6 fL 9.8-13.0 16050-0) NRBC/100 WBC (test See_Comment [Automat ed code = 0149710875) message] The system which generated this result transmitted reference range : 0.0 - 10.0 /100 WBCs. The refer ence range was not u sed to interpret th is result as normal/abnormal . NRBC x10^3 (test code <0.01 See_Comment [Auto mated = 1890175260) message] The s ystem which generated this result transmitted reference range : 10*3/?L. The reference range was not used to interpret this result as normal/abnormal . GRAN MAT (NEUT) % 77.0 % (test code = 770-8) IMM GRAN % (test code 0.30 % = 3123043521) LYMPH % (test code = 9.7 % 736-9) MONO % (test code = 12.9 % 5905-5) EOS % (test code = 0.0 % 713-8) BASO % (test code = 0.1 % 706-2) GRAN MAT x10^3(ANC) 5.62 10*3/uL 1.99-6.95 (test code = 2493123773) IMM GRAN x10^3 (test <0.03 0.00-0.06 code = 9336068190) LYMPH x10^3 (test code 0.71 10*3/uL 1.09-3.23 L = 731-0) MONO x10^3 (test code 0.94 10*3/uL 0.36-1.02 = 742-7) EOS x10^3 (test code = <0.03 0.06-0.53 L 711-2) BASO x10^3 (test code <0.03 0.01-0.09 = 704-7) Lab Interpretation Abnormal (test code = 59022-0) [facility]21[facility] 09:51:30 Test Item Value Reference Range Interpretation Comments MAGNESIUM (test code = 4075018331) 2.4 mg/dL 1.7-2.4 Lab Interpretation (test code = Normal 03720-4) [facility]2021-04-30 09:51:30 Test Item Value Reference Range Interpretation Comments PHOSPHORUS (test code = 7635857639) 1.9 mg/dL 2.5-5.0 L Lab Interpretation (test code = Abnormal 94698-3) [facility] Test Item Value Reference Range Interpretation Comments MAGNESIUM (test code = 8677468750) 2.4 mg/dL 1.7-2.4 Lab Interpretation (test code = Normal 64423-4) [facility]2021-04-30 09:51:30 Test Item Value Reference Range Interpretation Comments PHOSPHORUS (test code = 9324939398) 1.9 mg/dL 2.5-5.0 L Lab Interpretation (test code = Abnormal 95409-1) [facility] (NA, K, CL, CO2, GLUCOSE, BUN, CREATININE, CA)2021-01-22 09:51:29 Test Item Value Reference Range Interpretation Comments NA (test code = 135 mmol/L 135-145 5484725933) K (test code = 4.3 mmol/L 3.5-5.0 6692089986) CL (test code = 105 mmol/L 98-108 1039565630) CO2 TOTAL (test code = 28 mmol/L 23-31 5438937418) AGAP (test code = 2 2-16 4531898822) BUN (test code = 11 mg/dL 7-23 5124527171) GLUCOSE (test code = 105 mg/dL 70-110 7478474782) CREATININE (test code = 0.50 mg/dL 0.60-1.25 L 2480892543) CALCIUM (test code = 8.0 mg/dL 8.6-10.6 L 4423498532) eGFR (test code = 159.2 mL/min/1.73m2 9234540498) CARLIE (test code = CARLIE) Association of [...] tests). Lab Interpretation Abnormal (test code = 18898-3) [facility] METABOLIC PANEL (NA, K, CL, CO2, GLUCOSE, BUN, CREATININE, CA)2021-01-22 09:51:29 Test Item Value Reference Range Interpretation Comments NA (test code = 135 mmol/L 135-145 4851076731) K (test code = 4.3 mmol/L 3.5-5.0 9487135123) CL (test code = 105 mmol/L 98-108 9378353103) CO2 TOTAL (test code = 28 mmol/L 23-31 1477681877) AGAP (test code = 2-16 8268289995) BUN (test code = 11 mg/dL 7-23 9744013569) GLUCOSE (test code = 105 mg/dL 70-110 3774795008) CREATININE (test code = 0.50 mg/dL 0.60-1.25 L 4854482887) CALCIUM (test code = 8.0 mg/dL 8.6-10.6 L 3396124437) eGFR (test code = mL/min/1.73m2 3632698185) CARLIE (test code = CARLIE) Association of Glomerular Filtration Rate (GFR) and Staging of Kidney Disease* + --+ --+ ------+| GFR (mL/min/1.73 m2) ?| With Kidney Damage ?| ?Without Kidney Damage+ --------+ --------+ +| ?>90 ?| ?Stage one ?| ? Normal ?+ ---+ ---+ -------+| ?60-89 ?| ?Stage two ?| ? Decreased GFR ? + --+ --+ ------+| ?30-59 ?| ?Stage three ?| ? Stage three ? + --+ --+ ------+| ?15-29 ?| ?Stage four ? | ? Stage four ?+ ---+ ---+ -------+| ?<15 (or dialysis) ? ?| ?Stage five ? | ? Stage five ?+ ---+ ---+ -------+ *Each stage assumes the associated GFR level has been in effect for at least three months. ?Stages 1 to 5, with or without kidney [...] tests). Lab Interpretation Abnormal (test code = 24099-8) [facility] / MSSA Screen by Amelia [id number] 17:21:29 Test Item Value Reference Range Interpretation Comments MSSA Screen by Amelia GARCIA (test code Negative Negative = 68101-5) MRSA/MSSA Positive? (test code = No No 1996854858) Lab Interpretation (test code = Normal 19398-3) [facility] / MSSA Screen by PCR, [id number] 17:21:29 Test Item Value Reference Range Interpretation Comments MSSA Screen by PCR, Nares (test code Negative Negative = 42348-1) MRSA/MSSA Positive? (test code = No No 7112417506) Lab Interpretation (test code = Normal 45224-1) [facility] MSSA Screen by PCR, [id number] 17:21:29 Test Item Value Reference Range Interpretation Comments MSSA Screen by PCR, Nares (test code Negative Negative = 27385-9) MRSA/MSSA Positive? (test code = No No 2910604853) Lab Interpretation (test code = Normal 44410-9) [facility] 1 [id number] 16:22:12 The gastric tube is not visualized in the abdomen as it is turns superiorlyin the upper thoracic esophagus. Multiple additional lines and tubes as outlined above. Preliminary Report Dictated by Resident: Delmer Bhakta MD., have reviewed this study and agree with the abovereport.EXAM: XR ABDOMEN 1 VW HISTORY: OGT placement COMPARISON: none FINDINGS: The gastric tube is not visualized on the abdominal radiograph. Theconcurrent chest radiograph was reviewed for further evaluation of thegastric tube which is seen taking a 180 degree turn in the mid thoracicesophagus before extending superiorly beyond the izkvt-ow-jhfc. The [place]-Dena catheter tip projects over the main pulmonary ar joyce. Thecentral venous catheter tip projects over the superior cavoatrial junction.Bibasilar pleural drains identified with an additional drain projectingover the cardiac silhouette. The mediastinal drain extends superiorlybeyond the illjg-rs-uxss. The upper abdominal bowel gas pattern demonstrates anonobstructivepattern. No acute osseous abnormalities. Levocurvature of the lumbar spine.Multilevel spondylotic changes. [facility], Radiant Results Inft User - 01/21/2021 11:23 AM CDTEXAM: XR ABDOMEN 1 VWHISTORY: OGT placement COMPARISON: noneFINDINGS:The gastric tube is not visualized on the abdominal radiograph. Theconcurrent chest radiograph was reviewed for further evaluation of thegastric tube which is seen taking a 180 degree turn in the mid thoracicesophagus before extending superiorly beyond the njmmo-ho-mphe.The [place]- Dena catheter tip projects over the main pulmonary artery. Thecentral venous ca theter tip projects over the superior cavoatrial junction.Bibasilar pleural drains identified with an additional drain projectingover the cardiac silhouette. The mediastinal drain extends superiorlybeyond the isbpg-mj-manr.The upper abdominal bowel gas pattern demonstrates a nonobstructivepattern. No acute osseous abnormalities. Levocurvature of the lumbar spine.Multilevel spondylotic changes.IMPRESSIONThe gastric tube is not visualized in the abdomen as it is turns superiorlyin the upper thoracic esophagus.Multiple additional lines and tubes as outlined above.Preliminary Report Dictated by Resident: Delmer Villegas MD., have reviewed this study and agree with the abovereport.[facility] 1 [id number] 16:22:12 The gastric tube is not visualized in the abdomen as it is turns superiorlyin the upper thoracic esophagus. Multiple additional lines and tubes as outlined above. Preliminary Report Dictated by Resident: Delmer Bhakta MD., have reviewed this study and agree with the abovereport.EXA M: XR ABDOMEN 1 VW HISTORY: OGT placement COMPARISON: none FINDINGS: The gastric tube is not visualized on the abdominal radiograph. Theconcurrent chest radiograph was reviewed for further evaluation of thegastric tube which is seen taking a 180 degree turn in the mid thoracicesophagus before extending superiorly beyond the qzegf-ji-uefv. The [place]-Dena catheter tip projects over the main pulmonary artery. Thecentral venous catheter tip projects over the superior cavoatrial junction.Bibasilar pleural drains identified with an additional drain projectingover the cardiac silhouette. The mediastinal drain extends superiorlybeyond the zljht-dl-tdzy. The upper abdominal bowel gas pattern demonstrates anonobstructivepattern. No acute osseous abnormalities. Levocurvature of the lumbar spine.Multilevel spondylotic changes. [facility], Radiant Results Inft User - 01/21/2021 11:23 AM CDTEXAM: XR ABDOMEN 1 VWHISTORY: OGT placement COMPARISON: noneFINDINGS:The gastric tube is not visualized on the abdominal radiograph. Theconcurrent chest radiograph was reviewed for further evaluation of thegastric tube which is seen taking a 180 degree turn in the mid thoracicesophagus before extending superiorly beyond the nkgqu-gv-asfv.The [place]- Dena catheter tip projects over the main pulmonary artery. Thecentral venous ca theter tip projects over the superior cavoatrial junction.Bibasilar pleural drains identified with an additional drain projectingover the cardiac silhouette. The mediastinal drain extends superiorlybeyond the lbcmg-oc-lmpm.The upper abdominal bowel gas pattern demonstrates a nonobstructivepattern. No acute osseous abnormalities. Levocurvature of the lumbar spine.Multilevel spondylotic changes.IMPRESSIONThe gastric tube is not visualized in the abdomen as it is turns superiorlyin the upper thoracic esophagus.Multiple additional lines and tubes as outlined above.Preliminary Report Dictated by Resident: Delmer Villegas MD., have reviewed this study and agree with the abovereport.[facility] 1 [id number] 16:22:12 The gastric tube is not visualized in the abdomen as it is turns superiorlyin the upper thoracic esophagus. Multiple additional lines and tubes as outlined above. Preliminary Report Dictated by Resident: Delmer Bhakta MD., have reviewed this study and agree with the abovereport.[facility] gabriel, Radiant Results Inft User - 01/21/2021 11:23 AM CDTEXAM: XR ABDOMEN 1 VWHISTORY: OGT placement COMPARISON: noneFINDINGS:The gastric tube is not visualized on the abdominal radiograph. Theconcurrent chest radiograph was reviewed for further evaluation of thegastric tube which is seen taking a 180 degree turn in the mid thoracicesophagus before extending superiorly beyond the ezpte-ow-egme.The [place]-Dena catheter tip projects over the main pulmonary artery. Thecentral venous catheter tip projects over the superior cavoatrial junction.Bibasilar pleural drains identified with an additional drain proje ctingover the cardiac silhouette. The mediastinal drain extends superiorlybeyond the sdoub-pj-iomj.The upper abdominal bowel gas pattern demonstrates a nonobstructivepattern. No acute osseous abnormalities. Levocurvature of the lumbar spine.Multilevel spondylotic changes.IMPRESSIONThe gastric tube is not visualized in the abdomen as it is turns superiorlyin the upper thoracic esophagus.Multiple additional lines and tubes as outlined above.Preliminary Report Dictated by Resident: Delmer Villegas MD., have reviewed this study and agree with the abovereport.[facility] Chest 1 [id number] 13:32:40EXAM: XR CHEST 1 VW HISTORY: s/p open heart surgery COMPARISON: None. FINDINGS: The chest tubes on both sides, the mediastinal drain and the [place]-Ganzcatheter are unchanged in position. The endotracheal and nasogastric tubeswere removed. The tip of the right IJ line is deep in the superior venacava. The heart and great vessels are normal. The hilar vascular congestionis present on both sides but does not extend peripherally, suggesting thepossibility of pulmonary arterial hypertension. The lungs are well expandedand clear. ? [facility], Radiant Results Inft User - 01/21/2021 8:33 AM CDTEXAM: XR CHEST 1 VWHISTORY: s/p open heart surgery COMPARISON: None.FINDINGS:The chest tubes on both sides, the mediastinal drain and the [place]- Ganzcatheter are unchanged in position. The endotracheal and nasogastric tubeswere removed. The tip of the right IJ line is deep in the superior venacava. The heart and great vessels are normal. The hilar vascular congestionis present on both sides but does not extend peripherally, suggesting thepossibility of pulmonary arterial hypertension. The lungs are well expandedan d clear.[facility] 1 [id number] 13:32:40EXAM: XR CHEST 1 VW HISTORY: s/p open heart surgery COMPARISON: None. FINDINGS: The chest tubes on both sides, the mediastinal drain and the [place]-Ganzcatheter are unchanged in position. The endotracheal and nasogastric tubeswere removed. The tip of the right IJ line is deep in the superior venacava. The heart and great vessels are normal. The hilar vascular congestionis present on both sides but does not extend peripherally, suggesting thepossibility of pulmonary arterial hypertension. The lungs are well expandedand clear. ? [facility], Radiant Results Inft User - 01/21/2021 8:33 AM CDTEXAM: XR CHEST 1 VWHISTORY: s/p open heart surgery COMPARISON: None.FINDINGS:The chest tubes on both sides, the mediastinal drain and the [place]-Ganzcatheter are unchanged in position. The endotracheal and nasogastric tubeswere removed. The tip of the right IJ line is deep in the superior venacava. The heart and great vessels are normal. The hilar vascular congestionis present on both sides but does not extend peripherally, suggesting thepossibility of pulmonary arterial hypertension. The lungs are well expandedan d clear.[facility] 1 [id number] 13:32:40[facility], Radiant Results Inft User - 01/21/2021 8:33 AM CDTEXAM: XR CHEST 1 VWHISTORY: s/p open heart surgery COMPARISON: None.FINDINGS:The chest tubes on both sides, the mediastinal drain and the [place]-Ganzcatheter are unchanged in position. The endotracheal and nasogastric tubeswere removed. The tip ofthe right IJ line is deep in the superior venacava. The heart and great vessels are normal. The hilar vascular congestionis present on both sides but does not extend peripherally, suggesting thepossibility of pulmonary arterial hypertension. The lungs are well expandedand clear.[facility] 1 [id number] 13:16:03EXAM: XR CHEST 1 VW HISTORY: ETT placement Advanced ETT 1 cm, please confirm placement COMPARISON: None. FINDINGS: The tip of the endotracheal tube is at the level of the clavicles and thechest tubes on both sides and mediastinal drain are unchanged in position.The tip of the [place]-Dena catheter is in the outflow tract of the rightventricle or just enters the main pulmonary artery, and the tip of theright IJ line is in the superior vena cava. The heart and great vessels arenormal except for prominence of the thoracic aorta the lungs are wellexpanded and clear except for minor basilar subsegmental ate lectasis on theright. ? [facility], Radiant Results Inft User - 01/21/2021 8:17 AM CDTEXAM: XR CHEST1 VWHISTORY: ETT placement Advanced ETT 1 cm, please confirm placementCOMPARISON: None.FINDINGS:The tip of the endotracheal tube is at the level of the clavicles and thechest tubes on both sides and mediastinal drain are unchanged in position.The tip of the [place]-Dena catheter is in the outflow tract of the rightventricle or just enters the main pulmonary artery, and the tip of theright IJ line is in the superior vena cava. The heart and great vessels arenormal except for prominence of the thoracic aorta the lungs are wellexpanded and clear except for minor basilar subsegmental atelectasis on theright.[facility] 1 [id number] 13:16:03EXAM: XR CHEST 1 VW HISTORY: ETT placement Advanced ETT 1 cm, please confirm placement COMPARISON: None. FINDINGS: The tip of the endotracheal tube is at the level of the clavicles and thechest tubes on both sides and mediastinal drain are unchanged in position.The tip of the [place]-Dena catheter is in the outflow tract of the rightventricle or just enters the main pulmonary artery, and the tip of theright IJ line is in the superior vena cava. The heart and great vessels arenormal except for prominence of the thoracic aorta the lungs are wellexpanded and clear except for minor basilar subsegmental atelectasis on theright. ? [facility], Radiant Results Inft User - 01/21/2021 8:17 AM CDTEXAM: XR CHEST1 VWHISTORY: ETT placement Advanced ETT 1 cm, please confirm placementCOMPARISON: None.FINDINGS:The tip of the endotracheal tube is at the level of the clavicles and thechest tubes on both sides and mediastinal drain are unchanged in position.The tip of the [place]ena catheter is in the outflow tract of the rightventricle or just enters the main pulmonary artery, and the tip of theright IJ line is in the superior vena cava. The heart and great vessels arenormal except for prominence of the thoracic aorta the lungs are wellexpanded and clear except for minor basilar subsegmental atelectasis on theright.[facility] [id number] 13:16:03[facility], Radiant Results Inft User - 01/21/2021 8:17 AM CDTEXAM: XR CHEST 1 VWHISTORY: ETT placement Advanced ETT 1 cm, please confirm placementCOMPARISON: None.FINDINGS:The tip of the endotracheal tube is at the level of the clavicles and thechest tubes on both sides and mediastinal drain are unchangedin position.The tip of the [place]-Dena catheter is in the outflow tract of the rightventricle or just enters the main pulmonary artery, and the tip of theright IJ line is in the superior vena cava. The heart and great vessels arenormal except for prominence of the thoracic aorta the lungs are wellexpanded and clear except for minor basilar subsegmental atelectasis on theright.[facility]osph[facility]2021-04-29 11:09:28 Test Item Value Reference Range Interpretation Comments PHOSPHORUS (test code = 8770766245) 3.8 mg/dL 2.5-5.0 Lab Interpretation (test code = Normal 25558-6) [facility]2021-04-29 11:09:28 Test Item Value Reference Range Interpretation Comments PHOSPHORUS (test code = 9058269296) 3.8 mg/dL 2.5-5.0 Lab Interpretation (test code = Normal 71786-9) [facility]2021-04-29 11:09:28 Test Item Value Reference Range Interpretation Comments PHOSPHORUS (test code = 1107712539) 3.8 mg/dL 2.5-5.0 Lab Interpretation (test code = Normal 28027-0) [facility] Metabolic Panel (NA, K, CL, CO2, GLUCOSE, BUN, CREATININE, CA)2021-01-21 11:09:27 Test Item Value Reference Range Interpretation Comments NA (test code = 136 mmol/L 135-145 5463699962) K (test code = 4.3 mmol/L 3.5-5.0 1767659135) CL (test code = 106 mmol/L 98-108 9043112774) CO2 TOTAL (test code = 24 mmol/L 23-31 2114417577) AGAP (test code = 6 2-16 1102760602) BUN (test code = 8 mg/dL 7-23 3371280392) GLUCOSE (test code = 147 mg/dL 70-110 H 5957312898) CREATININE (test code = 0.49 mg/dL 0.60-1.25 L 1414226806) CALCIUM (test code = 7.6 mg/dL 8.6-10.6 L 8676774374) eGFR (test code = 162.9 mL/min/1.73m2 7672298457) CARLIE (test code = CARLIE) Association of [...] tests). Lab Interpretation Abnormal (test code = 95576-4) [facility]2021-04-29 11:09:27 Test Item Value Reference Range Interpretation Comments MAGNESIUM (test code = 2084068139) 1.9 mg/dL 1.7-2.4 Lab Interpretation (test code = Normal 65581-5) [facility] (NA, K, CL, CO2, GLUCOSE, BUN, CREATININE, CA)2021-01-21 11:09:27 Test Item Value Reference Range Interpretation Comments NA (test code = 136 mmol/L 135-145 5308529893) K (test code = 4.3 mmol/L 3.5-5.0 0211308615) CL (test code = 106 mmol/L 98-108 1910727369) CO2 TOTAL (test code = 24 mmol/L 23-31 4700995064) AGAP (test code = 2-16 8003906616) BUN (test code = 8 mg/dL 7-23 6406330956) GLUCOSE (test code = 147 mg/dL 70-110 H 0962508409) CREATININE (test code = 0.49 mg/dL 0.60-1.25 L 7490023615) CALCIUM (test code = 7.6 mg/dL 8.6-10.6 L 2483049530) eGFR (test code = mL/min/1.73m2 0043335470) CARLIE (test code = CARLIE) Association of Glomerular Filtration Rate (GFR) and Staging of Kidney Disease* + --+ --+ ------+| GFR (mL/min/1.73 m2) ?| With Kidney Damage ?| ?Without Kidney Damage+ --------+ --------+ +| ?>90 ?| ?Stage one ?| ? Normal ?+ ---+ ---+ -------+| ?60-89 ?| ?Stage two ?| ? Decreased GFR ? + --+ --+ ------+| ?30-59 ?| ?Stage three ?| ? Stage three ? + --+ --+ ------+| ?15-29 ?| ?Stage four ? | ? Stage four ?+ ---+ ---+ -------+| ?<15 (or dialysis) ? ?| ?Stage five ? | ? Stage five ?+ ---+ ---+ -------+ *Each stage assumes the associated GFR level has been in effect for at least three months. ?Stages 1 to 5, with or without kidney [...] tests). Lab Interpretation Abnormal (test code = 63397-9) [facility]2021-04-29 11:09:27 Test Item Value Reference Range Interpretation Comments MAGNESIUM (test code = 5448732257) 1.9 mg/dL 1.7-2.4 Lab Interpretation (test code = Normal 71149-1) [facility] (NA, K, CL, CO2, GLUCOSE, BUN, CREATININE, CA)2021-01-21 11:09:27 Test Item Value Reference Range Interpretation Comments NA (test code = 136 mmol/L 135-145 4453032810) K (test code = 4.3 mmol/L 3.5-5.0 6321320218) CL (test code = 106 mmol/L 98-108 4503783383) CO2 TOTAL (test code = 24 mmol/L 23-31 4510519585) AGAP (test code = 2-16 9187589089) BUN (test code = 8 mg/dL 7-23 3088005305) GLUCOSE (test code = 147 mg/dL 70-110 H 6383827909) CREATININE (test code = 0.49 mg/dL 0.60-1.25 L 0891105891) CALCIUM (test code = 7.6 mg/dL 8.6-10.6 L 0166521285) eGFR (test code = mL/min/1.73m2 8423474220) CARLIE (test code = CARLIE) Association of Glomerular Filtration Rate (GFR) and Staging of Kidney Disease* + --+ --+ ------+| GFR (mL/min/1.73 m2) ?| With Kidney Damage ?| ?Without Kidney Damage+ --------+ --------+ +| ?>90 ?| ?Stage one ?| ? Normal ?+ ---+ ---+ -------+| ?60-89 ?| ?Stage two ?| ? Decreased GFR ? + --+ --+ ------+| ?30-59 ?| ?Stage three ?| ? Stage three ? + --+ --+ ------+| ?15-29 ?| ?Stage four ? | ? Stage four ?+ ---+ ---+ -------+| ?<15 (or dialysis) ? ?| ?Stage five ? | ? Stage five ?+ ---+ ---+ -------+ *Each stage assumes the associated GFR level has been in effect for at least three months. ?Stages 1 to 5, with or without kidney [...] tests). Lab Interpretation Abnormal (test code = 85322-5) [facility] 11:09[facility]27 Test Item Value Reference Range Interpretation Comments MAGNESIUM (test code = 2221438303) 1.9 mg/dL 1.7-2.4 Lab Interpretation (test code = Normal 91204-7) [facility] with [id number] 11:02:38 Test Item Value Reference Range Interpretation Comments WBC (test code = 7.48 See_Comment [Automated 6690-2) message] The sy stem which generated this result transmitted reference range : 4.20 - 10.70 10*3/?L. The reference range was not used to interpret this result as normal/abnormal . RBC (test code = 2.48 See_Comment L [Automated 789-8) message] The sy [...] (test code = 53.3 fL 38.5-51.6 H 29428-0) RDW-CV (test code = 15.9 % 12.1-15.4 H 788-0) PLT (test code = 187 See_Comment [Automated 777-3) message] The sy stem which generated this result transmitted reference range : 150 - 328 10*3/ ?L. The reference r jaswinder was not used to interpret this result as normal/abnormal . MPV (test code = 9.8 fL 9.8-13.0 25427-0) NRBC/100 WBC (test 0.0 See_Comment [Automat ed code = 8805655068) message] The system which generated this result transmitted reference range : 0.0 - 10.0 /100 WBCs. The refer ence range was not u sed to interpret th is result as normal/abnormal . NRBC x10^3 (test code <0.01 See_Comment [Auto mated = 6271778726) message] The s ystem which generated this result transmitted reference range : 10*3/?L. The reference range was not used to interpret this result as normal/abnormal . GRAN MAT (NEUT) % 86.1 % (test code = 770-8) IMM GRAN % (test code 0.10 % = 7764525335) LYMPH % (test code = 4.4 % 736-9) MONO % (test code = 9.4 % 5905-5) EOS % (test code = 0.0 % 713-8) BASO % (test code = 0.0 % 706-2) GRAN MAT x10^3(ANC) 6.44 10*3/uL 1.99-6.95 (test code = 5979979828) IMM GRAN x10^3 (test <0.03 0.00-0.06 code = 2083602187) LYMPH x10^3 (test code 0.33 10*3/uL 1.09-3.23 L = 731-0) MONO x10^3 (test code 0.70 10*3/uL 0.36-1.02 = 742-7) EOS x10^3 (test code = <0.03 0.06-0.53 L 711-2) BASO x10^3 (test code <0.03 0.01-0.09 = 704-7) BASO STIPPLING (test Present A code = 703-9) BANDS (test code = Increased A 5331835106) Lab Interpretation Abnormal (test code = 68394-3) [facility] with [id number] 11:02:38 Test Item Value Reference Range Interpretation Comments WBC (test code = See_Comment [Automated 90-2) message] The sy stem which generated this result transmitted reference range : 4.20 - 10.70 10*3/?L. The reference range was not used to interpret this result as normal/abnormal . RBC (test code = See_Comment L [Automated 489-8) message] The sy stem which generated this [...] (test code = 53.3 fL 38.5-51.6 H 36630-0) RDW-CV (test code = 15.9 % 12.1-15.4 H 788-0) PLT (test code = See_Comment [Automated 777-3) message] The sy stem which generated this result transmitted reference range : 150 - 328 10*3/ ?L. The reference r jaswinder was not used to interpret this result as normal/abnormal . MPV (test code = 9.8 fL 9.8-13.0 11231-1) NRBC/100 WBC (test See_Comment [Automat ed code = 8650567534) message] The system which generated this result transmitted reference range : 0.0 - 10.0 /100 WBCs. The refer ence range was not u sed to interpret th is result as normal/abnormal . NRBC x10^3 (test code <0.01 See_Comment [Auto mated = 9522136004) message] The s ystem which generated this result transmitted reference range : 10*3/?L. The reference range was not used to interpret this result as normal/abnormal . GRAN MAT (NEUT) % 86.1 % (test code = 770-8) IMM GRAN % (test code 0.10 % = 8448312266) LYMPH % (test code = 4.4 % 736-9) MONO % (test code = 9.4 % 5905-5) EOS % (test code = 0.0 % 713-8) BASO % (test code = 0.0 % 706-2) GRAN MAT x10^3(ANC) 6.44 10*3/uL 1.99-6.95 (test code = 2692394591) IMM GRAN x10^3 (test <0.03 0.00-0.06 code = 4949532140) LYMPH x10^3 (test code 0.33 10*3/uL 1.09-3.23 L = 731-0) MONO x10^3 (test code 0.70 10*3/uL 0.36-1.02 = 742-7) EOS x10^3 (test code = <0.03 0.06-0.53 L 711-2) BASO x10^3 (test code <0.03 0.01-0.09 = 704-7) BASO STIPPLING (test Present A code = 703-9) BANDS (test code = Increased A 0695619994) Lab Interpretation Abnormal (test code = 30471-5) [facility] with [id number] 11:02:38 Test Item Value Reference Range Interpretation Comments WBC (test code = See_Comment [Automated 3290-2) message] The sy stem which generated this result transmitted reference range : 4.20 - 10.70 10*3/?L. The reference range was not used to interpret this result as normal/abnormal . RBC (test code = See_Comment L [Automated 789-8) message] The sy [...] (test code = 53.3 fL 38.5-51.6 H 56111-5) RDW-CV (test code = 15.9 % 12.1-15.4 H 788-0) PLT (test code = See_Comment [Automated 777-3) message] The sy stem which generated this result transmitted reference range : 150 - 328 10*3/ ?L. The reference r jaswinder was not used to interpret this result as normal/abnormal . MPV (test code = 9.8 fL 9.8-13.0 70915-1) NRBC/100 WBC (test See_Comment [Automat ed code = 6558544618) message] The system which generated this result transmitted reference range : 0.0 - 10.0 /100 WBCs. The refer ence range was not u sed to interpret th is result as normal/abnormal . NRBC x10^3 (test code <0.01 See_Comment [Auto mated = 2017325234) message] The s ystem which generated this result transmitted reference range : 10*3/?L. The reference range was not used to interpret this result as normal/abnormal . GRAN MAT (NEUT) % 86.1 % (test code = 770-8) IMM GRAN % (test code 0.10 % = 0385879384) LYMPH % (test code = 4.4 % 736-9) MONO % (test code = 9.4 % 5905-5) EOS % (test code = 0.0 % 713-8) BASO % (test code = 0.0 % 706-2) GRAN MAT x10^3(ANC) 6.44 10*3/uL 1.99-6.95 (test code = 9277221043) IMM GRAN x10^3 (test <0.03 0.00-0.06 code = 2109694809) LYMPH x10^3 (test code 0.33 10*3/uL 1.09-3.23 L = 731-0) MONO x10^3 (test code 0.70 10*3/uL 0.36-1.02 = 742-7) EOS x10^3 (test code = <0.03 0.06-0.53 L 711-2) BASO x10^3 (test code <0.03 0.01-0.09 = 704-7) BASO STIPPLING (test Present A code = 703-9) BANDS (test code = Increased A 1039401724) Lab Interpretation Abnormal (test code = 82542-8) [facility] / [id number] 10:45:25 Test Item Value Reference Range Interpretation Comments PROTIME PATIENT (test 13.9 See_Comment H [Auto mated message] code = 5964-2) The system [employer] generated this result transmitted ref erence range: 10.1 - 1 2.6 Seconds. The reference range was not used to int erpret this result as normal/abnormal . INR (test code = 6301-6) 1.2 Nor mal INR <1.1; Warfarin Therap eutic range 2.0 to 3. 0 or 2.5 to 3.5, dep ending upon the indica tions. Lab Interpretation (test Abnormal code = 48959-3) [facility] / [id number] 10:45:25 Test Item Value Reference Range Interpretation Comments PROTIME PATIENT (test See_Comment H [Auto mated message] code = 5964-2) The system [employer] generated this result transmitted ref erence range: 10.1 - 1 2.6 Seconds. The reference range was not used to int erpret this result as normal/abnormal . INR (test code = 6301-6) Nor mal INR <1.1; Warfarin Therap eutic range 2.0 to 3. 0 or 2.5 to 3.5, dep ending upon the indica tions. Lab Interpretation (test Abnormal code = 19986-2) [facility] / [id number] 10:45:25 Test Item Value Reference Range Interpretation Comments PROTIME PATIENT (test See_Comment H [Auto mated message] code = 5964-2) The system [employer] generated this result transmitted ref erence range: 10.1 - 1 2.6 Seconds. The reference range was not used to int erpret this result as normal/abnormal . INR (test code = 6301-6) Nor mal INR <1.1; Warfarin Therap eutic range 2.0 to 3. 0 or 2.5 to 3.5, dep ending upon the indica tions. Lab Interpretation (test Abnormal code = 83491-1) [facility]+COOX+NA+K+GLU+CA2+ (While Intubated) 2021-01-21 10:16:45 Test Item Value Reference Range Interpretation Comments PH (test code = 2) 7.43 7.35-7.45 PCO2 (test code = 38 See_Comment [Automat ed message] 3063645660) The system [employer] [facility] [facility] [employer] generated this result transmit thuy reference range : 35 - 45 mmHg. The reference range was not used to interpret this result as normal/abnormal . PO2 (test code = 152 See_Comment H [Automated message] 3290130016) The system [employer] generated this result transmit thuy reference range : 80 - 100 mmHg. The reference range was not used to interpret this result as normal/abnormal . HCO3 (test code = 24 See_Comment [Automate d message] 9045487042) The system [employer] [facility] generated this result transmit thuy reference range : 22 - 26 mEq/L. The reference range was not used to interpret this result as normal/abnormal . BE (test code = -0.1 See_Comment [Automated message] 2105868114) The system [employer] [facility] generated this result transmit thuy reference range : -3.0 - 3.0 mEq/ L. The reference r jaswinder was not used to interpret this result as normal/abnormal . THB (test code = 8.4 g/dL 13.5-18.0 L 2581777624) %O2HB (test code = 97.8 % 94.0-99.0 9065469396) %COHB ART (test code = 1.0 % 0.0-1.5 7896657870) %METHB ART (test code = 0.2 % 0.4-1.5 L 8945294541) VOL%O2 ART (test code = 11.9 % 15.0-23.0 L 6731967556) NA (test code = 133 mmol/L 135-145 L 9198080543) K+ (test code = 4.3 mmol/L 3.5-5.0 6067160881) AC CA IONZ (test code = 4.40 mg/dL 4.50-5.30 L 2968346353) GLUCOSE (test code = 157 mg/dL 70-110 H 8970737328) Lab Interpretation Abnormal (test code = 23205-4) [facility]+COOX+NA+K+GLU+CA2+ (While Intubated) 2021-01-21 10:16:45 Test Item Value Reference Range Interpretation Comments PH (test code = 2) 7.35-7.45 PCO2 (test code = See_Comment [Automat ed message] 1896362519) The system [employer] [facility] generated this result transmit thuy reference range : 35 - 45 mmHg. The reference range was not used to interpret this result as normal/abnormal . PO2 (test code = See_Comment H [Automated message] 8732564863) The system [employer] [facility] generated this result transmit thuy reference range : 80 - 100 mmHg. The reference range was not used to interpret this result as normal/abnormal . HCO3 (test code = See_Comment [Automate d message] 1002944236) The system [facility] [facility] generated this result transmit thuy reference range : 22 - 26 mEq/L. The reference range was not used to interpret this result as normal/abnormal . BE (test code = See_Comment [Automated message] 2060326697) The system [employer] generated this result transmit thuy reference range : -3.0 - 3.0 mEq/ L. The reference r jaswinder was not used to interpret this result as normal/abnormal . THB (test code = 8.4 g/dL 13.5-18.0 L 8135465657) %O2HB (test code = 97.8 % 94.0-99.0 6437616686) %COHB ART (test code = 1.0 % 0.0-1.5 4970165842) %METHB ART (test code = 0.2 % 0.4-1.5 L 5848381088) VOL%O2 ART (test code = 11.9 % 15.0-23.0 L 6672291599) NA (test code = 133 mmol/L 135-145 L 2051562210) K+ (test code = 4.3 mmol/L 3.5-5.0 4993054862) AC CA IONZ (test code = 4.40 mg/dL 4.50-5.30 L 5366942452) GLUCOSE (test code = 157 mg/dL 70-110 H 2833527581) Lab Interpretation Abnormal (test code = 41909-8) [facility]+C[facility]X+NA+K+GLU+CA2+ (While Intubated) 2021-01-21 10:16:45 Test Item Value Reference Range Interpretation Comments PH (test code = 2) 7.35-7.45 PCO2 (test code = See_Comment [Automat ed message] 8888464201) The system [employer] [facility] generated this result transmit thuy reference range : 35 - 45 mmHg. The reference range was not used to interpret this result as normal/abnormal . PO2 (test code = See_Comment H [Automated message] 4447940714) The system [employer] [facility] generated this result transmit thuy reference range : 80 - 100 mmHg. The reference range was not used to interpret this result as normal/abnormal . HCO3 (test code = See_Comment [Automate d message] 4102645500) The system [employer] [facility] generated this result transmit thuy reference range : 22 - 26 mEq/L. The reference range was not used to interpret this result as normal/abnormal . BE (test code = See_Comment [Automated message] 7115360408) The system [employer] [facility] generated this result transmit thuy reference range : -3.0 - 3.0 mEq/ L. The reference r jaswinder was not used to interpret this result as normal/abnormal . THB (test code = 8.4 g/dL 13.5-18.0 L 9433992524) %O2HB (test code = 97.8 % 94.0-99.0 8049972621) %COHB ART (test code = 1.0 % 0.0-1.5 3312989447) %METHB ART (test code = 0.2 % 0.4-1.5 L 0234538033) VOL%O2 ART (test code = 11.9 % 15.0-23.0 L 3249644360) NA (test code = 133 mmol/L 135-145 L 1553802049) K+ (test code = 4.3 mmol/L 3.5-5.0 0065592882) AC CA IONZ (test code = 4.40 mg/dL 4.50-5.30 L 5051092394) GLUCOSE (test code = 157 mg/dL 70-110 H 9529784813) Lab Interpretation Abnormal (test code = 76083-9) [facility] WITHOUT [id number] 03:17:28 Test Item Value Reference Range Interpretation Comments WBC (test code = 6690-2) 7.84 See_Comment [A utomated message] The system [employer] [facility] generated this result transmit thuy reference range : 4.20 - 10.70 10*3/?L. The reference range was not used to interpret this result as normal/abnormal . RBC (test code = 789-8) 2.51 See_Comment L [Au tomated message] The system [employer] [facility] generated this result transmit thuy reference range [...] 183 See_Comment [Au tomated message] The system [employer] generated this result transmit thuy reference range : 150 - 328 10*3/?L. The reference range was not used to interpret this result as normal/abnormal . MPV (test code = 9.6 fL 9.8-13.0 L 50951-6) RDW-CV (test code = 15.6 % 12.1-15.4 H 788-0) RDW-SD (test code = 53.7 fL 38.5-51.6 H 75087-1) NRBC x10^3 (test code = <0.01 See_Comment [Au tomated message] 1764751278) The system [employer] [facility] generated this result transmit thuy reference range : 10*3/?L. The reference range was not used to interpret this result as normal/abnormal . NRBC/100 WBC (test code 0.0 See_Comment [Au tomated message] = 7989515691) [facility] generated this result transmit thuy reference range : 0.0 - 10.0 /100 WBC s. The reference r jaswinder was not used to interpret this result as normal/abnormal . IPF % (test code = 6703753399) Lab Interpretation (test Abnormal code = 86077-8) [facility] WITHOUT [id number] 03:17:28 Test Item Value Reference Range Interpretation Comments WBC (test code = 6690-2) See_Comment [A utomated message] The system [employer] generated this result transmit thuy reference range : 4.20 - 10.70 10*3/?L. The reference range was not used to interpret this result as normal/abnormal . RBC (test code = 789-8) See_Comment L [Au tomated message] The system [employer] generated this result transmit thuy reference range [...] g/dL 31.2-35.0 PLT (test code = 777-3) See_Comment [Au tomated message] The system [facility] generated this result transmit thuy reference range : 150 - 328 10*3/?L. The reference range was not used to interpret this result as normal/abnormal . MPV (test code = 9.6 fL 9.8-13.0 L 78128-1) RDW-CV (test code = 15.6 % 12.1-15.4 H 788-0) RDW-SD (test code = 53.7 fL 38.5-51.6 H 18799-5) NRBC x10^3 (test code = <0.01 See_Comment [Au tomated message] 3409753789) The system [employer] [facility] generated this result transmit thuy reference range : 10*3/?L. The reference range was not used to interpret this result as normal/abnormal . NRBC/100 WBC (test code See_Comment [Au tomated message] = 6008569159) The [facility] generated this result transmit thuy reference range : 0.0 - 10.0 /100 WBC s. The reference r jaswinder was not used to interpret this result as normal/abnormal . IPF % (test code = 0861188618) Lab Interpretation (test Abnormal code = 84530-8) [facility] WITHOUT [id number] 03:17:28 Test Item Value Reference Range Interpretation Comments WBC (test code = 6690-2) See_Comment [A utomated message] The system [employer] [facility] generated this result transmit thuy reference range : 4.20 - 10.70 10*3/?L. The reference range was not used to interpret this result as normal/abnormal . RBC (test code = 789-8) See_Comment L [Au tomated message] The system [employer] [facility] generated this result transmit thuy reference range [...] g/dL 31.2-35.0 PLT (test code = 777-3) See_Comment [Au tomated message] The system [employer] [facility] generated this result transmit thuy reference range : 150 - 328 10*3/?L. The reference range was not used to interpret this result as normal/abnormal . MPV (test code = 9.6 fL 9.8-13.0 L 14500-3) RDW-CV (test code = 15.6 % 12.1-15.4 H 788-0) RDW-SD (test code = 53.7 fL 38.5-51.6 H 41666-9) NRBC x10^3 (test code = <0.01 See_Comment [Au tomated message] 9493826447) The system [employer] [facility] generated this result transmit thuy reference range : 10*3/?L. The reference range was not used to interpret this result as normal/abnormal . NRBC/100 WBC (test code See_Comment [Au tomated message] = 0627145583) [facility] this result transmit thuy reference range : 0.0 - 10.0 /100 WBC s. The reference r jaswinder was not used to interpret this result as normal/abnormal . IPF % (test code = 6452635353) Lab Interpretation (test Abnormal code = 21872-7) [facility] [facility] WITHOUT [id number] 01:41:33 Test Item Value Reference Range Interpretation Comments WBC (test code = 6690-2) 6.89 See_Comment [A utomated message] The system [facility] generated this result transmit thuy reference range : 4.20 - 10.70 10*3/?L. The reference range was not used to interpret this result as normal/abnormal . RBC (test code = 789-8) 2.44 See_Comment L [Au tomated message] The system [facility] generated this result transmit thuy reference range [...] 174 See_Comment [Au tomated message] The system [facility] generated this result transmit thuy reference range : 150 - 328 10*3/?L. The reference range was not used to interpret this result as normal/abnormal . MPV (test code = 9.5 fL 9.8-13.0 L 34702-3) RDW-CV (test code = 15.5 % 12.1-15.4 H 788-0) RDW-SD (test code = 53.7 fL 38.5-51.6 H 71650-6) NRBC x10^3 (test code = <0.01 See_Comment [Au tomated message] [id number]) The system [facility] generated this result transmit thuy reference range : 10*3/?L. The reference range was not used to interpret this result as normal/abnormal . NRBC/100 WBC (test code 0.0 See_Comment [Au tomated message] = [id number]) [facility] this result transmit thuy reference range : 0.0 - 10.0 /100 WBC s. The reference r jaswinder was not used to interpret this result as normal/abnormal . IPF % (test code = 2233804371) Lab Interpretation (test Abnormal code = 53225-0) [facility] WITHOUT [id number] 01:41:33 Test Item Value Reference Range Interpretation Comments WBC (test code = 6690-2) See_Comment [A utomated message] The system [facility] generated this result transmit thuy reference range : 4.20 - 10.70 10*3/?L. The reference range was not used to interpret this result as normal/abnormal . RBC (test code = 789-8) See_Comment L [Au tomated message] The system [facility] generated this result transmit thuy reference range [...] g/dL 31.2-35.0 PLT (test code = 777-3) See_Comment [Au tomated message] The system [facility] generated this result transmit thuy reference range : 150 - 328 10*3/?L. The reference range was not used to interpret this result as normal/abnormal . MPV (test code = 9.5 fL 9.8-13.0 L 46052-2) RDW-CV (test code = 15.5 % 12.1-15.4 H 788-0) RDW-SD (test code = 53.7 fL 38.5-51.6 H 99373-2) NRBC x10^3 (test code = <0.01 See_Comment [Au tomated message] [id number]) The system [facility] generated this result transmit thuy reference range : 10*3/?L. The reference range was not used to interpret this result as normal/abnormal . NRBC/100 WBC (test code See_Comment [Au tomated message] = 5629543137) The system [facility] generated this result transmit thuy reference range : 0.0 - 10.0 /100 WBC s. The reference r jaswinder was not used to interpret this result as normal/abnormal . IPF % (test code = 7480520901) Lab Interpretation (test Abnormal code = 44916-4) [facility] WITHOUT [id number] 01:41:33 Test Item Value Reference Range Interpretation Comments WBC (test code = 6690-2) See_Comment [A utomated message] The system [facility] generated this result transmit thuy reference range : 4.20 - 10.70 10*3/?L. The reference range was not used to interpret this result as normal/abnormal . RBC (test code = 789-8) See_Comment L [Au tomated message] The system [facility] generated this result transmit thuy reference range [...] g/dL 31.2-35.0 PLT (test code = 777-3) See_Comment [Au tomated message] The system [facility] generated this result transmit thuy reference range : 150 - 328 10*3/?L. The reference range was not used to interpret this result as normal/abnormal . MPV (test code = 9.5 fL 9.8-13.0 L 47113-5) RDW-CV (test code = 15.5 % 12.1-15.4 H 788-0) RDW-SD (test code = 53.7 fL 38.5-51.6 H 25754-3) NRBC x10^3 (test code = <0.01 See_Comment [Au tomated message] [id number]) The system [facility] generated this result transmit thuy reference range : 10*3/?L. The reference range was not used to interpret this result as normal/abnormal . NRBC/100 WBC (test code See_Comment [Au tomated message] = 2241210660) The system [facility] generated this result transmit thuy reference range : 0.0 - 10.0 /100 WBC s. The reference r jaswinder was not used to interpret this result as normal/abnormal . IPF % (test code = 8078893459) Lab Interpretation (test Abnormal code = 55527-2) [facility]CA2+ (While Intubated) 2021-01-21 01:34:15 Test Item Value Reference Range Interpretation Comments PH (test code = 2) 7.39 7.35-7.45 PCO2 (test code = 39 See_Comment [Automat ed message] [id number]) The system [employer] generated this result transmit thuy reference range : 35 - 45 mmHg. The reference range was not used to interpret this result as normal/abnormal . PO2 (test code = 158 See_Comment H [Automated message] 8041196574) The system [facility] generated this result transmit thuy reference range : 80 - 100 mmHg. The reference range was not used to interpret this result as normal/abnormal . HCO3 (test code = 23 See_Comment [Automate d message] 1244743302) The system [facility] generated this result transmit thuy reference range : 22 - 26 mEq/L. The reference range was not used to interpret this result as normal/abnormal . BE (test code = -2.2 See_Comment [Automated message] 6260565538) The system [facility] generated this result transmit thuy reference range : -3.0 - 3.0 mEq/ L. The reference r jaswinder was not used to interpret this result as normal/abnormal . THB (test code = 8.0 g/dL 13.5-18.0 LL 6555058485) %O2HB (test code = 98.1 % 94.0-99.0 2869522403) %COHB ART (test code = 0.6 % 0.0-1.5 9793768808) %METHB ART (test code = 0.2 % 0.4-1.5 L 7943552431) VOL%O2 ART (test code = 11.4 % 15.0-23.0 L 5090369550) NA (test code = 136 mmol/L 135-145 6374053753) K+ (test code = 3.9 mmol/L 3.5-5.0 0373335037) AC CA IONZ (test code = 4.20 mg/dL 4.50-5.30 L 9082628930) GLUCOSE (test code = 129 mg/dL 70-110 H 1981451715) Lab Interpretation Abnormal (test code = 80868-7) [facility]+NA+K+GLU+CA2+ (While Intubated) 2021-01-21 01:34:15 Test Item Value Reference Range Interpretation Comments PH (test code = 2) 7.35-7.45 PCO2 (test code = See_Comment [Automat ed message] [id number]) The system [employer] [facility] generated this result transmit thuy reference range : 35 - 45 mmHg. The reference range was not used to interpret this result as normal/abnormal . PO2 (test code = See_Comment H [Automated message] 1461416104) The system [facility] generated this result transmit thuy reference range : 80 - 100 mmHg. The reference range was not used to interpret this result as normal/abnormal . HCO3 (test code = See_Comment [Automate d message] 3191525958) The system [facility] [employer] generated this result transmit thuy reference range : 22 - 26 mEq/L. The reference range was not used to interpret this result as normal/abnormal . BE (test code = See_Comment [Automated message] 5086027659) The system [facility] generated this result transmit thuy reference range : -3.0 - 3.0 mEq/ L. The reference r jaswinder was not used to interpret this result as normal/abnormal . THB (test code = 8.0 g/dL 13.5-18.0 LL 7884184780) %O2HB (test code = 98.1 % 94.0-99.0 8108620483) %COHB ART (test code = 0.6 % 0.0-1.5 3740013674) %METHB ART (test code = 0.2 % 0.4-1.5 L 5660659850) VOL%O2 ART (test code = 11.4 % 15.0-23.0 L 0205357464) NA (test code = 136 mmol/L 135-145 1174449850) K+ (test code = 3.9 mmol/L 3.5-5.0 2551077314) AC CA IONZ (test code = 4.20 mg/dL 4.50-5.30 L 6748263089) GLUCOSE (test code = 129 mg/dL 70-110 H 7280994794) Lab Interpretation Abnormal (test code = 58264-6) [facility]+NA+K+GLU+CA2+ (While Intubated) 2021-01-21 01:34:15 Test Item Value Reference Range Interpretation Comments PH (test code = 2) 7.35-7.45 PCO2 (test code = See_Comment [Automat ed message] 1584324757) The system [employer] generated this result transmit thuy reference range : 35 - 45 mmHg. The reference range was not used to interpret this result as normal/abnormal . PO2 (test code = See_Comment H [Automated message] 7272692590) The system [facility] generated this result transmit thuy reference range : 80 - 100 mmHg. The reference range was not used to interpret this result as normal/abnormal . HCO3 (test code = See_Comment [Automate d message] 7689087815) The system [employer] generated this result transmit thuy reference range : 22 - 26 mEq/L. The reference range was not used to interpret this result as normal/abnormal . BE (test code = See_Comment [Automated message] 9734498745) The system [employer] generated this result transmit thuy reference range : -3.0 - 3.0 mEq/ L. The reference r jaswinder was not used to interpret this result as normal/abnormal . THB (test code = 8.0 g/dL 13.5-18.0 LL 1998746942) %O2HB (test code = 98.1 % 94.0-99.0 3284274076) %COHB ART (test code = 0.6 % 0.0-1.5 2203218458) %METHB ART (test code = 0.2 % 0.4-1.5 L 1106328835) VOL%O2 ART (test code = 11.4 % 15.0-23.0 L 6623946958) NA (test code = 136 mmol/L 135-145 4700187587) K+ (test code = 3.9 mmol/L 3.5-5.0 7763555592) AC CA IONZ (test code = 4.20 mg/dL 4.50-5.30 L 5303042556) GLUCOSE (test code = 129 mg/dL 70-110 H 9153822103) Lab Interpretation Abnormal (test code = 09532-8) [facility] 1 View (on admission)2021-01-21 00:29:18 Impression: Endotracheal tube is in appropriate position. Possible orogastric tube or nasogastric tube is looped upon itselfoverlapping the upper and mid esophagus, the distal aspect overlaps theneck and the tip is off the film; repositioning is recommended. Right internal jugular vein [place] catheter and sheath, the tip of thecatheter overlaps the main pulmonary artery. Bilateral and central chest tubes. No pneumothorax. Minimal left lung base subsegmental atelectasis. RL: 460End of report. Exam: Chest (1 View), 01/20/2021 5:30 PM. Ordering Physician: OBED CABRERA. History: s/p open heart surgery. Technique: AP portable view of the chest. Comparison: None. Findings: Endotracheal tube is in appropriate position and the tip ends 4.9 cmsuperior to the vanda. Possible orogastric tube or nasogastric tube is looped upon itselfoverlapping the upper and mid esophagus, the distal aspect overlaps theneck and the tip is off the film; repositioning is recommended. Right internal jugular vein [place] catheter and sheath, the tip ofthecatheter overlaps the main pulmonary artery. Bilateral and central chesttubes. Borderline cardiomegaly. Intact median sternotomy wires. No pneumothorax orsignificant pleural effusion. Minimal left lung base subsegmentalatelectasis. [facility], [facility] User - 01/20/2021 7:30 PM CDTExam: Chest (1 View), 01/20/2021 5:30 PM.Ordering Physician: OBED CABRERA.History: s/p open heart surgery.Technique: AP portable view of the chest.Comparison: None.Findings: Endotracheal tube is in appropriate position and the tip ends 4.9 cmsuperior to the vanda. Possible orogastric tube or nasogastric tube is looped upon itselfoverlapping the upper and mid esophagus, the distal aspect overlaps theneck and the tip is off the film; repositioning is recommended.Right internal jugular vein [place] catheter and sheath, the tip of thecatheter overlaps the main pulmonary artery. Bilateral and central chest tubes.Borderline cardiomegaly. Intact median sternotomy wires. No pneumothorax orsignificant pleuraleffusion. Minimal left lung base subsegmentalatelectasis.IMPRESSIONImpression: Endotracheal tube is in appropriate position. Possible orogastric tube or nasogastric tube is looped upon itselfoverlapping the upper and mid esophagus, the distal aspect overlaps theneck and the tip is off the film; repositioning is recommended.Right internal jugular vein [place] catheter and sheath, the tip of thecatheter overlaps the main pulmonary artery. Bilateral and central chest tubes.No pneumothorax. Minimal left lung base subsegmental atelectasis.RL: 460End of report.Electronically signed by Andi Goins MD at01/20/2021 7:29 [facility]2021-01-21 00:29:18Impression: Endotracheal tube is in appropriate position. Possible orogastric tube or nasogastric tube is looped upon itselfoverlapping the upper and mid esophagus, the distal aspect overlaps theneck and the tip is off the film; repositioning is recommended. Right internal jugular vein [place] catheter and sheath, the tip of thecatheter overlaps the main pulmonary artery. Bilateral and central chest tubes. No pneumothorax. Minimal left lung base subsegmental atelectasis. RL: 460End of report. Exam: Chest (1 View), 01/20/2021 5:30 PM. Ordering Physician: OBED CABRERA. History: s/p open heart surgery. Technique: AP portable view of the chest. Comparison: None. Findings: Endotracheal tube is in appropriate position and the tip ends 4.9 cmsuperior to the vanda. Possible orogastric tube or nasogastric tube is looped upon itselfoverlapping the upper and mid esophagus, the distal aspect overlaps theneck and the tip is off the film; repositioning is recommended. Right internal jugular vein [place] catheter and sheath, the tip ofthecatheter overlaps the main pulmonary artery. Bilateral and central chesttubes. Borderline cardiomegaly. Intact median sternotomy wires. No pneumothorax orsignificant pleural effusion. Minimal left lung base subsegmentalatelectasis. [facility], [facility] User - 01/20/2021 7:30 PM CDTExam: Chest (1 View), 01/20/2021 5:30 PM.Ordering Physician: OBED CABRERA.History: s/p open heart surgery.Technique: AP portable view of the chest.Comparison: None.Findings: Endotracheal tube is in appropriate position and the tip ends 4.9 cmsuperior to the vanda. Possible orogastric tube or nasogastric tube is looped upon itselfoverlapping the upper and mid esophagus, the distal aspect overlaps theneck and the tip is off the film; repositioning is recommended.Right internal jugular vein [place] catheter and sheath, the tip of thecatheter overlaps the main pulmonary artery. Bilateral and central chest tubes.Borderline cardiomegaly. Intact median sternotomy wires. No pneumothorax orsignificant pleuraleffusion. Minimal left lung base subsegmentalatelectasis.IMPRESSIONImpression: Endotracheal tube is in appropriate position. Possible orogastric tube or nasogastric tube is looped upon itselfoverlapping the upper and mid esophagus, the distal aspect overlaps theneck and the tip is off the film; repositioning is recommended.Right internal jugular vein [place] catheter and sheath, the tip of thecatheter overlaps the main pulmonary artery. Bilateral and central chest tubes.No pneumothorax. Minimal left lung base subsegmental atelectasis.RL: 460End of report.Electronically signed by Anid Goins MD at01/20/2021 7:29 [facility]2021-01-21 00:29:18Impression: Endotracheal tube is in appropriate position. Possible orogastric tube or nasogastric tube is looped upon itselfoverlapping the upper and mid esophagus, the distal aspect overlaps theneck and the tip is off the film; repositioning is recommended. Right internal jugular vein [place] catheter and sheath, the tip of thecatheter overlaps the main pulmonary artery. Bilateral and central chest tubes. No pneumothorax. Minimal left lung base subsegmental atelectasis. RL: 460End of report. [facility], [facility] User - 01/20/2021 7:30 PM CDTExam: Chest (1 View), 01/20/2021 5:30 PM.Ordering Physician: OBED CABRERA.History: s/p open heart surgery.Technique: AP portable view of the chest.Comparison: None.Findings: Endotracheal tube is in appropriate position and the tip ends 4.9 cmsuperior to the vanda. Possible orogastric tube or nasogastric tube is looped upon itselfoverlapping the upper and mid esophagus, the distal aspect overlaps theneck and the tip is off the film; repositioning is recommended.Right internal jugular vein [place] catheter and sheath, the tip of thecatheter [...] film; repositioning is recommended.Right internal jugular vein [place] catheter and sheath, the tip of thecatheter overlaps the main pulmonary artery. Bilateral and central chest tubes.No pneumothorax. Minimal left lung base subsegmental atelectasis.RL: 460End of report. [facility] with [id number] 00:09:19 Test Item Value Reference Range Interpretation Comments WBC (test code = See_Comment [Automated 6690-2) message] The sy stem which generated this result transmitted reference range : 4.20 - 10.70 10*3/?L. The reference range was not used to interpret this result as normal/abnormal . RBC (test code = See_Comment L [Automated 789-8) message] The sy [...] (test code = 51.8 fL 38.5-51.6 H 62780-8) RDW-CV (test code = 15.1 % 12.1-15.4 788-0) PLT (test code = See_Comment [Automated 777-3) message] The sy stem which generated this result transmitted reference range : 150 - 328 10*3/ ?L. The reference r jaswinder was not used to interpret this result as normal/abnormal . MPV (test code = 9.8 fL 9.8-13.0 74732-0) NRBC/100 WBC (test See_Comment [Automat ed code = 1426364767) message] The system which generated this result transmitted reference range : 0.0 - 10.0 /100 WBCs. The refer ence range was not u sed to interpret th is result as normal/abnormal . NRBC x10^3 (test code <0.01 See_Comment [Auto mated = 4442104287) message] The s ystem which generated this result transmitted reference range : 10*3/?L. The reference range was not used to interpret this result as normal/abnormal . GRAN MAT (NEUT) % 85.5 % (test code = 770-8) IMM GRAN % (test code 0.50 % = 3894184691) LYMPH % (test code = 7.8 % 736-9) MONO % (test code = 5.9 % 5905-5) EOS % (test code = 0.0 % 713-8) BASO % (test code = 0.3 % 706-2) GRAN MAT x10^3(ANC) 5.26 10*3/uL 1.99-6.95 (test code = 9394505671) IMM GRAN x10^3 (test 0.03 10*3/uL 0.00-0.06 code = 8611543310) LYMPH x10^3 (test code 0.48 10*3/uL 1.09-3.23 L = 731-0) MONO x10^3 (test code 0.36 10*3/uL 0.36-1.02 = 742-7) EOS x10^3 (test code = <0.03 0.06-0.53 L 711-2) BASO x10^3 (test code <0.03 0.01-0.09 = 704-7) Lab Interpretation Abnormal (test code = 52137-2) [facility] with [id number] 00:09:19 Test Item Value Reference Range Interpretation Comments WBC (test code = See_Comment [Automated 6690-2) message] The sy stem which generated this result transmitted reference range : 4.20 - 10.70 10*3/?L. The reference range was not used to interpret this result as normal/abnormal . RBC (test code = See_Comment L [Automated 789-8) message] The sy [...] (test code = 51.8 fL 38.5-51.6 H 22687-7) RDW-CV (test code = 15.1 % 12.1-15.4 788-0) PLT (test code = See_Comment [Automated 777-3) message] The sy stem which generated this result transmitted reference range : 150 - 328 10*3/ ?L. The reference r jaswinder was not used to interpret this result as normal/abnormal . MPV (test code = 9.8 fL 9.8-13.0 58997-2) NRBC/100 WBC (test See_Comment [Automat ed code = 3321315602) message] The system which generated this result transmitted reference range : 0.0 - 10.0 /100 WBCs. The refer ence range was not u sed to interpret th is result as normal/abnormal . NRBC x10^3 (test code <0.01 See_Comment [Auto mated = 7285817930) message] The s ystem which generated this result transmitted reference range : 10*3/?L. The reference range was not used to interpret this result as normal/abnormal . GRAN MAT (NEUT) % 85.5 % (test code = 770-8) IMM GRAN % (test code 0.50 % = 2111023901) LYMPH % (test code = 7.8 % 736-9) MONO % (test code = 5.9 % 5905-5) EOS % (test code = 0.0 % 713-8) BASO % (test code = 0.3 % 706-2) GRAN MAT x10^3(ANC) 5.26 10*3/uL 1.99-6.95 (test code = 0711731162) IMM GRAN x10^3 (test 0.03 10*3/uL 0.00-0.06 code = 0564561936) LYMPH x10^3 (test code 0.48 10*3/uL 1.09-3.23 L = 731-0) MONO x10^3 (test code 0.36 10*3/uL 0.36-1.02 = 742-7) EOS x10^3 (test code = <0.03 0.06-0.53 L 711-2) BASO x10^3 (test code <0.03 0.01-0.09 = 704-7) Lab Interpretation Abnormal (test code = 84845-7) [facility] with [id number] 00:09:19 Test Item Value Reference Range Interpretation Comments WBC (test code = 6.15 See_Comment [Automated 6690-2) message] The sy stem which generated this result transmitted reference range : 4.20 - 10.70 10*3/?L. The reference range was not used to interpret this result as normal/abnormal . RBC (test code = 2.58 See_Comment L [Automated 789-8) message] The sy [...] (test code = 51.8 fL 38.5-51.6 H 87869-7) RDW-CV (test code = 15.1 % 12.1-15.4 788-0) PLT (test code = 160 See_Comment [Automated 777-3) message] The sy stem which generated this result transmitted reference range : 150 - 328 10*3/ ?L. The reference r jaswinder was not used to interpret this result as normal/abnormal . MPV (test code = 9.8 fL 9.8-13.0 14917-6) NRBC/100 WBC (test 0.0 See_Comment [Automat ed code = 9699036003) message] The system which generated this result transmitted reference range : 0.0 - 10.0 /100 WBCs. The refer ence range was not u sed to interpret th is result as normal/abnormal . NRBC x10^3 (test code <0.01 See_Comment [Auto mated = 5249303242) message] The s ystem which generated this result transmitted reference range : 10*3/?L. The reference range was not used to interpret this result as normal/abnormal . GRAN MAT (NEUT) % 85.5 % (test code = 770-8) IMM GRAN % (test code 0.50 % = 2169541150) LYMPH % (test code = 7.8 % 736-9) MONO % (test code = 5.9 % 5905-5) EOS % (test code = 0.0 % 713-8) BASO % (test code = 0.3 % 706-2) GRAN MAT x10^3(ANC) 5.26 10*3/uL 1.99-6.95 (test code = 6233551743) IMM GRAN x10^3 (test 0.03 10*3/uL 0.00-0.06 code = 0531999763) LYMPH x10^3 (test code 0.48 10*3/uL 1.09-3.23 L = 731-0) MONO x10^3 (test code 0.36 10*3/uL 0.36-1.02 = 742-7) EOS x10^3 (test code = <0.03 0.06-0.53 L 711-2) BASO x10^3 (test code <0.03 0.01-0.09 = 704-7) Lab Interpretation Abnormal (test code = 99907-1) [facility] Test Item Value Reference Range Interpretation Comments PHOSPHORUS (test code = 8199645489) 2.1 mg/dL 2.5-5.0 L Lab Interpretation (test code = Abnormal 15150-6) [facility] 23:41:31 Test Item Value Reference Range Interpretation Comments PHOSPHORUS (test code = 8837991593) 2.1 mg/dL 2.5-5.0 L Lab Interpretation (test code = Abnormal 11699-4) [facility]21[facility] 23:41:31 Test Item Value Reference Range Interpretation Comments PHOSPHORUS (test code = 6866382858) 2.1 mg/dL 2.5-5.0 L Lab Interpretation (test code = Abnormal 41694-3) [facility] Metabolic Panel (NA, K, CL, CO2, GLUCOSE, BUN, CREATININE, CA)2021-01-20 23:41:30 Test Item Value Reference Range Interpretation Comments NA (test code = 137 mmol/L 135-145 3642753044) K (test code = 3.9 mmol/L 3.5-5.0 3035812688) CL (test code = 108 mmol/L 98-108 6256106932) CO2 TOTAL (test code = 19 mmol/L 23-31 L 5895795796) AGAP (test code = 2-16 7924431800) BUN (test code = 7 mg/dL 7-23 1802673974) GLUCOSE (test code = 123 mg/dL 70-110 H 6296679321) CREATININE (test code = 0.43 mg/dL 0.60-1.25 L 6989204532) CALCIUM (test code = 7.2 mg/dL 8.6-10.6 L 4762392829) eGFR (test code = mL/min/1.73m2 3055851838) CARLIE (test code = CARLIE) Association of Glomerular Filtration Rate (GFR) and Staging of Kidney Disease* + --+ --+ ------+| GFR (mL/min/1.73 m2) ?| With Kidney Damage ?| ?Without Kidney Damage+ --------+ --------+ +| ?>90 ?| ?Stage one ?| ? Normal ?+ ---+ ---+ -------+| ?60-89 ?| ?Stage two ?| ? Decreased GFR ? + --+ --+ ------+| ?30-59 ?| ?Stage three ?| ? Stage three ? + --+ --+ ------+| ?15-29 ?| ?Stage four ? | ? Stage four ?+ ---+ ---+ -------+| ?<15 (or dialysis) ? ?| ?Stage five ? | ? Stage five ?+ ---+ ---+ -------+ *Each stage assumes the associated GFR level has been in effect for at least three months. ?Stages 1 to 5, with or without kidney [...] tests). Lab Interpretation Abnormal (test code = 08822-0) [facility]30 Test Item Value Reference Range Interpretation Comments MAGNESIUM (test code = 4266090803) 2.3 mg/dL 1.7-2.4 Lab Interpretation (test code = Normal 57143-2) [facility] Metabolic Panel (NA, K, CL, CO2, GLUCOSE, BUN, CREATININE, CA)2021-01-20 23:41:30 Test Item Value Reference Range Interpretation Comments NA (test code = 137 mmol/L 135-145 0509625882) K (test code = 3.9 mmol/L 3.5-5.0 9584827443) CL (test code = 108 mmol/L 98-108 4528483101) CO2 TOTAL (test code = 19 mmol/L 23-31 L 1634843817) AGAP (test code = 2-16 7773515670) BUN (test code = 7 mg/dL 7-23 2529129817) GLUCOSE (test code = 123 mg/dL 70-110 H 6181635848) CREATININE (test code = 0.43 mg/dL 0.60-1.25 L 4088838693) CALCIUM (test code = 7.2 mg/dL 8.6-10.6 L 8189315969) eGFR (test code = mL/min/1.73m2 6663946040) CARLIE (test code = CARLIE) Association of Glomerular Filtration Rate (GFR) and Staging of Kidney Disease* + --+ --+ ------+| GFR (mL/min/1.73 m2) ?| With Kidney Damage ?| ?Without Kidney Damage+ --------+ --------+ +| ?>90 ?| ?Stage one ?| ? Normal ?+ ---+ ---+ -------+| ?60-89 ?| ?Stage two ?| ? Decreased GFR ? + --+ --+ ------+| ?30-59 ?| ?Stage three ?| ? Stage three ? + --+ --+ ------+| ?15-29 ?| ?Stage four ? | ? Stage four ?+ ---+ ---+ -------+| ?<15 (or dialysis) ? ?| ?Stage five ? | ? Stage five ?+ ---+ ---+ -------+ *Each stage assumes the associated GFR level has been in effect for at least three months. ?Stages 1 to 5, with or without kidney [...] tests). Lab Interpretation Abnormal (test code = 68808-3) [facility] 23:41:30 Test Item Value Reference Range Interpretation Comments MAGNESIUM (test code = 1899579423) 2.3 mg/dL 1.7-2.4 Lab Interpretation (test code = Normal 76345-6) [facility] (NA, K, CL, CO2, GLUCOSE, BUN, CREATININE, CA)2021-01-20 23:41:30 Test Item Value Reference Range Interpretation Comments NA (test code = 137 mmol/L 135-145 5798994916) K (test code = 3.9 mmol/L 3.5-5.0 6717977047) CL (test code = 108 mmol/L 98-108 3355441197) CO2 TOTAL (test code = 19 mmol/L 23-31 L 3216486927) AGAP (test code = 10 2-16 4169027751) BUN (test code = 7 mg/dL 7-23 3810302313) GLUCOSE (test code = 123 mg/dL 70-110 H 1880342456) CREATININE (test code = 0.43 mg/dL 0.60-1.25 L 8508105533) CALCIUM (test code = 7.2 mg/dL 8.6-10.6 L 8823145693) eGFR (test code = 189.5 mL/min/1.73m2 7670136227) CARLIE (test code = CARLIE) Association of [...] tests). Lab Interpretation Abnormal (test code = 78777-5) [facility] 23:41:30 Test Item Value Reference Range Interpretation Comments MAGNESIUM (test code = 2717207309) 2.3 mg/dL 1.7-2.4 Lab Interpretation (test code = Normal 17468-5) [facility] WITH [id number] 22:53:41 Test Item Value Reference Range Interpretation Comments WBC (test code = See_Comment [Automated 9422-2) message] The sy stem which generated this result transmitted reference range : 4.20 - 10.70 10*3/?L. The reference range was not used to interpret this result as normal/abnormal . RBC (test code = See_Comment L [Automated 362-8) message] The sy stem which generated this [...] RDW-SD (test code = 50.9 fL 38.5-51.6 54346-7) RDW-CV (test code = 14.8 % 12.1-15.4 788-0) PLT (test code = See_Comment L [Automated 777-3) message] The sy stem which generated this result transmitted reference range : 150 - 328 10*3/ ?L. The reference r jaswinder was not used to interpret this result as normal/abnormal . MPV (test code = 9.7 fL 9.8-13.0 L 88102-3) IPF % (test code = 2.5 % 1.2-10.7 Platelet count 5706542637) measured by fluorescence method. NRBC/100 WBC (test See_Comment [Automat ed code = 3082640524) message] The system which generated this result transmitted reference range : 0.0 - 10.0 /100 WBCs. The refer ence range was not u sed to interpret th is result as normal/abnormal . NRBC x10^3 (test code <0.01 See_Comment [Auto mated = 6485516488) message] The s ystem which generated this result transmitted reference range : 10*3/?L. The reference range was not used to interpret this result as normal/abnormal . GRAN MAT (NEUT) % 81.7 % (test code = 770-8) IMM GRAN % (test code 0.70 % = 4354586041) LYMPH % (test code = 11.3 % 736-9) MONO % (test code = 5.7 % 5905-5) EOS % (test code = 0.3 % 713-8) BASO % (test code = 0.3 % 706-2) GRAN MAT x10^3(ANC) 5.59 10*3/uL 1.99-6.95 (test code = 3567353451) IMM GRAN x10^3 (test 0.05 10*3/uL 0.00-0.06 code = 9367926321) LYMPH x10^3 (test code 0.77 10*3/uL 1.09-3.23 L = 731-0) MONO x10^3 (test code 0.39 10*3/uL 0.36-1.02 = 742-7) EOS x10^3 (test code = <0.03 0.06-0.53 L 711-2) BASO x10^3 (test code <0.03 0.01-0.09 = 704-7) ALEJANDRO CELLS (test code 2+ See_Comment A [Auto mated = 7690-9) message] The sy stem which generated this result transmitted reference range : (none). The reference range was not used to interpret this result as normal/abnormal . Lab Interpretation Abnormal (test code = 25711-4) [facility] WITH [id number] 22:53:41 Test Item Value Reference Range Interpretation Comments WBC (test code = See_Comment [Automated 5690-2) message] The sy stem which generated this result transmitted reference range : 4.20 - 10.70 10*3/?L. The reference range was not used to interpret this result as normal/abnormal . RBC (test code = See_Comment L [Automated 789-8) message] The sy [...] RDW-SD (test code = 50.9 fL 38.5-51.6 87897-9) RDW-CV (test code = 14.8 % 12.1-15.4 788-0) PLT (test code = See_Comment L [Automated 777-3) message] The sy stem which generated this result transmitted reference range : 150 - 328 10*3/ ?L. The reference r jaswinder was not used to interpret this result as normal/abnormal . MPV (test code = 9.7 fL 9.8-13.0 L 46128-7) IPF % (test code = 2.5 % 1.2-10.7 Platelet count 2464153894) measured by fluorescence method. NRBC/100 WBC (test See_Comment [Automat ed code = 0328372475) message] The system which generated this result transmitted reference range : 0.0 - 10.0 /100 WBCs. The refer ence range was not u sed to interpret th is result as normal/abnormal . NRBC x10^3 (test code <0.01 See_Comment [Auto mated = 7530055612) message] The s ystem which generated this result transmitted reference range : 10*3/?L. The reference range was not used to interpret this result as normal/abnormal . GRAN MAT (NEUT) % 81.7 % (test code = 770-8) IMM GRAN % (test code 0.70 % = 8207746012) LYMPH % (test code = 11.3 % 736-9) MONO % (test code = 5.7 % 5905-5) EOS % (test code = 0.3 % 713-8) BASO % (test code = 0.3 % 706-2) GRAN MAT x10^3(ANC) 5.59 10*3/uL 1.99-6.95 (test code = 6066661562) IMM GRAN x10^3 (test 0.05 10*3/uL 0.00-0.06 code = 6683113128) LYMPH x10^3 (test code 0.77 10*3/uL 1.09-3.23 L = 731-0) MONO x10^3 (test code 0.39 10*3/uL 0.36-1.02 = 742-7) EOS x10^3 (test code = <0.03 0.06-0.53 L 711-2) BASO x10^3 (test code <0.03 0.01-0.09 = 704-7) ALEJANDRO CELLS (test code 2+ See_Comment A [Auto mated = 7779-9) message] The sy stem which generated this result transmitted reference range : (none). The reference range was not used to interpret this result as normal/abnormal . Lab Interpretation Abnormal (test code = 13959-9) [facility] WITH [id number] 22:53:41 Test Item Value Reference Range Interpretation [...] RDW-SD (test code = 50.9 fL 38.5-51.6 06163-0) RDW-CV (test code = 14.8 % 12.1-15.4 788-0) PLT (test code = 68 See_Comment L [Automated 777-3) message] The sy stem which generated this result transmitted reference range : 150 - 328 10*3/ ?L. The reference r jaswinder was not used to interpret this result as normal/abnormal . MPV (test code = 9.7 fL 9.8-13.0 L 67876-5) IPF % (test code = 2.5 % 1.2-10.7 Platelet count 2669493870) measured by fluorescence method. NRBC/100 WBC (test 0.0 See_Comment [Automat ed code = 9064134825) message] The system which generated this result transmitted reference range : 0.0 - 10.0 /100 WBCs. The refer ence range was not u sed to interpret th is result as normal/abnormal . NRBC x10^3 (test code <0.01 See_Comment [Auto mated = 3093231929) message] The s ystem which generated this result transmitted reference range : 10*3/?L. The reference range was not used to interpret this result as normal/abnormal . GRAN MAT (NEUT) % 81.7 % (test code = 770-8) IMM GRAN % (test code 0.70 % = 0117127355) LYMPH % (test code = 11.3 % 736-9) MONO % (test code = 5.7 % 5905-5) EOS % (test code = 0.3 % 713-8) BASO % (test code = 0.3 % 706-2) GRAN MAT x10^3(ANC) 5.59 10*3/uL 1.99-6.95 (test code = 1569323207) IMM GRAN x10^3 (test 0.05 10*3/uL 0.00-0.06 code = 7323197530) LYMPH x10^3 (test code 0.77 10*3/uL 1.09-3.23 L = 731-0) MONO x10^3 (test code 0.39 10*3/uL 0.36-1.02 = 742-7) EOS x10^3 (test code = <0.03 0.06-0.53 L 711-2) BASO x10^3 (test code <0.03 0.01-0.09 = 704-7) ALEJANDRO CELLS (test code 2+ See_Comment A [Auto mated = 7790-9) message] The sy stem which generated this result transmitted reference range : (none). The reference range was not used to interpret this result as normal/abnormal . Lab Interpretation Abnormal (test code = 84534-7) [facility]K+GLU+CA2+ (While Intubated) 2021-01-20 22:49:48 Test Item Value Reference Range Interpretation Comments PH (test code = 2) 7.35-7.45 H PCO2 (test code = See_Comment L [Automat ed message] 9916057930) The system whic h generated this result transmit thuy reference range : 35 - 45 mmHg. The reference range was not used to interpret this result as normal/abnormal . PO2 (test code = See_Comment H [Automated message] 7248289883) The system [facility] generated this result transmit thuy reference range : 80 - 100 mmHg. The reference range was not used to interpret this result as normal/abnormal . HCO3 (test code = See_Comment L [Automate d message] 4770159301) The system [facility] generated this result transmit thuy reference range : 22 - 26 mEq/L. The reference range was not used to interpret this result as normal/abnormal . BE (test code = See_Comment L [Automated message] 0812822019) The system [facility] generated this result transmit thuy reference range : -3.0 - 3.0 mEq/ L. The reference r jaswinder was not used to interpret this result as normal/abnormal . THB (test code = 8.5 g/dL 13.5-18.0 L 8490630142) %O2HB (test code = 99.0 % 94.0-99.0 1908365207) %COHB ART (test code = 0.3 % 0.0-1.5 2297530346) %METHB ART (test code = 0.3 % 0.4-1.5 L 8505436020) VOL%O2 ART (test code = 12.6 % 15.0-23.0 L 3460140216) NA (test code = 138 mmol/L 135-145 6665616064) K+ (test code = 4.0 mmol/L 3.5-5.0 7304975057) AC CA IONZ (test code = 4.00 mg/dL 4.50-5.30 L 3023554849) GLUCOSE (test code = 121 mg/dL 70-110 H 0090436377) Lab Interpretation Abnormal (test code = 21698-8) [facility]NA+K+GLU+CA2+ (While Intubated) 2021-01-20 22:49:48 Test Item Value Reference Range Interpretation Comments PH (test code = 2) 7.35-7.45 H PCO2 (test code = See_Comment L [Automat ed message] 6225439598) The system [facility] generated this result transmit thuy reference range : 35 - 45 mmHg. The reference range was not used to interpret this result as normal/abnormal . PO2 (test code = See_Comment H [Automated message] 9843783537) The system [facility] generated this result transmit thuy reference range : 80 - 100 mmHg. The reference range was not used to interpret this result as normal/abnormal . HCO3 (test code = See_Comment L [Automate d message] 7928015052) The system [facility] generated this result transmit thuy reference range : 22 - 26 mEq/L. The reference range was not used to interpret this result as normal/abnormal . BE (test code = See_Comment L [Automated message] 3799686283) The system [facility] generated this result transmit thuy reference range : -3.0 - 3.0 mEq/ L. The reference r jaswinder was not used to interpret this result as normal/abnormal . THB (test code = 8.5 g/dL 13.5-18.0 L 9360954203) %O2HB (test code = 99.0 % 94.0-99.0 7892209144) %COHB ART (test code = 0.3 % 0.0-1.5 9735961473) %METHB ART (test code = 0.3 % 0.4-1.5 L 8735498557) VOL%O2 ART (test code = 12.6 % 15.0-23.0 L 4129450273) NA (test code = 138 mmol/L 135-145 2295000535) K+ (test code = 4.0 mmol/L 3.5-5.0 7605621460) AC CA IONZ (test code = 4.00 mg/dL 4.50-5.30 L 3270250486) GLUCOSE (test code = 121 mg/dL 70-110 H 5291086332) Lab Interpretation Abnormal (test code = 76463-0) [facility]+NA+K+GLU+CA2+ (While Intubated) 2021-01-20 22:49:48 Test Item Value Reference Range Interpretation Comments PH (test code = 2) 7.48 7.35-7.45 H PCO2 (test code = 26 See_Comment L [Automat ed message] 9844720372) The system [facility] generated this result transmit thuy reference range : 35 - 45 mmHg. The reference range was not used to interpret this result as normal/abnormal . PO2 (test code = 291 See_Comment H [Automated message] 8286054932) The system [facility] generated this result transmit thuy reference range : 80 - 100 mmHg. The reference range was not used to interpret this result as normal/abnormal . HCO3 (test code = 20 See_Comment L [Automate d message] 6121318290) The system [facility] [facility] generated this result transmit thuy reference range : 22 - 26 mEq/L. The reference range was not used to interpret this result as normal/abnormal . BE (test code = -3.9 See_Comment L [Automated message] 0795513450) The system [facility] generated this result transmit thuy reference range : -3.0 - 3.0 mEq/ L. The reference r jaswinder was not used to interpret this result as normal/abnormal . THB (test code = 8.5 g/dL 13.5-18.0 L 1793792849) %O2HB (test code = 99.0 % 94.0-99.0 8095411321) %COHB ART (test code = 0.3 % 0.0-1.5 3024327922) %METHB ART (test code = 0.3 % 0.4-1.5 L 7160340254) VOL%O2 ART (test code = 12.6 % 15.0-23.0 L 6323966047) NA (test code = 138 mmol/L 135-145 3501346596) K+ (test code = 4.0 mmol/L 3.5-5.0 0622372887) AC CA IONZ (test code = 4.00 mg/dL 4.50-5.30 L 3074301805) GLUCOSE (test code = 121 mg/dL 70-110 H 0469576192) Lab Interpretation Abnormal (test code = 35638-1) [facility] Test Item Value Reference Range Interpretation Comments Fibrinogen (test code = 1906201940) 140 mg/dL 167-453 L Lab Interpretation (test code = Abnormal 72292-9) [facility]2021-04-28 22:31:20 Test Item Value Reference Range Interpretation Comments Fibrinogen (test code = 8988511283) 140 mg/dL 167-453 L Lab Interpretation (test code = Abnormal 70817-4) [facility] 22:31:20 Test Item Value Reference Range Interpretation Comments Fibrinogen (test code = 5272015751) 140 mg/dL 167-453 L Lab Interpretation (test code = Abnormal 61527-3) [facility] / [id number] 22:31:15 Test Item Value Reference Range Interpretation Comments PROTIME PATIENT (test See_Comment H [Auto mated message] code = 5964-2) The system [facility] [employer] generated this result transmitted ref erence range: 10.1 - 1 2.6 Seconds. The reference range was not used to int erpret this result as normal/abnormal . INR (test code = 6301-6) Nor mal INR <1.1; Warfarin Therap eutic range 2.0 to 3. 0 or 2.5 to 3.5, dep ending upon the indica tions. Lab Interpretation (test Abnormal code = 47786-9) [facility] / [id number] 22:31:15 Test Item Value Reference Range Interpretation Comments PROTIME PATIENT (test See_Comment H [Auto mated message] code = 5964-2) The system [facility] generated this result transmitted ref erence range: 10.1 - 1 2.6 Seconds. The reference range was not used to int erpret this result as normal/abnormal . INR (test code = 6301-6) Nor mal INR <1.1; Warfarin Therap eutic range 2.0 to 3. 0 or 2.5 to 3.5, dep ending upon the indica tions. Lab Interpretation (test Abnormal code = 79833-7) [facility] / [id number] 22:31:15 Test Item Value Reference Range Interpretation Comments PROTIME PATIENT (test 20.8 See_Comment H [Auto mated message] code = 5964-2) The system [facility] generated this result transmitted ref erence range: 10.1 - 1 2.6 Seconds. The reference range was not used to int erpret this result as normal/abnormal . INR (test code = 6301-6) 1.8 Nor mal INR <1.1; Warfarin Therap eutic range 2.0 to 3. 0 or 2.5 to 3.5, dep ending upon the indica tions. Lab Interpretation (test Abnormal code = 66583-4) [facility] [id number] 22:30:08 Test Item Value Reference Range Interpretation Comments APTT Patient (test code = See_Comment [ Automated message] 3173-2) The system [facility] [facility] generated this result transmitted ref erence range: 26 - 36 Seconds. The re ference range was not u sed to interpret this result as normal/abnor mal. Lab Interpretation (test Normal code = 58272-1) [facility] [id number] 22:30:08 Test Item Value Reference Range Interpretation Comments APTT Patient (test code = See_Comment [ Automated message] 3173-2) The system [facility] generated this result transmitted ref erence range: 26 - 36 Seconds. The re ference range was not u sed to interpret this result as normal/abnor mal. Lab Interpretation (test Normal code = 65822-0) [facility] [id number] 22:30:08 Test Item Value Reference Range Interpretation Comments APTT Patient (test code = 28 See_Comment [ Automated message] 3173-2) The system [facility] [employer] [facility] generated this result transmitted ref erence range: 26 - 36 Seconds. The re ference range was not u sed to interpret this result as normal/abnor mal. Lab Interpretation (test Normal code = 88537-1) [facility] ACT HIGH [id number] 22:22:24 Test Item Value Reference Range Interpretation Comments ACTHR (test code = See_Comment H [Automat ed message] 8587278368) The system [facility] [facility] [facility] generated this result transmitted ref erence range: 96 - 152 Seconds. The reference range was not used to int erpret this result as normal/abnormal . Lab Interpretation (test Abnormal code = 32456-9) [facility] ACT HIGH [id number] 22:22:24 Test Item Value Reference Range Interpretation Comments ACTHR (test code = See_Comment [Automat ed message] 9601454641) The system [facility] generated this result transmitted ref erence range: 96 - 152 Seconds. The re ference range was not u sed to interpret this result as normal/abnor mal. Lab Interpretation (test Normal code = 19918-1) [facility] HIGH [id number] 22:22:24 Test Item Value Reference Range Interpretation Comments ACTHR (test code = 519 See_Comment H [Automat ed message] 6481579563) The system [facility] generated this result transmitted ref erence range: 96 - 152 Seconds. The reference range was not used to int erpret this result as normal/abnormal . Lab Interpretation (test Abnormal code = 92496-4) [facility] HIGH [id number] 22:22:24 Test Item Value Reference Range Interpretation Comments ACTHR (test code = See_Comment H [Automat ed message] 9774773549) The system [facility] generated this result transmitted ref erence range: 96 - 152 Seconds. The reference range was not used to int erpret this result as normal/abnormal . Lab Interpretation (test Abnormal code = 98549-2) [facility] HIGH [id number] 22:22:24 Test Item Value Reference Range Interpretation Comments ACTHR (test code = See_Comment [Automat ed message] 6598724975) The system [facility] generated this result transmitted ref erence range: 96 - 152 Seconds. The re ference range was not u sed to interpret this result as normal/abnor mal. Lab Interpretation (test Normal code = 11101-4) [facility] HIGH [id number] 22:22:24 Test Item Value Reference Range Interpretation Comments ACTHR (test code = 106 See_Comment [Automat ed message] 4512848919) The system [facility] generated this result transmitted ref erence range: 96 - 152 Seconds. The re ference range was not u sed to interpret this result as normal/abnor mal. Lab Interpretation (test Normal code = 07967-4) [facility] Platelets (in units): 2 Units~ 2021-01-20 21:54:03 Test Item Value Reference Range Interpretation Comments Unit Blood Type (test O Pos code = 4410) ISBT Blood Type Code (test code = 145300) Unit Number (test code [id number] = 4411) Blood Expiration Date & Time (test code = 464502) Status Information Issued (test code = 4412) Product Identification Platelets (test code = 4413) Product Code (test Y0291R32 Performed at [facility] code = 4414) [facility] Services [address] [address]Sq[place] Free: [phone] A No. [id number] [facility] Platelets (in units): 2 Units~ 2021-01-20 21:54:03 Test Item Value Reference Range Interpretation Comments Unit Blood Type (test O Pos code = 4410) ISBT Blood Type Code (test code = 546282) Unit Number (test code [id number] = 4411) Blood Expiration Date & Time (test code = 660509) Status Information Issued (test code = 4412) Product Identification Platelets (test code = 4413) Product Code (test [id number] Performed at [facility] code = 4414) [facility] [address] [address] Free: [phone] A No. [id number] [facility] Platelets (in units): 2 Units~ 2021-01-20 21:54:03 Test Item Value Reference Range Interpretation Comments Unit Blood Type (test O Pos code = 4410) ISBT Blood Type Code 5100 (test code = 143277) Unit Number (test code [id number] = 4411) Blood Expiration Date [id number] & Time (test code = 475588) Status Information Issued (test code = 4412) Product Identification Platelets (test code = 4413) Product Code (test W7643A52 Performed at [facility] code = 4414) [facility] Services [address] [address]Dqrc Free: [phone] A No. [id number] [facility] ACUTE CARE [id number] 21:19:29 Test Item Value Reference Range Interpretation Comments PH (test code = 2) 7.35-7.45 PCO2 (test code = See_Comment L [Automat ed message] 3112294409) The system ic h generated this result transmit thuy reference range : 35 - 45 mmHg. The reference range was not used to interpret this result as normal/abnormal . PO2 (test code = See_Comment H [Automated message] 5601823052) The system ic h generated this result transmit thuy reference range : 80 - 100 mmHg. The reference range was not used to interpret this result as normal/abnormal . BE (test code = See_Comment [Automated message] 8094641451) The system ic h generated this result transmit thuy reference range : -3.0 - 3.0 mEq/ L. The reference r jaswinder was not used to interpret this result as normal/abnormal . HCO3 (test code = See_Comment L [Automate d message] 5596133904) The system [employer] generated this result transmit thuy reference range : 22 - 26 mEq/L. The reference range was not used to interpret this result as normal/abnormal . %O2HB (test code = 100.0 % 95.0-98.0 H 3596228936) NA (test code = 141 mmol/L 135-145 9643188531) K+ (test code = 3.8 mmol/L 3.5-5.0 2443852341) AC CA IONZ (test code = 5.90 mg/dL 4.50-5.30 H 5382543662) GLUCOSE (test code = 131 mg/dL 70-110 H 2856681955) AC Hematocrit (test See_Comment LL [Automa thuy message] code = 1339756696) The syste m which generated this result transmit thuy reference range : 40 - 54 VOL %. The reference range was not used to interpret this result as normal/abnormal . THB (test code = 5.4 g/dL 13.5-18.0 LL 1995235173) AC TC02 (test code = 22 mmol/L See_Comment L [Autom ated message] 2744086947) The system [facility] h generated this result transmit thuy reference range : 23-27 mmol/L. T he reference range was not used to interpret this result as normal/abnormal . Lab Interpretation Abnormal (test code = 66897-8) [facility] ACUTE CARE [id number] 21:19:29 Test Item Value Reference Range Interpretation Comments PH (test code = 2) 7.35-7.45 PCO2 (test code = See_Comment L [Automat ed message] [id number]) The system [employer] h generated this result transmit thuy reference range : 35 - 45 mmHg. The reference range was not used to interpret this result as normal/abnormal . PO2 (test code = See_Comment H [Automated message] 0700392742) The system [employer] h generated this result transmit thuy reference range : 80 - 100 mmHg. The reference range was not used to interpret this result as normal/abnormal . BE (test code = See_Comment [Automated message] 9583870845) The system [employer] h generated this result transmit thuy reference range : -3.0 - 3.0 mEq/ L. The reference r jaswinder was not used to interpret this result as normal/abnormal . HCO3 (test code = See_Comment L [Automate d message] 1923836972) The system [facility] generated this result transmit thuy reference range : 22 - 26 mEq/L. The reference range was not used to interpret this result as normal/abnormal . %O2HB (test code = 100.0 % 95.0-98.0 H 0761074213) NA (test code = 141 mmol/L 135-145 4311066439) K+ (test code = 3.8 mmol/L 3.5-5.0 2878694955) AC CA IONZ (test code = 5.90 mg/dL 4.50-5.30 H 4408309264) GLUCOSE (test code = 131 mg/dL 70-110 H 4609441315) AC Hematocrit (test See_Comment LL [Automa thuy message] code = 8798555494) The syste m which generated this result transmit thuy reference range : 40 - 54 VOL %. The reference range was not used to interpret this result as normal/abnormal . THB (test code = 5.4 g/dL 13.5-18.0 LL 4071712103) AC TC02 (test code = 22 mmol/L See_Comment L [Autom ated message] 2370461858) The system [employer] generated this result transmit thuy reference range : 23-27 mmol/L. T he reference range was not used to interpret this result as normal/abnormal . Lab Interpretation Abnormal (test code = 68315-7) [facility] ACUTE CARE [id number] 21:19:29 Test Item Value Reference Range Interpretation Comments PH (test code = 2) 7.43 7.35-7.45 PCO2 (test code = 32 See_Comment L [Automat ed message] 1118038005) The system [employer] h generated this result transmit thuy reference range : 35 - 45 mmHg. The reference range was not used to interpret this result as normal/abnormal . PO2 (test code = 408 See_Comment H [Automated message] 3362586283) The system [employer] generated this result transmit thuy reference range : 80 - 100 mmHg. The reference range was not used to interpret this result as normal/abnormal . BE (test code = -3.0 See_Comment [Automated message] 6614957964) The system [facility] generated this result transmit thuy reference range : -3.0 - 3.0 mEq/ L. The reference r jaswinder was not used to interpret this result as normal/abnormal . HCO3 (test code = 21 See_Comment L [Automate d message] 0785608203) The system [facility] generated this result transmit thuy reference range : 22 - 26 mEq/L. The reference range was not used to interpret this result as normal/abnormal . %O2HB (test code = 100.0 % 95.0-98.0 H 8632233824) NA (test code = 141 mmol/L 135-145 1448402417) K+ (test code = 3.8 mmol/L 3.5-5.0 7713747135) AC CA IONZ (test code = 5.90 mg/dL 4.50-5.30 H 1718517197) GLUCOSE (test code = 131 mg/dL 70-110 H 6609630887) AC Hematocrit (test 16 See_Comment LL [Automa thuy message] code = 9289601290) The syste m which generated this result transmit thuy reference range : 40 - 54 VOL %. The reference range was not used to interpret this result as normal/abnormal . THB (test code = 5.4 g/dL 13.5-18.0 LL 4748538599) AC TC02 (test code = 22 mmol/L See_Comment L [Autom ated message] 5204445729) The system [facility] generated this result transmit thuy reference range : 23-27 mmol/L. T he reference range was not used to interpret this result as normal/abnormal . Lab Interpretation Abnormal (test code = 18764-2) [facility] ACUTE CARE [id number] 20:35:53 Test Item Value Reference Range Interpretation Comments PH (test code = 2) 7.35-7.45 PCO2 (test code = See_Comment L [Automat ed message] 6913083611) The system [facility]ic h generated this result transmit thuy reference range : 35 - 45 mmHg. The reference range was not used to interpret this result as normal/abnormal . PO2 (test code = See_Comment H [Automated message] 8534549017) The system whic h generated this result transmit thuy reference range : 80 - 100 mmHg. The reference range was not used to interpret this result as normal/abnormal . BE (test code = See_Comment [Automated message] 2041178326) The system [employer] h generated this result transmit thuy reference range : -3.0 - 3.0 mEq/ L. The reference r jaswinder was not used to interpret this result as normal/abnormal . HCO3 (test code = See_Comment [Automate d message] 6816083255) The system [employer] h generated this result transmit thuy reference range : 22 - 26 mEq/L. The reference range was not used to interpret this result as normal/abnormal . %O2HB (test code = 100.0 % 95.0-98.0 H 8844422019) NA (test code = 138 mmol/L 135-145 6575573268) K+ (test code = 4.6 mmol/L 3.5-5.0 8733579099) AC CA IONZ (test code = 3.40 mg/dL 4.50-5.30 L 4598038735) GLUCOSE (test code = 170 mg/dL 70-110 H 2522364769) AC Hematocrit (test See_Comment LL [Automa thuy message] code = 4960299909) The syste m which generated this result transmit thuy reference range : 40 - 54 VOL %. The reference range was not used to interpret this result as normal/abnormal . THB (test code = 6.8 g/dL 13.5-18.0 LL 7847430463) AC TC02 (test code = 23 mmol/L See_Comment [Autom ated message] 9022380258) The system [facility] generated this result transmit thuy reference range : 23-27 mmol/L. T he reference range was not used to interpret this result as normal/abnormal . Lab Interpretation Abnormal (test code = 91200-3) [facility] ACUTE CARE [id number] 20:35:53 Test Item Value Reference Range Interpretation Comments PH (test code = 2) 7.35-7.45 PCO2 (test code = See_Comment L [Automat ed message] 1876576467) The system [facility] generated this result transmit thuy reference range : 35 - 45 mmHg. The reference range was not used to interpret this result as normal/abnormal . PO2 (test code = See_Comment H [Automated message] 9496060112) The system [facility] generated this result transmit thuy reference range : 80 - 100 mmHg. The reference range was not used to interpret this result as normal/abnormal . BE (test code = See_Comment [Automated message] 5222199615) The system [facility] generated this result transmit thuy reference range : -3.0 - 3.0 mEq/ L. The reference r jaswinder was not used to interpret this result as normal/abnormal . HCO3 (test code = See_Comment [Automate d message] 1605779109) The system [facility] generated this result transmit thuy reference range : 22 - 26 mEq/L. The reference range was not used to interpret this result as normal/abnormal . %O2HB (test code = 100.0 % 95.0-98.0 H 0044904587) NA (test code = 138 mmol/L 135-145 8241537266) K+ (test code = 4.6 mmol/L 3.5-5.0 7888358715) AC CA IONZ (test code = 3.40 mg/dL 4.50-5.30 L 6206357910) GLUCOSE (test code = 170 mg/dL 70-110 H 1484511318) AC Hematocrit (test See_Comment LL [Automa thuy message] code = 7789896090) The syste m which generated this result transmit thuy reference range : 40 - 54 VOL %. The reference range was not used to interpret this result as normal/abnormal . THB (test code = 6.8 g/dL 13.5-18.0 LL 5693245900) AC TC02 (test code = 23 mmol/L See_Comment [Autom ated message] 9212572214) The system [facility] generated this result transmit thuy reference range : 23-27 mmol/L. T he reference range was not used to interpret this result as normal/abnormal . Lab Interpretation Abnormal (test code = 72943-6) [facility] ACUTE CARE [id number] 20:35:53 Test Item Value Reference Range Interpretation Comments PH (test code = 2) 7.44 7.35-7.45 PCO2 (test code = 33 See_Comment L [Automat ed message] 6545504095) The system [facility] generated this result transmit thuy reference range : 35 - 45 mmHg. The reference range was not used to interpret this result as normal/abnormal . PO2 (test code = 213 See_Comment H [Automated message] 4946134307) The system [facility] generated this result transmit thuy reference range : 80 - 100 mmHg. The reference range was not used to interpret this result as normal/abnormal . BE (test code = -2.0 See_Comment [Automated message] 9336538118) The system [facility] generated this result transmit thuy reference range : -3.0 - 3.0 mEq/ L. The reference r jaswinder was not used to interpret this result as normal/abnormal . HCO3 (test code = 22 See_Comment [Automate d message] 1576648971) The system [facility] generated this result transmit thuy reference range : 22 - 26 mEq/L. The reference range was not used to interpret this result as normal/abnormal . %O2HB (test code = 100.0 % 95.0-98.0 H 8395770223) NA (test code = 138 mmol/L 135-145 7693500831) K+ (test code = 4.6 mmol/L 3.5-5.0 5574342726) AC CA IONZ (test code = 3.40 mg/dL 4.50-5.30 L 7226630818) GLUCOSE (test code = 170 mg/dL 70-110 H 2074972780) AC Hematocrit (test 20 See_Comment LL [Automa thuy message] code = 4539733361) The syste m which generated this result transmit thuy reference range : 40 - 54 VOL %. The reference range was not used to interpret this result as normal/abnormal . THB (test code = 6.8 g/dL 13.5-18.0 LL 5761879774) AC TC02 (test code = 23 mmol/L See_Comment [Autom ated message] 5372003097) The system [facility] generated this result transmit thuy reference range : 23-27 mmol/L. T he reference range was not used to interpret this result as normal/abnormal . Lab Interpretation Abnormal (test code = 81184-2) [facility] ACUTE CARE [id number] 19:40:19 Test Item Value Reference Range Interpretation Comments PH (test code = 2) 7.35-7.45 PCO2 (test code = See_Comment [Automat ed message] 7354817115) The system [facility] generated this result transmit thuy reference range : 35 - 45 mmHg. The reference range was not used to interpret this result as normal/abnormal . PO2 (test code = See_Comment H [Automated message] 4516681905) The system [facility] generated this result transmit thuy reference range : 80 - 100 mmHg. The reference range was not used to interpret this result as normal/abnormal . BE (test code = See_Comment [Automated message] 9726601615) The system [facility] generated this result transmit thuy reference range : -3.0 - 3.0 mEq/ L. The reference r jaswinder was not used to interpret this result as normal/abnormal . HCO3 (test code = See_Comment [Automate d message] 0453449044) The system [facility] generated this result transmit thuy reference range : 22 - 26 mEq/L. The reference range was not used to interpret this result as normal/abnormal . %O2HB (test code = 100.0 % 95.0-98.0 H 3513538166) NA (test code = 139 mmol/L 135-145 5127163007) K+ (test code = 4.3 mmol/L 3.5-5.0 7136329577) AC CA IONZ (test code = 3.50 mg/dL 4.50-5.30 L 8743638643) GLUCOSE (test code = 128 mg/dL 70-110 H 5923677612) AC Hematocrit (test See_Comment LL [Automa thuy message] code = 0518585168) The syste m which generated this result transmit thuy reference range : 40 - 54 VOL %. The reference range was not used to interpret this result as normal/abnormal . THB (test code = 6.5 g/dL 13.5-18.0 LL 0186028403) AC TC02 (test code = 25 mmol/L See_Comment [Autom ated message] 7625084037) The system [facility] generated this result transmit thuy reference range : 23-27 mmol/L. T he reference range was not used to interpret this result as normal/abnormal . Lab Interpretation Abnormal (test code = 00058-9) [facility] ACUTE CARE [id number] 19:40:19 Test Item Value Reference Range Interpretation Comments PH (test code = 2) 7.35-7.45 PCO2 (test code = See_Comment [Automat ed message] 1646267854) The system [facility] generated this result transmit thuy reference range : 35 - 45 mmHg. The reference range was not used to interpret this result as normal/abnormal . PO2 (test code = See_Comment H [Automated message] 3927587951) The system [facility] generated this result transmit thuy reference range : 80 - 100 mmHg. The reference range was not used to interpret this result as normal/abnormal . BE (test code = See_Comment [Automated message] 7106164000) The system [facility] generated this result transmit thuy reference range : -3.0 - 3.0 mEq/ L. The reference r jaswinder was not used to interpret this result as normal/abnormal . HCO3 (test code = See_Comment [Automate d message] 7242584499) The system [facility] generated this result transmit thuy reference range : 22 - 26 mEq/L. The reference range was not used to interpret this result as normal/abnormal . %O2HB (test code = 100.0 % 95.0-98.0 H 6197642111) NA (test code = 139 mmol/L 135-145 0595011125) K+ (test code = 4.3 mmol/L 3.5-5.0 2921891164) AC CA IONZ (test code = 3.50 mg/dL 4.50-5.30 L 9445810316) GLUCOSE (test code = 128 mg/dL 70-110 H 1268812300) AC Hematocrit (test See_Comment LL [Automa thuy message] code = 6498831219) The syste m which generated this result transmit thuy reference range : 40 - 54 VOL %. The reference range was not used to interpret this result as normal/abnormal . THB (test code = 6.5 g/dL 13.5-18.0 LL 5897532935) AC TC02 (test code = 25 mmol/L See_Comment [Autom ated message] 1877824811) The system [facility] generated this result transmit thuy reference range : 23-27 mmol/L. T he reference range was not used to interpret this result as normal/abnormal . Lab Interpretation Abnormal (test code = 37069-6) [facility] ACUTE CARE [id number] 19:40:19 Test Item Value Reference Range Interpretation Comments PH (test code = 2) 7.45 7.35-7.45 PCO2 (test code = 35 See_Comment [Automat ed message] 3503761057) The system [facility] generated this result transmit thuy reference range : 35 - 45 mmHg. The reference range was not used to interpret this result as normal/abnormal . PO2 (test code = 218 See_Comment H [Automated message] 0461737868) The system [facility] generated this result transmit thuy reference range : 80 - 100 mmHg. The reference range was not used to interpret this result as normal/abnormal . BE (test code = 0.0 See_Comment [Automated message] 6241593565) The system [facility] generated this result transmit thuy reference range : -3.0 - 3.0 mEq/ L. The reference r jaswinder was not used to interpret this result as normal/abnormal . HCO3 (test code = 24 See_Comment [Automate d message] 4000946406) The system [facility] generated this result transmit thuy reference range : 22 - 26 mEq/L. The reference range was not used to interpret this result as normal/abnormal . %O2HB (test code = 100.0 % 95.0-98.0 H 9714982484) NA (test code = 139 mmol/L 135-145 1735614171) K+ (test code = 4.3 mmol/L 3.5-5.0 2785475216) AC CA IONZ (test code = 3.50 mg/dL 4.50-5.30 L 8954985395) GLUCOSE (test code = 128 mg/dL 70-110 H 6942893555) AC Hematocrit (test 19 See_Comment LL [Automa thuy message] code = 9518701764) The syste m which generated this result transmit thuy reference range : 40 - 54 VOL %. The reference range was not used to interpret this result as normal/abnormal . THB (test code = 6.5 g/dL 13.5-18.0 LL 5303774980) AC TC02 (test code = 25 mmol/L See_Comment [Autom ated message] 4879957713) The system [facility] generated this result transmit thuy reference range : 23-27 mmol/L. T he reference range was not used to interpret this result as normal/abnormal . Lab Interpretation Abnormal (test code = 20744-5) [facility] ACUTE CARE [id number] 19:16:31 Test Item Value Reference Range Interpretation Comments PH (test code = 2) 7.35-7.45 L PCO2 (test code = See_Comment H [Automat ed message] 7009594577) The system [facility] generated this result transmit thuy reference range : 35 - 45 mmHg. The reference range was not used to interpret this result as normal/abnormal . PO2 (test code = See_Comment H [Automated message] 5741125380) The system [facility] generated this result transmit thuy reference range : 80 - 100 mmHg. The reference range was not used to interpret this result as normal/abnormal . BE (test code = See_Comment [Automated message] 0055491533) The system [facility] generated this result transmit thuy reference range : -3.0 - 3.0 mEq/ L. The reference r jaswinder was not used to interpret this result as normal/abnormal . HCO3 (test code = See_Comment [Automate d message] 1639949806) The system [facility] generated this result transmit thuy reference range : 22 - 26 mEq/L. The reference range was not used to interpret this result as normal/abnormal . %O2HB (test code = 100.0 % 95.0-98.0 H 2593045068) NA (test code = 139 mmol/L 135-145 9373836437) K+ (test code = 4.1 mmol/L 3.5-5.0 9636364677) AC CA IONZ (test code = 3.50 mg/dL 4.50-5.30 L 0414254023) GLUCOSE (test code = 77 mg/dL 70-110 4377162610) AC Hematocrit (test See_Comment LL [Automa thuy message] code = 2268865994) The syste m which generated this result transmit thuy reference range : 40 - 54 VOL %. The reference range was not used to interpret this result as normal/abnormal . THB (test code = 6.1 g/dL 13.5-18.0 LL 1458082072) AC TC02 (test code = 27 mmol/L See_Comment [Autom ated message] 7801007334) The system [facility] generated this result transmit thuy reference range : 23-27 mmol/L. T he reference range was not used to interpret this result as normal/abnormal . Lab Interpretation Abnormal (test code = 50040-1) [facility] ACUTE CARE [id number] 19:16:31 Test Item Value Reference Range Interpretation Comments PH (test code = 2) 7.32 7.35-7.45 L PCO2 (test code = 49 See_Comment H [Automat ed message] 8005046065) The system [facility] generated this result transmit thuy reference range : 35 - 45 mmHg. The reference range was not used to interpret this result as normal/abnormal . PO2 (test code = 320 See_Comment H [Automated message] 4220360260) The system [facility] generated this result transmit thuy reference range : 80 - 100 mmHg. The reference range was not used to interpret this result as normal/abnormal . BE (test code = -1.0 See_Comment [Automated message] 3966729521) The system [facility] generated this result transmit thuy reference range : -3.0 - 3.0 mEq/ L. The reference r jaswinder was not used to interpret this result as normal/abnormal . HCO3 (test code = 25 See_Comment [Automate d message] 1528846042) The system [employer] generated this result transmit thuy reference range : 22 - 26 mEq/L. The reference range was not used to interpret this result as normal/abnormal . %O2HB (test code = 100.0 % 95.0-98.0 H 7406486790) NA (test code = 139 mmol/L 135-145 8790717962) K+ (test code = 4.1 mmol/L 3.5-5.0 4003094216) AC CA IONZ (test code = 3.50 mg/dL 4.50-5.30 L 5817896797) GLUCOSE (test code = 77 mg/dL 70-110 6473693721) AC Hematocrit (test 18 See_Comment LL [Automa thuy message] code = 3948298143) The syste m which generated this result transmit thuy reference range : 40 - 54 VOL %. The reference range was not used to interpret this result as normal/abnormal . THB (test code = 6.1 g/dL 13.5-18.0 LL 4400918433) AC TC02 (test code = 27 mmol/L See_Comment [Autom ated message] 2692697331) The system [facility] generated this result transmit thuy reference range : 23-27 mmol/L. T he reference range was not used to interpret this result as normal/abnormal . Lab Interpretation Abnormal (test code = 66867-7) [facility] ACUTE CARE [id number] 19:16:31 Test Item Value Reference Range Interpretation Comments PH (test code = 2) 7.35-7.45 L PCO2 (test code = See_Comment H [Automat ed message] 1355806892) The system [facility] generated this result transmit thuy reference range : 35 - 45 mmHg. The reference range was not used to interpret this result as normal/abnormal . PO2 (test code = See_Comment H [Automated message] 4451141782) The system [facility] generated this result transmit thuy reference range : 80 - 100 mmHg. The reference range was not used to interpret this result as normal/abnormal . BE (test code = See_Comment [Automated message] 0281727124) The system [employer] [facility] generated this result transmit thuy reference range : -3.0 - 3.0 mEq/ L. The reference r jaswinder was not used to interpret this result as normal/abnormal . HCO3 (test code = See_Comment [Automate d message] 9233356988) The system [employer] [facility] generated this result transmit thuy reference range : 22 - 26 mEq/L. The reference range was not used to interpret this result as normal/abnormal . %O2HB (test code = 100.0 % 95.0-98.0 H 5839540382) NA (test code = 139 mmol/L 135-145 4250120877) K+ (test code = 4.1 mmol/L 3.5-5.0 1362414526) AC CA IONZ (test code = 3.50 mg/dL 4.50-5.30 L 5660642581) GLUCOSE (test code = 77 mg/dL 70-110 7031196951) AC Hematocrit (test See_Comment LL [Automa thuy message] code = 5778314612) The syste m which generated this result transmit thuy reference range : 40 - 54 VOL %. The reference range was not used to interpret this result as normal/abnormal . THB (test code = 6.1 g/dL 13.5-18.0 LL 4774045032) AC TC02 (test code = 27 mmol/L See_Comment [Autom ated message] 4152125528) The system [employer] h generated this result transmit thuy reference range : 23-27 mmol/L. T he reference range was not used to interpret this result as normal/abnormal . Lab Interpretation Abnormal (test code = 98346-1) [facility] Packed RBC (in units), 2 Units 2021-01-20 18:06:15 Test Item Value Reference Range Interpretation Comments Cross Match Result Compatible (test code = 4409) ISBT Blood Type Code (test code = 036274) Unit Blood Type (test A Pos code = 4410) Unit Number (test [id number] code = 4411) Blood Expiration Date & Time (test code = 586165) Status Information Issued (test code = 4412) Product Red Blood Cells Identification (test code = 4413) Product Code (test [id number] Performed at [facility] code = 4414) Laboratory Services - [facility] Blood [address] [place] [address]Kpwk Free: [phone] A No. [id number] [facility] Packed RBC (in units), 2 Units 2021-01-20 18:06:15 Test Item Value Reference Range Interpretation Comments Cross Match Result Compatible (test code = 4409) ISBT Blood Type Code 6200 (test code = 717124) Unit Blood Type (test A Pos code = 4410) Unit Number (test [id number] code = 4411) Blood Expiration Date [id number] & Time (test code = 674454) Status Information Issued (test code = 4412) Product Red Blood Cells Identification (test code = 4413) Product Code (test C9217W38 Performed at [facility] code = 4414) Laboratory Services - [facility] Blood [address] [place] [address]Ezfm Free: [phone] A No. [id number] [facility] P[facility] (in units), 2 Units 2021-01-20 18:06:15 Test Item Value Reference Range Interpretation Comments Cross Match Result Compatible (test code = 4409) ISBT Blood Type Code (test code = 808885) Unit Blood Type (test A Pos code = 4410) Unit Number (test [id number] code = 4411) Blood Expiration Date & Time (test code = 880046) Status Information Issued (test code = 4412) Product Red Blood Cells Identification (test code = 4413) Product Code (test S6668M62 Performed at [facility] code = 4414) Laboratory Services - [facility] Blood [address] [place] [address]Oppw Free: [phone] A No. [id number] [facility] [id number] 17:45:13 Test Item Value Reference Range Interpretation Comments PH (test code = 2) 7.40 7.35-7.45 PCO2 (test code = 44 See_Comment [Automat ed message] 1279917635) The system [employer] generated this result transmit thuy reference range : 35 - 45 mmHg. The reference range was not used to interpret this result as normal/abnormal . PO2 (test code = 419 See_Comment H [Automated message] 9432412635) The system [employer] generated this result transmit thuy reference range : 80 - 100 mmHg. The reference range was not used to interpret this result as normal/abnormal . BE (test code = 2.0 See_Comment [Automated message] 5574868837) The system [employer] generated this result transmit thuy reference range : -3.0 - 3.0 mEq/ L. The reference r jaswinder was not used to interpret this result as normal/abnormal . HCO3 (test code = 27 See_Comment H [Automate d message] 3405176030) The system [facility] generated this result transmit thuy reference range : 22 - 26 mEq/L. The reference range was not used to interpret this result as normal/abnormal . %O2HB (test code = 100.0 % 95.0-98.0 H 7318093538) NA (test code = 139 mmol/L 135-145 1043720500) K+ (test code = 4.0 mmol/L 3.5-5.0 8227921369) AC CA IONZ (test code = 4.70 mg/dL 4.50-5.30 8442608672) GLUCOSE (test code = 81 mg/dL 70-110 1989930667) AC Hematocrit (test 26 See_Comment L [Automa thuy message] code = 3694633424) The syste m which generated this result transmit thuy reference range : 40 - 54 VOL %. The reference range was not used to interpret this result as normal/abnormal . THB (test code = 8.8 g/dL 13.5-18.0 L 8819646484) AC TC02 (test code = 29 mmol/L See_Comment H [Autom ated message] 6945066699) The system [facility] generated this result transmit thuy reference range : 23-27 mmol/L. T he reference range was not used to interpret this result as normal/abnormal . Lab Interpretation Abnormal (test code = 69938-7) [facility] ACUTE CARE [id number] 17:45:13 Test Item Value Reference Range Interpretation Comments PH (test code = 2) 7.35-7.45 PCO2 (test code = See_Comment [Automat ed message] 7770810424) The system [facility] generated this result transmit thuy reference range : 35 - 45 mmHg. The reference range was not used to interpret this result as normal/abnormal . PO2 (test code = See_Comment H [Automated message] 2912965867) The system [facility] generated this result transmit thuy reference range : 80 - 100 mmHg. The reference range was not used to interpret this result as normal/abnormal . BE (test code = See_Comment [Automated message] 7961228635) The system [facility] generated this result transmit thuy reference range : -3.0 - 3.0 mEq/ L. The reference r jaswinder was not used to interpret this result as normal/abnormal . HCO3 (test code = See_Comment H [Automate d message] 2071196108) The system [facility] generated this result transmit thuy reference range : 22 - 26 mEq/L. The reference range was not used to interpret this result as normal/abnormal . %O2HB (test code = 100.0 % 95.0-98.0 H 9429042161) NA (test code = 139 mmol/L 135-145 6427743167) K+ (test code = 4.0 mmol/L 3.5-5.0 8875507335) AC CA IONZ (test code = 4.70 mg/dL 4.50-5.30 4433004236) GLUCOSE (test code = 81 mg/dL 70-110 8496274315) AC Hematocrit (test See_Comment L [Automa thuy message] code = 6083406843) The syste m which generated this result transmit thuy reference range : 40 - 54 VOL %. The reference range was not used to interpret this result as normal/abnormal . THB (test code = 8.8 g/dL 13.5-18.0 L 5174520248) AC TC02 (test code = 29 mmol/L See_Comment H [Autom ated message] 1031079955) The system [facility] generated this result transmit thuy reference range : 23-27 mmol/L. T he reference range was not used to interpret this result as normal/abnormal . Lab Interpretation Abnormal (test code = 71109-5) [facility] ACUTE CARE [id number] 17:45:13 Test Item Value Reference Range Interpretation Comments PH (test code = 2) 7.35-7.45 PCO2 (test code = See_Comment [Automat ed message] 4984224007) The system [facility] generated this result transmit thuy reference range : 35 - 45 mmHg. The reference range was not used to interpret this result as normal/abnormal . PO2 (test code = See_Comment H [Automated message] 8029754518) The system [facility] generated this result transmit thuy reference range : 80 - 100 mmHg. The reference range was not used to interpret this result as normal/abnormal . BE (test code = See_Comment [Automated message] 4007753940) The system [facility] generated this result transmit thuy reference range : -3.0 - 3.0 mEq/ L. The reference r jaswinder was not used to interpret this result as normal/abnormal . HCO3 (test code = See_Comment H [Automate d message] 9709782713) The system [facility] generated this result transmit thuy reference range : 22 - 26 mEq/L. The reference range was not used to interpret this result as normal/abnormal . %O2HB (test code = 100.0 % 95.0-98.0 H 0379584755) NA (test code = 139 mmol/L 135-145 1723209304) K+ (test code = 4.0 mmol/L 3.5-5.0 1661858125) AC CA IONZ (test code = 4.70 mg/dL 4.50-5.30 2679280519) GLUCOSE (test code = 81 mg/dL 70-110 9084651357) AC Hematocrit (test See_Comment L [Automa thuy message] code = 7037669292) The syste m which generated this result transmit thuy reference range : 40 - 54 VOL %. The reference range was not used to interpret this result as normal/abnormal . THB (test code = 8.8 g/dL 13.5-18.0 L 9866685791) AC TC02 (test code = 29 mmol/L See_Comment H [Autom ated message] 9680815927) The system [facility] generated this result transmit thuy reference range : 23-27 mmol/L. T he reference range was not used to interpret this result as normal/abnormal . Lab Interpretation Abnormal (test code = 36201-1) [facility] P[facility] RBC (in units), 2 Units 2021-01-20 17:16:28 Test Item Value Reference Range Interpretation Comments Cross Match Result Compatible (test code = 4409) ISBT Blood Type Code 6200 (test code = 928809) Unit Blood Type (test A Pos code = 4410) Unit Number (test [id number] code = 4411) Blood Expiration Date & Time (test code = 611166) Status Information Issued (test code = 4412) Product Red Blood Cells Identification (test code = 4413) Product Code (test M5620I22 Performed at [facility] code = 4414) Laboratory Services - [facility] Blood [address] [place] [address]Bgfl Free: [phone] A No. [id number] [facility] Packed RBC (in units), 2 Units 2021-01-20 17:16:28 Test Item Value Reference Range Interpretation Comments Cross Match Result Compatible (test code = 4409) ISBT Blood Type Code (test code = 734313) Unit Blood Type (test A Pos code = 4410) Unit Number (test [id number] code = 4411) Blood Expiration Date & Time (test code = 713962) Status Information Issued (test code = 4412) Product Red Blood Cells Identification (test code = 4413) Product Code (test R2586Q90 Performed at [facility] code = 4414) Laboratory Services - [facility] Blood [address] s [address]Tlbd Free: [phone] A No. [id number] [facility] Packed RBC (in units), 2 Units 2021-01-20 17:16:28 Test Item Value Reference Range Interpretation Comments Cross Match Result Compatible (test code = 4409) ISBT Blood Type Code (test code = 979842) Unit Blood Type (test A Pos code = 4410) Unit Number (test [id number] code = 4411) Blood Expiration Date & Time (test code = 861143) Status Information Issued (test code = 4412) Product Red Blood Cells Identification (test code = 4413) Product Code (test G9947Y31 Performed at [facility] code = 4414) Laboratory Services - [facility] Blood [address] [place] [address]Blao Free: [phone] A No. [id number] [facility] WITH [id number] 14:22:21 Test Item Value Reference Range Interpretation Comments WBC (test code = 5.38 See_Comment [Automated 6690-2) message] The sy stem which generated this result transmitted reference range : 4.20 - 10.70 10*3/?L. The reference range was not used to interpret this result as normal/abnormal . RBC (test code = 2.86 See_Comment L [Automated 789-8) message] The sy [...] RDW-SD (test code = 46.5 fL 38.5-51.6 85254-2) RDW-CV (test code = 12.8 % 12.1-15.4 788-0) PLT (test code = 245 See_Comment [Automated 777-3) message] The sy stem which generated this result transmitted reference range : 150 - 328 10*3/ ?L. The reference r jaswinder was not used to interpret this result as normal/abnormal . MPV (test code = 9.6 fL 9.8-13.0 L 96338-8) NRBC/100 WBC (test 0.0 See_Comment [Automat ed code = 8663322193) message] The system which generated this result transmitted reference range : 0.0 - 10.0 /100 WBCs. The refer ence range was not u sed to interpret th is result as normal/abnormal . NRBC x10^3 (test code <0.01 See_Comment [Auto mated = 0814930715) message] The s ystem which generated this result transmitted reference range : 10*3/?L. The reference range was not used to interpret this result as normal/abnormal . GRAN MAT (NEUT) % 63.7 % (test code = 770-8) IMM GRAN % (test code 0.40 % = 5823555402) LYMPH % (test code = 27.1 % 736-9) MONO % (test code = 7.2 % 5905-5) EOS % (test code = 0.9 % 713-8) BASO % (test code = 0.7 % 706-2) GRAN MAT x10^3(ANC) 3.42 10*3/uL 1.99-6.95 (test code = 1790846101) IMM GRAN x10^3 (test <0.03 0.00-0.06 code = 0827810730) LYMPH x10^3 (test code 1.46 10*3/uL 1.09-3.23 = 731-0) MONO x10^3 (test code 0.39 10*3/uL 0.36-1.02 = 742-7) EOS x10^3 (test code = 0.05 10*3/uL 0.06-0.53 L 711-2) BASO x10^3 (test code 0.04 10*3/uL 0.01-0.09 = 704-7) Lab Interpretation Abnormal (test code = 61824-3) [facility] WITH [id number] 14:22:21 Test Item Value Reference Range Interpretation Comments WBC (test code = See_Comment [Automated 6690-2) message] The sy stem which generated this result transmitted reference range : 4.20 - 10.70 10*3/?L. The reference range was not used to interpret this result as normal/abnormal . RBC (test code = See_Comment L [Automated 789-8) message] The sy [...] RDW-SD (test code = 46.5 fL 38.5-51.6 89307-4) RDW-CV (test code = 12.8 % 12.1-15.4 788-0) PLT (test code = See_Comment [Automated 777-3) message] The sy stem which generated this result transmitted reference range : 150 - 328 10*3/ ?L. The reference r jaswinder was not used to interpret this result as normal/abnormal . MPV (test code = 9.6 fL 9.8-13.0 L 20764-1) NRBC/100 WBC (test See_Comment [Automat ed code = 9143274637) message] The system which generated this result transmitted reference range : 0.0 - 10.0 /100 WBCs. The refer ence range was not u sed to interpret th is result as normal/abnormal . NRBC x10^3 (test code <0.01 See_Comment [Auto mated = 1947116880) message] The s ystem which generated this result transmitted reference range : 10*3/?L. The reference range was not used to interpret this result as normal/abnormal . GRAN MAT (NEUT) % 63.7 % (test code = 770-8) IMM GRAN % (test code 0.40 % = 8267277417) LYMPH % (test code = 27.1 % 736-9) MONO % (test code = 7.2 % 5905-5) EOS % (test code = 0.9 % 713-8) BASO % (test code = 0.7 % 706-2) GRAN MAT x10^3(ANC) 3.42 10*3/uL 1.99-6.95 (test code = 4605960615) IMM GRAN x10^3 (test <0.03 0.00-0.06 code = 7930300292) LYMPH x10^3 (test code 1.46 10*3/uL 1.09-3.23 = 731-0) MONO x10^3 (test code 0.39 10*3/uL 0.36-1.02 = 742-7) EOS x10^3 (test code = 0.05 10*3/uL 0.06-0.53 L 711-2) BASO x10^3 (test code 0.04 10*3/uL 0.01-0.09 = 704-7) Lab Interpretation Abnormal (test code = 06329-9) [facility] WITH [id number] 14:22:21 Test Item Value Reference Range Interpretation Comments WBC (test code = See_Comment [Automated 6690-2) message] The sy stem which generated this result transmitted reference range : 4.20 - 10.70 10*3/?L. The reference range was not used to interpret this result as normal/abnormal . RBC (test code = See_Comment L [Automated 789-8) message] The sy [...] RDW-SD (test code = 46.5 fL 38.5-51.6 79889-7) RDW-CV (test code = 12.8 % 12.1-15.4 788-0) PLT (test code = See_Comment [Automated 777-3) message] The sy stem which generated this result transmitted reference range : 150 - 328 10*3/ ?L. The reference r jaswinder was not used to interpret this result as normal/abnormal . MPV (test code = 9.6 fL 9.8-13.0 L 16440-4) NRBC/100 WBC (test See_Comment [Automat ed code = 4939627094) message] The system which generated this result transmitted reference range : 0.0 - 10.0 /100 WBCs. The refer ence range was not u sed to interpret th is result as normal/abnormal . NRBC x10^3 (test code <0.01 See_Comment [Auto mated = 2005283332) message] The s ystem which generated this result transmitted reference range : 10*3/?L. The reference range was not used to interpret this result as normal/abnormal . GRAN MAT (NEUT) % 63.7 % (test code = 770-8) IMM GRAN % (test code 0.40 % = 0992151633) LYMPH % (test code = 27.1 % 736-9) MONO % (test code = 7.2 % 5905-5) EOS % (test code = 0.9 % 713-8) BASO % (test code = 0.7 % 706-2) GRAN MAT x10^3(ANC) 3.42 10*3/uL 1.99-6.95 (test code = 5760638411) IMM GRAN x10^3 (test <0.03 0.00-0.06 code = 8772885244) LYMPH x10^3 (test code 1.46 10*3/uL 1.09-3.23 = 731-0) MONO x10^3 (test code 0.39 10*3/uL 0.36-1.02 = 742-7) EOS x10^3 (test code = 0.05 10*3/uL 0.06-0.53 L 711-2) BASO x10^3 (test code 0.04 10*3/uL 0.01-0.09 = 704-7) Lab Interpretation Abnormal (test code = 12715-6) [facility] [id number] 13:57:35 Test Item Value Reference Range Interpretation Comments ABO & RH (test code A Positive Performe d at [place] = 20) Laboratory Serv [facility] Blood [facility] [place] [address]Oioq Free: [phone] A No. [id number] [facility] [id number] 13:57:35 Test Item Value Reference Range Interpretation Comments ABO & RH (test code A Positive Performe d at [facility] = 20) Laboratory Serv [facility] [address] [place] [address] s [address]Feat Free: [phone] A No. [id number] [facility] [id number] 13:57:35 Test Item Value Reference Range Interpretation Comments ABO & RH (test code A Positive Performe d at [facility] = 20) Laboratory Serv [facility] [address] [place], [place] [address]ves[facility] [address]Lbkb Free: [phone] A No. [id number] [facility] 13:36:49 Test Item Value Reference Range Interpretation Comments APPEARANCE (test code = Hazy Clear A 8691433165) COLOR (test code = Yellow Yellow 8422451367) PH (test code = 5.0 4.8-8.0 3033720258) SP GRAVITY (test code = 1.008 1.003-1.030 3765156820) GLU U QUAL (test code = Normal Normal 0103240285) BLOOD (test code = Negative Negative Interfere nce from 0068100672) ascorbic acid m ay cause false neg ative results. KETONES (test code = 5 mg/dL Negative A 6101265738) PROTEIN (test code = Negative Negative 2887-8) UROBILIN (test code = Normal Normal 3494142142) BILIRUBIN (test code = Negative Negative 0743386268) NITRITE (test code = Negative Negative 0716223041) LEUK ALEKSEY (test code = 75/uL Negative A 4534163546) RBC/HPF (test code = 7 See_Comment H [Autom ated message] 7534784192) The system [employer] [facility] generated this result transmitted ref erence range: 0 - 3 HP F. The reference range was not used to int erpret this result as normal/abnormal . WBC/HPF (test code = 5 See_Comment [Autom ated message] 1674893261) The system [facility] generated this result transmitted ref erence range: 0 - 5 HP F. The reference range was not used to int erpret this result as normal/abnormal . BACTERIA (test code = Negative Negative 5180769236) SQ EPITH (test code = <1 See_Comment [Auto mated message] 0574408607) The system [facility] generated this result transmitted ref erence range: <=2 HPF. The reference range was not used to int erpret this result as normal/abnormal . ASCORBIC ACID (test code 20 mg/dL = 7212148675) Lab Interpretation (test Abnormal code = 14071-1) [facility] 13:36:49 Test Item Value Reference Range Interpretation Comments APPEARANCE (test code = Hazy Clear A 2354962709) COLOR (test code = Yellow Yellow 1746112434) PH (test code = 4.8-8.0 4033615700) SP GRAVITY (test code = 1.003-1.030 7287836326) GLU U QUAL (test code = Normal Normal 2038055452) BLOOD (test code = Negative Negative Interfere nce from 7321239308) ascorbic acid m ay cause false neg ative results. KETONES (test code = 5 mg/dL Negative A 8928054776) PROTEIN (test code = Negative Negative 2887-8) UROBILIN (test code = Normal Normal 2820860742) BILIRUBIN (test code = Negative Negative 4850286506) NITRITE (test code = Negative Negative 1324752078) LEUK ALEKSEY (test code = 75/uL Negative A 0513803525) RBC/HPF (test code = See_Comment H [Autom ated message] 1071150304) The system [facility] generated this result transmitted ref erence range: 0 - 3 HP F. The reference range was not used to int erpret this result as normal/abnormal . WBC/HPF (test code = See_Comment [Autom ated message] 8836182655) The system [facility] generated this result transmitted ref erence range: 0 - 5 HP F. The reference range was not used to int erpret this result as normal/abnormal . BACTERIA (test code = Negative Negative 5738432727) SQ EPITH (test code = <1 See_Comment [Auto mated message] 8083633825) The system [facility] generated this result transmitted ref erence range: <=2 HPF. The reference range was not used to int erpret this result as normal/abnormal . ASCORBIC ACID (test code 20 mg/dL = 5300552759) Lab Interpretation (test Abnormal code = 79015-8) [facility] 13:36:49 Test Item Value Reference Range Interpretation Comments APPEARANCE (test code = Hazy Clear A 2234068985) COLOR (test code = Yellow Yellow 0431923863) PH (test code = 4.8-8.0 8638386231) SP GRAVITY (test code = 1.003-1.030 7652118434) GLU U QUAL (test code = Normal Normal 7144070002) BLOOD (test code = Negative Negative Interfere nce from 0405302746) ascorbic acid m ay cause false neg ative results. KETONES (test code = 5 mg/dL Negative A 7734700561) PROTEIN (test code = Negative Negative 2887-8) UROBILIN (test code = Normal Normal 5975326013) BILIRUBIN (test code = Negative Negative 7642521750) NITRITE (test code = Negative Negative 8423730826) LEUK ALEKSEY (test code = 75/uL Negative A 3321155719) RBC/HPF (test code = See_Comment H [Autom ated message] 3675322517) The system [facility] [facility] generated this result transmitted ref erence range: 0 - 3 HP F. The reference range was not used to int erpret this result as normal/abnormal . WBC/HPF (test code = See_Comment [Autom ated message] 1458767791) The system [facility] generated this result transmitted ref erence range: 0 - 5 HP F. The reference range was not used to int erpret this result as normal/abnormal . BACTERIA (test code = Negative Negative 1394200204) SQ EPITH (test code = <1 See_Comment [Auto mated message] 9545886669) The system [facility] [facility] generated this result transmitted ref erence range: <=2 HPF. The reference range was not used to int erpret this result as normal/abnormal . ASCORBIC ACID (test code 20 mg/dL = 7883794112) Lab Interpretation (test Abnormal code = 82960-7) [facility] METABOLIC PANEL (NA, K, CL, CO2, GLUCOSE, BUN, CREATININE, CA)2021-01-20 13:34:51 Test Item Value Reference Range Interpretation Comments NA (test code = 138 mmol/L 135-145 5064361646) K (test code = 4.2 mmol/L 3.5-5.0 7776391473) CL (test code = 104 mmol/L 98-108 7482853231) CO2 TOTAL (test code 26 mmol/L 23-31 = 5252361197) AGAP (test code = 8 2-16 4560164788) BUN (test code = 10 mg/dL 7-23 6455358262) GLUCOSE (test code = 82 mg/dL 70-110 5222497339) CREATININE (test code 0.66 mg/dL 0.60-1.25 = 2474963750) CALCIUM (test code = 9.0 mg/dL 8.6-10.6 5349757582) eGFR (test code = 115.6 mL/min/1.73m2 4628432087) CARLIE (test code = CARLIE) Association of [...] or urine or abnormalities in imaging tests). [facility] METABOLIC PANEL (NA, K, CL, CO2, GLUCOSE, BUN, CREATININE, CA)2021-01-20 13:34:51 Test Item Value Reference Range Interpretation Comments NA (test code = 138 mmol/L 135-145 5431840805) K (test code = 4.2 mmol/L 3.5-5.0 9122417231) CL (test code = 104 mmol/L 98-108 0155601267) CO2 TOTAL (test code 26 mmol/L 23-31 = 4492795675) AGAP (test code = 2-16 7058250347) BUN (test code = 10 mg/dL 7-23 9912612645) GLUCOSE (test code = 82 mg/dL 70-110 2975542685) CREATININE (test code 0.66 mg/dL 0.60-1.25 = 4196480990) CALCIUM (test code = 9.0 mg/dL 8.6-10.6 7594195847) eGFR (test code = mL/min/1.73m2 4864034679) CARLIE (test code = CARLIE) Association of Glomerular Filtration Rate (GFR) and Staging of Kidney Disease* + + +- +| GFR (mL/min/1.73 m2) ?| With Kidney Damage ?| ?Without Kidney Damage+ ------+ ----+ ------+| ?>90 ?| ?Stage one ?| ? Normal ?+ -+ + -+| ?60-89 ?| ?Stage two ?| ? Decreased GFR ? + + +- +| ?30-59 ?| ?Stage three ?| ? Stage three ? + + +- +| ?15-29 ?| ?Stage four ? | ? Stage four ?+ -+ + -+| ?<15 (or dialysis) ? ?| ?Stage five ? | ? Stage five ?+ -+ + -+ *Each stage assumes the associated GFR level has been in effect for at least three months. ?Stages 1 to 5, with or without kidney [...] or urine or abnormalities in imaging tests). [facility] METABOLIC PANEL (NA, K, CL, CO2, GLUCOSE, BUN, CREATININE, [place])2021-01-20 13:34:51 Test Item Value Reference Range Interpretation Comments NA (test code = 138 mmol/L 135-145 4085756704) K (test code = 4.2 mmol/L 3.5-5.0 6359485904) CL (test code = 104 mmol/L 98-108 0170609445) CO2 TOTAL (test code 26 mmol/L 23-31 = 4172690115) AGAP (test code = 2-16 8992774797) BUN (test code = 10 mg/dL 7-23 5930791006) GLUCOSE (test code = 82 mg/dL 70-110 0900379576) CREATININE (test code 0.66 mg/dL 0.60-1.25 = 6892497254) CALCIUM (test code = 9.0 mg/dL 8.6-10.6 0371935142) eGFR (test code = mL/min/1.73m2 7569323221) CARLIE (test code = CARLIE) Association of Glomerular Filtration Rate (GFR) and Staging of Kidney Disease* + + +- +| GFR (mL/min/1.73 m2) ?| With Kidney Damage ?| ?Without Kidney Damage+ ------+ ----+ ------+| ?>90 ?| ?Stage one ?| ? Normal ?+ -+ + -+| ?60-89 ?| ?Stage two ?| ? Decreased GFR ? + + +- +| ?30-59 ?| ?Stage three ?| ? Stage three ? + + +- +| ?15-29 ?| ?Stage four ? | ? Stage four ?+ -+ + -+| ?<15 (or dialysis) ? ?| ?Stage five ? | ? Stage five ?+ -+ + -+ *Each stage assumes the associated GFR level has been in effect for at least three months. ?Stages 1 to 5, with or without kidney [...] or urine or abnormalities in imaging tests). [facility] The Type and Screen expires at midnight on the 3rd day after it was drawn. A current Type and Screen is required when RBCs are requested. For all other blood products, a Type and Scre en performed during the current hospitalizati...2021-01-20 13:02:07 Test Item Value Reference Range Interpretation Comments ABO & RH (test code A POSITIVE Performe d at [facility] = 20) Laboratory Serv [facility] Blood [facility] [place] [id number] Free: [phone] A No. [id number] IAT (test code = Negative Performed a t [facility] 1185) Laboratory [facility] [address] [place] [address] s [id number] Free: [phone] A No. [id number] [facility] - The Type and Screen expires at midnight on the 3rd day after it was drawn. A current Type and Screen is required when RBCs are requested. For all other blood products, a Type and Scre en performed during the current hospitalizati...2021-01-20 13:02:07 Test Item Value Reference Range Interpretation Comments ABO & RH (test code A POSITIVE Performe d at [facility] = 20) Laboratory [facility] [address] s [id number] Free: [phone] A No. [id number] IAT (test code = Negative Performed a t [facility] 1185) Laboratory [facility] [address] [place] [address] s [id number] Free: [phone] A No. [id number] [facility] - The Type and Screen expires at midnight on the 3rd day after it was drawn. A current Type and Screen is required when RBCs are requested. For all other blood products, a Type and Scre en performed during the current hospitalizati...2021-01-20 13:02:07 Test Item Value Reference Range Interpretation Comments ABO & RH (test code A POSITIVE Performe d at [facility] = 20) Laboratory [facility] [address] [place] [address] s [id number] Free: [phone] A No. [id number] IAT (test code = Negative Performed a t [facility] 1185) Laboratory [facility] [place] [address] s [id number] Free: [phone] A No. [id number] [facility]cosPROTHROMBIN TIME / [id number] 13:00:24 Test Item Value Reference Range Interpretation Comments PROTIME PATIENT (test 11.1 See_Comment [Auto mated message] code = 5964-2) The system [facility] generated this result transmitted ref erence range: 10.1 - 1 2.6 Seconds. The re ference range was not u sed to interpret this result as normal/abnor mal. INR (test code = 6301-6) 1.0 Nor mal INR <1.1; Warfarin Therap eutic range 2.0 to 3. 0 or 2.5 to 3.5, dep ending upon the indica tions. Lab Interpretation (test Normal code = 60894-9) [facility]HROM[facility] / [id number] 13:00:24 Test Item Value Reference Range Interpretation Comments PROTIME PATIENT (test See_Comment [Auto mated message] code = 5964-2) The system [facility] generated this result transmitted ref erence range: 10.1 - 1 2.6 Seconds. The re ference range was not u sed to interpret this result as normal/abnor mal. INR (test code = 6301-6) Nor mal INR <1.1; Warfarin Therap eutic range 2.0 to 3. 0 or 2.5 to 3.5, dep ending upon the indica tions. Lab Interpretation (test Normal code = 32469-6) [facility]HR[facility] / [id number] 13:00:24 Test Item Value Reference Range Interpretation Comments PROTIME PATIENT (test See_Comment [Auto mated message] code = 5964-2) The system [facility] generated this result transmitted ref erence range: 10.1 - 1 2.6 Seconds. The re ference range was not u sed to interpret this result as normal/abnor mal. INR (test code = 6301-6) Nor mal INR <1.1; Warfarin Therap eutic range 2.0 to 3. 0 or 2.5 to 3.5, dep ending upon the indica tions. Lab Interpretation (test Normal code = 33335-3) [facility]CB WITHOUT [id number] 13:49:30 Test Item Value Reference Range Interpretation Comments WBC (test code = 6690-2) See_Comment [A utomated message] The system [facility] generated this result transmit thuy reference range : 4.20 - 10.70 10*3/?L. The reference range was not used to interpret this result as normal/abnormal . RBC (test code = 789-8) See_Comment L [Au tomated message] The system [facility] generated this result transmit thuy reference range : 4.26 - 5.52 10* 6/?L. The reference r jaswinder was not used to interpret this result as normal/abnormal . HGB (test code = 718-7) 8.3 g/dL 12.2-16.4 L HCT (test code = 4544-3) 25.2 % 38.4-49.3 L MCH (test code = 785-6) 33.2 pg 26.1-32.7 H MCV (test code = 787-2) 100.8 fL 81.7-95.6 H MCHC (test code = 786-4) 32.9 g/dL 31.2-35.0 PLT (test code = 777-3) See_Comment [Au tomated message] The system [facility] generated this result transmit thuy reference range : 150 - 328 10*3/?L. The reference range was not used to interpret this result as normal/abnormal . MPV (test code = 9.2 fL 9.8-13.0 L 53512-8) RDW-CV (test code = 13.6 % 12.1-15.4 788-0) RDW-SD (test code = 50.2 fL 38.5-51.6 36157-4) NRBC x10^3 (test code = See_Comment [Au tomated message] 3232299442) The system [facility] generated this result transmit thuy reference range : 10*3/?L. The reference range was not used to interpret this result as normal/abnormal . NRBC/100 WBC (test code See_Comment [Au tomated message] = 6506867258) The system [facility] generated this result transmit htuy reference range : 0.0 - 10.0 /100 WBC s. The reference r jaswinder was not used to interpret this result as normal/abnormal . IPF % (test code = 9773177118) Lab Interpretation (test Abnormal code = 39695-8) [facility] WITHOUT [id number] 13:49:30 Test Item Value Reference Range Interpretation Comments WBC (test code = 6690-2) See_Comment [A utomated message] The system [facility] generated this result transmit thuy reference range : 4.20 - 10.70 10*3/?L. The reference range was not used to interpret this result as normal/abnormal . RBC (test code = 789-8) See_Comment L [Au tomated message] The system [facility] generated this result transmit thuy reference range : 4.26 - 5.52 10* 6/?L. The reference r jaswinder was not used to interpret this result as normal/abnormal . HGB (test code = 718-7) 8.3 g/dL 12.2-16.4 L HCT (test code = 4544-3) 25.2 % 38.4-49.3 L MCH (test code = 785-6) 33.2 pg 26.1-32.7 H MCV (test code = 787-2) 100.8 fL 81.7-95.6 H MCHC (test code = 786-4) 32.9 g/dL 31.2-35.0 PLT (test code = 777-3) See_Comment [Au tomated message] The system [facility] generated this result transmit thuy reference range : 150 - 328 10*3/?L. The reference range was not used to interpret this result as normal/abnormal . MPV (test code = 9.2 fL 9.8-13.0 L 81393-6) RDW-CV (test code = 13.6 % 12.1-15.4 788-0) RDW-SD (test code = 50.2 fL 38.5-51.6 48229-0) NRBC x10^3 (test code = See_Comment [Au tomated message] 3892639932) The system [facility] generated this result transmit thuy reference range : 10*3/?L. The reference range was not used to interpret this result as normal/abnormal . NRBC/100 WBC (test code See_Comment [Au tomated message] = 5845029278) The system [facility] generated this result transmit thuy reference range : 0.0 - 10.0 /100 WBC s. The reference r jaswinder was not used to interpret this result as normal/abnormal . IPF % (test code = 9926426450) Lab Interpretation (test Abnormal code = 58086-9) [facility]2021-04-17 11:01:36 Test Item Value Reference Range Interpretation Comments MAGNESIUM (test code = 8699173032) 2.0 mg/dL 1.7-2.4 Lab Interpretation (test code = Normal 40423-1) [facility] (NA, K, CL, CO2, GLUCOSE, BUN, CREATININE, [place])2021-01-09 11:01:36 Test Item Value Reference Range Interpretation Comments NA (test code = 136 mmol/L 135-145 3985635051) K (test code = 4.4 mmol/L 3.5-5.0 Slight 6111107640) hemolysis CL (test code = 108 mmol/L 98-108 7787020608) CO2 TOTAL (test code 23 mmol/L 23-31 = 8928232470) AGAP (test code = 2-16 5144794739) BUN (test code = 11 mg/dL 7-23 Slight 7242755360) hemolysis GLUCOSE (test code = 97 mg/dL 70-110 5217465747) CREATININE (test code 0.63 mg/dL 0.60-1.25 = 4416801139) CALCIUM (test code = 8.4 mg/dL 8.6-10.6 L 0311646951) eGFR (test code = mL/min/1.73m2 8380151413) CARLIE (test code = CARLIE) Association of Glomerular Filtration Rate (GFR) and Staging of Kidney Disease* + -----+ --------+ +| GFR (mL/min/1.73 m2) ?| With Kidney Damage ?| ?Without Kidney Damage+ +------- +---- --+| ?>90 ?| ?Stage one ?| ? Normal ?+ ------+ ---------+--------- +| ?60-89 ?| ?Stage two ?| ? Decreased GFR ? + -----+ --------+ +| ?30-59 ?| ?Stage three ?| ? Stage three ? + -----+ --------+ +| ?15-29 ?| ?Stage four ? | ? Stage four ?+ ------+ ---------+--------- +| ?<15 (or dialysis) ? ?| ?Stage five ? | ? Stage five ?+ ------+ ---------+--------- + *Each stage assumes the associated GFR level has been in effect for at least three months. ?Stages 1 to 5, with or without kidney [...] tests). Lab Interpretation Abnormal (test code = 83988-3) [facility] METABOLIC PANEL (NA, K, CL, CO2, GLUCOSE, BUN, CREATININE, [place])2021-01-09 11:01:36 Test Item Value Reference Range Interpretation Comments NA (test code = 136 mmol/L 135-145 2789814107) K (test code = 4.4 mmol/L 3.5-5.0 Slight 1832342330) hemolysis CL (test code = 108 mmol/L 98-108 2898533350) CO2 TOTAL (test code 23 mmol/L 23-31 = 3922249323) AGAP (test code = 2-16 3119814241) BUN (test code = 11 mg/dL 7-23 Slight 7042816525) hemolysis GLUCOSE (test code = 97 mg/dL 70-110 0445645332) CREATININE (test code 0.63 mg/dL 0.60-1.25 = 3962380129) CALCIUM (test code = 8.4 mg/dL 8.6-10.6 L 3221148463) eGFR (test code = mL/min/1.73m2 0028370947) CARLIE (test code = CARLIE) Association of Glomerular Filtration Rate (GFR) and Staging of Kidney Disease* + -----+ --------+ +| GFR (mL/min/1.73 m2) ?| With Kidney Damage ?| ?Without Kidney Damage+ +------- +---- --+| ?>90 ?| ?Stage one ?| ? Normal ?+ ------+ ---------+--------- +| ?60-89 ?| ?Stage two ?| ? Decreased GFR ? + -----+ --------+ +| ?30-59 ?| ?Stage three ?| ? Stage three ? + -----+ --------+ +| ?15-29 ?| ?Stage four ? | ? Stage four ?+ ------+ ---------+--------- +| ?<15 (or dialysis) ? ?| ?Stage five ? | ? Stage five ?+ ------+ ---------+--------- + *Each stage assumes the associated GFR level has been in effect for at least three months. ?Stages 1 to 5, with or without kidney [...] tests). Lab Interpretation Abnormal (test code = 22370-1) [facility]2021-[facility]-17 11:01:36 Test Item Value Reference Range Interpretation Comments MAGNESIUM (test code = 1760610159) 2.0 mg/dL 1.7-2.4 Lab Interpretation (test code = Normal 15824-1) [facility] WITH [id number] 10:24:09 Test Item Value Reference Range Interpretation Comments WBC (test code = See_Comment [Automated 6690-2) message] The sy stem which generated this result transmitted reference range : 4.20 - 10.70 10*3/?L. The reference range was not used to interpret this result as normal/abnormal . RBC (test code = See_Comment L [Automated 209-8) message] The sy stem which generated this result transmitted reference range : 4.26 - 5.52 10*6/?L. The reference range was not used to interpret this result as normal/abnormal . HGB (test code = 7.8 g/dL 12.2-16.4 L 718-7) HCT (test code = 24.0 % 38.4-49.3 L 4544-3) MCV (test code = 100.4 fL 81.7-95.6 H 787-2) MCH (test code = 32.6 pg 26.1-32.7 785-6) MCHC (test code = 32.5 g/dL 31.2-35.0 786-4) RDW-SD (test code = 50.4 fL 38.5-51.6 26319-0) RDW-CV (test code = 13.9 % 12.1-15.4 788-0) PLT (test code = See_Comment [Automated 777-3) message] The sy stem which generated this result transmitted reference range : 150 - 328 10*3/ ?L. The reference r jaswinder was not used to interpret this result as normal/abnormal . MPV (test code = 9.2 fL 9.8-13.0 L 68494-5) NRBC/100 WBC (test See_Comment [Automat ed code = 3734074265) message] The system which generated this result transmitted reference range : 0.0 - 10.0 /100 WBCs. The refer ence range was not u sed to interpret th is result as normal/abnormal . NRBC x10^3 (test code See_Comment [Auto mated = 4165330252) message] The s ystem which generated this result transmitted reference range : 10*3/?L. The reference range was not used to interpret this result as normal/abnormal . GRAN MAT (NEUT) % 61.8 % (test code = 770-8) IMM GRAN % (test code 0.40 % = 0329995305) LYMPH % (test code = 25.0 % 736-9) MONO % (test code = 10.3 % 5905-5) EOS % (test code = 1.9 % 713-8) BASO % (test code = 0.6 % 706-2) GRAN MAT x10^3(ANC) 4.32 10*3/uL 1.99-6.95 (test code = 1493908203) IMM GRAN x10^3 (test 0.03 10*3/uL 0.00-0.06 code = 8770533465) LYMPH x10^3 (test code 1.75 10*3/uL 1.09-3.23 = 731-0) MONO x10^3 (test code 0.72 10*3/uL 0.36-1.02 = 742-7) EOS x10^3 (test code = 0.13 10*3/uL 0.06-0.53 711-2) BASO x10^3 (test code 0.04 10*3/uL 0.01-0.09 = 704-7) Lab Interpretation Abnormal (test code = 97601-3) [facility] WITH [id number] 10:24:09 Test Item Value Reference Range Interpretation Comments WBC (test code = See_Comment [Automated 6690-2) message] The sy stem which generated this result transmitted reference range : 4.20 - 10.70 10*3/?L. The reference range was not used to interpret this result as normal/abnormal . RBC (test code = See_Comment L [Automated 789-8) message] The sy stem which generated this result transmitted reference range : 4.26 - 5.52 10*6/?L. The reference range was not used to interpret this result as normal/abnormal . HGB (test code = 7.8 g/dL 12.2-16.4 L 718-7) HCT (test code = 24.0 % 38.4-49.3 L 4544-3) MCV (test code = 100.4 fL 81.7-95.6 H 787-2) MCH (test code = 32.6 pg 26.1-32.7 785-6) MCHC (test code = 32.5 g/dL 31.2-35.0 786-4) RDW-SD (test code = 50.4 fL 38.5-51.6 31340-1) RDW-CV (test code = 13.9 % 12.1-15.4 788-0) PLT (test code = See_Comment [Automated 777-3) message] The sy stem which generated this result transmitted reference range : 150 - 328 10*3/ ?L. The reference r jaswinder was not used to interpret this result as normal/abnormal . MPV (test code = 9.2 fL 9.8-13.0 L 00053-8) NRBC/100 WBC (test See_Comment [Automat ed code = 0038110398) message] The system which generated this result transmitted reference range : 0.0 - 10.0 /100 WBCs. The refer ence range was not u sed to interpret th is result as normal/abnormal . NRBC x10^3 (test code See_Comment [Auto mated = 8894686655) message] The s ystem which generated this result transmitted reference range : 10*3/?L. The reference range was not used to interpret this result as normal/abnormal . GRAN MAT (NEUT) % 61.8 % (test code = 770-8) IMM GRAN % (test code 0.40 % = 5593692244) LYMPH % (test code = 25.0 % 736-9) MONO % (test code = 10.3 % 5905-5) EOS % (test code = 1.9 % 713-8) BASO % (test code = 0.6 % 706-2) GRAN MAT x10^3(ANC) 4.32 10*3/uL 1.99-6.95 (test code = 7602977811) IMM GRAN x10^3 (test 0.03 10*3/uL 0.00-0.06 code = 7043301471) LYMPH x10^3 (test code 1.75 10*3/uL 1.09-3.23 = 731-0) MONO x10^3 (test code 0.72 10*3/uL 0.36-1.02 = 742-7) EOS x10^3 (test code = 0.13 10*3/uL 0.06-0.53 711-2) BASO x10^3 (test code 0.04 10*3/uL 0.01-0.09 = 704-7) Lab Interpretation Abnormal (test code = 99073-7) [facility]21[facility] 11:17:16 Test Item Value Reference Range Interpretation Comments MAGNESIUM (test code = 9183751245) 2.0 mg/dL 1.7-2.4 Lab Interpretation (test code = Normal 62477-7) [facility] (NA, K, CL, CO2, GLUCOSE, BUN, CREATININE, [place])2021-01-08 11:17:16 Test Item Value Reference Range Interpretation Comments NA (test code = 140 mmol/L 135-145 8297319420) K (test code = 4.1 mmol/L 3.5-5.0 6935759010) CL (test code = 109 mmol/L 98-108 H 9894565056) CO2 TOTAL (test code = 23 mmol/L 23-31 9705767335) AGAP (test code = 2-16 6687616098) BUN (test code = 9 mg/dL 7-23 4766357062) GLUCOSE (test code = 89 mg/dL 70-110 5927015709) CREATININE (test code = 0.62 mg/dL 0.60-1.25 1651614655) CALCIUM (test code = 8.6 mg/dL 8.6-10.6 6008289905) eGFR (test code = mL/min/1.73m2 5192479404) CARLIE (test code = CARLIE) Association of Glomerular Filtration Rate (GFR) and Staging of Kidney Disease* + --+ --+ ------+| GFR (mL/min/1.73 m2) ?| With Kidney Damage ?| ?Without Kidney Damage+ --------+ --------+ +| ?>90 ?| ?Stage one ?| ? Normal ?+ ---+ ---+ -------+| ?60-89 ?| ?Stage two ?| ? Decreased GFR ? + --+ --+ ------+| ?30-59 ?| ?Stage three ?| ? Stage three ? + --+ --+ ------+| ?15-29 ?| ?Stage four ? | ? Stage four ?+ ---+ ---+ -------+| ?<15 (or dialysis) ? ?| ?Stage five ? | ? Stage five ?+ ---+ ---+ -------+ *Each stage assumes the associated GFR level has been in effect for at least three months. ?Stages 1 to 5, with or without kidney [...] tests). Lab Interpretation Abnormal (test code = 10975-4) [facility] 11:17:16 Test Item Value Reference Range Interpretation Comments MAGNESIUM (test code = 7228913213) 2.0 mg/dL 1.7-2.4 Lab Interpretation (test code = Normal 50795-1) [facility] METABOLIC PANEL (NA, K, CL, CO2, GLUCOSE, BUN, CREATININE, [place])2021-01-08 11:17:16 Test Item Value Reference Range Interpretation Comments NA (test code = 140 mmol/L 135-145 2538867028) K (test code = 4.1 mmol/L 3.5-5.0 5226409846) CL (test code = 109 mmol/L 98-108 H 4180244495) CO2 TOTAL (test code = 23 mmol/L 23-31 3112488269) AGAP (test code = 2-16 8593021504) BUN (test code = 9 mg/dL 7-23 5022501723) GLUCOSE (test code = 89 mg/dL 70-110 7464030580) CREATININE (test code = 0.62 mg/dL 0.60-1.25 3792516028) CALCIUM (test code = 8.6 mg/dL 8.6-10.6 9422732110) eGFR (test code = mL/min/1.73m2 8108002725) CARLIE (test code = CARLIE) Association of Glomerular Filtration Rate (GFR) and Staging of Kidney Disease* + --+ --+ ------+| GFR (mL/min/1.73 m2) ?| With Kidney Damage ?| ?Without Kidney Damage+ --------+ --------+ +| ?>90 ?| ?Stage one ?| ? Normal ?+ ---+ ---+ -------+| ?60-89 ?| ?Stage two ?| ? Decreased GFR ? + --+ --+ ------+| ?30-59 ?| ?Stage three ?| ? Stage three ? + --+ --+ ------+| ?15-29 ?| ?Stage four ? | ? Stage four ?+ ---+ ---+ -------+| ?<15 (or dialysis) ? ?| ?Stage five ? | ? Stage five ?+ ---+ ---+ -------+ *Each stage assumes the associated GFR level has been in effect for at least three months. ?Stages 1 to 5, with or without kidney [...] tests). Lab Interpretation Abnormal (test code = 58072-8) [facility] WITHOUT [id number] 10:48:09 Test Item Value Reference Range Interpretation Comments WBC (test code = 6690-2) See_Comment [A utomated message] The system [facility] generated this result transmit thuy reference range : 4.20 - 10.70 10*3/?L. The reference range was not used to interpret this result as normal/abnormal . RBC (test code = 789-8) See_Comment L [Au tomated message] The system [facility] generated this result transmit thuy reference range : 4.26 - 5.52 10* 6/?L. The reference r jaswinder was not used to interpret this result as normal/abnormal . HGB (test code = 718-7) 9.0 g/dL 12.2-16.4 L HCT (test code = 4544-3) 27.7 % 38.4-49.3 L MCH (test code = 785-6) 32.4 pg 26.1-32.7 MCV (test code = 787-2) 99.6 fL 81.7-95.6 H MCHC (test code = 786-4) 32.5 g/dL 31.2-35.0 PLT (test code = 777-3) See_Comment [Au tomated message] The system [facility] generated this result transmit thuy reference range : 150 - 328 10*3/?L. The reference range was not used to interpret this result as normal/abnormal . MPV (test code = 9.2 fL 9.8-13.0 L 70316-6) RDW-CV (test code = 13.6 % 12.1-15.4 788-0) RDW-SD (test code = 49.4 fL 38.5-51.6 65302-1) NRBC x10^3 (test code = <0.01 See_Comment [Au tomated message] 1598624650) The system [facility] generated this result transmit thuy reference range : 10*3/?L. The reference range was not used to interpret this result as normal/abnormal . NRBC/100 WBC (test code See_Comment [Au tomated message] = 8921448466) [facility] this result transmit thuy reference range : 0.0 - 10.0 /100 WBC s. The reference r jaswinder was not used to interpret this result as normal/abnormal . IPF % (test code = 2125288175) Lab Interpretation (test Abnormal code = 56137-5) [facility] WITHOUT [id number] 10:48:09 Test Item Value Reference Range Interpretation Comments WBC (test code = 6690-2) See_Comment [A utomated message] The system [employer] generated this result transmit thuy reference range : 4.20 - 10.70 10*3/?L. The reference range was not used to interpret this result as normal/abnormal . RBC (test code = 789-8) See_Comment L [Au tomated message] The system [facility] generated this result transmit thuy reference range : 4.26 - 5.52 10* 6/?L. The reference r jaswinder was not used to interpret this result as normal/abnormal . HGB (test code = 718-7) 9.0 g/dL 12.2-16.4 L HCT (test code = 4544-3) 27.7 % 38.4-49.3 L MCH (test code = 785-6) 32.4 pg 26.1-32.7 MCV (test code = 787-2) 99.6 fL 81.7-95.6 H MCHC (test code = 786-4) 32.5 g/dL 31.2-35.0 PLT (test code = 777-3) See_Comment [Au tomated message] The system [facility] generated this result transmit thuy reference range : 150 - 328 10*3/?L. The reference range was not used to interpret this result as normal/abnormal . MPV (test code = 9.2 fL 9.8-13.0 L 66070-5) RDW-CV (test code = 13.6 % 12.1-15.4 788-0) RDW-SD (test code = 49.4 fL 38.5-51.6 27600-5) NRBC x10^3 (test code = <0.01 See_Comment [Au tomated message] 4118865294) The system [facility] generated this result transmit thuy reference range : 10*3/?L. The reference range was not used to interpret this result as normal/abnormal . NRBC/100 WBC (test code See_Comment [Au tomated message] = 5840200251) The system [employer] [facility] generated this result transmit thuy reference range : 0.0 - 10.0 /100 WBC s. The reference r jaswinder was not used to interpret this result as normal/abnormal . IPF % (test code = 1942642601) Lab Interpretation (test Abnormal code = 94054-5) [place] [id number] 20:38:47 Test Item Value Reference Range Interpretation Comments APTT Patient (test code See_Comment H [Au tomated message] = 3173-2) The system [employer] generated this result transmitted ref erence range: 26 - 36 Seconds. The reference range was not used to int erpret this result as normal/abnormal . Lab Interpretation (test Abnormal code = 63750-6) [place] [id number] 20:38:47 Test Item Value Reference Range Interpretation Comments APTT Patient (test code See_Comment H [Au tomated message] = 3173-2) The system [employer] generated this result transmitted ref erence range: 26 - 36 Seconds. The reference range was not used to int erpret this result as normal/abnormal . Lab Interpretation (test Abnormal code = 87309-1) [facility] CONSULT [id number] 17:24:42 LEUKOCYTES ADEQUATE IN NUMBER AND MORPHOLOGY. NO BLASTS IDENTIFIED. NO GRANULOCYTIC DYSPLASIA IDENTIFIED. 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 RECOMMEND EGD/COLONOSCOP Y TO RULE OUT GI SOURCE OF BLEEDING. PLATELETS ADEQUATE IN NUMBER AND MORPHOLOGY WITH OCCASIONAL LARGE FORMS. ?[facility] CONSULT [id number] 17:24:42LEUKOCYTES ADEQUATE IN NUMBER AND MORPHOLOGY. NO BLASTS IDENTIFIED. NO GRANULOCYTIC DYSPLASIA IDENTIFIED. 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 RECOMMEND EGD/COLONOSCOPY TO RULE OUT GI SOURCE OF BLEEDING. PLATELETS ADEQUATE IN NUMBER AND MORPHOLOGY WITH OCCASIONAL LARGE FORMS. ?[facility] METABOLIC PANEL (NA, K, CL, CO2, GLUCOSE, BUN, CREATININE, CA)2021-01-07 12:51:59 Test Item Value Reference Range Interpretation Comments NA (test code = 137 mmol/L 135-145 6203457006) K (test code = 3.9 mmol/L 3.5-5.0 7801428809) CL (test code = 108 mmol/L 98-108 0085857868) CO2 TOTAL (test code = 26 mmol/L 23-31 5343980017) AGAP (test code = 2-16 8845084100) BUN (test code = 6 mg/dL 7-23 L 4069736155) GLUCOSE (test code = 75 mg/dL 70-110 4706395997) CREATININE (test code = 0.61 mg/dL 0.60-1.25 3671923463) CALCIUM (test code = 8.6 mg/dL 8.6-10.6 7832946809) eGFR (test code = mL/min/1.73m2 5278572596) CARLIE (test code = CARLIE) Association of Glomerular Filtration Rate (GFR) and Staging of Kidney Disease* + --+ --+ ------+| GFR (mL/min/1.73 m2) ?| With Kidney Damage ?| ?Without Kidney Damage+ --------+ --------+ +| ?>90 ?| ?Stage one ?| ? Normal ?+ ---+ ---+ -------+| ?60-89 ?| ?Stage two ?| ? Decreased GFR ? + --+ --+ ------+| ?30-59 ?| ?Stage three ?| ? Stage three ? + --+ --+ ------+| ?15-29 ?| ?Stage four ? | ? Stage four ?+ ---+ ---+ -------+| ?<15 (or dialysis) ? ?| ?Stage five ? | ? Stage five ?+ ---+ ---+ -------+ *Each stage assumes the associated GFR level has been in effect for at least three months. ?Stages 1 to 5, with or without kidney [...] tests). Lab Interpretation Abnormal (test code = 27678-6) [facility] 12:51:59 Test Item Value Reference Range Interpretation Comments MAGNESIUM (test code = 5123015464) 2.0 mg/dL 1.7-2.4 Lab Interpretation (test code = Normal 88388-1) [facility] (NA, K, CL, CO2, GLUCOSE, BUN, CREATININE, CA)2021-01-07 12:51:59 Test Item Value Reference Range Interpretation Comments NA (test code = 137 mmol/L 135-145 2031590129) K (test code = 3.9 mmol/L 3.5-5.0 2810356383) CL (test code = 108 mmol/L 98-108 4267059930) CO2 TOTAL (test code = 26 mmol/L 23-31 0798990674) AGAP (test code = 2-16 2167161942) BUN (test code = 6 mg/dL 7-23 L 3991864815) GLUCOSE (test code = 75 mg/dL 70-110 9050629396) CREATININE (test code = 0.61 mg/dL 0.60-1.25 8733566862) CALCIUM (test code = 8.6 mg/dL 8.6-10.6 8373401111) eGFR (test code = mL/min/1.73m2 6483761723) CARLIE (test code = CARLEI) Association of Glomerular Filtration Rate (GFR) and Staging of Kidney Disease* + --+ --+ ------+| GFR (mL/min/1.73 m2) ?| With Kidney Damage ?| ?Without Kidney Damage+ --------+ --------+ +| ?>90 ?| ?Stage one ?| ? Normal ?+ ---+ ---+ -------+| ?60-89 ?| ?Stage two ?| ? Decreased GFR ? + --+ --+ ------+| ?30-59 ?| ?Stage three ?| ? Stage three ? + --+ --+ ------+| ?15-29 ?| ?Stage four ? | ? Stage four ?+ ---+ ---+ -------+| ?<15 (or dialysis) ? ?| ?Stage five ? | ? Stage five ?+ ---+ ---+ -------+ *Each stage assumes the associated GFR level has been in effect for at least three months. ?Stages 1 to 5, with or without kidney [...] tests). Lab Interpretation Abnormal (test code = 92740-3) [facility]21[facility]15 12:51:59 Test Item Value Reference Range Interpretation Comments MAGNESIUM (test code = 7233176903) 2.0 mg/dL 1.7-2.4 Lab Interpretation (test code = Normal 57210-7) [facility] COVID [id number] 12:43:18COVID DMT InterpretationInterpretation/Recommendations: Molecular NAAT Tests for Active Infection with the SARS-CoV-2 Virus: The patient has currently tested negative for the SARS-CoV-2 virus that causes COVID-19 illness. This most likely indicates that the patient does not have an active infection with the SARS-CoV-2 virus. However, infection is not completely ruled out as the false negative rate for molecular NAAT testing using a nasopharyngeal sample can be up to 30%, mostly dependent on the timing of sample collection in relation to illness onset and any deficiencies in sampling techniques. If the patient has symptoms concerning for COVID-19 illness, a repeat NAAT test (PCR, Rapid ID Now, etc.) should be performed, at which time the SARS-CoV-2 virus - if present - may have reached a detectable viral load (usually peaking by the end of the first week of symptoms). Tests for IgM and/or IgGAntibodies to the SARS-CoV-2 Virus: If the patient develops COVID-19 illness in the future, testingfor IgM and IgG antibodies approximately 3 weeks after illness onset will likely indicate if the patient has produced antibodies to the SARS-CoV-2 virus. However, some patients may take longer to develop detectable antibodies, while some patients who were infected with SARS-CoV-2 may never develop antibodies. While antibodies to SARS-CoV-2 may provide some degree of immunity, at this time the strength and duration of the antibody response is unknown. Interpretation Result Comments:These interpretation comments are based upon all COVID-19 testing the patient has had at [facility], including molecular NAAT testing (more commonly known as PCR testing and Rapid ID Now testing) and antibody testing. It does not take into account any testing that a patient has had outside of the [facility] medical record. [facility] LABORATORY SERVICESCOVID Resul [id number] Rapid ID NOW (no units) ? ? Date ? Value ? 01/05/2021 ? Not Detected ? [facility] LABORATORY SERVICES [facility] COVID [id number] 12:43:18COVID DMT InterpretationInterpretation/Recommendations: Molecular NAAT Tests for Active Infection with the SARS-CoV-2 Virus: The patient has currently tested negative for the SARS-CoV-2 virus that causes COVID-19 illness. This most likely indicates that the patient does not have an active infection with the SARS-CoV-2 virus. However, infection is not completely ruled out as the false negative rate for molecular NAAT testing using a nasopharyngeal sample can be up to 30%, mostly dependent on the timing of sample collection in relation to illness onset and any deficiencies in sampling techniques. If the patient has symptoms concerning for COVID-19 illness, a repeat NAAT test (PCR, Rapid ID Now, etc.) should be performed, at which time the SARS-CoV-2 virus - if present - may have reached a detectable viral load (usually peaking by the end of the first week of symptoms). Tests for IgM and/or IgGAntibodies to the SARS-CoV-2 Virus: If the patient develops COVID-19 illness in the future, testingfor IgM and IgG antibodies approximately 3 weeks after illness onset will likely indicate if the patient has produced antibodies to the SARS-CoV-2 virus. However, some patients may take longer to develop detectable antibodies, while some patients who were infected with SARS-CoV-2 may never develop antibodies. While antibodies to SARS-CoV-2 may provide some degree of immunity, at this time the strength and duration of the antibody response is unknown. Interpretation Result Comments:These interpretation comments are based upon all COVID-19 testing the patient has had at [facility], including molecular NAAT testing (more commonly known as PCR testing and Rapid ID Now testing) and antibody testing. It does not take into account any testing that a patient has had outside of the [facility] medical record. [facility] LABORATORY SERVICESCOVID Resul [id number] Rapid ID NOW (no units) ? ? Date ? Value ? 01/05/2021 ? Not Detected ? [facility] LABORATORY SERVICES [facility]2021-[facility]-15 12:04:31 Test Item Value Reference Range Interpretation Comments APTT Patient (test code See_Comment H [Au tomated message] = 3173-2) The system [employer] generated this result transmitted ref erence range: 26 - 36 Seconds. The reference range was not used to int erpret this result as normal/abnormal . Lab Interpretation (test Abnormal code = 25962-7) [facility]21-[facility]-15 12:04:31 Test Item Value Reference Range Interpretation Comments APTT Patient (test code See_Comment H [Au tomated message] = 3173-2) The system whic h generated this result transmitted ref erence range: 26 - 36 Seconds. The reference range was not used to int erpret this result as normal/abnormal . Lab Interpretation (test Abnormal code = 80700-4) [facility] WITH [id number] 11:50:52 Test Item Value Reference Range Interpretation Comments WBC (test code = See_Comment [Automated 6690-2) message] The sy stem which generated this result transmitted reference range : 4.20 - 10.70 10*3/?L. The reference range was not used to interpret this result as normal/abnormal . RBC (test code = See_Comment L [Automated 789-8) message] The sy stem which generated this result transmitted reference range : 4.26 - 5.52 10*6/?L. The reference range was not used to interpret this result as normal/abnormal . HGB (test code = 8.3 g/dL 12.2-16.4 L 718-7) HCT (test code = 24.7 % 38.4-49.3 L 4544-3) MCV (test code = 99.2 fL 81.7-95.6 H 787-2) MCH (test code = 33.3 pg 26.1-32.7 H 785-6) MCHC (test code = 33.6 g/dL 31.2-35.0 786-4) RDW-SD (test code = 49.7 fL 38.5-51.6 28382-7) RDW-CV (test code = 13.7 % 12.1-15.4 788-0) PLT (test code = See_Comment [Automated 777-3) message] The sy stem which generated this result transmitted reference range : 150 - 328 10*3/ ?L. The reference r jaswinder was not used to interpret this result as normal/abnormal . MPV (test code = 9.0 fL 9.8-13.0 L 37063-2) NRBC/100 WBC (test See_Comment [Automat ed code = 7438570734) message] The system which generated this result transmitted reference range : 0.0 - 10.0 /100 WBCs. The refer ence range was not u sed to interpret th is result as normal/abnormal . NRBC x10^3 (test code <0.01 See_Comment [Auto mated = 9304571711) message] The s ystem which generated this result transmitted reference range : 10*3/?L. The reference range was not used to interpret this result as normal/abnormal . GRAN MAT (NEUT) % 54.2 % (test code = 770-8) IMM GRAN % (test code 0.30 % = 3096060744) LYMPH % (test code = 34.0 % 736-9) MONO % (test code = 8.2 % 5905-5) EOS % (test code = 2.4 % 713-8) BASO % (test code = 0.9 % 706-2) GRAN MAT x10^3(ANC) 3.18 10*3/uL 1.99-6.95 (test code = 7424138076) IMM GRAN x10^3 (test <0.03 0.00-0.06 code = 0492706183) LYMPH x10^3 (test code 1.99 10*3/uL 1.09-3.23 = 731-0) MONO x10^3 (test code 0.48 10*3/uL 0.36-1.02 = 742-7) EOS x10^3 (test code = 0.14 10*3/uL 0.06-0.53 711-2) BASO x10^3 (test code 0.05 10*3/uL 0.01-0.09 = 704-7) Lab Interpretation Abnormal (test code = 20267-3) [facility] WITH [id number] 11:50:52 Test Item Value Reference Range Interpretation Comments WBC (test code = See_Comment [Automated 1411-2) message] The sy stem which generated this result transmitted reference range : 4.20 - 10.70 10*3/?L. The reference range was not used to interpret this result as normal/abnormal . RBC (test code = See_Comment L [Automated 969-8) message] The sy stem which generated this result transmitted reference range : 4.26 - 5.52 10*6/?L. The reference range was not used to interpret this result as normal/abnormal . HGB (test code = 8.3 g/dL 12.2-16.4 L 718-7) HCT (test code = 24.7 % 38.4-49.3 L 4544-3) MCV (test code = 99.2 fL 81.7-95.6 H 787-2) MCH (test code = 33.3 pg 26.1-32.7 H 785-6) MCHC (test code = 33.6 g/dL 31.2-35.0 786-4) RDW-SD (test code = 49.7 fL 38.5-51.6 46972-5) RDW-CV (test code = 13.7 % 12.1-15.4 788-0) PLT (test code = See_Comment [Automated 777-3) message] The sy stem which generated this result transmitted reference range : 150 - 328 10*3/ ?L. The reference r jaswinder was not used to interpret this result as normal/abnormal . MPV (test code = 9.0 fL 9.8-13.0 L 77144-4) NRBC/100 WBC (test See_Comment [Automat ed code = 1162511911) message] The system which generated this result transmitted reference range : 0.0 - 10.0 /100 WBCs. The refer ence range was not u sed to interpret th is result as normal/abnormal . NRBC x10^3 (test code <0.01 See_Comment [Auto mated = 3866520481) message] The s ystem which generated this result transmitted reference range : 10*3/?L. The reference range was not used to interpret this result as normal/abnormal . GRAN MAT (NEUT) % 54.2 % (test code = 770-8) IMM GRAN % (test code 0.30 % = 5785208606) LYMPH % (test code = 34.0 % 736-9) MONO % (test code = 8.2 % 5905-5) EOS % (test code = 2.4 % 713-8) BASO % (test code = 0.9 % 706-2) GRAN MAT x10^3(ANC) 3.18 10*3/uL 1.99-6.95 (test code = 2843310182) IMM GRAN x10^3 (test <0.03 0.00-0.06 code = 5612218412) LYMPH x10^3 (test code 1.99 10*3/uL 1.09-3.23 = 731-0) MONO x10^3 (test code 0.48 10*3/uL 0.36-1.02 = 742-7) EOS x10^3 (test code = 0.14 10*3/uL 0.06-0.53 711-2) BASO x10^3 (test code 0.05 10*3/uL 0.01-0.09 = 704-7) Lab Interpretation Abnormal (test code = 55271-6) [facility] THRM[facility] [id number] 01:13:40 Test Item Value Reference Range Interpretation Comments APTT Patient (test code See_Comment H [Au tomated message] = 3173-2) The system [employer] generated this result transmitted ref erence range: 26 - 36 Seconds. The reference range was not used to int erpret this result as normal/abnormal . Lab Interpretation (test Abnormal code = 97601-5) [facility] THRM[facility]AS [id number] 01:13:40 Test Item Value Reference Range Interpretation Comments APTT Patient (test code See_Comment H [Au tomated message] = 3173-2) The system [employer] [facility] [employer] generated this result transmitted ref erence range: 26 - 36 Seconds. The reference range was not used to int erpret this result as normal/abnormal . Lab Interpretation (test Abnormal code = 82865-5) [facility]cosTroponin [id number] 15:15:56 Test Item Value Reference Range Interpretation Comments TROPONIN I (test 0.705 ng/mL See_Comment H [Automated code = 5567044944) message] The system which generated this result transmitted reference range : <=0.034. The reference range was not used to interpret this result as normal/abnormal . CARLIE (test code = Equal or Less than CARLIE) 0.034 ng/ml---Normal ?Note: Cardiac troponin begins to rise 3-4 hours after the onset of ischemia. Repeat in 4-6 hours if the sample was drawn within 3-4 hours of the onset of the symptom and found normal. Between 0.035 and 0.120 ng/mL--- Borderline. Questionable myocardial injury or necrosis ? ?Note: Serial measurement may be necessary to confirm or exclude the diagnosis of myocardial injury or necrosis; Clinical correlation (symptoms, EKGs, imaging studies, and others) required; Repeat in 4-6 hours if clinically indicated. ? Equal or Higher than 0.121 ng/mL---Abnormal. Myocardial Injury or Necrosis Likely ? Biotin has been reported to cause a negative bias, interpret results relative to patient's use of biotin. ? Lab Interpretation Abnormal (test code = 67925-5) [facility] B2022-04-31 15:15:56 Test Item Value Reference Range Interpretation Comments TROPONIN I (test 0.705 ng/mL See_Comment H [Automated code = 2255992153) message] The system which generated this result transmitted reference range : <=0.034. The reference range was not used to interpret this result as normal/abnormal . CARLIE (test code = Equal or Less than CARLIE) 0.034 ng/ml---Normal ?Note: Cardiac troponin begins to rise 3-4 hours after the onset of ischemia. Repeat in 4-6 hours if the sample was drawn within 3-4 hours of the onset of the symptom and found normal. Between 0.035 and 0.120 ng/mL--- Borderline. Questionable myocardial injury or necrosis ? ?Note: Serial measurement may be necessary to confirm or exclude the diagnosis of myocardial injury or necrosis; Clinical correlation (symptoms, EKGs, imaging studies, and others) required; Repeat in 4-6 hours if clinically indicated. ? Equal or Higher than 0.121 ng/mL---Abnormal. Myocardial Injury or Necrosis Likely ? Biotin has been reported to cause a negative bias, interpret results relative to patient's use of biotin. ? Lab Interpretation Abnormal (test code = 46659-8) [facility]cos[facility]yroid Stimulating Hormone (TSH)2021-01-06 14:07:26 Test Item Value Reference Range Interpretation Comments TSH (test code = See_Comment Biotin has been 0667180633) reported to cau se a negative bias, interpret resul ts relative to pat ient's use of biotin. [Automated mess age] The system [employer] generated this result transmitted ref erence range: 0.45 - 4 .70 mIU/L. The refe rence range was not u sed to interpret this result as normal/abnor mal. Lab Interpretation (test Normal code = 75457-2) [facility]yroid Stimulating Hormone (TSH)2021-01-06 14:07:26 Test Item Value Reference Range Interpretation Comments TSH (test code = See_Comment Biotin has been 8075483967) reported to cau se a negative bias, interpret resul ts relative to pat ient's use of biotin. [Automated mess age] The system [employer] [facility] [employer] generated this result transmitted ref erence range: 0.45 - 4 .70 mIU/L. The refe rence range was not u sed to interpret this result as normal/abnor mal. Lab Interpretation (test Normal code = 55089-4) [facility]cosGlycosylated Hemoglobin (A1C)2021-01-06 13:52:23 Test Item Value Reference Range Interpretation Comments HGB A1C (test code = 5.0 % 4.0-6.0 4548-4) CARLIE (test code = CARLIE) %A1C (NGSP) Interpretation (ADA)4.8-5.6 ? ? Normal or (Non-Diabetic Range)5.7-6.4 ? ? Increased Risk (Pre-Diabetic)>6.5 ?Diabetes Indicated Lab Interpretation Normal (test code = 43879-7) [facility]cosylated Hemoglobin (A1C)2021-01-06 13:52:23 Test Item Value Reference Range Interpretation Comments HGB A1C (test code = 5.0 % 4.0-6.0 4548-4) CARLIE (test code = CARLIE) %A1C (NGSP) Interpretation (ADA)4.8-5.6 ? ? Normal or (Non-Diabetic Range)5.7-6.4 ? ? Increased Risk (Pre-Diabetic)>6.5 ?Diabetes Indicated Lab Interpretation Normal (test code = 39185-3) [facility]cosFERRITIN [id number] 11:42:16 Test Item Value Reference Range Interpretation Comments FERRITIN (test code = 54.4 ng/mL 18.0-464.0 2821803577) CARLIE (test code = CARLIE) Biotin has been reported to cause a negative bias, interpret results relative to patient's use of biotin. Lab Interpretation (test Normal code = 47980-0) [facility]cosFERRITIN [id number] 11:42:16 Test Item Value Reference Range Interpretation Comments FERRITIN (test code = 54.4 ng/mL 18.0-464.0 6990881753) CARLIE (test code = CARLIE) Biotin has been reported to cause a negative bias, interpret results relative to patient's use of biotin. Lab Interpretation (test Normal code = 09000-1) [facility]cosFOLATE2021-04-14 11:21:12 Test Item Value Reference Range Interpretation Comments FOLATE SER (test code = 15.2 ng/mL 3.0-20.0 3806456190) Lab Interpretation (test code = Normal 14156-3) [facility]2021-[facility]-14 11:21:12 Test Item Value Reference Range Interpretation Comments FOLATE SER (test code = 15.2 ng/mL 3.0-20.0 6579701046) Lab Interpretation (test code = Normal 37168-8) [facility]cosVITAMIN B12, [id number] 11:00:41 Test Item Value Reference Range Interpretation Comments VIT B12 (test code = >1000 240-930 H 4772701083) CARLIE (test code = CARLIE) Biotin has been reported to cause a positive bias, interpret results relative to patient's use of biotin. Lab Interpretation (test Abnormal code = 19415-5) [facility]IT[facility] B12, [id number] 11:00:41 Test Item Value Reference Range Interpretation Comments VIT B12 (test code = >1000 240-930 H 9443979690) CARLIE (test code = CARLIE) Biotin has been reported to cause a positive bias, interpret results relative to patient's use of biotin. Lab Interpretation (test Abnormal code = 46773-7) [facility]cosIRON [id number] 10:52:29 Test Item Value Reference Range Interpretation Comments IRON (test code = 4365044847) 14 ug/dL 50-160 L TIBC (test code = 2712201906) 250 ug/dL 250-410 % FE SAT (test code = 2409012413) 6 % 20-50 L Lab Interpretation (test code = Abnormal 78716-3) [facility] [id number] 10:52:29 Test Item Value Reference Range Interpretation Comments IRON (test code = 2050558202) 14 ug/dL 50-160 L TIBC (test code = 3488509098) 250 ug/dL 250-410 % FE SAT (test code = 3659951429) 6 % 20-50 L Lab Interpretation (test code = Abnormal 15977-1) [facility] [id number] 10:22:49 Test Item Value Reference Range Interpretation Comments TROPONIN I (test 0.729 ng/mL See_Comment H [Automated code = 1695188886) message] The system which generated this result transmitted reference range : <=0.034. The reference range was not used to interpret this result as normal/abnormal . CARLIE (test code = Equal or Less than CARLIE) 0.034 ng/ml---Normal ?Note: Cardiac troponin begins to rise 3-4 hours after the onset of ischemia. Repeat in 4-6 hours if the sample was drawn within 3-4 hours of the onset of the symptom and found normal. Between 0.035 and 0.120 ng/mL--- Borderline. Questionable myocardial injury or necrosis ? ?Note: Serial measurement may be necessary to confirm or exclude the diagnosis of myocardial injury or necrosis; Clinical correlation (symptoms, EKGs, imaging studies, and others) required; Repeat in 4-6 hours if clinically indicated. ? Equal or Higher than 0.121 ng/mL---Abnormal. Myocardial Injury or Necrosis Likely ? Biotin has been reported to cause a negative bias, interpret results relative to patient's use of biotin. ? Lab Interpretation Abnormal (test code = 75936-4) [facility] [id number] 10:22:49 Test Item Value Reference Range Interpretation Comments TROPONIN I (test 0.729 ng/mL See_Comment H [Automated code = 7849070561) message] The system which generated this result transmitted reference range : <=0.034. The reference range was not used to interpret this result as normal/abnormal . CARLIE (test code = Equal or Less than CARLEI) 0.034 ng/ml---Normal ?Note: Cardiac troponin begins to rise 3-4 hours after the onset of ischemia. Repeat in 4-6 hours if the sample was drawn within 3-4 hours of the onset of the symptom and found normal. Between 0.035 and 0.120 ng/mL--- Borderline. Questionable myocardial injury or necrosis ? ?Note: Serial measurement may be necessary to confirm or exclude the diagnosis of myocardial injury or necrosis; Clinical correlation (symptoms, EKGs, imaging studies, and others) required; Repeat in 4-6 hours if clinically indicated. ? Equal or Higher than 0.121 ng/mL---Abnormal. Myocardial Injury or Necrosis Likely ? Biotin has been reported to cause a negative bias, interpret results relative to patient's use of biotin. ? Lab Interpretation Abnormal (test code = 62725-5) [facility] (Total Cholesterol, Triglycerides, HDL)2021-01-06 10:09:04 Test Item Value Reference Range Interpretation Comments CHOL (test code = 155 mg/dL 120-200 7861338082) HDL (test code = 36 mg/dL >40 L 2759381072) HDLC RATIO (test code = See_Comment [Au tomated message] 4383309579) The system [employer] [facility] [employer] generated this result transmit thuy reference range : <=5.0. The refe rence range was not u sed to interpret th is result as normal/abnormal . TRIG (test code = 65 mg/dL 30-170 1073021003) LDL CHOL (test code = 106 mg/dL See_Comment [Auto mated message] 95521-0) The system [employer] [facility] [employer] generated this result transmit thuy reference range : <=160. The refe rence range was not u sed to interpret th is result as normal/abnormal . VLDL (test code = 13 mg/dL 5-60 8470644426) Lab Interpretation (test Abnormal code = 32982-7) [facility] (Total Cholesterol, Triglycerides, HDL)2021-01-06 10:09:04 Test Item Value Reference Range Interpretation Comments CHOL (test code = 155 mg/dL 120-200 4080279300) HDL (test code = 36 mg/dL >40 L 6364909276) HDLC RATIO (test code = See_Comment [Au tomated message] 3636802928) The system [employer] [facility] [employer] [facility] generated this result transmit thuy reference range : <=5.0. The refe rence range was not u sed to interpret th is result as normal/abnormal . TRIG (test code = 65 mg/dL 30-170 1501966568) LDL CHOL (test code = 106 mg/dL See_Comment [Auto mated message] 12722-5) The system [employer] [facility] [employer] [facility] generated this result transmit thuy reference range : <=160. The refe rence range was not u sed to interpret th is result as normal/abnormal . VLDL (test code = 13 mg/dL 5-60 0212290418) Lab Interpretation (test Abnormal code = 46588-8) [facility] (NA, K, CL, CO2, GLUCOSE, BUN, CREATININE, CA)2021-01-06 10:07:23 Test Item Value Reference Range Interpretation Comments NA (test code = 139 mmol/L 135-145 0152249945) K (test code = 4.0 mmol/L 3.5-5.0 2957367915) CL (test code = 108 mmol/L 98-108 3310068708) CO2 TOTAL (test code 26 mmol/L 23-31 = 7809601071) AGAP (test code = 2-16 7990579879) BUN (test code = 9 mg/dL 7-23 5833947761) GLUCOSE (test code = 80 mg/dL 70-110 3196013452) CREATININE (test code 0.62 mg/dL 0.60-1.25 = 8771079932) CALCIUM (test code = 8.6 mg/dL 8.6-10.6 2027721396) eGFR (test code = mL/min/1.73m2 0024738124) CARLIE (test code = CARLIE) Association of Glomerular Filtration Rate (GFR) and Staging of Kidney Disease* + + +- +| GFR (mL/min/1.73 m2) ?| With Kidney Damage ?| ?Without Kidney Damage+ ------+ ----+ ------+| ?>90 ?| ?Stage one ?| ? Normal ?+ -+ + -+| ?60-89 ?| ?Stage two ?| ? Decreased GFR ? + + +- +| ?30-59 ?| ?Stage three ?| ? Stage three ? + + +- +| ?15-29 ?| ?Stage four ? | ? Stage four ?+ -+ + -+| ?<15 (or dialysis) ? ?| ?Stage five ? | ? Stage five ?+ -+ + -+ *Each stage assumes the associated GFR level has been in effect for at least three months. ?Stages 1 to 5, with or without kidney [...] or urine or abnormalities in imaging tests). [facility] [id number] 10:07:23 Test Item Value Reference Range Interpretation Comments MAGNESIUM (test code = 3755020365) 2.2 mg/dL 1.7-2.4 Lab Interpretation (test code = Normal 66472-5) [facility] (NA, K, CL, CO2, GLUCOSE, BUN, CREATININE, CA)2021-01-06 10:07:23 Test Item Value Reference Range Interpretation Comments NA (test code = 139 mmol/L 135-145 6774893522) K (test code = 4.0 mmol/L 3.5-5.0 5610983516) CL (test code = 108 mmol/L 98-108 7145081470) CO2 TOTAL (test code 26 mmol/L 23-31 = 2457312088) AGAP (test code = 2-16 0730303780) BUN (test code = 9 mg/dL 7-23 8223792547) GLUCOSE (test code = 80 mg/dL 70-110 4644050156) CREATININE (test code 0.62 mg/dL 0.60-1.25 = 4672486106) CALCIUM (test code = 8.6 mg/dL 8.6-10.6 1623093963) eGFR (test code = mL/min/1.73m2 3601421615) CARLIE (test code = CARLIE) Association of Glomerular Filtration Rate (GFR) and Staging of Kidney Disease* + + +- +| GFR (mL/min/1.73 m2) ?| With Kidney Damage ?| ?Without Kidney Damage+ ------+ ----+ ------+| ?>90 ?| ?Stage one ?| ? Normal ?+ -+ + -+| ?60-89 ?| ?Stage two ?| ? Decreased GFR ? + + +- +| ?30-59 ?| ?Stage three ?| ? Stage three ? + + +- +| ?15-29 ?| ?Stage four ? | ? Stage four ?+ -+ + -+| ?<15 (or dialysis) ? ?| ?Stage five ? | ? Stage five ?+ -+ + -+ *Each stage assumes the associated GFR level has been in effect for at least three months. ?Stages 1 to 5, with or without kidney [...] or urine or abnormalities in imaging tests). [facility] [id number] 10:07:23 Test Item Value Reference Range Interpretation Comments MAGNESIUM (test code = 4856806810) 2.2 mg/dL 1.7-2.4 Lab Interpretation (test code = Normal 38967-6) [facility]2021-[facility]-14 10:05:22 Test Item Value Reference Range Interpretation Comments APTT Patient (test code See_Comment H [Au tomated message] = 3173-2) The system Mith[employer] h generated this result transmitted ref erence range: 26 - 36 Seconds. The reference range was not used to int erpret this result as normal/abnormal . Lab Interpretation (test Abnormal code = 19231-8) [facility]2021-[facility]-14 10:05:22 Test Item Value Reference Range Interpretation Comments APTT Patient (test code See_Comment H [Au tomated message] = 3173-2) The system ncyclo h generated this result transmitted ref erence range: 26 - 36 Seconds. The reference range was not used to int erpret this result as normal/abnormal . Lab Interpretation (test Abnormal code = 54858-9) [facility]cosProthrombin Time / [id number] 10:03:21 Test Item Value Reference Range Interpretation Comments PROTIME PATIENT (test See_Comment [Auto mated message] code = 5964-2) The system [employer] generated this result transmitted ref erence range: 10.1 - 1 2.6 Seconds. The re ference range was not u sed to interpret this result as normal/abnor mal. INR (test code = 6301-6) Nor mal INR <1.1; Warfarin Therap eutic range 2.0 to 3. 0 or 2.5 to 3.5, dep ending upon the indica tions. Lab Interpretation (test Normal code = 11383-7) [facility] / [id number] 10:03:21 Test Item Value Reference Range Interpretation Comments PROTIME PATIENT (test See_Comment [Auto mated message] code = 5964-2) The system Mithridion ich generated this result transmitted ref erence range: 10.1 - 1 2.6 Seconds. The re ference range was not u sed to interpret this result as normal/abnor mal. INR (test code = 6301-6) Nor mal INR <1.1; Warfarin Therap eutic range 2.0 to 3. 0 or 2.5 to 3.5, dep ending upon the indica tions. Lab Interpretation (test Normal code = 49968-2) [facility] with [id number] 09:58:22 Test Item Value Reference Range Interpretation Comments WBC (test code = See_Comment [Automated 6690-2) message] The sy stem which generated this result transmitted reference range : 4.20 - 10.70 10*3/?L. The reference range was not used to interpret this result as normal/abnormal . RBC (test code = See_Comment L [Automated 789-8) message] The sy stem which generated this result transmitted reference range : 4.26 - 5.52 10*6/?L. The reference range was not used to interpret this result as normal/abnormal . HGB (test code = 8.1 g/dL 12.2-16.4 L 718-7) HCT (test code = 25.1 % 38.4-49.3 L 4544-3) MCV (test code = 99.2 fL 81.7-95.6 H 787-2) MCH (test code = 32.0 pg 26.1-32.7 785-6) MCHC (test code = 32.3 g/dL 31.2-35.0 786-4) RDW-SD (test code = 49.7 fL 38.5-51.6 78854-4) RDW-CV (test code = 13.8 % 12.1-15.4 788-0) PLT (test code = See_Comment [Automated 777-3) message] The sy stem which generated this result transmitted reference range : 150 - 328 10*3/ ?L. The reference r jaswinder was not used to interpret this result as normal/abnormal . MPV (test code = 9.1 fL 9.8-13.0 L 80179-5) NRBC/100 WBC (test See_Comment [Automat ed code = 5984339051) message] The system which generated this result transmitted reference range : 0.0 - 10.0 /100 WBCs. The refer ence range was not u sed to interpret th is result as normal/abnormal . NRBC x10^3 (test code <0.01 See_Comment [Auto mated = 6401511221) message] The s ystem which generated this result transmitted reference range : 10*3/?L. The reference range was not used to interpret this result as normal/abnormal . GRAN MAT (NEUT) % 54.3 % (test code = 770-8) IMM GRAN % (test code 0.30 % = 0445796715) LYMPH % (test code = 35.9 % 736-9) MONO % (test code = 7.9 % 5905-5) EOS % (test code = 0.9 % 713-8) BASO % (test code = 0.7 % 706-2) GRAN MAT x10^3(ANC) 3.14 10*3/uL 1.99-6.95 (test code = 3354331497) IMM GRAN x10^3 (test <0.03 0.00-0.06 code = 2049934251) LYMPH x10^3 (test code 2.08 10*3/uL 1.09-3.23 = 731-0) MONO x10^3 (test code 0.46 10*3/uL 0.36-1.02 = 742-7) EOS x10^3 (test code = 0.05 10*3/uL 0.06-0.53 L 711-2) BASO x10^3 (test code 0.04 10*3/uL 0.01-0.09 = 704-7) Lab Interpretation Abnormal (test code = 32404-6) [facility] with [id number] 09:58:22 Test Item Value Reference Range Interpretation Comments WBC (test code = See_Comment [Automated 6690-2) message] The sy stem which generated this result transmitted reference range : 4.20 - 10.70 10*3/?L. The reference range was not used to interpret this result as normal/abnormal . RBC (test code = See_Comment L [Automated 789-8) message] The sy stem which generated this result transmitted reference range : 4.26 - 5.52 10*6/?L. The reference range was not used to interpret this result as normal/abnormal . HGB (test code = 8.1 g/dL 12.2-16.4 L 718-7) HCT (test code = 25.1 % 38.4-49.3 L 4544-3) MCV (test code = 99.2 fL 81.7-95.6 H 787-2) MCH (test code = 32.0 pg 26.1-32.7 785-6) MCHC (test code = 32.3 g/dL 31.2-35.0 786-4) RDW-SD (test code = 49.7 fL 38.5-51.6 71297-0) RDW-CV (test code = 13.8 % 12.1-15.4 788-0) PLT (test code = See_Comment [Automated 777-3) message] The sy stem which generated this result transmitted reference range : 150 - 328 10*3/ ?L. The reference r jaswinder was not used to interpret this result as normal/abnormal . MPV (test code = 9.1 fL 9.8-13.0 L 07028-6) NRBC/100 WBC (test See_Comment [Automat ed code = 6894702643) message] The system which generated this result transmitted reference range : 0.0 - 10.0 /100 WBCs. The refer ence range was not u sed to interpret th is result as normal/abnormal . NRBC x10^3 (test code <0.01 See_Comment [Auto mated = 2168869417) message] The s ystem which generated this result transmitted reference range : 10*3/?L. The reference range was not used to interpret this result as normal/abnormal . GRAN MAT (NEUT) % 54.3 % (test code = 770-8) IMM GRAN % (test code 0.30 % = 5833828564) LYMPH % (test code = 35.9 % 736-9) MONO % (test code = 7.9 % 5905-5) EOS % (test code = 0.9 % 713-8) BASO % (test code = 0.7 % 706-2) GRAN MAT x10^3(ANC) 3.14 10*3/uL 1.99-6.95 (test code = 9421726091) IMM GRAN x10^3 (test <0.03 0.00-0.06 code = 5640294760) LYMPH x10^3 (test code 2.08 10*3/uL 1.09-3.23 = 731-0) MONO x10^3 (test code 0.46 10*3/uL 0.36-1.02 = 742-7) EOS x10^3 (test code = 0.05 10*3/uL 0.06-0.53 L 711-2) BASO x10^3 (test code 0.04 10*3/uL 0.01-0.09 = 704-7) Lab Interpretation Abnormal (test code = 54371-0) [facility]VID-19 (ID NOW RAPID TESTING)2021-01-06 03:41:33 Test Item Value Reference Range Interpretation Comments SARS-CoV-2 Rapid ID NOW Not Detected Not Detected (test code = 76643-2) CARLIE (test code = CARLIE) ID NOW COVID-19 Assay is an isothermal nucleic acid amplification test intended for the qualitative detection of nucleic acid from SARS-CoV-2 viral RNA in nasopharyngeal ([employer]) specimens. It is used under Emergency Use Authorization (EUA) by FDA. The limit of detection (LOD) of the assay is 125 Genome Equivalents/mL. A positive result is indicative of the presence of SARS-CoV-2 RNA. ?Clinical correlation with patient history and other diagnostic information is necessary to determine patient infection status. A negative (Not Detected) result does not preclude SARS-CoV-2 infection. In patients with clinical symptoms and other tests that are consistent with SARS-CoV-2 infection, negative results should be treated as presumptive negative and a new specimen should be tested with alternative PCR molecular test. Invalid: Please collect a new specimen for repeat patient testing if clinically indicated. Lab Interpretation Normal (test code = 15193-6) [facility]06 03:41:33 Test Item Value Reference Range Interpretation Comments SARS-CoV-2 Rapid ID NOW Not Detected Not Detected (test code = 22132-2) CARLIE (test code = CARLIE) ID NOW COVID-19 Assay is an isothermal nucleic acid amplification test intended for the qualitative detection of nucleic acid from SARS-CoV-2 viral RNA in nasopharyngeal ([employer]) specimens. It is used under Emergency Use Authorization (EUA) by FDA. The limit of detection (LOD) of the assay is 125 Genome Equivalents/mL. A positive result is indicative of the presence of SARS-CoV-2 RNA. ?Clinical correlation with patient history and other diagnostic information is necessary to determine patient infection status. A negative (Not Detected) result does not preclude SARS-CoV-2 infection. In patients with clinical symptoms and other tests that are consistent with SARS-CoV-2 infection, negative results should be treated as presumptive negative and a new specimen should be tested with alternative PCR molecular test. Invalid: Please collect a new specimen for repeat patient testing if clinically indicated. Lab Interpretation Normal (test code = 18737-5) [facility] 1 [id number] 03:22:29Impression: 1. No acute abnormalities evident.2. Tortuosity of the thoracic aorta may reflect atherosclerosis orhypertension. RL: 460 End of Report Ordering Physician: ESTEBAN TAFOYA History: ?Chest pain Technique: Chest, single view Comparison: None Findings: ? The lungs are clear. No pleural effusions are evident. Heart size isnormal. Tortuosity of the thoracic aorta is noted. There is mild rightconvex curvature of the spine. No acute bony abnormalities are evident. [facility], Radiant Results Inft User - 01/05/2021 10:23 PM CDTOrdering Physician: VADIM TAFOYAHistory: Chest painTechnique: Chest, single viewComparison: NoneFindings: The lungs are clear. No pleural effusions are evident. Heart size isnormal. Tortuosity of the thoracic aorta is noted. There is mild rightconvex curvature of the spine. No acute bony abnormalities are evident.IMPRESSIONImpression:1. No acute abnormalities evident.2. Tortuosity of the thoracic aorta may reflect atherosclerosis orhypertension.RL: 460End of Report [facility] [id number] 03:22:29Impression: 1. No acute abnormalities evident.2. Tortuosity of the thoracic aorta may reflect atherosclerosis orhypertension. RL: 460 End of Report Ordering Physician: ESTEBAN TAFOYA History: ?Chest pain Technique: Chest, single view Comparison: None Findings: ? The lungs are clear. No pleural effusions are evident. Heart size isnormal. Tortuosity of the thoracic aorta is noted. There is mild rightconvex curvature of the spine. No acute bony abnormalities are evident. [facility], Radiant Results Inft User - 01/05/2021 10:23 PM CDTOrdering Physician: VADIM TAFOYAHistory: Chest painTechnique: Chest, single viewComparison: NoneFindings: The lungs are clear. No pleural effusions are evident. Heart size isnormal. Tortuosity of the thoracic aorta is noted. There is mild rightconvex curvature of the spine. No acute bony abnormalities a re evident.IMPRESSIONImpression:1. No acute abnormalities evident.2. Tortuosity of the thoracic aorta may reflect atherosclerosis orhypertension.RL: 460End of Report [facility] 03:04:07 Test Item Value Reference Range Interpretation Comments APTT Patient (test See_Comment [Automat ed code = 3173-2) message] The system which generated this result transmitted reference range : 23 - 38 Seconds . The reference range was not used to interpr et this result as normal/abnormal . CARLIE (test code = CARLIE) The [facility] patient population mean normal value for aPTT is 30 seconds. Lab Interpretation Normal (test code = 70764-8) [facility]21[facility]14 03:04:07 Test Item Value Reference Range Interpretation Comments APTT Patient (test See_Comment [Automat ed code = 3173-2) message] The system which generated this result transmitted reference range : 23 - 38 Seconds . The reference range was not used to interpr et this result as normal/abnormal . CARLIE (test code = CARLIE) The [facility] patient population mean normal value for aPTT is 30 seconds. Lab Interpretation Normal (test code = 50551-6) [facility]cosPROTHROMBIN TIME / [id number] 03:01:44 Test Item Value Reference Range Interpretation Comments PROTIME PATIENT (test See_Comment [Auto mated message] code = 5964-2) The system wh ich generated this result transmitted ref erence range: 12.0 - 1 4.7 Seconds. The re ference range was not u sed to interpret this result as normal/abnor mal. INR (test code = 6301-6) Nor mal INR <1.1; Warfarin Therap eutic range 2.0 to 3. 0 or 2.5 to 3.5, dep ending upon the indica tions. Lab Interpretation (test Normal code = 35922-8) [facility]cosPROTHROMBIN TIME / [id number] 03:01:44 Test Item Value Reference Range Interpretation Comments PROTIME PATIENT (test See_Comment [Auto mated message] code = 5964-2) The system wh ich generated this result transmitted ref erence range: 12.0 - 1 4.7 Seconds. The re ference range was not u sed to interpret this result as normal/abnor mal. INR (test code = 6301-6) Nor mal INR <1.1; Warfarin Therap eutic range 2.0 to 3. 0 or 2.5 to 3.5, dep ending upon the indica tions. Lab Interpretation (test Normal code = 93111-7) [facility]cosTROPONIN [id number] 02:56:24 Test Item Value Reference Range Interpretation Comments TROPONIN I (test 0.090 ng/mL See_Comment H [Automated code = 3814114781) message] The system which generated this result transmitted reference range : <=0.034. The reference range was not used to interpret this result as normal/abnormal . CARLIE (test code = Equal or Less than CARLIE) 0.034 ng/ml---Normal ?Note: Cardiac troponin begins to rise 3-4 hours after the onset of ischemia. Repeat in 4-6 hours if the sample was drawn within 3-4 hours of the onset of the symptom and found normal. Between 0.035 and 0.120 ng/mL--- Borderline. Questionable myocardial injury or necrosis ? ?Note: Serial measurement may be necessary to confirm or exclude the diagnosis of myocardial injury or necrosis; Clinical correlation (symptoms, EKGs, imaging studies, and others) required; Repeat in 4-6 hours if clinically indicated. ? Equal or Higher than 0.121 ng/mL---Abnormal. Myocardial Injury or Necrosis Likely ? Biotin has been reported to cause a negative bias, interpret results relative to patient's use of biotin. ? Lab Interpretation Abnormal (test code = 80994-2) [facility] [id number] 02:56:24 Test Item Value Reference Range Interpretation Comments TROPONIN I (test 0.090 ng/mL See_Comment H [Automated code = 5902657739) message] The system which generated this result transmitted reference range : <=0.034. The reference range was not used to interpret this result as normal/abnormal . CARLIE (test code = Equal or Less than CARLIE) 0.034 ng/ml---Normal ?Note: Cardiac troponin begins to rise 3-4 hours after the onset of ischemia. Repeat in 4-6 hours if the sample was drawn within 3-4 hours of the onset of the symptom and found normal. Between 0.035 and 0.120 ng/mL--- Borderline. Questionable myocardial injury or necrosis ? ?Note: Serial measurement may be necessary to confirm or exclude the diagnosis of myocardial injury or necrosis; Clinical correlation (symptoms, EKGs, imaging studies, and others) required; Repeat in 4-6 hours if clinically indicated. ? Equal or Higher than 0.121 ng/mL---Abnormal. Myocardial Injury or Necrosis Likely ? Biotin has been reported to cause a negative bias, interpret results relative to patient's use of biotin. ? Lab Interpretation Abnormal (test code = 15838-3) [facility] WITH [id number] 02:45:22 Test Item Value Reference Range Interpretation Comments WBC (test code = See_Comment [Automated 2590-2) message] The sy stem which generated this result transmitted reference range : 4.20 - 10.70 10*3/?L. The reference range was not used to interpret this result as normal/abnormal . RBC (test code = See_Comment L [Automated 789-8) message] The sy stem which generated this result transmitted reference range : 4.26 - 5.52 10*6/?L. The reference range was not used to interpret this result as normal/abnormal . HGB (test code = 9.0 g/dL 12.2-16.4 L 718-7) HCT (test code = 27.3 % 38.4-49.3 L 4544-3) MCV (test code = 98.9 fL 81.7-95.6 H 787-2) MCH (test code = 32.6 pg 26.1-32.7 785-6) MCHC (test code = 33.0 g/dL 31.2-35.0 786-4) RDW-SD (test code = 48.4 fL 38.5-51.6 54411-4) RDW-CV (test code = 13.7 % 12.1-15.4 788-0) PLT (test code = See_Comment [Automated 777-3) message] The sy stem which generated this result transmitted reference range : 150 - 328 10*3/ ?L. The reference r jaswinder was not used to interpret this result as normal/abnormal . MPV (test code = 9.1 fL 9.8-13.0 L 07395-5) NRBC/100 WBC (test See_Comment [Automat ed code = 4844455113) message] The system which generated this result transmitted reference range : 0.0 - 10.0 /100 WBCs. The refer ence range was not u sed to interpret th is result as normal/abnormal . NRBC x10^3 (test code <0.01 See_Comment [Auto mated = 2397572732) message] The s ystem which generated this result transmitted reference range : 10*3/?L. The reference range was not used to interpret this result as normal/abnormal . GRAN MAT (NEUT) % 71.9 % (test code = 770-8) IMM GRAN % (test code 0.40 % = 1812600432) LYMPH % (test code = 20.1 % 736-9) MONO % (test code = 5.7 % 5905-5) EOS % (test code = 1.3 % 713-8) BASO % (test code = 0.6 % 706-2) GRAN MAT x10^3(ANC) 3.80 10*3/uL 1.99-6.95 (test code = 3325701184) IMM GRAN x10^3 (test <0.03 0.00-0.06 code = 3070891327) LYMPH x10^3 (test code 1.06 10*3/uL 1.09-3.23 L = 731-0) MONO x10^3 (test code 0.30 10*3/uL 0.36-1.02 L = 742-7) EOS x10^3 (test code = 0.07 10*3/uL 0.06-0.53 711-2) BASO x10^3 (test code 0.03 10*3/uL 0.01-0.09 = 704-7) Lab Interpretation Abnormal (test code = 92915-6) [facility] WITH [id number] 02:45:22 Test Item Value Reference Range Interpretation Comments WBC (test code = See_Comment [Automated 6690-2) message] The sy stem which generated this result transmitted reference range : 4.20 - 10.70 10*3/?L. The reference range was not used to interpret this result as normal/abnormal . RBC (test code = See_Comment L [Automated 789-8) message] The sy stem which generated this result transmitted reference range : 4.26 - 5.52 10*6/?L. The reference range was not used to interpret this result as normal/abnormal . HGB (test code = 9.0 g/dL 12.2-16.4 L 718-7) HCT (test code = 27.3 % 38.4-49.3 L 4544-3) MCV (test code = 98.9 fL 81.7-95.6 H 787-2) MCH (test code = 32.6 pg 26.1-32.7 785-6) MCHC (test code = 33.0 g/dL 31.2-35.0 786-4) RDW-SD (test code = 48.4 fL 38.5-51.6 26037-2) RDW-CV (test code = 13.7 % 12.1-15.4 788-0) PLT (test code = See_Comment [Automated 777-3) message] The sy stem which generated this result transmitted reference range : 150 - 328 10*3/ ?L. The reference r jaswinder was not used to interpret this result as normal/abnormal . MPV (test code = 9.1 fL 9.8-13.0 L 39379-4) NRBC/100 WBC (test See_Comment [Automat ed code = 3664255331) message] The system which generated this result transmitted reference range : 0.0 - 10.0 /100 WBCs. The refer ence range was not u sed to interpret th is result as normal/abnormal . NRBC x10^3 (test code <0.01 See_Comment [Auto mated = 4831819268) message] The s ystem which generated this result transmitted reference range : 10*3/?L. The reference range was not used to interpret this result as normal/abnormal . GRAN MAT (NEUT) % 71.9 % (test code = 770-8) IMM GRAN % (test code 0.40 % = 0107328615) LYMPH % (test code = 20.1 % 736-9) MONO % (test code = 5.7 % 5905-5) EOS % (test code = 1.3 % 713-8) BASO % (test code = 0.6 % 706-2) GRAN MAT x10^3(ANC) 3.80 10*3/uL 1.99-6.95 (test code = 4417449761) IMM GRAN x10^3 (test <0.03 0.00-0.06 code = 3542842164) LYMPH x10^3 (test code 1.06 10*3/uL 1.09-3.23 L = 731-0) MONO x10^3 (test code 0.30 10*3/uL 0.36-1.02 L = 742-7) EOS x10^3 (test code = 0.07 10*3/uL 0.06-0.53 711-2) BASO x10^3 (test code 0.03 10*3/uL 0.01-0.09 = 704-7) Lab Interpretation Abnormal (test code = 21244-6) [facility]. METABOLIC PANEL ([id number])2021-01-06 02:44:41 Test Item Value Reference Range Interpretation Comments NA (test code = 137 mmol/L 135-145 4358135979) K (test code = 4.2 mmol/L 3.5-5.0 0615650745) CL (test code = 106 mmol/L 98-108 9953205216) CO2 TOTAL (test code = 24 mmol/L 23-31 8934657805) AGAP (test code = 2-16 4211860980) BUN (test code = 11 mg/dL 7-23 5899873606) GLUCOSE (test code = 90 mg/dL 70-110 0632997754) CREATININE (test code = 0.65 mg/dL 0.60-1.25 1156699486) TOTAL BILI (test code = 0.6 mg/dL 0.1-1.1 7055274352) CALCIUM (test code = 8.7 mg/dL 8.6-10.6 9859968591) T PROTEIN (test code = 6.3 g/dL 6.3-8.2 9594450540) ALBUMIN (test code = 3.9 g/dL 3.5-5.0 5106687208) ALK PHOS (test code = 33 U/L 34-122 L 0227749932) ALTv (test code = 10 U/L 5-50 1742-6) AST(SGOT) (test code = 29 U/L 13-40 0433857710) eGFR (test code = mL/min/1.73m2 1244571965) CARLIE (test code = CARLIE) Association of Glomerular Filtration Rate (GFR) and Staging of Kidney Disease* + --+ --+ ------+| GFR (mL/min/1.73 m2) ?| With Kidney Damage ?| ?Without Kidney Damage+ --------+ --------+ +| ?>90 ?| ?Stage one ?| ? Normal ?+ ---+ ---+ -------+| ?60-89 ?| ?Stage two ?| ? Decreased GFR ? + --+ --+ ------+| ?30-59 ?| ?Stage three ?| ? Stage three ? + --+ --+ ------+| ?15-29 ?| ?Stage four ? | ? Stage four ?+ ---+ ---+ -------+| ?<15 (or dialysis) ? ?| ?Stage five ? | ? Stage five ?+ ---+ ---+ -------+ *Each stage assumes the associated GFR level has been in effect for at least three months. ?Stages 1 to 5, with or without kidney [...] tests). Lab Interpretation Abnormal (test code = 20804-1) [facility]. METABOLIC PANEL ([id number])2021-01-06 02:44:41 Test Item Value Reference Range Interpretation Comments NA (test code = 137 mmol/L 135-145 2900811241) K (test code = 4.2 mmol/L 3.5-5.0 5819066016) CL (test code = 106 mmol/L 98-108 8986635254) CO2 TOTAL (test code = 24 mmol/L 23-31 5299410772) AGAP (test code = 2-16 4084149864) BUN (test code = 11 mg/dL 7-23 0255550347) GLUCOSE (test code = 90 mg/dL 70-110 5336233829) CREATININE (test code = 0.65 mg/dL 0.60-1.25 0016526772) TOTAL BILI (test code = 0.6 mg/dL 0.1-1.7 3825283459) CALCIUM (test code = 8.7 mg/dL 8.6-10.6 7916477248) T PROTEIN (test code = 6.3 g/dL 6.3-8.2 6687664460) ALBUMIN (test code = 3.9 g/dL 3.5-5.0 2744291026) ALK PHOS (test code = 33 U/L 34-122 L 1678978031) ALTv (test code = 10 U/L 5-50 1742-6) AST(SGOT) (test code = 29 U/L 13-40 5224902441) eGFR (test code = mL/min/1.73m2 0509324169) CARLIE (test code = CARLIE) Association of Glomerular Filtration Rate (GFR) and Staging of Kidney Disease* + --+ --+ ------+| GFR (mL/min/1.73 m2) ?| With Kidney Damage ?| ?Without Kidney Damage+ --------+ --------+ +| ?>90 ?| ?Stage one ?| ? Normal ?+ ---+ ---+ -------+| ?60-89 ?| ?Stage two ?| ? Decreased GFR ? + --+ --+ ------+| ?30-59 ?| ?Stage three ?| ? Stage three ? + --+ --+ ------+| ?15-29 ?| ?Stage four ? | ? Stage four ?+ ---+ ---+ -------+| ?<15 (or dialysis) ? ?| ?Stage five ? | ? Stage five ?+ ---+ ---+ -------+ *Each stage assumes the associated GFR level has been in effect for at least three months. ?Stages 1 to 5, with or without kidney [...] tests). Lab Interpretation Abnormal (test code = 00621-7) [facility], [id number] 02:44:21 Test Item Value Reference Range Interpretation Comments LIPASE (test code = 1303485551) 179 U/L 0-220 Lab Interpretation (test code = Normal 70470-1) [id number] 02:44:21 Test Item Value Reference Range Interpretation Comments LIPASE (test code = 7196999994) 179 U/L 0-220 Lab Interpretation (test code = Normal 88839-7) [facility]"
[2021-10-01 06:52] LABS: Absolute Lymphocytes (CBC) 2.1 K/uL (0.7-4.9); Hematocrit 44.2 % (39.6-49.0); MPV 7.4 fL (7.6-11.3); Protime INR 0.93; RBC Red Blood Cell Count 4.51 M/uL (4.33-5.43)
[2021-10-01 07:08] LABS: ALT/SGPT 26 U/L (12-78); AST/SGOT 18 U/L (15-37); Albumin 3.8 g/dL (3.4-5.0); Alkaline Phosphatase 58 U/L (45-117); BUN Blood Urea Nitrogen 13 mg/dL (7-18); Bicarbonate 28 mmol/L (21-32); Bilirubin Direct 0.1 mg/dL (0-0.2); Bilirubin Total 0.4 mg/dL (0.2-1.0); Glucose Level 96 mg/dL (74-106); Magnesium 2.5 mg/dL (1.8-2.4); NT PRO-BNP 1159 pg/mL (<450); Potassium 4.3 mmol/L (3.5-5.1); Protein, Total 7.6 g/dL (6.4-8.2); Sodium Level 138 mmol/L (136-145); Troponin (Emerg Dept Use Only) < 0.02 ng/mL (0.0-0.045)
--- NOTE | 2021-10-01 08:10 | EDPHYS ---
Physician Documentation [facility] Name: Cecil Butterfield Age: 81 yrs Sex: Male : 1940 Arrival Date: 10/01/2021 Time: 05:37 Bed 18 Private MD: ED Physician Pillo Robles HPI: 10/01 06:55 This 81 yrs old Male presents to ER via Ambulatory with complaints of Irregular Pulse - jr8 and Blood Pressure. 06:55 Patient stated that while checking his BP and pulse at home, noticed that his pulse jr8 rate was in the 40s. Denies CP, Shortness of breath, dizziness, near syncope, syncope, or general weakness. 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 Currently on beta blockers . Severity of symptoms: At their worst the symptoms were mild in the emergency department the symptoms are unchanged. It is unknown whether or not the patient has had similar symptoms in the past. The patient has not recently seen a physician. Historical: - Allergies: 06:44 No Known Allergies; kd3 - Home Meds: 06:03 aspirin 81 mg Oral TbEC 1 tab once daily [Active]; atenolol 25 mg Oral tab 1 tab once vc1 daily [Active]; metoprolol tartrate 25 mg Oral tab [Active]; - PMHx: 06:03 Anemia; blood transfusion from bleeding ucler; CAD; GI Bleed; Hypertension; Ulcers; vc1 - PSHx: 06:03 Open Heart Surgery; vc1 - Immunization history:: Adult Immunizations up to date, Client reports receiving the 2nd dose of the Covid vaccine, Moderna for 1st 2nd and booster. - Social history:: Smoking status: Patient denies any tobacco usage or history of. ROS: 06:55 Constitutional: Negative for fever, chills, and weight loss, Cardiovascular: Negative jr8 for chest pain, palpitations, and edema, Respiratory: Negative for shortness of breath, cough, wheezing, and pleuritic chest pain, Abdomen/GI: Negative for abdominal pain, nausea, vomiting, diarrhea, and constipation, Neuro: Negative for headache, weakness, numbness, tingling, and seizure. 06:55 All other systems are negative. Exam: 06:55 Constitutional: This is a well developed, well nourished patient who is awake, alert, jr8 and in no acute distress. Neck: Trachea midline, no thyromegaly or masses palpated, and no cervical lymphadenopathy. Supple, full range of motion without nuchal rigidity, or vertebral point tenderness. No Meningismus. Cardiovascular: Regular rate and rhythm with a normal S1 and S2. No gallops, murmurs, or rubs. Normal PMI, no JVD. No pulse deficits. Respiratory: Lungs have equal breath sounds bilaterally, clear to auscultation and percussion. No rales, rhonchi or wheezes noted. No increased work of breathing, no retractions or nasal flaring. Abdomen/GI: Soft, non-tender, with normal bowel sounds. No distension or tympany. No guarding or rebound. No evidence of tenderness throughout. Skin: Warm, dry with normal turgor. Normal color with no rashes, no lesions, and no evidence of cellulitis. MS/ Extremity: Pulses equal, no cyanosis. Neurovascular intact. Full, normal range of motion. Neuro: Awake and alert, GCS 15, oriented to person, place, time, and situation. Cranial nerves II-XII grossly intact. Motor strength 5/5 in all extremities. Sensory grossly intact. Vital Signs: 06:00 BP 114 / 71; Pulse 77; Resp 16; Temp 97.3; Pulse Ox 98% on R/A; Weight 58.97 kg; Height vc1 5 ft. 4 in. (162.56 cm); Pain 0/10; 06:57 BP 113 / 74; Pulse 66; Resp 17; Pulse Ox 95% on R/A; Pain 0/10; kd3 08:36 BP 104 / 64; Pulse 70; Resp 19; Temp 98; Pulse Ox 97% ; bp 06:00 Body Mass Index 22.31 (58.97 kg, 162.56 cm) vc1 MDM: 06:12 Patient medically screened. jr8 08:08 Data reviewed: vital signs, nurses notes, lab test result(s), EKG, radiologic studies, jr8 plain films. Data interpreted: Pulse oximetry: on room air is 95 %. Interpretation: normal. 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 ED course: Patient has remained hemodynamically stable and without bradycardia at this time. EKG within normal limits. Occasional PVC noted. Patient has been asymptomatic. Blood pressures remain normal. Labs stable. We will send patient home to follow-up with cardiology. Knows to come back if he is worsening point time.. 10/01 06:08 Order name: Basic Metabolic Panel; Complete Time: 07:44 bb 10/01 06:08 Order name: CBC with Diff; Complete Time: 06:59 10/01 06:08 Order name: LFT's; Complete Time: 07:44 10/01 06:08 Order name: Magnesium; Complete Time: 07:44 10/01 06:08 Order name: NT PRO-BNP; Complete Time: 07:44 10/01 06:08 Order name: PT-INR; Complete Time: 06:54 10/01 06:08 Order name: Troponin (emerg Dept Use Only); Complete Time: 07:44 10/01 06:08 Order name: XRAY Chest (1 view) 10/01 06:08 Order name: EKG; Complete Time: 06:10 10/01 06:08 Order name: Cardiac monitoring; Complete Time: 06:52 10/01 06:08 Order name: EKG - Nurse/Tech; Complete Time: 06:14 10/01 06:08 Order name: Labs collected and sent; Complete Time: 06:52 10/01 06:08 Order name: O2 Per Protocol; Complete Time: 06:52 10/01 06:08 Order name: O2 Sat Monitoring; Complete Time: 06:53 bb Administered Medications: No medications were administered Disposition Summary: 10/01/21 08:09 Discharge Ordered Location: Home jr8 Problem: new jr8 Symptoms: have improved jr8 Condition: Stable jr8 Diagnosis - Bradycardia, unspecified jr8 Followup: jr8 - With: Private Physician - When: 2 - 3 days - Reason: Recheck today's complaints, Continuance of care, Re-evaluation by your physician Discharge Instructions: - Discharge Summary Sheet jr8 - Bradycardia, Adult jr8 Forms: - Medication Reconciliation Form jr8 - Thank You Letter jr8 - Antibiotic Education jr8 - Prescription Opioid Use jr8 Signatures: Dispatcher [employer] EDMD Soto, Dacia, RN RN bb Vitor Iglesias PA PA jr8 Ariana Aguero, RN RN kd3 Tila Wheeler RN RN vc1
--- NOTE | 2021-10-01 08:10 | ER ---
Nurse's Notes [facility] Name: Cecil Butterfield Age: 81 yrs Sex: Male : 1940 Arrival Date: 10/01/2021 Time: 05:37 Bed 18 Private MD: Diagnosis: Bradycardia, unspecified Presentation: 10/01 06:00 Chief complaint: Patient states: I keep having fluctuations in my blood pressure and my vc1 pulse, what concerns me the most is my pulse was in the 40's. I'm a vegetarian I don't know if that matters. Coronavirus screen: Vaccine status: Patient reports receiving the 2nd dose of the covid vaccine. Moderna for 1st, 2nd, and booster At this time, the client does not indicate any symptoms associated with coronavirus-19. Ebola Screen: No symptoms or risks identified at this time. Initial Sepsis Screen: Does the patient meet any 2 criteria? No. Patient's initial sepsis screen is negative. Does the patient have a suspected source of infection? No. Patient's initial sepsis screen is negative. Risk Assessment: Do you want to hurt yourself or someone else? Patient reports no desire to harm self or others. Onset of symptoms was September 30, 2021. 06:00 Method Of Arrival: Ambulatory vc1 06:00 Acuity: JAMSHID 3 vc1 06:07 Coronavirus screen: Vaccine status: Patient reports receiving the 2nd dose of the covid vc1 vaccine. Triage Assessment: 06:08 General: Appears in no apparent distress. Behavior is calm, cooperative, appropriate vc1 for age. Pain: Denies pain. Cardiovascular: No deficits noted. Historical: - Allergies: 06:44 No Known Allergies; kd3 - Home Meds: 06:03 aspirin 81 mg Oral TbEC 1 tab once daily [Active]; atenolol 25 mg Oral tab 1 tab once vc1 daily [Active]; metoprolol tartrate 25 mg Oral tab [Active]; - PMHx: 06:03 Anemia; blood transfusion from bleeding ucler; CAD; GI Bleed; Hypertension; Ulcers; vc1 - PSHx: 06:03 Open Heart Surgery; vc1 - Immunization history:: Adult Immunizations up to date, Client reports receiving the 2nd dose of the Covid vaccine, Moderna for 1st 2nd and booster. - Social history:: Smoking status: Patient denies any tobacco usage or history of. Screenin:43 Abuse screen: Denies threats or abuse. Denies injuries from another. Nutritional kd3 screening: No deficits noted. Tuberculosis screening: No symptoms or risk factors identified. Fall Risk None identified. Assessment: 06:44 Pain: denies pain. kd3 06:44 Pain: Denies pain. kd3 06:47 Pain: Pain began denies pain. kd3 06:57 General: Appears in no apparent distress. Behavior is calm, cooperative, appropriate kd3 for age. Neuro: No deficits noted. Cardiovascular: No deficits noted. Respiratory: No deficits noted. GI: No deficits noted. : No deficits noted. EENT: No deficits noted. 07:00 Reassessment: RECD REPORT FROM MODESTA RN, 81YO BM P/W PALPITATIONS. ALL CURRENT ORDERS bp COMPLETED. 08:36 Reassessment: PT DC HOME AMBULATORY, DX WITH BRADYCARDIA. bp Vital Signs: 06:00 BP 114 / 71; Pulse 77; Resp 16; Temp 97.3; Pulse Ox 98% on R/A; Weight 58.97 kg; Height vc1 5 ft. 4 in. (162.56 cm); Pain 0/10; 06:57 BP 113 / 74; Pulse 66; Resp 17; Pulse Ox 95% on R/A; Pain 0/10; kd3 08:36 BP 104 / 64; Pulse 70; Resp 19; Temp 98; Pulse Ox 97% ; bp 06:00 Body Mass Index 22.31 (58.97 kg, 162.56 cm) vc1 ED Course: 05:37 Patient arrived in ED. wm 06:03 Triage completed. vc1 06:09 Ariana Aguero, ELLE is Primary Nurse. kd3 06:09 Arm band placed on left wrist. vc1 06:11 Vitor Iglesias PA is PHCP. jr8 06:11 Pillo Robles MD is Attending Physician. jr8 06:30 XRAY Chest (1 view) In Process Unspecified. EDMS 06:44 No provider procedures requiring assistance completed. Patient maintains SpO2 kd3 saturation greater than 95% on room air. 06:47 Patient has correct armband on for positive identification. Side rails up X2. kd3 06:47 Troponin (emerg Dept Use Only) Sent. kd3 06:47 PT-INR Sent. kd3 06:48 NT PRO-BNP Sent. kd3 06:48 Magnesium Sent. kd3 06:48 LFT's Sent. kd3 06:48 CBC with Diff Sent. kd3 06:48 Basic Metabolic Panel Sent. kd3 07:00 monitoring analyst on. Pulse ox on. NIBP on. bp 08:37 IV discontinued, intact, bleeding controlled, No redness/swelling at site. Pressure bp dressing applied. Administered Medications: No medications were administered Outcome: 08:09 Discharge ordered by MD. juan 08:37 Discharged to home ambulatory. bp 08:37 Condition: stable 08:37 Discharge instructions given to patient, Instructed on discharge instructions, follow up and referral plans. Demonstrated understanding of instructions, follow-up care. 08:38 Patient left the ED. bp Signatures: Dispatcher [employer] EDMS Vitor Iglesias PA PA jrNolan Price, RN RN Idalia Blanchard Kyli RN RN kd3 Tila Wheeler RN RN vc1 Corrections: (The following items were deleted from the chart) 06:08 06:00 Coronavirus screen: Vaccine status: Patient reports receiving the 2nd dose of the vc1 covid vaccine. Unsure of Brand, has had booster At this time, the client does not indicate any symptoms associated with coronavirus-19. vc1
[2021-10-01 08:46] VITALS: BP 104/64; TEMP 98; O2SAT 97
--- NOTE | 2021-10-01 09:14 | RAD REPORT ---
EXAM DESCRIPTION: RAD - Chest Single View - 10/01/2021 6:30 am CLINICAL HISTORY: CHEST PAIN COMPARISON: Portable 03/09/2021 TECHNIQUE: AP portable chest image was obtained 10/01/2021 6:30 am . FINDINGS: No focal mass or consolidation. Interstitial pattern matches comparison. Sternotomy wires are in place. Heart and vasculature are normal. No measurable pleural effusion and no pneumothorax. N o acute bony abnormality seen. No acute aortic findings suspected. IMPRESSION: No acute cardiopulmonary process. Mild chronic interstitial parenchymal opacification.
--- NOTE | 2021-10-02 13:50 | EKG ---
Test Date: 2021-10-01 Test Time: 06:25:27 Vault Service Mechanic: PERRI MEASUREMENT RESULTS: Intervals: Rate: 66 TN: 164 QRSD: 88 QT: 426 QTc: 446 Anderson: P: 69 TN: 164 QRS: 65 T: 54 INTERPRETIVE STATEMENTS: Sinus rhythm with occasional premature ventricular complexes and fusion complexes Otherwise normal ECG Compared to ECG 03/09/2021 00:52:05 Fusion complex(es) now present Electronically Signed On 10-02-21 13:47:45 CHIEF GREEN OFFICER by Merritt Wheeler
== END 2021-10-01 08:38 | disposition home or self-care (01) ==
LOC: ER 05:31
DX: R00.1 Bradycardia, unspecified (principal); I10 Essential (primary) hypertension; I25.10 Atherosclerotic heart disease of native coronary artery without angina pectoris; D64.9 Anemia, unspecified
CPT/HCPCS: 36415; 71045; 80048; 80076; 83735; 83880; 84484; 85025; 85610; 93005; 99284

== ENCOUNTER 2021-12-18 18:40 | Observation (INO) | payer MEDICARE, BC ==
--- OUTSIDE RECORDS SUMMARY | 2021-12-18 18:47 | XMS REPORT | Continuity of Care Document ---
:1940 Author Organization [facility] t Address [address] [place] [address] Care Team Providers Name Role Phone Pollo Aranda Primary Care Physician Ivan VENCES, Gene Attending Clinician Vadim ALMEIDA, A Attending Clinician Unavailable Provider, Urgent Care Attending Clinician Unavailable Alverto TODD Attending Clinician Rodrigue COLON Attending Clinician Deborah VENCES T Attending Clinician Rodrigue COLON Admitting Clinician Opal Cabrera MD Admitting Clinician Payers Payer Name Policy Type Policy Number Effective Date Expiration Date S ource Problems Condition Condition Condition Status Onset Resolution Last Treating Co mments Source Name Details Category Date Date Treatment Clinician Date Hematemesi Hematemesi Disease Active U nivers s with s with 1-14 ity of nausea nausea 00:00: [address] Abdominal Abdominal Disease Active Uni vers pain, pain, 1-14 ity of epig[place] [address] [place] [address] Fatigue, Fatigue, Disease Active Unive rs unspecifie unspecifie 1-14 it y of d type d type 00:00: [address] Urinary Urinary Disease Active Univers tract tract 1-14 it[place] of infection [place] without without 00 Medical hematuria, hematuria, Br anch site site unspecifie unspecifie d d Weight Weight Disease Active Univers loss, loss, 1-14 ity of unintentio unintentio [place] n[place] nal 00 Medical Branch Indigestio Indigestio Disease Active U nivers n n 1-14 ity of 00:00: [place] [facility] Nausea and Nausea and Disease Active U nivers vomiting, vomiting, 1-08 ity of intractabi intractabi 00:00: [place] lity of lity of 00 Medical vomiting vomiting Branch not not specified, specified, unspecifie unspecifie d vomiting d vomiting type type FRIED FRIED Disease Active Univers (dyspnea (dyspnea 6-06 ity of on on 00:00: [place] exertion) exertion) 00 [facility] joana Branch Essential Essential Disease Active Uni vers hypertensi hypertensi 6-06 it y of on on 00:00: [place] [facility] Dyslipidem Dyslipidem Disease Active U nivers ia ia 6-06 ity of 00:00: [place] 00 Medical Branch S/P CABG x S/P CABG x Disease Active U nivers 3 3 4-28 ity of 00:00: 00 Medical Branch Coronary Coronary Disease Active Overview: Un mark artery artery 4-19 Formattin ity of disease of disease of 00:00: g of this [place] 00 note Medical artery of artery of might be [place] different heart with heart with from the stable stable original. angina angina Added pectoris pectoris automatic ally from request for surgery [id number] Chest pain Chest pain Disease Active U nivers 4-14 ity of 00:00: [place] 00 Medical Branch NSTEMI NSTEMI Disease Active Univers (non-ST (non-ST 4-14 ity of elevated elevated 00:00: [place] myocardial myocardial 00 Me dical infarction infarction Br anch ) ) Iron Iron Disease Active Overview: Univer s deficiency deficiency 4-13 Formattin ity of anemia, anemia, 00:00: g of this [place] unspecifie unspecifie 00 note Me dical d iron d iron might be Branch deficiency deficiency different anemia anemia from the type type original. Added automatic ally from request for surgery [id number] Allergies, Adverse Reactions, Alerts This patient has no known allergies or adverse reactions. Social History Social Habit Start Date Stop Date Quantity Comments Source History of tobacco Cigarette Smoker University of use [facility] History SDOH University o f Alcohol Frequency [place] M edical Branch History SDOH University o f Alcohol Std Drinks [place] [facility] [place] History [facility] University o f Alcohol Binge [place] Medic al Branch Exposure to Not sure [facility] SARS-CoV-2 (event) [facility] Alcohol intake 2021-10-12 2021-10-12 Current drinker Unive rsity of 00:00:00 00:00:00 of alcohol [facility] (finding) [place] Cigarettes smoked 2021-01-18 2021-01-18 Univers ity of current (pack per 00:00:00 00:00:00 [facility] [place] [facility] ) - Reported Branch Cigarette 2021-01-18 2021-01-18 University of pack-years 00:00:00 00:00:00 [facility] Tobacco use and 2021-01-18 2021-01-18 Never used Universit y of exposure 00:00:00 00:00:00 [facility] Alcohol Comment 2021-01-06 2021-01-06 socially Universit y of 00:00:00 00:00:00 [facility] Sex [birth year] Universit y of 00:00:00 00:00:00 [facility] Smoking Status Start Date Stop Date Source Former smoker 2021-01-18 00:00:00 2021-01-18 00:00:00 Universi ty of [facility] Medications Ordered Filled Start Stop Current Ordering Indication Dosage Frequency Signature Comments Components Source Medication Medication Date Date Medication? Clinician (SIG) Name Name ondansetron Yes [id number] 8mg Take 1 Univers (ZOFRAN) 8 1-14 tablet by ity of mg tablet 00:00: mouth [place] 00 every 8 Medical (eight) Branch hours as needed for N/V unresponsi ve to Promethazi ne. famotidine Yes [id number] 40mg Take 1 U nivers (PEPCID) 40 1-14 tablet by ity of mg tablet 00:00: mouth 2 00 (two) Medical times Branch daily. sucralfate 2021- No [id number] 1000mg Take 10 mL Univers 100 mg/mL 10-08 by mouth ity o f suspension 00:00: 00:00 before [place] 00 :00 meals and Medical at bedtime Branch for 30 days. ciprofloxac 2021- No [id number] 500mg Take 1 Univers in HCl 10-08 tablet by ity of (CIPRO) 500 00:00: 05:59 [place] mg tablet 00 :00 every 12 Medica l (twelve) Branch hours for 10 days. proMETHazin Yes [id number] 25mg Take 1 Univers e 25 mg 1-10 tablet by ity of tablet 00:00: mouth [place] 00 every 6 Medical (six) Branch hours as needed for Nausea and Vomiting (N/V). zolpidem 5 2020-09 Yes 5mg Take 5 mg Un mark mg tablet 11-17 by mouth ity of 00:00: at [place] 00 bedtime. Medical Branch atorvastati Yes [id number] 80mg Take 1 Univers n 80 mg 7-13 tablet by ity of tablet 00:00: mouth at [place] 00 bedtime. Medical Branch clopidogreL Yes [id number] 75mg Take 1 Univers 75 mg 7-13 tablet by ity of tablet 00:00: mouth 00 daily. Medical Branch metoprolol Yes [id number] 25mg Take 1 Univers tartrate 25 7-13 tablet by ity of mg tablet 00:00: mouth [place] 00 every 12 Medical (twelve) Branch hours. mupirocin 2 Yes [id number] Apply to Univers % ointment 01-30 area(s) 3 ity of 00:00: (three) [place] 00 times Medical daily. Branch aspirin 81 2020- No S/P CABG x 81mg Take 1 Univers mg chewable 01-28 3 tablet by it y of tablet 00:00: 04:59 mouth [place] 00 :00 daily for Medical 90 days. Branch atorvastati 2020- No S/P CABG x 80mg Take 1 Univers n 80 mg 01-28 3 tablet by ity of tablet 00:00: 04:59 mouth at [place] 00 :00 bedtime Medical for 90 Branch days. clopidogreL S/P CABG x 75mg Take 1 Univers 75 mg 01-28 3 tablet by ity of tablet 00:00: 04:59 mouth [place] 00 :00 daily for Medical 90 days. Branch metoprolol No S/P CABG x 25mg Take 1 Univers tartrate 25 01-28 3 tablet by it y of mg tablet 00:00: 04:59 mouth [place] 00 :00 every 12 Medical (twelve) Branch hours for 90 days. pantoprazol S/P CABG x 40mg Take 1 Univers e 40 mg EC 01-28 3 tablet by ity of tablet 00:00: 04:59 mouth [place] 00 :00 daily for Medical 30 days. Branch acetaminoph No S/P CABG x 650mg Take 2 Univers en 325 mg 01-28 3 tablets by ity of tablet 00:00: 04:59 mouth [place] 00 :00 every 6 Medical (six) Branch hours as needed for Temp > 38.5 C for up to 30 days. ferrous S/P CABG x 325mg Take 1 Univers sulfate 325 01-28 3 tablet by it y of mg (65 mg 00:00: 04:59 mouth 2 [place] iron) 00 :00 (two) Medical tablet times Branch daily before breakfast and dinner for 30 days. acetaminoph acute pain 1{tbl} Take 1 Univers en-codeine [...] Medic al (NS) 250 mL 01/26/21 at [facility] piggyback 0615, 250 mL metoprolol 2020- No 12.5mg 12.5 mg, Univers tartrate 01-26 Oral, ity of (LOPRESSOR) 04:45: 04:33 ONCE, 1 [place] half tablet 00 :00 dose, Mon Med ical 12.5 mg 01/25/21 at Branch 2345, Routine metoprolol 2020- No 12.5mg 12.5 mg, Univers succinate 01-25 Oral, ity of XL (TOPROL 14:00: 12:04 DAILY, [place] XL) tablet 00 :59 First dose Med ical 12.5 mg on Mon [place] 01/25/21 at 0900, Until Discontinu ed, Routine metoprolol 2020- No 12.5mg 12.5 mg, Univers tartrate 01-25 Oral, ONCE ity of (LOPRESSOR) 12:14: 13:06 NOW, 1 [place] half tablet 00 :00 dose, [facility] Med ical 12.5 mg 01/25/21 at Branch 0715, Routine polyethylen 2020- No 17g 17 g, Univ ers e glycol 01-25 Oral, ity of 3350 powder 05:00: 11:00 ONCE, 1 [place] 17 g 00 :00 dose, [facility] Medical 01/25/21 at Branch 0000, Routine albumin [...] No 30mL 30 mL, Unive rs hydroxide 01-2404 Oral, ity of (MILK OF 19:00: 11:09 DAILY, [place] MAGNESIA) 00 :59 First dose Medi joana 400 mg/5 mL on [facility] suspension 01/24/21 at 30 mL 1400, Until Discontinu ed, Routine lactated 2020- No 250mL at 999 Unive rs ringers IV 01-24 05-02 mL/hr, 250 it y of infusion 15:45: 15:15 mL, [place] 250 mL 00 :00 Intravenou Medical s, ONCE, 1 Branch dose, [place] 01/24/21 at 1045, Routine clopidogreL Yes 75mg 75 mg, Univ ers (PLAVIX) 01-24 Oral, ity of tablet 75 14:00: DAILY, [place] mg 00 First dose Medical on [facility] 01/24/21 at 0900, Until Discontinu ed, Routine
member services representative approving Restricted medication : ESCOBAR CABRERA aspirin Yes 81mg 81 mg, Univers chewable 01-24 Oral, ity of tablet 81 14:00: DAILY, [place] mg 00 First dose Medical on [facility] 01/24/21 at 0900, Until Discontinu ed, Routine pantoprazol 2020- No 40mg 40 mg, Uni vers e 01-24 Oral, ity of (PROTONIX) 14:00: 13:59 DAILY, 30 [place] EC tablet 00 :00 doses, Medical 40 mg First dose Branch on [place] 01/24/21 at 0900, Last dose on Mon02/22/21 at 0900, Routine atorvastati Yes 80mg 80 mg, Univ ers n (LIPITOR) 01-24 Oral, QHS, it y of tablet 80 02:00: First dose [place] mg 00 on [facility] 01/23/21 at Branch 2100, Until Discontinu ed, Routine ferrous Yes 325mg 325 mg, Univer s sulfate 01-23 Oral, ity of tablet 325 21:30: BIDAC, [place] mg 00 First dose Medical on [facility] 01/23/21 at 1630, Until Discontinu ed, Routine Sliding Yes Subcutaneo Univ ers Scale 01-23 us, AC+HS, ity of Insulin-Reg 16:30: First dose [place] ular + Fsbg 00 on Sat Medica l Testing 01/23/21 at Branch 1130, Until Discontinu ed, Routine metoprolol No 12.5mg 12.5 mg, [facility] tartrate 01-23 05-04 Oral, ity of (LOPRESSOR) [...] IV ity of (D50W) 14:02: Push, PRN, [place] injection 37 Starting Medica l 25 mL 01/23/21 Branch at 0902, Until Discontinu ed, EMBER, Blood Glucose < or = 70 mg/dL and patient is unable to swallow or has mental status changes. ondansetron Yes 4mg 4 mg, Slow Univers (ZOFRAN 01-23 IV Push, ity of (PF)) 14:02: Q6HPRN, [place] injection 4 37 Starting Medi joana mg [...] Routine, Constipati on, For bowel movemnet bisacodyL Yes 10mg 10 mg, Univer s (DULCOLAX) 01-23 Rectal, ity of suppository 14:02: PRN - SEE [place] 10 mg 36 [facility], 1 [place] dose, Starting 01/23/21 at 0902, Until Discontinu ed, Routine, Constipati on, For bowel movent acetaminoph Yes 650mg 650 mg, Un mark en 01-23 Oral, ity of (TYLENOL) 14:02: Q6HPRN, [place] tablet 650 36 Starting Medic al mg 01/23/21 Branch at 0902, Until Discontinu ed, Routine, Temp > 38.5 C acetaminoph Yes 2{tbl} 2 tablet, Univers en-codeine 01-23 Oral, ity of (TYLENOL 14:02: Q4HPRN, [place] #3) 300-30 36 Starting Medic al mg tablet 2 01/23/21 Br anch tablet at 0902, Until Discontinu ed, Routine, Pain (scale 7-10) acetaminoph Yes 1{tbl} 1 tablet, Univers en-codeine 01-23 Oral, ity of (TYLENOL 14:02: Q6HPRN, [place] #3) 300-30 36 Starting Medic al mg tablet 1 01/23/21 Br anch tablet at 0902, Until Discontinu ed, Routine, Pain (scale 4-6) sodium 2020- No 30mmol 30 mmol, [facility] ers phosphate 01-23 IV ity of 30 mmol in 12:45: 16:59 [place], [place] NaCl 0.9% 00 :00 ONCE, 1 Medical (NS) 250 mL dose, Sat [facility] piggyback 01/23/21 at 0745, 250 mL digoxin 2020- No 250ug 250 mcg, [facility] ers (LANOXIN) 01-23 Intravenou ity of injection 01:15: 00:58 s, ONCE, 1 [place] 250 mcg 00 :00 dose, Fri Medical 01/22/21 at Branch 2015, Routine potassium 2020- No 40meq 40 mEq, Uni vers chloride 40 01-23 Intravenou i ty of mEq in 100 01:00: 04:58 s, ONCE, 1 [place] mL IVPB 00 :00 dose, Fri Medical 01/22/21 at Branch 2000, 100 mL digoxin 2020- No 250ug 250 mcg, Univ ers (LANOXIN) 01-22 Intravenou ity of injection 20:01: 20:06 s, ONCE, 1 [place] 250 mcg 00 :00 dose, Fri Medical 01/22/21 at Branch 1515, Routine digoxin 2020- No 250ug 250 mcg, Univ ers (LANOXIN) 01-22 Intravenou ity of injection 17:15: 16:15 s, ONCE, 1 [place] 250 mcg 00 :00 dose, Mon Medical 01/22/21 at Branch 1215, Routine furosemide 2020- No 20mg 20 mg, Univ ers (LASIX) 01-22 Slow IV ity of injection 17:15: 18:46 Push, [place] 20 mg 00 :00 ONCE, 1 Medical dose, Fri [place] 01/22/21 at 1215, Routine albumin 2020- No [...] [place] 250 mcg 00 :00 dose, [facility] Medical 01/22/21 at Branch 0915, Routine pantoprazol No 40mg 40 mg, Uni vers e 01-22 0501 Oral, ity of (PROTONIX) 14:00: 14:06 DAILY, [place] EC tablet 00 :55 First dose Medi joana 40 mg on Mon Branch 01/22/21 at 0900, Until Discontinu ed, Routine D5W-LR IV 2020- No 1000mL at 42 Univ ers infusion 01-22 mL/hr, IV ity o f 1,000 mL 13:15: 15:40 Infusion, [place] as 00 :21 CONTINUOUS Medical , Starting Branch Mon01/22/21 at 0815, Until Mon01/22/21 at 1040, EMBER digoxin No .5mg 500 mcg Univer s (LANOXIN) 01-22 (0.5 mg), ity of injection 11:29: 11:47 Intravenou [place] 500 mcg 00 :00 s, ONCE, 1 Medica l dose, Fri Branch 01/22/21 at 0630, Routine sodium No 30mmol 30 mmol, Univ ers phosphate 01-22 IV ity of 30 mmol in 10:24: 15:28 Piggy[place], [place] NaCl 0.9% 00 :00 ONCE, 1 Medical (NS) 250 mL dose, Mon [facility] piggyback 01/22/21 at 0530, 250 mL metoprolol No 12.5mg 12.5 mg, Univers tartrate 01-2230 Oral, ONCE ity of (LOPRESSOR) 09:13: 09:27 NOW, 1 [place] half tablet 00 :00 dose, Mon Med ical 12.5 mg 01/22/21 at Branch 0415, Routine calcium No 2g 2 g, IV Univer s gluconate 2 01-22 Infusion, it y of g in NaCl 09:09: 09:28 ONCE, 1 [place] 100 mL 00 :00 dose, Mon Medical (ISO-OSM) 01/22/21 at [facility] RTU IV 0415, infusion 2 Routine g furosemide No 20mg 20 mg, Univ ers (LASIX) 01-22 Slow IV ity of injection 08:39: 09:05 Push, [place] 20 mg 00 :00 ONCE, 1 Medical dose, [facility] 01/22/21 at 0345, Routine atorvastati No 80mg 80 mg, Uni vers n (LIPITOR) 01-22 Oral, QHS, i ty of tablet 80 02:00: 14:06 First dose [place] mg 00 :55 on [facility] 01/21/21 at Branch 2100, Until Discontinu ed, Routine metoprolol No 12.5mg 12.5 mg, Univers tartrate 01-22 Oral, BID, ity of (LOPRESSOR) 01:00: 15:21 First dose [place] half tablet 00 :01 (after Medica l 12.5 mg last Branch modificati on) on [facility] 01/21/21 at 2000, Until Discontinu ed, Routine clopidogreL No 75mg 75 mg, Uni vers (PLAVIX) 01-21 Oral, ity of tablet 75 22:00: 14:06 DAILY, [place] mg 00 :55 First dose Medical on [facility] 01/21/21 at 1700, Until Discontinu ed, Routine
member services representative approving Restricted medication : ESCOBAR CABRERA albumin No 25g 25 g, IV Unive rs (ALBUMINAR 01-21 Infusion, ity of 25%) 25 % 15:45: 14:39 ONCE, 1 [place] injection 00 :00 dose, [facility] Medic al 25 g 01/21/21 at Branch 1045, 100 mL
Marie cation: NON-APPROV ED INDICATION - PHARMACY WILL CALL ORDERING PROVIDER<b r>Specific Indication : post cabg
Fa culty Requesting Approval: ANATOLIY CARDONA sennosides No 8.6mg 8.6 mg, Un mark (SENOKOT) 01-21 Oral, ity of tablet 8.6 14:00: 14:06 DAILY, [place] mg 00 :55 First dose Medical on [facility] Branch 01/21/21 at 0900, Until Discontinu ed, Routine docusate No 100mg 100 mg, Univ ers (COLACE) 01-21 Oral, ity of capsule 100 14:00: 14:06 DAILY, [place] mg 00 :55 First dose Medical on [facility] Branch 01/21/21 at 0900, Until Discontinu ed, Routine magnesium No 2g 2 g, IV Univ ers sulfate in 01-21 Piggyback, it y of water 2 13:00: 12:43 ONCE, 1 [place] gram/50 mL 00 :00 dose, [facility] Medi joana (4 %) 01/21/21 at Branch infusion 2 0800, g Routine aspirin No 81mg 81 mg, Univers chewable 01-21 Oral, ity of tablet 81 06:30: 14:06 DAILY, [place] mg 00 :55 First dose Medical on [facility] Branch 01/21/21 at 0130, Until Discontinu ed, Routine pantoprazol No 40mg 40 mg, IV Univers e 01-21 Piggyback, ity of (PROTONIX) 05:00: 13:07 Q24H, [place] 40 mg in 00 :02 First dose Medic al NaCl 0.9% on [facility] Branch (NS) 100 mL 01/21/21 at MINI-BAG 0000, Until Discontinu ed, 100 mL NaCl 0.9% 2020- No 250mL at 999 Univ ers (NS) bolus 01-21 mL/hr, 250 it y of infusion 04:07: 04:14 mL, IV [place] 250 mL 00 :00 Piggyback, Medical ONCE, 1 Branch dose, [facility] 01/20/21 at 2315, STAT potassium 2020- No 15mmol IV Unive rs phosphate 01-21 Piggyback, ity of 15 mmol in 04:00: 07:22 ONCE, 1 [place] as NaCl 0.9% 00 :00 dose, Mon Medic al (NS) 150 mL 01/20/21 at [facility] piggyback 2300, 150 mL lidocaine 2020- No 100mg 100 mg, Uni vers 2% 01-21 Slow IV ity of (XYLOCAINE) 03:45: 03:39 Push, [place] syringe 100 00 :00 ONCE, 1 Medic al mg dose, [facility] Branch 01/20/21 at 2245, Routine calcium 2020- No 2g 2 g, IV Univer s gluconate 2 01-21 Infusion, it y of g in NaCl 01:00: 01:18 ONCE, 1 [place] 100 mL 00 :00 dose, [facility] Medical (ISO-OSM) 01/20/21 at [facility] RTU IV 2000, infusion 2 Routine g [...] 2020- No 150ug 150 mcg, Uni vers RADON INSPECTOR (5 01-20 04-30 Intravenou ity of mcg/mL [...] an adequate hemodynami c response. D5W-LR IV No 1000mL at 50 Univ ers infusion 01-20 04-30 mL/hr, IV ity o f 1,000 mL 22:30: 13:01 Infusion, [place] as 00 :26 CONTINUOUS Medical , Starting Branch Mon01/20/21 at 1730, Until Mon01/22/21 at 0801, EMBER ceFAZolin No 2000mg 2 g (2,000 Univers in [...] 4mg 4 mg, Slow Univers (ZOFRAN 01-20 05-01 IV Push, ity of (PF)) 22:26: 14:06 Q6HPRN, [place] injection 4 42 :55 Starting Medi joana mg Mon [place] 01/20/21 at 1726, Until 01/23/21 at 0906, EMBER, Nausea and Vomiting (N/V) acetaminoph 2020- No 2{tbl} 2 tablet, Univers en-codeine 01-20 Oral, ity of (TYLENOL 22:23: 14:06 Q4HPRN, [place] #3) 300-30 25 :55 Starting Medic al mg tablet 2 Wed Branch tablet 01/20/21 at 1723, Until 01/23/21 at 0906, Routine, Pain (scale 7-10) metoprolol 2020- No [id number] 25mg 25 mg, Univers tartrate 01-20 Oral, ONCE ity of (LOPRESSOR) 11:00: 11:49 NOW, 1 [place] tablet 25 00 :00 dose, Wed Medic al mg 01/20/21 at Branch 0600, Routine, DSU Pre-op aspirin 81 2020- No NSTEMI 81mg Take 1 Un mark mg chewable 01-10 (non-ST tablet by ity of tablet 00:00: 00:00 elevated mouth [place] 00 :00 myocardial daily for Medi joana infarction) 90 days. Bran ch pantoprazol 2020- No NSTEMI 40mg Take 1 U nivers e 40 mg EC 01-10 (non-ST tablet by ity of tablet 00:00: 00:00 elevated mouth [place] 00 :00 myocardial daily for Medi joana infarction) 90 days. Bran ch atorvastati 2020- No NSTEMI 80mg Take 1 U nivers n 80 mg 01-09 (non-ST tablet by ity of tablet 00:00: 00:00 elevated mouth [place] 00 :00 myocardial every Medical infarction) evening Branc h for 90 days. metoprolol 2020- No [...] Medi joana infarction) 90 days. Mike bridges lisinopriL NSTEMI 2.5mg Take 1 U nivers 2.5 mg 01-09- (non-ST tablet by ity of tablet 00:00: 00:00 elevated mouth [place] 00 :00 myocardial daily for Medi joana infarction) 90 days. Mike Immunizations Ordered Filled Immunization Date Status Comments [facility] Immunization Name Name SARS-COV-2 COVID-19 2021-08-27 Completed Unive rsity of MODERNA BOOSTER 00:00:00 [facility] VACCINE Branch SARS-COV-2 COVID-19 2020-12-20 Completed Unive rsity of MODERNA VACCINE 00:00:00 [facility] SARS-COV-2 COVID-19 2020-12-20 Completed Unive rsity of MODERNA VACCINE 00:00:00 [facility] SARS-COV-2 COVID-19 2020-11-22 Completed Unive rsity of MODERNA VACCINE 00:00:00 [facility] SARS-COV-2 COVID-19 2020-11-22 Completed Unive rsity of MODERNA VACCINE 00:00:00 [facility] Influenza Virus 2020-08-08 Completed Universit y of Vaccine 00:00:00 [facility] Influenza Virus 2020-08-08 Completed Universit y of Vaccine 00:00:00 [facility] Vital Signs Vital Name Observation Time Observation Value Comments Source Systolic blood 2021-10-12 21:43:00 131 mm[Hg] Univer sity of pressure [facility] Diastolic blood 2021-10-12 21:43:00 83 mm[Hg] Unive rsity of pressure [facility] Heart rate 2021-10-12 21:43:00 78 /min [facility] Body height 2021-10-12 21:43:00 162.6 cm [facility] Body weight 2021-10-12 21:43:00 50.032 kg [facility] BMI 2021-10-12 21:43:00 18.93 kg/m2 [facility] Oxygen saturation in 2021-10-12 21:43:00 100 /min [place] of Arterial blood by [facility] Pulse oximetry Branch Systolic blood 2021-01-28 15:45:00 105 mm[Hg] Univer sity of pressure [facility] Diastolic blood 2021-01-28 15:45:00 62 mm[Hg] Unive rsity of [facility] Heart rate 2021-01-28 15:45:00 104 /min [facility] Body temperature 2021-01-28 12:50:00 36.61 Nora [facility] in 2021-01-28 12:50:00 96 /min [facility] Arterial blood by [facility] Pulse oximetry Branch Body weight 2021-01-28 04:00:00 51.393 kg [facility] BMI 2021-01-28 04:00:00 18.29 kg/m2 [facility] Respiratory rate 2021-01-28 00:00:00 16 /min [facility] Body height 2021-01-20 11:31:00 167.6 cm [facility] Procedures Procedure Date / Time Performing Clinician Source Performed POCT GLUCOSE 2021-01-28 13:37:00 Escobar Cabrera [facility] (AUTOMATED) [facility] POCT GLUCOSE 2021-01-28 01:37:00 Escobar Cabrera [facility] (AUTOMATED) [facility] POCT GLUCOSE 2021-01-27 23:27:00 Escobar Cabrera [facility] (AUTOMATED) [facility] POCT GLUCOSE 2021-01-27 18:43:00 [facility] Cab[facility] Branch PHOSPHORUS 2021-01-27 14:35:00 Ju Recio [facility] MAGNESIUM 2021-01-27 14:35:00 Ju Recio [facility] BASIC METABOLIC PANEL 2021-01-27 14:35:00 Ju Recio [facility] (NA, K, CL, CO2, Medical Branch GLUCOSE, BUN, CREATININE, CA) POCT GLUCOSE 2021-01-27 14:24:00 Escobar Cabrera [facility] (AUTOMATED) Medical Branch POCT GLUCOSE 2021-01-27 01:11:00 [facility] ([facility]) Medical Branch PHOSPHORUS 2021-01-26 09:18:00 Curtis [facility] MAGNESIUM 2021-01-26 09:18:00 Curtis [facility] BASIC METABOLIC PANEL 2021-01-26 09:18:00 Curtis [facility] (NA, K, CL, CO2, Medical Branch GLUCOSE, BUN, CREATININE, CA) CBC WITH DIFF 2021-01-26 09:18:00 Curtis [facility] [place] BASIC METABOLIC PANEL 2021-01-26 05:24:00 Bairon [facility] (NA, K, CL, CO2, Medical Branch GLUCOSE, BUN, CREATININE, CA) CBC WITH DIFF 2021-01-26 05:24:00 [facility] POCT GLUCOSE 2021-01-26 01:12:00 Escobar Cabrera [facility] (AUTOMATED) [facility] Branch POCT GLUCOSE 2021-01-25 21:52:00 Escobar [facility] (AUTOMATED) [facility] Branch POCT GLUCOSE 2021-01-25 14:00:00 Escobar [facility] (AUTOMATED) [facility] XR CHEST 2 VW 2021-01-25 10:25:24 Swati Lynch [facility] HB ECG ROUTINE & RHYTHM 2021-01-25 08:48:34 [facility] STRIP Medical Branch MAGNESIUM 2021-01-25 08:32:00 [facility]IC MET[facility]OLIC PANEL 2021-01-25 08:32:00 [facility] (NA, K, CL, CO2, [facility] GLUCOSE, BUN, CREATININE, CA) POCT GLUCOSE 2021-01-24 17:42:00 Escobar [facility] (AUTOMATED) Medical Branch DIGOXIN 2021-01-24 15:09:00 Syed, [facility] POCT GLUCOSE 2021-01-24 13:53:00 Escobar [facility] (AUTOMATED) [facility] BASIC METABOLIC PANEL 2021-01-24 10:06:00 [facility] (NA, K, CL, CO2, Medical Branch GLUCOSE, BUN, CREATININE, CA) CBC WITH DIFF 2021-01-24 10:06:00 Syed [facility] POCT GLUCOSE 2021-01-24 01:55:00 Escobar [facility] (AUTOMATED) [facility] POCT GLUCOSE 2021-01-23 23:33:00 Escobar [facility] (AUTOMATED) [facility] POCT GLUCOSE 2021-01-23 18:31:00 Escobar [facility] (AUTOMATED) [facility] PHOSPHORUS 2021-01-23 09:22:00 Jenaro [facility] MAGNESIUM 2021-01-23 09:22:00 Jenaro [facility] BASIC METABOLIC PANEL 2021-01-23 09:22:00 [facility] (NA, K, CL, CO2, Medical Branch GLUCOSE, BUN, CREATININE, CA) CBC WITHOUT DIFF 2021-01-23 09:22:00 Jenaro [facility] XR CHEST 1 VW 2021-01-23 08:15:00 Jenaro [facility] CBC WITHOUT DIFF 2021-01-23 01:47:00 Jenaro [facility] POTASSIUM SERUM 2021-01-22 22:00:00 Francisco Rolon [facility] PREPARE PACKED RBC 2021-01-22 17:04:53 Mil Yousif [facility] HB ECG ROUTINE & RHYTHM 2021-01-22 09:11:17 Deni Dale [facility] PHOSPHORUS 2021-01-22 09:04:00 Anatoliy [facility] MAGNESIUM 2021-01-22 09:04:00 Brendan [facility] BASIC METABOLIC PANEL 2021-01-22 09:04:00 Anatoliy Cardona [facility] (NA, K, CL, CO2, Medical Branch GLUCOSE, BUN, CREATININE, CA) CBC WITH DIFF 2021-01-22 09:04:00 Anatoliy [facility] XR CHEST 1 2021-01-22 07:57:00 Brendan [facility] HB ECG ROUTINE & RHYTHM 2021-01-21 12:26:52 [facility] ABG+COOX+NA+K+GLU+CA2+ 2021-01-21 10:09:00 Benji Olvera [facility] PHOSPHORUS 2021-01-21 10:08:00 [facility] 2021-01-21 10:08:00 [facility] BASIC METABOLIC PANEL 2021-01-21 10:08:00 Benji Olvera [facility] (NA, K, CL, CO2, [facility] GLUCOSE, BUN, CREATININE, CA) CBC WITH DIFF 2021-01-21 10:08:00 [facility] PROT[facility] / INR 2021-01-21 10:08:00 Benji Olvera [facility] XR CHEST 1 2021-01-21 07:24:00 [facility] CBC WITHOUT DIFF 2021-01-21 03:09:00 [facility] CBC WITHOUT DIFF 2021-01-21 01:25:00 [facility] ABG+COOX+NA+K+GLU+CA2+ 2021-01-21 01:25:00 Benji Olvera [facility] XR CHEST 1 VW 2021-01-20 22:55:00 Red Zohaib [facility] XR ABDOMEN 1 2021-01-20 22:49:00 [facility] 1 VW 2021-01-20 22:49:00 [facility] ABG+COOX+NA+K+GLU+CA2+ 2021-01-20 22:44:00 [facility] 2021-01-20 22:42:00 [facility] 2021-01-20 22:42:00 [facility] BASIC METABOLIC PANEL 2021-01-20 22:42:00 Benji Olvera, [facility] (NA, K, CL, CO2, [facility] GLUCOSE, BUN, CREATININE, CA) CBC WITH DIFF 2021-01-20 22:42:00 [facility] MRSA / MSSA SCREEN BY 2021-01-20 22:42:00 [facility] TRANSFUSE PLATELETS 2021-01-20 22:18:54 Samples, [facility] TRANSFUSE PLATELETS 2021-01-20 22:00:18 Samples, [facility] PREPARE PLATELETS 2021-01-20 21:54:03 Samples, [facility] CBC WITH DIFF 2021-01-20 21:47:17 Escobar Cabrera [facility] PROTHROMBIN TIME / INR 2021-01-20 21:47:17 Escobar Cabrera [facility] ACTIVATED PARTIAL 2021-01-20 21:47:17 Escobar Cabrera [facility] FIBRINOGEN 2021-01-20 21:47:17 Escobar Cabrera [facility] ABG+COOX+NA+K+GLU+CA2+ 2021-01-20 21:24:00 Escobar Cabrera [facility] TRANSFUSE PACKED RBC 2021-01-20 21:12:39 Samples, [facility] TRANSFUSE PACKED RBC 2021-01-20 21:09:33 Samples, [facility] ACUTE CARE 2021-01-20 21:04:00 Escobar Cabrera [facility] ARTERIAL [facility] POCT ACT HIGH RANGE 2021-01-20 21:01:00 Escobar Cabrera [facility] TRANSFUSE PACKED RBC 2021-01-20 20:25:19 Samples, [facility] ACUTE CARE 2021-01-20 20:21:00 Escobar Cabrera [facility] TRANSFUSE PACKED RBC 2021-01-20 20:06:11 Samples, [facility] ACUTE CARE 2021-01-20 19:25:00 Escobar Cabrera [facility] ACUTE CARE 2021-01-20 18:59:00 Escobar Cabrera [facility] POCT ACT HIGH RANGE 2021-01-20 18:52:00 Escobar Cabrera [facility] PREPARE PACKED RBC 2021-01-20 18:06:15 Samples, [facility] ACUTE CARE 2021-01-20 17:29:00 Escobar Cabrera [facility] PREPARE PACKED RBC 2021-01-20 17:16:28 Juliana Vinson [facility] CORONARY ARTERY BYPASS 2021-01-20 16:32:00 Escobar Cabrera [facility] GRAFT [facility] ENDOSCOPIC VEIN HARVEST 2021-01-20 16:32:00 Escobar Cabrera [facility] CBC WITH DIFF 2021-01-20 13:27:00 Juliana Vinson [facility] ABORH CONFIRMATION 2021-01-20 13:27:00 Escobar Cabrera [facility] HB ABO GROUPING 2021-01-20 12:20:00 Juliana Vinson [facility] BASIC METABOLIC PANEL 2021-01-20 12:17:00 Juliana Vinson [facility] (NA, K, CL, CO2, Medical Branch GLUCOSE, BUN, CREATININE, CA) PROTHROMBIN TIME / INR 2021-01-20 12:17:00 [facility] 2021-01-20 12:17:00 Juliana Vinson [facility] HB ECG ROUTINE & RHYTHM 2021-01-20 11:40:07 Juliana Vinson [facility] Plan of Care Planned Activity Planned Date Details Comments Source Future Scheduled 2022-01-20 Depression screening Uni versity of Test 00:00:00 (procedure) [code = [facility] dical 043523426] Branch Future Scheduled 2003 Medicare Annual Universi ty of Test 00:00:00 Wellness Visit [facility] (procedure) [code = Branch 178840113346417] Future Scheduled 2003 PNEUMOCOCCAL University of Test 00:00:00 VACCINES 65+ (1 of 1 [facility] edical - PPSV23) [code = Branch PNEUMOCOCCAL VACCINES 65+ (1 of 1 - PPSV23)] Future Scheduled 1988 Zoster Recombinant Unive rsity of Test 00:00:00 Vaccine (SHINGRIX) [facility] ical (1 of 2) [code = Branch Zoster Recombinant Vaccine (SHINGRIX) (1 of 2)] Future Scheduled 1957 DTaP,Tdap,and Td Univers ity of Test 00:00:00 Vaccines (1 - Tdap) [facility] dical [code = Branch DTaP,Tdap,and Td Vaccines (1 - Tdap)] Future Scheduled ABG+COOX+NA+K+GLU+CA EVERY 4 HOURS Un iversity of Test 2+ (While Intubated) (START TIME [facility] edical [code = 55152] ADJUSTABLE) for Branch 24 Hours starting 01/20/2021 until 01/21/2021, 3 completed Encounters Start End Encounter Admission Attending Care Care Encounter Source Date/Time Date/Time Type Type Clinicians Facility Department ID 2021-10-12 2021-10-12 SARAH Shipman [id number] 15:40:00 17:01:22 Visit Maurilio Warply [id number] ity of [place]IV[place] 4.2.7.2.686 [place] as PABLO?BLEA [id number] Me dical KNEY 092 [facility] OFFICE BUILDING 2021-02-24 2021-02-24 Transition Karthikeyan Fierro [id number] 00:00:00 00:00:00 of Care Kade Marshall [id number] [place] 4.2.7.2.686 [id number] 2021-02-23 2021-02-23 Urgent Provider, [facility] [id number] 15:56:41 16:41:19 Care [facility] [id number] Care [place] 4.2.7.2.686 [facility] [id number] nal 044 Office [address] One 2021-02-20 2021-02-21 Emergency Kassidy Del Toro [facility] [id number] 16:49:00 15:19:00 Catracho Husain 350.1.13.10 [place] 4.2.7.2.686 [place] [id number] 1 2021-02-11 2021-02-11 Office FEI Cabrera [id number] 12:54:32 13:57:50 Visit [facility] 350.1.13.10 [facility] 4.2.7.2.686 [id number] Results Test Description Test Time Test Comments Results Result Comments Source POCT GLUCOSE (AUTOMATED) 2021-01-28 13:37:42 Test Item Value Reference Range Interpretation Comme nts POCT GLU (test code = 0695191281) 124 mg/dL 70-110 H Notified Provider Lab Interpretation (test code = 41675-0) Abnormal [facility] GLUCOSE (AUTOMATED)2021-01-28 01:38:13 Test Item Value Reference Range Interpretation Comments POCT GLU (test code = 8929833161) 130 mg/dL 70-110 H Lab Interpretation (test code = Abnormal 29495-6) [facility] GLUCOSE (AUTOMATED)2021-01-27 23:28:05 Test Item Value Reference Range Interpretation Comments POCT GLU (test code = 95 mg/dL 70-110 Notifi ed Provider [id number]) Lab Interpretation (test Normal code = 32593-1) [facility] GLUCOSE (AUTOMATED)2021-01-27 18:51:48 Test Item Value Reference Range Interpretation Comments POCT GLU (test code = 4568374354) 95 mg/dL 70-110 Lab Interpretation (test code = Normal 30395-4) [facility] METABOLIC PANEL (NA, K, CL, CO2, GLUCOSE, BUN, CREATININE, CA)2021-01-27 15:12:56 Test Item Value Reference Range Interpretation Comments NA (test code = 138 mmol/L 135-145 1273454925) K (test code = 4.0 mmol/L 3.5-5.0 1453955600) CL (test code = 103 mmol/L 98-108 2805580893) CO2 TOTAL (test code = 29 mmol/L 23-31 6320020828) AGAP (test code = 6 2-16 8473576062) BUN (test code = 13 mg/dL 7-23 9382956823) GLUCOSE (test code = 135 mg/dL 70-110 H 5153630666) CREATININE (test code = 0.55 mg/dL 0.60-1.25 L 9683665371) CALCIUM (test code = 8.2 mg/dL 8.6-10.6 L 3609315257) eGFR (test code = 142.6 mL/min/1.73m2 3965205636) CARLIE (test code = CARLIE) Association of [...] tests). Lab Interpretation Abnormal (test code = 18379-5) [facility] 15:12:56 Test Item Value Reference Range Interpretation Comments MAGNESIUM (test code = 7533787717) 2.2 mg/dL 1.7-2.4 Lab Interpretation (test code = Normal 84081-0) [facility] 15:12:56 Test Item Value Reference Range Interpretation Comments PHOSPHORUS (test code = 4005963151) 2.2 mg/dL 2.5-5.0 L Lab Interpretation (test code = Abnormal 55949-6) [facility]2021-01-27 14:39:58 Test Item Value Reference Range Interpretation Comments POCT GLU (test code = 140 mg/dL 70-110 H Notifi ed Provider [id number]) Lab Interpretation (test Abnormal code = 13967-8) [facility]+NA+K+GLU+CA2+2021-01-27 04:22:04 Test Item Value Reference Range Interpretation Comments PH (test code = 2) 7.40 7.35-7.45 PCO2 (test code = 30 See_Comment L [Automat ed message] 4304302947) The system [employer] generated this result transmit thuy reference range : 35 - 45 mmHg. The reference range was not used to interpret this result as normal/abnormal . PO2 (test code = 332 See_Comment H [Automated message] 5108818146) The system [employer] generated this result transmit thuy reference range : 80 - 100 mmHg. The reference range was not used to interpret this result as normal/abnormal . HCO3 (test code = 18 See_Comment L [Automate d message] 5258898040) The system [employer] generated this result transmit thuy reference range : 22 - 26 mEq/L. The reference range was not used to interpret this result as normal/abnormal . BE (test code = -5.8 See_Comment L [Automated message] 0059530073) The system [employer] generated this result transmit thuy reference range : -3.0 - 3.0 mEq/ L. The reference r jaswinder was not used to interpret this result as normal/abnormal . THB (test code = 8.1 g/dL 13.5-18.0 LL 2222229370) %O2HB (test code = 99.5 % 94.0-99.0 H 8430137418) %COHB ART (test code = 0.0 % 0.0-1.5 1977268225) %METHB ART (test code = 0.1 % 0.4-1.5 L 6680993277) VOL%O2 ART (test code = 12.2 % 15.0-23.0 L 0535086826) NA (test code = 133 mmol/L 135-145 L 0094085580) K+ (test code = 4.4 mmol/L 3.5-5.0 9189261239) AC CA IONZ (test code = 5.10 mg/dL 4.50-5.30 5729447835) GLUCOSE (test code = 151 mg/dL 70-110 H 7700933015) Lab Interpretation Abnormal (test code = 92123-4) [facility]2021-01-27 01:12:43 Test Item Value Reference Range Interpretation Comments POCT GLU (test code = 8204562756) 133 mg/dL 70-110 H Lab Interpretation (test code = Abnormal 04225-9) [facility]2021-[facility]-04 10:02:04 Test Item Value Reference Range Interpretation Comments MAGNESIUM (test code = 4896948816) 2.3 mg/dL 1.7-2.4 Lab Interpretation (test code = Normal 17046-0) [facility]21-[facility] 10:02:04 Test Item Value Reference Range Interpretation Comments PHOSPHORUS (test code = 1734593721) 1.3 mg/dL 2.5-5.0 L Lab Interpretation (test code = Abnormal 97771-3) [facility] (NA, K, CL, CO2, GLUCOSE, BUN, CREATININE, CA)2021-01-26 10:02:03 Test Item Value Reference Range Interpretation Comments NA (test code = 137 mmol/L 135-145 9958349785) K (test code = 3.8 mmol/L 3.5-5.0 7983074168) CL (test code = 102 mmol/L 98-108 3324366649) CO2 TOTAL (test code = 30 mmol/L 23-31 2194692871) AGAP (test code = 5 2-16 2164414803) BUN (test code = 16 mg/dL 7-23 4998085820) GLUCOSE (test code = 98 mg/dL 70-110 0418481114) CREATININE (test code = 0.51 mg/dL 0.60-1.25 L 9820402712) CALCIUM (test code = 7.9 mg/dL 8.6-10.6 L 8152280150) eGFR (test code = 155.6 mL/min/1.73m2 6382021462) CARLIE (test code = CARLIE) Association of [...] tests). Lab Interpretation Abnormal (test code = 46283-0) [facility] WITH [id number] 09:33:39 Test Item Value Reference Range Interpretation Comments WBC (test code = 6.26 See_Comment [Automated 4989-2) message] The sy stem which generated this result transmitted reference range : 4.20 - 10.70 10*3/?L. The reference range was not used to interpret this result as normal/abnormal . RBC (test code = 2.70 See_Comment L [Automated 516-0) message] The sy stem which generated this [...] (test code = 53.0 fL 38.5-51.6 H 60038-2) RDW-CV (test code = 15.0 % 12.1-15.4 788-0) PLT (test code = 196 See_Comment [Automated 777-3) message] The sy stem which generated this result transmitted reference range : 150 - 328 10*3/ ?L. The reference r jaswinder was not used to interpret this result as normal/abnormal . MPV (test code = 10.1 fL 9.8-13.0 86453-1) NRBC/100 WBC (test 0.0 See_Comment [Automat ed code = 3907865217) message] The system which generated this result transmitted reference range : 0.0 - 10.0 /100 WBCs. The refer ence range was not u sed to interpret th is result as normal/abnormal . NRBC x10^3 (test code <0.01 See_Comment [Auto mated = 4028712772) message] The s ystem which generated this result transmitted reference range : 10*3/?L. The reference range was not used to interpret this result as normal/abnormal . GRAN MAT (NEUT) % 70.2 % (test code = 770-8) IMM GRAN % (test code 0.60 % = 7507939361) LYMPH % (test code = 17.7 % 736-9) MONO % (test code = 9.6 % 5905-5) EOS % (test code = 1.4 % 713-8) BASO % (test code = 0.5 % 706-2) GRAN MAT x10^3(ANC) 4.39 10*3/uL 1.99-6.95 (test code = 7716249900) IMM GRAN x10^3 (test 0.04 10*3/uL 0.00-0.06 code = 7468536428) LYMPH x10^3 (test code 1.11 10*3/uL 1.09-3.23 = 731-0) MONO x10^3 (test code 0.60 10*3/uL 0.36-1.02 = 742-7) EOS x10^3 (test code = 0.09 10*3/uL 0.06-0.53 711-2) BASO x10^3 (test code 0.03 10*3/uL 0.01-0.09 = 704-7) Lab Interpretation Abnormal (test code = 14878-8) [facility] METABOLIC PANEL (NA, K, CL, CO2, GLUCOSE, BUN, CREATININE, CA)2021-01-26 06:12:45 Test Item Value Reference Range Interpretation Comments NA (test code = 137 mmol/L 135-145 1442479437) K (test code = 4.1 mmol/L 3.5-5.0 9643788156) CL (test code = 102 mmol/L 98-108 2437185742) CO2 TOTAL (test code = 31 mmol/L 23-31 0448157445) AGAP (test code = 4 2-16 3349868834) BUN (test code = 17 mg/dL 7-23 5115982326) GLUCOSE (test code = 140 mg/dL 70-110 H 5923583744) CREATININE (test code = 0.61 mg/dL 0.60-1.25 1406270219) CALCIUM (test code = 8.3 mg/dL 8.6-10.6 L 8072529659) eGFR (test code = 126.6 mL/min/1.73m2 2969399780) CARLIE (test code = CARLIE) Association of [...] tests). Lab Interpretation Abnormal (test code = 03027-2) [facility] WITH [id number] 05:39:20 Test Item Value Reference Range Interpretation Comments WBC (test code = 6.64 See_Comment [Automated 6690-2) message] The sy stem which generated this result transmitted reference range : 4.20 - 10.70 10*3/?L. The reference range was not used to interpret this result as normal/abnormal . RBC (test code = 2.85 See_Comment L [Automated 789-8) message] The sy [...] (test code = 52.5 fL 38.5-51.6 H 93842-5) RDW-CV (test code = 15.1 % 12.1-15.4 788-0) PLT (test code = 223 See_Comment [Automated 777-3) message] The sy stem which generated this result transmitted reference range : 150 - 328 10*3/ ?L. The reference r jaswinder was not used to interpret this result as normal/abnormal . MPV (test code = 9.8 fL 9.8-13.0 45668-3) NRBC/100 WBC (test 0.0 See_Comment [Automat ed code = 7336952166) message] The system which generated this result transmitted reference range : 0.0 - 10.0 /100 WBCs. The refer ence range was not u sed to interpret th is result as normal/abnormal . NRBC x10^3 (test code <0.01 See_Comment [Auto mated = 6357028078) message] The s ystem which generated this result transmitted reference range : 10*3/?L. The reference range was not used to interpret this result as normal/abnormal . GRAN MAT (NEUT) % 74.6 % (test code = 770-8) IMM GRAN % (test code 0.60 % = 8171801051) LYMPH % (test code = 15.2 % 736-9) MONO % (test code = 8.3 % 5905-5) EOS % (test code = 0.8 % 713-8) BASO % (test code = 0.5 % 706-2) GRAN MAT x10^3(ANC) 4.96 10*3/uL 1.99-6.95 (test code = 6899511154) IMM GRAN x10^3 (test 0.04 10*3/uL 0.00-0.06 code = 0612459811) LYMPH x10^3 (test code 1.01 10*3/uL 1.09-3.23 L = 731-0) MONO x10^3 (test code 0.55 10*3/uL 0.36-1.02 = 742-7) EOS x10^3 (test code = 0.05 10*3/uL 0.06-0.53 L 711-2) BASO x10^3 (test code 0.03 10*3/uL 0.01-0.09 = 704-7) Lab Interpretation Abnormal (test code = 02102-6) [facility] GLUCOSE (AUTOMATED)2021-01-26 01:14:28 Test Item Value Reference Range Interpretation Comments POCT GLU (test code = 8960116375) 131 mg/dL 70-110 H Lab Interpretation (test code = Abnormal 16128-3) [facility] GLUCOSE (AUTOMATED)2021-01-25 21:53:13 Test Item Value Reference Range Interpretation Comments POCT GLU (test code = 4056908851) 141 mg/dL 70-110 H Lab Interpretation (test code = Abnormal 51433-8) [facility]2021-01-25 14:01:24 Test Item Value Reference Range Interpretation Comments POCT GLU (test code = 7724922041) 104 mg/dL 70-110 Lab Interpretation (test code = Normal 61906-8) [facility] [id number] 13:48:12[facility], Radiant Results Inft User - 01/25/2021 [...] and basilar edema noted previously have resolved. [facility] 2 Views - Upright ( PA, LAT) on POD # 3 2021-01-25 13:47:02 Interval removal of right central venous catheter. Small left pleural effusion. Preliminary Report Dictated by Resident: Adam Armstrong MD., have reviewed this study and agree withthe above report.[facility], Radiant Results Inft User - [...] reviewed this study and agree withthe above report.[facility] METABOLIC PANEL (NA, K, CL, CO2, GLUCOSE, BUN, CREATININE, CA)2021-01-25 09:00:49 Test Item Value Reference Range Interpretation Comments NA (test code = 138 mmol/L 135-145 9201558028) K (test code = 4.1 mmol/L 3.5-5.0 9767007265) CL (test code = 105 mmol/L 98-108 3605213948) CO2 TOTAL (test code = 31 mmol/L 23-31 6086820760) AGAP (test code = 2 2-16 2122349479) BUN (test code = 17 mg/dL 7-23 3979618081) GLUCOSE (test code = 92 mg/dL 70-110 2374509672) CREATININE (test code = 0.47 mg/dL 0.60-1.25 L 1120272453) CALCIUM (test code = 8.0 mg/dL 8.6-10.6 L 1545547487) eGFR (test code = 171.0 mL/min/1.73m2 9039865217) CARLIE (test code = CARLIE) Association of [...] tests). Lab Interpretation Abnormal (test code = 21787-3) [facility] 09:00:49 Test Item Value Reference Range Interpretation Comments MAGNESIUM (test code = 9696290500) 2.2 mg/dL 1.7-2.4 Lab Interpretation (test code = Normal 92298-0) [facility] GLUCOSE (AUTOMATED)2021-01-24 17:43:33 Test Item Value Reference Range Interpretation Comments POCT GLU (test code = 119 mg/dL 70-110 H Notifi ed Provider 7058453783) Lab Interpretation (test Abnormal code = 23316-9) [facility] 17:00:33 Test Item Value Reference Range Interpretation Comments DIGOXIN (test code = 2.2 ng/mL 0.8-1.6 H 1468628163) CARLIE (test code = CARLIE) Arrythmias: 1.5 - 2.0 ng/mLToxic Range: Greater than or equal to 2.4 ng/mL Lab Interpretation (test Abnormal code = 55446-8) [facility]2021-01-24 13:53:55 Test Item Value Reference Range Interpretation Comments POCT GLU (test code = 94 mg/dL 70-110 Notifi ed Provider 8879590955) Lab Interpretation (test Normal code = 63346-1) [facility] Metabolic Panel (NA, K, CL, CO2, GLUCOSE, BUN, CREATININE, CA) on POD # 10:55:15 Test Item Value Reference Range Interpretation Comments NA (test code = 139 mmol/L 135-145 7543364325) K (test code = 4.3 mmol/L 3.5-5.0 1957175979) CL (test code = 104 mmol/L 98-108 8720655326) CO2 TOTAL (test code = 32 mmol/L 23-31 H 5115449963) AGAP (test code = 3 2-16 0781849571) BUN (test code = 15 mg/dL 7-23 0586693710) GLUCOSE (test code = 96 mg/dL 70-110 2859393042) CREATININE (test code = 0.59 mg/dL 0.60-1.25 L 4759242306) CALCIUM (test code = 8.2 mg/dL 8.6-10.6 L 7902006486) eGFR (test code = 131.5 mL/min/1.73m2 7755761397) CARLIE (test code = CARLIE) Association of [...] tests). Lab Interpretation Abnormal (test code = 24934-8) [facility] with Differential on POD # [id number] 10:25:49 Test Item Value Reference Range Interpretation Comments WBC (test code = 6.96 See_Comment [Automated 6812-2) message] The sy stem which generated this result transmitted reference range : 4.20 - 10.70 10*3/?L. The reference range was not used to interpret this result as normal/abnormal . RBC (test code = 2.71 See_Comment L [Automated 209-8) message] The sy [...] (test code = 54.5 fL 38.5-51.6 H 10520-6) RDW-CV (test code = 15.4 % 12.1-15.4 788-0) PLT (test code = 180 See_Comment [Automated 917-3) message] The sy stem which generated this result transmitted reference range : 150 - 328 10*3/ ?L. The reference r jaswinder was not used to interpret this result as normal/abnormal . MPV (test code = 10.2 fL 9.8-13.0 63045-1) NRBC/100 WBC (test 0.0 See_Comment [Automat ed code = 9506638693) message] The system which generated this result transmitted reference range : 0.0 - 10.0 /100 WBCs. The refer ence range was not u sed to interpret th is result as normal/abnormal . NRBC x10^3 (test code <0.01 See_Comment [Auto mated = 7874563130) message] The s ystem which generated this result transmitted reference range : 10*3/?L. The reference range was not used to interpret this result as normal/abnormal . GRAN MAT (NEUT) % 77.5 % (test code = 770-8) IMM GRAN % (test code 0.30 % = 3250495910) LYMPH % (test code = 11.1 % 736-9) MONO % (test code = 9.8 % 5905-5) EOS % (test code = 0.9 % 713-8) BASO % (test code = 0.4 % 706-2) GRAN MAT x10^3(ANC) 5.40 10*3/uL 1.99-6.95 (test code = 4795598042) IMM GRAN x10^3 (test <0.03 0.00-0.06 code = 6778581832) LYMPH x10^3 (test code 0.77 10*3/uL 1.09-3.23 L = 731-0) MONO x10^3 (test code 0.68 10*3/uL 0.36-1.02 = 742-7) EOS x10^3 (test code = 0.06 10*3/uL 0.06-0.53 711-2) BASO x10^3 (test code 0.03 10*3/uL 0.01-0.09 = 704-7) Lab Interpretation Abnormal (test code = 85706-0) [facility] GLUCOSE (AUTOMATED)2021-01-24 01:56:29 Test Item Value Reference Range Interpretation Comments POCT GLU (test code = 6609782915) 122 mg/dL 70-110 H Lab Interpretation (test code = Abnormal 90879-6) [facility] GLUCOSE (AUTOMATED)2021-01-23 23:34:50 Test Item Value Reference Range Interpretation Comments POCT GLU (test code = 114 mg/dL 70-110 H Notifi ed Provider [id number]) Lab Interpretation (test Abnormal code = 45850-6) [facility] GLUCOSE (AUTOMATED)2021-01-23 18:43:15 Test Item Value Reference Range Interpretation Comments POCT GLU (test code = 107 mg/dL 70-110 Notifi ed Provider [id number]) Lab Interpretation (test Normal code = 01927-5) [facility] METABOLIC PANEL (NA, K, CL, CO2, GLUCOSE, BUN, CREATININE, CA)2021-01-23 11:27:35 Test Item Value Reference Range Interpretation Comments NA (test code = 135 mmol/L 135-145 4867865943) K (test code = 4.4 mmol/L 3.5-5.0 2902858709) CL (test code = 103 mmol/L 98-108 3953557368) CO2 TOTAL (test code = 29 mmol/L 23-31 6259769562) AGAP (test code = 3 2-16 6448674431) BUN (test code = 14 mg/dL 7-23 3138199208) GLUCOSE (test code = 95 mg/dL 70-110 0806023596) CREATININE (test code = 0.53 mg/dL 0.60-1.25 L 7887082370) CALCIUM (test code = 8.0 mg/dL 8.6-10.6 L 2983541984) eGFR (test code = 148.8 mL/min/1.73m2 1897663731) CARLIE (test code = CARLIE) Association of [...] tests). Lab Interpretation Abnormal (test code = 73078-4) [facility] 11:27:35 Test Item Value Reference Range Interpretation Comments MAGNESIUM (test code = 6336128880) 2.2 mg/dL 1.7-2.4 Lab Interpretation (test code = Normal 32082-4) [facility]2021[facility] 11:27:35 Test Item Value Reference Range Interpretation Comments PHOSPHORUS (test code = 9815482457) 1.8 mg/dL 2.5-5.0 L Lab Interpretation (test code = Abnormal 24443-1) [facility] CenterCBC WITHOUT [id number] 10:54:12 Test Item Value Reference Range Interpretation Comments WBC (test code = 6690-2) 6.16 See_Comment [A utomated message] The system [employer] generated this result transmit thuy reference range : 4.20 - 10.70 10*3/?L. The reference range was not used to interpret this result as normal/abnormal . RBC (test code = 789-8) 2.68 See_Comment L [Au tomated message] The system [employer] generated this result transmit thuy reference range [...] See_Comment L [Au tomated message] The system [employer] generated this result transmit thuy reference range : 150 - 328 10*3/?L. The reference range was not used to interpret this result as normal/abnormal . MPV (test code = 10.7 fL 9.8-13.0 37363-1) RDW-CV (test code = 15.9 % 12.1-15.4 H 788-0) RDW-SD (test code = 55.1 fL 38.5-51.6 H 17716-5) NRBC x10^3 (test code = <0.01 See_Comment [Au tomated message] 8935806763) The system [employer] generated this result transmit thuy reference range : 10*3/?L. The reference range was not used to interpret this result as normal/abnormal . NRBC/100 WBC (test code 0.0 See_Comment [Au tomated message] = 7301809583) The system [facility] generated this result transmit thuy reference range : 0.0 - 10.0 /100 WBC s. The reference r jaswinder was not used to interpret this result as normal/abnormal . IPF % (test code = 9923959184) Lab Interpretation (test Abnormal code = 39706-5) [facility] WITHOUT [id number] 02:02:35 Test Item Value Reference Range Interpretation Comments WBC (test code = 6690-2) 7.13 See_Comment [A utomated message] The system [employer] generated this result transmit thuy reference range : 4.20 - 10.70 10*3/?L. The reference range was not used to interpret this result as normal/abnormal . RBC (test code = 789-8) 2.80 See_Comment L [Au tomated message] The system [facility] generated this result transmit thuy reference [...] 164 See_Comment [Au tomated message] The system [employer] generated this result transmit thuy reference range : 150 - 328 10*3/?L. The reference range was not used to interpret this result as normal/abnormal . MPV (test code = 9.9 fL 9.8-13.0 44766-1) RDW-CV (test code = 16.3 % 12.1-15.4 H 788-0) RDW-SD (test code = 55.2 fL 38.5-51.6 H 18653-7) NRBC x10^3 (test code = <0.01 See_Comment [Au tomated message] 2589940985) The system [employer] generated this result transmit thuy reference range : 10*3/?L. The reference range was not used to interpret this result as normal/abnormal . NRBC/100 WBC (test code 0.0 See_Comment [Au tomated message] = 8081046264) The system [employer] generated this result transmit thuy reference range : 0.0 - 10.0 /100 WBC s. The reference r jaswinder was not used to interpret this result as normal/abnormal . IPF % (test code = 6923715661) Lab Interpretation (test Abnormal code = 91620-1) [facility] CenterPOTASSIUM [id number] 22:27:44 Test Item Value Reference Range Interpretation Comments K (test code = 1229993483) 3.6 mmol/L 3.5-5.0 Lab Interpretation (test code = Normal 60691-4) [facility] CenterPrepare Packed RBC (in units), 1 Units 2021-01-22 17:04:53 Test Item Value Reference Range Interpretation Comments Cross Match Result Compatible (test code = 4409) ISBT Blood Type Code 6200 (test code = 410395) Unit Blood Type (test A Pos code = 4410) Unit Number (test [id number] code = 4411) Blood Expiration Date & Time (test code = 936749) Status Information Issued (test code = 4412) Product Red Blood Cells Identification (test code = 4413) Product Code (test [id number] Performed at [facility] code = 4414) Laboratory Services - [facility] Blood [address] [place] [address] Quin Alves [id number] Free: [phone] A No. [id number] [facility] CenterXR CHEST 1 [id number] 13:45:17[facility], Radiant Results Inft User - 01/22/2021 8:46 AM CDTEXAM: XR CHEST 1 VWHISTORY: s/p CABG COMPARISON: None.FINDINGS:The heart and great vessels are normal except for a tortuous and prominentarteriosclerotic aorta. Chest tubes are unchanged on both sides and amediastinal drain is present in the midline. The [place]-Dena catheter wasremoved. The tip of the right IJ line is deep in the superior vena cava.Mild basilar pulmonary congestion is present in the lung bases and a smallpleural effusion blunts the left costophrenic angle. The lungs are clearotherwise. [facility] CenterCBC WITH [id number] 10:02:06 Test Item Value Reference Range Interpretation Comments WBC (test code = 7.30 See_Comment [Automated 4390-2) message] The sy stem which generated this result transmitted reference range : 4.20 - 10.70 10*3/?L. The reference range was not used to interpret this result as normal/abnormal . RBC (test code = 2.25 See_Comment L [Automated 559-8) message] The sy stem which generated this [...] (test code = 53.7 fL 38.5-51.6 H 31408-0) RDW-CV (test code = 15.5 % 12.1-15.4 H 788-0) PLT (test code = 155 See_Comment [Automated 777-3) message] The sy stem which generated this result transmitted reference range : 150 - 328 10*3/ ?L. The reference r jaswinder was not used to interpret this result as normal/abnormal . MPV (test code = 10.6 fL 9.8-13.0 31071-5) NRBC/100 WBC (test 0.0 See_Comment [Automat ed code = 7297988908) message] The system which generated this result transmitted reference range : 0.0 - 10.0 /100 WBCs. The refer ence range was not u sed to interpret th is result as normal/abnormal . NRBC x10^3 (test code <0.01 See_Comment [Auto mated = 5217950328) message] The s ystem which generated this result transmitted reference range : 10*3/?L. The reference range was not used to interpret this result as normal/abnormal . GRAN MAT (NEUT) % 77.0 % (test code = 770-8) IMM GRAN % (test code 0.30 % = 0746982453) LYMPH % (test code = 9.7 % 736-9) MONO % (test code = 12.9 % 5905-5) EOS % (test code = 0.0 % 713-8) BASO % (test code = 0.1 % 706-2) GRAN MAT x10^3(ANC) 5.62 10*3/uL 1.99-6.95 (test code = 9982578129) IMM GRAN x10^3 (test <0.03 0.00-0.06 code = 5422491994) LYMPH x10^3 (test code 0.71 10*3/uL 1.09-3.23 L = 731-0) MONO x10^3 (test code 0.94 10*3/uL 0.36-1.02 = 742-7) EOS x10^3 (test code = <0.03 0.06-0.53 L 711-2) BASO x10^3 (test code <0.03 0.01-0.09 = 704-7) Lab Interpretation Abnormal (test code = 60323-6) [facility]MAG[facility]UM2021-04-30 09:51:30 Test Item Value Reference Range Interpretation Comments MAGNESIUM (test code = 5078214957) 2.4 mg/dL 1.7-2.4 Lab Interpretation (test code = Normal 15993-6) [facility] CenterPHOSPHORUS2021-04-30 09:51:30 Test Item Value Reference Range Interpretation Comments PHOSPHORUS (test code = 6392635122) 1.9 mg/dL 2.5-5.0 L Lab Interpretation (test code = Abnormal 38527-6) [facility] METABOLIC PANEL (NA, K, CL, CO2, GLUCOSE, BUN, CREATININE, CA)2021-01-22 09:51:29 Test Item Value Reference Range Interpretation Comments NA (test code = 135 mmol/L 135-145 2300274959) K (test code = 4.3 mmol/L 3.5-5.0 2371243416) CL (test code = 105 mmol/L 98-108 5351739596) CO2 TOTAL (test code = 28 mmol/L 23-31 1473935945) AGAP (test code = 2 2-16 7472688728) BUN (test code = 11 mg/dL 7-23 7840225832) GLUCOSE (test code = 105 mg/dL 70-110 2238718698) CREATININE (test code = 0.50 mg/dL 0.60-1.25 L 9363808978) CALCIUM (test code = 8.0 mg/dL 8.6-10.6 L 5956136778) eGFR (test code = 159.2 mL/min/1.73m2 5392609860) CARLIE (test code = CARLIE) Association of [...] tests). Lab Interpretation Abnormal (test code = 03421-6) [facility] CenterMRSA / MSSA Screen by Amelia [id number] 17:21:29 Test Item Value Reference Range Interpretation Comments MSSA Screen by Amelia GARCIA (test code Negative Negative = 93405-9) MRSA/MSSA Positive? (test code = No No [id number]) Lab Interpretation (test code = Normal 23037-7) [facility] CenterAbdomen XRay 1 [id number] 16:22:12 The gastric tube is not visualized in the abdomen as it is turns superiorlyin the upper thoracic esophagus. Multiple additional lines and tubes as outlined above. Preliminary Report Dictated by Resident: Rc Todd I, Delmer Roberson MD., have reviewed this study and agree with the abovereport.[facility], Radiant Results Inft User - 01/21/2021 11:23 AM CDTEXAM: XR ABDOMEN 1 VWHISTORY: OGT placement COMPARISON: noneFINDINGS:The gastric tube is not visualized on the abdominal radiograph. Theconcurrent chest radiograph was reviewed for further evaluation of thegastric tube which is seen taking a 180 degree turn in the mid thoracicesophagus before extending superiorly beyond the vkwir-za-hced.The [place]-Dena catheter tip projects over the main pulmonary artery. Thecentral venous catheter tip projects over the superior cavoatrial junction.Bibasilar pleural drains identified with an additional drain projectingover the cardiac silhouette. The mediastinal drain extends superiorlybeyond the hwqpo-zf-ynpq.The upper abdominal bowel gas pattern demonstrates a nonobstructivepattern. No acute osseous abnormalities. Levocurvature of the lumbar spine.Multilevel spondylotic changes.IMPRESSIONThe gastric tube is not visualized in the abdomen as it is turns superiorlyin the upper thoracic esophagus.Multiple additional lines and tubes as outlined above.Preliminary Report Dictated by Resident: Delmer Villegas MD., have reviewed this study and agree with the abovereport.[facility] CenterChest 1 [id number] 13:32:40 [facility], Radiant Results Inft User - 01/21/2021 8:33 AM CDTEXAM: XR CHEST 1 VWHISTORY: s/p open heart surgery COMPARISON: None.FINDINGS:The chest tubes on both sides, the mediastinal drain and the [place]-Ganzcatheter are unchanged in position. The endotracheal and nasogastric tubeswere removed. The tip ofthe right IJ line is deep in the superior venacava. The heart and great vessels are normal. The hilar vascular congestionis present on both sides but does not extend peripherally, suggesting thepossibility of pulmonary arterial hypertension. The lungs are well expandedand clear.[facility] CenterXR CHEST 1 [id number] 13:16:03[facility], Radiant Results Inft User - 01/21/2021 8:17 AM CDTEXAM: XR CHEST 1 VWHISTORY: ETT placement Advanced ETT 1 cm, please confirm placementCOMPARISON: None.FINDINGS:The tip of the endotracheal tube is at the level of the clavicles and thechest tubes on both sides and mediastinal drain are unchangedin position.The tip of the [place]-Dena catheter is in the outflow tract of the rightventricle or just enters the main pulmonary artery, and the tip of theright IJ line is in the superior vena cava. The heart and great vessels arenormal except for prominence of the thoracic aorta the lungs are wellexpanded and clear except for minor basilar subsegmental atelectasis on theright.[facility] CenterPhosphorus2021-04-29 11:09:28 Test Item Value Reference Range Interpretation Comments PHOSPHORUS (test code = 8136814597) 3.8 mg/dL 2.5-5.0 Lab Interpretation (test code = Normal 91328-1) [facility] CenterBasic Metabolic Panel (NA, K, CL, CO2, GLUCOSE, BUN, CREATININE, CA)2021-01-21 11:09:27 Test Item Value Reference Range Interpretation Comments NA (test code = 136 mmol/L 135-145 2096664028) K (test code = 4.3 mmol/L 3.5-5.0 4752410095) CL (test code = 106 mmol/L 98-108 0516253940) CO2 TOTAL (test code = 24 mmol/L 23-31 5542421043) AGAP (test code = 6 2-16 6867925271) BUN (test code = 8 mg/dL 7-23 6842582819) GLUCOSE (test code = 147 mg/dL 70-110 H 6068754076) CREATININE (test code = 0.49 mg/dL 0.60-1.25 L 2036263286) CALCIUM (test code = 7.6 mg/dL 8.6-10.6 L 4071601041) eGFR (test code = 162.9 mL/min/1.73m2 3164372313) CARLIE (test code = CARLIE) Association of [...] tests). Lab Interpretation Abnormal (test code = 48530-9) [facility] CenterMagnesium2021-04-29 11:09:27 Test Item Value Reference Range Interpretation Comments MAGNESIUM (test code = 3224698656) 1.9 mg/dL 1.7-2.4 Lab Interpretation (test code = Normal 43011-0) [facility] CenterCB with [id number] 11:02:38 Test Item Value Reference Range Interpretation [...] (test code = 53.3 fL 38.5-51.6 H 27938-6) RDW-CV (test code = 15.9 % 12.1-15.4 H 788-0) PLT (test code = 187 See_Comment [Automated 777-3) message] The sy stem which generated this result transmitted reference range : 150 - 328 10*3/ ?L. The reference r jaswinder was not used to interpret this result as normal/abnormal . MPV (test code = 9.8 fL 9.8-13.0 16045-1) NRBC/100 WBC (test 0.0 See_Comment [Automat ed code = 7073852689) message] The system which generated this result transmitted reference range : 0.0 - 10.0 /100 WBCs. The refer ence range was not u sed to interpret th is result as normal/abnormal . NRBC x10^3 (test code <0.01 See_Comment [Auto mated = 9073640243) message] The s ystem which generated this result transmitted reference range : 10*3/?L. The reference range was not used to interpret this result as normal/abnormal . GRAN MAT (NEUT) % 86.1 % (test code = 770-8) IMM GRAN % (test code 0.10 % = 9365178496) LYMPH % (test code = 4.4 % 736-9) MONO % (test code = 9.4 % 5905-5) EOS % (test code = 0.0 % 713-8) BASO % (test code = 0.0 % 706-2) GRAN MAT x10^3(ANC) 6.44 10*3/uL 1.99-6.95 (test code = 5539607264) IMM GRAN x10^3 (test <0.03 0.00-0.06 code = 7081276920) LYMPH x10^3 (test code 0.33 10*3/uL 1.09-3.23 L = 731-0) MONO x10^3 (test code 0.70 10*3/uL 0.36-1.02 = 742-7) EOS x10^3 (test code = <0.03 0.06-0.53 L 711-2) BASO x10^3 (test code <0.03 0.01-0.09 = 704-7) BASO STIPPLING (test Present A code = 703-9) BANDS (test code = Increased A 9572081598) Lab Interpretation Abnormal (test code = 71366-5) [facility] CenterProthrombin Time / [id number] 10:45:25 Test Item Value Reference Range Interpretation Comments PROTIME PATIENT (test 13.9 See_Comment H [Auto mated message] code = 5964-2) The system [facility] generated this result transmitted ref erence range: 10.1 - 1 2.6 Seconds. The reference range was not used to int erpret this result as normal/abnormal . INR (test code = 6301-6) 1.2 Nor mal INR <1.1; Warfarin Therap eutic range 2.0 to 3. 0 or 2.5 to 3.5, dep ending upon the indica tions. Lab Interpretation (test Abnormal code = 53615-6) [facility] CenterABG+COOX+NA+K+GLU+CA2+ (While Intubated) 2021-01-21 10:16:45 Test Item Value Reference Range Interpretation Comments PH (test code = 2) 7.43 7.35-7.45 PCO2 (test code = 38 See_Comment [Automat ed message] 1903327875) The system [employer] generated this result transmit thuy reference range : 35 - 45 mmHg. The reference range was not used to interpret this result as normal/abnormal . PO2 (test code = 152 See_Comment H [Automated message] 3211064164) The system [employer] generated this result transmit thuy reference range : 80 - 100 mmHg. The reference range was not used to interpret this result as normal/abnormal . HCO3 (test code = 24 See_Comment [Automate d message] 6873201608) The system [employer] generated this result transmit thuy reference range : 22 - 26 mEq/L. The reference range was not used to interpret this result as normal/abnormal . BE (test code = -0.1 See_Comment [Automated message] 2950998678) The system [employer] generated this result transmit thuy reference range : -3.0 - 3.0 mEq/ L. The reference r jaswinder was not used to interpret this result as normal/abnormal . THB (test code = 8.4 g/dL 13.5-18.0 L 0428773151) %O2HB (test code = 97.8 % 94.0-99.0 5968594785) %COHB ART (test code = 1.0 % 0.0-1.5 9656721102) %METHB ART (test code = 0.2 % 0.4-1.5 L 5739320109) VOL%O2 ART (test code = 11.9 % 15.0-23.0 L 9505926702) NA (test code = 133 mmol/L 135-145 L 5816851406) K+ (test code = 4.3 mmol/L 3.5-5.0 1353518481) AC CA IONZ (test code = 4.40 mg/dL 4.50-5.30 L 6904866139) GLUCOSE (test code = 157 mg/dL 70-110 H 7622006621) Lab Interpretation Abnormal (test code = 37960-2) [facility] WITHOUT [id number] 03:17:28 Test Item Value Reference Range Interpretation Comments WBC (test code = 6690-2) 7.84 See_Comment [A utomated message] The system [employer] generated this result transmit thuy reference range : 4.20 - 10.70 10*3/?L. The reference range was not used to interpret this result as normal/abnormal . RBC (test code = 789-8) 2.51 See_Comment L [Au tomated message] The system [facility] generated this result transmit thuy reference [...] 183 See_Comment [Au tomated message] The system [facility] generated this result transmit thuy reference range : 150 - 328 10*3/?L. The reference range was not used to interpret this result as normal/abnormal . MPV (test code = 9.6 fL 9.8-13.0 L 20716-7) RDW-CV (test code = 15.6 % 12.1-15.4 H 788-0) RDW-SD (test code = 53.7 fL 38.5-51.6 H 96301-8) NRBC x10^3 (test code = <0.01 See_Comment [Au tomated message] 8304466044) The system [facility] generated this result transmit thuy reference range : 10*3/?L. The reference range was not used to interpret this result as normal/abnormal . NRBC/100 WBC (test code 0.0 See_Comment [Au tomated message] = 1157238489) The system [facility] generated this result transmit thuy reference range : 0.0 - 10.0 /100 WBC s. The reference r jaswinder was not used to interpret this result as normal/abnormal . IPF % (test code = 4400908734) Lab Interpretation (test Abnormal code = 48234-8) [facility] WITHOUT [id number] 01:41:33 Test Item Value Reference Range Interpretation Comments WBC (test code = 6690-2) 6.89 See_Comment [A utomated message] The system [employer] generated this result transmit thuy reference range : 4.20 - 10.70 10*3/?L. The reference range was not used to interpret this result as normal/abnormal . RBC (test code = 789-8) 2.44 See_Comment L [Au tomated message] The system [employer] generated this result transmit thuy reference range [...] 174 See_Comment [Au tomated message] The system [employer] generated this result transmit thuy reference range : 150 - 328 10*3/?L. The reference range was not used to interpret this result as normal/abnormal . MPV (test code = 9.5 fL 9.8-13.0 L 71054-5) RDW-CV (test code = 15.5 % 12.1-15.4 H 788-0) RDW-SD (test code = 53.7 fL 38.5-51.6 H 40910-8) NRBC x10^3 (test code = <0.01 See_Comment [Au tomated message] 4271497143) The system [employer] generated this result transmit thuy reference range : 10*3/?L. The reference range was not used to interpret this result as normal/abnormal . NRBC/100 WBC (test code 0.0 See_Comment [Au tomated message] = 6864995294) [facility] this result transmit thuy reference range : 0.0 - 10.0 /100 WBC s. The reference r jaswinder was not used to interpret this result as normal/abnormal . IPF % (test code = 4478248248) Lab Interpretation (test Abnormal code = 56902-9) [facility] CenterABG+COOX+NA+K+GLU+CA2+ (While Intubated) 2021-01-21 01:34:15 Test Item Value Reference Range Interpretation Comments PH (test code = 2) 7.39 7.35-7.45 PCO2 (test code = 39 See_Comment [Automat ed message] 1380714182) The system [employer] h generated this result transmit thuy reference range : 35 - 45 mmHg. The reference range was not used to interpret this result as normal/abnormal . PO2 (test code = 158 See_Comment H [Automated message] 4419827926) The system [employer] generated this result transmit thuy reference range : 80 - 100 mmHg. The reference range was not used to interpret this result as normal/abnormal . HCO3 (test code = 23 See_Comment [Automate d message] 9569824903) The system [employer] generated this result transmit thuy reference range : 22 - 26 mEq/L. The reference range was not used to interpret this result as normal/abnormal . BE (test code = -2.2 See_Comment [Automated message] 9288312563) The system [employer] generated this result transmit thuy reference range : -3.0 - 3.0 mEq/ L. The reference r jaswinder was not used to interpret this result as normal/abnormal . THB (test code = 8.0 g/dL 13.5-18.0 LL 9727530506) %O2HB (test code = 98.1 % 94.0-99.0 0390658725) %COHB ART (test code = 0.6 % 0.0-1.5 7306738727) %METHB ART (test code = 0.2 % 0.4-1.5 L 0224817327) VOL%O2 ART (test code = 11.4 % 15.0-23.0 L 7387537678) NA (test code = 136 mmol/L 135-145 6853614360) K+ (test code = 3.9 mmol/L 3.5-5.0 5278961116) AC CA IONZ (test code = 4.20 mg/dL 4.50-5.30 L 2195809705) GLUCOSE (test code = 129 mg/dL 70-110 H 6944802809) Lab Interpretation Abnormal (test code = 70524-6) [facility] 1 View (on admission)2021-01-21 00:29:18 Impression: Endotracheal tube is in appropriate position. Possible orogastric tube or nasogastric tube is looped upon itselfoverlapping the upper and mid esophagus, the distal aspect overlaps theneck and the tip is off the film; repositioning is recommended. Right internal jugular vein [place] catheter and sheath, the tip of thecatheter [...] film; repositioning is recommended.Right internal jugular vein [place] catheter and sheath, the tip of thecatheter [...] film; repositioning is recommended.Right internal jugular vein [place] catheter and sheath, the tip of thecatheter overlaps the main pulmonary artery. Bilateral and central chest tubes.No pneumothorax. Minimal left lung base subsegmental atelectasis.RL: 460End of report. [facility] with [id number] 00:09:19 Test Item Value Reference Range Interpretation [...] (test code = 51.8 fL 38.5-51.6 H 71016-7) RDW-CV (test code = 15.1 % 12.1-15.4 788-0) PLT (test code = 160 See_Comment [Automated 777-3) message] The sy stem which generated this result transmitted reference range : 150 - 328 10*3/ ?L. The reference r jaswinder was not used to interpret this result as normal/abnormal . MPV (test code = 9.8 fL 9.8-13.0 62561-3) NRBC/100 WBC (test 0.0 See_Comment [Automat ed code = 8709812737) message] The system which generated this result transmitted reference range : 0.0 - 10.0 /100 WBCs. The refer ence range was not u sed to interpret th is result as normal/abnormal . NRBC x10^3 (test code <0.01 See_Comment [Auto mated = 3103990761) message] The s ystem which generated this result transmitted reference range : 10*3/?L. The reference range was not used to interpret this result as normal/abnormal . GRAN MAT (NEUT) % 85.5 % (test code = 770-8) IMM GRAN % (test code 0.50 % = 3218530836) LYMPH % (test code = 7.8 % 736-9) MONO % (test code = 5.9 % 5905-5) EOS % (test code = 0.0 % 713-8) BASO % (test code = 0.3 % 706-2) GRAN MAT x10^3(ANC) 5.26 10*3/uL 1.99-6.95 (test code = 9788285985) IMM GRAN x10^3 (test 0.03 10*3/uL 0.00-0.06 code = 5587731613) LYMPH x10^3 (test code 0.48 10*3/uL 1.09-3.23 L = 731-0) MONO x10^3 (test code 0.36 10*3/uL 0.36-1.02 = 742-7) EOS x10^3 (test code = <0.03 0.06-0.53 L 711-2) BASO x10^3 (test code <0.03 0.01-0.09 = 704-7) Lab Interpretation Abnormal (test code = 37035-5) [facility] 23:41:31 Test Item Value Reference Range Interpretation Comments PHOSPHORUS (test code = 4381771582) 2.1 mg/dL 2.5-5.0 L Lab Interpretation (test code = Abnormal 71689-6) [facility] Center[facility]abolic [facility] (NA, K, CL, CO2, GLUCOSE, BUN, CREATININE, CA)2021-01-20 23:41:30 Test Item Value Reference Range Interpretation Comments NA (test code = 137 mmol/L 135-145 5601664741) K (test code = 3.9 mmol/L 3.5-5.0 8664950664) CL (test code = 108 mmol/L 98-108 2701217579) CO2 TOTAL (test code = 19 mmol/L 23-31 L 7485980618) AGAP (test code = 10 2-16 2619592588) BUN (test code = 7 mg/dL 7-23 5491092414) GLUCOSE (test code = 123 mg/dL 70-110 H 6475831614) CREATININE (test code = 0.43 mg/dL 0.60-1.25 L 1636946155) CALCIUM (test code = 7.2 mg/dL 8.6-10.6 L 7612077613) eGFR (test code = 189.5 mL/min/1.73m2 8379899639) CARLIE (test code = CARLIE) Association of [...] tests). Lab Interpretation Abnormal (test code = 29383-3) [facility]esium[facility] 23:41:30 Test Item Value Reference Range Interpretation Comments MAGNESIUM (test code = 0010174686) 2.3 mg/dL 1.7-2.4 Lab Interpretation (test code = Normal 55138-1) [facility] WITH [id number] 22:53:41 Test Item Value Reference Range Interpretation Comments WBC (test code = 6.84 See_Comment [Automated 5890-2) message] The sy stem which generated this [...] RDW-SD (test code = 50.9 fL 38.5-51.6 97050-9) RDW-CV (test code = 14.8 % 12.1-15.4 788-0) PLT (test code = 68 See_Comment L [Automated 777-3) message] The sy stem which generated this result transmitted reference range : 150 - 328 10*3/ ?L. The reference r jaswinder was not used to interpret this result as normal/abnormal . MPV (test code = 9.7 fL 9.8-13.0 L 32093-1) IPF % (test code = 2.5 % 1.2-10.7 Platelet count 3271521955) measured by fluorescence method. NRBC/100 WBC (test 0.0 See_Comment [Automat ed code = 2823557963) message] The system which generated this result transmitted reference range : 0.0 - 10.0 /100 WBCs. The refer ence range was not u sed to interpret th is result as normal/abnormal . NRBC x10^3 (test code <0.01 See_Comment [Auto mated = 5595245223) message] The s ystem which generated this result transmitted reference range : 10*3/?L. The reference range was not used to interpret this result as normal/abnormal . GRAN MAT (NEUT) % 81.7 % (test code = 770-8) IMM GRAN % (test code 0.70 % = 8166096728) LYMPH % (test code = 11.3 % 736-9) MONO % (test code = 5.7 % 5905-5) EOS % (test code = 0.3 % 713-8) BASO % (test code = 0.3 % 706-2) GRAN MAT x10^3(ANC) 5.59 10*3/uL 1.99-6.95 (test code = 7747445191) IMM GRAN x10^3 (test 0.05 10*3/uL 0.00-0.06 code = 6776456297) LYMPH x10^3 (test code 0.77 10*3/uL 1.09-3.23 [...] . Lab Interpretation Abnormal (test code = 27272-6) [facility] CenterABG+COOX+NA+K+GLU+CA2+ (While Intubated) 2021-01-20 22:49:48 Test Item Value Reference Range Interpretation Comments PH (test code = 2) 7.48 7.35-7.45 H PCO2 (test code = 26 See_Comment L [Automat ed message] 0822033541) The system [employer] generated this result transmit thuy reference range : 35 - 45 mmHg. The reference range was not used to interpret this result as normal/abnormal . PO2 (test code = 291 See_Comment H [Automated message] 1578760692) The system [employer] generated this result transmit thuy reference range : 80 - 100 mmHg. The reference range was not used to interpret this result as normal/abnormal . HCO3 (test code = 20 See_Comment L [Automate d message] 5454065371) The system [employer] generated this result transmit thuy reference range : 22 - 26 mEq/L. The reference range was not used to interpret this result as normal/abnormal . BE (test code = -3.9 See_Comment L [Automated message] 2152055965) The system [employer] generated this result transmit thuy reference range : -3.0 - 3.0 mEq/ L. The reference r jaswinder was not used to interpret this result as normal/abnormal . THB (test code = 8.5 g/dL 13.5-18.0 L 0253379660) %O2HB (test code = 99.0 % 94.0-99.0 7935538122) %COHB ART (test code = 0.3 % 0.0-1.5 6659598727) %METHB ART (test code = 0.3 % 0.4-1.5 L 4713090928) VOL%O2 ART (test code = 12.6 % 15.0-23.0 L 2324081422) NA (test code = 138 mmol/L 135-145 3899890902) K+ (test code = 4.0 mmol/L 3.5-5.0 1546475316) AC CA IONZ (test code = 4.00 mg/dL 4.50-5.30 L 7378464998) GLUCOSE (test code = 121 mg/dL 70-110 H 3983186333) Lab Interpretation Abnormal (test code = 48891-7) [facility] CenterFIBRINOGEN2021-04-28 22:31:20 Test Item Value Reference Range Interpretation Comments Fibrinogen (test code = 8956687447) 140 mg/dL 167-453 L Lab Interpretation (test code = Abnormal 80929-2) [facility] CenterPROTHROMBIN TIME / [id number] 22:31:15 Test Item Value Reference Range Interpretation Comments PROTIME PATIENT (test 20.8 See_Comment H [Auto mated message] code = 5964-2) The system [employer] generated this result transmitted ref erence range: 10.1 - 1 2.6 Seconds. The reference range was not used to int erpret this result as normal/abnormal . INR (test code = 6301-6) 1.8 Nor mal INR <1.1; Warfarin Therap eutic range 2.0 to 3. 0 or 2.5 to 3.5, dep ending upon the indica tions. Lab Interpretation (test Abnormal code = 54793-7) [facility] CenterACTIVATED PARTIAL THRMPLAS [id number] 22:30:08 Test Item Value Reference Range Interpretation Comments APTT Patient (test code = 28 See_Comment [ Automated message] 3173-2) The system [employer] generated this result transmitted ref erence range: 26 - 36 Seconds. The re ference range was not u sed to interpret this result as normal/abnor mal. Lab Interpretation (test Normal code = 42935-6) [facility] ACT HIGH [id number] 22:22:24 Test Item Value Reference Range Interpretation Comments ACTHR (test code = 519 See_Comment H [Automat ed message] ) The system [employer] generated this result transmitted ref erence range: 96 - 152 Seconds. The reference range was not used to int erpret this result as normal/abnormal . Lab Interpretation (test Abnormal code = 86634-8) [facility] ACT HIGH [id number] 22:22:24 Test Item Value Reference Range Interpretation Comments ACTHR (test code = 106 See_Comment [Automat ed message] ) The system [employer] generated this result transmitted ref erence range: 96 - 152 Seconds. The re ference range was not u sed to interpret this result as normal/abnor mal. Lab Interpretation (test Normal code = 32322-9) [facility] CenterPrepare Platelets (in units): 2 Units~ 2021-01-20 21:54:03 Test Item Value Reference Range Interpretation Comments Unit Blood Type (test O Pos code = 4410) ISBT Blood Type Code 5100 (test code = 705588) Unit Number (test code [id number] = 4411) Blood Expiration Date [id number] & Time (test code = 899798) Status Information Issued (test code = 4412) Product Identification Platelets (test code = 4413) Product Code (test [id number] Performed at [facility] code = 4414) Laboratory Services - [facility] Blood [address] [place] [address] 60783Mkwy Free: [phone] A No. [id number] [facility] ACUTE CARE [id number] 21:19:29 Test Item Value Reference Range Interpretation Comments PH (test code = 2) 7.43 7.35-7.45 PCO2 (test code = 32 See_Comment L [Automat ed message] 8612761388) The system lettrsic h generated this result transmit thuy reference range : 35 - 45 mmHg. The reference range was not used to interpret this result as normal/abnormal . PO2 (test code = 408 See_Comment H [Automated message] 9681479574) The system lettrsic h generated this result transmit thuy reference range : 80 - 100 mmHg. The reference range was not used to interpret this result as normal/abnormal . BE (test code = -3.0 See_Comment [Automated message] 7961339439) The system [employer] generated this result transmit thuy reference range : -3.0 - 3.0 mEq/ L. The reference r jaswinder was not used to interpret this result as normal/abnormal . HCO3 (test code = 21 See_Comment L [Automate d message] 8458295804) The system [employer] generated this result transmit thuy reference range : 22 - 26 mEq/L. The reference range was not used to interpret this result as normal/abnormal . %O2HB (test code = 100.0 % 95.0-98.0 H 2830339421) NA (test code = 141 mmol/L 135-145 7211245375) K+ (test code = 3.8 mmol/L 3.5-5.0 6390850970) AC CA IONZ (test code = 5.90 mg/dL 4.50-5.30 H 7271102014) GLUCOSE (test code = 131 mg/dL 70-110 H 8230601538) AC Hematocrit (test 16 See_Comment LL [Automa thuy message] code = 9226540511) The syste m which generated this result transmit thuy reference range : 40 - 54 VOL %. The reference range was not used to interpret this result as normal/abnormal . THB (test code = 5.4 g/dL 13.5-18.0 LL 5696591669) AC TC02 (test code = 22 mmol/L See_Comment L [Autom ated message] 5174360457) The system [employer] generated this result transmit thuy reference range : 23-27 mmol/L. T he reference range was not used to interpret this result as normal/abnormal . Lab Interpretation Abnormal (test code = 13768-2) [facility] ACUTE CARE [id number] 20:35:53 Test Item Value Reference Range Interpretation Comments PH (test code = 2) 7.44 7.35-7.45 PCO2 (test code = 33 See_Comment L [Automat ed message] 0340806826) The system lettrsic h generated this result transmit thuy reference range : 35 - 45 mmHg. The reference range was not used to interpret this result as normal/abnormal . PO2 (test code = 213 See_Comment H [Automated message] 6238367280) The system lettrsic h generated this result transmit thuy reference range : 80 - 100 mmHg. The reference range was not used to interpret this result as normal/abnormal . BE (test code = -2.0 See_Comment [Automated message] 6039325757) The system [employer] generated this result transmit thuy reference range : -3.0 - 3.0 mEq/ L. The reference r jaswindre was not used to interpret this result as normal/abnormal . HCO3 (test code = 22 See_Comment [Automate d message] 9719573900) The system [employer] generated this result transmit thuy reference range : 22 - 26 mEq/L. The reference range was not used to interpret this result as normal/abnormal . %O2HB (test code = 100.0 % 95.0-98.0 H 7799117610) NA (test code = 138 mmol/L 135-145 8392634591) K+ (test code = 4.6 mmol/L 3.5-5.0 9371927224) AC CA IONZ (test code = 3.40 mg/dL 4.50-5.30 L 3273837342) GLUCOSE (test code = 170 mg/dL 70-110 H 6898967417) AC Hematocrit (test 20 See_Comment LL [Automa thuy message] code = 4095544270) The syste m which generated this result transmit thuy reference range : 40 - 54 VOL %. The reference range was not used to interpret this result as normal/abnormal . THB (test code = 6.8 g/dL 13.5-18.0 LL 0340590421) AC TC02 (test code = 23 mmol/L See_Comment [Autom ated message] 9759039375) The system [employer] generated this result transmit thuy reference range : 23-27 mmol/L. T he reference range was not used to interpret this result as normal/abnormal . Lab Interpretation Abnormal (test code = 77005-1) [facility] ACUTE CARE [id number] 19:40:19 Test Item Value Reference Range Interpretation Comments PH (test code = 2) 7.45 7.35-7.45 PCO2 (test code = 35 See_Comment [Automat ed message] 7679789162) The system [employer] generated this result transmit thuy reference range : 35 - 45 mmHg. The reference range was not used to interpret this result as normal/abnormal . PO2 (test code = 218 See_Comment H [Automated message] 7839911032) The system [employer] generated this result transmit thuy reference range : 80 - 100 mmHg. The reference range was not used to interpret this result as normal/abnormal . BE (test code = 0.0 See_Comment [Automated message] 9218530348) The system [employer] generated this result transmit thuy reference range : -3.0 - 3.0 mEq/ L. The reference r jaswinder was not used to interpret this result as normal/abnormal . HCO3 (test code = 24 See_Comment [Automate d message] 7380994304) The system [employer] generated this result transmit thuy reference range : 22 - 26 mEq/L. The reference range was not used to interpret this result as normal/abnormal . %O2HB (test code = 100.0 % 95.0-98.0 H 4551254940) NA (test code = 139 mmol/L 135-145 7618585773) K+ (test code = 4.3 mmol/L 3.5-5.0 1638547556) AC CA IONZ (test code = 3.50 mg/dL 4.50-5.30 L 8129565585) GLUCOSE (test code = 128 mg/dL 70-110 H 7561742231) AC Hematocrit (test 19 See_Comment LL [Automa thuy message] code = 9204374373) The syste m which generated this result transmit thuy reference range : 40 - 54 VOL %. The reference range was not used to interpret this result as normal/abnormal . THB (test code = 6.5 g/dL 13.5-18.0 LL 3588593406) AC TC02 (test code = 25 mmol/L See_Comment [Autom ated message] 1316920897) The system [employer] generated this result transmit thuy reference range : 23-27 mmol/L. T he reference range was not used to interpret this result as normal/abnormal . Lab Interpretation Abnormal (test code = 25194-1) [facility] ACUTE CARE [id number] 19:16:31 Test Item Value Reference Range Interpretation Comments PH (test code = 2) 7.32 7.35-7.45 L PCO2 (test code = 49 See_Comment H [Automat ed message] 0568263295) The system [employer] generated this result transmit thuy reference range : 35 - 45 mmHg. The reference range was not used to interpret this result as normal/abnormal . PO2 (test code = 320 See_Comment H [Automated message] 8706515057) The system [employer] generated this result transmit thuy reference range : 80 - 100 mmHg. The reference range was not used to interpret this result as normal/abnormal . BE (test code = -1.0 See_Comment [Automated message] 7293447094) The system [employer] generated this result transmit thuy reference range : -3.0 - 3.0 mEq/ L. The reference r jaswinder was not used to interpret this result as normal/abnormal . HCO3 (test code = 25 See_Comment [Automate d message] 7091050367) The system [employer] generated this result transmit thuy reference range : 22 - 26 mEq/L. The reference range was not used to interpret this result as normal/abnormal . %O2HB (test code = 100.0 % 95.0-98.0 H 4924167643) NA (test code = 139 mmol/L 135-145 9303461299) K+ (test code = 4.1 mmol/L 3.5-5.0 5596642559) AC CA IONZ (test code = 3.50 mg/dL 4.50-5.30 L 2441597526) GLUCOSE (test code = 77 mg/dL 70-110 0659333579) AC Hematocrit (test 18 See_Comment LL [Automa thuy message] code = 6541740382) The syste m which generated this result transmit thuy reference range : 40 - 54 VOL %. The reference range was not used to interpret this result as normal/abnormal . THB (test code = 6.1 g/dL 13.5-18.0 LL 9928656914) AC TC02 (test code = 27 mmol/L See_Comment [Autom ated message] 5007495803) The system [employer] generated this result transmit thuy reference range : 23-27 mmol/L. T he reference range was not used to interpret this result as normal/abnormal . Lab Interpretation Abnormal (test code = 52819-7) [facility] Packed RBC (in units), 2 Units 2021-01-20 18:06:15 Test Item Value Reference Range Interpretation Comments Cross Match Result Compatible (test code = 4409) ISBT Blood Type Code 6200 (test code = 217712) Unit Blood Type (test A Pos code = 4410) Unit Number (test [id number] code = 4411) Blood Expiration Date & Time (test code = 396430) Status Information Issued (test code = 4412) Product Red Blood Cells Identification (test code = 4413) Product Code (test [id number] Performed at [facility] code = 4414) Laboratory Services - [facility] Blood [address] [place] [address] 26713Rnwg Free: [phone] A No. [id number] [facility] ACUTE CARE [id number] 17:45:13 Test Item Value Reference Range Interpretation Comments PH (test code = 2) 7.40 7.35-7.45 PCO2 (test code = 44 See_Comment [Automat ed message] 6107053363) The system [employer] generated this result transmit thuy reference range : 35 - 45 mmHg. The reference range was not used to interpret this result as normal/abnormal . PO2 (test code = 419 See_Comment H [Automated message] 7254233091) The system [employer] generated this result transmit thuy reference range : 80 - 100 mmHg. The reference range was not used to interpret this result as normal/abnormal . BE (test code = 2.0 See_Comment [Automated message] 8181117775) The system [employer] generated this result transmit thuy reference range : -3.0 - 3.0 mEq/ L. The reference r jaswinder was not used to interpret this result as normal/abnormal . HCO3 (test code = 27 See_Comment H [Automate d message] 6946190049) The system [employer] generated this result transmit thuy reference range : 22 - 26 mEq/L. The reference range was not used to interpret this result as normal/abnormal . %O2HB (test code = 100.0 % 95.0-98.0 H 6849780799) NA (test code = 139 mmol/L 135-145 0127844583) K+ (test code = 4.0 mmol/L 3.5-5.0 3685141351) AC CA IONZ (test code = 4.70 mg/dL 4.50-5.30 8437235739) GLUCOSE (test code = 81 mg/dL 70-110 4549448922) AC Hematocrit (test 26 See_Comment L [Automa thuy message] code = 1046466340) The syste m which generated this result transmit thuy reference range : 40 - 54 VOL %. The reference range was not used to interpret this result as normal/abnormal . THB (test code = 8.8 g/dL 13.5-18.0 L 4845176703) AC TC02 (test code = 29 mmol/L See_Comment H [Autom ated message] 4614328076) The system [employer] generated this result transmit thuy reference range : 23-27 mmol/L. T he reference range was not used to interpret this result as normal/abnormal . Lab Interpretation Abnormal (test code = 66086-3) [facility] Packed RBC (in units), 2 Units 2021-01-20 17:16:28 Test Item Value Reference Range Interpretation Comments Cross Match Result Compatible (test code = 4409) ISBT Blood Type Code 6200 (test code = 699389) Unit Blood Type (test A Pos code = 4410) Unit Number (test [id number] code = 4411) Blood Expiration Date & Time (test code = 118121) Status Information Issued (test code = 4412) Product Red Blood Cells Identification (test code = 4413) Product Code (test [id number] Performed at [facility] code = 4414) Laboratory Services - [facility] Blood [address] [place] [address] 20625Edtj Free: [phone] A No. [id number] [facility] WITH [id number] 14:22:21 Test Item Value Reference Range Interpretation [...] RDW-SD (test code = 46.5 fL 38.5-51.6 27249-9) RDW-CV (test code = 12.8 % 12.1-15.4 788-0) PLT (test code = 245 See_Comment [Automated 777-3) message] The sy stem which generated this result transmitted reference range : 150 - 328 10*3/ ?L. The reference r jaswinder was not used to interpret this result as normal/abnormal . MPV (test code = 9.6 fL 9.8-13.0 L 09020-9) NRBC/100 WBC (test 0.0 See_Comment [Automat ed code = 9847472613) message] The system which generated this result transmitted reference range : 0.0 - 10.0 /100 WBCs. The refer ence range was not u sed to interpret th is result as normal/abnormal . NRBC x10^3 (test code <0.01 See_Comment [Auto mated = 2437767546) message] The s ystem which generated this result transmitted reference range : 10*3/?L. The reference range was not used to interpret this result as normal/abnormal . GRAN MAT (NEUT) % 63.7 % (test code = 770-8) IMM GRAN % (test code 0.40 % = 3153528490) LYMPH % (test code = 27.1 % 736-9) MONO % (test code = 7.2 % 5905-5) EOS % (test code = 0.9 % 713-8) BASO % (test code = 0.7 % 706-2) GRAN MAT x10^3(ANC) 3.42 10*3/uL 1.99-6.95 (test code = 1517240354) IMM GRAN x10^3 (test <0.03 0.00-0.06 code = 0204394461) LYMPH x10^3 (test code 1.46 10*3/uL 1.09-3.23 = 731-0) MONO x10^3 (test code 0.39 10*3/uL 0.36-1.02 = 742-7) EOS x10^3 (test code = 0.05 10*3/uL 0.06-0.53 L 711-2) BASO x10^3 (test code 0.04 10*3/uL 0.01-0.09 = 704-7) Lab Interpretation Abnormal (test code = 44979-5) [facility] CenterABORH [id number] 13:57:35 Test Item Value Reference Range Interpretation Comments ABO & RH (test code A Positive Performe d at [facility] = 20) Laboratory Serv [facility] Blood Bank3 [address] [facility] [address]Etst Free: [phone] A No. [id number] [facility] Center[facility]inalysis2021-[facility]-28 13:36:49 Test Item Value Reference Range Interpretation Comments APPEARANCE (test code = Hazy Clear A 4897258616) COLOR (test code = Yellow Yellow 0426073922) PH (test code = 5.0 4.8-8.0 3985681375) SP GRAVITY (test code = 1.008 1.003-1.030 4559581981) GLU U QUAL (test code = Normal Normal 1527809346) BLOOD (test code = Negative Negative Interfere nce from 7908171722) ascorbic acid m ay cause false neg ative results. KETONES (test code = 5 mg/dL Negative A 1871265725) PROTEIN (test code = Negative Negative 2887-8) UROBILIN (test code = Normal Normal 4028885784) BILIRUBIN (test code = Negative Negative 3045333360) NITRITE (test code = Negative Negative 0070525666) LEUK ALEKSEY (test code = 75/uL Negative A 7370025838) RBC/HPF (test code = 7 See_Comment H [Autom ated message] 2571047483) The system [employer] generated this result transmitted ref erence range: 0 - 3 HP F. The reference range was not used to int erpret this result as normal/abnormal . WBC/HPF (test code = 5 See_Comment [Autom ated message] 7011483012) The system [employer] generated this result transmitted ref erence range: 0 - 5 HP F. The reference range was not used to int erpret this result as normal/abnormal . BACTERIA (test code = Negative Negative [id number]) SQ EPITH (test code = <1 See_Comment [Auto mated message] [id number]) The system MemoryMerge generated this result transmitted ref erence range: <=2 HPF. The reference range was not used to int erpret this result as normal/abnormal . ASCORBIC ACID (test code 20 mg/dL = 0654612710) Lab Interpretation (test Abnormal code = 26345-8) [facility] METABOLIC PANEL (NA, K, CL, CO2, GLUCOSE, BUN, CREATININE, CA)2021-01-20 13:34:51 Test Item Value Reference Range Interpretation Comments NA (test code = 138 mmol/L 135-145 5732010556) K (test code = 4.2 mmol/L 3.5-5.0 3910586497) CL (test code = 104 mmol/L 98-108 1007036294) CO2 TOTAL (test code 26 mmol/L 23-31 = 8703845381) AGAP (test code = 8 2-16 5230441553) BUN (test code = 10 mg/dL 7-23 4427631090) GLUCOSE (test code = 82 mg/dL 70-110 6742864635) CREATININE (test code 0.66 mg/dL 0.60-1.25 = 3037622185) CALCIUM (test code = 9.0 mg/dL 8.6-10.6 9030556205) eGFR (test code = 115.6 mL/min/1.73m2 7830158454) CARLIE (test code = CARLIE) Association of [...] or urine or abnormalities in imaging tests). [facility] The Type and Screen expires at midnight on the 3rd day after it was drawn. A current Type and Screen is required when RBCs are requested. For all other blood products, a Type and Scre en performed during the current hospitalizati...2021-01-20 13:02:07 Test Item Value Reference Range Interpretation Comments ABO & RH (test code A POSITIVE Performe d at [facility] = 20) Laboratory Serv [facility] Blood [facility]3 [facility] s [id number] Free: [phone] A No. [id number] IAT (test code = Negative Performed a t [facility] 1185) [facility]3 [address] [facility] s [id number] Free: [phone] A No. [id number] [facility] Center[facility] / [id number] 13:00:24 Test Item Value Reference Range Interpretation Comments PROTIME PATIENT (test 11.1 See_Comment [Auto mated message] code = 5964-2) The system Pharnext generated this result transmitted ref erence range: 10.1 - 1 2.6 Seconds. The re ference range was not u sed to interpret this result as normal/abnor mal. INR (test code = 6301-6) 1.0 Nor mal INR <1.1; Warfarin Therap eutic range 2.0 to 3. 0 or 2.5 to 3.5, dep ending upon the indica tions. Lab Interpretation (test Normal code = 85252-0) [facility]"
[2021-12-18 19:20] LABS: Protime INR 0.95
[2021-12-18 19:35] LABS: BUN Blood Urea Nitrogen 12 mg/dL (7-18); Bicarbonate 28 mmol/L (21-32); Glucose Level 108 mg/dL (74-106); Sodium Level 139 mmol/L (136-145)
[2021-12-18 19:36] LABS: Potassium 4.3 mmol/L (3.5-5.1)
[2021-12-18 19:39] LABS: Absolute Lymphocytes (CBC) 1.4 K/uL (0.7-4.9); Hematocrit 42.5 % (39.6-49.0); Lymphocytes % 24.9 % (15.3-44.8); MPV 8.3 fL (7.6-11.3); RBC Red Blood Cell Count 4.37 M/uL (4.33-5.43)
[2021-12-18 19:42] LABS: Albumin 3.8 g/dL (3.4-5.0); Alkaline Phosphatase 57 U/L (45-117); Bilirubin Direct 0.2 mg/dL (0-0.2); Bilirubin Total 0.6 mg/dL (0.2-1.0); Protein, Total 7.3 g/dL (6.4-8.2)
--- NOTE | 2021-12-18 19:52 | RAD REPORT ---
EXAM DESCRIPTION: RAD - Chest Single View - 12/18/2021 7:43 pm CLINICAL HISTORY: CHEST PAIN COMPARISON: Chest Single View dated 10/01/2021; Chest Single View dated 03/09/2021; Chest Single View d ated 11/08/2018; Chest Pa And Lat (2 Views) dated 10/04/2017 FINDINGS: Lines: None. Lungs: No evidence of edema or pneumonia. Pleural: No significant pleural effusions or pneumothorax. Cardiac: The heart size is within normal limits. Bones: No acute fractures. Sternotomy. Other: IMPRESSION: No acute cardiopulmonary disease.
[2021-12-18 20:00] LABS: AST/SGOT 25 U/L (15-37)
[2021-12-18 20:32] LABS: SARS-COV-2 RT PCR NEGATIVE (NEGATIVE)
[2021-12-18 21:03] LABS: ALT/SGPT 22 U/L (12-78); NT PRO-BNP 426 pg/mL (<450); Troponin High Sensitivity 11.4 pg/mL (<58.9)
[2021-12-18 21:17] LABS: Magnesium 2.2 mg/dL (1.8-2.4)
[2021-12-18 21:27] LABS: Blood Morphology Comment NOT SEEN (NOT SEEN); Platelet Estimate ADEQ; White Blood Cell Scan OK (OK)
--- NOTE | 2021-12-18 21:45 | ER ---
Nurse's Notes [facility] Name: Cecil Butterfield Age: 81 yrs Sex: Male : 1940 Arrival Date: 12/18/2021 Time: 18:43 Bed 7 Private MD: Diagnosis: Chest pain, unspecified Presentation: 12/18 18:54 Chief complaint: Patient states: "Im having this pain in my chest and its making me ab2 dizzy. I had open heart surgery one year ago so I didn't want to chance it.". Coronavirus screen: Vaccine status: Patient reports receiving the 2nd dose of the covid vaccine. Client denies travel out of the [place] in the last 14 days. At this time, the client does not indicate any symptoms associated with coronavirus-19. Ebola Screen: Patient negative for fever greater than or equal to 101.5 degrees Fahrenheit, and additional compatible Ebola Virus Disease symptoms Patient denies exposure to infectious person. Patient denies travel to an Ebola-affected area in the 21 days before illness onset. No symptoms or risks identified at this time. Initial Sepsis Screen: Does the patient meet any 2 criteria? No. Patient's initial sepsis screen is negative. Does the patient have a suspected source of infection? No. Patient's initial sepsis screen is negative. Risk Assessment: Do you want to hurt yourself or someone else? Patient reports no desire to harm self or others. Onset of symptoms is unknown. 18:54 Method Of Arrival: Ambulatory ab2 18:54 Acuity: JAMSHID 3 ab2 Triage Assessment: 18:56 General: Appears in no apparent distress. comfortable, Behavior is calm, cooperative, ab2 appropriate for age. Pain: Complains of pain in chest. Cardiovascular: Reports chest pain, lightheadedness. Historical: - Allergies: 18:55 No Known Allergies; ab2 - Home Meds: 22:38 aspirin 81 mg Oral TbEC 1 tab once daily [Active]; atenolol 25 mg Oral tab 1 tab once lp1 daily [Active]; metoprolol tartrate 25 mg Oral tab [Active]; - PMHx: 18:55 Anemia; blood transfusion from bleeding ucler; CAD; GI Bleed; Hypertension; Ulcers; ab2 - PSHx: 18:55 open heart surgery; ab2 - Immunization history:: Adult Immunizations up to date. - Social history:: Smoking status: Patient denies any tobacco usage or history of. Screenin:20 Abuse screen: Denies threats or abuse. Denies injuries from another. Nutritional kd3 screening: No deficits noted. Tuberculosis screening: No symptoms or risk factors identified. 19:53 Fall Risk None identified. kd3 Assessment: 19:52 Reassessment: Patient and/or family updated on plan of care and expected duration. Pain kd3 level reassessed. Patient is alert, oriented x 3, equal unlabored respirations, skin warm/dry/pink. pt reports taking a baby aspirin this morning. MD notified. General: Appears in no apparent distress. Behavior is calm, cooperative, appropriate for age. Neuro: Level of Consciousness is awake, alert, obeys commands, Oriented to person, place, time, situation. Cardiovascular: Patient's skin is warm and dry. Rhythm is regular. Respiratory: Airway is patent Trachea midline Respiratory effort is even, unlabored. GI: No signs and/or symptoms were reported involving the gastrointestinal system. : No signs and/or symptoms were reported regarding the genitourinary system. EENT: No deficits noted. Derm: Skin is intact. 20:45 Reassessment: Patient appears in no apparent distress at this time. Patient is alert, lp1 oriented x 3, equal unlabored respirations, skin warm/dry/pink. Patient denies pain at this time. 21:52 Reassessment: Patient appears in no apparent distress at this time. Patient and/or lp1 family updated on plan of care and expected duration. Pain level reassessed. Patient aware of pending admission to hospital. 22:16 Reassessment: RICK Mar at bedside to discuss results and plan of care with lp1 patient. Vital Signs: 18:54 BP 123 / 83; Pulse 108; Resp 17; Temp 97.8(TE); Pulse Ox 100% on R/A; Weight 47.17 kg; ab2 Height 5 ft. 3 in. (160.02 cm); Pain 6/10; 19:19 BP 114 / 71; Pulse 95; Resp 12; Pulse Ox 100% on R/A; kd3 20:45 BP 126 / 83; Pulse 95; Resp 19; Pulse Ox 100% on R/A; lp1 23:00 BP 141 / 89; Pulse 94; Resp 19; Pulse Ox 100% on R/A; lp1 18:54 Body Mass Index 18.42 (47.17 kg, 160.02 cm) ab2 ED Course: 18:43 Patient arrived in ED. rg4 18:55 Triage completed. ab2 18:56 Arm band placed on right wrist. ab2 19:00 Jono Dietrich MD is Attending Physician. mh7 19:02 Patient has correct armband on for positive identification. Placed in gown. Bed in low mh5 position. Call light in reach. experimental mechanic spacecraft on. Pulse ox on. NIBP on. 19:03 Missed attempt(s): 22 gauge in left forearm. 5 19:04 Initial lab(s) drawn, by ED staff, sent to lab. EKG done, by ED staff, reviewed by [facility] Jono Dietrich MD. 19:08 Ariana Aguero, RN is Primary Nurse. kd3 19:44 XRAY Chest (1 view) In Process Unspecified. EDMS 21:44 Shar Jarquin is Hospitalizing Provider. [facility] 22:50 Missed attempt(s): 22 gauge in left antecubital area. lp1 23:00 Inserted saline lock: 22 gauge in left forearm, using aseptic technique. By Tay, lp1 Tech. 23:09 No provider procedures requiring assistance completed. Patient admitted, IV remains in lp1 place. Administered Medications: No medications were administered Outcome: 21:44 Decision to Hospitalize by Provider. 7 23:09 Condition: stable lp1 23:09 Instructed on the need for admit. 23:36 Admitted to Med/surg via wheelchair, room 219, with chart, Report called to ELLE Car lp1 23:36 Patient left the ED. lp1 Signatures: Dispatcher MedHost EDMS Chapis Ardon, RN RN lp1 Holli Higgins 4 Lia Mullins [facility] Jono Dietrich MD MD 7 Ariana Aguero, RN RN kd3 Ancelmo López 2
--- NOTE | 2021-12-18 21:45 | EDPHYS ---
Physician Documentation [facility] Name: Cecil Butterfield Age: 81 yrs Sex: Male : 1940 Arrival Date: 12/18/2021 Time: 18:43 Bed 7 Private MD: ED Physician Jono Dietrich HPI: 12/18 19:24 This 81 yrs old Male presents to ER via Ambulatory with complaints of Chest Discomfort. mh7 19:24 The patient or guardian reports chest pain that is located primarily in the anterior mh7 chest wall, left. Onset: 2 day(s) ago. The pain does not radiate. Associated signs and symptoms: Pertinent positives: dizziness, Pertinent negatives: abdominal pain, cough, diaphoresis, headache, lower extremity pain, lower extremity swelling, nausea, near syncope, palpitations, recent travel, shortness of breath, syncope, vomiting. The chest pain is described as dull. Duration: The patient or guardian reports multiple episodes, that are intermittent, that wax and wane, with no pattern. Modifying factors: The symptoms are alleviated by nothing. the symptoms are aggravated by nothing. Severity of pain: At its worst the pain was moderate 2 day(s) ago, in the emergency department the pain has improved moderately. Historical: - Allergies: 18:55 No Known Allergies; ab2 - Home Meds: 22:38 aspirin 81 mg Oral TbEC 1 tab once daily [Active]; atenolol 25 mg Oral tab 1 tab once lp1 daily [Active]; metoprolol tartrate 25 mg Oral tab [Active]; - PMHx: 18:55 Anemia; blood transfusion from bleeding ucler; CAD; GI Bleed; Hypertension; Ulcers; ab2 - PSHx: 18:55 open heart surgery; ab2 - Immunization history:: Adult Immunizations up to date. - Social history:: Smoking status: Patient denies any tobacco usage or history of. ROS: 19:24 Constitutional: Negative for fever, chills, and weight loss, Eyes: Negative for injury, mh7 pain, redness, and discharge, ENT: Negative for injury, pain, and discharge, Neck: Negative for injury, pain, and swelling, Respiratory: Negative for shortness of breath, cough, wheezing, and pleuritic chest pain, Abdomen/GI: Negative for abdominal pain, nausea, vomiting, diarrhea, and constipation, Back: Negative for injury and pain, : Negative for injury, bleeding, discharge, and swelling, MS/Extremity: Negative for injury and deformity, Skin: Negative for injury, rash, and discoloration, Neuro: Negative for headache, weakness, numbness, tingling, and seizure, Psych: Negative for depression, anxiety, suicide ideation, homicidal ideation, and hallucinations, Allergy/Immunology: Negative for hives, rash, and allergies, Endocrine: Negative for neck swelling, polydipsia, polyuria, polyphagia, and marked weight changes, Hematologic/Lymphatic: Negative for swollen nodes, abnormal bleeding, and unusual bruising. Exam: 19:24 Constitutional: This is a well developed, well nourished patient who is awake, alert, mh7 and in no acute distress. Head/Face: Normocephalic, atraumatic. Eyes: Pupils equal round and reactive to light, extra-ocular motions intact. Lids and lashes normal. Conjunctiva and sclera are non-icteric and not injected. Cornea within normal limits. Periorbital areas with no swelling, redness, or edema. ENT: Nares patent. No nasal discharge, no septal abnormalities noted. Tympanic membranes are normal and external auditory canals are clear. Oropharynx with no redness, swelling, or masses, exudates, or evidence of obstruction, uvula midline. Mucous membranes moist. Neck: Trachea midline, no thyromegaly or masses palpated, and no cervical lymphadenopathy. Supple, full range of motion without nuchal rigidity, or vertebral point tenderness. No Meningismus. Chest/axilla: Normal chest wall appearance and motion. Nontender with no deformity. No lesions are appreciated. Cardiovascular: Regular rate and rhythm with a normal S1 and S2. No gallops, murmurs, or rubs. Normal PMI, no JVD. No pulse deficits. Respiratory: Lungs have equal breath sounds bilaterally, clear to auscultation and percussion. No rales, rhonchi or wheezes noted. No increased work of breathing, no retractions or nasal flaring. Abdomen/GI: Soft, non-tender, with normal bowel sounds. No distension or tympany. No guarding or rebound. No evidence of tenderness throughout. Back: No spinal tenderness. No costovertebral tenderness. Full range of motion. Skin: Warm, dry with normal turgor. Normal color with no rashes, no lesions, and no evidence of cellulitis. MS/ Extremity: Pulses equal, no cyanosis. Neurovascular intact. Full, normal range of motion. Neuro: Awake and alert, GCS 15, oriented to person, place, time, and situation. Cranial nerves II-XII grossly intact. Motor strength 5/5 in all extremities. Sensory grossly intact. Cerebellar exam normal. Normal gait. Psych: Awake, alert, with orientation to person, place and time. Behavior, mood, and affect are within normal limits. 19:24 ECG was reviewed by the Attending Physician. [facility] Vital Signs: 18:54 BP 123 / 83; Pulse 108; Resp 17; Temp 97.8(TE); Pulse Ox 100% on R/A; Weight 47.17 kg; ab2 Height 5 ft. 3 in. (160.02 cm); Pain 6/10; 19:19 BP 114 / 71; Pulse 95; Resp 12; Pulse Ox 100% on R/A; kd3 20:45 BP 126 / 83; Pulse 95; Resp 19; Pulse Ox 100% on R/A; lp1 23:00 BP 141 / 89; Pulse 94; Resp 19; Pulse Ox 100% on R/A; lp1 18:54 Body Mass Index 18.42 (47.17 kg, 160.02 cm) ab2 MDM: 21:42 Differential diagnosis: abnormal EKG, acute myocardial infarction, acute pericarditis, 7 coronary artery disease chest wall pain, congestive heart failure cholecystitis, costochondritis, gastritis, gastroesophageal reflux disease (GERD), pneumonia, pneumothorax. HEART Score: History: Moderately Suspicious (1), ECG: Non specific repolarization disturbance / LBTB / PM (1), Age: > or = 65 years (2), Risk Factors: 1 or 2 risk factors (1), [Hypercholesterolemia] [Hypertension] Troponin: < or = 1 x Normal Limit (0), Total Score = 5. The patient was not given aspirin in the Emergency Department. Patient reports taking aspirin within the past 24 hours. Data reviewed: vital signs. Data reviewed: nurses notes, old medical records, lab test result(s), cardiac enzymes, CBC, electrolytes, EKG, radiologic studies, plain films. Data interpreted: Pulse oximetry: on room air is 100 %. Interpretation: normal. Counseling: I had a detailed discussion with the patient and/or guardian regarding: the historical points, exam findings, and any diagnostic results supporting the discharge/admit diagnosis, lab results, radiology results, the need for further work-up and treatment in the hospital. Response to treatment: the patient's symptoms have markedly improved after treatment. 21:44 Patient medically screened. [facility] 12/18 19:04 Order name: Basic Metabolic Panel; Complete Time: 21:19 [facility] 12/18 19:04 Order name: CBC with Diff; Complete Time: 21:34 [facility] 12/18 19:04 Order name: Magnesium; Complete Time: 21:19 [facility] 12/18 19:04 Order name: NT PRO-BNP; Complete Time: 21:19 [facility] 12/18 19:04 Order name: PT-INR; Complete Time: 19:37 [facility] 12/18 19:04 Order name: Troponin HS; Complete Time: 21:19 [facility] 12/18 19:04 Order name: XRAY Chest (1 view); Complete Time: 19:55 [facility] 12/18 19:04 Order name: EKG; Complete Time: 19:05 [facility] 12/18 19:04 Order name: Cardiac monitoring; Complete Time: 19:04 [facility] 12/18 19:04 Order name: EKG - Nurse/Tech; Complete Time: 19:04 [facility] 12/18 19:15 Order name: Liver (Hepatic) Function; Complete Time: 21:19 [facility] 12/18 19:37 Order name: COVID-19/FLU A+B (Document "Date of Onset" if Symptomatic); Complete Time: [facility] 21:12/18 21:28 Order name: CBC Smear Scan; Complete Time: 21:34 [facility] 12/18 19:04 Order name: Labs collected and sent; Complete Time: 19:06 [facility] 12/18 19:04 Order name: O2 Per Protocol; Complete Time: 19:10 [facility] 12/18 19:04 Order name: O2 Sat Monitoring; Complete Time: 19:06 [facility] EC:24 Rate is 95 beats/min. Rhythm is regular, Normal Sinus Rhythm with Occasional PVCs, 7 PACs. QRS [place] is Normal. [place] interval is normal. QRS interval is normal. QT interval is normal. No Q waves. T waves are Normal. No ST changes noted. Clinical impression: Abnormal EKG without significant change, No change from prior ECG, and No evidence of ischemia. Administered Medications: No medications were administered Disposition Summary: 12/18/21 21:44 Hospitalization Ordered Hospitalization Status: Observation [facility] Provider: Shar Jarquin Location: Telemetry/MedSurg (observation) [facility] Condition: Stable [facility] Problem: new [facility] Symptoms: have improved [facility] Bed/Room Type: Standard [facility] Room Assignment: 219(12/18/21 22:49) Diagnosis - Chest pain, unspecified [facility] Forms: - Medication Reconciliation Form [facility] - SBAR form [facility] Signatures: Dispatcher Med[employer] EDMS Amie Rivera RN RN Chapis Ardon RN RN lp1 Jono Dietrich MD MD [facility] Ancelmo López Sophia, PA PA sb3 Corrections: (The following items were deleted from the chart) 19:16 19:07 HEPATIC FUNCTION+C.LAB.BRZ ordered. EDNC EDNC 22:49 21:44 [facility] mw
--- NOTE | 2021-12-18 23:00 | P.HP ---
Certification for Inpatient Patient admitted to: Observation With expected LOS: <2 Midnights Patient will require the following post-hospital care: None Practitioner: I am a practitioner with admitting privileges, knowledge of patient current condition, hospital course, and medical plan of care. Services: Services provided to patient in accordance with Admission requirements found in Title 42 Section 412.3 of the Code of Federal Regulations Patient History Date of Service: 12/18/21 Primary Care Provider: Dr. Aranda Reason for admission: ACS rule out History of Present Illness: Patient is an 81-year-old male with CAD, hypertension, chronic anemia who presented to the ED after experiencing some discomfort in his chest for about 2 days. He had a triple bypass done in December and wanted to get checked out. Patient is adamant that the feeling in his chest is not pain but discomfort. It is associated with some mild dizziness. his labs in the ED were unremarkable. EKG negative for ST changes. Patient will be admitted for observation. Allergies No Known Allergies Allergy (Verified 09/05/16 02:54) Home medications list reviewed: Yes Home Medications: Aspirin [Aspirin EC 81 MG] 81 mg PO DAILY 09/05/16 Codeine/APAP [Tylenol W/Codeine #3 tab] 1 tab PO Q6HP PRN 09/23/19 Doxycycline Monohydrate 100 mg PO BID 09/23/19 Saw Spencer 160 mg PO DAILY 09/23/19 Smz./Tmp. 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 moist/pink, EOMI, Sclerae nonicteric Neck: Supple, 2+ carotid pulse no bruit, No LAD, Without JVD or thyroid abnormality Respiratory: Clear to auscultation bilaterally, Normal air movement Cardiovascular: No edema, Regular rate/rhythm, Normal S1 S2 Gastrointestinal: Normal bowel sounds, No tenderness Musculoskeletal: No tenderness Integumentary: No rashes Neurological: Normal speech, Normal strength at 5/5 x4 extr, Normal tone, Normal affect - Studies Laboratory Data (last 24 hrs) 12/18/21 19:06: Total Bilirubin Cancelled, AST Cancelled, ALT Cancelled, Alkaline Phosphatase Cancelled 12/18/21 19:04: PT 10.4, INR 0.95 12/18/21 19:04: WBC 5.7, Hgb 14.2, Hct 42.5, Plt Count 164 12/18/21 19:04: Sodium 139, Potassium 4.3, BUN 12, Creatinine 0.71, Glucose 108 H, Magnesium 2.2, Total Bilirubin 0.6, AST 25, ALT 22, Alkaline Phosphatase 57 Assessment and Plan - Problems (Diagnosis) (1) Chest discomfort Current Visit: Yes Status: Acute (2) CAD (coronary artery disease) of artery bypass graft Current Visit: Yes Status: Chronic Qualifiers: [place] vs. transplanted heart: [place] heart Associated angina: with stable angina Qualified Code(s): I25.708 - Atherosclerosis of coronary artery bypass graft(s), unspecified, with other forms of angina pectoris (3) HTN (hypertension) Current Visit: Yes Status: Chronic Qualifiers: Hypertension type: primary hypertension Qualified Code(s): I10 - Essential (primary) hypertension - Plan -Patient's labs were negative including troponin. Will trend troponin every 6 hours x2. EKG negative for ST changes. Chest x-ray negative. Vital signs stable. Will monitor on telemetry overnight -Aspirin, atorvastatin, Lovenox, echo ordered along with cardiology consult. -Patient has no other complaints at this time. We will continue home medications as appropriate. -Full code Discharge Plan: Home Plan to discharge in: 24 Hours - Advance Directives Does patient have a Living Will: No Does patient have a Durable POA for Healthcare: No - Code Status/Comfort Care Code Status Assessed: Yes (Full) Critical Care: No Time Spent Managing Pts Care (In Minutes): 70
[2021-12-18 23:53] VITALS: O2SAT 100
[2021-12-19] MEDS ORDERED: MELATONIN 5 MG TABLET PO PRN (00:23)
[2021-12-19] MEDS ORDERED: ACETAMINOPHEN 500 MG TAB PO PRN (00:23)
[2021-12-19] MEDS ORDERED: ONDANSETRON 4 MG/2 ML VIAL IV PRN (00:23)
[2021-12-19] MEDS ORDERED: ASPIRIN 81 MG CHEWABLE TABLET PO ONE (00:23)
[2021-12-19 00:56] VITALS: BMI 18.8
[2021-12-19 07:23] LABS: Absolute Lymphocytes (CBC) 1.8 K/uL (0.7-4.9); Hematocrit 38.5 % (39.6-49.0); MPV 7.2 fL (7.6-11.3); RBC Red Blood Cell Count 3.96 M/uL (4.33-5.43)
[2021-12-19 07:44] LABS: ALT/SGPT 21 U/L (12-78); AST/SGOT 17 U/L (15-37); Albumin 3.4 g/dL (3.4-5.0); Alkaline Phosphatase 51 U/L (45-117); BUN Blood Urea Nitrogen 9 mg/dL (7-18); Bicarbonate 31 mmol/L (21-32); Bilirubin Total 0.5 mg/dL (0.2-1.0); Glucose Level 87 mg/dL (74-106); HDL Cholesterol 48 mg/dL (40-60); LDL Cholesterol, Calculated 71 (<130); Potassium 3.9 mmol/L (3.5-5.1); Protein, Total 6.6 g/dL (6.4-8.2); Sodium Level 141 mmol/L (136-145)
[2021-12-19 08:34] VITALS: BP 142/85; TEMP 97.4
[2021-12-19] MEDS ORDERED: ENOXAPARIN 40 MG/0.4 ML SQ SCH (09:00)
--- NOTE | 2021-12-19 10:55 | P.DS ---
Admission Date: 12/18/21 Discharge Date: 12/19/21 Primary Care Provider: Dr. Aranda Disposition: ROUTINE DISCHARGE Discharge Condition: FAIR Reason for Admission: ACS rule out - Problems (1) Chest discomfort Current Visit: Yes Status: Acute (2) CAD (coronary artery disease) of artery bypass graft Current Visit: Yes Status: Chronic Qualifiers: [place] vs. transplanted heart: [place] heart Associated angina: with stable angina Qualified Code(s): I25.708 - Atherosclerosis of coronary artery bypass graft(s), unspecified, with other forms of angina pectoris (3) HTN (hypertension) Current Visit: Yes Status: Chronic Qualifiers: Hypertension type: primary hypertension Qualified Code(s): I10 - Essential (primary) hypertension Brief History of Present Illness: Patient is an 81-year-old male with CAD, hypertension, chronic anemia who presented to the ED after experiencing some discomfort in his chest for about 2 days. He had a triple bypass done in December last year and wanted to get checked out. Patient is adamant that the feeling in his chest is not pain but discomfort. It is associated with some mild dizziness. his labs in the ED were unremarkable. EKG showed nonspecific ST changes. Initial troponin negative. Patient placed on observation for ACS rule out. Hospital Course: Patient placed on observation on the medical floor. Troponin trended negative. Patient was asymptomatic during the hospital stay. Patient has been nagging to go home because he has been asymptomatic. Case discussed with Dr. Norton. He will follow with patient in the office next week for stress test. Patient discharged per his request. Vital Signs/Physical Exam: Temp Pulse Resp BP Pulse Ox 97.4 F 71 14 142/85 H 100 12/19/21 08:00 12/19/21 08:00 12/19/21 08:00 12/19/21 08:00 12/19/21 08:00 General: Alert, In no apparent distress, Oriented x3 HEENT: Mucous membr. moist/pink Neck: JVD not distended Respiratory: Clear to auscultation bilaterally, Normal air movement Cardiovascular: No edema, Regular rate/rhythm, Normal S1 S2 Capillary refill: <2 Seconds Gastrointestinal: Soft and benign, Non-distended, No tenderness Musculoskeletal: No swelling Integumentary: No rashes Neurological: Normal strength at 5/5 x4 extr Laboratory Data at Discharge: WBC 5.3 K/uL (4.3-10.9) 12/19/21 07:09 Hgb 13.1 g/dL (13.6-17.9) L 12/19/21 07:09 Hct 38.5 % (39.6-49.0) L 12/19/21 07:09 Plt Count 242 K/uL (152-406) D 12/19/21 07:09 PT 10.4 SECONDS (9.5-12.5) 12/18/21 19:04 INR 0.95 12/18/21 19:04 Sodium 141 mmol/L (136-145) 12/19/21 07:09 Potassium 3.9 mmol/L (3.5-5.1) 12/19/21 07:09 BUN 9 mg/dL (7-18) 12/19/21 07:09 Creatinine 0.66 mg/dL (0.55-1.3) 12/19/21 07:09 Glucose 87 mg/dL (74-106) 12/19/21 07:09 Magnesium 2.2 mg/dL (1.8-2.4) 12/18/21 19:04 Total Bilirubin 0.5 mg/dL (0.2-1.0) 12/19/21 07:09 AST 17 U/L (15-37) 12/19/21 07:09 ALT 21 U/L (12-78) 12/19/21 07:09 Alkaline Phosphatase 51 U/L (45-117) 12/19/21 07:09 Triglycerides 75 mg/dL (<150) 12/19/21 07:09 Cholesterol 134 mg/dL (<200) 12/19/21 07:09 HDL Cholesterol 48 mg/dL (40-60) 12/19/21 07:09 Cholesterol/HDL Ratio 2.79 12/19/21 07:09 Home Medications: Codeine/APAP [Tylenol #3*] 1 tab PO Q6HP PRN 09/23/19 Saw [place] 160 mg PO DAILY 09/23/19 Smz./Tmp. [Bactrim Ds 800 MG/160 MG] 1 tab PO BID 09/23/19 Aspirin [Aspirin EC 81 MG] 81 mg PO DAILY #30 12/19/21 Atorvastatin Calcium [Lipitor] 40 mg PO BEDTIME #30 tab 12/19/21 New Medications: Aspirin [Aspirin EC 81 MG] 81 mg PO DAILY #30 Atorvastatin Calcium [Lipitor] 40 mg PO BEDTIME #30 tab Diet: AHA Activity: Ad shahbaz Followup: Catracho Aranda MD [Primary Care Provider] - Bertin Norton MD [ACTIVE - CAN ADMIT] - 1-2 Days (Please call office on Monday12/20/2021 for arrangement for stress test.)
[2021-12-19] MEDS ORDERED: ATORVASTATIN 40 MG TAB PO SCH (21:00)
--- NOTE | 2021-12-21 12:39 | EKG ---
Test Date: 2021-12-18 Test Time: 19:04:18 Motor Vehicles Supervisor: TODDW MEASUREMENT RESULTS: Intervals: Rate: 95 ID: [id number] QRSD: 86 QT: 344 QTc: 432 [place]: P: 73 ID: [id number] QRS: 78 T: 59 INTERPRETIVE STATEMENTS: Sinus rhythm with occasional premature ventricular complexes and premature atrial complexes Possible Left atrial enlargement Borderline ECG Compared to ECG 10/01/2021 06:25:27 Atrial premature complex(es) now present Fusion complex(es) no longer present Electronically Signed On 12-21-21 12:33:44 CDT by Merritt Wheeler
== END 2021-12-19 12:01 | disposition home or self-care (01) ==
LOC: ER 18:40 → ERHOLD 22:49 → 2ND 23:11
PROVIDERS: ADMIT Internal Medicine; ATTEND Internal Medicine
DX: I25.708 Atherosclerosis of coronary artery bypass graft(s), unspecified, with other forms of angina pectoris (principal); I10 Essential (primary) hypertension; D64.9 Anemia, unspecified; R42 Dizziness and giddiness; N40.0 Benign prostatic hyperplasia without lower urinary tract symptoms; Z95.1 Presence of aortocoronary bypass graft; Z79.82 Long term (current) use of aspirin; Z79.899 Other long term (current) drug therapy; Z87.891 Personal history of nicotine dependence; Z20.822 Contact with and (suspected) exposure to COVID-19
CPT/HCPCS: 93005; 85025 ×2; 80048; 36415; 83735; 85610; 80061; 80076; 84443; 84484 ×3; 84439; 80053; 83880; 0240U; 71045; 99285; J1650; G0378 ×2

== ENCOUNTER 2022-01-17 20:04 | Observation (INO) | payer MEDICARE, BC ==
--- OUTSIDE RECORDS SUMMARY | 2022-01-17 20:11 | XMS REPORT | Continuity of Care Document ---
:1940 Author Organization [facility] t Address [address] [place] [address] Care Team Providers Name Role Phone Pollo [...] with 1-14 ity of nausea nausea 00:00: [address] Abdominal Abdominal Disease Active Uni vers pain, pain, 1-14 [place] of epigastric [place] [address] [place] [address] Fatigue, Fatigue, Disease Active Unive rs unspecifie unspecifie 1-14 it y of d type d type 00:00: [address] Urinary Urinary Disease Active Univers tract [...] (dyspnea 6-06 ity of on on 00:00: [place] exertion) exertion) 00 [facility] joana Branch Essential Essential Disease Active Uni vers hypertensi hypertensi 6-06 it y of on on 00:00: [place] [facility] Dyslipidem Dyslipidem Disease Active U nivers ia ia 6-06 ity of 00:00: [place] 00 Medical Branch 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 angina angina Added pectoris pectoris automatic ally from request for surgery [id number] Chest pain Chest pain Disease Active U [...] Added automatic ally from request for surgery [id number] Allergies, Adverse Reactions, Alerts This patient has no known allergies or adverse reactions. Social History Social Habit Start Date Stop Date Quantity Comments Source History of tobacco Cigarette Smoker University of use [facility] History SDKY University o f Alcohol Frequency [place] [facility] History [facility] University o f Alcohol Std Drinks [place] [facility] University o f Alcohol Binge [place] Medic al Branch Exposure to 2021-12-12 2022-01-11 Not sure University SARS-CoV-2 (event) 00:00:00 10:52:00 [facility] Alcohol intake 2022-01-11 2022-01-11 Current drinker Unive rsity of 00:00:00 00:00:00 of alcohol [facility] (finding) Branch Cigarettes smoked 2021-01-18 2021-01-18 Univers ity of current (pack per 00:00:00 00:00:00 [facility] ) - Reported Branch Cigarette 2021-01-18 2021-01-18 University of pack-years 00:00:00 00:00:00 [facility] Tobacco use and 2021-01-18 2021-01-18 Never used Universit y of exposure 00:00:00 00:00:00 [facility] Alcohol Comment 2021-01-06 2021-01-06 socially Universit y of 00:00:00 00:00:00 [facility] Sex Ass[birth year] At [birth year] Universit y of 00:00:00 00:00:00 [facility] Smoking Status Start Date Stop Date Source Former smoker 2021-01-18 00:00:00 2021-01-18 00:00:00 Universi ty of [facility] Medications Ordered Filled Start Stop Current Ordering Indication Dosage Frequency Signature Comments Components Source Medication Medication Date Date Medication? Clinician (SIG) Name Name rivastigmin Yes 1{patch Apply 1 Univers e 9.5 mg/24 4-25 } Patch to ity of hour patch 00:00: skin [place] 00 daily. Medical Branch RIVASTIGMIN 2021- No [id number] APPLY 1 Univers E 4.6 mg/24 4-25 04-25 [id number] PATCH ity of hour patch 00:00: 00:00 TOPICALLY [place] 00 :00 TO THE Medical SKIN DAILY Branch rivastigmin Yes [id number] 1{patch Apply 1 Univers e 4.6 mg/24 01-11 [id number] } Patch to it y of hour patch 00:00: skin [place] 00 daily. Medical Call Branch office for refill when script is completed. rivastigmin 2021- No [id number] 1{patch Apply 1 Univers e 4.6 mg/24 01-11 [id number] } Patch to i ty of hour patch 00:00: 00:00 skin [place] 00 :00 daily. Medical Call Branch office for refill when script is completed. sucralfate 2021- Yes [id number] 1000mg Take 10 mL Univers 100 mg/mL 10-20 by mouth ity o f suspension 00:00: 04:59 before [place] 00 :00 meals and Medical at bedtime Branch for 90 days. sucralfate 2021- Yes [id number] 1000mg Take 10 mL Univers 100 mg/mL 10-20 by mouth ity o f suspension 00:00: 04:59 before [place] 00 :00 meals and Medical at bedtime Branch for 90 days. ondansetron Yes [id number] 8mg Take 1 Univers (ZOFRAN) 8 1-14 tablet by ity of mg tablet 00:00: mouth [place] 00 every 8 Medical (eight) Branch hours as needed for N/V unresponsi ve to Promethazi ne. famotidine Yes [id number] 40mg Take 1 U nivers (PEPCID) 40 1-14 tablet by ity of mg tablet 00:00: mouth 2 [place] 00 (two) Medical times Branch daily. ondansetron Yes [id number] 8mg Take 1 Univers (ZOFRAN) 8 1-14 tablet by ity of mg tablet 00:00: mouth [place] 00 every 8 Medical (eight) Branch hours as needed for N/V unresponsi ve to Promethazi ne. famotidine Yes [id number] 40mg Take 1 U nivers (PEPCID) 40 1-14 tablet by ity of mg tablet 00:00: mouth 2 [place] 00 (two) Medical times Branch daily. proMETHazin Yes [id number] 25mg Take 1 Univers e 25 mg 1-10 tablet by ity of tablet 00:00: mouth [place] 00 every 6 Medical (six) Branch hours as needed for Nausea and Vomiting (N/V). proMETHazin 0 Yes [id number] 25mg Take 1 Univers e 25 mg 1-10 tablet by ity of tablet 00:00: mouth [place] 00 every 6 Medical (six) Branch hours as needed for Nausea and Vomiting (N/V). zolpidem 5 2020-09 Yes 5mg Take 5 mg Un mark mg tablet 2-23 by mouth ity of 00:00: at [place] 00 bedtime. Medical Branch zolpidem 5 2020-09 Yes 5mg Take 5 mg Un mark mg tablet 2-23 by mouth ity of 00:00: at [place] 00 bedtime. Medical Branch atorvastati Yes [id number] 80mg Take 1 Univers n 80 mg 7-13 tablet by ity of tablet 00:00: mouth at [place] 00 bedtime. Medical Branch clopidogreL 0 Yes [id number] 75mg Take 1 Univers 75 mg 7-13 tablet by ity of tablet 00:00: mouth [place] 00 daily. Medical Branch metoprolol Yes [id number] 25mg Take 1 Univers tartrate 25 7-13 tablet by ity of mg tablet 00:00: mouth [place] 00 every 12 Medical (twelve) Branch hours. atorvastati Yes [id number] 80mg Take 1 Univers n 80 mg 7-13 tablet by ity of tablet 00:00: mouth at [place] 00 bedtime. Medical Branch clopidogreL Yes [id number] 75mg Take 1 Univers 75 mg 7-13 tablet by ity of tablet 00:00: mouth [place] 00 daily. Medical Branch metoprolol Yes [id number] 25mg Take 1 Univers tartrate 25 7-13 tablet by ity of mg tablet 00:00: mouth [place] 00 every 12 Medical (twelve) Branch hours. mupirocin 2 Yes [id number] Apply to Univers % ointment 01-30 area(s) 3 ity of 00:00: (three) [place] 00 times Medical daily. Branch mupirocin 2 Yes [id number] Apply to Univers % ointment 01-30 area(s) 3 ity of 00:00: (three) [place] 00 times Medical daily. Branch aspirin 81 2020- No S/P CABG x 81mg Take 1 Univers mg chewable 01-28 3 tablet by it y of tablet 00:00: 04:59 mouth [place] 00 :00 daily for Medical 90 days. Branch atorvastati S/P CABG x 80mg Take 1 Univers n 80 mg 01-28 3 tablet by ity of tablet 00:00: 04:59 mouth at [place] 00 :00 bedtime Medical for 90 Branch days. clopidogreL S/P CABG x 75mg Take 1 Univers 75 mg 01-28 3 tablet by ity of tablet 00:00: 04:59 mouth [place] 00 :00 daily for Medical 90 days. Branch metoprolol S/P CABG x 25mg Take 1 Univers [...] daily for Medical 30 days. Branch acetaminoph S/P CABG x 650mg Take 2 Univers [...] Yes 25mg 25 mg, Unive rs tartrate -04 Oral, ity of (LOPRESSOR) 13:00: Q12H, [place] tablet 25 00 First dose Medi joana mg (after Branch last modificati on) on Mon01/26/21 at 0800, Until Discontinu ed, Routine potassium No 44meq 44 mEq, IV Univers phosphate 01-26 Piggyback, ity of 44 mEq in 11:08: 12:56 ONCE, 1 [place] NaCl 0.9% 00 :00 dose, [facility] Medic al (NS) 250 mL 01/26/21 at [facility] piggyback 0615, 250 mL metoprolol No 12.5mg 12.5 mg, Univers tartrate 01-26- Oral, ity of (LOPRESSOR) 04:45: 04:33 ONCE, 1 [place] half tablet 00 :00 dose, Mon Med ical 12.5 mg 01/25/21 at Branch 2345, Routine metoprolol No 12.5mg 12.5 mg, Univers succinate 01-25- [...] 12.5g 12.5 g, IV Un mark (ALBUMINAR- 01-24- Infusion, it y of 5) 5 % 20:15: 20:56 ONCE, 1 [place] injection 00 :00 dose, [facility] Medic al 12.5 g 01/24/21 at Branch [...] joana 400 mg/5 mL on [facility] suspension 01/24/21 at 30 mL 1400, Until Discontinu ed, Routine lactated 2020- No 250mL at 999 Unive rs ringers IV 01-24 05-02 mL/hr, 250 it y of infusion 15:45: 15:15 mL, [place] 250 mL 00 :00 Intravenou Medical s, ONCE, 1 [place] dose, [facility] 01/24/21 at 1045, Routine clopidogreL Yes 75mg 75 mg, Univ ers (PLAVIX) 01-24 Oral, ity of tablet 75 14:00: DAILY, [place] mg 00 First dose Medical on [facility] 01/24/21 at 0900, Until Discontinu ed, Routine
[employer] team member approving Restricted medication : ESCOBAR CABRERA aspirin Yes 81mg 81 mg, Univers chewable 01-24 Oral, ity of tablet 81 14:00: DAILY, [place] mg 00 First dose Medical on [facility] 01/24/21 at 0900, Until Discontinu ed, Routine pantoprazol 2020- No 40mg 40 mg, Uni vers e 01-24 Oral, ity of (PROTONIX) 14:00: 13:59 DAILY, 30 [place] EC tablet 00 :00 doses, Medical 40 mg First dose Branch on [facility] 01/24/21 at 0900, Last dose on 02/22/21 [...] - Oral, ity of (TYLENOL 14:02: Q6HPRN, [place] #3) 300-30 36 Starting Medic al mg tablet 1 01/23/21 Br anch tablet at 0902, Until Discontinu ed, Routine, Pain (scale 4-6) sodium 2020-0 2020- No 30mmol 30 mmol, [facility] ers phosphate 01-23 05- IV ity of 30 mmol in 12:45: 16:59 Piggyback, [place] NaCl 0.9% 00 :00 ONCE, 1 Medical (NS) 250 mL dose, Sat [facility] piggyback 01/23/21 at 0745, 250 mL digoxin 2020- No 250ug 250 mcg, [facility] ers (LANOXIN) 01-23 Intravenou ity of injection 01:15: 00:58 s, ONCE, 1 [place] 250 mcg 00 :00 dose, [facility] Medical 01/22/21 at Branch 2015, Routine potassium No 40meq 40 mEq, Uni vers chloride 40 01-23 Intravenou i ty of mEq in 100 01:00: 04:58 s, ONCE, 1 [place] mL IVPB 00 :00 dose, Fri Medical 01/22/21 at Branch 2000, 100 mL digoxin 2020- No 250ug 250 mcg, [facility] ers (LANOXIN) 01-22 Intravenou ity of injection 20:01: 20:06 s, ONCE, 1 [place] 250 mcg 00 :00 dose, [facility] 01/22/21 at Branch 1515, Routine digoxin 2020- No 250ug 250 mcg, [facility] ers (LANOXIN) 01-22 Intravenou ity of injection 17:15: 16:15 s, ONCE, 1 [place] 250 mcg 00 :00 dose, [facility] 01/22/21 at Branch 1215, Routine furosemide No 20mg 20 mg, [facility] ers (LASIX) 01-22 Slow IV ity of injection 17:15: 18:46 Push, [place] 20 mg 00 :00 ONCE, 1 Medical dose, Fri [place] 01/22/21 at 1215, Routine albumin 2020- No [...] 00 :55 CONTINUOUS Medical , Starting Branch Mon01/22/21 at 1045, Until 01/23/21 at 0906, EMBER [...] [place] 250 mcg 00 :00 dose, [facility] Medical 01/22/21 at Branch 0915, Routine pantoprazol 2020- No 40mg 40 mg, Uni vers e 01-22 05 Oral, ity of (PROTONIX) 14:00: 14:06 DAILY, [place] EC tablet 00 :55 First dose Medi joana 40 mg on Mon Branch 01/22/21 at 0900, Until Discontinu ed, Routine D5W-LR IV 2020- No 1000mL at 42 Univ ers infusion 01-2230 mL/hr, IV ity o f 1,000 mL 13:15: 15:40 Infusion, [place] 00 :21 CONTINUOUS Medical , Starting Branch 01/22/21 at 0815, Until [facility] 01/22/21 at 1040, EMBER digoxin No .5mg 500 mcg Univer s (LANOXIN) 01-22 (0.5 mg), ity of injection 11:29: 11:47 Intravenou [place] 500 mcg 00 :00 s, ONCE, 1 Medica l dose, [facility] 01/22/21 at 0630, Routine sodium No 30mmol 30 mmol, Univ ers phosphate 01-22 IV ity of 30 mmol in 10:24: 15:28 Piggyback, [place] NaCl 0.9% 00 :00 ONCE, 1 Medical (NS) 250 mL dose, Fri [facility] piggyback 01/22/21 at 0530, 250 mL metoprolol No 12.5mg 12.5 mg, Univers tartrate 01-22 Oral, ONCE ity of (LOPRESSOR) 09:13: 09:27 NOW, 1 [place] half tablet 00 :00 dose, Fri Med ical 12.5 mg 01/22/21 at [place] 0415, Routine calcium No 2g 2 g, IV Univer s gluconate 2 01-22 Infusion, it y of g in NaCl 09:09: 09:28 ONCE, 1 [place] 100 mL 00 :00 dose, Fri Medical (ISO-OSM) 01/22/21 at [facility] RTU IV 0415, infusion 2 Routine g furosemide No 20mg 20 mg, Univ ers (LASIX) 01-22 Slow IV ity of injection 08:39: 09:05 Push, [place] 20 mg 00 :00 ONCE, 1 Medical dose, [facility] 01/22/21 at 0345, Routine atorvastati No 80mg 80 mg, Uni vers n (LIPITOR) 01-2201 Oral, QHS, i ty of tablet 80 02:00: 14:06 First dose [place] mg 00 :55 on [place] Medical 01/21/21 at Branch 2100, Until Discontinu ed, Routine metoprolol No 12.5mg 12.5 mg, Univers tartrate 01-22 Oral, BID, ity of (LOPRESSOR) 01:00: 15:21 First dose [place] half tablet 00 :01 (after Medica l 12.5 mg last Branch modificati on) on [place] 01/21/21 at 2000, Until Discontinu ed, Routine clopidogreL 2020- No 75mg 75 mg, Uni vers (PLAVIX) 01-21 Oral, ity of tablet 75 22:00: 14:06 DAILY, [place] mg 00 :55 First dose Medical on [facility] Branch 01/21/21 at 1700, Until Discontinu ed, Routine
[employer] team member approving Restricted medication : ESCOBAR CABRERA albumin No 25g 25 g, IV Unive rs (ALBUMINAR 01-21 Infusion, ity of 25%) 25 % 15:45: 14:39 ONCE, 1 [place] injection 00 :00 dose, [facility] Medic al 25 g 01/21/21 at Branch 1045, 100 mL
Marie cation: NON-APPROV ED INDICATION - PHARMACY WILL CALL ORDERING PROVIDER<b r>Specific Indication : post cabg
Fa culty Requesting Approval: ANATOLIY CARDONA sennosides 2020- No 8.6mg 8.6 mg, Un mark (SENOKOT) 01-21 Oral, ity of tablet 8.6 14:00: 14:06 DAILY, [place] mg 00 :55 First dose Medical on [facility] 01/21/21 at 0900, Until Discontinu ed, Routine docusate 2020- No 100mg 100 mg, Univ ers (COLACE) 01-21 Oral, ity of capsule 100 14:00: 14:06 DAILY, [place] mg 00 :55 First dose Medical on [facility] Branch 01/21/21 at 0900, Until Discontinu ed, Routine magnesium 2020- No 2g 2 g, IV Univ ers sulfate in 01-21 Piggyback, it y of water 2 13:00: 12:43 ONCE, 1 [place] gram/50 mL 00 :00 dose, [facility] Medi joana (4 %) 01/21/21 at Branch infusion 2 0800, g Routine aspirin No 81mg 81 mg, Univers chewable 01-21 0501 Oral, ity of tablet 81 06:30: 14:06 [...] :00 Piggyback, Medical ONCE, 1 Branch dose, [facility] 01/20/21 at 2315, STAT potassium No 15mmol IV Unive rs phosphate 01-21 Piggyback, ity of 15 mmol in 04:00: 07:22 ONCE, 1 [place] NaCl 0.9% 00 :00 dose, [facility] Medic al (NS) 150 mL 01/20/21 at anch piggyback 2300, 150 mL lidocaine 2020- No 100mg 100 mg, Uni vers 2% 01-21 Slow IV ity of (XYLOCAINE) 03:45: 03:39 Push, [place] syringe 100 00 :00 ONCE, 1 Medic al mg dose, [facility] Branch 01/20/21 at 2245, Routine calcium 2020- No 2g 2 g, IV Univer s gluconate 2 01-21 Infusion, it y of g in NaCl 01:00: 01:18 ONCE, 1 [place] 100 mL 00 :00 dose, [facility] Medical (ISO-OSM) 01/20/21 at [facility] RTU IV 2000, infusion 2 Routine g DOBUTamine 2020- No 2.5ug/k 2.5-20 U nivers (DOBUTREX) 01-21 g/min mcg/kg/min i ty of 500 mg [...] 2020- No 150ug 150 mcg, Uni vers [facility] (5 01-20 04-30 Intravenou ity of mcg/mL NS) 23:30: 13:00 s, 30 mL, [place] 00 :33 CONTINUOUS Medical , Starting Branch Mon01/20/21 at 1830, Until Mon01/22/21 at 0800 propofoL IV 2020- No 5ug/kg/ 5-50 Un mark infusion 01-20 04-29 min mcg/kg/min ity of 23:23: 23:22 ?50 kg [place] 25 :25 (1.5-15 Medical mL/hr), IV Branch [...] Routine, Pain (scale 7-10) metoprolol 2020- No [id number] 25mg 25 mg, Univers tartrate 01-20 Oral, [...] joana infarction) 90 days. [facility] atorvastati 2020- No NSTEMI 80mg Take 1 U nivers n 80 mg 01-09 (non-ST tablet by ity of tablet 00:00: 00:00 elevated mouth [place] 00 :00 myocardial every Medical infarction) evening Bran h for 90 days. metoprolol 2020- No [...] for Medi joana infarction) 90 days. Bran lisinopriL 2020- No NSTEMI 2.5mg Take 1 U nivers 2.5 mg 01-09 (non-ST tablet by ity of tablet 00:00: 00:00 elevated mouth [place] 00 :00 myocardial daily for Medi joana infarction) 90 days. Bran Immunizations Ordered Filled Immunization Date Status Comments [facility] e Immunization Name Name SARS-COV-2 COVID-19 2021-08-27 Completed Unive rsity of MODERNA BOOSTER 00:00:00 [facility] ical VACCINE Branch SARS-COV-2 COVID-19 2021-08-27 Completed Unive rsity of MODERNA BOOSTER 00:00:00 [facility] VACCINE Branch SARS-COV-2 COVID-19 2020-12-20 Completed Unive rsity of MODERNA VACCINE 00:00:00 [facility] ical Branch SARS-COV-2 COVID-19 2020-12-20 Completed Unive rsity of MODERNA VACCINE 00:00:00 [facility] Branch SARS-COV-2 COVID-19 2020-12-20 Completed Unive rsity of MODERNA VACCINE 00:00:00 [facility] ical Branch SARS-COV-2 COVID-19 2020-11-22 Completed Unive rsity of MODERNA VACCINE 00:00:00 [facility] Branch SARS-COV-2 COVID-19 2020-11-22 Completed Unive rsity of MODERNA VACCINE 00:00:00 [facility] SARS-COV-2 COVID-19 2020-11-22 Completed Unive rsity of MODERNA VACCINE 00:00:00 [facility] Influenza Virus 2020-08-08 Completed Universit y of Vaccine 00:00:00 [facility] Influenza Virus 2020-08-08 Completed Universit y of Vaccine 00:00:00 [facility] Influenza Virus 2020-08-08 Completed Universit y of Vaccine 00:00:00 [facility] Vital Signs Vital Name Observation Time Observation Value Comments Source Systolic blood 2022-01-11 16:10:00 120 mm[Hg] Univer sity of pressure [facility] Diastolic blood 2022-01-11 16:10:00 77 mm[Hg] Unive rsity of pressure [facility] Heart rate 2022-01-11 16:10:00 79 /min [facility] Body weight 2022-01-11 16:10:00 47.628 kg [facility] BMI 2022-01-11 16:10:00 18.02 kg/m2 [facility] Systolic blood 2021-01-28 15:45:00 105 mm[Hg] Univer sity of [facility] Diastolic blood 2021-01-28 15:45:00 62 mm[Hg] Unive rsity of pressure [facility] Heart rate 2021-01-28 15:45:00 104 /min [facility] Body temperature 2021-01-28 12:50:00 36.61 Nora [facility] Oxygen saturation in 2021-01-28 12:50:00 96 /min [facility] Arterial blood by [facility] Pulse oximetry Branch Body weight 2021-01-28 04:00:00 51.393 kg [facility] BMI 2021-01-28 04:00:00 18.29 kg/m2 [facility] Respiratory rate 2021-01-28 00:00:00 16 /min [facility] Body height 2021-01-20 11:31:00 167.6 cm [facility] Procedures Procedure Date / Time Performing Clinician Source Performed POCT GLUCOSE 2021-01-28 13:37:00 Escobar Cabrera [facility] (AUTOMATED) Medical Branch POCT GLUCOSE 2021-01-28 01:37:00 Escobar Cabrera Univers ity [facility] (AUTOMATED) Medical Branch POCT GLUCOSE 2021-01-27 23:27:00 Escobar Cabrera Univers ity [facility] (AUTOMATED) Medical Branch POCT GLUCOSE 2021-01-27 18:43:00 Escobar Cabrera Univers ity [facility] (AUTOMATED) Medical Branch PHOSPHORUS 2021-01-27 14:35:00 Dongur, Ju Ana M Universi ty [facility] Medical Branch MAGNESIUM 2021-01-27 14:35:00 Dongur, Ju Ana M [facility] Branch BASIC METABOLIC PANEL 2021-01-27 14:35:00 Hemal Ju Ana M [facility] (NA, K, CL, CO2, Medical Branch GLUCOSE, BUN, CREATININE, [place]) POCT GLUCOSE 2021-01-27 14:24:00 Escobar Cabrera Univers ity [facility] (AUTOMATED) Medical Branch POCT GLUCOSE 2021-01-27 01:11:00 Escobar Cabrera Univers ity [facility] (AUTOMATED) Medical Branch PHOSPHORUS 2021-01-26 09:18:00 [facility] MAGNESIUM 2021-01-26 09:18:00 [facility] BASIC METABOLIC PANEL 2021-01-26 09:18:00 [facility] (NA, K, CL, CO2, Medical Branch GLUCOSE, BUN, CREATININE, [place]) CBC WITH DIFF 2021-01-26 09:18:00 [facility] Branch BASIC METABOLIC PANEL 2021-01-26 05:24:00 [facility] (NA, K, CL, CO2, Medical Branch GLUCOSE, BUN, CREATININE, CA) CBC WITH DIFF 2021-01-26 05:24[facility] 2021-01-26 01:12:00 Escobar Cabrera Univers ity [facility] (AUTOMATED) Medical Branch POCT GLUCOSE 2021-01-25 21:52:00 Escobar Cabrera Univers ity [facility] (AUTOMATED) Medical Branch POCT GLUCOSE 2021-01-25 14:00:00 Escobar Cabrera [facility] (AUTOMATED) [facility] XR CHEST 2 VW 2021-01-25 10:25:24 Syed [facility] HB ECG ROUTINE & RHYTHM 2021-01-25 08:48:[address] [facility] STRIP Medical Branch MAGNESIUM 2021-01-25 08:32:00 [facility] 2021-01-25 08:32:00 [facility] (NA, K, CL, CO2, [facility] GLUCOSE, BUN, CREATININE, [place]) POCT GLUCOSE 2021-01-24 17:42:00 Escobar Cabrera [facility] (AUTOMATED) [facility] Branch DIGOXIN 2021-01-24 15:09:00 Syed [facility] POCT GLUCOSE 2021-01-24 13:53:00 Escobar Cabrera [facility] (AUTOMATED) [facility] BASIC METABOLIC PANEL 2021-01-24 10:06:00 Syed [facility] (NA, K, CL, CO2, Medical Branch GLUCOSE, BUN, CREATININE, [place]) CBC WITH DIFF 2021-01-24 10:06:00 Syed [facility] POCT GLUCOSE 2021-01-24 01:55:00 Escobar Cabrera [facility] (AUTOMATED) [facility] Branch POCT GLUCOSE 2021-01-23 23:33:00 Escobar Cabrera [facility] (AUTOMATED) [facility] POCT GLUCOSE 2021-01-23 18:31:00 Escobar Cabrera [facility] (AUTOMATED) [facility] PHOSPHORUS 2021-01-23 09:22:00 Silvino Eason [facility] MAGNESIUM 2021-01-23 09:22:00 Silvino Eason [facility] BASIC METABOLIC PANEL 2021-01-23 09:22:00 Silvino Eason [facility] (NA, K, CL, CO2, Medical Branch GLUCOSE, BUN, CREATININE, CA) CBC WITHOUT DIFF 2021-01-23 09:22:00 [facility]W 2021-01-23 08:15:00 Silvino Eason [facility] CBC WITHOUT DIFF 2021-01-23 01:47:00 [facility] POTASSIUM SERUM 2021-01-22 22:00:00 Ольга Francisco [facility] PREPARE PACKED RBC 2021-01-22 17:04:53 Mil Yousif [facility] HB ECG ROUTINE & RHYTHM 2021-01-22 09:11:17 Deni [facility] PHOSPHORUS 2021-01-22 09:04:00 Brendan [facility] MAGNESIUM 2021-01-22 09:04:00 [facility] BASIC METABOLIC PANEL 2021-01-22 09:04:00 Anatoliy Cardona [facility] (NA, K, CL, CO2, Medical Branch GLUCOSE, BUN, CREATININE, CA) CBC WITH DIFF 2021-01-22 09:04:00 Brendan [facility] Dave [facility] XR CHEST 1 VW 2021-01-22 07:57:00 Brendan [facility] HB ECG ROUTINE & RHYTHM 2021-01-21 12:26:52 Benji Olvera [facility] ABG+COOX+NA+K+GLU+CA2+ 2021-01-21 10:09:00 Benji Olvera [facility] PHOSPHORUS 2021-01-21 10:08:00 [facility] 2021-01-21 10:08[facility]00 [facility]OLIC PANEL 2021-01-21 10:08:00 [facility] ([facility], K, CL, CO2, [facility] GLUCOSE, BUN, CREATININE, CA) CBC WITH DIFF 2021-01-21 10:08:00 [facility] / INR 2021-01-21 10:08:00 Benji Olvera, [facility] XR CHEST 1 VW 2021-01-21 07:24:00 [facility] 2021-01-21 03:09:00 Red [facility] CBC WITHOUT DIFF 2021-01-21 01:25:00 Red [facility] ABG+COOX+NA+K+GLU+CA2+ 2021-01-21 01:25:00 Benji Olvera, [facility] XR CHEST 1 VW 2021-01-20 22:55:00 Red [facility] XR ABDOMEN 1 VW 2021-01-20 22:49:00 Benji Olvera, [facility] XR CHEST 1 VW 2021-01-20 22:49:00 Benji Olvera [facility] ABG+COOX+NA+K+GLU+CA2+ 2021-01-20 22:44:00 Benji Olvera, [facility] PHOSPHORUS 2021-01-20 22:42:00 Benji Olvera [facility] MAGNESIUM 2021-01-20 22:42:00 [facility] BASIC [facility]OLIC PANEL 2021-01-20 22:42:00 Benji Olvera [facility] (NA, K, CL, CO2, [facility] GLUCOSE, BUN, CREATININE, CA) CBC WITH DIFF 2021-01-20 22:42:00 [facility] / MSSA SCREEN BY 2021-01-20 22:42:00 Benji Olvera [facility] 2021-01-20 22:18:54 Samples, [facility] TRANSFUSE PLATELETS 2021-01-20 22:00:18 Samples, [facility] PREPARE PLATELETS 2021-01-20 21:54:03 Samples, [facility] CBC WITH DIFF 2021-01-20 21:47:17 Escobar Cabrera [facility] PROTHROMBIN TIME / INR 2021-01-20 21:47:17 Escobar Cabrera [facility] ACTIVATED PARTIAL 2021-01-20 21:47:17 Escobar Cabrera [facility] FIBRINOGEN 2021-01-20 21:47:17 Escobar Cabrera [facility] ABG+COOX+NA+K+GLU+CA2+ 2021-01-20 21:24:00 Escobar Cabrera [facility] TRANSFUSE PACKED RBC 2021-01-20 21:12:39 Samples, [facility] TRANSFUSE PACKED RBC 2021-01-20 21:09:33 Samples, [facility] 2021-[facility] 21:04:00 Escobar Cabrera [facility] POCT ACT HIGH RANGE 2021-01-20 21:01:00 Escobar Cabrera [facility] TRANSFUSE PACKED RBC 2021-01-20 20:25:19 Samples, [facility] ACUTE CARE 2021-01-20 20:21:00 Escobar Cabrera [facility] TRANSFUSE PACKED RBC 2021-01-20 20:06:11 Samples, [facility] 2021-01-20 19:25:00 Escobar Cabrera [facility] 2021-01-20 18:59:00 Escobar Cabrera [facility] POCT ACT HIGH RANGE 2021-01-20 18:52:00 Escobar Cabrera [facility] PREPARE PACKED RBC 2021-01-20 18:06:15 Samples, [facility] ACUTE CARE 2021-01-20 17:29:00 Escobar Cabrera [facility] PREPARE PACKED RBC 2021-01-20 17:16:28 Juliana Vinson [facility] CORONARY ARTERY BYPASS 2021-01-20 16:32:[address] [facility] GRAFT [facility] ENDOSCOPIC VEIN HARVEST 2021-01-20 16:32:00 Escobar Cabrera [facility] CBC WITH DIFF 2021-01-20 13:27:00 Juliana Vinson [facility] ABORH CONFIRMATION 2021-01-20 13:27:00 Escobar Cabrera [facility] HB ABO GROUPING 2021-01-20 12:20:00 Juliana Vinson [facility] BASIC METABOLIC PANEL 2021-01-20 12:17:00 Juliana Vinson [facility] (NA, K, CL, CO2, [facility] GLUCOSE, BUN, CREATININE, CA) PROTHROMBIN TIME / INR 2021-01-20 12:17:00 Juliana Vinson [facility] URINALYSIS 2021-01-20 12:17:00 Juliana Vinson [facility] HB ECG ROUTINE & RHYTHM 2021-01-20 11:40:07 [facility] Planned Activity Planned Date Details Comments Source Future Scheduled 2022-01-20 Depression screening Uni versity of Test 00:00:00 (procedure) [code = [facility] dical 250970876] Branch Future Scheduled 2003 Medicare Annual Universi ty of Test 00:00:00 Wellness Visit [facility] (procedure) [code = Branch [id number]] Future Scheduled 2003 PNEUMOCOCCAL University of Test 00:00:00 VACCINES 65+ (1 of 1 [place] [facility] - PPSV23) [code = Branch PNEUMOCOCCAL VACCINES 65+ (1 of 1 - PPSV23)] Future Scheduled 1988 Zoster Recombinant Unive rsity of Test 00:00:00 Vaccine (SHINGRIX) [place] [facility] (1 of 2) [code = Branch Zoster Recombinant Vaccine (SHINGRIX) (1 of 2)] Future Scheduled 1957 DTaP,Tdap,and Td Univers ity of Test 00:00:00 Vaccines (1 - Tdap) [place] Me keller [code = Branch DTaP,Tdap,and Td Vaccines (1 - Tdap)] Future Scheduled ABG+COOX+NA+K+GLU+CA EVERY 4 HOURS Un iversity of Test 2+ (While Intubated) (START TIME Aisha beckman [code = 56586] ADJUSTABLE) for Branch 24 Hours starting 01/20/2021 until 01/21/2021, 3 completed Encounters Start End Encounter Admission Attending Care Care Encounter Source Date/Time Date/Time Type Type Clinicians Facility Department ID 2022-01-15 2022-01-15 Refill Ivan [facility] [id number] Univers 00:00:00 00:00:00 [facility] [id number] ity of [place]IV[place] 4.2.7.2.686 Royal as PABLO?BLEA [id number] [address] OFFICE BUILDING 2022-01-11 2022-01-11 Office Ivan [facility] [id number] Univers 11:20:00 12:15:14 Visit [facility] 350.1.13.10 ity of [place] 4.2.7.2.686 [place] as PABLO?BLEA [id number] [address] OFFICE BUILDING 2021-02-24 2021-02-24 Transition Karthikyean Fierro [id number] 00:00:00 00:00:00 of Care Kade Marshall [id number] [place] 4.2.7.2.686 [id number] 2021-02-23 2021-02-23 Urgent Provider, [facility] [id number] 15:56:41 16:41:19 Care [facility] [id number] Care [place] 4.2.7.2.686 Professio [id number] nal 044 Office [address] One 2021-02-20 2021-02-21 Emergency Kassidy Del Toro [facility] 1.2.840.1 [id number] 16:49:00 15:19:00 Catracho Husain 350.1.13.10 [place] 4.2.7.2.686 [place] [id number] 2021-02-11 2021-02-11 Office YNES Cabrera 1.2.840.114 [id number] 12:54:32 13:57:50 Visit Escobar Joseph [facility] 350.1.13.10 [facility] 4.2.7.2.686 [id number] Results Test Description Test Time Test Comments Results Result Comments Source POCT GLUCOSE (AUTOMATED) 2021-01-28 13:37:42 Test Item Value Reference Range Interpretation Comme nts POCT GLU (test code = 8119390067) 124 mg/dL 70-110 H Notified Provider Lab Interpretation (test code = 38590-6) Abnormal [facility] GLUCOSE (AUTOMATED)2021-01-28 01:38:13 Test Item Value Reference Range Interpretation Comments POCT GLU (test code = 2295014149) 130 mg/dL 70-110 H Lab Interpretation (test code = Abnormal 57958-7) [facility] GLUCOSE (AUTOMATED)2021-01-27 23:28:05 Test Item Value Reference Range Interpretation Comments POCT GLU (test code = 95 mg/dL 70-110 Notifi ed Provider [id number]) Lab Interpretation (test Normal code = 87215-9) [facility] GLUCOSE (AUTOMATED)2021-01-27 18:51:48 Test Item Value Reference Range Interpretation Comments POCT GLU (test code = 2298010627) 95 mg/dL 70-110 Lab Interpretation (test code = Normal 62210-8) [facility] METABOLIC PANEL (NA, K, CL, CO2, GLUCOSE, BUN, CREATININE, CA)2021-01-27 15:12:56 Test Item Value Reference Range Interpretation Comments NA (test code = 138 mmol/L 135-145 3182989837) K (test code = 4.0 mmol/L 3.5-5.0 3301228241) CL (test code = 103 mmol/L 98-108 6540182326) CO2 TOTAL (test code = 29 mmol/L 23-31 1620709578) AGAP (test code = 6 2-16 3742768196) BUN (test code = 13 mg/dL 7-23 2762876167) GLUCOSE (test code = 135 mg/dL 70-110 H 4004961630) CREATININE (test code = 0.55 mg/dL 0.60-1.25 L 6313918206) CALCIUM (test code = 8.2 mg/dL 8.6-10.6 L 3349932007) eGFR (test code = 142.6 mL/min/1.73m2 3306148604) CARLIE (test code = CARLIE) Association of [...] tests). Lab Interpretation Abnormal (test code = 83103-1) [facility] 15:12:56 Test Item Value Reference Range Interpretation Comments MAGNESIUM (test code = 3740018859) 2.2 mg/dL 1.7-2.4 Lab Interpretation (test code = Normal 72674-8) [facility]2021-[facility]-05 15:12:56 Test Item Value Reference Range Interpretation Comments PHOSPHORUS (test code = 0451813608) 2.2 mg/dL 2.5-5.0 L Lab Interpretation (test code = Abnormal 66935-6) [facility]2021-01-27 14:39:58 Test Item Value Reference Range Interpretation Comments POCT GLU (test code = 140 mg/dL 70-110 H Notifi ed Provider [id number]) Lab Interpretation (test Abnormal code = 66789-4) [facility]+COOX+NA+K+GLU+CA2+2021-01-27 04:22:04 Test Item Value Reference Range Interpretation Comments PH (test code = 2) 7.40 7.35-7.45 PCO2 (test code = 30 See_Comment L [Automat ed message] 9353089337) The system [employer] h generated this result transmit thuy reference range : 35 - 45 mmHg. The reference range was not used to interpret this result as normal/abnormal . PO2 (test code = 332 See_Comment H [Automated message] 4697301849) The system [employer] h generated this result transmit thuy reference range : 80 - 100 mmHg. The reference range was not used to interpret this result as normal/abnormal . HCO3 (test code = 18 See_Comment L [Automate d message] 7674410109) The system [employer] generated this result transmit thuy reference range : 22 - 26 mEq/L. The reference range was not used to interpret this result as normal/abnormal . BE (test code = -5.8 See_Comment L [Automated message] 1369161954) The system [employer] generated this result transmit thuy reference range : -3.0 - 3.0 mEq/ L. The reference r jaswinder was not used to interpret this result as normal/abnormal . THB (test code = 8.1 g/dL 13.5-18.0 LL 4089227956) %O2HB (test code = 99.5 % 94.0-99.0 H 1275421612) %COHB ART (test code = 0.0 % 0.0-1.5 7054777215) %METHB ART (test code = 0.1 % 0.4-1.5 L 4009107742) VOL%O2 ART (test code = 12.2 % 15.0-23.0 L 0078165672) NA (test code = 133 mmol/L 135-145 L 0292051202) K+ (test code = 4.4 mmol/L 3.5-5.0 1843505217) AC CA IONZ (test code = 5.10 mg/dL 4.50-5.30 5567329736) GLUCOSE (test code = 151 mg/dL 70-110 H 3902185284) Lab Interpretation Abnormal (test code = 50714-8) [facility] GLUCOSE (AUTOMATED)2021-01-27 01:12:43 Test Item Value Reference Range Interpretation Comments POCT GLU (test code = 7539251925) 133 mg/dL 70-110 H Lab Interpretation (test code = Abnormal 66961-2) [facility]2021-05-04 10:02:04 Test Item Value Reference Range Interpretation Comments MAGNESIUM (test code = 8527727182) 2.3 mg/dL 1.7-2.4 Lab Interpretation (test code = Normal 95254-1) [facility]2021-05-04 10:02:04 Test Item Value Reference Range Interpretation Comments PHOSPHORUS (test code = 4917101688) 1.3 mg/dL 2.5-5.0 L Lab Interpretation (test code = Abnormal 19769-9) [facility] (NA, K, CL, CO2, GLUCOSE, BUN, CREATININE, CA)2021-01-26 10:02:03 Test Item Value Reference Range Interpretation Comments NA (test code = 137 mmol/L 135-145 9909638162) K (test code = 3.8 mmol/L 3.5-5.0 4478354849) CL (test code = 102 mmol/L 98-108 0310260106) CO2 TOTAL (test code = 30 mmol/L 23-31 7668854247) AGAP (test code = 5 2-16 2452406067) BUN (test code = 16 mg/dL 7-23 7575267345) GLUCOSE (test code = 98 mg/dL 70-110 2199755228) CREATININE (test code = 0.51 mg/dL 0.60-1.25 L 5436829895) CALCIUM (test code = 7.9 mg/dL 8.6-10.6 L 6728993238) eGFR (test code = 155.6 mL/min/1.73m2 4535930781) CARLIE (test code = CARLIE) Association of [...] tests). Lab Interpretation Abnormal (test code = 96434-7) [facility] WITH [id number] 09:33:39 Test Item Value Reference Range Interpretation Comments WBC (test code = 6.26 See_Comment [Automated 9890-2) message] The sy stem which generated this [...] (test code = 53.0 fL 38.5-51.6 H 40835-8) RDW-CV (test code = 15.0 % 12.1-15.4 788-0) PLT (test code = 196 See_Comment [Automated 777-3) message] The sy stem which generated this result transmitted reference range : 150 - 328 10*3/ ?L. The reference r jaswinder was not used to interpret this result as normal/abnormal . MPV (test code = 10.1 fL 9.8-13.0 16047-3) NRBC/100 WBC (test 0.0 See_Comment [Automat ed code = 1199744541) message] The system which generated this result transmitted reference range : 0.0 - 10.0 /100 WBCs. The refer ence range was not u sed to interpret th is result as normal/abnormal . NRBC x10^3 (test code <0.01 See_Comment [Auto mated = 5625218043) message] The s ystem which generated this result transmitted reference range : 10*3/?L. The reference range was not used to interpret this result as normal/abnormal . GRAN MAT (NEUT) % 70.2 % (test code = 770-8) IMM GRAN % (test code 0.60 % = 8235891102) LYMPH % (test code = 17.7 % 736-9) MONO % (test code = 9.6 % 5905-5) EOS % (test code = 1.4 % 713-8) BASO % (test code = 0.5 % 706-2) GRAN MAT x10^3(ANC) 4.39 10*3/uL 1.99-6.95 (test code = 3112381957) IMM GRAN x10^3 (test 0.04 10*3/uL 0.00-0.06 code = 9833224349) LYMPH x10^3 (test code 1.11 10*3/uL 1.09-3.23 = 731-0) MONO x10^3 (test code 0.60 10*3/uL 0.36-1.02 = 742-7) EOS x10^3 (test code = 0.09 10*3/uL 0.06-0.53 711-2) BASO x10^3 (test code 0.03 10*3/uL 0.01-0.09 = 704-7) Lab Interpretation Abnormal (test code = 39077-6) [facility] METABOLIC PANEL (NA, K, CL, CO2, GLUCOSE, BUN, CREATININE, CA)2021-01-26 06:12:45 Test Item Value Reference Range Interpretation Comments NA (test code = 137 mmol/L 135-145 1452487283) K (test code = 4.1 mmol/L 3.5-5.0 7991469098) CL (test code = 102 mmol/L 98-108 9338492762) CO2 TOTAL (test code = 31 mmol/L 23-31 9597098241) AGAP (test code = 4 2-16 6334852402) BUN (test code = 17 mg/dL 7-23 2874553939) GLUCOSE (test code = 140 mg/dL 70-110 H 2634635559) CREATININE (test code = 0.61 mg/dL 0.60-1.25 1652321313) CALCIUM (test code = 8.3 mg/dL 8.6-10.6 L 2739052697) eGFR (test code = 126.6 mL/min/1.73m2 0402607169) CARLIE (test code = CARLIE) Association of [...] tests). Lab Interpretation Abnormal (test code = 35878-2) [facility] WITH [id number] 05:39:20 Test Item Value Reference Range Interpretation Comments WBC (test code = 6.64 See_Comment [Automated 5567-2) message] The sy stem which generated this [...] (test code = 52.5 fL 38.5-51.6 H 20813-3) RDW-CV (test code = 15.1 % 12.1-15.4 788-0) PLT (test code = 223 See_Comment [Automated 777-3) message] The sy stem which generated this result transmitted reference range : 150 - 328 10*3/ ?L. The reference r jaswinder was not used to interpret this result as normal/abnormal . MPV (test code = 9.8 fL 9.8-13.0 06496-0) NRBC/100 WBC (test 0.0 See_Comment [Automat ed code = 8283707583) message] The system which generated this result transmitted reference range : 0.0 - 10.0 /100 WBCs. The refer ence range was not u sed to interpret th is result as normal/abnormal . NRBC x10^3 (test code <0.01 See_Comment [Auto mated = 8571598552) message] The s ystem which generated this result transmitted reference range : 10*3/?L. The reference range was not used to interpret this result as normal/abnormal . GRAN MAT (NEUT) % 74.6 % (test code = 770-8) IMM GRAN % (test code 0.60 % = 2808391099) LYMPH % (test code = 15.2 % 736-9) MONO % (test code = 8.3 % 5905-5) EOS % (test code = 0.8 % 713-8) BASO % (test code = 0.5 % 706-2) GRAN MAT x10^3(ANC) 4.96 10*3/uL 1.99-6.95 (test code = 5514594027) IMM GRAN x10^3 (test 0.04 10*3/uL 0.00-0.06 code = 5089633590) LYMPH x10^3 (test code 1.01 10*3/uL 1.09-3.23 L = 731-0) MONO x10^3 (test code 0.55 10*3/uL 0.36-1.02 = 742-7) EOS x10^3 (test code = 0.05 10*3/uL 0.06-0.53 L 711-2) BASO x10^3 (test code 0.03 10*3/uL 0.01-0.09 = 704-7) Lab Interpretation Abnormal (test code = 79279-5) [facility] GLUCOSE (AUTOMATED)2021-01-26 01:14:28 Test Item Value Reference Range Interpretation Comments POCT GLU (test code = 2563238783) 131 mg/dL 70-110 H Lab Interpretation (test code = Abnormal 85546-0) [facility] GLUCOSE (AUTOMATED)2021-01-25 21:53:13 Test Item Value Reference Range Interpretation Comments POCT GLU (test code = 2758120026) 141 mg/dL 70-110 H Lab Interpretation (test code = Abnormal 32932-1) [facility] GLUCOSE (AUTOMATED)2021-01-25 14:01:24 Test Item Value Reference Range Interpretation Comments POCT GLU (test code = 5832083850) 104 mg/dL 70-110 Lab Interpretation (test code = Normal 72713-6) [facility] 1 [id number] 13:48:12[facility], Radiant Results Inft User - 01/25/2021 [...] and basilar edema noted previously have resolved. [facility] Views - Upright ( PA, LAT) on POD # 3 2021-01-25 13:47:02 Interval removal of right central venous catheter. Small left pleural effusion. Preliminary Report Dictated by Resident: Adam Armstrong MD., have reviewed this study and agree withthe above report.[facility], Radiant Results Inft User - 01/25/2021 8:48 [...] reviewed this study and agree withthe above report.[facility] (NA, K, CL, CO2, GLUCOSE, BUN, CREATININE, CA)2021-01-25 09:00:49 Test Item Value Reference Range Interpretation Comments NA (test code = 138 mmol/L 135-145 2548937340) K (test code = 4.1 mmol/L 3.5-5.0 5257109096) CL (test code = 105 mmol/L 98-108 5648954358) CO2 TOTAL (test code = 31 mmol/L 23-31 7365286359) AGAP (test code = 2 2-16 8443832960) BUN (test code = 17 mg/dL 7-23 4607225657) GLUCOSE (test code = 92 mg/dL 70-110 2526950540) CREATININE (test code = 0.47 mg/dL 0.60-1.25 L 6051879322) CALCIUM (test code = 8.0 mg/dL 8.6-10.6 L 9169004250) eGFR (test code = 171.0 mL/min/1.73m2 1847223126) CARLIE (test code = CARLIE) Association of [...] tests). Lab Interpretation Abnormal (test code = 09576-9) [facility]2021-05-03 09:00:49 Test Item Value Reference Range Interpretation Comments MAGNESIUM (test code = 6145368033) 2.2 mg/dL 1.7-2.4 Lab Interpretation (test code = Normal 30458-5) [facility] GLUCOSE (AUTOMATED)2021-01-24 17:43:33 Test Item Value Reference Range Interpretation Comments POCT GLU (test code = 119 mg/dL 70-110 H Notifi ed Provider 9792037977) Lab Interpretation (test Abnormal code = 93409-3) [facility]2021-[facility]-02 17:00:33 Test Item Value Reference Range Interpretation Comments DIGOXIN (test code = 2.2 ng/mL 0.8-1.6 H 7017944247) CARLIE (test code = CARLIE) Arrythmias: 1.5 - 2.0 ng/mLToxic Range: Greater than or equal to 2.4 ng/mL Lab Interpretation (test Abnormal code = 70713-1) [facility] GLUCOSE (AUTOMATED)2021-01-24 13:53:55 Test Item Value Reference Range Interpretation Comments POCT GLU (test code = 94 mg/dL 70-110 Notifi ed Provider 0981876909) Lab Interpretation (test Normal code = 43935-8) [facility] (NA, K, CL, CO2, GLUCOSE, BUN, CREATININE, CA) on POD # [id number] 10:55:15 Test Item Value Reference Range Interpretation Comments NA (test code = 139 mmol/L 135-145 5992979886) K (test code = 4.3 mmol/L 3.5-5.0 4181603962) CL (test code = 104 mmol/L 98-108 7978659080) CO2 TOTAL (test code = 32 mmol/L 23-31 H 6598995979) AGAP (test code = 3 2-16 3587560878) BUN (test code = 15 mg/dL 7-23 6489160151) GLUCOSE (test code = 96 mg/dL 70-110 1718751503) CREATININE (test code = 0.59 mg/dL 0.60-1.25 L 6274495900) CALCIUM (test code = 8.2 mg/dL 8.6-10.6 L 3443541044) eGFR (test code = 131.5 mL/min/1.73m2 5606491841) CARLIE (test code = CARLIE) Association of [...] tests). Lab Interpretation Abnormal (test code = 55632-3) [facility] with Differential on POD # [id number] 10:25:49 Test Item Value Reference Range Interpretation Comments WBC (test code = 6.96 See_Comment [Automated 6690-2) message] The sy stem [...] (test code = 54.5 fL 38.5-51.6 H 33786-0) RDW-CV (test code = 15.4 % 12.1-15.4 788-0) PLT (test code = 180 See_Comment [Automated 777-3) message] The sy stem which generated this result transmitted reference range : 150 - 328 10*3/ ?L. The reference r jaswinder was not used to interpret this result as normal/abnormal . MPV (test code = 10.2 fL 9.8-13.0 94051-0) NRBC/100 WBC (test 0.0 See_Comment [Automat ed code = 7690339514) message] The system which generated this result transmitted reference range : 0.0 - 10.0 /100 WBCs. The refer ence range was not u sed to interpret th is result as normal/abnormal . NRBC x10^3 (test code <0.01 See_Comment [Auto mated = 1304082253) message] The s ystem which generated this result transmitted reference range : 10*3/?L. The reference range was not used to interpret this result as normal/abnormal . GRAN MAT (NEUT) % 77.5 % (test code = 770-8) IMM GRAN % (test code 0.30 % = 5771051688) LYMPH % (test code = 11.1 % 736-9) MONO % (test code = 9.8 % 5905-5) EOS % (test code = 0.9 % 713-8) BASO % (test code = 0.4 % 706-2) GRAN MAT x10^3(ANC) 5.40 10*3/uL 1.99-6.95 (test code = 2792228462) IMM GRAN x10^3 (test <0.03 0.00-0.06 code = 5877365637) LYMPH x10^3 (test code 0.77 10*3/uL 1.09-3.23 L = 731-0) MONO x10^3 (test code 0.68 10*3/uL 0.36-1.02 = 742-7) EOS x10^3 (test code = 0.06 10*3/uL 0.06-0.53 711-2) BASO x10^3 (test code 0.03 10*3/uL 0.01-0.09 = 704-7) Lab Interpretation Abnormal (test code = 44955-1) [facility] GLUCOSE (AUTOMATED)2021-01-24 01:56:29 Test Item Value Reference Range Interpretation Comments POCT GLU (test code = 9068128593) 122 mg/dL 70-110 H Lab Interpretation (test code = Abnormal 82273-7) [facility] GLUCOSE (AUTOMATED)2021-01-23 23:34:50 Test Item Value Reference Range Interpretation Comments POCT GLU (test code = 114 mg/dL 70-110 H Notifi ed Provider [id number]) Lab Interpretation (test Abnormal code = 61574-8) [facility] GLUCOSE (AUTOMATED)2021-01-23 18:43:15 Test Item Value Reference Range Interpretation Comments POCT GLU (test code = 107 mg/dL 70-110 Notifi ed Provider [id number]) Lab Interpretation (test Normal code = 44559-0) [facility] METABOLIC PANEL (NA, K, CL, CO2, GLUCOSE, BUN, CREATININE, CA)2021-01-23 11:27:35 Test Item Value Reference Range Interpretation Comments NA (test code = 135 mmol/L 135-145 0862208866) K (test code = 4.4 mmol/L 3.5-5.0 1895402154) CL (test code = 103 mmol/L 98-108 3957073605) CO2 TOTAL (test code = 29 mmol/L 23-31 0371704134) AGAP (test code = 3 2-16 0677823250) BUN (test code = 14 mg/dL 7-23 6879088303) GLUCOSE (test code = 95 mg/dL 70-110 3964321000) CREATININE (test code = 0.53 mg/dL 0.60-1.25 L 9543213020) CALCIUM (test code = 8.0 mg/dL 8.6-10.6 L 0600195152) eGFR (test code = 148.8 mL/min/1.73m2 1261256220) CARLIE (test code = CARLIE) Association of [...] tests). Lab Interpretation Abnormal (test code = 60573-0) [facility]35 Test Item Value Reference Range Interpretation Comments MAGNESIUM (test code = 6982346011) 2.2 mg/dL 1.7-2.4 Lab Interpretation (test code = Normal 79438-1) [facility] 11:27:35 Test Item Value Reference Range Interpretation Comments PHOSPHORUS (test code = 7207863095) 1.8 mg/dL 2.5-5.0 L Lab Interpretation (test code = Abnormal 50470-5) [facility] WITHOUT [id number] 10:54:12 Test Item Value Reference Range Interpretation Comments WBC (test code = 6690-2) 6.16 See_Comment [A utomated message] The system [employer] generated this result transmit thuy reference range : 4.20 - 10.70 10*3/?L. The reference range was not used to interpret this result as normal/abnormal . RBC (test code = 789-8) 2.68 See_Comment L [Au tomated message] The system [employer] generated this result transmit thuy reference range [...] See_Comment L [Au tomated message] The system [employer] generated this result transmit thuy reference range : 150 - 328 10*3/?L. The reference range was not used to interpret this result as normal/abnormal . MPV (test code = 10.7 fL 9.8-13.0 63779-7) RDW-CV (test code = 15.9 % 12.1-15.4 H 788-0) RDW-SD (test code = 55.1 fL 38.5-51.6 H 70536-1) NRBC x10^3 (test code = <0.01 See_Comment [Au tomated message] 8949812428) The system [employer] generated this result transmit thuy reference range : 10*3/?L. The reference range was not used to interpret this result as normal/abnormal . NRBC/100 WBC (test code 0.0 See_Comment [Au tomated message] = 7813671587) The system [facility] generated this result transmit thuy reference range : 0.0 - 10.0 /100 WBC s. The reference r jaswinder was not used to interpret this result as normal/abnormal . IPF % (test code = 5669489872) Lab Interpretation (test Abnormal code = 96781-0) [facility] WITHOUT [id number] 02:02:35 Test Item Value Reference Range Interpretation Comments WBC (test code = 6690-2) 7.13 See_Comment [A utomated message] The system [employer] generated this result transmit thuy reference range : 4.20 - 10.70 10*3/?L. The reference range was not used to interpret this result as normal/abnormal . RBC (test code = 789-8) 2.80 See_Comment L [Au tomated message] The system [employer] generated this result transmit thuy reference range [...] 164 See_Comment [Au tomated message] The system [employer] generated this result transmit thuy reference range : 150 - 328 10*3/?L. The reference range was not used to interpret this result as normal/abnormal . MPV (test code = 9.9 fL 9.8-13.0 50944-7) RDW-CV (test code = 16.3 % 12.1-15.4 H 788-0) RDW-SD (test code = 55.2 fL 38.5-51.6 H 24704-1) NRBC x10^3 (test code = <0.01 See_Comment [Au tomated message] 5578753514) The system [employer] generated this result transmit thuy reference range : 10*3/?L. The reference range was not used to interpret this result as normal/abnormal . NRBC/100 WBC (test code 0.0 See_Comment [Au tomated message] = 8718918570) The system [employer] generated this result transmit thuy reference range : 0.0 - 10.0 /100 WBC s. The reference r jaswinder was not used to interpret this result as normal/abnormal . IPF % (test code = 6953872333) Lab Interpretation (test Abnormal code = 78192-0) [facility] HospitalPOTASSIUM [id number] 22:27:44 Test Item Value Reference Range Interpretation Comments K (test code = 1257502891) 3.6 mmol/L 3.5-5.0 Lab Interpretation (test code = Normal 22281-5) [facility] HospitalPrepare Packed RBC (in units), 1 Units 2021-01-22 17:04:53 Test Item Value Reference Range Interpretation Comments Cross Match Result Compatible (test code = 4409) ISBT Blood Type Code 6200 (test code = 168144) Unit Blood Type (test A Pos code = 4410) Unit Number (test [id number] code = 4411) Blood Expiration Date & Time (test code = 511002) Status Information Issued (test code = 4412) Product Red Blood Cells Identification (test code = 4413) Product Code (test [id number] Performed at [facility] code = 4414) Laboratory Services - [facility] Blood [address] [place] [id number] Free: [phone] A No. [id number] [facility] HospitalXR CHEST 1 [id number] 13:45:17[facility], Radiant Results Inft User - 01/22/2021 8:46 AM CDTEXAM: XR CHEST 1 VWHISTORY: s/p CABG COMPARISON: None.FINDINGS:The heart and great vessels are normal except for a tortuous and prominentarteriosclerotic aorta. Chest tubes are unchanged on both sides and amediastinal drain is present in the midline. The Traphill-Dena catheter wasremoved. The tip of the right IJ line is deep in the superior vena cava.Mild basilar pulmonary congestion is present in the lung bases and a smallpleural effusion blunts the left costophrenic angle. The lungs are clearotherwise. [facility] WITH [id number] 10:02:06 Test Item Value Reference Range Interpretation [...] (test code = 53.7 fL 38.5-51.6 H 45463-5) RDW-CV (test code = 15.5 % 12.1-15.4 H 788-0) PLT (test code = 155 See_Comment [Automated 777-3) message] The sy stem which generated this result transmitted reference range : 150 - 328 10*3/ ?L. The reference r jaswinder was not used to interpret this result as normal/abnormal . MPV (test code = 10.6 fL 9.8-13.0 04255-6) NRBC/100 WBC (test 0.0 See_Comment [Automat ed code = 0001509131) message] The system which generated this result transmitted reference range : 0.0 - 10.0 /100 WBCs. The refer ence range was not u sed to interpret th is result as normal/abnormal . NRBC x10^3 (test code <0.01 See_Comment [Auto mated = 4198298158) message] The s ystem which generated this result transmitted reference range : 10*3/?L. The reference range was not used to interpret this result as normal/abnormal . GRAN MAT (NEUT) % 77.0 % (test code = 770-8) IMM GRAN % (test code 0.30 % = 9445691221) LYMPH % (test code = 9.7 % 736-9) MONO % (test code = 12.9 % 5905-5) EOS % (test code = 0.0 % 713-8) BASO % (test code = 0.1 % 706-2) GRAN MAT x10^3(ANC) 5.62 10*3/uL 1.99-6.95 (test code = 3598172844) IMM GRAN x10^3 (test <0.03 0.00-0.06 code = 5929486688) LYMPH x10^3 (test code 0.71 10*3/uL 1.09-3.23 L = 731-0) MONO x10^3 (test code 0.94 10*3/uL 0.36-1.02 = 742-7) EOS x10^3 (test code = <0.03 0.06-0.53 L 711-2) BASO x10^3 (test code <0.03 0.01-0.09 = 704-7) Lab Interpretation Abnormal (test code = 24305-4) [facility] HospitalMAGNESIUM2021-04-30 09:51:30 Test Item Value Reference Range Interpretation Comments MAGNESIUM (test code = 9489716352) 2.4 mg/dL 1.7-2.4 Lab Interpretation (test code = Normal 06459-0) [facility] HospitalPHOSPHORUS2021-04-30 09:51:30 Test Item Value Reference Range Interpretation Comments PHOSPHORUS (test code = 0846669818) 1.9 mg/dL 2.5-5.0 L Lab Interpretation (test code = Abnormal 68344-8) [facility] HospitalBASI METABOLIC PANEL (NA, K, CL, CO2, GLUCOSE, BUN, CREATININE, CA)2021-01-22 09:51:29 Test Item Value Reference Range Interpretation Comments NA (test code = 135 mmol/L 135-145 7724187781) K (test code = 4.3 mmol/L 3.5-5.0 6980187113) CL (test code = 105 mmol/L 98-108 2034879838) CO2 TOTAL (test code = 28 mmol/L 23-31 6997965332) AGAP (test code = 2 2-16 9041473676) BUN (test code = 11 mg/dL 7-23 2938540997) GLUCOSE (test code = 105 mg/dL 70-110 9663310425) CREATININE (test code = 0.50 mg/dL 0.60-1.25 L 0423402699) CALCIUM (test code = 8.0 mg/dL 8.6-10.6 L 8278990630) eGFR (test code = 159.2 mL/min/1.73m2 8284307706) CARLIE (test code = CARLIE) Association of [...] tests). Lab Interpretation Abnormal (test code = 40244-4) [facility] HospitalMRSA / MSSA Screen by Amelia [id number] 17:21:29 Test Item Value Reference Range Interpretation Comments MSSA Screen by Amelia GARCIA (test code Negative Negative = 54745-5) MRSA/MSSA Positive? (test code = No No [id number]) Lab Interpretation (test code = Normal 63958-2) [facility] HospitalAbdomen XRay 1 [id number] 16:22:12 The gastric tube is not visualized in the abdomen as it is turns superiorlyin the upper thoracic esophagus. Multiple additional lines and tubes as outlined above. Preliminary Report Dictated by Resident: Delmer Bhakta MD., have reviewed this study and agree with the abovereport.[facility], Radiant Results Inft User - 01/21/2021 11:23 AM CDTEXAM: XR ABDOMEN 1 VWHISTORY: OGT placement COMPARISON: noneFINDINGS:The gastric tube is not visualized on the abdominal radiograph. Theconcurrent chest radiograph was reviewed for further evaluation of thegastric tube which is seen taking a 180 degree turn in the mid thoracicesophagus before extending superiorly beyond the hypnh-yo-fwdj.The Traphill-Dena catheter tip projects over the main pulmonary artery. Thecentral venous catheter tip projects over the superior cavoatrial junction.Bibasilar pleural drains identified with an additional drain projectingover the cardiac silhouette. The mediastinal drain extends superiorlybeyond the eojjw-dd-xrgc.The upper abdominal bowel gas pattern demonstrates a nonobstructivepattern. No acute osseous abnormalities. Levocurvature of the lumbar spine.Multilevel spondylotic changes.IMPRESSIONThe gastric tube is not visualized in the abdomen as it is turns superiorlyin the upper thoracic esophagus.Multiple additional lines and tubes as outlined above.Preliminary Report Dictated by Resident: Delmer Villegas MD., have reviewed this study and agree with the abovereport.[facility] 1 [id number] 13:32:40 [facility] User - 01/21/2021 8:33 AM CDTEXAM: XR CHEST 1 VWHISTORY: s/p open heart surgery COMPARISON: None.FINDINGS:The chest tubes on both sides, the mediastinal drain and the Traphill-Ganzcatheter are unchanged in position. The endotracheal and nasogastric tubeswere removed. The tip ofthe right IJ line is deep in the superior venacava. The heart and great vessels are normal. The hilar vascular congestionis present on both sides but does not extend peripherally, suggesting thepossibility of pulmonary arterial hypertension. The lungs are well expandedand clear.[facility] HospitalXR CHEST 1 [id number] 13:16:03[facility], Radiant Results Inft User - 01/21/2021 8:17 AM CDTEXAM: XR CHEST 1 VWHISTORY: ETT placement Advanced ETT 1 cm, please confirm placementCOMPARISON: None.FINDINGS:The tip of the endotracheal tube is at the level of the clavicles and thechest tubes on both sides and mediastinal drain are unchangedin position.The tip of the Traphill-Dena catheter is in the outflow tract of the rightventricle or just enters the main pulmonary artery, and the tip of theright IJ line is in the superior vena cava. The heart and great vessels arenormal except for prominence of the thoracic aorta the lungs are wellexpanded and clear except for minor basilar subsegmental atelectasis on theright.[facility] HospitalPhosphorus2021-04-29 11:09:28 Test Item Value Reference Range Interpretation Comments PHOSPHORUS (test code = 6884875386) 3.8 mg/dL 2.5-5.0 Lab Interpretation (test code = Normal 21370-5) [facility] HospitalBasic Metabolic Panel (NA, K, CL, CO2, GLUCOSE, BUN, CREATININE, CA)2021-01-21 11:09:27 Test Item Value Reference Range Interpretation Comments NA (test code = 136 mmol/L 135-145 2779007407) K (test code = 4.3 mmol/L 3.5-5.0 2313243209) CL (test code = 106 mmol/L 98-108 9031285690) CO2 TOTAL (test code = 24 mmol/L 23-31 3601456387) AGAP (test code = 6 2-16 6588324964) BUN (test code = 8 mg/dL 7-23 9736915247) GLUCOSE (test code = 147 mg/dL 70-110 H 5187733088) CREATININE (test code = 0.49 mg/dL 0.60-1.25 L 1439824233) CALCIUM (test code = 7.6 mg/dL 8.6-10.6 L 2156469927) eGFR (test code = 162.9 mL/min/1.73m2 2645767728) CARLIE (test code = CARLIE) Association of [...] tests). Lab Interpretation Abnormal (test code = 10909-4) [facility] HospitalMagnesium2021-04-29 11:09:27 Test Item Value Reference Range Interpretation Comments MAGNESIUM (test code = 0004378417) 1.9 mg/dL 1.7-2.4 Lab Interpretation (test code = Normal 68151-0) [facility] with [id number] 11:02:38 Test Item Value Reference Range Interpretation Comments WBC (test code = 7.48 See_Comment [Automated 3090-2) message] The sy stem which generated this result transmitted reference range : 4.20 - 10.70 10*3/?L. The reference range was not used to interpret this result as normal/abnormal . RBC (test code = 2.48 See_Comment L [Automated 115-8) message] The sy stem which generated this [...] (test code = 53.3 fL 38.5-51.6 H 80456-7) RDW-CV (test code = 15.9 % 12.1-15.4 H 788-0) PLT (test code = 187 See_Comment [Automated 777-3) message] The sy stem which generated this result transmitted reference range : 150 - 328 10*3/ ?L. The reference r jaswinder was not used to interpret this result as normal/abnormal . MPV (test code = 9.8 fL 9.8-13.0 75463-6) NRBC/100 WBC (test 0.0 See_Comment [Automat ed code = 2781539698) message] The system which generated this result transmitted reference range : 0.0 - 10.0 /100 WBCs. The refer ence range was not u sed to interpret th is result as normal/abnormal . NRBC x10^3 (test code <0.01 See_Comment [Auto mated = 1210971775) message] The s ystem which generated this result transmitted reference range : 10*3/?L. The reference range was not used to interpret this result as normal/abnormal . GRAN MAT (NEUT) % 86.1 % (test code = 770-8) IMM GRAN % (test code 0.10 % = 1308155332) LYMPH % (test code = 4.4 % 736-9) MONO % (test code = 9.4 % 5905-5) EOS % (test code = 0.0 % 713-8) BASO % (test code = 0.0 % 706-2) GRAN MAT x10^3(ANC) 6.44 10*3/uL 1.99-6.95 (test code = 6373543021) IMM GRAN x10^3 (test <0.03 0.00-0.06 code = 4079391907) LYMPH x10^3 (test code 0.33 10*3/uL 1.09-3.23 L = 731-0) MONO x10^3 (test code 0.70 10*3/uL 0.36-1.02 = 742-7) EOS x10^3 (test code = <0.03 0.06-0.53 L 711-2) BASO x10^3 (test code <0.03 0.01-0.09 = 704-7) BASO STIPPLING (test Present A code = 703-9) BANDS (test code = Increased A 3063311040) Lab Interpretation Abnormal (test code = 98720-1) [facility] HospitalProthrombin Time / [id number] 10:45:25 Test Item Value Reference Range Interpretation Comments PROTIME PATIENT (test 13.9 See_Comment H [Auto mated message] code = 5964-2) The system [employer] generated this result transmitted ref erence range: 10.1 - 1 2.6 Seconds. The reference range was not used to int erpret this result as normal/abnormal . INR (test code = 6301-6) 1.2 Nor mal INR <1.1; Warfarin Therap eutic range 2.0 to 3. 0 or 2.5 to 3.5, dep ending upon the indica tions. Lab Interpretation (test Abnormal code = 43856-6) [facility] HospitalABG+COOX+NA+K+GLU+CA2+ (While Intubated) 2021-01-21 10:16:45 Test Item Value Reference Range Interpretation Comments PH (test code = 2) 7.43 7.35-7.45 PCO2 (test code = 38 See_Comment [Automat ed message] 6548905841) The system [employer] generated this result transmit thuy reference range : 35 - 45 mmHg. The reference range was not used to interpret this result as normal/abnormal . PO2 (test code = 152 See_Comment H [Automated message] 3111730004) The system [employer] generated this result transmit thuy reference range : 80 - 100 mmHg. The reference range was not used to interpret this result as normal/abnormal . HCO3 (test code = 24 See_Comment [Automate d message] 5468612089) The system [employer] generated this result transmit thuy reference range : 22 - 26 mEq/L. The reference range was not used to interpret this result as normal/abnormal . BE (test code = -0.1 See_Comment [Automated message] 0039816962) The system [employer] generated this result transmit thuy reference range : -3.0 - 3.0 mEq/ L. The reference r jaswinder was not used to interpret this result as normal/abnormal . THB (test code = 8.4 g/dL 13.5-18.0 L 9343534591) %O2HB (test code = 97.8 % 94.0-99.0 1066222241) %COHB ART (test code = 1.0 % 0.0-1.5 7522357371) %METHB ART (test code = 0.2 % 0.4-1.5 L 8363782290) VOL%O2 ART (test code = 11.9 % 15.0-23.0 L 1703313133) NA (test code = 133 mmol/L 135-145 L 3441474059) K+ (test code = 4.3 mmol/L 3.5-5.0 2118329988) AC CA IONZ (test code = 4.40 mg/dL 4.50-5.30 L 9320466445) GLUCOSE (test code = 157 mg/dL 70-110 H 6948113609) Lab Interpretation Abnormal (test code = 17414-1) [facility] WITHOUT [id number] 03:17:28 Test Item Value Reference Range Interpretation Comments WBC (test code = 6690-2) 7.84 See_Comment [A utomated message] The system [employer] generated this result transmit thuy reference range : 4.20 - 10.70 10*3/?L. The reference range was not used to interpret this result as normal/abnormal . RBC (test code = 789-8) 2.51 See_Comment L [Au tomated message] The system [employer] generated this result transmit thuy reference range [...] 183 See_Comment [Au tomated message] The system [employer] generated this result transmit thuy reference range : 150 - 328 10*3/?L. The reference range was not used to interpret this result as normal/abnormal . MPV (test code = 9.6 fL 9.8-13.0 L 96671-8) RDW-CV (test code = 15.6 % 12.1-15.4 H 788-0) RDW-SD (test code = 53.7 fL 38.5-51.6 H 24383-1) NRBC x10^3 (test code = <0.01 See_Comment [Au tomated message] 0947303758) The system [employer] generated this result transmit tuhy reference range : 10*3/?L. The reference range was not used to interpret this result as normal/abnormal . NRBC/100 WBC (test code 0.0 See_Comment [Au tomated message] = 9737225003) The system [facility] generated this result transmit thuy reference range : 0.0 - 10.0 /100 WBC s. The reference r jaswinder was not used to interpret this result as normal/abnormal . IPF % (test code = 2768667100) Lab Interpretation (test Abnormal code = 73145-2) [facility] WITHOUT [id number] 01:41:33 Test Item Value Reference Range Interpretation Comments WBC (test code = 6690-2) 6.89 See_Comment [A utomated message] The system [facility] generated this result transmit thuy reference range : 4.20 - 10.70 10*3/?L. The reference range was not used to interpret this result as normal/abnormal . RBC (test code = 789-8) 2.44 See_Comment L [Au tomated message] The system [facility] generated this result transmit thuy reference [...] 174 See_Comment [Au tomated message] The system [facility] generated this result transmit thuy reference range : 150 - 328 10*3/?L. The reference range was not used to interpret this result as normal/abnormal . MPV (test code = 9.5 fL 9.8-13.0 L 81145-6) RDW-CV (test code = 15.5 % 12.1-15.4 H 788-0) RDW-SD (test code = 53.7 fL 38.5-51.6 H 83961-5) NRBC x10^3 (test code = <0.01 See_Comment [Au tomated message] 9554903839) The system [facility] generated this result transmit thuy reference range : 10*3/?L. The reference range was not used to interpret this result as normal/abnormal . NRBC/100 WBC (test code 0.0 See_Comment [Au tomated message] = 8976969583) The system [facility] generated this result transmit thuy reference range : 0.0 - 10.0 /100 WBC s. The reference r jaswinder was not used to interpret this result as normal/abnormal . IPF % (test code = 5480471208) Lab Interpretation (test Abnormal code = 91752-3) [facility] HospitalABG+COOX+NA+K+GLU+CA2+ (While Intubated) 2021-01-21 01:34:15 Test Item Value Reference Range Interpretation Comments PH (test code = 2) 7.39 7.35-7.45 PCO2 (test code = 39 See_Comment [Automat ed message] 5254554250) The system [facility] generated this result transmit thuy reference range : 35 - 45 mmHg. The reference range was not used to interpret this result as normal/abnormal . PO2 (test code = 158 See_Comment H [Automated message] 0400267788) The system [facility] generated this result transmit thuy reference range : 80 - 100 mmHg. The reference range was not used to interpret this result as normal/abnormal . HCO3 (test code = 23 See_Comment [Automate d message] 0514827792) The system [employer] generated this result transmit thuy reference range : 22 - 26 mEq/L. The reference range was not used to interpret this result as normal/abnormal . BE (test code = -2.2 See_Comment [Automated message] 2955560546) The system [employer] generated this result transmit thuy reference range : -3.0 - 3.0 mEq/ L. The reference r jaswinder was not used to interpret this result as normal/abnormal . THB (test code = 8.0 g/dL 13.5-18.0 LL 7038691959) %O2HB (test code = 98.1 % 94.0-99.0 8048116972) %COHB ART (test code = 0.6 % 0.0-1.5 4797864467) %METHB ART (test code = 0.2 % 0.4-1.5 L 4016695715) VOL%O2 ART (test code = 11.4 % 15.0-23.0 L 2838005695) NA (test code = 136 mmol/L 135-145 9231575168) K+ (test code = 3.9 mmol/L 3.5-5.0 1946878546) AC CA IONZ (test code = 4.20 mg/dL 4.50-5.30 L 5149036349) GLUCOSE (test code = 129 mg/dL 70-110 H 7845923490) Lab Interpretation Abnormal (test code = 12547-4) [facility] 1 View (on admission)2021-01-21 00:29:18 Impression: Endotracheal tube is in appropriate position. Possible orogastric tube or nasogastric tube is looped upon itselfoverlapping the upper and mid esophagus, the distal aspect overlaps theneck and the tip is off the film; repositioning is recommended. Right internal jugular vein Traphill-Dena catheter and sheath, the tip of thecatheter [...] film; repositioning is recommended.Right internal jugular vein Traphill-Dena catheter and sheath, the tip of thecatheter [...] film; repositioning is recommended.Right internal jugular vein Traphill-Dena catheter and sheath, the tip of thecatheter overlaps the main pulmonary artery. Bilateral and central chest tubes.No pneumothorax. Minimal left lung base subsegmental atelectasis.RL: 460End of report. [facility] with [id number] 00:09:19 Test Item Value Reference Range Interpretation Comments WBC (test code = 6.15 See_Comment [Automated 8577-2) message] The sy stem which generated this result transmitted reference range : 4.20 - 10.70 10*3/?L. The reference range was not used to interpret this result as normal/abnormal . RBC (test code = 2.58 See_Comment L [Automated 166-1) message] The sy stem which generated this [...] (test code = 51.8 fL 38.5-51.6 H 81473-6) RDW-CV (test code = 15.1 % 12.1-15.4 788-0) PLT (test code = 160 See_Comment [Automated 777-3) message] The sy stem which generated this result transmitted reference range : 150 - 328 10*3/ ?L. The reference r jaswinder was not used to interpret this result as normal/abnormal . MPV (test code = 9.8 fL 9.8-13.0 39207-6) NRBC/100 WBC (test 0.0 See_Comment [Automat ed code = 2392562106) message] The system which generated this result transmitted reference range : 0.0 - 10.0 /100 WBCs. The refer ence range was not u sed to interpret th is result as normal/abnormal . NRBC x10^3 (test code <0.01 See_Comment [Auto mated = 0854707476) message] The s ystem which generated this result transmitted reference range : 10*3/?L. The reference range was not used to interpret this result as normal/abnormal . GRAN MAT (NEUT) % 85.5 % (test code = 770-8) IMM GRAN % (test code 0.50 % = 5408518659) LYMPH % (test code = 7.8 % 736-9) MONO % (test code = 5.9 % 5905-5) EOS % (test code = 0.0 % 713-8) BASO % (test code = 0.3 % 706-2) GRAN MAT x10^3(ANC) 5.26 10*3/uL 1.99-6.95 (test code = 3671038566) IMM GRAN x10^3 (test 0.03 10*3/uL 0.00-0.06 code = 3920036002) LYMPH x10^3 (test code 0.48 10*3/uL 1.09-3.23 L = 731-0) MONO x10^3 (test code 0.36 10*3/uL 0.36-1.02 = 742-7) EOS x10^3 (test code = <0.03 0.06-0.53 L 711-2) BASO x10^3 (test code <0.03 0.01-0.09 = 704-7) Lab Interpretation Abnormal (test code = 71421-3) [facility]2021-04-28 23:41:31 Test Item Value Reference Range Interpretation Comments PHOSPHORUS (test code = 0774361509) 2.1 mg/dL 2.5-5.0 L Lab Interpretation (test code = Abnormal 03447-5) [facility] HospitalBasi Metabolic Panel (NA, K, CL, CO2, GLUCOSE, BUN, CREATININE, CA)2021-01-20 23:41:30 Test Item Value Reference Range Interpretation Comments NA (test code = 137 mmol/L 135-145 4194145868) K (test code = 3.9 mmol/L 3.5-5.0 8989858709) CL (test code = 108 mmol/L 98-108 5422679868) CO2 TOTAL (test code = 19 mmol/L 23-31 L 4959063593) AGAP (test code = 10 2-16 8105337535) BUN (test code = 7 mg/dL 7-23 5712328807) GLUCOSE (test code = 123 mg/dL 70-110 H 7955398151) CREATININE (test code = 0.43 mg/dL 0.60-1.25 L 9679418957) CALCIUM (test code = 7.2 mg/dL 8.6-10.6 L 4487785440) eGFR (test code = 189.5 mL/min/1.73m2 9698206090) CARLIE (test code = CARLIE) Association of [...] tests). Lab Interpretation Abnormal (test code = 62101-8) [facility] HospitalMagnesium2021-04-28 23:41:30 Test Item Value Reference Range Interpretation Comments MAGNESIUM (test code = 5418757614) 2.3 mg/dL 1.7-2.4 Lab Interpretation (test code = Normal 07172-8) [facility] WITH [id number] 22:53:41 Test Item Value Reference Range Interpretation Comments WBC (test code = 6.84 See_Comment [Automated 6690-2) message] The sy stem which generated this result transmitted reference range : 4.20 - 10.70 10*3/?L. The reference range was not used to interpret this result as normal/abnormal . RBC (test code = 3.10 See_Comment L [Automated 029-8) message] The sy stem which generated this [...] RDW-SD (test code = 50.9 fL 38.5-51.6 96765-8) RDW-CV (test code = 14.8 % 12.1-15.4 788-0) PLT (test code = 68 See_Comment L [Automated 777-3) message] The sy stem which generated this result transmitted reference range : 150 - 328 10*3/ ?L. The reference r jaswinder was not used to interpret this result as normal/abnormal . MPV (test code = 9.7 fL 9.8-13.0 L 58710-8) IPF % (test code = 2.5 % 1.2-10.7 Platelet count [id number]) measured by fluorescence method. NRBC/100 WBC (test 0.0 See_Comment [Automat ed code = 7398433415) message] The system which generated this result transmitted reference range : 0.0 - 10.0 /100 WBCs. The refer ence range was not u sed to interpret th is result as normal/abnormal . NRBC x10^3 (test code <0.01 See_Comment [Auto mated = 8003856471) message] The s ystem which generated this result transmitted reference range : 10*3/?L. The reference range was not used to interpret this result as normal/abnormal . GRAN MAT (NEUT) % 81.7 % (test code = 770-8) IMM GRAN % (test code 0.70 % = 8211792636) LYMPH % (test code = 11.3 % 736-9) MONO % (test code = 5.7 % 5905-5) EOS % (test code = 0.3 % 713-8) BASO % (test code = 0.3 % 706-2) GRAN MAT x10^3(ANC) 5.59 10*3/uL 1.99-6.95 (test code = 0049824225) IMM GRAN x10^3 (test 0.05 10*3/uL 0.00-0.06 code = 6830619804) LYMPH x10^3 (test code 0.77 10*3/uL 1.09-3.23 L = 731-0) MONO x10^3 (test code 0.39 10*3/uL 0.36-1.02 = 742-7) EOS x10^3 (test code = <0.03 0.06-0.53 L 711-2) BASO x10^3 (test code <0.03 0.01-0.09 = 704-7) ALEJANDRO CELLS (test code 2+ See_Comment A [Auto mated = 9115-7) message] The sy stem which generated this result transmitted reference range : (none). The reference range was not used to interpret this result as normal/abnormal . Lab Interpretation Abnormal (test code = 94294-7) [facility]K+GLU+CA2+ (While Intubated) 2021-01-20 22:49:48 Test Item Value Reference Range Interpretation Comments PH (test code = 2) 7.48 7.35-7.45 H PCO2 (test code = 26 See_Comment L [Automat ed message] 3594675724) The system POPRAGEOUS generated this result transmit thuy reference range : 35 - 45 mmHg. The reference range was not used to interpret this result as normal/abnormal . PO2 (test code = 291 See_Comment H [Automated message] 6228889579) The system POPRAGEOUS generated this result transmit thuy reference range : 80 - 100 mmHg. The reference range was not used to interpret this result as normal/abnormal . HCO3 (test code = 20 See_Comment L [Automate d message] 0278446594) The system POPRAGEOUS generated this result transmit thuy reference range : 22 - 26 mEq/L. The reference range was not used to interpret this result as normal/abnormal . BE (test code = -3.9 See_Comment L [Automated message] 8308679287) The system POPRAGEOUS generated this result transmit thuy reference range : -3.0 - 3.0 mEq/ L. The reference r jaswinder was not used to interpret this result as normal/abnormal . THB (test code = 8.5 g/dL 13.5-18.0 L 8841483775) %O2HB (test code = 99.0 % 94.0-99.0 4961070960) %COHB ART (test code = 0.3 % 0.0-1.5 8373115793) %METHB ART (test code = 0.3 % 0.4-1.5 L 3864020052) VOL%O2 ART (test code = 12.6 % 15.0-23.0 L 9988838654) NA (test code = 138 mmol/L 135-145 8768491999) K+ (test code = 4.0 mmol/L 3.5-5.0 2659585563) AC CA IONZ (test code = 4.00 mg/dL 4.50-5.30 L 0154376273) GLUCOSE (test code = 121 mg/dL 70-110 H 5038522345) Lab Interpretation Abnormal (test code = 46399-6) [facility]IB[facility]IN[facility]EN2021-04-28 22:31:20 Test Item Value Reference Range Interpretation Comments Fibrinogen (test code = 9711169422) 140 mg/dL 167-453 L Lab Interpretation (test code = Abnormal 53311-6) [facility] HospitalPROTHROMBIN TIME / [id number] 22:31:15 Test Item Value Reference Range Interpretation Comments PROTIME PATIENT (test 20.8 See_Comment H [Auto mated message] code = 5964-2) The system Glazeon generated this result transmitted ref erence range: 10.1 - 1 2.6 Seconds. The reference range was not used to int erpret this result as normal/abnormal . INR (test code = 6301-6) 1.8 Nor mal INR <1.1; Warfarin Therap eutic range 2.0 to 3. 0 or 2.5 to 3.5, dep ending upon the indica tions. Lab Interpretation (test Abnormal code = 73066-3) [facility] HospitalACTIVATED PARTIAL THRMPLAS [id number] 22:30:08 Test Item Value Reference Range Interpretation Comments APTT Patient (test code = 28 See_Comment [ Automated message] 3173-2) The system POPRAGEOUS generated this result transmitted ref erence range: 26 - 36 Seconds. The re ference range was not u sed to interpret this result as normal/abnor mal. Lab Interpretation (test Normal code = 63659-3) [facility] HospitalPOCT ACT HIGH [id number] 22:22:24 Test Item Value Reference Range Interpretation Comments ACTHR (test code = 519 See_Comment H [Automat ed message] 0916338583) The system POPRAGEOUS generated this result transmitted ref erence range: 96 - 152 Seconds. The reference range was not used to int erpret this result as normal/abnormal . Lab Interpretation (test Abnormal code = 62075-6) [facility] HospitalPO[facility] HIGH [id number] 22:22:24 Test Item Value Reference Range Interpretation Comments ACTHR (test code = 106 See_Comment [Automat ed message] 6411633196) The system POPRAGEOUS generated this result transmitted ref erence range: 96 - 152 Seconds. The re ference range was not u sed to interpret this result as normal/abnor mal. Lab Interpretation (test Normal code = 68817-0) [facility] Plate[facility] (in units): 2 Units~ 2021-01-20 21:54:03 Test Item Value Reference Range Interpretation Comments Unit Blood Type (test O Pos code = 4410) ISBT Blood Type Code 5100 (test code = 475558) Unit Number (test code [id number] = 4411) Blood Expiration Date & Time (test code = 767315) Status Information Issued (test code = 4412) Product Identification Platelets (test code = 4413) Product Code (test [id number] Performed at [facility] code = 4414) Laboratory Services - [facility] Blood [address] [place] [address]Uuyi Free: [phone] A No. [id number] [facility] HospitalIST[facility] [id number] 21:19:29 Test Item Value Reference Range Interpretation Comments PH (test code = 2) 7.43 7.35-7.45 PCO2 (test code = 32 See_Comment L [Automat ed message] 8937715672) The system POPRAGEOUS generated this result transmit thuy reference range : 35 - 45 mmHg. The reference range was not used to interpret this result as normal/abnormal . PO2 (test code = 408 See_Comment H [Automated message] 0116415050) The system POPRAGEOUS generated this result transmit thuy reference range : 80 - 100 mmHg. The reference range was not used to interpret this result as normal/abnormal . BE (test code = -3.0 See_Comment [Automated message] 7550946302) The system POPRAGEOUS generated this result transmit thuy reference range : -3.0 - 3.0 mEq/ L. The reference r jaswinder was not used to interpret this result as normal/abnormal . HCO3 (test code = 21 See_Comment L [Automate d message] 6309065777) The system POPRAGEOUS generated this result transmit thuy reference range : 22 - 26 mEq/L. The reference range was not used to interpret this result as normal/abnormal . %O2HB (test code = 100.0 % 95.0-98.0 H 3304978444) NA (test code = 141 mmol/L 135-145 2339678407) K+ (test code = 3.8 mmol/L 3.5-5.0 7950652231) AC CA IONZ (test code = 5.90 mg/dL 4.50-5.30 H 8183836546) GLUCOSE (test code = 131 mg/dL 70-110 H 4393594616) AC Hematocrit (test 16 See_Comment LL [Automa thuy message] code = 4574492143) The syste m which generated this result transmit thuy reference range : 40 - 54 VOL %. The reference range was not used to interpret this result as normal/abnormal . THB (test code = 5.4 g/dL 13.5-18.0 LL 1346305210) AC TC02 (test code = 22 mmol/L See_Comment L [Autom ated message] 0539627427) The system POPRAGEOUS generated this result transmit thuy reference range : 23-27 mmol/L. T he reference range was not used to interpret this result as normal/abnormal . Lab Interpretation Abnormal (test code = 69905-5) [facility] ACUTE CARE [id number] 20:35:53 Test Item Value Reference Range Interpretation Comments PH (test code = 2) 7.44 7.35-7.45 PCO2 (test code = 33 See_Comment L [Automat ed message] 8569467825) The system Poliana generated this result transmit thuy reference range : 35 - 45 mmHg. The reference range was not used to interpret this result as normal/abnormal . PO2 (test code = 213 See_Comment H [Automated message] 9705848874) The system POPRAGEOUS generated this result transmit thuy reference range : 80 - 100 mmHg. The reference range was not used to interpret this result as normal/abnormal . BE (test code = -2.0 See_Comment [Automated message] 0484552202) The system POPRAGEOUS generated this result transmit thuy reference range : -3.0 - 3.0 mEq/ L. The reference r jaswinder was not used to interpret this result as normal/abnormal . HCO3 (test code = 22 See_Comment [Automate d message] 1940962683) The system POPRAGEOUS generated this result transmit thuy reference range : 22 - 26 mEq/L. The reference range was not used to interpret this result as normal/abnormal . %O2HB (test code = 100.0 % 95.0-98.0 H 6782154897) NA (test code = 138 mmol/L 135-145 6151294626) K+ (test code = 4.6 mmol/L 3.5-5.0 0074130362) AC CA IONZ (test code = 3.40 mg/dL 4.50-5.30 L 8612500741) GLUCOSE (test code = 170 mg/dL 70-110 H 9750376321) AC Hematocrit (test 20 See_Comment LL [Automa thuy message] code = 0777379038) The syste m which generated this result transmit thuy reference range : 40 - 54 VOL %. The reference range was not used to interpret this result as normal/abnormal . THB (test code = 6.8 g/dL 13.5-18.0 LL 9579760338) AC TC02 (test code = 23 mmol/L See_Comment [Autom ated message] 2359285626) The system POPRAGEOUS generated this result transmit thuy reference range : 23-27 mmol/L. T he reference range was not used to interpret this result as normal/abnormal . Lab Interpretation Abnormal (test code = 58229-1) [facility] ACUTE CARE [id number] 19:40:19 Test Item Value Reference Range Interpretation Comments PH (test code = 2) 7.45 7.35-7.45 PCO2 (test code = 35 See_Comment [Automat ed message] 6290025158) The system POPRAGEOUS generated this result transmit thuy reference range : 35 - 45 mmHg. The reference range was not used to interpret this result as normal/abnormal . PO2 (test code = 218 See_Comment H [Automated message] 2693164600) The system POPRAGEOUS generated this result transmit thuy reference range : 80 - 100 mmHg. The reference range was not used to interpret this result as normal/abnormal . BE (test code = 0.0 See_Comment [Automated message] 2834207228) The system POPRAGEOUS generated this result transmit thuy reference range : -3.0 - 3.0 mEq/ L. The reference r jaswinder was not used to interpret this result as normal/abnormal . HCO3 (test code = 24 See_Comment [Automate d message] 6922993679) The system POPRAGEOUS generated this result transmit thuy reference range : 22 - 26 mEq/L. The reference range was not used to interpret this result as normal/abnormal . %O2HB (test code = 100.0 % 95.0-98.0 H 0316708596) NA (test code = 139 mmol/L 135-145 4328307011) K+ (test code = 4.3 mmol/L 3.5-5.0 7892197537) AC CA IONZ (test code = 3.50 mg/dL 4.50-5.30 L 1110971779) GLUCOSE (test code = 128 mg/dL 70-110 H 3815539162) AC Hematocrit (test 19 See_Comment LL [Automa thuy message] code = 8902139650) The syste m which generated this result transmit thuy reference range : 40 - 54 VOL %. The reference range was not used to interpret this result as normal/abnormal . THB (test code = 6.5 g/dL 13.5-18.0 LL 9871053717) AC TC02 (test code = 25 mmol/L See_Comment [Autom ated message] 0964633023) The system POPRAGEOUS generated this result transmit thuy reference range : 23-27 mmol/L. T he reference range was not used to interpret this result as normal/abnormal . Lab Interpretation Abnormal (test code = 68081-2) [facility] ACUTE CARE [id number] 19:16:31 Test Item Value Reference Range Interpretation Comments PH (test code = 2) 7.32 7.35-7.45 L PCO2 (test code = 49 See_Comment H [Automat ed message] 2547979732) The system POPRAGEOUS generated this result transmit thuy reference range : 35 - 45 mmHg. The reference range was not used to interpret this result as normal/abnormal . PO2 (test code = 320 See_Comment H [Automated message] 6290410350) The system POPRAGEOUS generated this result transmit thuy reference range : 80 - 100 mmHg. The reference range was not used to interpret this result as normal/abnormal . BE (test code = -1.0 See_Comment [Automated message] 3848322959) The system POPRAGEOUS generated this result transmit thuy reference range : -3.0 - 3.0 mEq/ L. The reference r jaswinder was not used to interpret this result as normal/abnormal . HCO3 (test code = 25 See_Comment [Automate d message] 6080744124) The system POPRAGEOUS generated this result transmit thuy reference range : 22 - 26 mEq/L. The reference range was not used to interpret this result as normal/abnormal . %O2HB (test code = 100.0 % 95.0-98.0 H 4505941637) NA (test code = 139 mmol/L 135-145 2877526003) K+ (test code = 4.1 mmol/L 3.5-5.0 6792682370) AC CA IONZ (test code = 3.50 mg/dL 4.50-5.30 L 7582325055) GLUCOSE (test code = 77 mg/dL 70-110 5130396825) AC Hematocrit (test 18 See_Comment LL [Automa thuy message] code = 5821730875) The syste m which generated this result transmit thuy reference range : 40 - 54 VOL %. The reference range was not used to interpret this result as normal/abnormal . THB (test code = 6.1 g/dL 13.5-18.0 LL 0052387359) AC TC02 (test code = 27 mmol/L See_Comment [Autom ated message] 3296274778) The system POPRAGEOUS generated this result transmit thuy reference range : 23-27 mmol/L. T he reference range was not used to interpret this result as normal/abnormal . Lab Interpretation Abnormal (test code = 49935-3) [facility] Hospital[facility] Packed RBC (in units), 2 Units 2021-01-20 18:06:15 Test Item Value Reference Range Interpretation Comments Cross Match Result Compatible (test code = 4409) ISBT Blood Type Code 6200 (test code = 345217) Unit Blood Type (test A Pos code = 4410) Unit Number (test [id number] code = 4411) Blood Expiration Date & Time (test code = 602376) Status Information Issued (test code = 4412) Product Red Blood Cells Identification (test code = 4413) Product Code (test [id number] Performed at [facility] code = 4414) Laboratory Services - [facility] Blood [address] [place], [place] [address]vest[place]in [address]Rcqe Free: [phone] A No. [id number] [facility] ACUTE CARE [id number] 17:45:13 Test Item Value Reference Range Interpretation Comments PH (test code = 2) 7.40 7.35-7.45 PCO2 (test code = 44 See_Comment [Automat ed message] 1702898681) The system POPRAGEOUS generated this result transmit thuy reference range : 35 - 45 mmHg. The reference range was not used to interpret this result as normal/abnormal . PO2 (test code = 419 See_Comment H [Automated message] 0864672564) The system POPRAGEOUS generated this result transmit thuy reference range : 80 - 100 mmHg. The reference range was not used to interpret this result as normal/abnormal . BE (test code = 2.0 See_Comment [Automated message] 0826468874) The system POPRAGEOUS generated this result transmit thuy reference range : -3.0 - 3.0 mEq/ L. The reference r jaswinder was not used to interpret this result as normal/abnormal . HCO3 (test code = 27 See_Comment H [Automate d message] 8747404183) The system POPRAGEOUS generated this result transmit thuy reference range : 22 - 26 mEq/L. The reference range was not used to interpret this result as normal/abnormal . %O2HB (test code = 100.0 % 95.0-98.0 H 4276287340) NA (test code = 139 mmol/L 135-145 6304890086) K+ (test code = 4.0 mmol/L 3.5-5.0 4185251767) AC CA IONZ (test code = 4.70 mg/dL 4.50-5.30 5837205278) GLUCOSE (test code = 81 mg/dL 70-110 1893607269) AC Hematocrit (test 26 See_Comment L [Automa thuy message] code = 9268945600) The syste m which generated this result transmit thuy reference range : 40 - 54 VOL %. The reference range was not used to interpret this result as normal/abnormal . THB (test code = 8.8 g/dL 13.5-18.0 L 9046865030) AC TC02 (test code = 29 mmol/L See_Comment H [Autom ated message] 1386582279) The system whic h generated this result transmit thuy reference range : 23-27 mmol/L. T he reference range was not used to interpret this result as normal/abnormal . Lab Interpretation Abnormal (test code = 42481-0) [facility] Hospital[facility] Packed RBC (in units), 2 Units 2021-01-20 17:16:28 Test Item Value Reference Range Interpretation Comments Cross Match Result Compatible (test code = 4409) ISBT Blood Type Code 6200 (test code = 068481) Unit Blood Type (test A Pos code = 4410) Unit Number (test [id number] code = 4411) Blood Expiration Date & Time (test code = 183972) Status Information Issued (test code = 4412) Product Red Blood Cells Identification (test code = 4413) Product Code (test [id number] Performed at [facility] code = 4414) Laboratory Services - [facility] Blood [address] [address]Zify Free: [phone] A No. [id number] [facility] WITH [id number] 14:22:21 Test Item Value Reference Range Interpretation Comments WBC (test code = 5.38 See_Comment [Automated 9490-2) message] The sy stem which generated this result transmitted reference range : 4.20 - 10.70 10*3/?L. The reference range was not used to interpret this result as normal/abnormal . RBC (test code = 2.86 See_Comment L [Automated 197-8) message] The sy stem which generated this [...] RDW-SD (test code = 46.5 fL 38.5-51.6 88192-3) RDW-CV (test code = 12.8 % 12.1-15.4 788-0) PLT (test code = 245 See_Comment [Automated 777-3) message] The sy stem which generated this result transmitted reference range : 150 - 328 10*3/ ?L. The reference r jaswinder was not used to interpret this result as normal/abnormal . MPV (test code = 9.6 fL 9.8-13.0 L 27268-6) NRBC/100 WBC (test 0.0 See_Comment [Automat ed code = 0713185456) message] The system which generated this result transmitted reference range : 0.0 - 10.0 /100 WBCs. The refer ence range was not u sed to interpret th is result as normal/abnormal . NRBC x10^3 (test code <0.01 See_Comment [Auto mated = 9790139433) message] The s ystem which generated this result transmitted reference range : 10*3/?L. The reference range was not used to interpret this result as normal/abnormal . GRAN MAT (NEUT) % 63.7 % (test code = 770-8) IMM GRAN % (test code 0.40 % = 5722605055) LYMPH % (test code = 27.1 % 736-9) MONO % (test code = 7.2 % 5905-5) EOS % (test code = 0.9 % 713-8) BASO % (test code = 0.7 % 706-2) GRAN MAT x10^3(ANC) 3.42 10*3/uL 1.99-6.95 (test code = 0672734780) IMM GRAN x10^3 (test <0.03 0.00-0.06 code = 8803963900) LYMPH x10^3 (test code 1.46 10*3/uL 1.09-3.23 = 731-0) MONO x10^3 (test code 0.39 10*3/uL 0.36-1.02 = 742-7) EOS x10^3 (test code = 0.05 10*3/uL 0.06-0.53 L 711-2) BASO x10^3 (test code 0.04 10*3/uL 0.01-0.09 = 704-7) Lab Interpretation Abnormal (test code = 65582-2) [facility] HospitalABORH [id number] 13:57:35 Test Item Value Reference Range Interpretation Comments ABO & RH (test code A Positive Performe d at [facility] = 20) Laboratory Serv [facility] Blood Bank[address] [place] [address]Tanj Free: [phone] A No. [id number] [facility] HospitalUrinalysis2021-04-28 13:36:49 Test Item Value Reference Range Interpretation Comments APPEARANCE (test code = Hazy Clear A 1575441473) COLOR (test code = Yellow Yellow 6296533600) PH (test code = 5.0 4.8-8.0 7544866923) SP GRAVITY (test code = 1.008 1.003-1.030 9418093776) GLU U QUAL (test code = Normal Normal 3648659005) BLOOD (test code = Negative Negative Interfere nce from 0211720409) ascorbic acid m ay cause false neg ative results. KETONES (test code = 5 mg/dL Negative A 9216830847) PROTEIN (test code = Negative Negative 2887-8) UROBILIN (test code = Normal Normal 6368050286) BILIRUBIN (test code = Negative Negative 7263828659) NITRITE (test code = Negative Negative 1234052018) LEUK LAEKSEY (test code = 75/uL Negative A 7354868786) RBC/HPF (test code = 7 See_Comment H [Autom ated message] 1977963940) The system POPRAGEOUS generated this result transmitted ref erence range: 0 - 3 HP F. The reference range was not used to int erpret this result as normal/abnormal . WBC/HPF (test code = 5 See_Comment [Autom ated message] 1936710813) The system POPRAGEOUS generated this result transmitted ref erence range: 0 - 5 HP F. The reference range was not used to int erpret this result as normal/abnormal . BACTERIA (test code = Negative Negative 0280828943) SQ EPITH (test code = <1 See_Comment [Auto mated message] 7349862613) The system POPRAGEOUS generated this result transmitted ref erence range: <=2 HPF. The reference range was not used to int erpret this result as normal/abnormal . ASCORBIC ACID (test code 20 mg/dL = 5137461381) Lab Interpretation (test Abnormal code = 85244-7) [facility] (NA, K, CL, CO2, GLUCOSE, BUN, CREATININE, CA)2021-01-20 13:34:51 Test Item Value Reference Range Interpretation Comments NA (test code = 138 mmol/L 135-145 3196280386) K (test code = 4.2 mmol/L 3.5-5.0 8145635574) CL (test code = 104 mmol/L 98-108 5029426472) CO2 TOTAL (test code 26 mmol/L 23-31 = 6420567880) AGAP (test code = 8 2-16 0370573544) BUN (test code = 10 mg/dL 7-23 8025896175) GLUCOSE (test code = 82 mg/dL 70-110 0295595476) CREATININE (test code 0.66 mg/dL 0.60-1.25 = 8569336621) CALCIUM (test code = 9.0 mg/dL 8.6-10.6 5012846708) eGFR (test code = 115.6 mL/min/1.73m2 0266352471) CARLIE (test code = CARLIE) Association of [...] or urine or abnormalities in imaging tests). [facility] HospitalType and Screen - The Type and Screen expires at midnight on the 3rd day after it was drawn. A current Type and Screen is required when RBCs are requested. For all other blood products, a Type and Scre en performed during the current hospitalizati...2021-01-20 13:02:07 Test Item Value Reference Range Interpretation Comments ABO & RH (test code A POSITIVE Performe d at [facility] = 20) Laboratory Serv [facility] Blood Bank[address] [place] [address]Zroq Free: [phone] A No. [id number] IAT (test code = Negative Performed a t [facility] 1185) Laboratory Serv [facility] Blood Bank[address] [place] [address] s [address]Dwhc Free: [phone] A No. [id number] [facility] HospitalPROTHROMBIN TIME / [id number] 13:00:24 Test Item Value Reference Range Interpretation Comments PROTIME PATIENT (test 11.1 See_Comment [Auto mated message] code = 5964-2) The system Gl[employer] generated this result transmitted ref erence range: 10.1 - 1 2.6 Seconds. The re ference range was not u sed to interpret this result as normal/abnor mal. INR (test code = 6301-6) 1.0 Nor mal INR <1.1; Warfarin Therap eutic range 2.0 to 3. 0 or 2.5 to 3.5, dep ending upon the indica tions. Lab Interpretation (test Normal code = 47059-9) [facility]"
[2022-01-17 20:50] LABS: Urine Blood Negative (Negative); Urine Glucose Negative (Negative); Urine Protein Negative (Negative); Urine Specific Gravity 1.015 (1.005-1.030)
[2022-01-17 20:52] LABS: Absolute Lymphocytes (CBC) 1.5 K/uL (0.7-4.9); Hematocrit 43.1 % (39.6-49.0); Lymphocytes % 24.9 % (15.3-44.8); MPV 7.2 fL (7.6-11.3); RBC Red Blood Cell Count 4.49 M/uL (4.33-5.43)
[2022-01-17] MEDS ORDERED: ASPIRIN 81 MG CHEWABLE TABLET ONE (21:03)
[2022-01-17] MEDS ORDERED: FAMOTIDINE 20 MG/2 ML VIAL IV ONE (21:03)
--- NOTE | 2022-01-17 21:04 | RAD REPORT ---
EXAM DESCRIPTION: RAD - Chest Single View - 01/17/2022 8:50 pm CLINICAL HISTORY: COUGH COMPARISON: Chest Single View dated 12/18/2021; Chest Single View dated 10/01/2021; Chest Single View d ated 03/09/2021; Chest Single View dated 11/08/2018 FINDINGS: Lines: None. Lungs: No evidence of edema or pneumonia. Pleural: No significant pleural effusions or pneumothorax. Cardiac: The heart size is within normal limits. Bones: No acute fractures. Sternotomy. Other: Possible ascending thoracic aortic aneurysm. IMPRESSION: No acute cardiopulmonary disease. Question ascending aortic aneurysm or at least ectasia . Could confirm with either chest CT or correlate with prior echocardiography.
[2022-01-17 21:08] LABS: Protime INR 0.94
[2022-01-17 21:20] LABS: Bicarbonate 30 mmol/L (21-32); Glucose Level 94 mg/dL (74-106); Sodium Level 138 mmol/L (136-145)
[2022-01-17 21:21] LABS: ALT/SGPT 23 U/L (12-78); AST/SGOT 24 U/L (15-37); Alkaline Phosphatase 55 U/L (45-117); BUN Blood Urea Nitrogen 14 mg/dL (7-18); Bilirubin Direct 0.1 mg/dL (0-0.2); Bilirubin Total 0.4 mg/dL (0.2-1.0); Magnesium 2.2 mg/dL (1.8-2.4); NT PRO-BNP 992 pg/mL (<450); Potassium 4.5 mmol/L (3.5-5.1); Protein, Total 7.3 g/dL (6.4-8.2); Troponin High Sensitivity 8.9 pg/mL (<58.9)
--- NOTE | 2022-01-17 21:31 | ER ---
Nurse's Notes [facility] Name: Cecil Butterfield Age: 81 yrs Sex: Male : 1940 Arrival Date: 01/17/2022 Time: 20:05 Bed 24 Private MD: Diagnosis: Chest pain, unspecified;Essential (primary) hypertension;Thoracic aortic aneurysm, without rupture Presentation: 01/17 20:17 Chief complaint: Patient states: High blood pressure readings at home since noon, lp1 reports some chest discomfort. Coronavirus screen: At this time, the client does not indicate any symptoms associated with coronavirus-19. Ebola Screen: No symptoms or risks identified at this time. Risk Assessment: Do you want to hurt yourself or someone else? Patient reports no desire to harm self or others. Onset of symptoms was January 17, 2022 at 12:00. 20:17 Method Of Arrival: Ambulatory lp1 20:17 Acuity: JAMSHID 3 lp1 20:20 Initial Sepsis Screen: Does the patient meet any 2 criteria? No. Patient's initial lp1 sepsis screen is negative. Does the patient have a suspected source of infection? No. Patient's initial sepsis screen is negative. Historical: - Allergies: 20:19 No Known Allergies; lp1 - Home Meds: 20:19 aspirin 81 mg Oral TbEC 1 tab once daily [Active]; atenolol 25 mg Oral tab 1 tab once lp1 daily [Active]; metoprolol tartrate 25 mg Oral tab [Active]; - PMHx: 20:19 Anemia; blood transfusion from bleeding ucler; CAD; GI Bleed; Hypertension; Ulcers; lp1 - PSHx: 20:19 open heart surgery; lp1 - Immunization history:: Adult Immunizations up to date, Client reports receiving the 2nd dose of the Covid vaccine. - Social history:: Smoking status: Patient denies any tobacco usage or history of. - Family history:: not pertinent. Screenin:32 Abuse screen: Denies threats or abuse. Denies injuries from another. Nutritional as6 screening: No deficits noted. Tuberculosis screening: No symptoms or risk factors identified. Fall Risk None identified. Assessment: 21:32 General: Appears in no apparent distress. comfortable, slender, Behavior is calm, as6 cooperative. Pain: Denies pain. Neuro: Level of Consciousness is awake, alert, obeys commands, Oriented to person, place, time, situation. Cardiovascular: JVD is absent Patient's skin is warm and dry. Respiratory: Respiratory effort is even, unlabored, Respiratory pattern is regular, symmetrical. Vital Signs: 20:20 BP 120 / 83; Pulse 79; Resp 16; Temp 97.7(O); Pulse Ox 100% on R/A; Weight 54.43 kg lp1 (R); Height 5 ft. 2 in. (157.48 cm); Pain 0/10; 21:31 BP 131 / 88; Pulse 73; Resp 18 S; Pulse Ox 100% on R/A; as6 22:53 BP 143 / 92; Pulse 74; Resp 15 S; Pulse Ox 97% on R/A; as6 01/18 00:00 BP 134 / 80; Pulse 72; Resp 19 S; Pulse Ox 100% on R/A; as6 01/17 20:20 Body Mass Index 21.95 (54.43 kg, 157.48 cm) lp1 ED Course: 01/17 20:05 Patient arrived in ED. ag3 20:16 Arm band placed on right wrist. lp1 20:18 Kd Castillo MD is Attending Physician. clint 20:18 Triage completed. lp1 20:26 Guilherme Rogers, ELLE is Primary Nurse. as6 20:40 Inserted saline lock: 22 gauge in right antecubital area, using aseptic technique. as6 Blood collected. 20:51 Troponin HS Sent. as6 20:51 PT-INR Sent. as6 20:51 NT PRO-BNP Sent. as6 20:51 Magnesium Sent. as6 20:51 LFT's Sent. as6 20:51 CBC with Diff Sent. as6 20:51 Basic Metabolic Panel Sent. as6 20:52 XRAY Chest (1 view) In Process Unspecified. EDMS 21:30 Shar Jarquin is Hospitalizing Provider. [facility] 21:33 Placed in gown. Bed in low position. Call light in reach. Side rails up X2. Cardiac as6 monitor on. Pulse ox on. NIBP on. Warm blanket given. 22:27 CT Aorta for Dissection In Process Unspecified. EDMS 22:53 SARS-COV-2 RT PCR (Document "Date of Onset" if Symptomatic) Sent. as6 23:30 Scherer, Von, MD is Hospitalizing Provider. [facility] Administered Medications: 21:31 Drug: Aspirin Chewable Tablet 324 mg Route: PO; 01/18 00:47 Follow up: Response: No adverse reaction 01/17 21:31 Drug: Pepcid (famotidine) 20 mg Route: IVP; Site: right antecubital; 01/18 00:47 Follow up: Response: No adverse reaction 01/17 22:53 Drug: Lopressor (metoprolol TARTRATE)) 25 mg Route: PO; 01/18 00:47 Follow up: Response: No adverse reaction as Outcome: 01/17 21:30 Decision to Hospitalize by Provider. [facility] 01/18 13:59 Patient left the ED. aa5 Signatures: Dispatcher [employer] Kd Arboleda MD MD cha Calderon, Audri RN RN aa5 Chapis Ardon RN RN lp1 Nicci Beltran 3 Guilherme Rogers RN RN as6
--- NOTE | 2022-01-17 21:31 | EDPHYS ---
Physician Documentation [facility] Name: Cecil Butterfield Age: 81 yrs Sex: Male : 1940 Arrival Date: 01/17/2022 Time: 20:05 Bed 24 Private MD: ED Physician Kd Castillo HPI: 01/17 21:13 This 81 yrs old Male presents to ER via Ambulatory with complaints of High clint Blood Pressure. 21:13 The patient has elevated blood pressure and discovered this at home. Onset: The clint symptoms/episode began/occurred today. Modifying factors: The symptoms are aggravated by activity, The symptoms are alleviated by remaining still. Associated signs and symptoms: The patient has no apparent associated signs or symptoms. Severity of symptoms: At its worst the blood pressure was moderate, in the emergency department the blood pressure is improved, mildly. The patient has not experienced similar symptoms in the past. Historical: - Allergies: 20:19 No Known Allergies; lp1 - Home Meds: 20:19 aspirin 81 mg Oral TbEC 1 tab once daily [Active]; atenolol 25 mg Oral tab 1 tab once lp1 daily [Active]; metoprolol tartrate 25 mg Oral tab [Active]; - PMHx: 20:19 Anemia; blood transfusion from bleeding ucler; CAD; GI Bleed; Hypertension; Ulcers; lp1 - PSHx: 20:19 open heart surgery; lp1 - Immunization history:: Adult Immunizations up to date, Client reports receiving the 2nd dose of the Covid vaccine. - Social history:: Smoking status: Patient denies any tobacco usage or history of. - Family history:: not pertinent. ROS: 21:13 Constitutional: Negative for fever, chills, and weight loss, Eyes: Negative for injury, clint pain, redness, and discharge, ENT: Negative for injury, pain, and discharge, Neck: Negative for injury, pain, and swelling, Respiratory: Negative for shortness of breath, cough, wheezing, and pleuritic chest pain, Abdomen/GI: Negative for abdominal pain, nausea, vomiting, diarrhea, and constipation, Back: Negative for injury and pain, : Negative for injury, bleeding, discharge, and swelling, MS/Extremity: Negative for injury and deformity, Skin: Negative for injury, rash, and discoloration, Neuro: Negative for headache, weakness, numbness, tingling, and seizure, Psych: Negative for depression, anxiety, suicide ideation, homicidal ideation, and hallucinations, Allergy/Immunology: Negative for hives, rash, and allergies, Endocrine: Negative for neck swelling, polydipsia, polyuria, polyphagia, and marked weight changes, Hematologic/Lymphatic: Negative for swollen nodes, abnormal bleeding, and unusual bruising. 21:13 Cardiovascular: Positive for chest pain, of the chest. Exam: 21:13 Constitutional: This is a well developed, well nourished patient who is awake, alert, clint and in no acute distress. Head/Face: Normocephalic, atraumatic. Eyes: Pupils equal round and reactive to light, extra-ocular motions intact. Lids and lashes normal. Conjunctiva and sclera are non-icteric and not injected. Cornea within normal limits. Periorbital areas with no swelling, redness, or edema. ENT: Nares patent. No nasal discharge, no septal abnormalities noted. Tympanic membranes are normal and external auditory canals are clear. Oropharynx with no redness, swelling, or masses, exudates, or evidence of obstruction, uvula midline. Mucous membranes moist. Neck: Trachea midline, no thyromegaly or masses palpated, and no cervical lymphadenopathy. Supple, full range of motion without nuchal rigidity, or vertebral point tenderness. No Meningismus. Chest/axilla: Normal chest wall appearance and motion. Nontender with no deformity. No lesions are appreciated. Cardiovascular: Regular rate and rhythm with a normal S1 and S2. No gallops, murmurs, or rubs. Normal PMI, no JVD. No pulse deficits. Respiratory: Lungs have equal breath sounds bilaterally, clear to auscultation and percussion. No rales, rhonchi or wheezes noted. No increased work of breathing, no retractions or nasal flaring. Abdomen/GI: Soft, non-tender, with normal bowel sounds. No distension or tympany. No guarding or rebound. No evidence of tenderness throughout. Back: No spinal tenderness. No costovertebral tenderness. Full range of motion. Male : Normal genitalia with no discharge or lesions. Skin: Warm, dry with normal turgor. Normal color with no rashes, no lesions, and no evidence of cellulitis. MS/ Extremity: Pulses equal, no cyanosis. Neurovascular intact. Full, normal range of motion. Neuro: Awake and alert, GCS 15, oriented to person, place, time, and situation. Cranial nerves II-XII grossly intact. Motor strength 5/5 in all extremities. Sensory grossly intact. Cerebellar exam normal. Normal gait. Psych: Awake, alert, with orientation to person, place and time. Behavior, mood, and affect are within normal limits. 21:32 ECG was reviewed by the Attending Physician. [facility] Vital Signs: 20:20 BP 120 / 83; Pulse 79; Resp 16; Temp 97.7(O); Pulse Ox 100% on R/A; Weight 54.43 kg lp1 (R); Height 5 ft. 2 in. (157.48 cm); Pain 0/10; 21:31 BP 131 / 88; Pulse 73; Resp 18 S; Pulse Ox 100% on R/A; as6 22:53 BP 143 / 92; Pulse 74; Resp 15 S; Pulse Ox 97% on R/A; as6 01/18 00:00 BP 134 / 80; Pulse 72; Resp 19 S; Pulse Ox 100% on R/A; as6 01/17 20:20 Body Mass Index 21.95 (54.43 kg, 157.48 cm) lp1 MDM: 01/17 20:27 Patient medically screened. [facility] 21:21 Differential diagnosis: hypertensive crisis, Malignant HTN. Data reviewed: vital signs, [facility] nurses notes, lab test result(s), EKG, radiologic studies, plain films. Data interpreted: monitoring manager: rate is 79 beats/min, rhythm is regular, Pulse oximetry: on room air is 100 %. Test interpretation: by ED physician or midlevel provider: ECG, plain radiologic studies. Counseling: I had a detailed discussion with the patient and/or guardian regarding: the historical points, exam findings, and any diagnostic results supporting the discharge/admit diagnosis, lab results, radiology results, the need for further work-up and treatment in the hospital. 01/17 20:19 Order name: Basic Metabolic Panel; Complete Time: : [facility] 01/17 20:19 Order name: CBC with Diff; Complete Time: :23 [facility] 01/17 20:19 Order name: LFT's; Complete Time: : [facility] 01/17 20:19 Order name: Magnesium; Complete Time: : [facility] 01/17 20:19 Order name: NT PRO-BNP; Complete Time: 21:23 [facility] 01/17 20:19 Order name: PT-INR; Complete Time: 21:23 [facility] 01/17 20:19 Order name: Troponin HS; Complete Time: 21:23 [facility] 01/17 20:51 Order name: Urine Dipstick-Ancillary; Complete Time: 21: [facility] 01/17 22:14 Order name: SARS-COV-2 RT PCR (Document "Date of Onset" if Symptomatic) [facility] 01/18 05:17 Order name: Urinalysis [facility] 01/18 05:20 Order name: CBC with Automated Diff [facility] 01/18 05:25 Order name: Comprehensive Metabolic Panel [facility] 01/18 05:25 Order name: Troponin High Sensitivity [facility] 01/18 05:25 Order name: Lipid Profile [facility] 01/17 20:19 Order name: XRAY Chest (1 view); Complete Time: 21:23 [facility] 01/17 20:19 Order name: EKG; Complete Time: 20:20 [facility] 01/17 20:19 Order name: Cardiac monitoring; Complete Time: 21:06 [facility] 01/17 20:19 Order name: EKG - Nurse/Tech; Complete Time: 21:06 [facility] 01/17 20:19 Order name: IV Saline Lock; Complete Time: 20:50 [facility] 01/17 20:19 Order name: Labs collected and sent; Complete Time: 20:50 [facility] 01/17 20:19 Order name: O2 Per Protocol; Complete Time: 20:51 [facility] 01/17 20:19 Order name: O2 Sat Monitoring; Complete Time: 20:51 [facility] 01/17 20:19 Order name: Urine Dipstick-Ancillary (obtain specimen); Complete Time: 20:50 [facility] 01/17 21:29 Order name: CT Aorta for Dissection; Complete Time: 23:38 [facility] 01/18 11:42 Order name: Troponin High Sensitivity [facility] EC:32 Rate is 72 beats/min. Rhythm is regular. QRS [place] is Normal. [place] interval is normal. QRS clint interval is normal. QT interval is normal. No Q waves. T waves are Normal. No ST changes noted. Clinical impression: NSR w/ Non-specific ST/T Changes and No evidence of ischemia. Interpreted by me. Reviewed by me. Administered Medications: 21:31 Drug: Aspirin Chewable Tablet 324 mg Route: PO; 01/18 00:47 Follow up: Response: No adverse reaction 01/17 21:31 Drug: Pepcid (famotidine) 20 mg Route: IVP; Site: right antecubital; 01/18 00:47 Follow up: Response: No adverse reaction 01/17 22:53 Drug: Lopressor (metoprolol TARTRATE)) 25 mg Route: PO; 01/18 00:47 Follow up: Response: No adverse reaction as6 Disposition Summary: 01/17/22 21:30 Hospitalization Ordered Hospitalization Status: Observation clint Condition: Fair clint Problem: new clint Symptoms: have improved clint Bed/Room Type: Standard clint Provider: Von Scherer(01/17/22 23:30) clint Location: [facility] ER HOLD(01/18/22 11:28) aa5 Room Assignment: (01/18/22 11:28) aa5 Diagnosis - Chest pain, unspecified clint - Essential (primary) hypertension clint - Thoracic aortic aneurysm, without rupture clint Forms: - Medication Reconciliation Form clint - SBAR form clint Signatures: Dispatcher [employer] EDMS Amie Rivera RN RN mw Woody, Diana RN Kd Reed MD MD cha Calderon, Audri RN RN aa5 Chapis Ardon RN RN lp1 Guilherme Rogers RN RN as6 Corrections: (The following items were deleted from the chart) 01/17 22:05 21:30 Telemetry/MedSurg (observation) [facility] 22:05 21:30 [facility] 23:30 21:30 Shar Jarquin cha [facility] 01/18 10:50 01/17 22:05 [facility] ER HOLD [facility] 01/18 10:50 01/17 22:05 ERHOLD- [facility] 01/18 11:28 10:50 Telemetry/MedSurg (observation) aa 11:28 10:50 201 aa5
[2022-01-17] MEDS ORDERED: METOPROLOL TAR 25 MG TAB ONE (21:45)
--- NOTE | 2022-01-17 22:42 | RAD REPORT ---
EXAM DESCRIPTION: CTAngio Aorta For Dissection - 01/17/2022 10:26 pm CLINICAL HISTORY: aneurysm COMPARISON: No comparisons TECHNIQUE: CT of the chest, abdomen, and pelvis was performed. MIP reconstructions were performed. All CT scans are performed using dose optimization technique as appropriate and may include automated exposure control or mA/KV adjustment according to patient size. FINDINGS: Thorax: Chest Wall: No abnormal mass Lungs: No acute abnormality. Pleura: No effusions or pneumothorax. Elissa/Mediastinum: No lymphadenopathy. Aorta/Pulmonary Arteries: Mild atherosclerotic plaque involving the thoracic aorta. At the sinuses of Valsalva, the aortic root measures 4.1 cm. The ascending and descending thoracic aorta is nonaneurys mal. Heart: Normal size. Multi-vessel coronary artery disease. Abdomen/Pelvis: Liver: No acute abnormality or suspicious lesions. Biliary: No biliary ductal dilatation. Stomach: No significant focal abnormality. Duodenum: No significant focal abnormality. Pancreas: No significant abnormality. Spleen: No significant abnormality. Adrenal: No suspicious lesions. Kidney/ureter: No hydronephrosis. No renal calculi. Lower pole renal cyst. Retroperitoneum: No retroperitoneal adenopathy. Calcifications ventral to the IVC are unchanged. Thes e may be within a lymph node or vascular. Vascular: Abdominal aortic atherosclerosis with ectasia. No dissection. Bowel: No significant focal abnormality. Normal appendix. Peritoneum: No ascites or free air. Bladder: Grossly unremarkable. Reproductive: Moderate to severe prostatomegaly. Prostate measures 6 cm in transverse dimension. Bones: No acute fracture. Sternotomy. Multilevel degenerative changes are present in the spine. Other: n/a IMPRESSION: No aortic dissection or pulmonary embolus. Mild aneurysmal dilatation of the aortic cheryl t measuring 4.1 cm at the sinuses of Valsalva. The ascending thoracic aorta is normal in caliber. No acute findings identified. Other incidental findings which are unchanged as noted above.
--- NOTE | 2022-01-17 23:46 | P.HP ---
Certification for Inpatient Patient admitted to: Observation With expected LOS: <2 Midnights Patient will require the following post-hospital care: None Practitioner: I am a practitioner with admitting privileges, knowledge of patient current condition, hospital course, and medical plan of care. Services: Services provided to patient in accordance with Admission requirements found in Title 42 Section 412.3 of the Code of Federal Regulations Patient History Date of Service: 01/17/22 Reason for admission: Chest pain History of Present Illness: 81-year-old male with history of CAD status post CABG, PUD, hypertension presents the emergency department for chest pain, hypertension. Patient reports that around noon today he was experiencing some light discomfort in his chest, he is unable to describe the pain any better than not his pain was nonradiating did not have any other associated signs or symptoms appear to resolve spontaneously after a few hours. His blood pressure only mildly elevated upon arrival his initial EKG was without ST elevation his troponin was negative and his chest x-ray was unremarkable he also had a CT angiogram to rule out dissection/aneurysm no aortic dissection or pulmonary embolus mild aneurysmal dilatation of the aortic root measuring 4.1 cm at the sinuses of Valsalva the ascending thoracic aorta is normal in caliber no acute findings identified. ED provider wishes to admit under observation for ACS rule out. 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 moist/pink, EOMI, Sclerae nonicteric Neck: Supple, 2+ carotid pulse no bruit, No LAD, Without JVD or thyroid abnormal ity Respiratory: Clear to auscultation bilaterally, Normal air movement Cardiovascular: Regular rate/rhythm, Normal S1 S2 Gastrointestinal: Normal bowel sounds, No tenderness Musculoskeletal: No tenderness Integumentary: No rashes Neurological: Normal speech, Normal strength at 5/5 x4 extr, Normal tone, Normal affect - Studies Laboratory Data (last 24 hrs) 01/17/22 20:44: PT 10.3, INR 0.94 01/17/22 20:44: WBC 6.2, Hgb 14.7, Hct 43.1, Plt Count 287 01/17/22 20:44: Sodium 138, Potassium 4.5, BUN 14, Creatinine 0.71, Glucose 94, Magnesium 2.2, Total Bilirubin 0.4, AST 24, ALT 23, Alkaline Phosphatase 55 Assessment and Plan - Plan Assessment: Chest pain rule out ACS history CAD S/P three-vessel CABG Hypertension History PUD Plan: Chest pain rule out ACS history CAD S/P three-vessel CABG: Trend troponins, monitor on telemetry, continue aspirin, statin, beta-steffi therapy. Cardiology consult in place. As needed morphine, pain-free at this time. Appreciate further input from cardiology Hypertension: Obtain and continue home medications blood pressure normal at this time History PUD: Obtain and continue medications. DVT PPX: Lovenox Code status: Full Discharge Plan: Home Plan to discharge in: 24 Hours - Advance Directives Does patient have a Living Will: No Does patient have a Durable POA for Healthcare: No - Code Status/Comfort Care Code Status Assessed: Yes (Full code) Critical Care: No Time Spent Managing Pts Care (In Minutes): 55
[2022-01-18] MEDS ORDERED: ACETAMINOPHEN 500 MG TAB PO PRN (01:35)
[2022-01-18] MEDS ORDERED: MORPHINE 2 MG/ML SYR IV PRN (01:35)
[2022-01-18] MEDS ORDERED: ONDANSETRON 4 MG/2 ML VIAL IV PRN (01:35)
[2022-01-18 04:39] VITALS: BMI 21.9
[2022-01-18 05:16] LABS: Absolute Lymphocytes (CBC) 1.7 K/uL (0.7-4.9); Hematocrit 40.9 % (39.6-49.0); Lymphocytes % 29.2 % (15.3-44.8); MPV 7.6 fL (7.6-11.3); RBC Red Blood Cell Count 4.18 M/uL (4.33-5.43)
[2022-01-18 05:17] LABS: Urine Appearance Clear (Clear); Urine Bilirubin Negative (Negative); Urine Blood Negative (Negative); Urine Color Yellow (Yellow); Urine Glucose Negative (Negative); Urine Protein Negative (Negative); Urine Urobilinogen 0.2 mg/dL (0.2-1.0); Urine pH 6.5 (5.0-7.0)
[2022-01-18 05:22] LABS: Urine Microscopic Reflex NO UMIC
[2022-01-18 05:24] LABS: ALT/SGPT 19 U/L (12-78); AST/SGOT 15 U/L (15-37); Albumin 3.4 g/dL (3.4-5.0); Alkaline Phosphatase 46 U/L (45-117); BUN Blood Urea Nitrogen 12 mg/dL (7-18); Bicarbonate 29 mmol/L (21-32); Bilirubin Total 0.3 mg/dL (0.2-1.0); Glucose Level 77 mg/dL (74-106); HDL Cholesterol 46 mg/dL (40-60); LDL Cholesterol, Calculated 83 mg/dL (<130); Potassium 4.1 mmol/L (3.5-5.1); Protein, Total 6.4 g/dL (6.4-8.2); Sodium Level 141 mmol/L (136-145); Troponin High Sensitivity 10.9 pg/mL (<58.9)
[2022-01-18] MEDS ORDERED: METOPROLOL TAR 25 MG TAB PO SCH (06:00)
[2022-01-18] MEDS ORDERED: METOPROLOL TAR 25 MG TAB ONE (06:50)
--- NOTE | 2022-01-18 07:01 | P.PN ---
Date of Service: 01/18/22
[2022-01-18] MEDS ORDERED: ENOXAPARIN 40 MG/0.4 ML SQ ONE (08:30)
[2022-01-18] MEDS ORDERED: CLOPIDOGREL 75 MG TABLET ONE (08:30)
[2022-01-18] MEDS ORDERED: ASPIRIN EC 81 MG TAB PO ONE (08:30)
[2022-01-18] MEDS ORDERED: ASPIRIN EC 81 MG TAB PO SCH (09:00)
[2022-01-18] MEDS ORDERED: ENOXAPARIN 40 MG/0.4 ML SQ SCH (09:00)
[2022-01-18] MEDS ORDERED: CLOPIDOGREL 75 MG TABLET PO SCH (09:00)
--- NOTE | 2022-01-18 09:32 | EKG ---
Test Date: 2022-01-17 Test Time: 21:03:18 Retail Salesworker: PERRI MEASUREMENT RESULTS: Intervals: Rate: 76 NV: 158 QRSD: 84 QT: 398 QTc: 447 [place]: P: 72 NV: 158 QRS: 69 T: 64 INTERPRETIVE STATEMENTS: Sinus rhythm with fusion complexes Otherwise normal ECG Compared to ECG 12/18/2021 19:04:18 Fusion complex(es) now present Atrial premature complex(es) no longer present Ventricular premature complex(es) no longer present Electronically Signed On 01-18-22 09:31:44 CDT by Merritt Wheeler
--- NOTE | 2022-01-18 09:32 | EKG ---
Test Date: 2022-01-17 Test Time: 21:04:01 Pictures Editor: PERRI MEASUREMENT RESULTS: Intervals: Rate: 72 VA: 160 QRSD: 90 QT: 398 QTc: 435 [place]: P: 75 VA: 160 QRS: 70 T: 59 INTERPRETIVE STATEMENTS: Sinus rhythm with occasional premature ventricular complexes and fusion complexes Otherwise normal ECG Compared to ECG 01/17/2022 21:03:18 Ventricular premature complex(es) now present Electronically Signed On 01-18-22 09:31:43 CDT by Merritt Wheeler
[2022-01-18 12:55] VITALS: BP 112/79; TEMP 97.7
--- NOTE | 2022-01-18 15:42 | CON ---
Date of Consultation: 01/18/2022 The patient admitted on 01/17/[address] Scherer's service for chest pain. I saw the patient on 01/18. History Of Present Illness: Mr. Butterfield is an 81-year-old male, status post CABG a year ago in [facility]. He has an appointment coming up with Dr. Shirley. He normally sees Dr. Catracho Aranda here locally. Kanika de oliveira also has a history of hypertension and GI bleed in the past. He came in with hypertension, did not really have any chest pain. He complained of slight soreness over the left lateral chest, occasiona l PVC and palpitation. No nausea, vomiting, diaphoresis, PND, orthopnea, pedal edema, or syncope. D enied any fever or chills. LA has been ruled out. BNP is 992. Echocardiogram is pending. Past Medical History: As stated above. Allergies: NONE. Review of Systems: Negative. Social History: Negative. Family History: Negative. Medications: At home include aspirin, Lipitor, Tenormin, Pepcid, and metoprolol as well as Valium. Physical Examination: General: He is very pleasant, no acute distress. Vital Signs: Stable, afebrile, sinus rhythm. HEENT: Negative. Neck: Supple with no bruit. Chest: Clear to auscultation and percussion. Cardiac: Revealed a regular rhythm and rate with S4 gallops. No murmurs or rubs. Abdomen: Benign. Extremities: Revealed no clubbing, cyanosis, or edema. Skin: Dry and intact. Neurologic: He was nonfocal. Diagnostic Data: As stated earlier. EKG shows sinus rhythm with PVCs. Chest x-ray is negative. BN P is elevated at 992. Echocardiogram is pending. Impression And Plan: Atypical chest pain in a patient who has had coronary artery bypass graft a yea r ago. I seriously doubt we are dealing with acute coronary syndrome. His EKG is unremarkable. His troponin is negative. Echocardiogram is pending. I will continue his present regimen. He has hype rtension that is well controlled now, although it was high when he was at home. He could certainly i ncrease his metoprolol or Tenormin on as needed basis. He has had a history of ulcers. He should co ntinue Pepcid. He has issues with dyslipidemia, on Lipitor and anxiety, on Valium. Again, I think t he patient can go home after the echo. He will follow up with Dr. Shirley in the near future. The patie nt stated that he does not want to have a stress test here or in Dr. Shirley's office, but I will let him discuss that with Dr. Shirley when he goes to see him. VASILIY/LUZ Voice ID: [id number] Report ID: [id number]
[2022-01-18 16:18] VITALS: O2SAT 100
[2022-01-18] MEDS ORDERED: ATORVASTATIN 40 MG TAB PO SCH (21:00)
--- NOTE | 2022-01-18 21:01 | P.DS ---
Admission Date: 01/17/22 Discharge Date: 01/18/22 Disposition: DC HOME/HOME HEALTH CARE Reason for Admission: Chest pain Consultations: Cardiology -Dr. Wheeler Procedures: Problem List Chest pain h/o CAD S/P CABG x3 Hypertension History PUD Brief History of Present Illness: 81yo M, PMH: CAD s/p CABG, PUD, HTN Presented to ED due to chest pain and elevated blood pressure readings. Described as light discomfort in mid-chest, nonradiating, and without any other symptoms. No particular aggravating or alleviating factors. EKG and initial troponin negative. Chest x-ray and CT angiogram was only notable for mild aneurysmal dilatation of aortic root: 4.1cm at sinuses of Valsalva. Hospital Course: Chest discomfort was evaluated by EKG, troponin, CT scan. All were negative for acute process. Troponin remained stable and normal. Cardiology evaluated the patient. ACS was effectively ruled out, and he reported no longer having discomfort. Patient deemed stable for discharge home, to continue medications as previously prescribed. Patient plans to follow up with his [employer] [employer] soon. Blood pressure was noted to be low-normal at times. Recommend to continue to monitor at home. Keep log of readings and discuss with [facility] [employer]. May need to hold metoprolol if blood pressure is low. Vital Signs/Physical Exam: Temp Pulse Resp BP Pulse Ox 97.7 F 71 17 112/79 100 01/18/22 12:00 01/18/22 12:00 01/18/22 12:00 01/18/22 12:00 01/18/22 12:00 General: Alert, In no apparent distress, Oriented x3 HEENT: Sclerae nonicteric Respiratory: Clear to auscultation bilaterally, Normal air movement Cardiovascular: No edema, Regular rate/rhythm Gastrointestinal: Soft and benign, Non-distended, No tenderness Musculoskeletal: No erythema, No tenderness Integumentary: No rashes, No significant lesion Neurological: Normal speech, Normal affect Laboratory Data at Discharge: WBC 5.8 K/uL (4.3-10.9) 01/18/22 04:39 Hgb 13.7 g/dL (13.6-17.9) 01/18/22 04:39 Hct 40.9 % (39.6-49.0) 01/18/22 04:39 Plt Count 237 K/uL (152-406) 01/18/22 04:39 PT 10.3 SECONDS (9.5-12.5) 01/17/22 20:44 INR 0.94 01/17/22 20:44 Sodium 141 mmol/L (136-145) 01/18/22 04:39 Potassium 4.1 mmol/L (3.5-5.1) 01/18/22 04:39 BUN 12 mg/dL (7-18) 01/18/22 04:39 Creatinine 0.61 mg/dL (0.55-1.3) 01/18/22 04:39 Glucose 77 mg/dL (74-106) 01/18/22 04:39 Magnesium 2.2 mg/dL (1.8-2.4) 01/17/22 20:44 Total Bilirubin 0.3 mg/dL (0.2-1.0) 01/18/22 04:39 AST 15 U/L (15-37) 01/18/22 04:39 ALT 19 U/L (12-78) 01/18/22 04:39 Alkaline Phosphatase 46 U/L (45-117) 01/18/22 04:39 Triglycerides 94 mg/dL (<150) 01/18/22 04:39 Cholesterol 148 mg/dL (<200) 01/18/22 04:39 HDL Cholesterol 46 mg/dL (40-60) 01/18/22 04:39 Cholesterol/HDL Ratio 3.22 01/18/22 04:39 Home Medications: Aspirin 81 mg PO DAILY #30 tab.chew 12/19/21 Atorvastatin Calcium [Lipitor] 80 mg PO BEDTIME 12/19/21 Famotidine 40 mg PO BID 12/19/21 Zolpidem Tartrate 5 mg PO BEDTIME PRN PRN 12/19/21 Atenolol [Tenormin] 50 mg PO DAILY 01/18/22 Metoprolol Tartrate 25 mg PO BID 01/18/22 diazePAM [Diazepam] 2 mg PO BEDTIME PRN PRN 01/18/22 Diet: AHA Activity: Ad shahbaz Followup: Catracho Aranda MD [Primary Care Provider] - 1-2 Weeks Time spent managing pt's care (in minutes): 45
--- NOTE | 2022-01-19 13:14 | ECHO ---
HEIGHT: 5 ft 2 in WEIGHT: 120 lb 3.489 oz DATE OF STUDY: 01/18/[address]: Merritt Wheeler MD 2-DIMENSIONAL: YES M.MODE: YES DOPPLER: YES COLOR FLOW: YES TDS: NO PORTABLE: YES DEFINITY: NO BUBBLE STUDY: NO DIAGNOSIS: CHEST PAIN CARDIAC HISTORY: CATHERIZATION: NO SURGERY: NO PROSTHETIC VALVE: NO PACEMAKER: NO MEASUREMENTS (cm) DIASTOLIC (NORMALS) SYSTOLIC (NORMALS) IVSd 1.0 (0.6-1.2) LA Diam 2.8 (1.9-4.0) LVEF 54% LVIDd 4.0 (3.5-5.7) LVIDs 2.9 (2.0-3.5) %FS 27% LVPWd 1.0 (0.6-1.2) Ao Diam 2.5 (2.0-3.7) 2 DIMENSIONAL ASSESSMENT: RIGHT ATRIUM: NORMAL LEFT ATRIUM: NORMAL RIGHT VENTRICLE: NORMAL LEFT VENTRICLE: NORMAL TRICUSPID VALVE: NORMAL MITRAL VALVE: MITRAL ANNULAR CALCIFICATION PULMONIC VALVE: NORMAL AORTIC VALVE: NORMAL PERICARDIAL EFFUSION: NONE AORTIC ROOT: NORMAL LEFT VENTRICULAR WALL MOTION: NORMAL DOPPLER/COLOR FLOW: NORMAL COMMENTS: MITRAL ANNULAR CALCIFICATION. NORMAL LEFT VENTRICULAR SIZE AND FUNCTION. NO WALL MOTION ABNORMALITY. NO EFFUSION. TECHNOLOGIST: Micheal ORNELAS
== END 2022-01-18 13:10 | disposition home health service (06) ==
LOC: ER 20:04 → ERHOLD 23:48
PROVIDERS: ADMIT Hospitalist; ATTEND Hospitalist
DX: R07.89 Other chest pain (principal); I10 Essential (primary) hypertension; I25.10 Atherosclerotic heart disease of native coronary artery without angina pectoris; N40.0 Benign prostatic hyperplasia without lower urinary tract symptoms; D64.9 Anemia, unspecified; E78.5 Hyperlipidemia, unspecified; F41.9 Anxiety disorder, unspecified; I77.819 Aortic ectasia, unspecified site; Z95.1 Presence of aortocoronary bypass graft; Z87.11 Personal history of peptic ulcer disease; Z79.82 Long term (current) use of aspirin; Z79.899 Other long term (current) drug therapy; Z20.822 Contact with and (suspected) exposure to COVID-19
CPT/HCPCS: 93005 ×2; 93306; 85025 ×2; 80048; 36415; 83735; 85610; 80061; 80076; 81003 ×2; 84484 ×3; 80053; 83880; 71275; 74175; 71045; 96374; 99284; U0003; Q9967; J1650; J3490; G0378 ×2

== ENCOUNTER 2022-04-02 09:10 | Emergency (ER) | payer MEDICARE, BC ==
[2022-04-02] MEDS ORDERED: NA CHLORIDE 0.9% 500 ML ONE (09:57)
[2022-04-02 11:58] LABS: Absolute Lymphocytes (CBC) 1.5 K/uL (0.7-4.9); Hematocrit 42.5 % (39.6-49.0); Lymphocytes % 27.4 % (15.3-44.8); MCV 99.1 fL (80-100); MPV 7.4 fL (7.6-11.3); RBC Red Blood Cell Count 4.29 M/uL (4.33-5.43)
[2022-04-02 12:14] LABS: Potassium 3.9 mmol/L (3.5-5.1)
[2022-04-02 12:15] LABS: Magnesium 2.4 mg/dL (1.8-2.4); Troponin High Sensitivity 9.3 pg/mL (<58.9)
--- NOTE | 2022-04-02 12:25 | ER ---
Nurse's Notes [facility] Name: Cecil Butterfield Age: 81 yrs Sex: Male : 1940 Arrival Date: 04/02/2022 Time: 09:13 Bed 9 Private MD: Catracho Aranda T Diagnosis: Headache;Palpitations Presentation: 04/02 09:23 Chief complaint: Patient states: I have been feeling ill for the past few days, I was jg9 experiencing some heart palpitations that have been coming and going, I am weak and I have a slight headache. Coronavirus screen: Vaccine status:. Ebola Screen: Patient negative for fever greater than or equal to 101.5 degrees Fahrenheit, and additional compatible Ebola Virus Disease symptoms Patient denies exposure to infectious person. Patient denies travel to an Ebola-affected area in the 21 days before illness onset. Initial Sepsis Screen: Does the patient meet any 2 criteria? No. Patient's initial sepsis screen is negative. Does the patient have a suspected source of infection? No. Patient's initial sepsis screen is negative. Risk Assessment: Do you want to hurt yourself or someone else? Patient reports no desire to harm self or others. Onset of symptoms is unknown. 09:23 Method Of Arrival: Ambulatory 9 09:23 Acuity: JAMSHID 3 jg9 Triage Assessment: 09:26 Headache History: The patient has had previous headaches and this one is less severe jg9 than previous episodes. General: Appears in no apparent distress. Behavior is calm, cooperative. Pain: Complains of pain in head Pain currently is 5 out of 10 on a pain scale. Pain began 2-3 days ago. Also complains of no other associated symptoms. Neuro: Reports weakness generalized. Historical: - Allergies: 09:25 No Known Allergies; jg9 - Home Meds: 09:25 aspirin 81 mg Oral TbEC 1 tab once daily [Active]; atenolol 25 mg Oral tab 1 tab once jg9 daily [Active]; metoprolol tartrate 25 mg Oral tab [Active]; - PMHx: 09:25 Anemia; blood transfusion from bleeding ucler; CAD; GI Bleed; Hypertension; Ulcers; jg9 - PSHx: 09:25 open heart surgery; jg9 - Immunization history:: Adult Immunizations up to date. - Social history:: Smoking status: Patient/guardian denies using tobacco, the patient reports quitting approximately 45 years ago. - Family history:: not pertinent. - Hospitalizations: : No recent hospitalization is reported. Screenin:26 Abuse screen: Denies threats or abuse. Denies injuries from another. Nutritional jg9 screening: No deficits noted. Tuberculosis screening: No symptoms or risk factors identified. Fall Risk Fall in past 12 months (25 points). Assessment: 10:44 Reassessment: No changes from previously documented assessment. Patient and/or family jg9 updated on plan of care and expected duration. Pain level reassessed. Patient is alert, oriented x 3, equal unlabored respirations, skin warm/dry/pink. Pain: Denies pain. 11:14 Reassessment: laboratory coordinator called up to redraw patient due to him being a difficult stick jg9 and him giving a hard time to staff attempting. geotechnical intern unable to successfully collect blood patient advised "that's it, no more chances for anyone, I don't care what anyone says", provider notified. 11:38 Reassessment: patient has agreed to allow an additional attempt to collect blood after jg9 speaking with provider Niesha. Vital Signs: 09:23 BP 112 / 77; Pulse 98; Resp 18 S; Temp 98.4(T); Pulse Ox 95% on R/A; Weight 54.43 kg jg9 (R); Height 5 ft. 0 in. (152.40 cm) (R); Pain 5/10; 10:45 BP 104 / 67; Pulse 87; Resp 18 S; Pulse Ox 100% on R/A; jg9 11:46 BP 128 / 84; Pulse 70; Resp 17 S; Pulse Ox 99% on R/A; jg9 12:22 BP 127 / 73; Pulse 86; Resp 17 S; Pulse Ox 99% on R/A; jg9 09:23 Body Mass Index 23.44 (54.43 kg, 152.40 cm) jg9 Danis Coma Score: 12:23 Eye Response: spontaneous(4). Verbal Response: oriented(5). Motor Response: obeys rn commands(6). Total: 15. ED Course: 09:13 Patient arrived in ED. am2 09:13 Catracho Aranda MD is Private Physician. am2 09:15 Joaquin Scherer MD is Attending Physician. rn 09:16 Sherry Ariza RN is Primary Nurse. jg9 09:25 Triage completed. jg9 09:27 Patient has correct armband on for positive identification. Bed in low position. Call jg9 light in reach. Side rails up X 1. 09:27 Arm band placed on right wrist. jg9 10:10 Missed attempt(s): 20 gauge in right antecubital area. Bleeding controlled, band aid mb7 applied, catheter tip intact. 10:15 Inserted saline lock: 22 gauge in right forearm, using aseptic technique. Blood jg9 collected. 10:50 No apparent distress. reading a book. Awaiting lab results. jg9 12:22 No apparent distress. Resting quietly. Awaiting lab results. jg9 12:30 No provider procedures requiring assistance completed. jg9 12:31 IV discontinued. jg9 Administered Medications: 10:30 Drug: NS 0.9% 500 ml Route: IV; Rate: bolus; Site: right forearm; jg9 12:21 Follow up: IV Status: Completed infusion; IV Intake: 500ml jg9 Medication: 12:31 VIS not applicable for this client. jg9 Intake: 12:21 IV: 500ml; Total: 500ml. jg9 Outcome: 12:24 Discharge ordered by . rn 12:31 Discharged to home ambulatory. jg9 12:31 Condition: stable 12:31 Discharge instructions given to patient, Instructed on discharge instructions, follow up and referral plans. Demonstrated understanding of instructions, follow-up care. 12:31 Patient left the ED. jg9 Signatures: Joaquin Scherer MD MD rn Moreno, Amanda am2 Sarita Johnson mb7 Sherry Ariza RN RN jg9 Corrections: (The following items were deleted from the chart) 10:10 10:10 Inserted mb7 mb7
--- NOTE | 2022-04-02 12:25 | EDPHYS ---
Physician Documentation [facility] Name: Cecil Butterfield Age: 81 yrs Sex: Male : 1940 Arrival Date: 04/02/2022 Time: 09:13 Bed 9 Private MD: Catracho Aranda T ED Physician Joaquin Scherer HPI: 04/02 09:51 This 81 yrs old Male presents to ER via Ambulatory with complaints of General Weakness, rn Headache. 09:51 The patient complains of pain to the top of head and forehead. The patient describes rn the headache as aching. Onset: The symptoms/episode began/occurred this morning. Associated signs and symptoms: Pertinent positives: palpitations, Pertinent negatives: altered mental status, dizziness, fever, neck stiffness, paresthesias, rash, vision changes, vision loss, vomiting, weakness, vertigo. Severity of symptoms: At its worst the pain was mild, in the emergency department the pain has resolved. Headache History: Denies prior headaches. The symptoms are alleviated by nothing. the symptoms are aggravated by nothing. The patient has not experienced similar symptoms in the past. The patient has not recently seen a physician. Pt reports came in for palpitations and headache. Reports palpitations were brief, less than 1 minute, now resolved. Also felt slight headache, also now resolved. States took home COVID test was neg yesterday. No fever. NO chest pain/sob. No abd pain. No focal neuro complaints. . Historical: - Allergies: 09:25 No Known Allergies; jg9 - Home Meds: 09:25 aspirin 81 mg Oral TbEC 1 tab once daily [Active]; atenolol 25 mg Oral tab 1 tab once jg9 daily [Active]; metoprolol tartrate 25 mg Oral tab [Active]; - PMHx: 09:25 Anemia; blood transfusion from bleeding ucler; CAD; GI Bleed; Hypertension; Ulcers; jg9 - PSHx: 09:25 open heart surgery; jg9 - Immunization history:: Adult Immunizations up to date. - Social history:: Smoking status: Patient/guardian denies using tobacco, the patient reports quitting approximately 45 years ago. - Family history:: not pertinent. - Hospitalizations: : No recent hospitalization is reported. ROS: 09:51 Constitutional: Negative for fever, chills, and weight loss, Eyes: Negative for injury, rn pain, redness, and discharge, Neck: Negative for injury, pain, and swelling, Cardiovascular: Negative for chest pain, and edema, Respiratory: Negative for shortness of breath, cough, wheezing, and pleuritic chest pain, Abdomen/GI: Negative for abdominal pain, nausea, vomiting, diarrhea, and constipation, Back: Negative for injury and pain, : Negative for injury, bleeding, discharge, and swelling, MS/Extremity: Negative for injury and deformity, Skin: Negative for injury, rash, and discoloration, Neuro: Negative for weakness, numbness, tingling, and seizure. Exam: 09:51 Constitutional: This is a well developed, well nourished patient who is awake, alert, rn and in no acute distress. Head/Face: Normocephalic, atraumatic. Eyes: Periorbital areas with no swelling, redness, or edema. ENT: dry MM Neck: Trachea midline, no masses palpated, and no cervical lymphadenopathy. Supple, full range of motion without nuchal rigidity, or vertebral point tenderness. No Meningismus. Cardiovascular: Regular rate and rhythm. No pulse deficits. Respiratory: No increased work of breathing, no retractions or nasal flaring. Abdomen/GI: Soft, non-tender Skin: Warm, dry MS/ Extremity: Pulses equal, no cyanosis. Neurovascular intact. Full, normal range of motion. Equal circumference. Neuro: Awake and alert, GCS 15, oriented to person, place, time, and situation. Cranial nerves II-XII grossly intact. Motor strength 5/5 in all extremities. Sensory grossly intact. Cerebellar exam normal. Vital Signs: 09:23 BP 112 / 77; Pulse 98; Resp 18 S; Temp 98.4(T); Pulse Ox 95% on R/A; Weight 54.43 kg jg9 (R); Height 5 ft. 0 in. (152.40 cm) (R); Pain 5/10; 10:45 BP 104 / 67; Pulse 87; Resp 18 S; Pulse Ox 100% on R/A; jg9 11:46 BP 128 / 84; Pulse 70; Resp 17 S; Pulse Ox 99% on R/A; jg9 12:22 BP 127 / 73; Pulse 86; Resp 17 S; Pulse Ox 99% on R/A; jg9 09:23 Body Mass Index 23.44 (54.43 kg, 152.40 cm) jg9 Danis Coma Score: 12:23 Eye Response: spontaneous(4). Verbal Response: oriented(5). Motor Response: obeys rn commands(6). Total: 15. MDM: 09:15 Patient medically screened. rn 11:47 ED course: There was difficulty obtaining blood by RN and phlebotomy, finally obtained rn by charge nurse.. 12:23 Differential diagnosis: hypertensive headache, vasomotor headache, palpitations, rn anemia, CAD, arrhythmia. Data reviewed: vital signs, nurses notes, lab test result(s), EKG, and as a result, I will discharge patient. Counseling: I had a detailed discussion with the patient and/or guardian regarding: the historical points, exam findings, and any diagnostic results supporting the discharge/admit diagnosis, lab results, the need for outpatient follow up, to return to the emergency department if symptoms worsen or persist or if there are any questions or concerns that arise at home. Response to treatment: the patient's symptoms have resolved after treatment, the patient's condition has returned to base line, the patient is now symptom free, and as a result, I will discharge patient. Special discussion: I discussed with the patient/guardian in detail that at this point there is no indication for admission to the hospital. It is understood, however, that if the symptoms persist or worsen the patient needs to return immediately for re-evaluation. Based on the history and exam findings, there is no indication for further emergent testing or inpatient evaluation. I discussed with the patient/guardian the need to see the primary care provider for further evaluation of the symptoms. 12:24 ED course: Pt refused COVID testing even though I thought COVID was a possibility. . rn 04/02 09:31 Order name: CBC with Diff; Complete Time: 12:20 rn 04/02 09:31 Order name: Basic Metabolic Panel; Complete Time: 12:20 rn 04/02 09:31 Order name: Troponin High Sensitivity; Complete Time: 12:20 rn 04/02 09:31 Order name: BNP; Complete Time: 12:20 rn 04/02 09:31 Order name: Magnesium; Complete Time: 12:20 rn 04/02 09:31 Order name: IV Start; Complete Time: 10:44 rn 04/02 09:31 Order name: EKG; Complete Time: 09:32 rn 04/02 09:31 Order name: EKG - Nurse/Tech; Complete Time: 09:48 rn 04/02 09:31 Order name: Cardiac monitoring; Complete Time: 09:48 rn Administered Medications: 10:30 Drug: NS 0.9% 500 ml Route: IV; Rate: bolus; Site: right forearm; jg9 12:21 Follow up: IV Status: Completed infusion; IV Intake: 500ml jg9 Disposition Summary: 04/02/22 12:24 Discharge Ordered Location: Home rn Problem: new rn Symptoms: have improved rn Condition: Stable rn Diagnosis - Headache rn - Palpitations rn Followup: rn - With: Private Physician - When: As needed - Reason: Recheck today's complaints, Re-evaluation by your physician Discharge Instructions: - Discharge Summary Sheet rn - General Headache Without Cause rn - Palpitations rn Forms: - Medication Reconciliation Form rn - Thank You Letter rn - Antibiotic statistics intern - Prescription Opioid Use rn Signatures: Dispatcher [employer] Joaquin Farfan MD MD rn Gilmore, Jennifer, RN RN jg9
[2022-04-02 12:37] VITALS: TEMP 98.4
[2022-04-02 12:40] VITALS: O2SAT 99
[2022-04-02 12:43] VITALS: BP 127/73
--- NOTE | 2022-04-04 13:51 | EKG ---
Test Date: 2022-04-02 Test Time: 09:43:02 Knitter Machine: JANINE MEASUREMENT RESULTS: Intervals: Rate: 91 WA: 160 QRSD: 84 QT: 358 QTc: 440 [place]: P: 79 WA: 160 QRS: 79 T: 48 INTERPRETIVE STATEMENTS: Normal sinus rhythm Possible Left atrial enlargement Nonspecific T wave abnormality Abnormal ECG Compared to ECG 01/17/2022 21:04:01 T-wave abnormality now present Fusion complex(es) no longer present Ventricular premature complex(es) no longer present Electronically Signed On 04-04-22 13:47:35 CDT by Bertin Norton
== END 2022-04-02 12:31 | disposition home or self-care (01) ==
LOC: ER 09:10
DX: R51.9 Headache, unspecified (principal); R00.2 Palpitations; R53.1 Weakness; Z53.29 Procedure and treatment not carried out because of patient's decision for other reasons; I10 Essential (primary) hypertension; I25.10 Atherosclerotic heart disease of native coronary artery without angina pectoris; Z79.82 Long term (current) use of aspirin
CPT/HCPCS: 93005; 85025; 80048; 36415; 83735; 84484; 83880; J7040; 96360; 96361; 99284

== ENCOUNTER 2022-07-18 13:54 | Emergency (ER) | payer MEDICARE, BC ==
--- NOTE | 2022-07-18 14:46 | RAD REPORT ---
EXAM DESCRIPTION: CT - Head Brain Wo Cont - 07/18/2022 2:38 pm CLINICAL HISTORY: Alteration of awareness/confusion COMPARISON: July 09, 2022 TECHNIQUE: Computed axial tomography of the head was obtained. IV contrast was not requested. All CT scans are performed using dose optimization technique as appropriate and may include automated exposure control or mA/KV adjustment according to patient size. FINDINGS: An intracranial bleed is not seen . The ventricles are normal in caliber. No extra-axial fluid collection is noted. 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 Fluid within the sinuses/ mastoids is not seen. IMPRESSION: No acute intracranial abnormality is seen. If patient's symptoms persist MRI of the bra in would be recommended.
[2022-07-18 15:26] LABS: Urine Blood Negative (Negative); Urine Glucose Negative (Negative); Urine Protein Negative (Negative); Urine Specific Gravity 1.015 (1.005-1.030)
--- NOTE | 2022-07-18 15:32 | RAD REPORT ---
EXAM DESCRIPTION: Lisandra Single View07/18/2022 3:19 pm CLINICAL HISTORY: Shortness of breath COMPARISON: July 09, 2022 FINDINGS: Postsurgical changes involve the chest The lungs appear clear of acute infiltrate. The heart is normal size IMPRESSION: No acute abnormalities displayed
[2022-07-18 15:36] LABS: Absolute Lymphocytes (CBC) 0.8 K/uL (0.7-4.9); Hematocrit 46.2 % (39.6-49.0); Lymphocytes % 12.8 % (15.3-44.8); MCV 97.1 fL (80-100); MPV 7.6 fL (7.6-11.3); RBC Red Blood Cell Count 4.76 M/uL (4.33-5.43)
[2022-07-18 15:48] LABS: Urine RBC <5 /HPF (None Seen)
[2022-07-18 16:02] LABS: Potassium 3.8 mmol/L (3.5-5.1); Troponin High Sensitivity 10.8 pg/mL (<58.9)
--- NOTE | 2022-07-18 16:18 | ER ---
Nurse's Notes [facility] Name: Cecil Butterfield Age: 82 yrs Sex: Male : 1940 Arrival Date: 07/18/2022 Time: 13:55 Bed DIS3 Private MD: Diagnosis: Insomnia Presentation: 07/18 14:19 Chief complaint: Patient states: Unable to sleep for a few days and having a hard time ss remembering things. Coronavirus screen: Client denies travel out of the [place] in the last 14 days. Ebola Screen: Patient denies exposure to infectious person. Patient denies travel to an Ebola-affected area in the 21 days before illness onset. Initial Sepsis Screen: Does the patient meet any 2 criteria? No. Patient's initial sepsis screen is negative. Does the patient have a suspected source of infection? No. Patient's initial sepsis screen is negative. Risk Assessment: Do you want to hurt yourself or someone else? Patient reports no desire to harm self or others. Onset of symptoms is unknown. 14:19 Method Of Arrival: Ambulatory ss 14:19 Acuity: JAMSHID 3 ss Triage Assessment: 14:30 General: Appears in no apparent distress. Behavior is calm, cooperative, appropriate bp for age. Pain: Denies pain. EENT: No deficits noted. Neuro: Level of Consciousness is awake, obeys commands, confused, Oriented to person, place. Cardiovascular: No deficits noted. Respiratory: No deficits noted. GI: No signs and/or symptoms were reported involving the gastrointestinal system. : No signs and/or symptoms were reported regarding the genitourinary system. Derm: No deficits noted. Musculoskeletal: No deficits noted. Historical: - Allergies: 14:22 Unable to obtain; ss - PMHx: 14:22 Alzheimer's disease; Anemia; blood transfusion from bleeding ucler; CAD; GI Bleed; ss Hypertension; Ulcers; CVA; - PSHx: 14:22 open heart surgery; ss - Immunization history:: Client reports receiving the 2nd dose of the Covid vaccine. - Social history:: Smoking status: Patient denies any tobacco usage or history of. - Family history:: not pertinent. - Hospitalizations: : No recent hospitalization is reported. Screenin:30 Abuse screen: Denies threats or abuse. Denies injuries from another. Nutritional bp screening: No deficits noted. Tuberculosis screening: No symptoms or risk factors identified. Fall Risk None identified. Assessment: 14:30 General: SEE TRIAGE NOTE. bp 16:00 Reassessment: Patient appears in no apparent distress at this time. Patient and/or bp family updated on plan of care and expected duration. Pain level reassessed. 17:01 Reassessment: DC ON HOLD PENDING TRANSPORT, [facility] CONTACTED FOR TRANSPORT. bp Vital Signs: 14:19 BP 127 / 62; Pulse 98; Resp 16; Temp 97.1; Pulse Ox 100% on R/A; Height 5 ft. 0 in. ss (152.40 cm); Pain 0/10; 16:00 BP 125 / 79; Pulse 93; Resp 16; Pulse Ox 99% ; bp ED Course: 13:55 Patient arrived in ED. am2 14:05 Joaquin Scherer MD is Attending Physician. rn 14:20 Inserted saline lock: 22 gauge in right forearm, using aseptic technique. Blood bp collected. 14:22 Triage completed. ss 14:22 Arm band placed on right wrist. ss 14:30 Patient has correct armband on for positive identification. Bed in low position. Call bp light in reach. Side rails up X2. 14:38 Nolan Izaguirre, RN is Primary Nurse. bp 14:39 CT Head Brain wo Cont In Process Unspecified. EDMS 15:21 XRAY Chest (1 view) In Process Unspecified. EDMS 17:01 No provider procedures requiring assistance completed. IV discontinued, intact, bp bleeding controlled, No redness/swelling at site. Pressure dressing applied. Administered Medications: No medications were administered Medication: 17:01 VIS not applicable for this client. bp Outcome: 16:18 Discharge ordered by . rn 17:01 Discharged to snf. bp 17:01 Condition: stable 17:01 Discharge instructions given to patient, snf, Instructed on discharge instructions, follow up and referral plans. Demonstrated understanding of instructions, follow-up care. 18:15 Patient left the ED. ss Signatures: Dispatcher [employer] EDJoaquin Hough MD MD rn Smirch, Shelby, RN RN Katelyn Padilla am2 Nolan Izaguirre RN RN bp
--- NOTE | 2022-07-18 16:18 | EDPHYS ---
Physician Documentation [facility] Name: Cecil Butterfield Age: 82 yrs Sex: Male : 1940 Arrival Date: 07/18/2022 Time: 13:55 Bed DIS3 Private MD: ED Physician Joaquin Scehrer HPI: 07/18 16:14 This 82 yrs old Male presents to ER via Ambulatory with complaints of Unable to sleep. rn 16:14 Pt reports difficulty sleeping for last few days. No pain. no headache. + recent stroke rn s/p TNK. No trauma. No chest pain/sob/vomiting/diarrhea. . Onset: The symptoms/episode began/occurred 2 day(s) ago. Severity of symptoms: At their worst the symptoms were moderate in the emergency department the symptoms are unchanged. It is unknown whether or not the patient has had similar symptoms in the past. Dropped off by assisted living facility without report. . Historical: - Allergies: 14:22 Unable to obtain; ss - PMHx: 14:22 Alzheimer's disease; Anemia; blood transfusion from bleeding ucler; CAD; GI Bleed; ss Hypertension; Ulcers; CVA; - PSHx: 14:22 open heart surgery; ss - Immunization history:: Client reports receiving the 2nd dose of the Covid vaccine. - Social history:: Smoking status: Patient denies any tobacco usage or history of. - Family history:: not pertinent. - Hospitalizations: : No recent hospitalization is reported. ROS: 16:14 Constitutional: Negative for fever, chills, and weight loss, Eyes: Negative for injury, rn pain, redness, and discharge, Neck: Negative for injury, pain, and swelling, Cardiovascular: Negative for chest pain, palpitations, and edema, Respiratory: Negative for cough, wheezing, and pleuritic chest pain, Abdomen/GI: Negative for abdominal pain, nausea, vomiting, diarrhea, and constipation, Back: Negative for injury and pain, MS/Extremity: Negative for injury and deformity, Skin: Negative for injury, rash, and discoloration, Neuro: Negative for headache, weakness, numbness, tingling, and seizure. Exam: 15:45 ECG was reviewed by the Attending Physician. rn 16:14 Constitutional: This is a well developed, well nourished patient who is awake, alert, rn and in no acute distress. Head/Face: Normocephalic, atraumatic. Eyes: Periorbital areas with no swelling, redness, or edema. Cardiovascular: Regular rate and rhythm. No pulse deficits. Respiratory: No increased work of breathing, no retractions or nasal flaring. Abdomen/GI: Soft, non-tender Skin: Warm, dry with normal turgor. Normal color with no rashes, no lesions, and no evidence of cellulitis. MS/ Extremity: Pulses equal, no cyanosis. Neurovascular intact. Full, normal range of motion. Equal circumference. Neuro: Awake and alert, GCS 15, oriented to person, place, and situation. Cranial nerves II-XII grossly intact. Motor strength 5/5 in all extremities. Sensory grossly intact. Cerebellar exam normal. Normal gait. Vital Signs: 14:19 BP 127 / 62; Pulse 98; Resp 16; Temp 97.1; Pulse Ox 100% on R/A; Height 5 ft. 0 in. ss (152.40 cm); Pain 0/10; 16:00 BP 125 / 79; Pulse 93; Resp 16; Pulse Ox 99% ; bp MDM: 14:05 Patient medically screened. rn 16:14 Differential Diagnosis dementia, sundowning, post-stroke, insomnia. Data reviewed: rn vital signs, nurses notes, lab test result(s), EKG, radiologic studies, CT scan, and as a result, I will discharge patient. Counseling: I had a detailed discussion with the patient and/or guardian regarding: the historical points, exam findings, and any diagnostic results supporting the discharge/admit diagnosis, lab results, radiology results, the need for outpatient follow up, to return to the emergency department if symptoms worsen or persist or if there are any questions or concerns that arise at home. Special discussion: I discussed with the patient/guardian in detail that at this point there is no indication for admission to the hospital. It is understood, however, that if the symptoms persist or worsen the patient needs to return immediately for re-evaluation. Based on the history and exam findings, there is no indication for further emergent testing or inpatient evaluation. I discussed with the patient/guardian the need to see the neurologist for further evaluation of the symptoms. I discussed with the patient/guardian the need to see the primary care provider for further evaluation of the symptoms. ED course: No acute findings in ct head or blood. Will dc home with pcp f/u and neuro f/u. . 07/18 14:22 Order name: Urine Microscopic Only; Complete Time: 16:14 rn 07/18 14:28 Order name: CBC with Diff; Complete Time: 16:14 rn 07/18 14:28 Order name: Basic Metabolic Panel; Complete Time: 16:14 rn 07/18 14:28 Order name: BNP; Complete Time: 16:14 rn 07/18 14:28 Order name: Troponin High Sensitivity; Complete Time: 16:14 rn 07/18 15:26 Order name: Urine Dipstick-Ancillary; Complete Time: 15:36 EDMS 07/18 14:22 Order name: CT Head Brain wo Cont; Complete Time: 15:36 rn 07/18 14:22 Order name: Urine Dipstick-Ancillary (obtain specimen); Complete Time: 16:05 rn 07/18 14:28 Order name: XRAY Chest (1 view); Complete Time: 15:36 rn 07/18 14:28 Order name: IV Start; Complete Time: 16:05 rn 07/18 14:28 Order name: EKG; Complete Time: 14:29 rn 07/18 14:28 Order name: EKG - Nurse/Tech; Complete Time: 15:49 rn EC:45 Rate is 93 beats/min. Rhythm is regular. QRS [place] is Normal. SD interval is normal. QRS rn interval is normal. QT interval is normal. No Q waves. T waves are Normal. No ST changes noted. Clinical impression: Normal ECG. Interpreted by me. Reviewed by me. Administered Medications: No medications were administered Disposition Summary: 07/18/22 16:18 Discharge Ordered Location: Home rn Problem: new rn Symptoms: are unchanged rn Condition: Stable rn Diagnosis - Insomnia rn Followup: rn - With: Private Physician - When: As needed - Reason: Recheck today's complaints, Re-evaluation by your physician Discharge Instructions: - Discharge Summary Sheet rn - Insomnia rn Forms: - Medication Reconciliation Form rn - Thank You Letter rn - Antibiotic churn tender - Prescription Opioid Use rn Signatures: Dispatcher [employer] Joaquin Farfan MD MD rn Smirch, Shelby, ELLE RN ss
[2022-07-18 18:43] VITALS: BP 125/79; TEMP 97.1; O2SAT 99
--- NOTE | 2022-07-19 13:59 | EKG ---
Test Date: 2022-07-18 Test Time: 15:36:09 Spanish Instructor: BP MEASUREMENT RESULTS: Intervals: Rate: 93 WV: 164 QRSD: 88 QT: 362 QTc: 450 [place]: P: 70 WV: 164 QRS: 62 T: 52 INTERPRETIVE STATEMENTS: Normal sinus rhythm Possible Left atrial enlargement Borderline ECG Compared to ECG 07/09/2022 13:18:38 No significant changes Electronically Signed On 07-19-22 13:58:12 CDT by Bertin Norton
== END 2022-07-18 18:15 | disposition home or self-care (01) ==
LOC: ER 13:54
DX: G47.00 Insomnia, unspecified (principal); I10 Essential (primary) hypertension; G30.9 Alzheimer's disease, unspecified; F02.80 Dementia in other diseases classified elsewhere, unspecified severity, without behavioral disturbance, psychotic disturbance, mood disturbance, and anxiety
CPT/HCPCS: 36415; 70450; 71045; 80048; 81003; 81015; 83880; 84484; 85025; 93005; 99283

== ENCOUNTER 2022-10-28 07:39 | Observation (INO) | payer MEDICARE, BC ==
[2022-10-28 08:26] LABS: Absolute Lymphocytes (CBC) 2.2 K/uL (0.7-4.9); Hematocrit 48.1 % (39.6-49.0); MCV 99.9 fL (80-100); MPV 7.5 fL (7.6-11.3); RBC Red Blood Cell Count 4.81 M/uL (4.33-5.43)
[2022-10-28 08:38] LABS: Urine Blood Negative (Negative); Urine Glucose Negative (Negative); Urine Protein Negative (Negative)
[2022-10-28 08:47] LABS: Urine Bacteria None Seen /HPF (<20); Urine Mucus Slight /HPF (None Seen); Urine RBC <5 /HPF (None Seen)
[2022-10-28 09:02] LABS: Albumin 3.7 g/dL (3.4-5.0); Bilirubin Total 0.8 mg/dL (0.2-1.0); Potassium 4.4 mmol/L (3.5-5.1)
--- NOTE | 2022-10-28 10:04 | RAD REPORT ---
EXAM DESCRIPTION: CTAbdomen Pelvis W Contrast - 10/28/2022 9:22 am CLINICAL HISTORY: Abdominal pain. right inguinal pain, eval for lymphadenitis vs hernia COMPARISON: Abdomen Pelvis W Contrast dated 12/24/2020; CT ABD PELVIS W CONTRAST dated 03/17/2015 TECHNIQUE: Biphasic CT imaging of the abdomen and pelvis was performed with 100 ml non-ionic IV cont rast. All CT scans are performed using dose optimization technique as appropriate and may include automated exposure control or mA/KV adjustment according to patient size. FINDINGS: Emphysematous lung bases. The liver, spleen, pancreas, adrenal glands and kidneys are within normal limits. Benign cyst left ki dney. No bowel obstruction, free air, free fluid or abscess. Aorto iliac atherosclerosis. The appendix is n ormal. Prominent diverticulosis coli without diverticulitis. There is a twisting configuration noted in the right lower quadrant adjacent to the terminal ileum. No evidence of significant lymphadenopath y. Moderate lumbar degenerative changes. IMPRESSION: There is slight twisting configuration in the right lower quadrant of the fat and vessel s. No obstruction. This may represent a mild volvulus of the fat and small intestine in this region. Prominent diverticulosis coli of the sigmoid colon without diverticulitis.
--- NOTE | 2022-10-28 10:48 | EDPHYS ---
Physician Documentation [facility] Name: Cecil Butterfield Age: 82 yrs Sex: Male : 1940 Arrival Date: 10/28/2022 Time: 07:40 Bed 8 Private MD: ED Physician Joaquin Scherer HPI: 10/28 08:42 This 82 yrs old Male presents to ER via EMS with complaints of Abdominal Pain. rn 08:42 The patient presents with abdominal pain right lower quadrant. Onset: The rn symptoms/episode began/occurred at an unknown time. The symptoms do not radiate. Associated signs and symptoms: Pertinent negatives: nausea and vomiting, anorexia, blood in stools, chest pain, constipation, diarrhea, dysuria, fever, hematuria, testicular pain, vomiting blood. The symptoms are described as achy. Modifying factors: The symptoms are alleviated by nothing, the symptoms are aggravated by touching the area. Severity of pain: At its worst the pain was mild in the emergency department the pain has improved. The patient has not experienced similar symptoms in the past. The patient has not recently seen a physician. Historical: - Allergies: 07:42 No Known Allergies; hb - Home Meds: 07:42 aspirin 81 mg Oral TbEC 1 tab once daily [Active]; hb 07:43 atenolol 25 mg Oral tab 1 tab once daily [Active]; metoprolol tartrate 25 mg Oral tab hb [Active]; - PMHx: 07:42 Alzheimer's disease; Anemia; blood transfusion from bleeding ucler; CAD; CVA; GI Bleed; hb Hypertension; Ulcers; - PSHx: 07:42 open heart surgery; hb - Immunization history:: Adult Immunizations up to date. - Social history:: Smoking status: Patient denies any tobacco usage or history of. - Family history:: not pertinent. - Hospitalizations: : No recent hospitalization is reported. ROS: 08:42 Constitutional: Negative for fever, chills, and weight loss, Eyes: Negative for injury, rn pain, redness, and discharge, Cardiovascular: Negative for chest pain, palpitations, and edema, Respiratory: Negative for shortness of breath, cough, wheezing, and pleuritic chest pain, Abdomen/GI: + right abd/inguinal pain Back: Negative for injury and pain, : Negative for injury, bleeding, discharge, and swelling, MS/Extremity: Negative for injury and deformity, Skin: Negative for injury, rash, and discoloration, Neuro: Negative for headache, weakness, numbness, tingling, and seizure. Exam: 08:42 Constitutional: This is a well developed, well nourished patient who is awake, alert, rn and in no acute distress. Head/Face: Normocephalic, atraumatic. Cardiovascular: Regular rate and rhythm. No pulse deficits. Respiratory: No increased work of breathing, no retractions or nasal flaring. Abdomen/GI: Soft, mild right inguinal tenderness with what feels like lymphadenopathy, no obvious hernia or peritoneal signs. Skin: Warm, dry MS/ Extremity: Pulses equal, no cyanosis. Neuro: Awake and alert, GCS 15 Vital Signs: 07:41 BP 140 / 93; Pulse 90; Resp 16; Temp 98.4; Pulse Ox 100% on R/A; Weight 68.04 kg; hb Height 5 ft. 5 in. (165.10 cm); Pain 5/10; 08:30 BP 148 / 91; Pulse 89; Resp 15; Pulse Ox 99% on R/A; hb 10:34 BP 127 / 86; Pulse 88; Resp 16; Pulse Ox 99% on R/A; hb 11:38 BP 126 / 89; Pulse 85; Resp 17; Pulse Ox 100% on R/A; hb 13:49 BP 135 / 88; Pulse 84; Resp 16; Pulse Ox 99% on R/A; hb 07:41 Body Mass Index 24.96 (68.04 kg, 165.10 cm) hb MDM: 07:41 Patient medically screened. rn 10:21 Differential diagnosis: appendicitis, bowel obstruction, diverticulitis, non-specific rn abd pain. 10:25 Data reviewed: vital signs, nurses notes, lab test result(s), radiologic studies, CT rn scan, and as a result, I will admit patient. Consideration of Admission/Observation Patient was admitted/placed on observation. Independent interpretation of the following test(s) in the Emergency Department CT Scan: My interpretation is Possible volvulus on CT of abdomen. Historians other than the Patient: EMS: EMS gave most of story given patient's hx of dementia. Counseling: I had a detailed discussion with the patient and/or guardian regarding: the historical points, exam findings, and any diagnostic results supporting the discharge/admit diagnosis, lab results, radiology results, the need for further work-up and treatment in the hospital. 10:25 Management of patient was discussed with the following: Petal Cutter: Case and management rn discussed with Dr. Yi. . 10/28 07:41 Order name: CBC with Diff; Complete Time: 09:02 rn 10/28 07:41 Order name: CMP; Complete Time: 09:02 rn 10/28 07:41 Order name: Urine Microscopic Only; Complete Time: 09:02 rn 10/28 07:41 Order name: CT Abd/Pelvis - IV Contrast Only; Complete Time: 10:07 rn 10/28 08:39 Order name: Urine Dipstick-Ancillary; Complete Time: 09:02 EDMS 10/28 11:03 Order name: SARS RAPID eb 10/28 07:41 Order name: IV Saline Lock; Complete Time: 08:23 rn 10/28 07:41 Order name: Labs collected and sent; Complete Time: 08:23 rn 10/28 07:41 Order name: Urine Dipstick-Ancillary (obtain specimen); Complete Time: 08:32 rn 10/28 08:30 Order name: Labs - recollect needed: blood hemolyzed; Complete Time: 08:39 eb Administered Medications: 11:38 Drug: Zosyn (piperacillin-tazobactam) 3.375 grams Route: IVPB; Infused Over: 60 mins; hb Site: left forearm; Disposition Summary: 10/28/22 10:47 Hospitalization Ordered Hospitalization Status: Observation rn Provider: Von Scherer rn Location: Telemetry/MedSurg (observation) rn Condition: Stable rn Problem: new rn Symptoms: have improved rn Bed/Room Type: Standard rn Room Assignment: 213(10/28/22 14:23) eb Diagnosis - Lower abdominal pain, unspecified rn - Volvulus rn Forms: - Medication Reconciliation Form rn - SBAR form rn Signatures: Dispatcher [employer] Joaquin Farfan MD MD rn Baxter, Heather RN Francine Ureña Corrections: (The following items were deleted from the chart) 14:23 10:47 rn eb
--- NOTE | 2022-10-28 10:48 | ER ---
Nurse's Notes [facility] Name: Cecil Butterfield Age: 82 yrs Sex: Male : 1940 Arrival Date: 10/28/2022 Time: 07:40 Bed 8 Private MD: Diagnosis: Lower abdominal pain, unspecified;Volvulus Presentation: 10/28 07:41 Chief complaint: Right lower abdominal pain x 2 days. Coronavirus screen: At this time, hb the client does not indicate any symptoms associated with coronavirus-19. Ebola Screen: No symptoms or risks identified at this time. Initial Sepsis Screen: Does the patient meet any 2 criteria? No. Patient's initial sepsis screen is negative. Does the patient have a suspected source of infection? No. Patient's initial sepsis screen is negative. Risk Assessment: Do you want to hurt yourself or someone else? Patient reports no desire to harm self or others. Onset of symptoms was October 26, 2022. 07:41 Method Of Arrival: EMS: [facility] hb 07:41 Acuity: JAMSHID 3 hb Historical: - Allergies: 07:42 No Known Allergies; hb - Home Meds: 07:42 aspirin 81 mg Oral TbEC 1 tab once daily [Active]; hb 07:43 atenolol 25 mg Oral tab 1 tab once daily [Active]; metoprolol tartrate 25 mg Oral tab hb [Active]; - PMHx: 07:42 Alzheimer's disease; Anemia; blood transfusion from bleeding ucler; CAD; CVA; GI Bleed; hb Hypertension; Ulcers; - PSHx: 07:42 open heart surgery; hb - Immunization history:: Adult Immunizations up to date. - Social history:: Smoking status: Patient denies any tobacco usage or history of. - Family history:: not pertinent. - Hospitalizations: : No recent hospitalization is reported. Screenin:24 [facility] ED Fall Risk Assessment (Adult) Score/Fall Risk Level 3 or more points = High hb Risk Oriented to surroundings, Maintained a safe environment, Educated pt \T\ family on fall prevention, incl call for assistance when getting out of bed, Hourly rounding (assess needs \T\ fall precautionary measures) done, Remained with patient while ambulating. Abuse screen: Denies threats or abuse. Denies injuries from another. Nutritional screening: No deficits noted. Tuberculosis screening: No symptoms or risk factors identified. Assessment: 08:05 General: Appears in no apparent distress. Behavior is cooperative, agitated. Pain: Pain hb currently is 5 out of 10 on a pain scale. Neuro: Level of Consciousness is awake, alert, obeys commands, Oriented to person, place, situation. Cardiovascular: Patient's skin is warm and dry. Respiratory: Respiratory effort is even, unlabored, Respiratory pattern is regular, agonal. GI: Abdomen is non-distended, Reports lower abdominal pain. : No signs and/or symptoms were reported regarding the genitourinary system. EENT: No signs and/or symptoms were reported regarding the EENT system. Derm: Skin is pink, warm \T\ dry. Musculoskeletal: No signs and/or symptoms reported regarding the musculoskeletal system. 09:27 Reassessment: Patient appears in no apparent distress at this time. No changes from hb previously documented assessment. Patient and/or family updated on plan of care and expected duration. Pain level reassessed. 10:34 Reassessment: Patient appears in no apparent distress at this time. No changes from hb previously documented assessment. Patient and/or family updated on plan of care and expected duration. Pain level reassessed. 11:38 Reassessment: Patient appears in no apparent distress at this time. No changes from hb previously documented assessment. Patient and/or family updated on plan of care and expected duration. Pain level reassessed. 12:45 Reassessment: Patient appears in no apparent distress at this time. No changes from hb previously documented assessment. Patient and/or family updated on plan of care and expected duration. Pain level reassessed. 13:49 Reassessment: Patient appears in no apparent distress at this time. No changes from hb previously documented assessment. Patient and/or family updated on plan of care and expected duration. Pain level reassessed. Vital Signs: 07:41 BP 140 / 93; Pulse 90; Resp 16; Temp 98.4; Pulse Ox 100% on R/A; Weight 68.04 kg; hb Height 5 ft. 5 in. (165.10 cm); Pain 5/10; 08:30 BP 148 / 91; Pulse 89; Resp 15; Pulse Ox 99% on R/A; hb 10:34 BP 127 / 86; Pulse 88; Resp 16; Pulse Ox 99% on R/A; hb 11:38 BP 126 / 89; Pulse 85; Resp 17; Pulse Ox 100% on R/A; hb 13:49 BP 135 / 88; Pulse 84; Resp 16; Pulse Ox 99% on R/A; hb 07:41 Body Mass Index 24.96 (68.04 kg, 165.10 cm) hb ED Course: 07:40 Patient arrived in ED. hb 07:41 Joaquin Scherer MD is Attending Physician. rn 07:42 Triage completed. hb 07:43 Arm band placed on. hb 08:10 Patient has correct armband on for positive identification. Placed in gown. Bed in low mm9 position. Call light in reach. Side rails up X2. Pulse ox on. NIBP on. 08:10 Missed attempt(s): 22 gauge in left forearm. mm9 08:22 Initial lab(s) drawn, by me, sent to lab. Inserted saline lock: 22 gauge in left jl7 forearm, using aseptic technique. Blood collected. 08:33 Khadra Williamson, RN is Primary Nurse. hb 08:37 Urine collected: clean catch specimen, jaswinder colored. tm3 09:24 CT Abd/Pelvis - IV Contrast Only In Process Unspecified. EDMS 10:47 Von Scherer MD is Hospitalizing Provider. rn 11:38 SARS RAPID Sent. hb Administered Medications: 11:38 Drug: Zosyn (piperacillin-tazobactam) 3.375 grams Route: IVPB; Infused Over: 60 mins; hb Site: left forearm; Outcome: 10:47 Decision to Hospitalize by Provider. rn 15:18 Patient left the ED. hb Signatures: Dispatcher [employer] EDMS Marshall Fischer tm3 Joaquin Scherer MD MD rn Baxter, Heather, RN RN Annemarie Gonzales RN RN Lia Lockhart mm9
[2022-10-28] MEDS ORDERED: PIPERACIL/TAZO 3.375 GM VIAL IV ONE (11:15)
[2022-10-28] MEDS ORDERED: NA CHLORIDE 0.9% 100 ML ONE (11:15)
[2022-10-28 11:56] LABS: SARS-CoV-2 Antigen Rapid Res Negative (Negative)
--- NOTE | 2022-10-28 13:48 | P.HP ---
Certification for Inpatient Patient admitted to: Observation (Assisted living) With expected LOS: <2 Midnights Patient will require the following post-hospital care: Other (Assisted living) Practitioner: I am a practitioner with admitting privileges, knowledge of patient current condition, hospital course, and medical plan of care. Services: Services provided to patient in accordance with Admission requirements found in Title 42 Section 412.3 of the Code of Federal Regulations Patient History Date of Service: 10/28/22 Reason for admission: RLQ pain History of Present Illness: 82-year-old male with history of CAD status post CABG, PUD, hypertension, Alzheimer's disease, and CVA. Presents the emergency department for complaints of RLQ abdominal pain. Patient was evaluated at the bedside, patient is alert to self, hard of hearing and very confused. Patient is a very poor historian due to baseline cognitive deficit. 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 Per chart review patient lives at the [employer] assisted living facility due to history of CVA. Patient stated that his pain started 2 days ago while working at "his job" at the [employer] At the time of the pain, he reported 10 out of 10 pain. He stated that he took some aspirin and some unknown painkillers with no improvement. EMS was called and he was brought to the emergency room for further treatment. Patient denies any abdominal pain during encounter. No nausea or vomiting reported. CT abdomen was positive for prominent diverticulosis coli of the sigmoid colon without diverticulitis, and mild volvulus. Patient will be admitted under the care of Dr. Scherer. Surgery will be consulted for further recommendation and evaluation. 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 - Family History Father -: Liver disease - Social History Alcohol use: No CD- Drugs: No Caffeine use: No Place of Residence: Care Home Review of Systems 10-point ROS is otherwise unremarkable Gastrointestinal: Abdominal Pain Physical Examination - Vital Signs Temperature: 98.4 F Blood Pressure: 127/86 Pulse: 88 Respirations: 18 Pulse Ox (%): 99 - Physical Exam General: Alert, Oriented x1, Confused HEENT: Atraumatic, Normocephalic, PERRLA Neck: Supple Respiratory: Clear to auscultation bilaterally, Normal air movement Cardiovascular: No edema, Normal pulses Capillary refill: <2 Seconds Gastrointestinal: Normal bowel sounds, No tenderness Musculoskeletal: No clubbing, No swelling Integumentary: No rashes, No breakdown Neurological: Normal strength at 5/5 x4 extr, Sensation intact Lymphatics: No axilla or inguinal lymphadenopathy - Studies Laboratory Data (last 24 hrs) 10/28/22 08:36: Sodium 139, Potassium 4.4, BUN 12, Creatinine 0.66 L, Glucose 96, Total Bilirubin 0.8, AST 15, ALT 15 L, Alkaline Phosphatase 51 10/28/22 08:18: WBC 9.10, Hgb 16.1, Hct 48.1, Plt Count 275 Assessment and Plan - Plan Assessment Volvulus CAD s/p CABG CVA HTN GERD Alzheimer's Plan Surgery consulted, recommendations appreciated Continue Plavix, aspirin, statin Resume other home meds when appropriate Monitor blood pressure, call attending if systolic is greater than 160 Keep NPO Continue IV fluids DVT PPX- SCDs Code status- Full code Discharge Plan: Care Home Plan to discharge in: 48 Hours - Advance Directives Does patient have a Living Will: No Does patient have a Durable POA for Healthcare: No - Code Status/Comfort Care Code Status Assessed: Yes (Full code) Critical Care: No Time Spent Managing Pts Care (In Minutes): 50
[2022-10-28] MEDS ORDERED: ACETAMINOPHEN 500 MG TAB PO PRN (13:52)
[2022-10-28] MEDS ORDERED: ONDANSETRON 4 MG/2 ML VIAL IV PRN (13:52)
[2022-10-28] MEDS: NA CHLORIDE 0.9% 1,000 ML IV SCH (14:00)
[2022-10-28] MEDS ORDERED: ENOXAPARIN 40 MG/0.4 ML SQ SCH (15:00)
[2022-10-28 15:30] VITALS: O2SAT 99
[2022-10-28 17:27] VITALS: BMI 25.0
--- NOTE | 2022-10-28 17:43 | CON ---
Date of Consultation: 10/28/2022 Reason For Consultation: Abdominal pain. History Of Present Illness: The patient is an 82-year-old gentleman who comes from the custodial with two-day history of right lower quadrant abdominal pain. Currently, denies any nausea or vomitin g. He is having bowel movements. He is passing gas. When he came in, he was just complaining of pa in and achy in nature. The patient denies diarrhea, constipation, blood in his stool, dysuria, hemat uria, sore throat, runny nose, cough, headaches, dizziness, chest pain, fever or chills. Review of Systems: Otherwise unremarkable. Past Medical History: History of Alzheimer disease, anemia, coronary artery disease, bleeding ulcers , CVA, hypertension, CABG. Past Surgical History: CABG. Allergies: NO ALLERGIES. Social History: The patient does not smoke or drink currently. Family History: Noncontributory. Physical Examination: Vital Signs: Stable. He is afebrile. General: He is awake, alert, and oriented x3. Head and Neck: Cranial nerves 2 through 12 grossly within normal limits. No neck masses. No JVD. Throat clear. Neck is supple. Chest: Clear. Heart: S1 and S2. Abdomen: Soft, nondistended, nontender. Positive bowel sounds. Extremities: Neurovascularly intact. Neuro: Nonfocal. : Unremarkable. Laboratory Data: CT scan of the abdomen and pelvis reveals twisting configuration in the right lower quadrant of the fat and vessels. No obstruction. This may represent mild volvulus of the fat and s mall intestine in this region. There is prominent diverticulosis coli without evidence of diverticul itis. His white count is normal. He does not have a left shift. Chemistry reviewed is within rafael l limits. Urinalysis is negative. COVID test is negative. Assessment: An 82-year-old gentleman with right lower quadrant abdominal pain essentially resolved. Recommendations: At this time, there is no need for any surgical intervention. I will recommend sta rting diet. If patient tolerates that without any pain, he could be discharged home in the next 24 h ours. Please re-consult surgery p.r.n. It appears that whatever the small twist was has clinically resolved. /MODL Voice ID: [id number] Report ID: [id number]
[2022-10-28] MEDS: FAMOTIDINE 20 MG/2 ML VIAL IV SCH (20:13)
[2022-10-28] MEDS ORDERED: ATORVASTATIN 40 MG TAB PO SCH (21:00)
[2022-10-29] MEDS: NA CHLORIDE 0.9% 1,000 ML IV SCH (03:32)
[2022-10-29 04:34] VITALS: TEMP 97.1
[2022-10-29 06:26] LABS: Absolute Lymphocytes (CBC) 1.6 K/uL (0.7-4.9); Hematocrit 41.6 % (39.6-49.0); Lymphocytes % 24.1 % (15.3-44.8); MCV 100.1 fL (80-100); MPV 7.6 fL (7.6-11.3); RBC Red Blood Cell Count 4.16 M/uL (4.33-5.43)
[2022-10-29 08:08] VITALS: BP 141/75
[2022-10-29] MEDS: FAMOTIDINE 20 MG/2 ML VIAL IV SCH (08:12)
--- NOTE | 2022-10-29 08:19 | P.DS ---
Admission Date: 10/28/22 Discharge Date: 10/29/22 Disposition: ROUTINE DISCHARGE Reason for Admission: RLQ pain Vital Signs/Physical Exam: Temp Pulse Resp BP Pulse Ox 97.1 F 58 14 141/75 H 99 10/29/22 08:00 10/29/22 08:00 10/29/22 08:00 10/29/22 08:00 10/29/22 08:00 Laboratory Data at Discharge: WBC 6.80 K/uL (4.3-10.9) 10/29/22 06:07 Hgb 14.0 g/dL (13.6-17.9) D 10/29/22 06:07 Hct 41.6 % (39.6-49.0) 10/29/22 06:07 Plt Count 236 K/uL (152-406) 10/29/22 06:07 Sodium 139 mmol/L (136-145) 10/29/22 06:07 Potassium 4.0 mmol/L (3.5-5.1) 10/29/22 06:07 BUN 9 mg/dL (7-18) 10/29/22 06:07 Creatinine 0.58 mg/dL (0.70-1.30) L 10/29/22 06:07 Glucose 89 mg/dL (74-106) 10/29/22 06:07 Total Bilirubin 0.8 mg/dL (0.2-1.0) 10/28/22 08:36 AST 15 U/L (15-37) 10/28/22 08:36 ALT 15 U/L (16-61) L 10/28/22 08:36 Alkaline Phosphatase 51 U/L (45-117) 10/28/22 08:36 Home Medications: Aspirin 81 mg PO DAILY #30 tab.chew 12/19/21 Atorvastatin Calcium [Lipitor] 80 mg PO BEDTIME 30 Days #30 tab 07/10/22 Clopidogrel Bisulfate [Plavix] 75 mg PO DAILY 30 Days #30 tab 07/10/22 Folic Acid 1 mg PO DAILY 30 Days #30 tab 07/10/22 Physician Discharge Instructions: Patient presented with lower abdominal pain. Labs were within normal limits. CT noted possible volvulus. No evidence of infection or other acute process. Patient was admitted for observation, and shortly after admission his pain resolved. He was passing flatus, +bowel movement, and without nausea/vomiting/pain. Dr. Yi, general surgery, was consulted, recommended advancing diet and stable for discharge if no longer symptomatic. He remained afebrile and without leukocytosis. He was continued on his home medications and given some IV fluids. Continue home medications as previously prescribed. No change in medications. Diet as tolerated Followup: Catracho Aranda MD [Primary Care Provider] -
[2022-10-29] MEDS ORDERED: CLOPIDOGREL 75 MG TABLET PO SCH (09:00)
[2022-10-29] MEDS ORDERED: ASPIRIN EC 81 MG TAB PO SCH (09:00)
== END 2022-10-29 11:53 | disposition home or self-care (01) ==
LOC: ER 07:39 → ERHOLD 13:48 → 2ND 14:49
PROVIDERS: ADMIT Hospitalist; ATTEND Hospitalist
DX: R10.31 Right lower quadrant pain (principal); I25.10 Atherosclerotic heart disease of native coronary artery without angina pectoris; I10 Essential (primary) hypertension; G30.9 Alzheimer's disease, unspecified; F02.80 Dementia in other diseases classified elsewhere, unspecified severity, without behavioral disturbance, psychotic disturbance, mood disturbance, and anxiety; K21.9 Gastro-esophageal reflux disease without esophagitis; K56.2 Volvulus; Z95.1 Presence of aortocoronary bypass graft; Z86.73 Personal history of transient ischemic attack (TIA), and cerebral infarction without residual deficits; Z20.822 Contact with and (suspected) exposure to COVID-19
CPT/HCPCS: 85025 ×2; 80048; 36415; 80053; 74177; 96374; 99284; 87811; Q9967; J2543; J7030 ×2; 81003; 81015; G0378

== ENCOUNTER 2022-10-29 20:57 | Emergency (ER) | payer MEDICARE, BC ==
--- OUTSIDE RECORDS SUMMARY | 2022-10-29 21:05 | XMS REPORT | Continuity of Care Document ---
:1940 Author Organization [facility] t Address [address] [place] [address] Care Team Providers Name Role Phone Aldo Aranda Pollo Primary Care Physician OBED CABRERA Attending Clinician Unavailable Maurilio Castro MD Attending Clinician MAURILIO CASTRO Attending Clinician Unavailable MAURILIO CASTRO Attending Clinician Unavailable Doctor Unassigned, [place] Attending Clinician Unavailable CAREN WOOD Attending Clinician Unavailable Lauren Saha Attending Clinician [phone] KATHERINE SHIRLEY Attending Clinician Unavailable LAUREN KAHN Attending Clinician Unavailable Katherine Shirley MD Attending Clinician Kade Fierro RN Attending Clinician Unavailable REBEKAH MCKEON Attending Clinician Unavailable Rebekah Mckeon MD Attending Clinician JASS URBINA Attending Clinician Unavailable Gerson Abbott MD Attending Clinician Jass Urbina MD Attending Clinician JACE LYNCH Attending Clinician Unavailable Nurse, Adc Pob Immunization Attending Clinician Unavailable Jace Lynch DO Attending Clinician Provider, [facility] Attending Clinician Unavailable Syed [employer]OY[employer] INSTRUCTION[employer] ASSOCIATETari Feliz Attending Clinician TARI LYNCH Attending Clinician Unavailable Alverto [employer], Kassidy Attending Clinician Aldo Breen DO Attending Clinician ALDO BREEN Attending Clinician Unavailable Deborah VENCES, Obed Lucas Attending Clinician Ibikunle [employer], Jumana F Attending Clinician Only, Adc Test Attending Clinician Unavailable Karel [employer], Juliana Gandhi Attending Clinician Henok RN, Peggy Adkins Attending Clinician Michelet VENCES, Vadim Lee Attending Clinician Nate VENCES, Kuldip Gil Attending Clinician Umang Ny MD Attending Clinician Rodney VENCES, Monty Hooper Attending Clinician VADIM MCDANIEL Attending Clinician Unavailable MARC COREAS Attending Clinician Unavailable OBED CABRERA Admitting Clinician Unavailable MAURILIO CASTRO Admitting Clinician Unavailable REBEKAH MCKEON Admitting Clinician Unavailable JASS URBINA Admitting Clinician Unavailable Jass Urbina MD Admitting Clinician Aldo Breen DO Admitting Clinician ALDO BREEN Admitting Clinician Unavailable Obed Cabrera MD Admitting Clinician Umang Ny MD Admitting Clinician Payers Payer Name Policy Type Policy Number Effective Date Expiration Date Jesus ann SAMM JALEN [id number] 2017 00:00:00 MEDICARE PART A \\T\\ [id number] 2004 B 00:00:00 Problems Condition Condition Condition Status Onset Resolution Last Treating Co mments Source Name Details Category Date Date Treatment Clinician Date Hematemesi Hematemesi Disease Active U nivers s with s with 1-14 ity of nausea nausea 00:00: [place] 00 Medical Branch Abdominal Abdominal Disease Active Uni vers pain, pain, 1-14 ity of epigastric [place]igastric [place] Fatigue, Fatigue, Disease Active Unive rs unspecifie unspecifie 1-14 it y of d type d type 00:00: [place] 00 Medical Branch Urinary Urinary Disease Active Univers tract tract 1-14 it[place] of infection [place] without without 00 Medical hematuria, hematuria, Br anch site site unspecifie unspecifie d d Weight Weight Disease Active Univers loss, loss, 1-14 ity of unintentio unintentio [place] n[place] 00 Medical Branch Indigestio Indigestio Disease Active U nivers n n 1-14 ity of 00:00: [place] 00 Medical Branch Nausea and Nausea and Disease Active U nivers vomiting, vomiting, 1-08 ity of intractabi intractabi [place] lity of lity of 00 Medical vomiting vomiting Branch not not specified, specified, unspecifie unspecifie d vomiting d vomiting type type FRIED FRIED Disease Active Univers (dyspnea (dyspnea 6-06 ity of on on 00:00: [place] exertion) exertion) 00 [facility] joana Branch Essential Essential Disease Active Uni vers hypertensi hypertensi 6-06 it y of on on 00:00: [place] 00 Medical Branch Dyslipidem Dyslipidem Disease Active U nivers ia ia 6-06 ity of 00:00: [place] 00 Medical Branch 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 angina angina Added pectoris pectoris automatic ally from request for surgery [id number] Chest pain Chest pain Disease Active U [...] Added automatic ally from request for surgery [id number] Allergies, Adverse Reactions, Alerts Allergy Allergy Status Severity Reaction(s) Onset Inactive Treating Comm ents Source Name Type Date Date Clinician NO KNOWN Drug Active Univers ALLERGIE Class ity of S [facility] Social History Social Habit Start Date Stop Date Quantity Comments Source History SDOH University o f Alcohol Frequency [facility] [place] [facility] edical History [facility] University o f Alcohol Std Drinks [facility] History [facility] o f Alcohol [facility] Branch History of tobacco Cigarette Smoker University of use [facility] Exposure to 2022-05-03 2022-05-13 Not sure University of SARS-CoV-2 (event) 00:00:00 09:34:00 [facility] Cigarettes smoked 2022-04-11 2022-04-11 Univers ity of current (pack per 00:00:00 00:00:00 [facility] ) - Reported Branch Cigarette 2022-04-11 2022-04-11 University of pack-years 00:00:00 00:00:00 [facility] Alcohol intake 2022-04-11 2022-04-11 Current drinker Unive rsity of 00:00:00 00:00:00 of alcohol [facility] (finding) Branch Tobacco use and 2022-04-11 2022-04-11 Smokeless Universit y of exposure 00:00:00 00:00:00 tobacco non-user [facility] dical Branch Alcohol Comment 2021-01-06 2021-01-06 socially Universit y of 00:00:00 00:00:00 [facility] Sex [birth year] At [birth year] Universit y of 00:00:00 00:00:00 [facility] Smoking Status Start Date Stop Date Source Ex-smoker 2022-04-11 00:00:00 2022-04-11 00:00:00 Universi ty of [facility] Medications Ordered Filled Start Stop Current Ordering Indication Dosage Frequency Signature Comments Components Source Medication Medication Date Date Medication? Clinician (SIG) Name Name rivastigmin Yes 1{patch Apply 1 Univers e 9.5 mg/24 4-25 } Patch to ity of hour patch 00:00: skin [place] 00 daily. Medical Branch rivastigmin Yes 1{patch Apply 1 Univers e 9.5 mg/24 4-25 } Patch to ity of hour patch 00:00: skin [place] 00 daily. Medical Branch ondansetron Yes [id number] 8mg Take 1 Univers (ZOFRAN) 8 1-14 tablet by ity of mg tablet 00:00: mouth [place] 00 every 8 Medical (eight) Branch hours as needed for N/V unresponsi ve to Promethazi ne. famotidine Yes [id number] 40mg Take 1 U nivers (PEPCID) 40 1-14 tablet by ity of mg tablet 00:00: mouth 2 [place] 00 (two) Medical times Branch daily. ondansetron Yes [id number] 8mg Take 1 Univers (ZOFRAN) 8 1-14 tablet by ity of mg tablet 00:00: mouth [place] 00 every 8 Medical (eight) Branch hours as needed for N/V unresponsi ve to Promethazi ne. famotidine Yes [id number] 40mg Take 1 U nivers (PEPCID) 40 1-14 tablet by ity of mg tablet 00:00: mouth 2 [place] 00 (two) Medical times Branch daily. proMETHazin Yes [id number] 25mg Take 1 Univers e 25 mg 1-10 tablet by ity of tablet 00:00: mouth [place] 00 every 6 Medical (six) Branch hours as needed for Nausea and Vomiting (N/V). proMETHazin Yes [id number] 25mg Take 1 Univers e 25 mg 1-10 tablet by ity of tablet 00:00: mouth [place] 00 every 6 Medical (six) Branch hours as needed for Nausea and Vomiting (N/V). zolpidem 5 2020-09 Yes 5mg Take 5 mg Un mark mg tablet 2-23 by mouth ity of 00:00: at [place] 00 bedtime. Medical Branch zolpidem 5 2020-09 Yes 5mg Take 5 mg Un mark mg tablet 2-23 by mouth ity of 00:00: at [place] 00 bedtime. Medical Branch atorvastati Yes [id number] 80mg Take 1 Univers n 80 mg 7-13 tablet by ity of tablet 00:00: mouth at [place] 00 bedtime. Medical Branch clopidogreL Yes [id number] 75mg Take 1 Univers 75 mg 7-13 tablet by ity of tablet 00:00: mouth [place] 00 daily. Medical Branch metoprolol Yes [id number] 25mg Take 1 Univers tartrate 25 7-13 tablet by ity of mg tablet 00:00: mouth [place] 00 every 12 Medical (twelve) Branch hours. atorvastati Yes [id number] 80mg Take 1 Univers n 80 mg 7-13 tablet by ity of tablet 00:00: mouth at [place] 00 bedtime. Medical Branch clopidogreL Yes [id number] 75mg Take 1 Univers 75 mg 7-13 tablet by ity of tablet 00:00: mouth [place] 00 daily. Medical Branch metoprolol Yes [id number] 25mg Take 1 Univers tartrate 25 7-13 tablet by ity of mg tablet 00:00: mouth [place] 00 every 12 Medical (twelve) Branch hours. mupirocin 2 Yes [id number] Apply to Univers % ointment 5-08 area(s) 3 ity of 00:00: (three) [place] 00 times Medical daily. Branch mupirocin 2 Yes [id number] Apply to Univers % ointment 5-08 area(s) [...] acute pain 1{tbl} Take 1 Univers en-codeine 01-2814 tablet by ity of 300-30 mg 00:00: [...] Medic al (NS) 250 mL 01/26/21 at [facility] piggyback 0615, 250 mL metoprolol 2020- No [...] dose Med ical 12.5 mg on Mon [place] 01/25/21 at 0900, Until Discontinu ed, Routine [...] Medical 01/25/21 at Branch 0000, Routine albumin No 12.5g 12.5 g, IV Un makr (ALBUMINAR- 01-24-02 Infusion, it y of 5) 5 % [...] dose Medi joana 400 mg/5 mL on [facility] suspension 01/24/21 at 30 mL 1400, Until Discontinu ed, Routine lactated 2020- No 250mL at 999 Unive rs ringers IV 01-24 05-02 mL/hr, 250 it y of infusion 15:45: 15:15 mL, [place] 250 mL 00 :00 Intravenou Medical s, ONCE, 1 Branch dose, [place] 01/24/21 at 1045, Routine clopidogreL Yes 75mg 75 mg, Univ ers (PLAVIX) 01-24 Oral, ity of tablet 75 14:00: DAILY, [place] mg 00 First dose Medical on [facility] 01/24/21 at 0900, Until Discontinu ed, Routine
political science faculty member approving Restricted medication : OBED CABRERA aspirin Yes 81mg 81 mg, Univers chewable 01-24 Oral, ity of tablet 81 14:00: DAILY, [place] mg 00 First dose Medical on [facility] 01/24/21 at 0900, Until Discontinu ed, Routine pantoprazol 2020- No 40mg 40 mg, Uni vers e 01-24 06 Oral, ity of (PROTONIX) 14:00: 13:59 DAILY, 30 [place] EC tablet 00 :00 doses, Medical 40 mg First dose Branch on [place] 01/24/21 at 0900, Last dose on Mon02/22/21 at 0900, Routine atorvastati Yes 80mg 80 mg, Univ ers n (LIPITOR) 01-24 Oral, QHS, it y of tablet 80 02:00: First dose [place] mg 00 on [facility] 01/23/21 at Branch 2100, Until Discontinu ed, Routine ferrous Yes 325mg 325 mg, Univer s sulfate 01-23 Oral, ity of tablet 325 21:30: BIDAC, [place] mg 00 First dose Medical on [facility] 01/23/21 at 1630, Until Discontinu ed, Routine [...] IV ity of (D50W) 14:02: Push, PRN, [place] injection 37 Starting Medica l 25 mL 01/23/21 Branch at 0902, Until Discontinu ed, EMBER, Blood Glucose < or = 70 mg/dL and patient is unable to swallow or has mental status changes. ondansetron Yes 4mg 4 mg, Slow Univers (ZOFRAN 01-23 IV Push, ity of (PF)) 14:02: Q6HPRN, [place] injection 4 37 Starting Medi joana mg [...] - SEE [place] 10 mg 36 [facility], 1 [place] dose, Starting 01/23/21 at 0902, Until Discontinu ed, Routine, Constipati on, For bowel movent acetaminoph 0 Yes 650mg 650 mg, Un mark en 01-23 Oral, ity of (TYLENOL) 14:02: Q6HPRN, [place] tablet 650 36 Starting Medic al mg 01/23/21 Branch at 0902, Until Discontinu ed, Routine, Temp > 38.5 C acetaminoph 0 Yes 2{tbl} 2 tablet, Univers en-codeine 01-23 Oral, ity of (TYLENOL 14:02: Q4HPRN, [place] #3) 300-30 36 Starting Medic al mg tablet 2 01/23/21 Br anch tablet at 0902, Until Discontinu ed, Routine, Pain (scale 7-10) acetaminoph Yes 1{tbl} 1 tablet, Univers en-codeine 01-23 Oral, ity of (TYLENOL 14:02: Q6HPRN, [place] #3) 300-30 36 Starting Medic al mg tablet 1 01/23/21 Br anch tablet at 0902, Until Discontinu ed, Routine, Pain (scale 4-6) sodium 2020- No 30mmol 30 mmol, [facility] ers phosphate 01-23 IV ity of 30 mmol in 12:45: 16:59 [place], [place] NaCl 0.9% 00 :00 ONCE, 1 Medical (NS) 250 mL dose, Sat [facility] piggyback 01/23/21 at 0745, 250 mL digoxin 2020- No 250ug 250 mcg, [facility] ers (LANOXIN) 01-23 Intravenou ity of injection 01:15: 00:58 s, ONCE, 1 [place] 250 mcg 00 :00 dose, [facility] Medical 01/22/21 at Branch 2015, Routine potassium 2020-2020- No 40meq 40 mEq, [...] :00 dose, Fri Medical 01/22/21 at Branch 1215, Routine furosemide [...] without an adequate hemodynami c response. digoxin 2020- No 250ug 250 mcg, Univ ers (LANOXIN) 01-22 Intravenou ity of injection 14:07: 14:11 s, ONCE, 1 [place] 250 mcg 00 :00 dose, Fri Medical 01/22/21 at Branch 0915, Routine pantoprazol No 40mg 40 mg, Uni vers e 01-22 0501 Oral, ity of (PROTONIX) 14:00: 14:06 DAILY, [place] EC tablet 00 :55 First dose Medi joana 40 mg on Mon Branch 01/22/21 at 0900, Until Discontinu ed, Routine D5W-LR IV 2020- No 1000mL at 42 Univ ers infusion 01-22-30 mL/hr, IV ity o f 1,000 mL 13:15: 15:40 Infusion, [place] 00 :21 CONTINUOUS Medical , Starting Branch Mon01/22/21 at 0815, Until Mon01/22/21 at 1040, EMBER digoxin No .5mg 500 mcg Univer s (LANOXIN) 01-22 (0.5 mg), ity of injection 11:29: 11:47 Intravenou [place] 500 mcg 00 :00 s, ONCE, 1 Medica l dose, Fri Branch 01/22/21 at 0630, Routine sodium 2020- No 30mmol 30 mmol, Univ ers phosphate 01-22 IV ity of 30 mmol in 10:24: 15:28 Piggyback, [place] NaCl 0.9% 00 :00 ONCE, 1 Medical (NS) 250 mL dose, Mon [facility] piggyback 01/22/21 at 0530, 250 mL metoprolol [...] :00 dose, Mon Medical (ISO-OSM) 01/22/21 at [facility] RTU IV 0415, infusion 2 Routine g furosemide No 20mg 20 mg, Univ ers (LASIX) 01-22 Slow IV ity of injection 08:39: 09:05 Push, [place] 20 mg 00 :00 ONCE, 1 Medical dose, Mon [place] 01/22/21 at 0345, Routine atorvastati No 80mg 80 mg, Uni vers n (LIPITOR) 01-22 Oral, QHS, i ty of tablet 80 02:00: 14:06 First dose [place] mg 00 :55 on [facility] 01/21/21 at Branch 2100, Until Discontinu ed, Routine metoprolol No 12.5mg 12.5 mg, Univers tartrate 01-22 Oral, BID, ity of (LOPRESSOR) 01:00: 15:21 First dose [place] half tablet 00 :01 (after Medica l 12.5 mg last Branch modificati on) on [facility] 01/21/21 at 2000, Until Discontinu ed, Routine clopidogreL No 75mg 75 mg, Uni vers (PLAVIX) 01-21 Oral, ity of tablet 75 22:00: 14:06 DAILY, [place] mg 00 :55 First dose Medical on [facility] 01/21/21 at 1700, Until Discontinu ed, Routine
political science faculty member approving Restricted medication : DEBORAH OBED Opal albumin No 25g 25 g, IV Unive rs (ALBUMINAR 01-21 Infusion, ity of 25%) 25 % 15:45: 14:39 ONCE, 1 [place] injection 00 :00 dose, Evelyn Medic al 25 g 01/21/21 at Branch 1045, 100 mL
Marie cation: NON-APPROV ED INDICATION - PHARMACY WILL CALL ORDERING PROVIDER<b r>Specific Indication : post cabg
Fa culty Requesting Approval: ANATOLIY CARDONA sennosides No 8.6mg 8.6 mg, Un mark (SENOKOT) 01-21 Oral, ity of tablet 8.6 14:00: 14:06 DAILY, [place] mg 00 :55 First dose Medical on [facility] Branch 01/21/21 at 0900, Until Discontinu ed, Routine docusate No 100mg 100 mg, Univ ers (COLACE) 01-21 Oral, ity of capsule 100 14:00: 14:06 DAILY, [place] mg 00 :55 First dose Medical on [facility] Branch 01/21/21 at 0900, Until Discontinu ed, Routine magnesium No 2g 2 g, IV Univ ers sulfate in 01-21 Piggyback, it y of water 2 13:00: 12:43 ONCE, 1 [place] gram/50 mL 00 :00 dose, [facility] Medi joana (4 %) 01/21/21 at Branch infusion 2 0800, g Routine aspirin No 81mg 81 mg, Univers chewable 01-21 Oral, ity of tablet 81 06:30: 14:06 DAILY, [place] mg 00 :55 First dose Medical on [facility] Branch 01/21/21 at 0130, Until Discontinu ed, Routine pantoprazol No 40mg 40 mg, IV Univers e 01-21 Piggyback, ity of (PROTONIX) 05:00: 13:07 Q24H, [place] 40 mg in 00 :02 First dose Medic al NaCl 0.9% on [facility] Branch (NS) 100 mL 4/29/21 at MINI-BAG 0000, Until Discontinu ed, 100 mL NaCl 0.9% 2020- No 250mL at 999 Univ ers (NS) bolus 01-21 mL/hr, 250 it y of infusion 04:07: 04:14 mL, IV [place] 250 mL 00 :00 Piggyback, Medical ONCE, 1 Branch dose, [facility] 01/20/21 at 2315, STAT potassium No 15mmol IV Unive rs phosphate 01-21 Piggyback, ity of 15 mmol in 04:00: 07:22 ONCE, 1 [place] NaCl 0.9% 00 :00 dose, Wed Medic al (NS) 150 mL 01/20/21 at [facility] piggyback 2300, 150 mL lidocaine 2020- No 100mg 100 mg, Uni vers 2% 01-21 Slow IV ity of (XYLOCAINE) 03:45: 03:39 Push, [place] syringe 100 00 :00 ONCE, 1 Medic al mg dose, [facility] Branch 01/20/21 at 2245, Routine calcium No 2g 2 g, IV Univer s gluconate 2 01-21 Infusion, it y of g in NaCl 01:00: 01:18 ONCE, 1 [place] 100 mL 00 :00 dose, [facility] Medical (ISO-OSM) 01/20/21 at [facility] RTU IV 2000, infusion 2 Routine g DOBUTamine 2020- No 2.5ug/k 2.5-20 U nivers (DOBUTREX) 01-21 05-01 g/min mcg/kg/min i ty of 500 mg in 00:22: 14:06 ?50 kg [place] 250 mL 33 :55 (3.75-30 Medical (Fixed mL/hr), IV Branch Dose) D5W Infusion, infusion TITRATE, RTU MAP Goal > or = 65 mmHg, Starting 01/20/21 at 1922
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 [place] pantoprazol 2020- No NSTEMI 40mg Take 1 U nivers e 40 mg EC 01-10 (non-ST tablet by ity of tablet 00:00: 00:00 elevated mouth [place] 00 :00 myocardial daily for Medi joana infarction) 90 days. Bran atorvastati 2020- No NSTEMI 80mg Take 1 [...] for Medi joana infarction) 90 days. [place] lisinopriL 2020- NSTEMI 2.5mg Take 1 U nivers 2.5 mg 01-09- (non-ST tablet by ity of tablet 00:00: 00:00 elevated mouth [place] 00 :00 myocardial daily for Medi joana infarction) 90 days. Mike Immunizations Ordered Filled Immunization Date Status Comments [facility] e Immunization Name Name SARS-COV-2 COVID-19 2021-08-27 Completed Unive rsity of MODERNA 0.25ML 00:00:00 [place] Medi joana BOOSTER VACCINE Branch SARS-COV-2 COVID-19 2021-08-27 Completed Unive rsity of MODERNA 0.25ML 00:00:00 [place] Medi joana BOOSTER VACCINE Branch SARS-COV-2 COVID-19 2020-12-20 Completed Unive rsity of MODERNA VACCINE 00:00:00 [facility] SARS-COV-2 COVID-19 2020-12-20 Completed Unive rsity of MODERNA VACCINE 00:00:00 [facility] SARS-COV-2 COVID-19 2020-12-20 Completed Unive rsity of MODERNA VACCINE 00:00:00 [facility] SARS-COV-2 COVID-19 2020-11-22 Completed Unive rsity of MODERNA VACCINE 00:00:00 [facility] SARS-COV-2 COVID-19 2020-11-22 Completed Unive rsity of MODERNA VACCINE 00:00:00 [facility] SARS-COV-2 COVID-19 2020-11-22 Completed Unive rsity of MODERNA VACCINE 00:00:00 [facility] Influenza Virus 2020-08-08 Completed Universit y of Vaccine 00:00:00 [facility] Influenza Virus 2020-08-08 Completed Universit y of Vaccine 00:00:00 [facility] Influenza Virus 2020-08-08 Completed Universit y of Vaccine 00:00:00 [facility] Vital Signs Vital Name Observation Time Observation Value Comments Source Systolic blood 2022-05-13 14:52:00 122 mm[Hg] Univer sity of pressure [place] [facility] Diastolic blood 2022-05-13 14:52:00 77 mm[Hg] Unive rsity of pressure [place] [facility] Heart rate 2022-05-13 14:52:00 98 /min Universi ty of [place] [facility] Body height 2022-05-13 14:52:00 154.9 cm Universi ty of [place] [facility] Body weight 2022-05-13 14:52:00 46.72 kg Universi ty of [place] [facility] BMI 2022-05-13 14:52:00 19.46 kg/m2 Universi ty of [place] [facility] Oxygen saturation in 2022-05-13 14:52:00 98 /min University of Arterial blood by [facility] Pulse oximetry Branch Systolic blood 2021-01-28 15:45:00 105 mm[Hg] Univer sity of pressure [place] [facility] Diastolic blood 2021-01-28 15:45:00 62 mm[Hg] Unive rsity of pressure [place] [facility] Heart rate 2021-01-28 15:45:00 104 /min Universi ty of [place] [facility] Body temperature 2021-01-28 12:50:00 36.61 Nora Univ ersity of [place] [facility] Oxygen saturation in 2021-01-28 12:50:00 96 /min University of Arterial blood by [facility] Pulse oximetry Branch Body weight 2021-01-28 04:00:00 51.393 kg Universi ty of [place] [facility] BMI 2021-01-28 04:00:00 18.29 kg/m2 Universi ty of [place] [facility] Respiratory rate 2021-01-28 00:00:00 16 /min Univ ersity of [place] [facility] Body height 2021-01-20 11:31:00 167.6 cm Universi ty of [place] [facility] Systolic blood 2021-01-28 15:45:00 105 mm[Hg] Univer sity of pressure [place] [facility] Diastolic blood 2021-01-28 15:45:00 62 mm[Hg] Unive rsity of pressure [place] [facility] Heart rate 2021-01-28 15:45:00 104 /min Universi ty of [place] [facility] Body temperature 2021-01-28 12:50:00 36.61 Nora Univ ersity of [place] [facility] Oxygen saturation in 2021-01-28 12:50:00 96 /min University of Arterial blood by [facility] Pulse oximetry [place] Body weight 2021-01-28 04:00:00 51.393 kg [facility] BMI 2021-01-28 04:00:00 18.29 kg/m2 [facility] Respiratory rate 2021-01-28 00:00:00 16 /min [facility] Body height 2021-01-20 11:31:00 167.6 cm [facility] Procedures Procedure Date / Time Performing Clinician Source Performed AUTHORIZATION FOR 2022-05-13 05:01:00 Doctor Unassigned, No [facility] RELEASE OF PHI Name [facility] POCT GLUCOSE (AUTOMATED) 2021-01-28 13:37:00 Obed Cabrera [facility] POCT GLUCOSE (AUTOMATED) 2021-01-28 01:37:00 Obed Cabrera [facility] POCT GLUCOSE (AUTOMATED) 2021-01-27 23:27:00 Obed Cabrera [facility] POCT GLUCOSE (AUTOMATED) 2021-01-27 18:43:00 Obed Cabrera [facility] PHOSPHORUS 2021-01-27 14:35:00 Ju Recio [facility] MAGNESIUM 2021-01-27 14:35:00 Ju Recioya [facility] BASIC METABOLIC PANEL 2021-01-27 14:35:00 Ju Recio [facility] (NA, K, CL, CO2, [facility] GLUCOSE, BUN, CREATININE, CA) POCT GLUCOSE (AUTOMATED) 2021-01-27 14:24:00 Obed Cabrera [facility] POCT GLUCOSE (AUTOMATED) 2021-01-27 01:11:00 Obed Cabrera [facility] PHOSPHORUS 2021-01-26 09:18:00 Ancelmo Acevedo [facility] MAGNESIUM 2021-01-26 09:18:00 [facility] BASIC METABOLIC PANEL 2021-01-26 09:18:00 Ancelmo Acevedo [facility] (NA, K, CL, CO2, Medical Branch GLUCOSE, BUN, CREATININE, CA) CBC WITH DIFF 2021-01-26 09:18:00 Ancelmo Acevedo [facility] BASIC METABOLIC PANEL 2021-01-26 05:24:00 Bairon [facility] (NA, K, CL, CO2, Medical Branch GLUCOSE, BUN, CREATININE, CA) CBC WITH DIFF 2021-01-26 05:24:00 Bairon [facility] POCT GLUCOSE (AUTOMATED) 2021-01-26 01:12:00 Obed Cabrera [facility] POCT GLUCOSE (AUTOMATED) 2021-01-25 21:52:00 Obed Cabrera [facility] POCT GLUCOSE (AUTOMATED) 2021-01-25 14:00:00 Obed Cabrera [facility] XR CHEST 2 VW 2021-01-25 10:25:24 Syed [facility] HB ECG ROUTINE & RHYTHM 2021-01-25 08:48:34 Bairon [facility] STRIP [facility] Branch MAGNESIUM 2021-01-25 08:32:00 [facility] METABOLIC PANEL 2021-01-25 08:32:00 [facility] (NA, K, CL, CO2, [facility] GLUCOSE, BUN, CREATININE, CA) POCT GLUCOSE (AUTOMATED) 2021-01-24 17:42:00 Obed Cabrera [facility] DIGOXIN 2021-01-24 15:09:00 Syed [facility] POCT GLUCOSE (AUTOMATED) 2021-01-24 13:53:00 Obed Cbarera [facility] BASIC METABOLIC PANEL 2021-01-24 10:06:00 Syed Swati [facility] (NA, K, CL, CO2, [facility] Branch GLUCOSE, BUN, CREATININE, CA) CBC WITH DIFF 2021-01-24 10:06:00 Syed [facility] POCT GLUCOSE (AUTOMATED) 2021-01-24 01:55:00 Obed Cabrera [facility] POCT GLUCOSE (AUTOMATED) 2021-01-23 23:33:00 Obed Cabrera [facility] POCT GLUCOSE (AUTOMATED) 2021-01-23 18:31:00 Obed Cabrera [facility] PHOSPHORUS 2021-01-23 09:22:00 Jenaro [facility] MAGNESIUM 2021-01-23 09:22:00 Jenaro [facility] BASIC METABOLIC PANEL 2021-01-23 09:22:00 Rock EasonFormerly [facility] (NA, K, CL, CO2, [facility] [place] GLUCOSE, BUN, CREATININE, CA) CBC WITHOUT DIFF 2021-01-23 09:22:00 Jenaro [facility] XR CHEST 1 VW 2021-01-23 08:15:00 Jenaro [facility] CBC WITHOUT DIFF 2021-01-23 01:47:00 Jenaro [facility] POTASSIUM SERUM 2021-01-22 22:00:00 Francisco Rolon [facility] PREPARE PACKED RBC 2021-01-22 17:04:53 Mil Yousif [facility] HB ECG ROUTINE & RHYTHM 2021-01-22 09:11:17 Deni Dale [facility] PHOSPHORUS 2021-01-22 09:04:00 Anatoliy Cardona [facility] MAGNESIUM 2021-01-22 09:04:00 Brendan [facility] BASIC METABOLIC PANEL 2021-01-22 09:04:00 Anatoliy Cardona [facility] (NA, K, CL, CO2, [facility] GLUCOSE, BUN, CREATININE, CA) CBC WITH DIFF 2021-01-22 09:04:00 Brendan Anatoliytariq Acosta [facility] XR CHEST 1 VW 2021-01-22 07:57:00 Brendan Anatoliytariq Acosta [facility] HB ECG ROUTINE & RHYTHM 2021-01-21 12:26:52 Yovana Gaston [facility] ABG+COOX+NA+K+GLU+CA2+ 2021-01-21 10:09:00 Benji Olvera [facility] PHOSPHORUS 2021-01-21 10:08:00 [facility] MAGNESIUM 2021-01-21 10:08:00 [facility] BASIC METABOLIC PANEL 2021-01-21 10:08:00 Benji Olvera [facility] (NA, K, CL, CO2, [facility] GLUCOSE, BUN, CREATININE, CA) CBC WITH DIFF 2021-01-21 10:08:00 [facility] PROTHROMBIN TIME / INR 2021-01-21 10:08:00 Benji Olvera [facility] XR CHEST 1 2021-01-21 07:24:00 [facility] CBC WITHOUT DIFF 2021-01-21 03:09:00 Red [facility] CBC WITHOUT DIFF 2021-01-21 01:25:00 Red [facility] ABG+COOX+NA+K+GLU+CA2+ 2021-01-21 01:25:00 Benji Olvera [facility] XR CHEST 1 2021-01-20 22:55:00 Red [facility] XR ABDOMEN 1 2021-01-20 22:49:00 [facility] XR CHEST 1 2021-01-20 22:49:00 [facility] ABG+COOX+NA+K+GLU+CA2+ 2021-01-20 22:44:00 Benji Olvera [facility] PHOSPHORUS 2021-01-20 22:42:00 [facility] MAGNESIUM 2021-01-20 22:42:00 [facility] BASIC METABOLIC PANEL 2021-01-20 22:42:00 Benji Olvera [facility] (NA, K, CL, CO2, [facility] GLUCOSE, BUN, CREATININE, CA) CBC WITH DIFF 2021-01-20 22:42:00 Benji Olvera [facility] MRSA / MSSA SCREEN BY 2021-01-20 22:42:00 Benji Olvera, [facility] PCR, AMELIA [facility] TRANSFUSE PLATELETS 2021-01-20 22:18:54 Samples, [facility] TRANSFUSE PLATELETS 2021-01-20 22:00:18 Samples, [facility] PREPARE PLATELETS 2021-01-20 21:54:03 Samples, [facility] CBC WITH DIFF 2021-01-20 21:47:[address] [facility] PROTHROMBIN TIME / INR 2021-01-20 21:47:17 Obed Cabrera [facility] ACTIVATED PARTIAL 2021-01-20 21:47:17 Obed Cabrera [facility] FIBRINOGEN 2021-01-20 21:47:[address] [facility] ABG+COOX+NA+K+GLU+CA2+ 2021-01-20 21:24:00 Obed Cabrera [facility] TRANSFUSE PACKED RBC 2021-01-20 21:12:39 Samples, [facility] TRANSFUSE PACKED RBC 2021-01-20 21:09:33 Samples, [facility]STA ACUTE CARE 2021-01-20 21:04:00 Obed Cabrera [facility] POCT ACT HIGH RANGE 2021-01-20 21:01:00 Obed Cabrera [facility] TRANSFUSE PACKED RBC 2021-01-20 20:25:19 Samples, [facility]STA ACUTE CARE 2021-01-20 20:21:00 Obed Cabrera [facility] TRANSFUSE PACKED RBC 2021-01-20 20:06:11 Samples, [facility] ACUTE CARE 2021-01-20 19:25:00 Obed Cabrera [facility] ARTERIAL [facility] ACUTE CARE 2021-01-20 18:59:00 Obed Cabrera [facility] POCT ACT HIGH RANGE 2021-01-20 18:52:00 Obed Cabrera [facility] PREPARE PACKED RBC 2021-01-20 18:06:15 Samples, [facility] ACUTE CARE 2021-01-20 17:29:00 Obed Cabrera [facility] PREPARE PACKED RBC 2021-01-20 17:16:[address] [facility] CORONARY ARTERY BYPASS 2021-01-20 16:32:00 Obed Cabrera [facility] GRAFT [facility] ENDOSCOPIC VEIN HARVEST 2021-01-20 16:32:00 Obed Cabrera [facility] CBC WITH DIFF 2021-01-20 13:27:00 Juliana Vinson [facility] ABORH CONFIRMATION 2021-01-20 13:27:00 Obed Cabrera [facility] HB ABO GROUPING 2021-01-20 12:20:00 Juliana Vinson [facility] BASIC METABOLIC PANEL 2021-01-20 12:17:00 Juliana Vinson [facility] (NA, K, CL, CO2, [facility] Branch GLUCOSE, BUN, CREATININE, CA) PROTHROMBIN TIME / INR 2021-01-20 12:17:00 Juliana Vinson [facility] URINALYSIS 2021-01-20 12:17:00 Juliana Vinson [facility] HB ECG ROUTINE & RHYTHM 2021-01-20 11:40:07 [facility] Planned Activity Planned Date Details Comments Source Future Scheduled 2022-01-20 Depression screening Uni versity of Test 00:00:00 (procedure) [code = [facility] arianna [id number]] Branch Future Scheduled 2003 Medicare Annual Universi ty of Test 00:00:00 Wellness Visit [facility] (procedure) [code = Branch [id number]] Future Scheduled 2003 PNEUMOCOCCAL University of Test 00:00:00 VACCINES 65+ (1 of 1 [facility] edical - PPSV23) [code = Branch PNEUMOCOCCAL VACCINES 65+ (1 of 1 - PPSV23)] Future Scheduled 1988 Zoster Recombinant Unive rsity of Test 00:00:00 Vaccine (SHINGRIX) [facility] ical (1 of 2) [code = Branch Zoster Recombinant Vaccine (SHINGRIX) (1 of 2)] Future Scheduled 1957 DTaP,Tdap,and Td Univers ity of Test 00:00:00 Vaccines (1 - Tdap) [facility] dical [code = Branch DTaP,Tdap,and Td Vaccines (1 - Tdap)] Future Scheduled ABG+COOX+NA+K+GLU+CA EVERY 4 HOURS Un iversity of Test 2+ (While Intubated) (START TIME [facility] edical [code = 84723] ADJUSTABLE) for Branch 24 Hours starting 01/20/2021 until 01/21/2021, 3 completed Encounters Start End Encounter Admission Attending Care Care Encounter Source Date/Time Date/Time Type Type Clinicians Facility Department ID 2021-07-25 Emergency [facility] [id number] Univers 22:08:24 itnancy [facility] 2021-07-25 Emergency [facility] [id number] Univers 17:56:31 itnancy [facility] 2021-07-25 Inpatient Sara [facility] SCT [id number] Univers 15:38:15 OBED lacey [facility] 2022-05-13 2022-05-13 Office Ivan [facility] 1.2.840.114 [id number] Univers 09:40:00 10:12:21 Visit [facility] 350.1.13.[address] [facility] 4.2.7.2.686 Royal as PABLO?BLEA [phone] Me dical [address] MEDICAL OFFICE BUILDING 2022-05-13 2022-05-13 Outpatient R MAURILIO CASTRO [facility] [id number] Univers 09:40:00 10:12:21 MAURILIO CASTRO [facility] 2022-05-13 2022-05-13 Outpatient MAURILIO GEE [facility] [id number] Univers 09:40:00 09:40:00 MAURILIO CASTRO [facility] 2022-05-13 2022-05-13 Orders Doctor AP 1.2.840.114 [id number] Univers 00:00:00 00:00:00 Only Unassigned, BERYL 350.1.13.10 ity of [place] [facility] 4.2.7.2.686 [place] as [phone] [address] 2022-05-05 2022-05-05 [facility] [id number] Univers 14:16:35 23:59:00 Encounter Maurilio Case SIVA 350.1.13.[address] [facility] 4.2.7.2.686 [facility] [id number] [place] 018994 [place] 2022-05-05 2022-05-05 Outpatient R MAURILIO CASTRO [facility] [id number] Univers 14:14:22 14:15:00 MAURILIO CASTRO [facility] 2022-05-05 2022-05-05 [facility] [id number] Univers 14:14:22 14:15:00 Encounter Maurilio PANIAGUA 350.1.13.[address] [facility] 4.2.7.2.686 [facility] [id number] [address] 2022-05-05 2022-05-05 Outpatient MAURILIO GEE [facility] [id number] Univers 00:00:00 00:00:00 MAURILIO CASTRO [facility] 2022-05-05 2022-05-05 Orders Doctor AP 1.2.840.114 [id number] Univers 00:00:00 00:00:00 Only Unassigned, BERYL 350.1.13.10 ity of [place] [facility] 4.2.7.2.686 [place] as [id number] [address] 2022-04-11 2022-04-11 [facility] 1.2.840.114 [id number] Univers 16:20:00 17:07:36 Visit Maurilio [facility] 350.1.13.10 ity of [place] 4.2.7.2.686 [place] as PABLO?BLEA [id number] De luz[address] MEDICAL OFFICE [facility] 2022-04-11 2022-04-11 Outpatient MAURILIO GEE [facility] [id number] Univers 16:20:00 17:07:36 MAURILIO CASTRO nancy [facility] 2022-04-11 2022-04-11 Outpatient R MAURILIO CASTRO [facility] [id number] Univers 16:20:00 16:20:00 MAURILIO CASTRO nancy [facility] 2022-03-31 2022-03-31 Outpatient MAURILIO GEE [facility] [id number] Univers 11:11:45 23:59:00 MAURILIO CASTRO nancy [facility] 2022-03-31 2022-03-31 [facility] [id number] Univers 11:11:45 23:59:00 Encounter Maurilio Case [place] 350.1.13.[address] [facility] 4.2.7.2.686 [place] [facility] [id number] [address] 2022-03-30 2022-03-30 Outpatient R NINA [facility] [id number] Univers 14:30:00 14:30:00 CAREN alvarado [facility] 2022-03-16 2022-03-16 [facility] 1.2.840.114 [id number] Univers 00:00:00 00:00:00 Secure Msg Maurilio [facility] 350.1.13.10 ity of [place] 4.2.7.2.686 Royal as PABLO?BLEA [phone] [address] MEDICAL OFFICE [facility] 2022-02-02 2022-02-02 Patient Jeffry [facility] 1.2.840.114 [id number] Univers 00:00:00 00:00:00 Secure Msg ise, SPECIALTY 350.1.13.10 ity of [facility] 4.2.7.2.686 [place] CENTER AT [phone] De luzbrigitte SAENZ [address] [place] [address] 2022-01-26 2022-01-26 Outpatient R CASPER [facility] [id number] Univers 13:00:00 13:00:00 KATHERINE lacey o f [facility] 2022-01-15 2022-01-15 [facility] 1.2.840.114 [id number] Univers 00:00:00 00:00:00 [facility] 350.1.13.10 ity of [place] 4.2.7.2.686 [place] as PABLO?BLEA [phone] De arianna SAVAGE [address] [place] [address] OFFICE [facility] 2022-01-11 2022-01-11 Outpatient R MAURILIO CASTRO [facility] [id number] Univers 11:20:00 12:15:14 MAURILIO CASTRO [facility] 2022-01-11 2022-01-11 Office [facility] 1.2.840.114 [id number] Univers 11:20:00 12:15:14 Visit [facility] 350.1.13.10 ity of [place] 4.2.7.2.686 [place] as PABLO?BLEA [phone] De arianna SAVAGE [address] [place] [address] OFFICE [facility] 2022-01-04 2022-01-04 Telephone [facility] 1.2.840.114 [id number] Univers 00:00:00 00:00:00 Maurilio Case [place] 350.1.13.10 ity of [place] 4.2.7.2.686 [place] PROF[place] [phone] De arianna LONNY [address] [place] [address] 2021-10-31 2021-10-31 Refill [facility] 1.2.840.114 [id number] Univers 00:00:00 00:00:00 ise, SPECIALTY 350.1.13.10 ity of [facility] 4.2.7.2.686 [place] CENTER AT [phone] De luzbrigitte SAENZ [address] [place] [address] 2021-10-20 2021-10-20 [facility] 1.2.840.114 [id number] Univers 00:00:00 00:00:00 ise, SPECIALTY 350.1.13.10 ity of [place] 4.2.7.2.686 [place] CENTER AT [phone] De arianna SAENZ [address] [place] [address] 2021-10-12 2021-10-12 Outpatient R MAURILIO CASTRO [facility] [id number] Univers 15:40:00 17:01:22 MAURILIO CASTRO itnancy [facility] 2021-10-12 2021-10-12 Office Ivan [facility] 1.2.840.114 [id number] Univers 15:40:00 17:01:22 Visit [facility] 350.1.13.10 ity of [place] 4.2.7.2.686 [place] as PABLO?BLEA [id number] De arianna GEORGES [address] [place] [address] OFFICE [facility] 2021-10-12 2021-10-12 Outpatient R MAURILIO CASTRO [facility] [id number] Univers 15:40:00 15:40:00 [facility] 2021-10-12 2021-10-12 Patient [facility] 1.2.840.114 [id number] Univers 00:00:00 00:00:00 Secure Msg ise, SPECIALTY 350.1.13.10 ity of [place] 4.2.7.2.686 [place] C[place] AT [phone] De arianna SAENZ [address] [place] [address] 2021-10-08 2021-10-08 Office [facility] 1.2.840.114 [id number] Univers 13:15:00 13:45:00 Visit ise, SPECIALTY 350.1.13.10 ity of [place] 4.2.7.2.686 [place] C[place] AT [phone] De arianna SAENZ [address] [place] [address] 2021-10-08 2021-10-08 Outpatient R [facility] [id number] Univers 13:15:00 13:15:00 ISE, ity of [place] [facility] 2021-10-08 2021-10-08 [facility] 1.2.840.114 [id number] Univers 00:00:00 00:00:00 ise, SPECIALTY 350.1.13.10 ity of [place] 4.2.7.2.686 [place] C[place] AT [phone] De luzbrigitte NOVOAY 072 [facility] 2021-10-06 2021-10-06 Office [facility] 1.2.840.114 [id number] Univers 15:20:00 15:56:08 Visit Katherine PANIAGUA 350.1.13.10 it[facility] 4.2.7.2.686 [place] [facility] [phone] De luzbrigitte NAL 059 [facility] 2021-10-06 2021-10-06 Outpatient R CASPER [facility] [id number] Univers 15:20:00 15:56:08 KATHERINE clarke [facility] 2021-10-06 2021-10-06 Outpatient R CASPER [facility] [id number] Univers 15:20:00 15:20:[address] [facility] deepthi clarke [facility] 2021-10-05 2021-10-05 Transition VadimJASPREET lucasMamadou 1.2.840.114 [id number] Univers 00:00:00 00:00:00 of Care Kade KINSEY 350.1.13.10 ity of [place] 4.2.7.2.686 [place] [phone] [facility] 403 Branch 2021-10-04 2021-10-04 Emergency X [facility] ERT [id number] Univers 08:52:00 15:11:00 REBEKAH lacey [facility] 2021-10-04 2021-10-04 Emergency [facility] 1.2.507.068 [id number] Univers 08:52:00 15:11:00 Rebekah PANIAGUA 350.1.13.10 ity of [place] 4.2.7.2.686 [place] [id number] [facility] 084 Branch 2021-10-04 2021-10-04 Emergency [facility] ERT [id number] Univers 08:52:00 15:11:00 REBEKAH lacey [facility] 2021-10-02 2021-10-03 Outpatient X PALLAVI [facility] FIDEL [id number] Univers 12:04:00 14:38:00 JASSLIVE lacey [facility] 2021-10-02 2021-10-03 Emergency Gerson Abbott [facility] 1.2.840. 114 [id number] Univers 12:04:00 14:38:00 Jass Urbina 350.1.13.10 [facility] 4.2.7.2.686 [place] [id number] [address] 2021-08-27 2021-08-27 Outpatient R DAVIS [facility] [id number] Univers 15:30:00 15:30:00 JACE lacey [facility] 2021-08-27 2021-08-27 Imm/Inj Nurse, Adc Pob Immunization [facility] 1.2.840.114 [id number] Univers 14:24:04 14:24:15 Visit Jace Lynch 350.1.13 .10 [facility] 4.2.7.2.686 [place] [facility] [phone] De dical NAL 421 [facility] 2021-04-06 2021-04-06 Outpatient R CASPER [facility] [id number] Univers 15:20:00 15:20:00 KATHERINE lacey o f [facility] 2021-04-06 2021-04-06 Office [facility] 1.2.840.114 [id number] Univers 14:51:05 15:19:27 Visit Katherine Paniagua 350.1.13.10 [facility] 4.2.7.2.686 [place] Profess[place] [phone] De dical nal 059 [facility] 2021-02-24 2021-02-24 Transition Karthikeyan Fierro 1.2.840.114 [id number] 00:00:00 00:00:00 of Care Kade Kinsey 350.1.13.10 [place] 4.2.7.2.686 [phone] [facility] 2021-02-24 2021-02-24 Transition Karthikeyan Fierro 1.2.840.114 [id number] Univers 00:00:00 00:00:00 of Care Kade Kinsey 350.1.13.10 ity of [place] 4.2.7.2.686 [place] [phone] [facility] 403 [place] 2021-02-23 2021-02-23 Urgent Provider, [facility] 1.2.046.534 [id number] 15:56:41 16:41:19 Care [facility] 350.1.13.10 Care [place] 4.2.7.2.686 Professio [phone] [place] [address] [address] 2021-02-23 2021-02-23 Urgent Provider, [facility] 1.2.840.114 [id number] Univers 15:56:41 16:41:19 Care Syed, [facility] 350.1.13.10 ity of [place] 4.2.7.2.686 [place] as Professio [phone] [address] Office Building [facility] 2021-02-23 2021-02-23 Outpatient R SYED [facility] [id number] Univers 16:00:00 16:00:[address] [facility] 2021-02-23 2021-02-23 Refjocelin [facility]UN[facility] 1.2.840.114 [id number] Univers 00:00:00 00:00:00 [facility] 350.1.13.10 it y of [place] 4.2.7.2.686 [place] Professio [phone] [address] Office Building [facility] 2021-02-20 2021-02-21 Emergency EbrahimKassidy [facility] 1.2.840.1 [id number] Univers 16:49:00 15:19:00 Aldo Breen 350.1.13.10 [place].2.686 [place] [id number] [facility] 081 [place] 2021-02-20 2021-02-21 Outpatient X JAMSHID [facility] [id number] Univers 16:49:00 15:19:00 ALDO lacey [facility] 2021-02-20 2021-02-21 Emergency Ebrahidali, Rania [facility] 1.2.840.1 [id number] 16:49:00 15:19:00 Aldo Breen 350.1.13.10 [place] 4.2.7.2.686 [place] [id number] [facility] 2021-02-11 2021-02-11 Office Deborah [facility] 1.2.840.114 [id number] Univers 12:54:32 13:57:50 Visit [facility] 350.1.13.10 ity of [facility] 4.2.7.2.686 [place] [phone] [facility] 185 Branch 2021-02-11 2021-02-11 Office [facility] 1.2.840.114 [id number] 12:54:32 13:57:50 Visit [facility] 350.1.13.10 CLINICS 4.2.7.2.686 [phone] [facility] 2021-02-11 2021-02-11 Outpatient R [facility] [id number] Univers 13:30:00 13:30:00 ity of [facility] 2021-02-01 2021-02-01 Transition Karthikeyan Fierro 1.2.840.114 [id number] Univers 00:00:00 00:00:00 of Care Kade Kinsey 350.1.13.10 ity of [place] 4.2.7.2.686 [place] [phone] [facility] 403 [address] 2021-01-30 2021-01-30 Emergency [facility] 1.2.840.114 [id number] Univers 15:25:00 17:12:00 Jumana Paniagua 350.1.13.10 ity of [place] 4.2.7.2.686 [place] [id number] [facility] 084 Branch 2021-01-29 2021-01-29 Transition Karthikeyan Fierro 1.2.840.114 [id number] Univers 00:00:00 00:00:00 of Care Kade Kinsey 350.1.13.10 ity of [place] 4.2.7.2.686 [place] [id number] [facility] 403 [address] 2021-01-20 2021-01-28 Inpatient R DEBORAH [facility] CALLIE [id number] Univers 06:23:00 12:20:00 OBED bricenancy [facility] 2021-01-20 2021-01-28 Hospital Sri Cabrera 1.2.840.114 [id number] Univers 06:23:00 12:20:00 Encounter Obed Lucas Beryl 350.1.13.10 ity of Hospital 4.2.7.2.686 [place] [phone] [facility] 089 Branch 2021-01-20 2021-01-20 Surgery Sri Cabrera 1.2.840.114 [id number] Univers 12:04:00 17:00:00 Obed Lucas Beryl 350.1.13.10 ity of [facility] 4.2.7.2.686 [place] [phone] [facility] 103 Branch 2021-01-20 2021-01-20 Orders Doctor DE SOUZA 1.2.840.114 [id number] Univers 00:00:00 00:00:00 Only Unassigned, BERYL 350.1.13.10 ity of [place] [facility] 4.2.7.2.686 [place] as [phone] [facility] 009 Branch 2021-01-19 2021-01-19 Outpatient Sara CABRERA [facility] [id number] Univers 15:00:00 15:00:00 OBED bricenancy [facility] 2021-01-19 2021-01-19 Laboratory Only, Adc Test [facility] 1.2.840. 114 [id number] Univers 14:23:46 14:38:46 Only Obed Cabrera Siva 350.1.13 .10 ity of [place] 4.2.7.2.686 [place] [id number] [facility] 353 Branch 2021-01-19 2021-01-19 Orders Doctor DE SOUZA 1.2.840.114 [id number] Univers 00:00:00 00:00:00 Only Unassigned, BERYL 350.1.13.10 ity of [facility] 4.2.7.2.686 [place] [phone] [facility] 009 Branch 2021-01-11 2021-01-11 Case AP Vinson 1.2.840.114 [id number] Univers 00:00:00 00:00:00 Management Juliana TESFAYE 350.1.13.10 ity of [facility] 4.2.7.2.686 [place] [id number] [facility] 037 Branch 2021-01-11 2021-01-11 Transition Karthikeyan Whiting 1.2.840.114 [id number] Univers 00:00:00 00:00:00 of Care Peggy Hsiehy 350.1.13.10 i ty [place] [phone] [facility] 403 Branch 2021-01-05 2021-01-09 [facility] 1.2.840. 114 [id number] Univers 20:49:00 20:10:00 Encounter Kuldip Sullivan 350.1.1 3.10 ity of [facility] 4.2.7.2.686 [place] [phone] [facility] 090 Branch 2021-01-08 2021-01-08 [facility] 1.2.608.597 [id number] Univers 12:25:00 13:40:00 Monty ICAL 350.1.13.10 it y of Counts Include 234 Beds At [facility] [employer] 4.2.7.2.686 [facility] as BLDG [id number] [facility] [address] 2021-01-05 2021-01-05 Emergency X [facility] ERT [id number] [facility] 20:49:00 20:49:00 MERYLLI ity of [facility] 2021-01-05 2021-01-05 Orders Doctor DE SOUZA [id number] Univers 00:00:00 00:00:00 Only Unassigned, BERYL 350.1.13.10 ity of [facility] 4.2.7.2.686 [facility] as [id number] [facility] [address] 2020-12-20 2020-12-20 Outpatient R LYUDMILA [facility] [id number] [facility] 12:35:00 12:35:00 [facility] 2020-11-22 2020-11-22 Outpatient Sara COREAS, [facility] [id number] [facility] 12:15:00 12:15:00 [facility] Results Test Description Test Time Test Comments Results Result Comments Source POCT GLUCOSE (AUTOMATED) 2021-01-28 13:37:42 Test Item Value Reference Range Interpretation Comme nts POCT GLU (test code = 4730970708) 124 mg/dL 70-110 H Notified Provider Lab Interpretation (test code = 83296-3) Abnormal [facility] GLUCOSE (AUTOMATED)2021-01-28 01:38:13 Test Item Value Reference Range Interpretation Comments POCT GLU (test code = 9926991749) 130 mg/dL 70-110 H Lab Interpretation (test code = Abnormal 39559-8) [facility] GLUCOSE (AUTOMATED)2021-01-27 23:28:05 Test Item Value Reference Range Interpretation Comments POCT GLU (test code = 95 mg/dL 70-110 Notifi ed Provider [id number]) Lab Interpretation (test Normal code = 23495-4) [facility] GLUCOSE (AUTOMATED)2021-01-27 18:51:48 Test Item Value Reference Range Interpretation Comments POCT GLU (test code = 8664911292) 95 mg/dL 70-110 Lab Interpretation (test code = Normal 31952-4) [facility] (NA, K, CL, CO2, GLUCOSE, BUN, CREATININE, CA)2021-01-27 15:12:56 Test Item Value Reference Range Interpretation Comments NA (test code = 138 mmol/L 135-145 7734612100) K (test code = 4.0 mmol/L 3.5-5.0 6135545041) CL (test code = 103 mmol/L 98-108 0105039092) CO2 TOTAL (test code = 29 mmol/L 23-31 3996693998) AGAP (test code = 6 2-16 1517838672) BUN (test code = 13 mg/dL 7-23 9793762682) GLUCOSE (test code = 135 mg/dL 70-110 H 7059633518) CREATININE (test code = 0.55 mg/dL 0.60-1.25 L 1151651115) CALCIUM (test code = 8.2 mg/dL 8.6-10.6 L 2502111168) eGFR (test code = 142.6 mL/min/1.73m2 4449209117) CARLIE (test code = CARLIE) Association of [...] tests). Lab Interpretation Abnormal (test code = 14952-6) [facility] 15:12:56 Test Item Value Reference Range Interpretation Comments MAGNESIUM (test code = 7496754573) 2.2 mg/dL 1.7-2.4 Lab Interpretation (test code = Normal 17313-2) [facility] 15:12:56 Test Item Value Reference Range Interpretation Comments PHOSPHORUS (test code = 0993297777) 2.2 mg/dL 2.5-5.0 L Lab Interpretation (test code = Abnormal 02795-2) [facility]-27 14:39:58 Test Item Value Reference Range Interpretation Comments POCT GLU (test code = 140 mg/dL 70-110 H Notifi ed Provider [id number]) Lab Interpretation (test Abnormal code = 47766-6) [facility]GLU[facility]CA2+2021-01-27 04:22:04 Test Item Value Reference Range Interpretation Comments PH (test code = 2) 7.40 7.35-7.45 PCO2 (test code = 30 See_Comment L [Automate d message] 5658207949) The system Yasm[employer] generated this result transmit thuy reference range : 35 - 45 mmHg. The reference range was not used to interpret this result as normal/abnormal . PO2 (test code = 332 See_Comment H [Automated message] 7565637766) The system [employer] generated this result transmit thuy reference range : 80 - 100 mmHg. The reference range was not used to interpret this result as normal/abnormal . HCO3 (test code = 18 See_Comment L [Automate d message] 3196327239) The system [employer] generated this result transmit thuy reference range : 22 - 26 mEq/L. The reference range was not used to interpret this result as normal/abnormal . BE (test code = -5.8 See_Comment L [Automated message] 2519814221) The system [employer] generated this result transmit thuy reference range : -3.0 - 3.0 mEq/ L. The reference r jaswinder was not used to interpret this result as normal/abnormal . THB (test code = 8.1 g/dL 13.5-18.0 LL 7347769033) %O2HB (test code = 99.5 % 94.0-99.0 H 5998705226) %COHB ART (test code = 0.0 % 0.0-1.5 6363615362) %METHB ART (test code = 0.1 % 0.4-1.5 L 3394833732) VOL%O2 ART (test code = 12.2 % 15.0-23.0 L 7649226277) NA (test code = 133 mmol/L 135-145 L 3916792854) K+ (test code = 4.4 mmol/L 3.5-5.0 4330037728) AC CA IONZ (test code = 5.10 mg/dL 4.50-5.30 5680490446) GLUCOSE (test code = 151 mg/dL 70-110 H 6240873538) Lab Interpretation Abnormal (test code = 26092-1) [facility] GLUCOSE (AUTOMATED)2021-01-27 01:12:43 Test Item Value Reference Range Interpretation Comments POCT GLU (test code = 7794687985) 133 mg/dL 70-110 H Lab Interpretation (test code = Abnormal 62776-1) [facility] 10:02:04 Test Item Value Reference Range Interpretation Comments MAGNESIUM (test code = 2068761250) 2.3 mg/dL 1.7-2.4 Lab Interpretation (test code = Normal 43275-1) [facility] 10:02:04 Test Item Value Reference Range Interpretation Comments PHOSPHORUS (test code = 4445708614) 1.3 mg/dL 2.5-5.0 L Lab Interpretation (test code = Abnormal 60045-7) [facility] (NA, K, CL, CO2, GLUCOSE, BUN, CREATININE, CA)2021-01-26 10:02:03 Test Item Value Reference Range Interpretation Comments NA (test code = 137 mmol/L 135-145 3910529081) K (test code = 3.8 mmol/L 3.5-5.0 4827786503) CL (test code = 102 mmol/L 98-108 3780001509) CO2 TOTAL (test code = 30 mmol/L 23-31 1320547091) AGAP (test code = 5 2-16 9258837353) BUN (test code = 16 mg/dL 7-23 5127516545) GLUCOSE (test code = 98 mg/dL 70-110 5284479784) CREATININE (test code = 0.51 mg/dL 0.60-1.25 L 4136090405) CALCIUM (test code = 7.9 mg/dL 8.6-10.6 L 0140639540) eGFR (test code = 155.6 mL/min/1.73m2 9638520471) CARLIE (test code = CARLIE) Association of [...] tests). Lab Interpretation Abnormal (test code = 95669-3) [facility] WITH [id number] 09:33:39 Test Item Value Reference Range Interpretation [...] (test code = 53.0 fL 38.5-51.6 H 20966-7) RDW-CV (test code = 15.0 % 12.1-15.4 788-0) PLT (test code = 196 See_Comment [Automated 777-3) message] The sy stem which generated this result transmitted reference range : 150 - 328 10*3/ ?L. The reference r jaswinder was not used to interpret this result as normal/abnormal . MPV (test code = 10.1 fL 9.8-13.0 45883-9) NRBC/100 WBC (test 0.0 See_Comment [Automat ed code = 4793574219) message] The system which generated this result transmitted reference range : 0.0 - 10.0 /100 WBCs. The refer ence range was not u sed to interpret th is result as normal/abnormal . NRBC x10^3 (test code <0.01 See_Comment [Auto mated = 9393225902) message] The s ystem which generated this result transmitted reference range : 10*3/?L. The reference range was not used to interpret this result as normal/abnormal . GRAN MAT (NEUT) % 70.2 % (test code = 770-8) IMM GRAN % (test code 0.60 % = 0900788665) LYMPH % (test code = 17.7 % 736-9) MONO % (test code = 9.6 % 5905-5) EOS % (test code = 1.4 % 713-8) BASO % (test code = 0.5 % 706-2) GRAN MAT x10^3(ANC) 4.39 10*3/uL 1.99-6.95 (test code = 5533847143) IMM GRAN x10^3 (test 0.04 10*3/uL 0.00-0.06 code = 3044275396) LYMPH x10^3 (test code 1.11 10*3/uL 1.09-3.23 = 731-0) MONO x10^3 (test code 0.60 10*3/uL 0.36-1.02 = 742-7) EOS x10^3 (test code = 0.09 10*3/uL 0.06-0.53 711-2) BASO x10^3 (test code 0.03 10*3/uL 0.01-0.09 = 704-7) Lab Interpretation Abnormal (test code = 94705-7) [facility] METABOLIC PANEL (NA, K, CL, CO2, GLUCOSE, BUN, CREATININE, CA)2021-01-26 06:12:45 Test Item Value Reference Range Interpretation Comments NA (test code = 137 mmol/L 135-145 0101028154) K (test code = 4.1 mmol/L 3.5-5.0 5905961157) CL (test code = 102 mmol/L 98-108 9665692836) CO2 TOTAL (test code = 31 mmol/L 23-31 3250651622) AGAP (test code = 4 2-16 8261376600) BUN (test code = 17 mg/dL 7-23 6061665419) GLUCOSE (test code = 140 mg/dL 70-110 H 8214502494) CREATININE (test code = 0.61 mg/dL 0.60-1.25 8572101446) CALCIUM (test code = 8.3 mg/dL 8.6-10.6 L 8354261992) eGFR (test code = 126.6 mL/min/1.73m2 7648902818) CARLIE (test code = CARLIE) Association of [...] tests). Lab Interpretation Abnormal (test code = 59368-3) [facility] WITH [id number] 05:39:20 Test Item Value Reference Range Interpretation Comments WBC (test code = 6.64 See_Comment [Automated 3358-2) message] The sy stem which generated this result transmitted reference range : 4.20 - 10.70 10*3/?L. The reference range was not used to interpret this result as normal/abnormal . RBC (test code = 2.85 See_Comment L [Automated 492-8) message] The sy stem which generated this [...] (test code = 52.5 fL 38.5-51.6 H 09974-5) RDW-CV (test code = 15.1 % 12.1-15.4 788-0) PLT (test code = 223 See_Comment [Automated 777-3) message] The sy stem which generated this result transmitted reference range : 150 - 328 10*3/ ?L. The reference r jaswinder was not used to interpret this result as normal/abnormal . MPV (test code = 9.8 fL 9.8-13.0 26124-0) NRBC/100 WBC (test 0.0 See_Comment [Automat ed code = 7320598795) message] The system which generated this result transmitted reference range : 0.0 - 10.0 /100 WBCs. The refer ence range was not u sed to interpret th is result as normal/abnormal . NRBC x10^3 (test code <0.01 See_Comment [Auto mated = 1590653226) message] The s ystem which generated this result transmitted reference range : 10*3/?L. The reference range was not used to interpret this result as normal/abnormal . GRAN MAT (NEUT) % 74.6 % (test code = 770-8) IMM GRAN % (test code 0.60 % = 1779513537) LYMPH % (test code = 15.2 % 736-9) MONO % (test code = 8.3 % 5905-5) EOS % (test code = 0.8 % 713-8) BASO % (test code = 0.5 % 706-2) GRAN MAT x10^3(ANC) 4.96 10*3/uL 1.99-6.95 (test code = 8513896831) IMM GRAN x10^3 (test 0.04 10*3/uL 0.00-0.06 code = 6351484545) LYMPH x10^3 (test code 1.01 10*3/uL 1.09-3.23 L = 731-0) MONO x10^3 (test code 0.55 10*3/uL 0.36-1.02 = 742-7) EOS x10^3 (test code = 0.05 10*3/uL 0.06-0.53 L 711-2) BASO x10^3 (test code 0.03 10*3/uL 0.01-0.09 = 704-7) Lab Interpretation Abnormal (test code = 16439-2) [facility] GLUCOSE (AUTOMATED)2021-01-26 01:14:28 Test Item Value Reference Range Interpretation Comments POCT GLU (test code = 8077416051) 131 mg/dL 70-110 H Lab Interpretation (test code = Abnormal 87487-4) [facility] GLUCOSE (AUTOMATED)2021-01-25 21:53:13 Test Item Value Reference Range Interpretation Comments POCT GLU (test code = 5691872866) 141 mg/dL 70-110 H Lab Interpretation (test code = Abnormal 77809-2) [facility] GLUCOSE (AUTOMATED)2021-01-25 14:01:24 Test Item Value Reference Range Interpretation Comments POCT GLU (test code = 7357439683) 104 mg/dL 70-110 Lab Interpretation (test code = Normal 79614-1) [facility] [id number] 13:48:12[facility], Radiant Results Inft User - 01/25/2021 8:49 AM CDTEXAM: XR CHEST 1 VWHISTORY: chest tube COMPARISON: None.FINDINGS:The chest tubes draining the pleural space on both sides are unchanged inposition. Similarly unchanged is the vascular access catheter introduced onthe right, the tip of which is atthe atriocaval junction. The heart andgreat vessels are normal, and the lungs are well expanded and c lear. Thevascular congestion and basilar edema noted previously have resolved. [facility] 2 Views - Upright ( PA, LAT) on POD # 3 2021-01-25 13:47:02 Interval removal of right central venous catheter. Small left pleural effusion. Preliminary Report Dictated by Resident: Adam Armstrong MD., have reviewed this study and agree withthe above report.[facility], Radiant Results Inft User - 01/25/2021 8:48 [...] reviewed this study and agree withthe above report.[facility] (NA, K, CL, CO2, GLUCOSE, BUN, CREATININE, CA)2021-01-25 09:00:49 Test Item Value Reference Range Interpretation Comments NA (test code = 138 mmol/L 135-145 9841223623) K (test code = 4.1 mmol/L 3.5-5.0 8123859608) CL (test code = 105 mmol/L 98-108 6780394997) CO2 TOTAL (test code = 31 mmol/L 23-31 4885373749) AGAP (test code = 2 2-16 6592906283) BUN (test code = 17 mg/dL 7-23 6576958623) GLUCOSE (test code = 92 mg/dL 70-110 1847814401) CREATININE (test code = 0.47 mg/dL 0.60-1.25 L 2562258407) CALCIUM (test code = 8.0 mg/dL 8.6-10.6 L 4203998344) eGFR (test code = 171.0 mL/min/1.73m2 8064852621) CARLIE (test code = CARLIE) Association of [...] tests). Lab Interpretation Abnormal (test code = 29560-1) [facility] 09:00:49 Test Item Value Reference Range Interpretation Comments MAGNESIUM (test code = 7045408635) 2.2 mg/dL 1.7-2.4 Lab Interpretation (test code = Normal 63441-8) [facility] GLUCOSE (AUTOMATED)2021-01-24 17:43:33 Test Item Value Reference Range Interpretation Comments POCT GLU (test code = 119 mg/dL 70-110 H Notifi ed Provider 1890647734) Lab Interpretation (test Abnormal code = 96574-2) [facility] 17:00:33 Test Item Value Reference Range Interpretation Comments DIGOXIN (test code = 2.2 ng/mL 0.8-1.6 H 5902562900) CARLIE (test code = CARLIE) Arrythmias: 1.5 - 2.0 ng/mLToxic Range: Greater than or equal to 2.4 ng/mL Lab Interpretation (test Abnormal code = 26035-9) [facility] GLUCOSE (AUTOMATED)2021-01-24 13:53:55 Test Item Value Reference Range Interpretation Comments POCT GLU (test code = 94 mg/dL 70-110 Notifi ed Provider 8934917826) Lab Interpretation (test Normal code = 02993-1) [facility] (NA, K, CL, CO2, GLUCOSE, BUN, CREATININE, CA) on POD # 10:55:15 Test Item Value Reference Range Interpretation Comments NA (test code = 139 mmol/L 135-145 3540678154) K (test code = 4.3 mmol/L 3.5-5.0 1022568528) CL (test code = 104 mmol/L 98-108 9077627840) CO2 TOTAL (test code = 32 mmol/L 23-31 H 5740622094) AGAP (test code = 3 2-16 2003648588) BUN (test code = 15 mg/dL 7-23 2556214745) GLUCOSE (test code = 96 mg/dL 70-110 7833230424) CREATININE (test code = 0.59 mg/dL 0.60-1.25 L 3827742989) CALCIUM (test code = 8.2 mg/dL 8.6-10.6 L 3009073405) eGFR (test code = 131.5 mL/min/1.73m2 1743224868) CARLIE (test code = CARLIE) Association of [...] tests). Lab Interpretation Abnormal (test code = 19436-2) [facility] with Differential on POD # 10:25:49 Test Item Value Reference Range Interpretation Comments WBC (test code = 6.96 See_Comment [Automated 1194-2) message] The sy stem which generated this [...] (test code = 54.5 fL 38.5-51.6 H 15812-4) RDW-CV (test code = 15.4 % 12.1-15.4 788-0) PLT (test code = 180 See_Comment [Automated 777-3) message] The sy stem which generated this result transmitted reference range : 150 - 328 10*3/ ?L. The reference r jaswinder was not used to interpret this result as normal/abnormal . MPV (test code = 10.2 fL 9.8-13.0 78669-2) NRBC/100 WBC (test 0.0 See_Comment [Automat ed code = 8477697697) message] The system which generated this result transmitted reference range : 0.0 - 10.0 /100 WBCs. The refer ence range was not u sed to interpret th is result as normal/abnormal . NRBC x10^3 (test code <0.01 See_Comment [Auto mated = 1465400740) message] The s ystem which generated this result transmitted reference range : 10*3/?L. The reference range was not used to interpret this result as normal/abnormal . GRAN MAT (NEUT) % 77.5 % (test code = 770-8) IMM GRAN % (test code 0.30 % = 9470865680) LYMPH % (test code = 11.1 % 736-9) MONO % (test code = 9.8 % 5905-5) EOS % (test code = 0.9 % 713-8) BASO % (test code = 0.4 % 706-2) GRAN MAT x10^3(ANC) 5.40 10*3/uL 1.99-6.95 (test code = 5384804449) IMM GRAN x10^3 (test <0.03 0.00-0.06 code = 3892558217) LYMPH x10^3 (test code 0.77 10*3/uL 1.09-3.23 L = 731-0) MONO x10^3 (test code 0.68 10*3/uL 0.36-1.02 = 742-7) EOS x10^3 (test code = 0.06 10*3/uL 0.06-0.53 711-2) BASO x10^3 (test code 0.03 10*3/uL 0.01-0.09 = 704-7) Lab Interpretation Abnormal (test code = 88942-1) [facility] GLUCOSE (AUTOMATED)2021-01-24 01:56:29 Test Item Value Reference Range Interpretation Comments POCT GLU (test code = 5562612595) 122 mg/dL 70-110 H Lab Interpretation (test code = Abnormal 61216-8) [facility] GLUCOSE (AUTOMATED)2021-01-23 23:34:50 Test Item Value Reference Range Interpretation Comments POCT GLU (test code = 114 mg/dL 70-110 H Notifi ed Provider [id number]) Lab Interpretation (test Abnormal code = 79495-2) [facility] GLUCOSE (AUTOMATED)2021-01-23 18:43:15 Test Item Value Reference Range Interpretation Comments POCT GLU (test code = 107 mg/dL 70-110 Notifi ed Provider 9063954186) Lab Interpretation (test Normal code = 62965-0) [facility] METABOLIC PANEL (NA, K, CL, CO2, GLUCOSE, BUN, CREATININE, CA)2021-01-23 11:27:35 Test Item Value Reference Range Interpretation Comments NA (test code = 135 mmol/L 135-145 6456463218) K (test code = 4.4 mmol/L 3.5-5.0 7374017003) CL (test code = 103 mmol/L 98-108 9337151668) CO2 TOTAL (test code = 29 mmol/L 23-31 7134324479) AGAP (test code = 3 2-16 0492030397) BUN (test code = 14 mg/dL 7-23 8221201314) GLUCOSE (test code = 95 mg/dL 70-110 2743353490) CREATININE (test code = 0.53 mg/dL 0.60-1.25 L 5991254071) CALCIUM (test code = 8.0 mg/dL 8.6-10.6 L 7750345680) eGFR (test code = 148.8 mL/min/1.73m2 4692710751) CARLIE (test code = CARLIE) Association of [...] tests). Lab Interpretation Abnormal (test code = 51493-9) [facility] 11:27:35 Test Item Value Reference Range Interpretation Comments MAGNESIUM (test code = 9413069301) 2.2 mg/dL 1.7-2.4 Lab Interpretation (test code = Normal 29170-9) [facility] 11:27:35 Test Item Value Reference Range Interpretation Comments PHOSPHORUS (test code = 3537480242) 1.8 mg/dL 2.5-5.0 L Lab Interpretation (test code = Abnormal 32100-3) [facility] WITHOUT [id number] 10:54:12 Test Item Value Reference Range Interpretation Comments WBC (test code = 6690-2) 6.16 See_Comment [A utomated message] The system Y[employer] generated this result transmit thuy reference range : 4.20 - 10.70 10*3/?L. The reference range was not used to interpret this result as normal/abnormal . RBC (test code = 789-8) 2.68 See_Comment L [Au tomated message] The system [employer] generated this result transmit thuy reference range [...] See_Comment L [Au tomated message] The system [employer] generated this result transmit tuhy reference range : 150 - 328 10*3/?L. The reference range was not used to interpret this result as normal/abnormal . MPV (test code = 10.7 fL 9.8-13.0 85356-2) RDW-CV (test code = 15.9 % 12.1-15.4 H 788-0) RDW-SD (test code = 55.1 fL 38.5-51.6 H 86841-1) NRBC x10^3 (test code = <0.01 See_Comment [Au tomated message] 4908465590) The system [employer] generated this result transmit thuy reference range : 10*3/?L. The reference range was not used to interpret this result as normal/abnormal . NRBC/100 WBC (test code 0.0 See_Comment [Au tomated message] = 2096515707) The system [facility] generated this result transmit thuy reference range : 0.0 - 10.0 /100 WBC s. The reference r jaswinder was not used to interpret this result as normal/abnormal . IPF % (test code = 7975228952) Lab Interpretation (test Abnormal code = 19557-6) [facility] WITHOUT [id number] 02:02:35 Test Item Value Reference Range Interpretation Comments WBC (test code = 6690-2) 7.13 See_Comment [A utomated message] The system [employer] generated this result transmit thuy reference range : 4.20 - 10.70 10*3/?L. The reference range was not used to interpret this result as normal/abnormal . RBC (test code = 789-8) 2.80 See_Comment L [Au tomated message] The system [employer] generated this result transmit thuy reference range [...] 164 See_Comment [Au tomated message] The system [employer] generated this result transmit thuy reference range : 150 - 328 10*3/?L. The reference range was not used to interpret this result as normal/abnormal . MPV (test code = 9.9 fL 9.8-13.0 00363-1) RDW-CV (test code = 16.3 % 12.1-15.4 H 788-0) RDW-SD (test code = 55.2 fL 38.5-51.6 H 03319-9) NRBC x10^3 (test code = <0.01 See_Comment [Au tomated message] 6436907265) The system [employer] generated this result transmit thuy reference range : 10*3/?L. The reference range was not used to interpret this result as normal/abnormal . NRBC/100 WBC (test code 0.0 See_Comment [Au tomated message] = 5117296056) The system [employer] generated this result transmit thuy reference range : 0.0 - 10.0 /100 WBC s. The reference r jaswinder was not used to interpret this result as normal/abnormal . IPF % (test code = 4355926447) Lab Interpretation (test Abnormal code = 92342-6) [facility] [id number] 22:27:44 Test Item Value Reference Range Interpretation Comments K (test code = 3601105010) 3.6 mmol/L 3.5-5.0 Lab Interpretation (test code = Normal 06389-6) [facility] RBC (in units), 1 Units 2021-01-22 17:04:53 Test Item Value Reference Range Interpretation Comments Cross Match Result Compatible (test code = 4409) ISBT Blood Type Code 6200 (test code = 954274) Unit Blood Type (test A Pos code = 4410) Unit Number (test [id number] code = 4411) Blood Expiration Date [id number] & Time (test code = 855387) Status Information Issued (test code = 4412) Product Red Blood Cells Identification (test code = 4413) Product Code (test [id number] Performed at [facility] code = 4414) Laboratory Services - [facility] Blood [address] [place] [address]Gnwy Free: [phone] A No. [id number] [facility] [id number] 13:45:17[facility], Radiant Results Inft User - 01/22/2021 8:46 AM CDTEXAM: XR CHEST 1 VWHISTORY: s/p CABG COMPARISON: None.FINDINGS:The heart and great vessels are normal except for a tortuous and prominentarteriosclerotic aorta. Chest tubes are unchanged on both sides and amediastinal drain is present in the midline. The Galloway-Dena catheter wasremoved. The tip of the right IJ line is deep in the superior vena cava.Mild basilar pulmonary congestion is present in the lung bases and a smallpleural effusion blunts the left costophrenic angle. The lungs are clearotherwise. [facility] WITH [id number] 10:02:06 Test Item Value Reference Range Interpretation [...] (test code = 53.7 fL 38.5-51.6 H 49275-5) RDW-CV (test code = 15.5 % 12.1-15.4 H 788-0) PLT (test code = 155 See_Comment [Automated 777-3) message] The sy stem which generated this result transmitted reference range : 150 - 328 10*3/ ?L. The reference r jaswinder was not used to interpret this result as normal/abnormal . MPV (test code = 10.6 fL 9.8-13.0 95348-6) NRBC/100 WBC (test 0.0 See_Comment [Automat ed code = 6664604517) message] The system which generated this result transmitted reference range : 0.0 - 10.0 /100 WBCs. The refer ence range was not u sed to interpret th is result as normal/abnormal . NRBC x10^3 (test code <0.01 See_Comment [Auto mated = 0997291799) message] The s ystem which generated this result transmitted reference range : 10*3/?L. The reference range was not used to interpret this result as normal/abnormal . GRAN MAT (NEUT) % 77.0 % (test code = 770-8) IMM GRAN % (test code 0.30 % = 0368385861) LYMPH % (test code = 9.7 % 736-9) MONO % (test code = 12.9 % 5905-5) EOS % (test code = 0.0 % 713-8) BASO % (test code = 0.1 % 706-2) GRAN MAT x10^3(ANC) 5.62 10*3/uL 1.99-6.95 (test code = 4378181195) IMM GRAN x10^3 (test <0.03 0.00-0.06 code = 1691970942) LYMPH x10^3 (test code 0.71 10*3/uL 1.09-3.23 L = 731-0) MONO x10^3 (test code 0.94 10*3/uL 0.36-1.02 = 742-7) EOS x10^3 (test code = <0.03 0.06-0.53 L 711-2) BASO x10^3 (test code <0.03 0.01-0.09 = 704-7) Lab Interpretation Abnormal (test code = 10614-2) [facility] 09[facility]30 Test Item Value Reference Range Interpretation Comments MAGNESIUM (test code = 5377144285) 2.4 mg/dL 1.7-2.4 Lab Interpretation (test code = Normal 36132-8) [facility] 09:51:30 Test Item Value Reference Range Interpretation Comments PHOSPHORUS (test code = 7664930543) 1.9 mg/dL 2.5-5.0 L Lab Interpretation (test code = Abnormal 28110-3) [facility]BAS[facility]OLIC PANEL (NA, K, CL, CO2, GLUCOSE, BUN, CREATININE, CA)2021-01-22 09:51:29 Test Item Value Reference Range Interpretation Comments NA (test code = 135 mmol/L 135-145 2470812113) K (test code = 4.3 mmol/L 3.5-5.0 5898537172) CL (test code = 105 mmol/L 98-108 3208304513) CO2 TOTAL (test code = 28 mmol/L 23-31 8472488403) AGAP (test code = 2 2-16 5662487531) BUN (test code = 11 mg/dL 7-23 3301327657) GLUCOSE (test code = 105 mg/dL 70-110 5892840622) CREATININE (test code = 0.50 mg/dL 0.60-1.25 L 0763538853) CALCIUM (test code = 8.0 mg/dL 8.6-10.6 L 2354803312) eGFR (test code = 159.2 mL/min/1.73m2 8527274375) CARLIE (test code = CARLIE) Association of [...] tests). Lab Interpretation Abnormal (test code = 38230-5) [facility] CenterMR[facility] / MSSA Screen by Amelia GARCIAUpyxa2755-74-08 17:21:29 Test Item Value Reference Range Interpretation Comments MSSA Screen by Amelia GARCIA (test code Negative Negative = 51563-0) MRSA/MSSA Positive? (test code = No No 7211055518) Lab Interpretation (test code = Normal 42472-1) [facility] CenterAb[facility] 1 [id number] 16:22:12 The gastric tube is not visualized in the abdomen as it is turns superiorlyin the upper thoracic esophagus. Multiple additional lines and tubes as outlined above. Preliminary Report Dictated by Resident: Delmer Bhakta MD., have reviewed this study and agree with the abovereport.[facility], Radiant Results Inft User - 01/21/2021 11:23 AM CDTEXAM: XR ABDOMEN 1 VWHISTORY: OGT placement COMPARISON: noneFINDINGS:The gastric tube is not visualized on the abdominal radiograph. Theconcurrent chest radiograph was reviewed for further evaluation of thegastric tube which is seen taking a 180 degree turn in the mid thoracicesophagus before extending superiorly beyond the zebas-mq-jjbn.The Galloway-Dena catheter tip projects over the main pulmonary artery. Thecentral venous catheter tip projects over the superior cavoatrial junction.Bibasilar pleural drains identified with an additional drain projectingover the cardiac silhouette. The mediastinal drain extends superiorlybeyond the lvocx-bb-ztac.The upper abdominal bowel gas pattern demonstrates a nonobstructivepattern. No acute osseous abnormalities. Levocurvature of the lumbar spine.Multilevel spondylotic changes.IMPRESSIONThe gastric tube is not visualized in the abdomen as it is turns superiorlyin the upper thoracic esophagus.Multiple additional lines and tubes as outlined above.Preliminary Report Dictated by Resident: Delmer Villegas MD., have reviewed this study and agree with the abovereport.[facility] 1 [id number] 13:32:40 [facility], Radiant Results Inft User - 01/21/2021 8:33 AM CDTEXAM: XR CHEST 1 VWHISTORY: s/p open heart surgery COMPARISON: None.FINDINGS:The chest tubes on both sides, the mediastinal drain and the Galloway-Ganzcatheter are unchanged in position. The endotracheal and nasogastric tubeswere removed. The tip of the right IJ line is deep in the superior venacava. The heart and great vessels are normal. The hilarvascular congestionis present on both sides but does not extend peripherally, suggesting thepossibility of pulmonary arterial hypertension. The lungs are well expandedand clear.[facility] CenterXR [facility] 1 VW 2021-01-21 13:16:03[facility], Radiant Results Inft User - 01/21/2021 8:17 AM CDTEXAM: XR CHEST 1 VWHISTORY: ETT placement Advanced ETT 1 cm, please confirm placementCOMPARISON: None.FINDINGS:The tip of the endotracheal tube is at the level of the clavicles and thechest tubes on both sides and mediastinal drain are unchanged in position.The tip of the Galloway-Dena catheter is in the outflow tract of the rightventricle or just enters the main pulmonary artery, and the tip of theright IJ line is in the superior vena cava. The heart and great vessels arenormal except for prominence of the thoracic aorta the lungs are wellexpanded and clear except for minor basilar subsegmental atelectasis on theright.[facility] CenterPhosphorus2021-04-29 11:09:28 Test Item Value Reference Range Interpretation Comments PHOSPHORUS (test code = 9557392403) 3.8 mg/dL 2.5-5.0 Lab Interpretation (test code = Normal 20372-0) [facility] CenterBasic Metabolic Panel (NA, K, CL, CO2, GLUCOSE, BUN, CREATININE, CA)2021-01-21 11:09:27 Test Item Value Reference Range Interpretation Comments NA (test code = 136 mmol/L 135-145 9795427321) K (test code = 4.3 mmol/L 3.5-5.0 6466175526) CL (test code = 106 mmol/L 98-108 9704778052) CO2 TOTAL (test code = 24 mmol/L 23-31 2691261421) AGAP (test code = 6 2-16 7853960894) BUN (test code = 8 mg/dL 7-23 6504863349) GLUCOSE (test code = 147 mg/dL 70-110 H 0868670221) CREATININE (test code = 0.49 mg/dL 0.60-1.25 L 3162634211) CALCIUM (test code = 7.6 mg/dL 8.6-10.6 L 4742618466) eGFR (test code = 162.9 mL/min/1.73m2 0543325157) CARLIE (test code = CARLIE) Association of [...] tests). Lab Interpretation Abnormal (test code = 48871-1) [facility] CenterMagnesium2021-04-29 11:09:27 Test Item Value Reference Range Interpretation Comments MAGNESIUM (test code = 5926728670) 1.9 mg/dL 1.7-2.4 Lab Interpretation (test code = Normal 43960-1) [facility] with [id number] 11:02:38 Test Item Value Reference Range Interpretation Comments WBC (test code = 7.48 See_Comment [Automated 6690-2) message] The sy stem which generated this result transmitted reference range : 4.20 - 10.70 10*3/?L. The reference range was not used to interpret this result as normal/abnormal . RBC (test code = 2.48 See_Comment L [Automated 189-8) message] The sy stem which generated this [...] (test code = 53.3 fL 38.5-51.6 H 54615-5) RDW-CV (test code = 15.9 % 12.1-15.4 H 788-0) PLT (test code = 187 See_Comment [Automated 777-3) message] The sy stem which generated this result transmitted reference range : 150 - 328 10*3/ ?L. The reference r jaswinder was not used to interpret this result as normal/abnormal . MPV (test code = 9.8 fL 9.8-13.0 74332-1) NRBC/100 WBC (test 0.0 See_Comment [Automat ed code = 5553989612) message] The system which generated this result transmitted reference range : 0.0 - 10.0 /100 WBCs. The refer ence range was not u sed to interpret th is result as normal/abnormal . NRBC x10^3 (test code <0.01 See_Comment [Auto mated = 1926125950) message] The s ystem which generated this result transmitted reference range : 10*3/?L. The reference range was not used to interpret this result as normal/abnormal . GRAN MAT (NEUT) % 86.1 % (test code = 770-8) IMM GRAN % (test code 0.10 % = 9790303107) LYMPH % (test code = 4.4 % 736-9) MONO % (test code = 9.4 % 5905-5) EOS % (test code = 0.0 % 713-8) BASO % (test code = 0.0 % 706-2) GRAN MAT x10^3(ANC) 6.44 10*3/uL 1.99-6.95 (test code = 2304801856) IMM GRAN x10^3 (test <0.03 0.00-0.06 code = 3471348744) LYMPH x10^3 (test code 0.33 10*3/uL 1.09-3.23 L = 731-0) MONO x10^3 (test code 0.70 10*3/uL 0.36-1.02 = 742-7) EOS x10^3 (test code = <0.03 0.06-0.53 L 711-2) BASO x10^3 (test code <0.03 0.01-0.09 = 704-7) BASO STIPPLING (test Present A code = 703-9) BANDS (test code = Increased A 7996241139) Lab Interpretation Abnormal (test code = 89607-5) [facility] CenterProthrombin Time / [id number] 10:45:25 Test Item Value Reference Range Interpretation Comments PROTIME PATIENT (test 13.9 See_Comment H [Auto mated message] code = 5964-2) The system [facility] generated this result transmitted ref erence range: 10.1 - 1 2.6 Seconds. The reference range was not used to int erpret this result as normal/abnormal . INR (test code = 6301-6) 1.2 Nor mal INR <1.1; Warfarin Therap eutic range 2.0 to 3. 0 or 2.5 to 3.5, dep ending upon the indica tions. Lab Interpretation (test Abnormal code = 96576-4) [facility] CenterABG+COOX+NA+K+GLU+CA2+ (While Intubated) 2021-01-21 10:16:45 Test Item Value Reference Range Interpretation Comments PH (test code = 2) 7.43 7.35-7.45 PCO2 (test code = 38 See_Comment [Automate d message] 7500893329) The system [employer] generated this result transmit thuy reference range : 35 - 45 mmHg. The reference range was not used to interpret this result as normal/abnormal . PO2 (test code = 152 See_Comment H [Automated message] 4281570211) The system [employer] generated this result transmit thuy reference range : 80 - 100 mmHg. The reference range was not used to interpret this result as normal/abnormal . HCO3 (test code = 24 See_Comment [Automate d message] 2299488920) The system [employer] generated this result transmit thuy reference range : 22 - 26 mEq/L. The reference range was not used to interpret this result as normal/abnormal . BE (test code = -0.1 See_Comment [Automated message] 1452246100) The system [employer] generated this result transmit thuy reference range : -3.0 - 3.0 mEq/ L. The reference r jaswinder was not used to interpret this result as normal/abnormal . THB (test code = 8.4 g/dL 13.5-18.0 L 7957861708) %O2HB (test code = 97.8 % 94.0-99.0 9367070821) %COHB ART (test code = 1.0 % 0.0-1.5 6030248281) %METHB ART (test code = 0.2 % 0.4-1.5 L 7665002306) VOL%O2 ART (test code = 11.9 % 15.0-23.0 L 3462801442) NA (test code = 133 mmol/L 135-145 L 0752293015) K+ (test code = 4.3 mmol/L 3.5-5.0 5930560261) AC CA IONZ (test code = 4.40 mg/dL 4.50-5.30 L 3902099324) GLUCOSE (test code = 157 mg/dL 70-110 H 0253149888) Lab Interpretation Abnormal (test code = 25386-0) [facility] WITHOUT [id number] 03:17:28 Test Item Value Reference Range Interpretation Comments WBC (test code = 6690-2) 7.84 See_Comment [A utomated message] The system [employer] generated this result transmit thuy reference range : 4.20 - 10.70 10*3/?L. The reference range was not used to interpret this result as normal/abnormal . RBC (test code = 789-8) 2.51 See_Comment L [Au tomated message] The system [employer] generated this result transmit thuy reference range [...] 183 See_Comment [Au tomated message] The system [employer] generated this result transmit thuy reference range : 150 - 328 10*3/?L. The reference range was not used to interpret this result as normal/abnormal . MPV (test code = 9.6 fL 9.8-13.0 L 99311-0) RDW-CV (test code = 15.6 % 12.1-15.4 H 788-0) RDW-SD (test code = 53.7 fL 38.5-51.6 H 16768-4) NRBC x10^3 (test code = <0.01 See_Comment [Au tomated message] 4485984858) The system [facility] generated this result transmit thuy reference range : 10*3/?L. The reference range was not used to interpret this result as normal/abnormal . NRBC/100 WBC (test code 0.0 See_Comment [Au tomated message] = 9196556719) The system [facility] generated this result transmit thuy reference range : 0.0 - 10.0 /100 WBC s. The reference r jaswinder was not used to interpret this result as normal/abnormal . IPF % (test code = 4740543468) Lab Interpretation (test Abnormal code = 30017-6) [facility] WITHOUT [id number] 01:41:33 Test Item Value Reference Range Interpretation Comments WBC (test code = 6690-2) 6.89 See_Comment [A utomated message] The system [facility] generated this result transmit thuy reference range : 4.20 - 10.70 10*3/?L. The reference range was not used to interpret this result as normal/abnormal . RBC (test code = 789-8) 2.44 See_Comment L [Au tomated message] The system [facility] generated this result transmit thuy [...] 174 See_Comment [Au tomated message] The system [facility] generated this result transmit thuy reference range : 150 - 328 10*3/?L. The reference range was not used to interpret this result as normal/abnormal . MPV (test code = 9.5 fL 9.8-13.0 L 05397-4) RDW-CV (test code = 15.5 % 12.1-15.4 H 788-0) RDW-SD (test code = 53.7 fL 38.5-51.6 H 42248-8) NRBC x10^3 (test code = <0.01 See_Comment [Au tomated message] 5219811909) The system [facility] generated this result transmit thuy reference range : 10*3/?L. The reference range was not used to interpret this result as normal/abnormal . NRBC/100 WBC (test code 0.0 See_Comment [Au tomated message] = 9841582093) The system [facility] generated this result transmit thuy reference range : 0.0 - 10.0 /100 WBC s. The reference r jaswinder was not used to interpret this result as normal/abnormal . IPF % (test code = 9719306631) Lab Interpretation (test Abnormal code = 54016-9) [facility]AB[facility]COOX+NA+K+GLU+CA2+ (While Intubated) 2021-01-21 01:34:15 Test Item Value Reference Range Interpretation Comments PH (test code = 2) 7.39 7.35-7.45 PCO2 (test code = 39 See_Comment [Automate d message] 0468598250) The system [facility] generated this result transmit thuy reference range : 35 - 45 mmHg. The reference range was not used to interpret this result as normal/abnormal . PO2 (test code = 158 See_Comment H [Automated message] 3455770649) The system [facility] generated this result transmit thuy reference range : 80 - 100 mmHg. The reference range was not used to interpret this result as normal/abnormal . HCO3 (test code = 23 See_Comment [Automate d message] 6744493454) The system [employer] generated this result transmit thuy reference range : 22 - 26 mEq/L. The reference range was not used to interpret this result as normal/abnormal . BE (test code = -2.2 See_Comment [Automated message] 6161514933) The system [employer] generated this result transmit thuy reference range : -3.0 - 3.0 mEq/ L. The reference r jaswinder was not used to interpret this result as normal/abnormal . THB (test code = 8.0 g/dL 13.5-18.0 LL 3874330102) %O2HB (test code = 98.1 % 94.0-99.0 9122967878) %COHB ART (test code = 0.6 % 0.0-1.5 0152149871) %METHB ART (test code = 0.2 % 0.4-1.5 L 2502751113) VOL%O2 ART (test code = 11.4 % 15.0-23.0 L 9210845124) NA (test code = 136 mmol/L 135-145 6767267839) K+ (test code = 3.9 mmol/L 3.5-5.0 7666392116) AC CA IONZ (test code = 4.20 mg/dL 4.50-5.30 L 1591481624) GLUCOSE (test code = 129 mg/dL 70-110 H 4756138168) Lab Interpretation Abnormal (test code = 62551-8) [facility] 1 View (on admission)2021-01-21 00:29:18 Impression: Endotracheal tube is in appropriate position. Possible orogastric tube or nasogastric tube is looped upon itselfoverlapping the upper and mid esophagus, the distal aspect overlaps theneck and the tip is off the film; repositioning is recommended. Right internal jugular vein Galloway-Dena catheter and sheath, the tip of thecatheter [...] off the film; repositioning is recommended.Right internal jugularvein Galloway-Dena catheter and sheath, the tip of thecatheter overlaps the main pulmonary artery. Bilateral and central chesttubes.Borderline cardiomegaly. Intact median sternotomy wires. No pneumothorax orsignificant pleural effusion. Minimal left lung base subsegmentalatelectasis.IMPRESSIONImpression: Endotracheal tube is in appropriate position. Possible orogastric tube or nasogastric tube is looped u [place] itselfoverlapping the upper and mid esophagus, the distal aspect overlaps theneck and the tip isoff the film; repositioning is recommended.Right internal jugular vein Galloway-Dena catheter and sheath, the tip of thecatheter overlaps the main pulmonary artery. Bilateral and central chest tubes.No pneumothorax. Minimal left lung base subsegmental atelectasis.RL: 460End of report.Electronically signedby Andi Goins MD at 01/20/2021 7:29 [facility]UnD[facility] with [id number] 00:09:19 Test Item Value Reference Range Interpretation Comments WBC (test code = 6.15 See_Comment [Automated 4815-2) message] The sy stem which generated this result transmitted reference range : 4.20 - 10.70 10*3/?L. The reference range was not used to interpret this result as normal/abnormal . RBC (test code = 2.58 See_Comment L [Automated 327-8) message] The sy stem which generated this [...] (test code = 51.8 fL 38.5-51.6 H 53088-9) RDW-CV (test code = 15.1 % 12.1-15.4 788-0) PLT (test code = 160 See_Comment [Automated 777-3) message] The sy stem which generated this result transmitted reference range : 150 - 328 10*3/ ?L. The reference r jaswinder was not used to interpret this result as normal/abnormal . MPV (test code = 9.8 fL 9.8-13.0 94631-5) NRBC/100 WBC (test 0.0 See_Comment [Automat ed code = 4380843818) message] The system which generated this result transmitted reference range : 0.0 - 10.0 /100 WBCs. The refer ence range was not u sed to interpret th is result as normal/abnormal . NRBC x10^3 (test code <0.01 See_Comment [Auto mated = 6361586868) message] The s ystem which generated this result transmitted reference range : 10*3/?L. The reference range was not used to interpret this result as normal/abnormal . GRAN MAT (NEUT) % 85.5 % (test code = 770-8) IMM GRAN % (test code 0.50 % = 6604139089) LYMPH % (test code = 7.8 % 736-9) MONO % (test code = 5.9 % 5905-5) EOS % (test code = 0.0 % 713-8) BASO % (test code = 0.3 % 706-2) GRAN MAT x10^3(ANC) 5.26 10*3/uL 1.99-6.95 (test code = 0934056061) IMM GRAN x10^3 (test 0.03 10*3/uL 0.00-0.06 code = 7308922126) LYMPH x10^3 (test code 0.48 10*3/uL 1.09-3.23 L = 731-0) MONO x10^3 (test code 0.36 10*3/uL 0.36-1.02 = 742-7) EOS x10^3 (test code = <0.03 0.06-0.53 L 711-2) BASO x10^3 (test code <0.03 0.01-0.09 = 704-7) Lab Interpretation Abnormal (test code = 26682-9) [facility] 23:41:31 Test Item Value Reference Range Interpretation Comments PHOSPHORUS (test code = 5434434820) 2.1 mg/dL 2.5-5.0 L Lab Interpretation (test code = Abnormal 09076-5) [facility] (NA, K, CL, CO2, GLUCOSE, BUN, CREATININE, CA)2021-01-20 23:41:30 Test Item Value Reference Range Interpretation Comments NA (test code = 137 mmol/L 135-145 4386135260) K (test code = 3.9 mmol/L 3.5-5.0 3905442552) CL (test code = 108 mmol/L 98-108 0796865783) CO2 TOTAL (test code = 19 mmol/L 23-31 L 0379519187) AGAP (test code = 10 2-16 8319515854) BUN (test code = 7 mg/dL 7-23 9058955886) GLUCOSE (test code = 123 mg/dL 70-110 H 8478348355) CREATININE (test code = 0.43 mg/dL 0.60-1.25 L 7546272719) CALCIUM (test code = 7.2 mg/dL 8.6-10.6 L 5272579088) eGFR (test code = 189.5 mL/min/1.73m2 8073944682) CARLIE (test code = CARLIE) Association of [...] tests). Lab Interpretation Abnormal (test code = 57526-2) [facility] CenterMagnesium2021-04-28 23:41:30 Test Item Value Reference Range Interpretation Comments MAGNESIUM (test code = 4306583448) 2.3 mg/dL 1.7-2.4 Lab Interpretation (test code = Normal 24136-0) [facility] CenterCB WITH [id number] 22:53:41 Test Item Value Reference Range Interpretation Comments WBC (test code = 6.84 See_Comment [Automated 6690-2) message] The sy stem which generated this result transmitted reference range : 4.20 - 10.70 10*3/?L. The reference range was not used to interpret this result as normal/abnormal . RBC (test code = 3.10 See_Comment L [Automated 099-8) message] The sy stem which generated this [...] RDW-SD (test code = 50.9 fL 38.5-51.6 51785-8) RDW-CV (test code = 14.8 % 12.1-15.4 788-0) PLT (test code = 68 See_Comment L [Automated 777-3) message] The sy stem which generated this result transmitted reference range : 150 - 328 10*3/ ?L. The reference r jaswinder was not used to interpret this result as normal/abnormal . MPV (test code = 9.7 fL 9.8-13.0 L 46971-0) IPF % (test code = 2.5 % 1.2-10.7 Platelet count 9557057386) measured by fluorescence method. NRBC/100 WBC (test 0.0 See_Comment [Automat ed code = 5916220389) message] The system which generated this result transmitted reference range : 0.0 - 10.0 /100 WBCs. The refer ence range was not u sed to interpret th is result as normal/abnormal . NRBC x10^3 (test code <0.01 See_Comment [Auto mated = 2579903596) message] The s ystem which generated this result transmitted reference range : 10*3/?L. The reference range was not used to interpret this result as normal/abnormal . GRAN MAT (NEUT) % 81.7 % (test code = 770-8) IMM GRAN % (test code 0.70 % = 9637173944) LYMPH % (test code = 11.3 % 736-9) MONO % (test code = 5.7 % 5905-5) EOS % (test code = 0.3 % 713-8) BASO % (test code = 0.3 % 706-2) GRAN MAT x10^3(ANC) 5.59 10*3/uL 1.99-6.95 (test code = 9158463337) IMM GRAN x10^3 (test 0.05 10*3/uL 0.00-0.06 code = 4946328208) LYMPH x10^3 (test code 0.77 10*3/uL 1.09-3.23 [...] . Lab Interpretation Abnormal (test code = 45225-4) [facility]AB[facility]+NA+K+GLU+CA2+ (While Intubated) 2021-01-20 22:49:48 Test Item Value Reference Range Interpretation Comments PH (test code = 2) 7.48 7.35-7.45 H PCO2 (test code = 26 See_Comment L [Automate d message] 4043792266) The system [employer] generated this result transmit thuy reference range : 35 - 45 mmHg. The reference range was not used to interpret this result as normal/abnormal . PO2 (test code = 291 See_Comment H [Automated message] 8459316186) The system [employer] generated this result transmit thuy reference range : 80 - 100 mmHg. The reference range was not used to interpret this result as normal/abnormal . HCO3 (test code = 20 See_Comment L [Automate d message] 2373462413) The system [employer] generated this result transmit thuy reference range : 22 - 26 mEq/L. The reference range was not used to interpret this result as normal/abnormal . BE (test code = -3.9 See_Comment L [Automated message] 6705944712) The system [employer] generated this result transmit thuy reference range : -3.0 - 3.0 mEq/ L. The reference r jaswinder was not used to interpret this result as normal/abnormal . THB (test code = 8.5 g/dL 13.5-18.0 L 1013601403) %O2HB (test code = 99.0 % 94.0-99.0 9188144985) %COHB ART (test code = 0.3 % 0.0-1.5 6009562168) %METHB ART (test code = 0.3 % 0.4-1.5 L 3814588871) VOL%O2 ART (test code = 12.6 % 15.0-23.0 L 3932391841) NA (test code = 138 mmol/L 135-145 7626552072) K+ (test code = 4.0 mmol/L 3.5-5.0 3177236539) AC CA IONZ (test code = 4.00 mg/dL 4.50-5.30 L 1238592686) GLUCOSE (test code = 121 mg/dL 70-110 H 3059059773) Lab Interpretation Abnormal (test code = 31146-4) [facility] CenterFIB[facility]2021[facility] 22:31:20 Test Item Value Reference Range Interpretation Comments Fibrinogen (test code = 6707663696) 140 mg/dL 167-453 L Lab Interpretation (test code = Abnormal 01462-6) [facility] CenterPROTHROMBIN TIME / [id number] 22:31:15 Test Item Value Reference Range Interpretation Comments PROTIME PATIENT (test 20.8 See_Comment H [Auto mated message] code = 5964-2) The system [employer] generated this result transmitted ref erence range: 10.1 - 1 2.6 Seconds. The reference range was not used to int erpret this result as normal/abnormal . INR (test code = 6301-6) 1.8 Nor mal INR <1.1; Warfarin Therap eutic range 2.0 to 3. 0 or 2.5 to 3.5, dep ending upon the indica tions. Lab Interpretation (test Abnormal code = 31764-6) [facility] CenterACTIV[facility] PARTIAL THRMPLAS [id number] 22:30:08 Test Item Value Reference Range Interpretation Comments APTT Patient (test code = 28 See_Comment [ Automated message] 3173-2) The system [employer] generated this result transmitted ref erence range: 26 - 36 Seconds. The re ference range was not u sed to interpret this result as normal/abnor mal. Lab Interpretation (test Normal code = 69755-2) [facility] ACT HIGH [id number] 22:22:24 Test Item Value Reference Range Interpretation Comments ACTHR (test code = 519 See_Comment H [Automat ed message] [id number]) The system Yasmo generated this result transmitted ref erence range: 96 - 152 Seconds. The reference range was not used to int erpret this result as normal/abnormal . Lab Interpretation (test Abnormal code = 10596-9) [facility] [id number] 22:22:24 Test Item Value Reference Range Interpretation Comments ACTHR (test code = 106 See_Comment [Automat ed message] [id number]) The system Yasmo generated this result transmitted ref erence range: 96 - 152 Seconds. The re ference range was not u sed to interpret this result as normal/abnor mal. Lab Interpretation (test Normal code = 60117-7) [facility] Platelets (in units): 2 Units~ 2021-01-20 21:54:03 Test Item Value Reference Range Interpretation Comments Unit Blood Type (test O Pos code = 4410) ISBT Blood Type Code 5100 (test code = 797521) Unit Number (test code [id number] = 4411) Blood Expiration Date [id number] & Time (test code = 006281) Status Information Issued (test code = 4412) Product Identification Platelets (test code = 4413) Product Code (test [id number] Performed at [facility] code = 4414) Laboratory Services - [facility] Blood [address] [address]Bwjn Free: [phone] A No. [id number] [facility] [id number] 21:19:29 Test Item Value Reference Range Interpretation Comments PH (test code = 2) 7.43 7.35-7.45 PCO2 (test code = 32 See_Comment L [Automate d message] [id number]) The system Yasmo generated this result transmit thuy reference range : 35 - 45 mmHg. The reference range was not used to interpret this result as normal/abnormal . PO2 (test code = 408 See_Comment H [Automated message] 1003497989) The system Yasmo generated this result transmit thuy reference range : 80 - 100 mmHg. The reference range was not used to interpret this result as normal/abnormal . BE (test code = -3.0 See_Comment [Automated message] 9948352446) The system Yasmo generated this result transmit thuy reference range : -3.0 - 3.0 mEq/ L. The reference r jaswinder was not used to interpret this result as normal/abnormal . HCO3 (test code = 21 See_Comment L [Automate d message] 8862299027) The system Yasmo generated this result transmit thuy reference range : 22 - 26 mEq/L. The reference range was not used to interpret this result as normal/abnormal . %O2HB (test code = 100.0 % 95.0-98.0 H 0460733374) NA (test code = 141 mmol/L 135-145 1619221429) K+ (test code = 3.8 mmol/L 3.5-5.0 5613457749) AC CA IONZ (test code = 5.90 mg/dL 4.50-5.30 H 8618158529) GLUCOSE (test code = 131 mg/dL 70-110 H 2426098961) AC Hematocrit (test 16 See_Comment LL [Automa thuy message] code = 8906803526) The syste m which generated this result transmit thuy reference range : 40 - 54 VOL %. The reference range was not used to interpret this result as normal/abnormal . THB (test code = 5.4 g/dL 13.5-18.0 LL 4660150197) AC TC02 (test code = 22 mmol/L See_Comment L [Autom ated message] 9370896914) The system Yasmo generated this result transmit thuy reference range : 23-27 mmol/L. T he reference range was not used to interpret this result as normal/abnormal . Lab Interpretation Abnormal (test code = 30483-5) [facility] ACUTE CARE [id number] 20:35:53 Test Item Value Reference Range Interpretation Comments PH (test code = 2) 7.44 7.35-7.45 PCO2 (test code = 33 See_Comment L [Automate d message] 2137955614) The system Yasmo generated this result transmit thuy reference range : 35 - 45 mmHg. The reference range was not used to interpret this result as normal/abnormal . PO2 (test code = 213 See_Comment H [Automated message] 0477614168) The system Yasm[employer] generated this result transmit thuy reference range : 80 - 100 mmHg. The reference range was not used to interpret this result as normal/abnormal . BE (test code = -2.0 See_Comment [Automated message] 1623275941) The system Yasm[employer] generated this result transmit thuy reference range : -3.0 - 3.0 mEq/ L. The reference r jaswinder was not used to interpret this result as normal/abnormal . HCO3 (test code = 22 See_Comment [Automate d message] 6001602353) The system Yasmo generated this result transmit thuy reference range : 22 - 26 mEq/L. The reference range was not used to interpret this result as normal/abnormal . %O2HB (test code = 100.0 % 95.0-98.0 H 4018560175) NA (test code = 138 mmol/L 135-145 1100707970) K+ (test code = 4.6 mmol/L 3.5-5.0 3746433199) AC CA IONZ (test code = 3.40 mg/dL 4.50-5.30 L 7956508124) GLUCOSE (test code = 170 mg/dL 70-110 H 8702728269) AC Hematocrit (test 20 See_Comment LL [Automa thuy message] code = 6499842146) The syste m which generated this result transmit thuy reference range : 40 - 54 VOL %. The reference range was not used to interpret this result as normal/abnormal . THB (test code = 6.8 g/dL 13.5-18.0 LL 5116453444) AC TC02 (test code = 23 mmol/L See_Comment [Autom ated message] 0657557705) The system Yasmo generated this result transmit thuy reference range : 23-27 mmol/L. T he reference range was not used to interpret this result as normal/abnormal . Lab Interpretation Abnormal (test code = 05137-7) [facility] ACUTE CARE [id number] 19:40:19 Test Item Value Reference Range Interpretation Comments PH (test code = 2) 7.45 7.35-7.45 PCO2 (test code = 35 See_Comment [Automate d message] 6755490805) The system Yasmo generated this result transmit thuy reference range : 35 - 45 mmHg. The reference range was not used to interpret this result as normal/abnormal . PO2 (test code = 218 See_Comment H [Automated message] 4844152311) The system Yasm[employer] generated this result transmit thuy reference range : 80 - 100 mmHg. The reference range was not used to interpret this result as normal/abnormal . BE (test code = 0.0 See_Comment [Automated message] 6797316367) The system Yasmo generated this result transmit thuy reference range : -3.0 - 3.0 mEq/ L. The reference r jaswinder was not used to interpret this result as normal/abnormal . HCO3 (test code = 24 See_Comment [Automate d message] 3139239518) The system Yasmo generated this result transmit thuy reference range : 22 - 26 mEq/L. The reference range was not used to interpret this result as normal/abnormal . %O2HB (test code = 100.0 % 95.0-98.0 H 8977536953) NA (test code = 139 mmol/L 135-145 9966337948) K+ (test code = 4.3 mmol/L 3.5-5.0 1770366473) AC CA IONZ (test code = 3.50 mg/dL 4.50-5.30 L 4499475242) GLUCOSE (test code = 128 mg/dL 70-110 H 8579335657) AC Hematocrit (test 19 See_Comment LL [Automa thuy message] code = 4381963028) The syste m which generated this result transmit thuy reference range : 40 - 54 VOL %. The reference range was not used to interpret this result as normal/abnormal . THB (test code = 6.5 g/dL 13.5-18.0 LL 8066588285) AC TC02 (test code = 25 mmol/L See_Comment [Autom ated message] 2887020813) The system Yasmo generated this result transmit thuy reference range : 23-27 mmol/L. T he reference range was not used to interpret this result as normal/abnormal . Lab Interpretation Abnormal (test code = 42405-6) [facility] ACUTE CARE [id number] 19:16:31 Test Item Value Reference Range Interpretation Comments PH (test code = 2) 7.32 7.35-7.45 L PCO2 (test code = 49 See_Comment H [Automate d message] 8497651956) The system Yasmo generated this result transmit thuy reference range : 35 - 45 mmHg. The reference range was not used to interpret this result as normal/abnormal . PO2 (test code = 320 See_Comment H [Automated message] 0872450369) The system Yasmo generated this result transmit thuy reference range : 80 - 100 mmHg. The reference range was not used to interpret this result as normal/abnormal . BE (test code = -1.0 See_Comment [Automated message] 4074344257) The system Yasmo generated this result transmit thuy reference range : -3.0 - 3.0 mEq/ L. The reference r jaswinder was not used to interpret this result as normal/abnormal . HCO3 (test code = 25 See_Comment [Automate d message] 6676641277) The system Yasmo generated this result transmit thuy reference range : 22 - 26 mEq/L. The reference range was not used to interpret this result as normal/abnormal . %O2HB (test code = 100.0 % 95.0-98.0 H 1113766804) NA (test code = 139 mmol/L 135-145 3667456111) K+ (test code = 4.1 mmol/L 3.5-5.0 2609318921) AC CA IONZ (test code = 3.50 mg/dL 4.50-5.30 L 9625736662) GLUCOSE (test code = 77 mg/dL 70-110 5033636141) AC Hematocrit (test 18 See_Comment LL [Automa thuy message] code = 6891865031) The syste m which generated this result transmit thuy reference range : 40 - 54 VOL %. The reference range was not used to interpret this result as normal/abnormal . THB (test code = 6.1 g/dL 13.5-18.0 LL 3028315058) AC TC02 (test code = 27 mmol/L See_Comment [Autom ated message] 2878846012) The system Yasmo generated this result transmit thuy reference range : 23-27 mmol/L. T he reference range was not used to interpret this result as normal/abnormal . Lab Interpretation Abnormal (test code = 24944-0) [facility]), 2 Units 2021-01-20 18:06:15 Test Item Value Reference Range Interpretation Comments Cross Match Result Compatible (test code = 4409) ISBT Blood Type Code 6200 (test code = 695846) Unit Blood Type (test A Pos code = 4410) Unit Number (test [id number] code = 4411) Blood Expiration Date & Time (test code = 827353) Status Information Issued (test code = 4412) Product Red Blood Cells Identification (test code = 4413) Product Code (test [id number] Performed at [facility] code = 4414) Laboratory Services - [facility] Blood [address] [place] [address]Ofnv Free: [phone] A No. [id number] [facility] ACUTE CARE [id number] 17:45:13 Test Item Value Reference Range Interpretation Comments PH (test code = 2) 7.40 7.35-7.45 PCO2 (test code = 44 See_Comment [Automate d message] 4637797261) The system Yasmo generated this result transmit thuy reference range : 35 - 45 mmHg. The reference range was not used to interpret this result as normal/abnormal . PO2 (test code = 419 See_Comment H [Automated message] 5762544322) The system Yasmo generated this result transmit thuy reference range : 80 - 100 mmHg. The reference range was not used to interpret this result as normal/abnormal . BE (test code = 2.0 See_Comment [Automated message] 4599537023) The system Yasmo generated this result transmit thuy reference range : -3.0 - 3.0 mEq/ L. The reference r jaswinder was not used to interpret this result as normal/abnormal . HCO3 (test code = 27 See_Comment H [Automate d message] 3829261083) The system Yasmo generated this result transmit thuy reference range : 22 - 26 mEq/L. The reference range was not used to interpret this result as normal/abnormal . %O2HB (test code = 100.0 % 95.0-98.0 H 4999861873) NA (test code = 139 mmol/L 135-145 1693457012) K+ (test code = 4.0 mmol/L 3.5-5.0 5494941344) AC CA IONZ (test code = 4.70 mg/dL 4.50-5.30 3761726204) GLUCOSE (test code = 81 mg/dL 70-110 2141645977) AC Hematocrit (test 26 See_Comment L [Automa thuy message] code = 5860831567) The syste m which generated this result transmit thuy reference range : 40 - 54 VOL %. The reference range was not used to interpret this result as normal/abnormal . THB (test code = 8.8 g/dL 13.5-18.0 L 6012247519) AC TC02 (test code = 29 mmol/L See_Comment H [Autom ated message] 0227721673) The system Yasmo generated this result transmit thuy reference range : 23-27 mmol/L. T he reference range was not used to interpret this result as normal/abnormal . Lab Interpretation Abnormal (test code = 43091-4) [facility] (in [facility]), 2 Units 2021-01-20 17:16:28 Test Item Value Reference Range Interpretation Comments Cross Match Result Compatible (test code = 4409) ISBT Blood Type Code 6200 (test code = 546014) Unit Blood Type (test A Pos code = 4410) Unit Number (test [id number] code = 4411) Blood Expiration Date [id number] & Time (test code = 332608) Status Information Issued (test code = 4412) Product Red Blood Cells Identification (test code = 4413) Product Code (test [id number] Performed at [facility] code = 4414) Laboratory Services - [facility] Blood [address] [address]Zudt Free: [phone] A No. [id number] [facility] WITH [id number] 14:22:21 Test Item Value Reference Range Interpretation Comments WBC (test code = 5.38 See_Comment [Automated 6390-2) message] The sy stem which generated this result transmitted reference range : 4.20 - 10.70 10*3/?L. The reference range was not used to interpret this result as normal/abnormal . RBC (test code = 2.86 See_Comment L [Automated 639-8) message] The sy stem which generated this [...] RDW-SD (test code = 46.5 fL 38.5-51.6 10388-2) RDW-CV (test code = 12.8 % 12.1-15.4 788-0) PLT (test code = 245 See_Comment [Automated 777-3) message] The sy stem which generated this result transmitted reference range : 150 - 328 10*3/ ?L. The reference r jaswinder was not used to interpret this result as normal/abnormal . MPV (test code = 9.6 fL 9.8-13.0 L 53532-0) NRBC/100 WBC (test 0.0 See_Comment [Automat ed code = 8021478952) message] The system which generated this result transmitted reference range : 0.0 - 10.0 /100 WBCs. The refer ence range was not u sed to interpret th is result as normal/abnormal . NRBC x10^3 (test code <0.01 See_Comment [Auto mated = 6473624008) message] The s ystem which generated this result transmitted reference range : 10*3/?L. The reference range was not used to interpret this result as normal/abnormal . GRAN MAT (NEUT) % 63.7 % (test code = 770-8) IMM GRAN % (test code 0.40 % = 0317127851) LYMPH % (test code = 27.1 % 736-9) MONO % (test code = 7.2 % 5905-5) EOS % (test code = 0.9 % 713-8) BASO % (test code = 0.7 % 706-2) GRAN MAT x10^3(ANC) 3.42 10*3/uL 1.99-6.95 (test code = 1162601749) IMM GRAN x10^3 (test <0.03 0.00-0.06 code = 8588709429) LYMPH x10^3 (test code 1.46 10*3/uL 1.09-3.23 = 731-0) MONO x10^3 (test code 0.39 10*3/uL 0.36-1.02 = 742-7) EOS x10^3 (test code = 0.05 10*3/uL 0.06-0.53 L 711-2) BASO x10^3 (test code 0.04 10*3/uL 0.01-0.09 = 704-7) Lab Interpretation Abnormal (test code = 52817-1) [facility] [id number] 13:57:35 Test Item Value Reference Range Interpretation Comments ABO & RH (test code A Positive Performe d at [facility] = 20) Laboratory Serv [facility] Blood Bank3 [address] [facility] [address]Yzdh Free: [phone] A No. [id number] [facility] CenterUrinalysis2021-04-28 13:36:49 Test Item Value Reference Range Interpretation Comments APPEARANCE (test code = Hazy Clear A 2790646881) COLOR (test code = Yellow Yellow 6717002508) PH (test code = 5.0 4.8-8.0 6974456547) SP GRAVITY (test code = 1.008 1.003-1.030 4244252727) GLU U QUAL (test code = Normal Normal 1788662325) BLOOD (test code = Negative Negative Interfere nce from 2788045367) ascorbic acid m ay cause false neg ative results. KETONES (test code = 5 mg/dL Negative A 0797207631) PROTEIN (test code = Negative Negative 2887-8) UROBILIN (test code = Normal Normal 4813743041) BILIRUBIN (test code = Negative Negative 0796133244) NITRITE (test code = Negative Negative 3118067123) LEUK ALEKSEY (test code = 75/uL Negative A 1604018451) RBC/HPF (test code = 7 See_Comment H [Autom ated message] 5976833758) The system Yasmo generated this result transmitted ref erence range: 0 - 3 HP F. The reference range was not used to int erpret this result as normal/abnormal . WBC/HPF (test code = 5 See_Comment [Autom ated message] 7573983795) The system Yasmo generated this result transmitted ref erence range: 0 - 5 HP F. The reference range was not used to int erpret this result as normal/abnormal . BACTERIA (test code = Negative Negative 9176105052) SQ EPITH (test code = <1 See_Comment [Auto mated message] 8178656523) The system Yasmo generated this result transmitted ref erence range: <=2 HPF. The reference range was not used to int erpret this result as normal/abnormal . ASCORBIC ACID (test code 20 mg/dL = 5724049272) Lab Interpretation (test Abnormal code = 89398-0) [facility] METABOLIC PANEL (NA, K, CL, CO2, GLUCOSE, BUN, CREATININE, CA)2021-01-20 13:34:51 Test Item Value Reference Range Interpretation Comments NA (test code = 138 mmol/L 135-145 0563128668) K (test code = 4.2 mmol/L 3.5-5.0 4663473338) CL (test code = 104 mmol/L 98-108 0292795180) CO2 TOTAL (test code 26 mmol/L 23-31 = 9253629040) AGAP (test code = 8 2-16 3825720536) BUN (test code = 10 mg/dL 7-23 2976201296) GLUCOSE (test code = 82 mg/dL 70-110 0472416309) CREATININE (test code 0.66 mg/dL 0.60-1.25 = 0290154704) CALCIUM (test code = 9.0 mg/dL 8.6-10.6 4504115340) eGFR (test code = 115.6 mL/min/1.73m2 4173748284) CARLIE (test code = CARLIE) Association of [...] or urine or abnormalities in imaging tests). [facility] Screen - The Type and Screen expires at midnight on the 3rd day after it was drawn. A current Type and Screen is required when RBCs are requested. For all other blood products, a Type and Scree n performed during the current hospitalizati...2021-01-20 13:02:07 Test Item Value Reference Range Interpretation Comments ABO & RH (test code A POSITIVE Performe d at [facility] = 20) Laboratory Serv [facility] Blood Bank3 [address] [facility] [address]Vhry Free: [phone] A No. [id number] IAT (test code = Negative Performed a t [facility] 1185) Laboratory Serv [facility] Blood Bank3 [address] [facility] [address]Fede Free: [phone] A No. [id number] [facility] CenterPROTHROMBIN TIME / [id number] 13:00:24 Test Item Value Reference Range Interpretation Comments PROTIME PATIENT (test 11.1 See_Comment [Auto mated message] code = 5964-2) The system [employer] generated this result transmitted ref erence range: 10.1 - 1 2.6 Seconds. The re ference range was not u sed to interpret this result as normal/abnor mal. INR (test code = 6301-6) 1.0 Nor mal INR <1.1; Warfarin Therap eutic range 2.0 to 3. 0 or 2.5 to 3.5, dep ending upon the indica tions. Lab Interpretation (test Normal code = 42840-0) [facility]"
--- NOTE | 2022-10-29 21:47 | EDPHYS ---
Physician Documentation [facility] Name: Cecil Butterfield Age: 82 yrs Sex: Male : 1940 Arrival Date: 10/29/2022 Time: 21:00 Bed 19 Private MD: ED Physician Casandra Ojeda HPI: 10/29 21:41 This 82 yrs old Male presents to ER via EMS with complaints of abdominal pain. sd2 21:41 82-year-old male presents via EMS with chief complaint of abdominal pain. EMS reports sd2 that the patient was seen here earlier today for the same symptoms and discharged back to his facility after a negative work-up. The patient reports he had pain upon discharge to his lower abdominal area that persisted until approximately 45 minutes prior to arrival and has remained resolved since then. The patient denies any associated fevers, nausea, vomiting, diarrhea or abnormal bowel movements. He reports having 3 normal bowel movements earlier today as well. He states he has been able to eat and drink and only occasionally notices increased pain after eating or drinking.. Upon further chart review, the patient was actually seen at our facility yesterday and diagnosed with possible volvulus on CT and was consulted on by general surgery. The patient had complete resolution of his symptoms and no further intervention was recommended at that time and he was discharged back to his assisted living facility. The patient does have new onset dementia and does not recall the situation.. Historical: - PMHx: 21:30 Alzheimer's disease; Anemia; blood transfusion from bleeding ucler; CAD; CVA; GI Bleed; pf1 Hypertension; Ulcers; volvulus; - PSHx: 21:30 open heart surgery; pf1 - Immunization history:: Adult Immunizations unknown. - Social history:: Smoking status: unknown. ROS: 21:41 Constitutional: Negative for fever, chills, and weight loss, Eyes: Negative for injury, sd2 pain, redness, and discharge, Cardiovascular: Negative for chest pain, palpitations, and edema, Respiratory: Negative for shortness of breath, cough, wheezing. 21:41 MS/Extremity: Negative for injury and deformity, Skin: Negative for injury, rash, and discoloration. 21:41 Abdomen/GI: Positive for abdominal pain, Negative for nausea, vomiting, and diarrhea, constipation, black/tarry stool. Exam: 21:41 Constitutional: This is a well developed, well nourished patient who is awake, alert, sd2 and in no acute distress. Head/Face: Normocephalic, atraumatic. Eyes: EOMI, normal conjunctiva bilaterally Chest/axilla: Normal chest wall appearance and motion. Nontender with no deformity. Cardiovascular: Regular rate and rhythm with a normal S1 and S2. No gallops, murmurs, or rubs. 2+ distal pulses. Respiratory: Lungs have equal breath sounds bilaterally, clear to auscultation and percussion. No rales, rhonchi or wheezes noted. No increased work of breathing, no retractions or nasal flaring. Abdomen/GI: Soft, non-tender, with normal bowel sounds. No guarding or rebound. No evidence of tenderness throughout. Skin: Warm, dry with normal turgor. Normal color with no rashes, no lesions, and no evidence of cellulitis. MS/ Extremity: Pulses equal, no cyanosis. Neurovascular intact. Full, normal range of motion. Ambulatory without difficulty. Vital Signs: 21:04 BP 148 / 86; Pulse 100; Resp 18; Temp 98; Pulse Ox 100% on R/A; Weight 63.5 kg; Height pf1 5 ft. 6 in. (167.64 cm); Pain 0/10; 22:00 BP 144 / 92; Pulse 88; Resp 20; Temp 98.1; Pulse Ox 100% on R/A; Pain 0/10; pf1 21:04 Body Mass Index 22.60 (63.50 kg, 167.64 cm) pf1 MDM: 21:04 Patient medically screened. sd2 21:25 ED course: Discussed case with Dr. Yi, General Surgeon, who consulted on patient sd2 previously. Reports if patient looks well clinically and remains asymptomatic, no further workup recommended at this time. Questionable volvulus previously and small area may be twisting and relieving of intestines. Recommends bedrest and minimal physical activity for a few days and outpatient follow up. May need surgery if symptoms persist and continue to recur.. 21:41 Differential Diagnosis volvulus, SBO, dehydration, diverticulitis among others. Data sd2 reviewed: vital signs, nurses notes, old medical records, Recent hospitalization. Consideration of Admission/Observation Escalation of care including admission/observation considered. Management of patient was discussed with the following: Rf Manager: Dr. Yi. Test considered but Not performed: Labs: Rf Manager reports not necessary. X-ray: Rf Manager reports not necessary. CT: Rf Manager reports not necessary. Historians other than the Patient: EMS: Provides HPI. Care significantly affected by the following chronic conditions: Dementia. Counseling: I had a detailed discussion with the patient and/or guardian regarding: the historical points, exam findings, and any diagnostic results supporting the discharge/admit diagnosis, the need for outpatient follow up, to return to the emergency department if symptoms worsen or persist or if there are any questions or concerns that arise at home. Administered Medications: No medications were administered Disposition Summary: 10/29/22 21:46 Discharge Ordered Location: Home sd2 Problem: an ongoing problem sd2 Symptoms: are resolved sd2 Condition: Stable sd2 Diagnosis - Lower abdominal pain, unspecified sd2 Followup: sd2 - With: Bean Yi MD - When: 2 - 3 days - Reason: Worsening of condition, Recheck today's complaints, Continuance of care Followup: sd2 - With: Private Physician - When: 2 - 3 days - Reason: Recheck today's complaints, Continuance of care, Re-evaluation by your physician Discharge Instructions: - Discharge Summary Sheet sd2 - Abdominal Pain, Adult sd2 - Volvulus sd2 Forms: - Medication Reconciliation Form sd2 - Thank You Letter sd2 - Antibiotic Education sd2 - Prescription Opioid Use sd2 Signatures: Casandra Ojeda MD MD sd2 Letty ruiz RN RN pf1
--- NOTE | 2022-10-29 21:47 | ER ---
Nurse's Notes [facility] Name: Cecil Butterfield Age: 82 yrs Sex: Male : 1940 Arrival Date: 10/29/2022 Time: 21:00 Bed 19 Private MD: Diagnosis: Lower abdominal pain, unspecified Presentation: 10/29 21:04 Chief complaint: Patient states: Patient arrived per EMS from [facility], stated pf1 patient C/O lower abdominal pain,onset today that resolved 45 minutes ago. denies any nausea,vomiting or diarrhea. Patient stated LBM was today. Patient was recently here at the ER on Monday for abdominal pain. Coronavirus screen: Client denies travel out of the [place] in the last 14 days. At this time, the client does not indicate any symptoms associated with coronavirus-19. Ebola Screen: Patient negative for fever greater than or equal to 101.5 degrees Fahrenheit, and additional compatible Ebola Virus Disease symptoms. Initial Sepsis Screen: Does the patient meet any 2 criteria? No. Patient's initial sepsis screen is negative. Does the patient have a suspected source of infection? No. Patient's initial sepsis screen is negative. Risk Assessment: Do you want to hurt yourself or someone else? Patient reports no desire to harm self or others. Onset of symptoms was October 28, 2022. 21:04 Method Of Arrival: EMS: [facility] pf1 21:04 Acuity: JAMSHID 3 pf1 Triage Assessment: 21:05 General: Appears in no apparent distress. comfortable, well groomed, well developed, pf1 Behavior is calm, cooperative, appropriate for age, quiet. 21:05 Pain:. Pain: Denies pain. pf1 21:05 EENT: No deficits noted. Neuro: No deficits noted. Level of Consciousness is awake, pf1 alert, obeys commands, Oriented to person, place, Appropriate for age. Cardiovascular: No deficits noted. Capillary refill < 3 seconds Patient's skin is warm and dry. Respiratory: No deficits noted. Airway is patent Trachea midline Respiratory effort is even, unlabored, Respiratory pattern is regular, symmetrical, Breath sounds are clear bilaterally. GI: Reports lower abdominal pain, Patient denies any abdominal pain at this time. EMS stated patient abdominal pain resolved approximately 45 minutes ago. GI: Abdomen is flat, non-distended, Bowel sounds present X 4 quads. Abd is soft and non tender X 4 quads. : No deficits noted. No signs and/or symptoms were reported regarding the genitourinary system. Derm: No deficits noted. No signs and/or symptoms reported regarding the dermatologic system. Derm: No deficits noted. No signs and/or symptoms reported regarding the dermatologic system. Historical: - PMHx: 21:30 Alzheimer's disease; Anemia; blood transfusion from bleeding ucler; CAD; CVA; GI Bleed; pf1 Hypertension; Ulcers; volvulus; - PSHx: 21:30 open heart surgery; pf1 - Immunization history:: Adult Immunizations unknown. - Social history:: Smoking status: unknown. Screenin:00 [facility] ED Fall Risk Assessment (Adult) History of falling in the last 3 months, pf1 including since admission No falls in past 3 months (0 pts) Confusion or Disorientation No (0 pts) Intoxicated or Sedated No (0 pts) Impaired Gait Yes (1 pt) Mobility Assist Device Used Yes (1 pt) Altered Elimination No (0 pt) Score/Fall Risk Level 0 - 2 = Low Risk Oriented to surroundings, Maintained a safe environment, Educated pt \T\ family on fall prevention, incl call for assistance when getting out of bed, Assessed \T\ reinforced patient's understanding of fall precautions, Provided non-skid footwear, Hourly rounding (assess needs \T\ fall precautionary measures) done, Used ambulatory aids as needed (educated on \T\ assisted with), Used gait belt as appropriate. 21:00 Abuse screen: Denies threats or abuse. Nutritional screening: No deficits noted. pf1 Tuberculosis screening: No symptoms or risk factors identified. Assessment: 21:15 General: Appears in no apparent distress. comfortable, slender, well groomed, well pf1 developed, Behavior is calm, cooperative, appropriate for age, quiet. 21:15 Pain: Denies pain. Neuro: No deficits noted. Level of Consciousness is awake, alert, pf1 obeys commands, Oriented to person, place, situation, Appropriate for age. Cardiovascular: No deficits noted. Capillary refill < 3 seconds Patient's skin is warm and dry. Respiratory: No deficits noted. Airway is patent Trachea midline Respiratory effort is even, unlabored, Respiratory pattern is regular, symmetrical, Breath sounds are clear bilaterally. GI: Reports lower abdominal pain, since today, Patient denies any pain at this time. GI: Abdomen is flat, non-distended, Bowel sounds present X 4 quads. Abd is soft and non tender X 4 quads. : No deficits noted. No signs and/or symptoms were reported regarding the genitourinary system. EENT: No deficits noted. No signs and/or symptoms were reported regarding the EENT system. Derm: No deficits noted. No signs and/or symptoms reported regarding the dermatologic system. 21:55 General: [facility] notified of patient needing transport back to the facility, Dali pf1 front desk clerk of [employer] stated will call back with ETA.. 22:26 General: Notified Dali with [employer] of [facility] phone #. Dali to call back pf1 with an ETA. 22:36 General: [facility] ETA 30 minutes per Dali with [employer]. pf1 Vital Signs: 21:04 BP 148 / 86; Pulse 100; Resp 18; Temp 98; Pulse Ox 100% on R/A; Weight 63.5 kg; Height pf1 5 ft. 6 in. (167.64 cm); Pain 0/10; 22:00 BP 144 / 92; Pulse 88; Resp 20; Temp 98.1; Pulse Ox 100% on R/A; Pain 0/10; pf1 21:04 Body Mass Index 22.60 (63.50 kg, 167.64 cm) pf1 ED Course: 21:00 Patient arrived in ED. zm 21:04 Casandra Ojeda MD is Attending Physician. sd2 21:05 No provider procedures requiring assistance completed. pf1 21:05 Patient did not have IV access during this emergency room visit. pf1 21:11 Triage completed. pf1 21:15 Patient has correct armband on for positive identification. Bed in low position. Call pf1 light in reach. Side rails up X2. 21:15 Arm band placed on right wrist. pf1 21:46 Bean Yi MD is Referral Physician. sd2 22:04 Letty ruiz, ELLE is Primary Nurse. pf1 Administered Medications: No medications were administered Medication: 21:15 VIS not applicable for this client. pf1 Outcome: 21:46 Discharge ordered by . sd2 22:53 Discharged to [facility] pf1 22:53 Condition: stable 22:53 Discharge instructions given to patient, Instructed on discharge instructions, follow up and referral plans. Demonstrated understanding of instructions, follow-up care. 22:55 Patient left the ED. pf1 Signatures: Angela Mullins Stephanie, MD MD sd2 Letty ruiz RN RN pf1 Corrections: (The following items were deleted from the chart) 02 00:57 02 21:00 [facility] ED Fall Risk Assessment (Adult) History of falling in the last 3 pf1 months, including since admission No falls in past 3 months (0 pts) Confusion or Disorientation No (0 pts) Intoxicated or Sedated No (0 pts) Impaired Gait Yes (1 pt) Mobility Assist Device Used Yes (1 pt) Altered Elimination Yes (1 pt) Score/Fall Risk Level 3 or more points = High Risk Oriented to surroundings, Maintained a safe environment, Educated pt \T\ family on fall prevention, incl call for assistance when getting out of bed, Assessed \T\ reinforced patient's understanding of fall precautions, Provided non-skid footwear, Hourly rounding (assess needs \T\ fall precautionary measures) done, Used ambulatory aids as needed (educated on \T\ assisted with), Used gait belt as appropriate Implemented a Fall Risk Plan of Care, Apply high fall risk patient identification: yellow non skid footwear/ fall signage, Remained w/in arm's length of patient and in sight while toileting, Offered frequent toileting (1:1 observation), Remained with patient while ambulating, Utilized family, sitter, or virtual substation operator as indicated pf1
== END 2022-10-29 22:55 | disposition home or self-care (01) ==
LOC: ER 20:57
DX: R10.30 Lower abdominal pain, unspecified (principal)
CPT/HCPCS: 99283

== ENCOUNTER 2023-04-01 18:58 | Emergency (ER) | payer MEDICARE, BC ==
--- OUTSIDE RECORDS SUMMARY | 2023-04-01 19:05 | XMS REPORT | Continuity of Care Document ---
:1940 Author Organization [facility] t Address [address] [place] [address] Care Team Providers Name Role Phone ALDO DUKE Primary Care Physician Unavailable OBED CABRERA Attending Clinician Unavailable DR KELLIE MEJIA Attending Clinician Unavailable Maurilio Love MD Attending Clinician MAURILIO LOVE Attending Clinician Unavailable MAURILIO LOVE Attending Clinician Unavailable Doctor Unassigned, Pink Attending Clinician Unavailable CAREN WOOD Attending Clinician Unavailable Lauren Saha Attending Clinician [phone] KATHERINE LANDA Attending Clinician Unavailable LAUREN KAHN Attending Clinician Unavailable Katherine Landa MD Attending Clinician Kade Fierro RN Attending Clinician Unavailable REBEKAH VIZCARRA Attending Clinician Unavailable Rebekah Vizcarra MD Attending Clinician JASS OLIVO Attending Clinician Unavailable Gerson Abbott MD Attending Clinician Jass Olivo MD Attending Clinician JACE CANNON Attending Clinician Unavailable Nurse, [facility] Pob Immunization Attending Clinician Unavailable Jace Cannon DO Attending Clinician Provider, [facility] Attending Clinician Unavailable Syed OTDD, Tari Attending Clinician TARI SAHA Attending Clinician Unavailable Alverto WEAVERP, Kassidy Attending Clinician Aldo Breen DO Attending Clinician ALDO BREEN Attending Clinician Unavailable Deborah VENCES, Obed Joseph Attending Clinician Imani LATHE WINDER, Jumana Johnson Attending Clinician Only, [facility] Test Attending Clinician Unavailable Karel TODD, Juliana Gandhi Attending Clinician Henok RN, Peggy Adkins Attending Clinician Michelet VENCES, Vadim Lee Attending Clinician Nate VENCES, Kuldip Gil Attending Clinician Umang Ny MD Attending Clinician Rodney EVNCES, Monty Hooper Attending Clinician VADIM MCDANIEL Attending Clinician Unavailable MARC COREAS Attending Clinician Unavailable OBED CABRERA Admitting Clinician Unavailable DR KELLIE MEJIA Admitting Clinician Unavailable MAURILIO LOVE Admitting Clinician Unavailable REBEKAH VIZCARRA Admitting Clinician Unavailable JASS OLIVO Admitting Clinician Unavailable Jass Olivo MD Admitting Clinician Aldo Breen DO Admitting Clinician ALDO BREEN Admitting Clinician Unavailable Obed Cabrera MD Admitting Clinician Yanely VENCES, Umang Admitting Clinician Payers Payer Name Policy Type Policy Number Effective Date Expiration Date S seth [facility] [id number] 2017 00:00:00 MEDICARE PART A \T\ [id number] 2004 B 00:00:00 0450 [id number] 2022 00:00:00 Problems Condition Condition Condition Status Onset Resolution Last Treating Co mments Source Name Details Category Date Date Treatment Clinician Date Hematemesi Hematemesi Disease Active U nivers s with s with 1-14 ity of nausea nausea 00:00: 00 Medical Branch Abdominal Abdominal Disease Active Uni vers pain, pain, 1-14 [place]ig[place] Fatigue, Fatigue, Disease Active Unive rs unspecifie unspecifie 1-14 it y of d type d type 00:00: 00 Medical Branch Urinary Urinary Disease Active [...] nivers n n 1-14 ity of 00:00: [place] 00 Medical Branch Nausea and Nausea and Disease Active U nivers vomiting, vomiting, 1-08 ity of intractabi intractabi [place] of lity of 00 Medical vomiting vomiting Branch not not specified, specified, unspecifie unspecifie d vomiting d vomiting type type FRIED FRIED Disease Active Univers (dyspnea (dyspnea 6-06 ity of on on 00:00: [place] exertion) exertion) 00 [facility] joana Branch Essential Essential Disease Active Uni vers hypertensi hypertensi 6-06 it y of on on 00:00: 00 Medical Branch Dyslipidem Dyslipidem Disease Active U nivers ia ia 6-06 ity of 00:00: [place] 00 Medical Branch 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 angina angina Added pectoris pectoris automatic ally from request for surgery [id number] Chest pain Chest pain Disease Active U nivers 4-14 ity of 00:00: [place] 00 Medical Branch NSTEMI NSTEMI Disease Active Univers (non-ST (non-ST 4-14 ity of elevated elevated 00:00: [place] myocardial myocardial 00 Me dical infarction infarction Br anch ) ) Iron Iron Disease Active Overview: Univer s deficiency deficiency 4-13 Formattin ity of anemia, anemia, 00:00: g of this [place] unspecifie unspecifie 00 note Me dical d iron d iron might be Branch deficiency deficiency different anemia anemia from the type type original. Added automatic ally from request for surgery [id number] Allergies, Adverse Reactions, Alerts Allergy Allergy Status Severity Reaction(s) Onset Inactive Treating Comm ents Source Name Type Date Date Clinician No Known DA Active [facility] NO KNOWN Drug Active [facility] ALLERGIE Class ity of S [facility] Social History Social Habit Start Date Stop Date Quantity Comments Source History SDOH University o f Alcohol Frequency [facility] edical Branch History SDVA University o f Alcohol Std Drinks [place] [facility] History [facility] University o f Alcohol Binge [facility] al Branch History of tobacco Cigarette Smoker University of use [facility] Exposure to 2022-05-03 2022-05-13 Not sure University SARS-CoV-2 (event) 00:00:00 09:34:00 [facility] Cigarettes smoked 2022-04-11 2022-04-11 Univers ity of current (pack per 00:00:00 00:00:[address] [facility] [place] [place] ) - Reported Branch Cigarette 2022-04-11 2022-04-11 University of pack-years 00:00:00 00:00:00 [facility] Alcohol intake 2022-04-11 2022-04-11 Current drinker Unive rsity of 00:00:00 00:00:00 of alcohol [facility] (finding) Branch Tobacco use and 2022-04-11 2022-04-11 Smokeless Universit y of exposure 00:00:00 00:00:00 tobacco non-user [facility] [place] [facility] dical [place] Alcohol Comment 2021-01-06 2021-01-06 socially Universit y of 00:00:00 00:00:00 [facility] Sex [birth year] Universit y of 00:00:00 00:00:00 [facility] Smoking Status Start Date Stop Date Source Ex-smoker 2022-04-11 00:00:00 2022-04-11 00:00:00 Universi ty of [facility] Medications Ordered Filled Start Stop Current Ordering Indication Dosage Frequency Signature Comments Components Source Medication Medication Date Date Medication? Clinician (SIG) Name Name rivastigmin Yes 1{patch Apply 1 Univers e 9.5 mg/24 4-25 } Patch to ity of hour patch 00:00: [facility] 00 daily. Medical Branch rivastigmin Yes 1{patch Apply 1 Univers e 9.5 mg/24 4-25 } Patch to ity of hour patch 00:00: [facility] 00 daily. Medical Branch rivastigmin Yes 1{patch Apply 1 Univers e 9.5 mg/24 4-25 } Patch to ity of hour patch 00:00: skin [place] 00 daily. Medical Branch ondansetron Yes [id number] 8mg Take 1 Univers (ZOFRAN) 8 1-14 tablet by ity of mg tablet 00:00: mouth [place] 00 every 8 Medical (eight) Branch hours as needed for N/V unresponsi ve to Promethazi ne. famotidine Yes [id number] 40mg Take 1 U nivers (PEPCID) 40 1-14 tablet by ity of mg tablet 00:00: mouth 2 (two) Medical times Branch daily. ondansetron Yes [id number] 8mg Take 1 Univers (ZOFRAN) 8 1-14 tablet by ity of mg tablet 00:00: mouth [place] 00 every 8 Medical (eight) Branch hours as needed for N/V unresponsi ve to Promethazi ne. famotidine Yes [id number] 40mg Take 1 U nivers (PEPCID) 40 1-14 tablet by ity of mg tablet 00:00: mouth 2 [place] (two) Medical times Branch daily. ondansetron Yes [id number] 8mg Take 1 Univers (ZOFRAN) 8 1-14 tablet by ity of mg tablet 00:00: mouth [place] 00 every 8 Medical (eight) Branch hours as needed for N/V unresponsi ve to Promethazi ne. famotidine Yes [id number] 40mg Take 1 U nivers (PEPCID) 40 1-14 tablet by ity of mg tablet 00:00: mouth 2 [place] 00 (two) Medical times Branch daily. proMETHazin Yes [id number] 25mg Take 1 Univers e 25 mg 1-10 tablet by ity of tablet 00:00: mouth [place] 00 every 6 Medical (six) Branch hours as needed for Nausea and Vomiting (N/V). proMETHazin Yes [id number] 25mg Take 1 Univers e 25 mg 1-10 tablet by ity of tablet 00:00: mouth [place] 00 every 6 Medical (six) Branch hours as needed for Nausea and Vomiting (N/V). proMETHazin Yes [id number] 25mg Take 1 Univers e 25 mg 1-10 tablet by ity of tablet 00:00: mouth [place] 00 every 6 Medical (six) Branch hours as needed for Nausea and Vomiting (N/V). zolpidem 5 2020-09 Yes 5mg Take 5 mg Un mark mg tablet 2-23 by mouth ity of 00:00: at [place] 00 bedtime. Medical Branch zolpidem 5 2020-09 Yes 5mg Take 5 mg Un mark mg tablet 2-23 by mouth ity of 00:00: at [place] 00 bedtime. Medical Branch zolpidem 5 2020-09 Yes 5mg Take 5 mg Un mark mg tablet 2-23 by mouth ity of 00:00: at [place] 00 bedtime. Medical Branch atorvastati Yes [id number] 80mg Take 1 Univers n 80 mg 7-13 tablet by ity of tablet 00:00: mouth at [place] 00 bedtime. Medical Branch clopidogreL Yes [id number] 75mg Take 1 Univers 75 mg 7-13 tablet by ity of tablet 00:00: mouth [place] 00 daily. Medical Branch metoprolol Yes [id number] 25mg Take 1 Univers tartrate 25 7-13 tablet by ity of mg tablet 00:00: mouth [place] 00 every 12 Medical (twelve) Branch hours. atorvastati 2020-0 Yes [id number] 80mg Take 1 Univers n 80 mg 7-13 tablet by ity of tablet 00:00: mouth at [place] 00 bedtime. Medical Branch clopidogreL 2020-0 Yes [id number] 75mg Take 1 Univers 75 mg 7-13 tablet by ity of tablet 00:00: mouth [place] 00 daily. Medical Branch metoprolol 2020-0 Yes [id number] 25mg Take 1 Univers tartrate 25 7-13 tablet by ity of mg tablet 00:00: mouth [place] 00 every 12 Medical (twelve) Branch hours. atorvastati 2020-0 Yes [id number] 80mg Take 1 Univers n 80 mg 7-13 tablet by ity of tablet 00:00: mouth at [place] 00 bedtime. Medical Branch clopidogreL 2020-0 Yes [id number] 75mg Take 1 Univers 75 mg 7-13 tablet by ity of tablet 00:00: mouth [place] 00 daily. Medical Branch metoprolol 0 Yes [id number] 25mg Take 1 Univers tartrate 25 7-13 tablet by ity of mg tablet 00:00: mouth [place] 00 every 12 Medical (twelve) Branch hours. mupirocin 2 0 Yes [id number] Apply to Univers % ointment 5-08 area(s) 3 ity of 00:00: (three) [place] 00 times Medical daily. Branch mupirocin 2 0 Yes [id number] Apply to Univers % ointment 5-08 area(s) 3 ity of 00:00: (three) [place] 00 times Medical daily. Branch mupirocin 2 0 Yes [id number] Apply to Univers % ointment 5-08 area(s) 3 ity of 00:00: (three) [place] 00 times Medical daily. Branch Immunizations Ordered Filled Immunization Date Status Comments [facility] e Immunization Name Name SARS-COV-2 COVID-19 2021-08-27 Completed Unive rsity of MODERNA 0.25ML 00:00:00 [place] Medi joana BOOSTER VACCINE Branch SARS-COV-2 COVID-19 2021-08-27 Completed Unive rsity of MODERNA 0.25ML 00:00:00 [place] Medi joana BOOSTER VACCINE Branch SARS-COV-2 COVID-19 2021-08-27 Completed Unive rsity of MODERNA 0.25ML 00:00:00 [facility] joana BOOSTER VACCINE Branch SARS-COV-2 COVID-19 2020-12-20 Completed Unive rsity of MODERNA VACCINE 00:00:00 [place] Med ical Branch SARS-COV-2 COVID-19 2020-12-20 Completed Unive rsity of MODERNA VACCINE 00:00:00 [place] Med ical Branch SARS-COV-2 COVID-19 2020-12-20 Completed Unive rsity of MODERNA 12+ YRS 00:00:00 [place] Med ical VACCINE Branch SARS-COV-2 COVID-19 2020-11-22 Completed Unive rsity of MODERNA VACCINE 00:00:00 [facility] ical Branch SARS-COV-2 COVID-19 2020-11-22 Completed Unive rsity of MODERNA VACCINE 00:00:00 [facility] ical Branch SARS-COV-2 COVID-19 2020-11-22 Completed Unive rsity of MODERNA 12+ YRS 00:00:00 [facility] [place] [facility] VACCINE Branch Influenza Virus 2020-08-08 Completed Universit y of Vaccine 00:00:00 [facility] Influenza Virus 2020-08-08 Completed Universit y of Vaccine 00:00:00 [facility] Influenza Virus 2020-08-08 Completed Universit y of Vaccine 00:00:00 [facility] Vital Signs Vital Name Observation Time Observation Value Comments Source Height 2022-12-20 18:19:00 157.48 CM Weight 2022-12-20 18:19:00 56.69 KG Systolic blood 2022-05-13 14:52:00 122 mm[Hg] Univer sity of [place] [facility] Diastolic blood 2022-05-13 14:52:00 77 mm[Hg] Unive rsity of [place] [facility] Heart rate 2022-05-13 14:52:00 98 /min Universi ty [facility] Body height 2022-05-13 14:52:00 154.9 cm [facility] Body weight 2022-05-13 14:52:00 46.72 kg Universi ty [facility] BMI 2022-05-13 14:52:00 19.46 kg/m2 [facility] Oxygen saturation 2022-05-13 14:52:00 98 /min Uni versity of [place] in Arterial blood Medical Br anch by Pulse oximetry Procedures Procedure Date / Time Performing Clinician Source Performed AUTHORIZATION FOR 2022-05-13 05:01:00 Doctor Unassigned, No [facility] RELEASE OF PHI Name Medical Branch Encounters Start End Encounter Admission Attending Care Care Encounter Source Date/Time Date/Time Type Type Clinicians Facility Department ID 2021-07-25 Emergency [facility] [id number] Univers 22:08:24 ity [facility] 2021-07-25 Emergency [facility] [id number] Univers [facility]-25 Inpatient R DEBORAH [facility] SCT [id number] Univers 15:38:15 OBED [facility] 2022-12-20 2023-01-02 Inpatient E ROBERTO [facility] SCU [id number] [place] 23:56:00 19:51:00 [facility] [place] 2022-12-20 2022-12-20 Emergency E [facility] ECC [id number] [place] 18:06:00 18:06:00 Medica l [place] 2022-12-07 2022-12-07 Telephone [facility] 1.2.840.114 [id number] Univers 00:00:00 00:00:00 [facility] [id number] ity of [place] 4.2.7.2.686 [place] as PABLO?BLEA [id number] [address] OFFICE BUILDING 2022-05-13 2022-05-13 Office [facility] [id number] Univers 09:40:00 10:12:21 Visit [facility] [id number] ity of [place] 4.2.7.2.686 [place] as PABLO?BLEA [id number] [address] MEDICAL OFFICE BUILDING 2022-05-13 2022-05-13 Outpatient MAURILIO GEE [facility] [id number] Univers 09:40:00 10:12:21 MAURILIO LOVE [facility] 2022-05-13 2022-05-13 Outpatient MAURILIO GEE [facility] [id number] Univers 09:40:00 09:40:00 MAURILIO LOVE deepthi [facility] 2022-05-13 2022-05-13 Orders Doctor AP 1.2.840.114 [id number] Univers 00:00:00 00:00:00 Only Unassigned, BERYL 350.1.13.10 ity of [place] [facility] 4.2.7.2.686 [place] as [id number] [address] 2022-05-05 2022-05-05 [facility] [id number] Univers 14:16:35 23:59:00 Encounter [facility] [id number] ity of [place] 4.2.7.2.686 [facility] [id number] [address] 2022-05-05 2022-05-05 Outpatient Sara SALEHMAURILIO Barahona [facility] [id number] Univers 14:14:22 14:15:00 GLORIAMAURILIO Barahona deepthi [facility] 2022-05-05 2022-05-05 [facility] [id number] Univers 14:14:22 14:15:00 Encounter Maurilio PANIAGUA 350.1.13.10 ity of [place] 4.2.7.2.686 [facility] [id number] [address] 2022-05-05 2022-05-05 Outpatient Sara SALEHMAURILIO Barahona [facility] [id number] Univers 00:00:00 00:00:00 GLORIAMAURILIO Barahona deepthi [facility] 2022-05-05 2022-05-05 Orders Doctor AP 1.2.840.114 [id number] Univers 00:00:00 00:00:00 Only Unassigned, BERYL 350.1.13.10 ity of Pink HOSPITAL 4.2.7.2.686 [place] as [id number] [address] 2022-04-11 2022-04-11 [facility] 1.2.840.114 [id number] Univers 16:20:00 17:07:[address] [facility] [id number] ity of [place] 4.2.7.2.686 [place] as PABLO?BLEA [id number] Ri dicbrigitte SAVAGE [address] [place] [address] MEDICAL OFFICE BUILDING 2022-04-11 2022-04-11 Outpatient MAURILIO GEE [facility] [id number] Univers 16:20:00 17:07:36 MAURILIO LOVE nancy [facility] 2022-04-11 2022-04-11 Outpatient R MAURILIO LOVE [facility] [id number] Univers 16:20:00 16:20:00 MAURILIO LOVE bricenancy [facility] 2022-03-31 2022-03-31 Outpatient MAURILIO GEE [facility] [id number] Univers 11:11:45 23:59:00 MAURILIO LOVE deepthi [facility] 2022-03-31 2022-03-31 [facility] [id number] Univers 11:11:45 23:59:00 Encounter Maurilio Case [place] 350.1.13.10 ity [facility] 4.2.7.2.686 [place] [id number] [facility] [address] [place] [address] 2022-03-30 2022-03-30 Outpatient Sara WOOD [facility] [id number] Univers 14:30:00 14:30:00 CAREN johnson [facility] 2022-03-16 2022-03-16 Patient Gloria [facility] 1.2.840.114 [id number] Univers 00:00:00 00:00:00 Secure Maurilio [facility] 350.1.13.[address] [facility] 4.2.7.2.686 [place] PABLO?BLEA [id number] Ri arianna GEORGES [address] [place] [address] MEDICAL OFFICE [facility] 2022-02-02 2022-02-02 Patient Jeffry [facility] 1.2.840.114 [id number] Univers 00:00:00 00:00:00 Secure Msg ise, SPECIALTY 350.1.13.10 ity [facility] 4.2.7.2.686 [place] AT [id number] Ri arianna SAENZ [address] [place] [address] 2022-01-26 2022-01-26 Outpatient R CASPER [facility] [id number] Univers 13:00:00 13:00:00 KATHERINE johnson [facility] 2022-01-15 2022-01-15 Refill [facility] 1.2.840.114 [id number] Univers 00:00:00 00:00:00 [facility] 350.1.13.10 ity of [place] 4.2.7.2.686 [place] as PABLO?BLEA [id number] Ri arianna SAVAGE [address] [place] [address] MEDICAL OFFICE BUILDING 2022-01-11 2022-01-11 Outpatient R GLORIAMAURILIO [facility] [id number] Univers 11:20:00 12:15:14 GLORIAMAURILIO [facility] 2022-01-11 2022-01-11 Office [facility] 1.2.840.114 [id number] Univers 11:20:00 12:15:14 Visit [facility] 350.1.13.10 ity of [place] 4.2.7.2.686 [place] as PABOL?BLEA [id number] Ri arianna SAVAGE [address] [place] [address] MEDICAL OFFICE [facility] 2022-01-04 2022-01-04 Telephone Gloria [facility] 1.2.840.114 [id number] Univers 00:00:00 00:00:00 Maurilio [facility] 350.1.13.10 ity of [facility] 4.2.7.2.[place] [id number] Ri arianna MUKHERJEE [address] [place] [address] 2021-10-31 2021-10-31 Refill [facility] 1.2.840.114 [id number] Univers 00:00:00 00:00:00 ise, SPECIALTY 350.1.13.10 ity of [facility] 4.2.7.2.686 [place] C[place] AT [id number] Ri luzbrigitte SAENZ [address] [place] [address] 2021-10-20 2021-10-20 Refill [facility] 1.2.840.114 [id number] Univers 00:00:00 00:00:00 ise, SPECIALTY 350.1.13.10 ity of [place] C[place] 4.2.7.2.686 [place] C[place] AT [id number] Ri arianna SAENZ [address] [place] [address] 2021-10-12 2021-10-12 Outpatient MAURILIO GEE [facility] [id number] Univers 15:40:00 17:01:22 GLORIA MAURILIO itnancy [facility] 2021-10-12 2021-10-12 Office Gloria [facility] 1.2.840.114 [id number] Univers 15:40:00 17:01:22 Visit Maurilio [facility] 350.1.13.10 ity of [place] 4.2.7.2.686 [place] as PABLO?BLEA [id number] Ri arianna SAVAGE [address] [place] [address] MEDICAL OFFICE [facility] 2021-10-12 2021-10-12 Outpatient R GLORIAMAURILIO Barahona [facility] [id number] Univers 15:40:00 15:40:00 GL[facility]AMAURILIO [facility] 2021-10-12 2021-10-12 Patient [facility] 1.2.840.114 [id number] Univers 00:00:00 00:00:00 Secure Msg ise, SPECIALTY 350.1.13.10 ity of [place] 4.2.[place].2.686 [place] [id number] Ri arianna SAENZ [address] [place] [address] 2021-10-08 2021-10-08 Office [facility] 1.2.840.114 [id number] Univers 13:15:00 13:45:00 Visit ise, SPECIALTY 350.1.13.10 ity of [place] 4.2.7.2.686 [place] AT [id number] Ri arianna SAENZ [address] [place] [address] 2021-10-08 2021-10-08 Outpatient R [facility] [id number] Univers 13:15:00 13:15:00 ISE, [facility] 2021-10-08 2021-10-08 Refill [facility] 1.2.840.114 [id number] Univers 00:00:00 00:00:00 ise, SPECIALTY 350.1.13.10 ity of [place] 4.2.[place].2.686 [place] C[place] AT [id number] Ri dical [facility]CTORY 072 [facility] 2021-10-06 2021-10-06 Office [facility] 1.2.840.114 [id number] Univers 15:20:00 15:56:08 Visit Katherine PANIAGUA 350.1.13.10 ity of [facility] 4.2.7.2.686 [place] [facility] [id number] Ri dicbrigitte NAL 059 [facility] 2021-10-06 2021-10-06 Outpatient R CASPER, [facility] [id number] Univers 15:20:00 15:56:08 KATHERINE deepthi tricia [facility] 2021-10-06 2021-10-06 Outpatient R CASPER [facility] [id number] Univers 15:20:00 15:20:00 EVELIONIEVES deepthi [facility] 2021-10-05 2021-10-05 Transition JASPREET FierroMamadou 1.2.840.114 [id number] Univers 00:00:00 00:00:00 of Care Kade KINSEY 350.1.13.10 ity of [place] 4.2.7.2.686 [place] [id number] [facility] [address] [place] 2021-10-04 2021-10-04 Emergency [facility] [id number] Univers 08:52:00 15:11:00 REBEKAH lacey [facility] 2021-10-04 2021-10-[address] [id number] Univers 08:52:00 15:11:00 Rebekah PANIAGUA 350.1.13.10 ity of [facility] 4.2.7.2.[place] [id number] [facility] 084 Branch 2021-10-04 2021-10-04 Emergency X [facility] [id number] Univers 08:52:00 15:11:00 REBEKAH lacey [facility] 2021-10-02 2021-10-03 [facility] [id number] Univers 12:04:00 14:38:00 JASS lcaey [facility] 2021-10-02 2021-10-03 Emergency Gerson Abbott [facility] 1.2.840. [id number] Univers 12:04:00 14:38:00 Carlitos Jass PANIAGUA 350.1.13.10 ity of [place] 4.2.7.2.[place] C[place]US [id number] [facility] 081 [place] 2021-08-27 2021-08-27 [facility] [id number] Univers 15:30:00 15:30:00 JACE lacey [facility] 2021-08-27 2021-08-27 Imm/Inj Nurse, Adc Pob Immunization [facility] 1.2.840.114 [id number] Univers 14:24:04 14:24:15 Visit Jace Cannon 350.1.13 .10 ity of [place] 4[place]2.7.2.686 [place] [id number] Ri dical NAL 421 [facility] 2021-04-06 2021-04-06 Outpatient R CASPER [facility] [id number] Univers 15:20:00 15:20:00 KATHERINE lacey o f [facility] 2021-04-06 2021-04-06 Office [facility] 1.2.840.114 [id number] Univers 14:51:05 15:19:27 Visit Katherine [place] 350.1.13.10 ity of [place] 4[place]2.[place].2.686 [place] [phone] Ri dical nal 059 [facility] 2021-02-24 2021-02-24 Transition Karthikeyan Fierro 1.2.840.114 [id number] Univers 00:00:00 00:00:00 of Care Kade Kinsey 350.1.13.10 it[place] [phone] [facility] [address] 2021-02-24 2021-02-24 Transition Karthikeyan Fierro 1.2.840.114 [id number] 00:00:00 00:00:00 of Care Kade Kinsey [id number] [place] 4.2.7.[phone] [facility] 2021-02-23 2021-02-23 Urgent Provider, [facility] 1.2.840.114 [id number] Univers 15:56:41 16:41:19 Care Syed, [facility] 350.1.13.10 ity of [place] 4.2.7.2.686 [place] as Professio [phone] [address] Office [facility] 2021-02-23 2021-02-23 Urgent Provider, [facility] 1.2.051.130 [id number] 15:56:41 16:41:19 Care [facility] 350.1.13.10 Care [place] 4.2.7.2.686 Professio [phone] [address] 2021-02-23 2021-02-23 Outpatient R SYED [facility] [id number] Univers 16:00:00 16:00:00 [facility] 2021-02-23 2021-02-23 [facility] 1.2.840.114 [id number] Univers 00:00:00 00:00:00 [facility] 350.1.13.10 it y of [place] 4.2.7.2.686 [place] Professio [phone] [address] 2021-02-20 2021-02-21 Emergency Kassidy Del Toro [facility] 1.2.840.1 [id number] Univers 16:49:00 15:19:00 Aldo Breen 350.1.13.10 ity of [place] 4.2.7.2.686 [place] [facility] [phone] [address] 2021-02-20 2021-02-21 Outpatient X JAMSHID [facility] [id number] Univers 16:49:00 15:19:00 ALDO lacey [facility] 2021-02-20 2021-02-21 Emergency Kassidy Del Toro [facility] 1.2.840.1 14 [id number] 16:49:00 15:19:00 Aldo Breen 350.1.13.10 [place] 4.2.7.2.686 [place] [phone] [id number] 2021-02-11 2021-02-11 Office Deborah [facility] 1.2.840.114 [id number] Univers 12:54:32 13:57:[address] [facility] 350.1.13.10 ity of CL[place] [phone] [facility] [address] 2021-02-11 2021-02-[address] [facility] 1.2.840.114 [id number] 12:54:32 13:57:[address] [facility] 350.1.13.10 CLINICS 4.2.7.2.686 [phone] [facility] 2021-02-11 2021-02-11 Outpatient R [facility] [id number] Univers 13:30:00 13:30:00 ity of [facility] 2021-02-01 2021-02-01 Transition Karthikeyan Fierro 1.2.840.114 [id number] Univers 00:00:00 00:00:00 of Care Kade Kinsey 350.1.13.10 ity of [place] [phone] [facility] [address] 2021-01-30 2021-01-30 Emergency [facility] 1.2.840.114 [id number] Univers 15:25:00 17:12:00 Jumana Paniagua 350.1.13.10 ity [place] [phone] [facility] [address] 2021-01-29 2021-01-29 Transition Karthikeyan Fierro 1.2.840.114 [id number] Univers 00:00:00 00:00:00 of Care Kade Kinsey 350.1.13.10 ity of [place] 4.2.7.2.[place] [phone] [facility] [address] 2021-01-20 2021-01-28 Inpatient R DEBORAH [facility] CALLIE [id number] Univers 06:23:00 12:20:00 OBED lacey [facility] 2021-01-20 2021-01-28 Hospital Sri Cabrera 1.2.840.114 [id number] Univers 06:23:00 12:20:00 Encounter Obed Joseph Hilmar 350.1.13.10 ity of Hospital 4.2.7.2.686 [place] as [phone] [facility] [address] 2021-01-20 2021-01-20 Surgery Sri Cabrera 1.2.840.114 [id number] Univers 12:04:00 17:00:00 Obed Joseph Beryl 350.1.13.10 ity of [facility] 4.2.7.2.686 [place] as [phone] [facility] [address] 2021-01-20 2021-01-20 Orders Doctor DE SOUZA 1.2.840.114 [id number] Univers 00:00:00 00:00:00 Only Unassigned, BERYL 350.1.13.10 ity of [place] [facility] 4.2.7.2.686 [place] as [phone] [facility] [address] 2021-01-19 2021-01-19 Outpatient Sara CABRERA [facility] [id number] Univers 15:00:00 15:00:00 OBED lacey [facility] 2021-01-19 2021-01-19 Laboratory Only, Adc Test [facility] 1.2.840. 114 [id number] Univers 14:23:46 14:38:46 Only RadhaObed tsai Marito 350.1.13 .10 ity of [place] 4.2.7.2.686 [place] [facility] [phone] [facility] [address] 2021-01-19 2021-01-19 Orders Doctor DE SOUZA 1.2.840.114 [id number] Univers 00:00:00 00:00:00 Only Unassigned, BERYL 350.1.13.10 ity of [place] [facility] 4.2.7.2.686 [place] as [phone] [facility] [address] 2021-01-11 2021-01-11 AP Roberts 1.2.840.114 [id number] Univers 00:00:00 00:00:00 Management Juliana TESFAYE 350.1.13.10 ity of [facility] 4.2.7.2.686 [place] as [phone] [facility] [address] 2021-01-11 2021-01-11 Transition Karthikeyan Whiting 1.2.840.114 [id number] Univers 00:00:00 00:00:00 of Care Peggy Hsiehy 350.1.13.10 i ty of [place] 4[place]2.7.2.[place] [phone] [facility] [address] 2021-01-05 2021-01-09 Hospital SarahiksVadim 1.2.840. 114 [id number] Univers 20:49:00 20:10:00 Encounter Kuldip Sullivan 350.1.1 3.10 ity of [facility] 4.2.7.2.686 [place] [phone] [facility] [address] 2021-01-08 2021-01-08 Surgery [facility] 1.2.455.255 [id number] Univers 12:25:00 13:40:00 Monty ICAL 350.1.13.10 it y of [facility] 4.2.7.2.686 [place] as BLDG [phone] [facility] [address] 2021-01-05 2021-01-05 Emergency X [facility] [id number] Univers 20:49:00 20:49:00 VADIM ity of [facility] 2021-01-05 2021-01-05 Orders Doctor DE SOUZA 1.2.840.114 [id number] Univers 00:00:00 00:00:00 Only Unassigned, BERYL 350.1.13.10 ity of [place] [facility] 4.2.7.2.686 [place] as [phone] [facility] [address] 2020-12-20 2020-12-20 [facility] [id number] Univers 12:35:00 12:35:00 MARC ity of [facility] 2020-11-22 2020-11-22 Outpatient R LYUDMILA, [facility] [id number] Univers 12:15:00 12:15:00 MARC lacey [facility] Results Test Description Test Time Test Comments Results Result Comments Source CBC (INCLUDES AUTOMATED DIFFERENTIAL) 2022-12-29 14:01:00 Test Item Value Reference Range Interpretation Comme nts WBC (test code = WBC) 8.6 10\S\3/uL 4.5-11.0 RBC (test code = RBC) 4.19 10\S\6/uL 3.80-5.80 HGB (test code = HBG) 14.4 g/dL 14.0-18.0 HCT (test code = HCT) 42.3 % 35.0-46.0 MCV (test code = MCV) 101.0 fL 80.0-94.0 H MCH (test code = MCH) 34.4 pg 27.0-31.0 H MCHC (test code = MCHC) 34.0 g/dL 32.0-36.0 RDW (test code = RDW) 12.4 % 11.5-14.5 PLT (test code = PLT) 263 10\S\3/uL 130-400 MPV (test code = MPV) 10.3 fL 9.4-12.4 NEUTROP # (test code = NE#) 5.8 10\S\3/uL 2.0-8.0 LYMPH # (test code = LY#) 1.7 10\S\3/uL 1.2-4.0 MONOCYTE # (test code = MO#) 0.8 10\S\3/uL 0.0-1.1 EOSINOPH # (test code = EO#) 0.2 10\S\3/uL 0.0-0.7 BASOPHIL # (test code = BA#) 0.1 10\S\3/uL 0.0-0.3 IG # (test code = IG#) 0.05 10\S\3/uL 0.00-0.06 NRBC # (test code = NRBC#) 0.00 10\S\3/uL 0.00-0.01 NEUTROPH % (test code = NE%) 66.9 % 35.0-73.0 LYMPH % (test code = LY%) 19.4 % 20.0-55.0 L MONO % (test code = MO%) 9.7 % 2.5-10.0 EOSINOPH % (test code = EO%) 2.7 % 0.0-5.0 BASOPHIL % (test code = BA%) 0.7 % 0.0-2.0 IG % (test code = IG%) 0.6 % 0.0-0.8 NRBC% (test code = NRBC%) 0.0 % 0.0-0.2 MANDIFF (test code = MDIFF) NO NO RBC MORPH (test code = RBCMOR) NORMAL [id number] 07:57:00 Test Item Value Reference Range Interpretation Comments FOLATE (test code = 16.5 ng/mL See_Comment [Automa thuy message] The A75) system which ge nerated this result tra nsmitted reference range : >=5.5. The reference r jaswinder was not used to int erpret this result as normal/abnormal . B12 [id number] 07:44:00 Test Item Value Reference Range Interpretation Comments VIT B12 (test code = A60) 429.0 pg/mL 211.0-911.0 COMPREHENSIVE METABOLIC [id number] 07:36:00 Test Item Value Reference Range Interpretation Comments GLUCOSE (test code 98 mg/dL 75-100 = 06D) SODIUM (test code 141 mmol/L 136-145 = 01A) POTASSIUM (test 4.3 mmol/L 3.6-5.1 code = 01B) CHLORIDE (test 108 mmol/L 98-107 H code = 04A) CO2 (test code = 28 mmol/L 20-31 02A) ANION GAP (test 9.3 mmol/L code = ANG) BUN (test code = 15 mg/dL 9-23 05D) CREATININE (test 0.8 mg/dL 0.7-1.3 code = 03E) GFR (test code = 82 See_Comment L [Automated GFR) mL/min/1.73m\S\2 message] Th e system which generated this result transmit thuy reference range : >=90. The reference range was not used to interpret this result as normal/abnormal . GFR 95 See_Comment [Automated GEORGIAN (test mL/min/1.73m\S\2 message] The code = GFRAA) system which generated this result transmit thuy reference range : >=90. The reference range was not used to interpret this result as normal/abnormal . EGFR (test code = eGFR BY EGFR) CKD-EPI CALCULATION IS NOT RECOMMENDED FOR PATIENTS UNDER 18 YEARS OF AGE. BUN/CREA (test 12 09- code = BCR) CALCIUM (test code 8.7 mg/dL 8.3-10.6 = 09D) BILI TOTAL (test 0.7 mg/dL 0.2-1.0 code = 11A) PROTEIN (test code 6.9 g/dL 5.7-8.2 = 07D) ALBUMIN (test code 4.4 g/dL 3.2-4.8 = 08D) GLOBULIN (test 2.5 g/dL 1.5-3.8 code = GLB) ALB/GLOB (test 1.8 1.0-2.6 code = AGRR) ALK PHOS (test 59 IU/L 46-116 code = 35A) AST (test code = 18 IU/L See_Comment [Automated 30A) message] The system which generated this result transmit thuy reference range : <=33. The reference range was not used to interpret this result as normal/abnormal . ALT (test code = 9 IU/L 10-49 L 31A) CBC (INCLUDES AUTOMATED DIFFERENTIAL)2022-12-28 07:25:00 Test Item Value Reference Range Interpretation Comments WBC (test code = WBC) 9.9 10\S\3/uL 4.5-11.0 RBC (test code = RBC) 4.33 10\S\6/uL 3.80-5.80 HGB (test code = HBG) 14.7 g/dL 14.0-18.0 HCT (test code = HCT) 43.5 % 35.0-46.0 MCV (test code = MCV) 100.5 fL 80.0-94.0 H MCH (test code = MCH) 33.9 pg 27.0-31.0 H MCHC (test code = MCHC) 33.8 g/dL 32.0-36.0 RDW (test code = RDW) 12.2 % 11.5-14.5 PLT (test code = PLT) 274 10\S\3/uL 130-400 MPV (test code = MPV) 9.7 fL 9.4-12.4 NEUTROP # (test code = NE#) 7.5 10\S\3/uL 2.0-8.0 LYMPH # (test code = LY#) 1.3 10\S\3/uL 1.2-4.0 MONOCYTE # (test code = MO#) 0.9 10\S\3/uL 0.0-1.1 EOSINOPH # (test code = EO#) 0.2 10\S\3/uL 0.0-0.7 BASOPHIL # (test code = BA#) 0.0 10\S\3/uL 0.0-0.3 IG # (test code = IG#) 0.03 10\S\3/uL 0.00-0.06 NRBC # (test code = NRBC#) 0.00 10\S\3/uL 0.00-0.01 NEUTROPH % (test code = NE%) 76.2 % 35.0-73.0 H LYMPH % (test code = LY%) 12.8 % 20.0-55.0 L MONO % (test code = MO%) 8.9 % 2.5-10.0 EOSINOPH % (test code = EO%) 1.5 % 0.0-5.0 BASOPHIL % (test code = BA%) 0.3 % 0.0-2.0 IG % (test code = IG%) 0.3 % 0.0-0.8 NRBC% (test code = NRBC%) 0.0 % 0.0-0.2 MANDIFF (test code = MDIFF) NO NO RBC MORPH (test code = RBCMOR) NORMAL [id number] 06:39:00 Test Item Value Reference Range Interpretation Comments Hb A1C % (test code 5.0 % 3.8-6.4 = HBA) A1C % (test code = HbA1c (% ) A1C) Reference Range Normal <5.7 Prediabetes 5.7-6.4 Diabetic >=6.5 [id number] 06:37:00 Test Item Value Reference Range Interpretation Comments FOLATE (test code = 18.5 ng/mL See_Comment [Automa thuy message] The A75) system which ge nerated this result tra nsmitted reference range : >=5.5. The reference r jaswinder was not used to int erpret this result as normal/abnormal . [id number] 06:35:00 Test Item Value Reference Range Interpretation Comments PREALBUMIN (test code = 08E) 21 mg/dL 10-40 THYROID PANEL/SCREEN (TSH)2022-12-21 00:55:00 Test Item Value Reference Range Interpretation Comments TSH (test code = A57) 0.742 uIU/mL 0.550-4.780 B12 [id number] 00:53:00 Test Item Value Reference Range Interpretation Comments VIT B12 (test code = A60) 285.0 pg/mL 211.0-911.0 LIPID [id number] 00:51:00 Test Item Value Reference Range Interpretation Comments CHOLESTROL (test code 153 mg/dL 140-200 = 44A) TRIGLYCERI (test code 79 mg/dL See_Comment [Auto mated message] = 42B) The system [employer] generated this result transmitted ref erence range: <=149. T he reference range was not used to int erpret this result as normal/abnormal . HDL (test code = 83D) 42.3 mg/dL 40.0-60.0 LDL (test code = 34B) 136 mg/dL See_Comment H [Auto mated message] The system [employer] generated this result transmitted ref erence range: <=99. Th e reference range was not used to int erpret this result as normal/abnormal . CHL/HDL (test code = 3.6 0.0-3.4 H CHR) [id number] 00:51:00 Test Item Value Reference Range Interpretation Comments MAGNESIUM (test code = 48A) 2.1 mg/dL 1.6-2.6 LIPID [id number] 00:51:00 Test Item Value Reference Range Interpretation Comments CHOLESTROL (test code 154 mg/dL 140-200 = 44A) TRIGLYCERI (test code 79 mg/dL See_Comment [Auto mated message] = 42B) The system [employer] generated this result transmitted ref erence range: <=149. T he reference range was not used to int erpret this result as normal/abnormal . HDL (test code = 83D) 41.7 mg/dL 40.0-60.0 LDL (test code = 34B) 136 mg/dL See_Comment H [Auto mated message] The system [employer] generated this result transmitted ref erence range: <=99. Th e reference range was not used to int erpret this result as normal/abnormal . CHL/HDL (test code = 3.7 0.0-3.4 H CHR) AMMONIA [id number] 20:35:00 Test Item Value Reference Range Interpretation Comments AMMONIA (test code = 54A) 33 umol/L 11-[address] HEAD W/O [id number] 19:48:11 [facility] : 1940 Sex: MEXAM: CT HEAD WITH OUT IV CONTRASTLOCATION: [id number]: Unusual change in behaviorTECHNIQUE: Axial noncontrast CT images of the head were obtained. Axially acquired data were reformatted in coronal and sagittal planes for further analysis. This examination was performed according to our department of dose-optimization pr ogram, which includes a limited exposure control, adjustment of the mA and/or kV according to patient size, and/or use of iterative reconstruction technique.COMPARISON: None availableFINDINGS:No intracranial hemorrhage or extra-axial fluid collections identified. No space-occupying mass or midline shift. No hydrocephalus. 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 The globes are intact and symmetric in volume. 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 The validation standards normally enforced by the FDA and the [employer] the [employer] (CAP) are more stringent than those required for this test. Therefore, the result should be interpreted with caution and close attention to other clinical and epidemiological data COMPREHENSIVE METABOLIC [id number] 19:45:00 Test Item Value Reference Range Interpretation Comments GLUCOSE (test code 125 mg/dL 75-100 H = 06D) SODIUM (test code 139 mmol/L 136-145 = 01A) POTASSIUM (test 4.5 mmol/L 3.6-5.1 code = 01B) CHLORIDE (test 105 mmol/L 98-107 code = 04A) CO2 (test code = 28 mmol/L 20-31 02A) ANION GAP (test 10.5 mmol/L code = ANG) BUN (test code = 12 mg/dL 9-23 05D) CREATININE (test 0.9 mg/dL 0.7-1.3 code = 03E) GFR (test code = 78 See_Comment L [Automated GFR) mL/min/1.73m\S\2 message] Th e system which generated this result transmit thuy reference range : >=90. The reference range was not used to interpret this result as normal/abnormal . GFR 90 See_Comment [Automated GEORGIAN (test mL/min/1.73m\S\2 message] The code = GFRAA) system which generated this result transmit thuy reference range : >=90. The reference range was not used to interpret this result as normal/abnormal . EGFR (test code = eGFR BY EGFR) CKD-EPI CALCULATION IS NOT RECOMMENDED FOR PATIENTS UNDER 18 YEARS OF AGE. BUN/CREA (test 09-13 code = BCR) CALCIUM (test code 8.5 mg/dL 8.3-10.6 = 09D) BILI TOTAL (test 0.5 mg/dL 0.2-1.0 code = 11A) PROTEIN (test code 6.2 g/dL 5.7-8.2 = 07D) ALBUMIN (test code 4.0 g/dL 3.2-4.8 = 08D) GLOBULIN (test 2.2 g/dL 1.5-3.8 code = GLB) ALB/GLOB (test 1.8 1.0-2.6 code = AGRR) ALK PHOS (test 48 IU/L 46-116 code = 35A) AST (test code = 14 IU/L See_Comment [Automated 30A) message] The system which generated this result transmit thuy reference range : <=33. The reference range was not used to interpret this result as normal/abnormal . ALT (test code = <7 IU/L 10-49 L 31A) ALCOHOL BLOOD (ETOH)2022-12-20 19:45:00 Test Item Value Reference Range Interpretation Comments ETOH (test code = ETHANOL HALC) The result is to be used only for medical purposes ALCOHOL (test <10 mg/dL See_Comment [Automated me ssage] code = 56A) The system [employer] generated this result transmit thuy reference range : <=10. The refer ence range was not u sed to interpret th is result as normal/abnormal . DRUGS OF [id number] 19:41:00 Test Item Value Reference Range Interpretation Comments DRUG SCRN (test code = URINE DRUG HDOA) SCREEN This is an unconfirmed screening result and should not be used for non-medical purposes CANNABINOD (test code NEGATIVE NEGATIVE = 88C) AMPHETAMINE (test code NEGATIVE NEGATIVE = 84A) BENZODIAZP (test code POSITIVE NEGATIVE A = 86A) BARBITURAT (test code NEGATIVE NEGATIVE = 85A) OPIATES (test code = NEGATIVE NEGATIVE 92B) COCAINE (test code = NEGATIVE NEGATIVE 87A) PHENCYCLID (test code NEGATIVE NEGATIVE = 66A) METHADONE (test code = NEGATIVE NEGATIVE 64A) DOAH (test code = DOAH.) URINE DRUGSCREEN Cut-off values are as follows: Cannabinoids 50 ng/mL Cocaine 300 ng/mL Amphetamines 1000 ng/mL Phencyclidine 25 ng/mL Benzodiazepines 200 ng.mL Methadone 300 ng/mL Barbiturates 200 ng/mL Opiates 300 ng/mL CARDIAC [id number] 19:38:00 Test Item Value Reference Range Interpretation Comments TROPONIN I (test code = A84) 8.00 pg/mL 0.00-45.20 [id number] 19:31:00 Test Item Value Reference Range Interpretation Comments COLOR (test code = COLU) YELLOW YELLOW CLARITY (test code = CLA) CLEAR CLEAR GLUCOSE UR (test code = UA GLUCOSE) NEGATIVE NEGATIVE BILI UR (test code = BILE) NEGATIVE NEGATIVE KETONES UR (test code = PAULA) NEGATIVE NEGATIVE SP GRAVITY (test code = SPGR) 1.015 1.005-1.030 PH UR (test code = PH) 7.5 4.5-8.0 PROTEIN UR (test code = PU) NEGATIVE NEGATIVE UROBIL UR (test code = UROQ) 1.0 EU/dL 0.2-1.0 NITRITE UR (test code = NITRITE) NEGATIVE NEGATIVE BLOOD UR (test code = UA BLOOD) NEGATIVE NEGATIVE LEUK ES UR (test code = LEUK) NEGATIVE NEGATIVE CBC (INCLUDES AUTOMATED DIFFERENTIAL)2022-12-20 19:30:00 Test Item Value Reference Range Interpretation Comments WBC (test code = WBC) 6.6 10\S\3/uL 4.5-11.0 RBC (test code = RBC) 4.11 10\S\6/uL 3.80-5.80 HGB (test code = HBG) 13.8 g/dL 14.0-18.0 L HCT (test code = HCT) 41.4 % 35.0-46.0 MCV (test code = MCV) 100.7 fL 80.0-94.0 H MCH (test code = MCH) 33.6 pg 27.0-31.0 H MCHC (test code = MCHC) 33.3 g/dL 32.0-36.0 RDW (test code = RDW) 12.5 % 11.5-14.5 PLT (test code = PLT) 226 10\S\3/uL 130-400 MPV (test code = MPV) 9.8 fL 9.4-12.4 NEUTROP # (test code = NE#) 4.3 10\S\3/uL 2.0-8.0 LYMPH # (test code = LY#) 1.5 10\S\3/uL 1.2-4.0 MONOCYTE # (test code = MO#) 0.6 10\S\3/uL 0.0-1.1 EOSINOPH # (test code = EO#) 0.1 10\S\3/uL 0.0-0.7 BASOPHIL # (test code = BA#) 0.0 10\S\3/uL 0.0-0.3 IG # (test code = IG#) 0.02 10\S\3/uL 0.00-0.06 NRBC # (test code = NRBC#) 0.00 10\S\3/uL 0.00-0.01 NEUTROPH % (test code = NE%) 65.3 % 35.0-73.0 LYMPH % (test code = LY%) 23.3 % 20.0-55.0 MONO % (test code = MO%) 8.8 % 2.5-10.0 EOSINOPH % (test code = EO%) 1.8 % 0.0-5.0 BASOPHIL % (test code = BA%) 0.5 % 0.0-2.0 IG % (test code = IG%) 0.3 % 0.0-0.8 NRBC% (test code = NRBC%) 0.0 % 0.0-0.2 MANDIFF (test code = MDIFF) NO NO RBC MORPH (test code = RBCMOR) NORMAL
[2023-04-01 20:05] LABS: Specific Gravity 1.017 (1.005-1.030); Urine Bilirubin NEGATIVE (Negative); Urine Blood Negative (Negative); Urine Clarity Clear (Clear); Urine Color Yellow (Yellow); Urine Glucose NEGATIVE (Negative); Urine Protein NEGATIVE (Negative); Urine Urobilinogen Normal (Normal)
--- NOTE | 2023-04-01 20:47 | ER ---
Nurse's Notes [facility] Name: Cecil Butterfield Age: 82 yrs Sex: Male : 1940 Arrival Date: 04/01/2023 Time: 18:58 Bed 5 Private MD: Diagnosis: Dementia in other diseases classified elsewhere without behavioral disturbance Presentation: 04/01 19:06 Chief complaint: EMS states: [facility] staff reports unwitnessed fall, negative LOC. hb Also reports pt more confused than normal today. Hx of dementia. Skin tear noted to left elbow. Coronavirus screen: At this time, the client does not indicate any symptoms associated with coronavirus-19. Ebola Screen: No symptoms or risks identified at this time. Initial Sepsis Screen: Does the patient meet any 2 criteria? No. Patient's initial sepsis screen is negative. Does the patient have a suspected source of infection? No. Patient's initial sepsis screen is negative. Risk Assessment: Do you want to hurt yourself or someone else? Patient reports no desire to harm self or others. Onset of symptoms was April 01, 2023. Transition of care: patient was received from another setting of care (long-term care facility), [facility]. 19:06 Method Of Arrival: EMS: [facility] hb 19:06 Acuity: JAMSHID 2 hb Historical: - Allergies: 19:09 No Known Allergies; hb - Home Meds: 19:09 aspirin 81 mg Oral TbEC 1 tab once daily [Active]; atenolol 25 mg Oral tab 1 tab once hb daily [Active]; metoprolol tartrate 25 mg Oral tab [Active]; - PMHx: 19:09 Alzheimer's disease; Anemia; blood transfusion from bleeding ucler; CAD; CVA; GI Bleed; hb Hypertension; Ulcers; volvulus; - PSHx: 19:09 open heart surgery; hb Screenin:39 [facility] ED Fall Risk Assessment (Adult) History of falling in the last 3 months, jb4 including since admission Yes- single mechanical fall (1 pt) Confusion or Disorientation No (0 pts) Score/Fall Risk Level 0 - 2 = Low Risk Oriented to surroundings, Maintained a safe environment. Abuse screen: Denies threats or abuse. Nutritional screening: No deficits noted. Tuberculosis screening: No symptoms or risk factors identified. Assessment: 19:39 General: Appears in no apparent distress. comfortable, Behavior is calm, cooperative. jb4 Pain: Complains of pain in right elbow Pain does not radiate. Pain currently is 1 out of 10 on a pain scale. Quality of pain is described as sharp. Neuro: Castañeda Agitation-Sedation Scale (RASS): 0 - Alert and Calm Level of Consciousness is awake, alert, obeys commands, Oriented to person, place, situation. Cardiovascular: Patient's skin is warm and dry. Respiratory: Airway is patent Respiratory effort is even, unlabored, Respiratory pattern is regular, symmetrical. GI: No signs and/or symptoms were reported involving the gastrointestinal system. : No signs and/or symptoms were reported regarding the genitourinary system. EENT: No signs and/or symptoms were reported regarding the EENT system. Derm: Skin is pink, warm \T\ dry. Musculoskeletal: Circulation, motion, and sensation intact. Range of motion: intact in all extremities. Injury Description: Skin tear to right upper forearm. Dressing applied. 19:47 Reassessment: pt ambulated gait steady answers questions appropriately no allie distress kl respirations even non labored tolerated well. 20:10 Reassessment: Patient appears in no apparent distress at this time. Patient and/or jb4 family updated on plan of care and expected duration. Pain level reassessed. Patient is alert, oriented x 3, equal unlabored respirations, skin warm/dry/pink. 21:02 Reassessment: Patient appears in no apparent distress at this time. Patient and/or family updated on plan of care and expected duration. Pain level reassessed. Patient denies pain at this time. Vital Signs: 19:06 BP 147 / 85; Pulse 86; Resp 16; Temp 98.5(O); Pulse Ox 100% on R/A; Weight 68.04 kg; hb Height 5 ft. 10 in. ; Pain 0/10; 19:49 BP 137 / 84; Pulse 84; Resp 20 S; Pulse Ox 99% on R/A; kl 20:34 BP 137 / 80; Pulse 76; Resp 16; Pulse Ox 99% on R/A; jb4 21:03 BP 133 / 73; Pulse 78; Resp 18; Pulse Ox 100% on R/A; kl 19:06 Body Mass Index 21.52 (68.04 kg, 177.8 cm) hb 19:06 Pain Scale: Adult hb Danis Coma Score: 21:04 Eye Response: spontaneous(4). Motor Response: obeys commands(6). Verbal Response: kl oriented(5). Total: 15. ED Course: 19:01 Patient arrived in ED. sb4 19:02 Johann Townsend MD is Attending Physician. kdr 19:08 Triage completed. hb 19:09 Arm band placed on. hb 19:28 Leonard Sanchez, RN is Primary Nurse. jb4 19:39 Patient has correct armband on for positive identification. Bed in low position. Call jb4 light in reach. Side rails up X 1. Client placed on continuous cardiac and pulse oximetry monitoring. NIBP monitoring applied. 20:53 Made call to [facility] Emilia Dali will call back with [facility] for Transportation back to [address] 21:03 No provider procedures requiring assistance completed. Patient did not have IV access kl during this emergency room visit. Dressings: Adaptic X 1; right elbow Kerlix X 1; right elbow. Administered Medications: No medications were administered Medication: 19:39 VIS not applicable for this client. jb4 Intake: 21:04 PO: 120ml (Water); Total: 120ml. kl Output: 21:04 Urine: 400ml; Total: 400ml. kl Outcome: 20:46 Discharge ordered by . kdr 21:03 Discharged to home via wheelchair, with friend. kl 21:03 Condition: stable 21:03 Discharge instructions given to patient, Instructed on discharge instructions, follow up and referral plans. wound care, Demonstrated understanding of instructions, follow-up care, wound care. 21:04 Patient left the ED. kl Signatures: Pily Dobbs RN RN kl Rittger, Kevin, MD MD [facility] Khadra Williamson RN RN Leonard Sanchez RN RN jb4 Diana Sharpe, PA-C PA-C Irais Zambrano [facility]
--- NOTE | 2023-04-01 20:47 | EDPHYS ---
Physician Documentation [facility] Name: Cecil Butterfield Age: 82 yrs Sex: Male : 1940 Arrival Date: 04/01/2023 Time: 18:58 Bed 5 Private MD: ED Physician Johann Townsend HPI: 04/01 19:20 This 82 yrs old Male presents to ER via EMS with complaints of Fall Injury, Altered kdr Mental Status. 19:20 .EMS reports NH states they were giving the patient his medications and had stepped out kdr of the room and returned, the patient was on the floor. How he ended up on the floor is unknown. . Though the patient has a history of dementia, shelter reports that he may have been slightly more altered today than usual. On my initial assessment the patient is alert and orient to him to self and place. He is unable to directly describe how he arrived in the ED today. Patient has no complaints whatsoever and wants to go home. Nursing staff ambulated the patient around the department without any significant chest pain, shortness of breath, disorientation, or unsteadiness.. Historical: - Allergies: 19:09 No Known Allergies; hb - Home Meds: 19:09 aspirin 81 mg Oral TbEC 1 tab once daily [Active]; atenolol 25 mg Oral tab 1 tab once hb daily [Active]; metoprolol tartrate 25 mg Oral tab [Active]; - PMHx: 19:09 Alzheimer's disease; Anemia; blood transfusion from bleeding ucler; CAD; CVA; GI Bleed; hb Hypertension; Ulcers; volvulus; - PSHx: 19:09 open heart surgery; hb ROS: 19:25 Constitutional: Negative for fever, chills, and weight loss, Eyes: Negative for injury, kdr pain, redness, and discharge, ENT: Negative for injury, pain, and discharge, Neck: Negative for injury, pain, and swelling, Cardiovascular: Negative for chest pain, palpitations, and edema, Respiratory: Negative for shortness of breath, cough, wheezing, and pleuritic chest pain, Abdomen/GI: Negative for abdominal pain, nausea, vomiting, diarrhea, and constipation, Back: Negative for injury and pain, : Negative for injury, bleeding, discharge, and swelling, MS/Extremity: Negative for injury and deformity, Skin: Negative for injury, rash, and discoloration, Neuro: Negative for headache, weakness, numbness, tingling, and seizure activity. Psych: Negative for depression, anxiety, suicide ideation, homicidal ideation, and hallucinations, Allergy/Immunology: Negative for hives, rash, and allergies, Endocrine: Negative for neck swelling, polydipsia, polyuria, polyphagia, and marked weight changes, Hematologic/Lymphatic: Negative for swollen nodes, abnormal bleeding, and unusual bruising. Exam: 19:25 Constitutional: This is a well developed, well nourished patient who is awake, alert, kdr and in no acute distress. 19:25 Head/Face: Normocephalic, atraumatic. Eyes: Pupils equal round and reactive to light, extra-ocular motions intact. Lids and lashes normal. Conjunctiva and sclera are non-icteric and not injected. Cornea within normal limits. Periorbital areas with no swelling, redness, or edema. Neck: Trachea midline, no thyromegaly or masses palpated, and no cervical lymphadenopathy. Supple, full range of motion without nuchal rigidity, or vertebral point tenderness. No Meningismus. Chest/axilla: Normal chest wall appearance and motion. Nontender with no deformity. No lesions are appreciated. Cardiovascular: Regular rate and rhythm with a normal S1 and S2. No gallops, murmurs, or rubs. Normal PMI, no JVD. No pulse deficits. Respiratory: Lungs have equal breath sounds bilaterally, clear to auscultation and percussion. No rales, rhonchi or wheezes noted. No increased work of breathing, no retractions or nasal flaring. Abdomen/GI: Soft, non-tender, with normal bowel sounds. No distension or tympany. No guarding or rebound. No evidence of tenderness throughout. Back: No spinal tenderness. No costovertebral tenderness. Full range of motion. Skin: Warm, dry with normal turgor. Normal color with no rashes, no lesions, and no evidence of cellulitis. MS/ Extremity: Pulses equal, no cyanosis. Neurovascular intact. Full, normal range of motion. Neuro: Awake and alert, GCS 15, oriented to person, place, time, and situation. Cranial nerves II-XII grossly intact. Motor strength 5/5 in all extremities. Sensory grossly intact. Cerebellar exam normal. Normal gait. Psych: Awake, alert, with orientation to person, place and time. Behavior, mood, and affect are within normal limits. Vital Signs: 19:06 BP 147 / 85; Pulse 86; Resp 16; Temp 98.5(O); Pulse Ox 100% on R/A; Weight 68.04 kg; hb Height 5 ft. 10 in. ; Pain 0/10; 19:49 BP 137 / 84; Pulse 84; Resp 20 S; Pulse Ox 99% on R/A; kl 20:34 BP 137 / 80; Pulse 76; Resp 16; Pulse Ox 99% on R/A; jb4 21:03 BP 133 / 73; Pulse 78; Resp 18; Pulse Ox 100% on R/A; kl 19:06 Body Mass Index 21.52 (68.04 kg, 177.8 cm) hb 19:06 Pain Scale: Adult hb Danis Coma Score: 21:04 Eye Response: spontaneous(4). Motor Response: obeys commands(6). Verbal Response: kl oriented(5). Total: 15. MDM: 20:46 Patient medically screened. kdr 21:34 Data reviewed: vital signs, nurses notes, lab test result(s), radiologic studies. kdr 04/01 19:27 Order name: Urinalysis w/ reflexes; Complete Time: 20:29 kdr 04/01 19:27 Order name: Misc. Order: Clean and dress wound on right arm; Complete Time: 19:39 kdr Administered Medications: No medications were administered Disposition Summary: 04/01/23 20:46 Discharge Ordered Location: Home kdr Problem: new kdr Symptoms: have improved kdr Condition: Stable kdr Diagnosis - Dementia in other diseases classified elsewhere without behavioral disturbance kdr Followup: kdr - With: Private Physician - When: 2 - 3 days - Reason: If symptoms return, Further diagnostic work-up, Recheck today's complaints, Continuance of care, Re-evaluation by your physician Discharge Instructions: - Discharge Summary Sheet kdr - Dementia kdr - Fall Prevention in the Home, Adult, [id number] kdr Forms: - Medication Reconciliation Form kdr - Thank You Letter kdr - [email or web address] kdr Signatures: Dispatcher [employer] EDMS Johann Townsend MD MD kdr Khadra Williamson RN RN
[2023-04-01 21:32] VITALS: TEMP 98.5
[2023-04-01 21:35] VITALS: BP 133/73; O2SAT 100
== END 2023-04-01 21:04 | disposition home or self-care (01) ==
LOC: ER 18:58
DX: F03.90 Unspecified dementia, unspecified severity, without behavioral disturbance, psychotic disturbance, mood disturbance, and anxiety (principal)
CPT/HCPCS: 81003; 99284

== ENCOUNTER 2024-07-29 20:51 | Emergency (ER) | payer MEDICARE, BC ==
--- OUTSIDE RECORDS SUMMARY | 2024-07-29 20:56 | XMS REPORT | Continuity of Care Document ---
Author Name Unknown Address [address] [facility] [address] [place] [address] [facility] thconnect Address [address] [facility] [address] [place] [address] Care Team Providers Care Service Team Leader Name Role Phone ALDO DUKE Primary Care Physician UnavailOBED Melvin Attending Clinician Unavail Maurilio eLiva MD Attending Clinician [phone] DR KELLIE MEJIA Attending Clinician UnavailMAURILIO Luna Attending Clinician Unavail MAURILIO Leiva Attending Clinician Unavail able Doctor Unassigned, [place] Attending Clinician CAREN Groves Attending Clinician Unavaila Lauren Crystal Attending Clinician KATHERINE LANDA Attending Clinician Unavailable LAUREN KAHN Attending Clinician UnaKatherine Anguiano MD Attending Clinician [phone] Vadim ALMEIDA, Kade Alvarado Attending Clinician Unavail able REBEKAH VIZCARRA Attending Clinician Unavailvince Vizcarra MD, Rebekah Yousif Attending Clinician +[phone] JASS OLIVO Attending Clinician Unavailable Gerson Abbott MD Attending Clinician + Carlitos VENCES, Jass Attending Clinician + AJCE CANNON Attending Clinician Unavail able Nurse, Adc Pob Immunization Attending Clinician Unavailable Jace Cannon DO Attending Clinician [phone] Provider, [facility] Attending Clinician Un available Syed NICKEL PLATER, Tari Attending Clinician [phone] TARI SAHA Attending Clinician Unavailable Alverto NICKEL PLATER, Kassidy Attending Clinician [phone] Aldo Breen DO Attending Clinician [phone] ALDO BREEN Attending Clinician Unavailable Obed Cabrera MD Attending Clinician [phone] Ibsumi NICKEL PLATER, Jumana Johnson Attending Clinician [phone] Only, Adc Test Attending Clinician Unavailable Karel NICKEL PLATER, Juliana Gandhi Attending Clinician + Henok ALMEIDA, Peggy Adkins Attending Clinician + [phone] Vadim Tafoya MD Attending Clinician + [phone] Kuldip Sullivan MD Attending Clinician [phone] Yanely VENCES, Umang Attending Clinician [phone] Rodney VENCES, Monty Hooper Attending Clinician [phone] VADIM TAFOYA Attending Clinician Unavailable MARC COREAS Attending Clinician Unavailable OBED CABRERA Admitting Clinician Unavail able DR KELLIE MEJIA Admitting Clinician UnavailMAURILIO Luna Admitting Clinician Unavail able REBEKAH VIZCARRA Admitting Clinician UnavailJASS Lund Admitting Clinician Unavailable Jsas Olivo MD Admitting Clinician + Aldo Breen DO Admitting Clinician [phone] ALDO BREEN Admitting Clinician Unavailable Obed Cabrera MD Admitting Clinician Yanely VENCES, Umang Admitting Clinician [phone] Payers Payer Name Policy Type Policy Number Effective Date Expirati on Date Source MARIAN RAO [id number] 2017 00:00:00 MEDICARE PART A \T\ B [id number] 2004 00:00:00 0450 [id number] 2022 00:00:00 Problems Condition Name Condition Details Condition Category Status Onset Date Resolution Date Last Treatment Date Treating Clinician Comments Source Hematemesi s with nausea Hematemesi s with nausea Disease Active 10-08 00:00: 00 [facility] Abdominal pain, epigastric Abdominal pain, epigastric Disease Active 10-08 00:00: 00 [facility] Fatigue, unspecifie d type Fatigue, unspecifie d type Disease Active 10-08 00:00: 00 [facility] Urinary tract infection without hematuria, site unspecifie d Urinary tract infection without hematuria, site unspecifie d Disease Active 10-08 00:00: 00 [facility] Weight loss, unintentio nal Weight loss, unintentio nal Disease Active 10-08 00:00: 00 [facility] Indigestio n Indigestio n Disease Active 10-08 00:00: 00 [facility] Nausea and vomiting, intractabi lity of vomiting not specified, unspecifie d vomiting type Nausea and vomiting, intractabi lity of vomiting not specified, unspecifie d vomiting type Disease Active 10-02 00:00: 00 [facility] FRIED (dyspnea on exertion) FRIED (dyspnea on exertion) Disease Active 02-28 00:00: 00 [facility] Essential hypertensi on Essential hypertensi on Disease Active 02-28 00:00: 00 [facility] Dyslipidem ia Dyslipidem ia Disease Active 02-28 00:00: 00 [facility] S/P CABG x 3 S/P CABG x 3 Disease Active 428 00:00: 00 [facility] 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 Added automatic ally from request for surgery [id number] [facility] Chest pain Chest pain Disease Active 414 00:00: 00 [facility] NSTEMI (non-ST elevated myocardial infarction ) NSTEMI (non-ST elevated myocardial infarction ) Disease Active 414 00:00: 00 [facility] Iron deficiency anemia, unspecifie d iron deficiency anemia type Iron deficiency anemia, unspecifie d iron deficiency anemia type Disease Active 4 00:00: 00 Overview: Formattin g of this note might be different from the original. Added automatic ally from request for surgery [id number] [facility] Allergies, Adverse Reactions, Alerts Allergy Name Allergy Type Status Severity Reaction(s) Onset Date Inactive Date Treating Clinician Comments Source No Known Allergie s DA Active [facility] NO KNOWN ALLERGIE S Drug Class Active [facility] Social History Social Habit Start Date Stop Date Quantity Comments Source History SDOH Alcohol Frequency [facility] History SDOH Alcohol Std Drinks [facility] History SDOH Alcohol Binge [facility] History of tobacco use Cigarette Smoker [facility] Exposure to SARS-CoV-2 (event) 2022-05-03 00:00:00 2022-05-13 09:34:00 Not sure [facility] Cigarettes smoked current (pack per day) - Reported 2022-04-11 00:00:00 2022-04-11 00:00:00 [facility] Cigarette pack-years 2022-04-11 00:00:00 2022-04-11 00:00:00 [facility] Alcohol intake 2022-04-11 00:00:00 2022-04-11 00:00:00 Current drinker of alcohol (finding) [facility] Tobacco use and exposure 2022-04-11 00:00:00 2022-04-11 00:00:00 Smokeless tobacco non-user [facility] History of Social function 2021-01-20 00:00:00 2021-01-20 00:00:00 [facility] Alcohol Comment 2021-01-06 00:00:00 2021-01-06 00:00:00 socially [facility] Sex Assigned At 1940 00:00:00 1940 00:00:00 [facility] Smoking Status Start Date Stop Date Source Ex-smoker 2022-04-11 00:00:00 2022[facility]04[facility]11 [facility] Ordered Medication Name Filled Medication Name Start Date Stop Date Current Medication? Ordering Clinician Indication Dosage Frequency Signature (SIG) Comments Components Source rivastigmin e 9.5 mg/24 hour patch 01-17 00:00: 00 Yes 1{patch } Apply 1 Patch to skin daily. [facility] ondansetron (ZOFRAN) 8 mg tablet 10-08 00:00: 00 Yes [id number] 8mg Take 1 tablet by mouth every 8 (eight) hours as needed for N/V unresponsi ve to Promethazi ne. [facility] famotidine (PEPCID) 40 mg tablet 10-08 00:00: 00 Yes [id number] 40mg Take 1 tablet by mouth 2 (two) times daily. [facility] proMETHazin e 25 mg tablet 10-04 00:00: 00 Yes [id number] 25mg Take 1 tablet by mouth every 6 (six) hours as needed for Nausea and Vomiting (N/V). [facility] zolpidem 5 mg tablet 2020-09 00:00: 00 Yes 5mg Take 5 mg by mouth at bedtime. [facility] atorvastati n 80 mg tablet 04-06 00:00: 00 Yes [id number] 80mg Take 1 tablet by mouth at bedtime. [facility] clopidogreL 75 mg tablet 04-06 00:00: 00 Yes [id number] 75mg Take 1 tablet by mouth daily. [facility] metoprolol tartrate 25 mg tablet 04-06 00:00: 00 Yes [id number] 25mg Take 1 tablet by mouth every 12 (twelve) hours. [facility] mupirocin 2 % ointment 01-30 00:00: 00 Yes [id number] Apply to area(s) 3 (three) times daily. [facility] Immunizations Ordered Immunization Name Filled Immunization Name Date Status Comments Source SARS-COV-2 COVID-19 MODERNA 0.25ML BOOSTER VACCINE 2021-08-27 00:00:00 Completed [facility] SARS-COV-2 COVID-19 MODERNA 0.25ML BOOSTER VACCINE 2021-08-27 00:00:00 Completed [facility] SARS-COV-2 COVID-19 MODERNA 0.25ML BOOSTER VACCINE 2021-08-27 00:00:00 Completed [facility] SARS-COV-2 COVID-19 MODERNA VACCINE 2020-12-20 00:00:00 Completed [facility] SARS-COV-2 COVID-19 MODERNA VACCINE 2020-12-20 00:00:00 Completed [facility] SARS-COV-2 COVID-19 MODERNA 12+ YRS VACCINE 2020-12-20 00:00:00 Completed [facility] SARS-COV-2 COVID-19 MODERNA VACCINE 2020-11-22 00:00:00 Completed [facility] SARS-COV-2 COVID-19 MODERNA VACCINE 2020-11-22 00:00:00 Completed [facility] SARS-COV-2 COVID-19 MODERNA 12+ YRS VACCINE 2020-11-22 00:00:00 Completed [facility] Influenza Virus Vaccine 2020-08-08 00:00:00 Completed [facility] Influenza Virus Vaccine 2020-08-08 00:00:00 Completed [facility] Influenza Virus Vaccine 2020-08-08 00:00:00 Completed [facility] SARS-COV-2 COVID-19 MODERNA 12+ YRS VACCINE Unknown Completed [facility] Influenza Virus Vaccine Unknown Completed [facility] SARS-COV-2 COVID-19 MODERNA 0.25ML BOOSTER VACCINE Unknown Completed [facility] SARS-COV-2 COVID-19 MODERNA 12+ YRS VACCINE Unknown Completed [facility] Influenza Virus Vaccine Unknown Completed [facility] SARS-COV-2 COVID-19 MODERNA 0.25ML BOOSTER VACCINE Unknown Completed [facility] SARS-COV-2 COVID-19 MODERNA 12+ YRS VACCINE Unknown Completed [facility] Influenza Virus Vaccine Unknown Completed [facility] SARS-COV-2 COVID-19 MODERNA 0.25ML BOOSTER VACCINE Unknown Completed [facility] SARS-COV-2 COVID-19 MODERNA 12+ YRS VACCINE Unknown Completed [facility] Influenza Virus Vaccine Unknown Completed [facility] SARS-COV-2 COVID-19 MODERNA 0.25ML BOOSTER VACCINE Unknown Completed [facility] SARS-COV-2 COVID-19 MODERNA 12+ YRS VACCINE Unknown Completed [facility] Influenza Virus Vaccine Unknown Completed [facility] SARS-COV-2 COVID-19 MODERNA 0.25ML BOOSTER VACCINE Unknown Completed [facility] Vital Signs Vital Name Observation Time Observation Value Comments S ource Height 2022-12-20 18:19:00 157.48 CM Weight 2022-12-20 18:19:00 56.69 KG Systolic blood pressure 2022-05-13 14:52:00 122 mm[Hg] [facility] Diastolic blood pressure 2022-05-13 14:52:00 77 mm[Hg] [facility] Heart rate 2022-05-13 14:52:00 98 /min Un[facility] Body height 2022-05-13 14:52:00 154.9 cm [facility] weight 2022-05-13 14:52:00 46.72 kg [facility] BMI 2022-05-13 14:52:00 19.46 kg/m2 [facility] Oxygen saturation in Arterial blood by Pulse oximetry 2022-05-13 14:52:00 98 /min [facility] Procedures Procedure Date / Time Performed Performing Clinician Source AUTHORIZATION FOR RELEASE OF PHI 2022-05-13 05:01:00 Doctor Unassigned, [place] [facility] Encounters Start Date/Time End Date/Time Encounter Type Admission Type Attending Clinicians Care Facility Care Department Encounter ID Source 2021-07-25 22:08:24 Emergency [facility] [id number] [facility] 2021-07-25 17:56:31 Emergency [facility] [id number] [facility] 2021-07-25 15:38:15 Inpatient OBED CARDOZA [email or web address] SCT [id number] [facility] 2023-11-01 00:00:00 2023-11-01 00:00:00 Telephone Maurilio Love [facility] 1.2.840.114 350.1.13.10 4.2.7.2.686 [id number] [facility] 2022-12-20 23:56:00 2023-01-02 19:51:00 Inpatient E KELLIE MEJIA [facility] SCU [id number] [facility] 2022-12-20 18:06:00 2022-12-20 18:06:00 Emergency E [facility] E[facility] [id number] [facility] 2022-12-07 00:00:00 2022-12-07 00:00:00 Telephone Gloria Maurilio [facility] 1.2.840.114 350.1.13.10 4.2.7.2.686 [id number] [facility] 2022-05-13 09:40:00 2022-05-13 10:12:21 Office Visit Gloria Maurilio [facility] 1..840.114 350.1.13.10 4.2.7.2.686 [id number] [facility] 2022-05-13 09:40:00 2022-05-13 10:12:21 Outpatient Sara GLORIAMAURILIO CORTES GLORIA MAURILIO [facility] [id number] [facility] 2022-05-13 09:40:00 2022-05-13 09:40:00 Outpatient MAURILIO GEE GLORIA MAURILIO [facility] [id number] [facility] 2022-05-13 00:00:00 2022-05-13 00:00:00 Orders Only Doctor Unassigned, [place] [facility] 1..840.114 350.1.13.10 4.2.7.2.686 [id number] [facility] 2022-05-05 14:16:35 2022-05-05 23:59:00 Hospital Encounter Maurilio Love [facility] 1..840.114 350.1.13.10 4.2.7.2.686 [id number] [facility] 2022-05-05 14:14:22 2022-05-05 14:15:00 Outpatient MAURILIO GEE GLORIAMAURILIO [facility] [id number] [facility] 2022-05-05 14:14:22 2022-05-05 14:15:00 Hospital Encounter Maurilio Love [facility] 1..840.114 350.1.13.10 4.2.7.2.686 [id number] [facility] 2022-05-05 00:00:00 2022-05-05 00:00:00 Outpatient MAURILIO GEE HOWARD [facility] [id number] [facility] 2022-05-05 00:00:00 2022-05-05 00:00:00 Orders Only Doctor Unassigned, [place] [facility] 1.840.114 350.1.13.10 4.2.7.2.686 [id number] [facility] 2022-04-21 00:00:00 2022-04-21 00:00:00 Patient Secure Msg Doctor Unassigned, [place] [facility] 1..840.114 350.1.13.10 4.2.7.2.686 [id number] [facility] 2022-04-11 16:20:00 2022-04-11 17:07:36 Office Visit Maurilio Love [facility] 1..840.114 350.1.13.10 4.2.7.2.686 [id number] [facility] 2022-04-11 16:20:00 2022-04-11 17:07:36 Outpatient MAURILIO GEE [facility] [id number] [facility] 2022-04-11 16:20:00 2022-04-11 16:20:00 Outpatient MAURILIO GEE [facility] [id number] [facility] 2022-03-31 11:11:45 2022-03-31 23:59:00 Outpatient MAURILIO GEE [facility] [id number] [facility] 2022-03-31 11:11:45 2022-03-31 23:59:00 Hospital Encounter Maurilio Love [facility] 1..840.114 350.1.13.10 4.2.7.2.686 [id number] [facility] 2022-03-30 14:30:00 2022-03-30 14:30:00 Outpatient CAREN CARREON [facility] [id number] [facility] 2022-03-16 00:00:00 2022-03-16 00:00:00 Patient Secure Msg Maurilio Love [facility] 1.2.840.114 350.1.13.10 4.2.7.2.686 [id number] [facility] 2022-03-16 00:00:00 2022-03-16 00:00:00 Patient Secure Msg Doctor Unassigned, [place] [facility] 1.2.840.114 350.1.13.10 4.2.7.2.686 [id number] [facility] 2022-02-16 00:00:00 2022-02-16 00:00:00 Patient Secure Msg Doctor Unassigned, [place] [facility] 1.2.840.114 350.1.13.10 4.2.7.2.686 [id number] [facility] 2022-02-11 00:00:00 2022-02-11 00:00:00 Patient Secure Msg Doctor Unassigned, [place] [email or web address] 1.2.840.114 350.1.13.10 4.2.7.2.686 [id number] [facility] 2022-02-02 00:00:00 2022-02-02 00:00:00 Patient Secure Msg Lauren Spencer [facility] [[email or web address] 1..840.114 350.1.13.10 4.2.7.2.686 [id number] [facility] 2022-01-26 13:00:00 2022-01-26 13:00:00 Outpatient KATHERINE MCGUIRE [facility] [id number] [facility] 2022-01-15 00:00:00 2022-01-15 00:00:00 Refill GloriaMaurilio de oliveira [facility] 1.2.840.114 350.1.13.10 4.2.7.2.686 [id number] [facility] 2022-01-11 11:20:00 2022-01-11 12:15:14 Outpatient MAURILIO GEE [facility] [id number] [facility] 2022-01-11 11:20:00 2022-01-11 12:15:14 Office Visit GloriaMaurilio [facility] 1.2.840.114 350.1.13.10 4.2.7.2.686 [id number] [facility] 2022-01-04 00:00:00 2022-01-04 00:00:00 Telephone Maurilio Love [facility] 1.2.840.114 350.1.13.10 4.2.7.2.686 [id number] [facility] 2021-10-31 00:00:00 2021-10-31 00:00:00 Refill Jeffry kim [facility] 1.2.840.114 350.1.13.10 4.2.7.2.686 [id number] [facility] 2021-10-20 00:00:00 2021-10-20 00:00:00 Refill Jeffry kim [facility] 1.2.840.114 350.1.13.10 4.2.7.2.686 [id number] [facility] 2021-10-12 15:40:00 2021-10-12 17:01:22 Outpatient MAURILIO GEE [facility] [id number] [facility] 2021-10-12 15:40:00 2021-10-12 17:01:22 Office Visit Maurilio Love [facility] 1.84.114 350.1.13.10 4.2.7.2.686 [id number] [facility] 2021-10-12 15:40:00 2021-10-12 15:40:00 Outpatient Sara GLORIAMAURILIO [facility] [id number] [facility] 2021-10-12 00:00:00 2021-10-12 00:00:00 Patient [facility] 1.84.114 350.1.13.10 4.2.7.2.686 [id number] [facility] 2021-10-08 13:15:00 2021-10-08 13:45:00 Office Visit Ariana Spencerbeth [facility] [[email or web address] 1.84.114 350.1.13.10 4.2.7.2.686 [id number] [facility] 2021-10-08 13:15:00 2021-10-08 13:15:00 Outpatient R LAUREN SPENCER [facility] [id number] [facility] 2021-10-08 00:00:00 2021-10-08 00:00:00 Refill Jeffry kim [facility] 1.84.114 350.1.13.10 4.2.7.2.686 [id number] [facility] 2021-10-06 15:20:00 2021-10-06 15:56:08 [facility] 1.84.114 350.1.13.10 4.2.7.2.686 [id number] [facility] 2021-10-06 15:20:00 2021-10-06 15:56:08 [id number] 2021-10-06 15:20:00 2021-10-06 15:20:00 Outpatient Sara LANDA [facility] [id number] [facility] 2021-10-05 00:00:00 2021-10-05 00:00:00 Transition of Care Kade Fierro [facility] 1.840.114 350.1.13.10 4.2.7.2.686 [id number] [facility] 2021-10-04 08:52:00 2021-10-04 15:11:00 Emergency X REBEKAH VIZCARRA [facility] [[email or web address] ERT [id number] [facility] 2021-10-04 08:52:00 2021-10-04 15:11:00 Emergency Rebekah Vizcarra [facility] 1.84.114 350.1.13.10 4.2.7.2.686 [id number] [facility] 2021-10-04 08:52:00 2021-10-04 15:11:00 Emergency REBEKAH CALLES [facility] [[email or web address]] ERT [id number] [facility] 2021-10-02 12:04:00 2021-10-03 14:38:00 Outpatient JASS MCCULLOUGH [facility] [[email or web address] FIDEL [id number] [facility] 2021-10-02 12:04:00 2021-10-03 14:38:00 Emergency Gerson Abbott Yaman [facility] 1.2.840.114 350.1.13.10 4.2.7.2.686 [id number] [facility] 2021-08-27 15:30:00 2021-08-27 15:30:00 Outpatient R DAVISALEXS [facility] [id number] [facility] 2021-08-27 14:24:04 2021-08-27 14:24:15 Imm/Inj Visit Nurse, Denise Yepez Immunizatio laine CannonJace Brian [facility] 1.114 350.1.13.10 4.2.7.2.686 [id number] [facility] 2021-04-06 15:20:00 2021-04-06 15:20:00 [facility] [id number] 2021-04-06 14:51:05 2021-04-06 15:19:27 Office Visit [facility] Building 1.114 350.1.13.10 4.2.7.2.686 [id number] [facility] 2021-02-24 00:00:00 2021-02-24 00:00:00 Transition of Care Kade Fierro 1.20.114 350.1.13.10 4.2.7.2.686 [id number] [facility] 2021-02-24 00:00:00 2021-02-24 00:00:00 Transition of Care Kade Fierro 1.2840.114 350.1.13.10 4.2.7.2.686 [id number] 2021-02-23 15:56:41 2021-02-23 16:41:19 Urgent Care Provider, [facility] Tari Saha [facility] Office Building One 1.114 350.1.13.10 4.2.7.2.686 [id number] [facility] 2021-02-23 15:56:41 2021-02-23 16:41:19 Urgent Care Provider, [facility] 1.114 350.1.13.10 4.2.7.2.686 [id number] 2021-02-23 16:00:00 2021-02-23 16:00:00 Outpatient TARI PARRA [facility] [id number] [facility] 2021-02-23 00:00:00 2021-02-23 00:00:[address] [facility] Office Building One 1.114 350.1.13.10 4.2.7.2.686 [id number] [id number] [facility] 2021-02-20 16:49:00 2021-02-21 15:19:00 Emergency Kassidy Del Toro [facility] 1..114 350.1.13.10 4.2.7.2.686 [id number] [facility] 2021-02-20 16:49:00 2021-02-21 15:19:00 Outpatient ALDO TEJADA [facility] [id number] [facility] 2021-02-20 16:49:00 2021-02-21 15:19:00 Emergency Kassidy Del Toro [facility] 1..114 350.1.13.10 4.2.7.2.686 [id number] 2021-02-11 12:54:32 2021-02-11 13:57:50 Office Visit Obed Cabrera [facility] 1.114 350.1.13.10 4.2.7.2.686 [id number] [facility] 2021-02-11 12:54:32 2021-02-11 13:57:50 Office Visit Obed Cabrera [facility] 1.2.840.114 350.1.13.10 4.2.7.2.686 [id number] 2021-02-11 13:30:00 2021-02-11 13:30:00 Outpatient R [facility] [id number] [facility] 2021-02-01 00:00:00 2021-02-01 00:00:00 Transition of Care Kade Fierro 1.2.840.114 350.1.13.10 4.2.7.2.686 [id number] [facility] 2021-01-30 15:25:00 2021-01-30 17:12:00 Emergency Jumana Diallo [facility] 1.2.840.114 350.1.13.10 4.2.7.2.686 [id number] [facility] 2021-01-29 00:00:00 2021-01-29 00:00:00 Transition of Care Kade Fierro 1.2.840.114 350.1.13.10 4.2.7.2.686 [id number] [facility] 2021-01-20 06:23:00 2021-01-28 12:20:00 Inpatient R OBED CABRERA [facility] [[email or web address]] CALLIE [id number] [facility] 2021-01-20 06:23:00 2021-01-28 12:20:00 Hospital Encounter Obed Cabrera [facility] 1.2.840.114 350.1.13.10 4.2.7.2.686 [id number] [facility] 2021-01-20 12:04:00 2021-01-20 17:00:00 Surgery Obed Cabrera [facility] 1.2.840.114 350.1.13.10 4.2.7.2.686 [id number] [facility] 2021-01-20 00:00:00 2021-01-20 00:00:00 Orders Only Doctor Unassigned, [place] [facility] 1.2.840.114 350.1.13.10 4.2.7.2.686 [id number] [facility] 2021-01-19 15:00:00 2021-01-19 15:00:00 Outpatient R OBED CABRERA [facility] [id number] [facility] 2021-01-19 14:23:46 2021-01-19 14:38:46 Laboratory Only Only, Adc Test Obed Cabrera [facility] 1.2.840.114 350.1.13.10 4.2.7.2.686 [id number] [facility] 2021-01-19 00:00:00 2021-01-19 00:00:00 Orders Only Doctor Unassigned, [place] [facility] 1.2.840.114 350.1.13.10 4.2.7.2.686 [id number] [facility] 2021-01-11 00:00:00 2021-01-11 00:00:00 Case Management Juliana Vinson [facility] 1.2.840.114 350.1.13.10 4.2.7.2.686 [id number] [facility] 2021-01-11 00:00:00 2021-01-11 00:00:00 Transition of Care Peggy Whiting 1.2.840.114 350.1.13.10 4.2.7.2.686 [id number] [facility] 2021-01-05 20:49:00 2021-01-09 20:10:00 Hospital Encounter Vadim Tafoya, Kuldip Gil Abu-Angelia h, Umang [facility] 1.2.840.114 350.1.13.10 4.2.7.2.686 [id number] [facility] 2021-01-08 12:25:00 2021-01-08 13:40:00 Surgery Rodney Montytwin Hooper [facility] [[email or web address] [employer] [facility] 1.2.840.114 350.1.13.10 4.2.7.2.686 [id number] [facility] 2021-01-05 20:49:00 2021-01-05 20:49:00 Emergency X VADIM TAFOYA [facility] [[email or web address]] ERT [id number] [facility] 2021-01-05 00:00:00 2021-01-05 00:00:00 Orders Only Doctor Unassigned, [place] [facility] 1.2.840.114 350.1.13.10 4.2.7.2.686 [id number] [facility] 2020-12-20 12:35:00 2020-12-20 12:35:00 Outpatient MARC ANDERSON [facility] [id number] [facility] 2020-11-22 12:15:00 2020-11-22 12:15:00 Outpatient MARC ANDERSON [facility] [id number] [facility] Results Test Description Test Time Test Comments Results Result Co mments Source [id number] 07:57:00* Test Item Value Reference Range Interpretation Comme nts FOLATE (test code = A75) 16.5 ng/mL See_Comment [Automated ASSIAa ge] The system which generated this result transmitted reference range: >=5.5. The reference range was not used to interpret this result as normal/abnormal. B12 [id number] 07:44:00* Test Item Value Reference Range Interpretation Comme nts VIT B12 (test code = A60) 429.0 pg/mL 211.0-911.0 COMPREHENSIVE METABOLIC [id number] 07:36:00* Test Item Value Reference Range Interpretation Comme nts GLUCOSE (test code = 06D) 98 mg/dL 75-100 SODIUM (test code = 01A) 141 mmol/L 136-145 POTASSIUM (test code = 01B) 4.3 mmol/L 3.6-5.1 CHLORIDE (test code = 04A) 108 mmol/L 98-107 H CO2 (test code = 02A) 28 mmol/L 20-31 ANION GAP (test code = ANG) 9.3 mmol/L BUN (test code = 05D) 15 mg/dL 9-23 CREATININE (test code = 03E) 0.8 mg/dL 0.7-1.3 GFR (test code = GFR) 82 mL/min/1.73m\S\2 See_Comment L [Automated message] The system which generated this result transmitted reference range: >=90. The reference range was not used to interpret this result as normal/abnormal. GFR (test code = GFRAA) 95 mL/min/1.73m\S\2 See_Comment [Automated message] The system which generated this result transmitted reference range: >=90. The reference range was not used to interpret this result as normal/abnormal. EGFR (test code = EGFR) eGFR BY CKD-EPI CALCULATION IS NOT RECOMMENDED FOR PATIENTS UNDER 18 YEARS OF AGE. BUN/CREA (test code = BCR) 19 12-20 CALCIUM (test code = 09D) 8.7 mg/dL 8.3-10.6 BILI TOTAL (test code = 11A) 0.7 mg/dL 0.2-1.0 PROTEIN (test code = 07D) 6.9 g/dL 5.7-8.2 ALBUMIN (test code = 08D) 4.4 g/dL 3.2-4.8 GLOBULIN (test code = GLB) 2.5 g/dL 1.5-3.8 ALB/GLOB (test code = AGRR) 1.8 1.0-2.6 ALK PHOS (test code = 35A) 59 IU/L 46-116 AST (test code = 30A) 18 IU/L See_Comment [Automated message] The system which generated this result transmitted reference range: <=33. The reference range was not used to interpret this result as normal/abnormal. ALT (test code = 31A) 9 IU/L 10-49 L CBC (INCLUDES AUTOMATED DIFFERENTIAL)2022-12-28 07:25:00* Test Item Value Reference Range Interpretation Comme nts WBC (test code = WBC) 9.9 10\S\3/uL [...] RBC MORPH (test code = RBCMOR) NORMAL [id number] 06:39:00* Test Item Value Reference Range Interpretation Comme [facility] Hb A1C % (test code = HBA) 5.0 % 3.8-6.4 A1C % (test code = A1C) HbA1c (% ) Reference Range Normal <5.7 Prediabetes 5.7-6.4 Diabetic >=6.5 [id number] 06:37:00* Test Item Value Reference Range Interpretation Comme [facility] FOLATE (test code = A75) 18.5 ng/mL See_Comment [Automated Contatta] The system which generated this result transmitted reference range: >=5.5. The reference range was not used to interpret this result as normal/abnormal. [id number] 06:35:00* Test Item Value Reference Range Interpretation Comme [facility] PREALBUMIN (test code = 08E) 21 mg/dL 10-40 THYROID PANEL/SCREEN (TSH)2022-12-21 00:55:00* Test Item Value Reference Range Interpretation Comme [facility] TSH (test code = A57) 0.742 uIU/mL 0.550-4.780 B12 [id number] 00:53:00* Test Item Value Reference Range Interpretation Comme [facility] VIT B12 (test code = A60) 285.0 pg/mL 211.0-911.0 LIPID [id number] 00:51:00* Test Item Value Reference Range Interpretation Comme nts CHOLESTROL (test code = 44A) 153 mg/dL 140-200 TRIGLYCERI (test code = 42B) 79 mg/dL See_Comment [Automated Contatta] The system which generated this result transmitted reference range: <=149. The reference range was not used to interpret this result as normal/abnormal. HDL (test code = 83D) 42.3 mg/dL 40.0-60.0 LDL (test code = 34B) 136 mg/dL See_Comment H [A utomated message] The system which generated this result transmitted reference range: <=99. The reference range was not used to interpret this result as normal/abnormal. CHL/HDL (test code = CHR) 3.6 0.0-3.4 H [id number] 00:51:00* Test Item Value Reference Range Interpretation Comme nts MAGNESIUM (test code = 48A) 2.1 mg/dL 1.6-2.6 AMMONIA [id number] 20:35:00* Test Item Value Reference Range Interpretation Comme nts AMMONIA (test code = 54A) 33 umol/L 11-[address] HEAD W/O [id number] 19:48:11 [facility] : 1940 Sex: MEXAM: CT HEAD WI THOUT IV CONTRASTLOCATION: [id number]: Unusual change in behaviorTECHNIQUE: Axial noncontrast CT images of the head were obtained. Axially acquired data were reformatted in coronal and sagittal planes for further analysis. This examination was performed according to our department of dose-optimization program, which includes a limited exposure control, adjustment of the mA and/or kV according to patient size, and/or use of iterative reconstruction technique.COMPARISON: None availableFINDINGS:Nointracranial hemorrhage or extra- axial fluid collections identified. No space-occupying mass or midline shift. No hydrocephalus. 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 The validation standards normally enforced by the FDA and the [employer] (CAP) are more stringent than those required for this test. Therefore, the result should be interpreted with caution and close attention to other clinical and epidemiological data COMPREHENSIVE METABOLIC [id number] 19:45:00* Test Item Value Reference Range Interpretation Comme nts GLUCOSE (test code = 06D) 125 mg/dL 75-100 H SODIUM (test code = 01A) 139 mmol/L 136-145 POTASSIUM (test code = 01B) 4.5 mmol/L 3.6-5.1 CHLORIDE (test code = 04A) 105 mmol/L 98-107 CO2 (test code = 02A) 28 mmol/L 20-31 ANION GAP (test code = ANG) 10.5 mmol/L BUN (test code = 05D) 12 mg/dL 9-23 CREATININE (test code = 03E) 0.9 mg/dL 0.7-1.3 GFR (test code = GFR) 78 mL/min/1.73m\S\2 See_Comment L [Automated message] The system which generated this result transmitted reference range: >=90. The reference range was not used to interpret this result as normal/abnormal. GFR (test code = GFRAA) 90 mL/min/1.73m\S\2 See_Comment [Automated message] The system which generated this result transmitted reference range: >=90. The reference range was not used to interpret this result as normal/abnormal. EGFR (test code = EGFR) eGFR BY CKD-EPI CALCULATION IS NOT RECOMMENDED FOR PATIENTS UNDER 18 YEARS OF AGE. BUN/CREA (test code = BCR) 13 12-20 CALCIUM (test code = 09D) 8.5 mg/dL 8.3-10.6 BILI TOTAL (test code = 11A) 0.5 mg/dL 0.2-1.0 PROTEIN (test code = 07D) 6.2 g/dL 5.7-8.2 ALBUMIN (test code = 08D) 4.0 g/dL 3.2-4.8 GLOBULIN (test code = GLB) 2.2 g/dL 1.5-3.8 ALB/GLOB (test code = AGRR) 1.8 1.0-2.6 ALK PHOS (test code = 35A) 48 IU/L 46-116 AST (test code = 30A) 14 IU/L See_Comment [Automated message] The system which generated this result transmitted reference range: <=33. The reference range was not used to interpret this result as normal/abnormal. ALT (test code = 31A) <7 IU/L 10-49 L ALCOHOL BLOOD (ETOH)2022-12-20 19:45:00* Test Item Value Reference Range Interpretation Comme nts ETOH (test code = HALC) ETHANOL The result is to be used only for medical purposes ALCOHOL (test code = 56A) <10 mg/dL See_Comment [Automated messa ge] The system which generated this result transmitted reference range: <=10. The reference range was not used to interpret this result as normal/abnormal. DRUGS OF [id number] 19:41:00* Test Item Value Reference Range Interpretation Comme [facility] DRUG SCRN (test code = HDOA) URINE DRUG SCREEN This is an unconfirmed screening result and should not be used for non-medical purposes CANNABINOD (test code = 88C) NEGATIVE NEGATIVE AMPHETAMINE (test code = 84A) NEGATIVE NEGATIVE BENZODIAZP (test code = 86A) POSITIVE NEGATIVE A BARBITURAT (test code = 85A) NEGATIVE NEGATIVE OPIATES (test code = 92B) NEGATIVE NEGATIVE COCAINE (test code = 87A) NEGATIVE NEGATIVE PHENCYCLID (test code = 66A) NEGATIVE NEGATIVE METHADONE (test code = 64A) NEGATIVE NEGATIVE DOAH (test code = DOAH.) URINE DRUGSCREEN Cut-off values are as follows: Cannabinoids 50 ng/mL Cocaine 300 ng/mL Amphetamines 1000 ng/mL Phencyclidine 25 ng/mL Benzodiazepines 200 ng.mL Methadone 300 ng/mL Barbiturates 200 ng/mL Opiates 300 ng/mL CARDIAC [id number] 19:38:00* Test Item Value Reference Range Interpretation Comme nts TROPONIN I (test code = A84) 8.00 pg/mL 0.00-45.20 [id number] 19:31:00* Test Item Value Reference Range Interpretation Comme nts COLOR (test code = COLU) YELLOW YELLOW [...] LEUK) NEGATIVE NEGATIVE CBC (INCLUDES AUTOMATED DIFFERENTIAL)2022-12-20 19:30:00* Test Item Value Reference Range Interpretation Comme nts WBC (test code = WBC) 6.6 10\S\3/uL [...] RBC MORPH (test code = RBCMOR) NORMAL Notes Date/Time Note Provider Source 2023-11-01 11:21:47 No POA on file for this pt. We are unable to disclose in pt information without pt consent. We would need POA on file before disclosing this to this caller. E Guerra LVN [facility] 2023-11-01 10:10:38 Cecil Lopez is a 83 year old male Yobany Rodriguez is calling and states she is POA and is asking for a letter from [facility] stating that patient is chronically ill with Alzheimers. Please advise if this is something the clinic is able to do. [phone] [facility]
[2024-07-29] MEDS ORDERED: NA CHLORIDE 0.9% 1,000 ML ONE (21:35)
[2024-07-29 21:53] LABS: PT Prothrombin Time 10.9 SECONDS (9.4-12.5); Protime INR 0.97
--- NOTE | 2024-07-29 21:53 | RAD REPORT ---
EXAM: CT brain without contrast HISTORY: Dizziness COMPARISON: 2022 TECHNIQUE: Multiple contiguous axial images were obtained and a CT of the brain without contrast.. Sagittal and coronal reconstruction performed. Automated exposure control, adjustment of the mA and/or kV according to patient size, and/or iterative reconstruction. 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 No fluid within the visualized sinuses or mastoids noted. IMPRESSION: No acute intracranial abnormality noted. If the patient's symptoms persist MRI of the brain would be recommended.
[2024-07-29 21:54] LABS: Absolute Eosinophils 0.2 K/uL (0-0.5); Absolute Lymphocytes (CBC) 1.9 K/uL (0.7-4.9); Absolute Monocytes 0.6 K/uL (0.1-1.3); Absolute Neutrophil 4.2 K/uL (1.8-8.0); Basophils % 0.6 % (0-1.3); Eosinophils % 2.5 % (0-4.4); Hematocrit 41.6 % (39.6-49.0); Hemoglobin 13.9 g/dL (13.6-17.9); Lymphocytes % 27.4 % (15.3-44.8); MCH 32.9 pg (27.0-35.0); MCHC 33.5 g/dL (32.0-36.0); MCV 98.3 fL (80-100); MPV 7.8 fL (7.6-11.3); Neutrophils % 61.5 % (41.7-73.7); Platelets 263 thou/uL (152-406); RBC Red Blood Cell Count 4.23 M/uL (4.33-5.43); Red Cell Distribution Width 13.7 % (12.1-15.2)
[2024-07-29 22:07] LABS: C-Reactive Protein 3.17 mg/L (<3.00)
--- NOTE | 2024-07-29 22:15 | RAD REPORT ---
Procedure: Chest Single View HISTORY: Chest pain COMPARISON: 2021 FINDINGS: The lungs appear clear of acute infiltrate. No significant pleural effusion noted. The heart is mildly enlarged. Post surgical changes involving the chest. IMPRESSION: No acute abnormality is displayed.
--- NOTE | 2024-07-30 01:36 | EDPHYS ---
Physician Documentation [facility] Name: Cecil Butterfield Age: 84 yrs Sex: Male : 1940 Arrival Date: 07/29/2024 Time: 20:51 Bed 7 Private MD: ED Physician Dieter Lazo HPI: 07/29 21:16 This 84 yrs old Male presents to ER via Unassigned with complaints of chest sp4 pain . 07/30 02:18 Patient presents with assisted living facility with reported complaint of irregular sp4 heart rate . Historical: - Allergies: 07/29 21:49 No Known Allergies; bm8 - Home Meds: 21:49 Antacid Extra-Strength 300 mg (750 mg) oral tablet,chewable [Active]; Anti-Diarrheal bm8 (daniela)-Anti-Gas 2-125 mg oral tablet [Active]; Motrin Oral 200 mg [Active]; clopidogrel 75 mg oral tablet 1 tab [Active]; rivastigmine 9.5 mg/24 hour transdermal patch, transdermal 24 hours [Active]; loperamide 2 mg Oral capsule [Active]; quetiapine 25 mg oral tablet [Active]; alprazolam 0.25 mg Oral tablet [Active]; melatonin 5 mg Oral capsule [Active]; metoprolol tartrate 25 mg Oral tablet [Active]; tamsulosin 0.4 mg oral capsule [Active]; - PMHx: 21:49 Alzheimer's disease; Anemia; blood transfusion from bleeding ucler; CAD; GI Bleed; CVA; bm8 Hypertension; Ulcers; volvulus; - PSHx: 21:49 open heart surgery; bm8 - Immunization history:: Adult Immunizations up to date. - Infectious Disease History:: Denies. - Social history:: Smoking status: Patient denies any tobacco usage or history of. Patient/guardian denies using alcohol, street drugs. - Family history:: not pertinent. ROS: 07/30 02:18 Constitutional: Negative for fever, chills, and weight loss, positive for sp4 palpitations. All other systems are negative, Exam: 02:18 Constitutional: This is a well developed, well nourished patient who is awake, alert, sp4 and in no acute distress. Demented appearing male. Head/Face: Normocephalic, atraumatic. Eyes: Pupils equal round and reactive to light, extra-ocular motions intact. Lids and lashes normal. Conjunctiva and sclera are not injected. Cornea within normal limits. Periorbital areas with no swelling, redness, or edema. ENT: Nares patent. No nasal discharge, no septal abnormalities noted. Tympanic membranes are normal and external auditory canals are clear. Oropharynx with no redness, swelling, or masses, exudates, or evidence of obstruction, uvula midline. Mucous membranes moist. Neck: Trachea midline, no thyromegaly or masses palpated, and no cervical lymphadenopathy. Supple, full range of motion without nuchal rigidity, or vertebral point tenderness. Chest/axilla: Normal chest wall appearance and motion. Nontender with no deformity. No lesions are appreciated. Cardiovascular: Regular rate and rhythm with a normal S1 and S2. No gallops, murmurs, or rubs. Normal PMI, no JVD. No pulse deficits. Respiratory: Lungs have equal breath sounds bilaterally, clear to auscultation and percussion. No rales, rhonchi or wheezes noted. No increased work of breathing, no retractions or nasal flaring. Abdomen/GI: Soft, with normal bowel sounds. No distension or tympany. No guarding or rebound. No evidence of tenderness throughout. Back: No spinal tenderness. No costovertebral tenderness. Skin: Warm, dry with normal turgor. Normal color with no rashes, no lesions, and no evidence of cellulitis. MS/ Extremity: Pulses equal, no cyanosis. Neurovascular intact. Full, normal range of motion. Neuro: Awake and alert, GCS 15, oriented to person, place, time, and situation. Cranial nerves II-XII grossly intact. Motor strength 5/5 in all extremities. Sensory grossly intact. Psych: Awake, alert, with orientation to person, place and time. Behavior, mood, and affect are within normal limits 02:19 ECG was reviewed by the Attending Physician. NSR, at 76 sp4 Vital Signs: 07/29 21:46 BP 97 / 67; Pulse 78; Resp 18; Temp 97.7; Pulse Ox 99% on R/A; Weight 63.5 kg; Height 5 bm8 ft. 8 in. ; Pain 0/10; 22:44 BP 105 / 70; Pulse 63; Resp 18; Temp 97.7; Pulse Ox 96% ; Pain 01/10; bm8 07/30 01:00 BP 118 / 77; Pulse 66; Resp 17; Temp 98.5; Pulse Ox 97% ; Pain 0/10; bm8 03:07 bm8 07/29 21:46 Body Mass Index 21.29 (63.50 kg, 172.72 cm) bm8 07/29 21:46 Pain Scale: Adult bm8 22:44 Pain Scale: Adult bm8 07/30 01:00 Pain Scale: Adult bm8 03:07 pt has declined vital sign monitoring since he was told he was being discharged bm8 Danis Coma Score: 07/29 21:57 Eye Response: spontaneous(4). Motor Response: obeys commands(6). Verbal Response: bm8 oriented(5). Total: 15. 22:44 Eye Response: spontaneous(4). Motor Response: obeys commands(6). Verbal Response: bm8 oriented(5). Total: 15. 07/30 01:11 Eye Response: spontaneous(4). Motor Response: obeys commands(6). Verbal Response: bm8 oriented(5). Total: 15. 02:18 Eye Response: spontaneous(4). Motor Response: obeys commands(6). Verbal Response: sp4 oriented(5). Total: 15. MDM: 07/29 21:15 Medical Screening Exam initiated sp4 07/30 01:32 ED course: Procedure: Chest Single View HISTORY: Chest pain COMPARISON: 2021 FINDINGS: sp4 The lungs appear clear of acute infiltrate. No significant pleural effusion noted. The heart is mildly enlarged. Post surgical changes involving the chest. IMPRESSION: No acute abnormality is displayed. . ED course: HISTORY: Chest pain COMPARISON: 2021 FINDINGS: The lungs appear clear of acute infiltrate. No significant pleural effusion noted. The heart is mildly enlarged. Post surgical changes involving the chest. IMPRESSION: No acute abnormality is displayed. . ED course: TECHNIQUE: Multiple contiguous axial images were obtained and a CT of the brain without contrast.. Sagittal and coronal reconstruction performed. Automated exposure control, adjustment of the mA and/or kV according to patient size, and/or iterative reconstruction. 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 No fluid within the visualized sinuses or mastoids noted. IMPRESSION: No acute intracranial abnormality noted. If the patient's symptoms persist MRI of the brain would be recommended.. 02:20 Differential diagnosis: acute pericarditis, anxiety, chest wall pain, esophagitis, sp4 gastritis. HEART Score: History: Slightly Suspicious (0), ECG: Normal (0), Age: > or = 65 years (2), Risk Factors: 1 or 2 risk factors (1), Troponin: < or = 1 x Normal Limit (0), Total Score = 3. Data reviewed: vital signs, nurses notes, lab test result(s), EKG, radiologic studies, CT scan, plain films. ED course: work up is unremarkable, stable for discharge into Assisted living facility . 07/29 21:14 Order name: CBC with Diff; Complete Time: 01:18 sp4 07/29 21:14 Order name: PT-INR; Complete Time: :18 sp4 07/29 21:16 Order name: CRP; Complete Time: 01:18 sp4 07/29 21:16 Order name: Lipase; Complete Time: 01:18 sp4 07/29 21:14 Order name: XRAY Chest (1 view); Complete Time: 01:18 sp4 07/29 21:16 Order name: CT Head Brain wo Cont; Complete Time: 01:18 sp4 07/29 21:14 Order name: Cardiac monitoring; Complete Time: 21:59 sp4 07/29 21:14 Order name: EKG - Nurse/Tech; Complete Time: 21:59 sp4 07/29 21:14 Order name: IV Saline Lock; Complete Time: 21:59 sp4 07/29 21:14 Order name: Labs collected and sent; Complete Time: 21:59 sp4 07/29 21:14 Order name: O2 Per Protocol; Complete Time: :59 sp4 07/29 21:14 Order name: O2 Sat Monitoring; Complete Time: 21:59 sp4 EC/04 21:32 Rate is 76 beats/min. Rhythm is regular, Normal Sinus Rhythm. QRS [place] is Normal. PA sp4 interval is normal. QRS interval is normal. QT interval is normal. No Q waves. T waves are Normal. No ST changes noted. Interpreted by me. Reviewed by me. Administered Medications: 07/30 01:12 Discontinued: ns 0.9% 1000 ml IV at 75 ml/hr continuous bm8 07/29 21:30 Drug: NS 0.9% IV 1000 ml IV at 75 ml/hr continuous Route: IV; Rate: 75 ml/hr; Site: 8 left forearm; 07/30 01:12 Follow up: Response: No adverse reaction; IV Status: Completed infusion; Order to [facility] discontinue infusion; IV Intake: 150ml Disposition Summary: 07/30/24 01:35 Discharge Ordered Problem: new sp4 Symptoms: have improved sp4 Condition: Stable sp4 Diagnosis - Palpitations sp4 - Ventricular premature depolarization sp4 - Occasional Premature Ventricular contractions sp4 Followup: sp4 - With: Private Physician - When: 7 - 10 days - Reason: Followup: sp4 - With: Bertin Norton MD - When: 10 - 14 days - Reason: Recheck today's complaints Discharge Instructions: - Discharge Summary Sheet sp4 - Palpitations sp4 Forms: - Patient Portal Instructions sp4 Signatures: Dispatcher [employer] Dieter Zuñiga MD MD sp4 Artie Oneal RN RN bm8
--- NOTE | 2024-07-30 01:36 | ER ---
Nurse's Notes [facility] Name: Cecil Butterfield Age: 84 yrs Sex: Male : 1940 Arrival Date: 07/29/2024 Time: 20:51 Bed 7 Private MD: Diagnosis: Palpitations;Ventricular premature depolarization;Occasional Premature Ventricular contractions Presentation: 07/29 21:46 Chief complaint: Patient states: My throat has been hurting for about 2 months. EMS bm8 states: we were called out for abd pain, when we arrived pt denied abd pain. Coronavirus screen: At this time, the client does not indicate any symptoms associated with coronavirus-19. Ebola Screen: Patient negative for fever greater than or equal to 101.5 degrees Fahrenheit, and additional compatible Ebola Virus Disease symptoms Patient denies exposure to infectious person. Patient denies travel to an Ebola-affected area in the 21 days before illness onset. No symptoms or risks identified at this time. Initial Sepsis Screen: Does the patient meet any 2 criteria? No. Patient's initial sepsis screen is negative. Does the patient have a suspected source of infection? No. Patient's initial sepsis screen is negative. Risk Assessment: Do you want to hurt yourself or someone else? Patient reports no desire to harm self or others. Onset of symptoms is unknown. 21:46 Method Of Arrival: EMS: [facility] bm8 21:46 Acuity: JAMSHID 3 bm8 Triage Assessment: 21:49 General: Appears in no apparent distress. comfortable, Behavior is calm, cooperative, bm8 appropriate for age. Pain: Complains of pain in throat Pain currently is 1 out of 10 on a pain scale. Quality of pain is described as aching. EENT: Throat is clear is pink with gag reflex present. Neuro: No deficits noted. Level of Consciousness is awake, alert, obeys commands, Oriented to person, place, time, situation, Appropriate for age. Cardiovascular: Denies chest pain, Capillary refill < 3 seconds in bilateral fingers toes Patient's skin is warm and dry. Rhythm is sinus rhythm. Respiratory: No deficits noted. Airway is patent Respiratory effort is even, unlabored, Respiratory pattern is regular, symmetrical. GI: Abdomen is flat, non-distended, Bowel sounds present X 4 quads. Abd is soft and non tender X 4 quads. Patient currently denies abdominal pain. : No deficits noted. No signs and/or symptoms were reported regarding the genitourinary system. Derm: No deficits noted. No signs and/or symptoms reported regarding the dermatologic system. Musculoskeletal: No deficits noted. No signs and/or symptoms reported regarding the musculoskeletal system. Historical: - Allergies: 21:49 No Known Allergies; bm8 - Home Meds: 21:49 Antacid Extra-Strength 300 mg (750 mg) oral tablet,chewable [Active]; Anti-Diarrheal bm8 (daniela)-Anti-Gas 2-125 mg oral tablet [Active]; Motrin Oral 200 mg [Active]; clopidogrel 75 mg oral tablet 1 tab [Active]; rivastigmine 9.5 mg/24 hour transdermal patch, transdermal 24 hours [Active]; loperamide 2 mg Oral capsule [Active]; quetiapine 25 mg oral tablet [Active]; alprazolam 0.25 mg Oral tablet [Active]; melatonin 5 mg Oral capsule [Active]; metoprolol tartrate 25 mg Oral tablet [Active]; tamsulosin 0.4 mg oral capsule [Active]; - PMHx: 21:49 Alzheimer's disease; Anemia; blood transfusion from bleeding ucler; CAD; GI Bleed; CVA; bm8 Hypertension; Ulcers; volvulus; - PSHx: 21:49 open heart surgery; bm8 - Immunization history:: Adult Immunizations up to date. - Infectious Disease History:: Denies. - Social history:: Smoking status: Patient denies any tobacco usage or history of. Patient/guardian denies using alcohol, street drugs. - Family history:: not pertinent. Screenin:57 [facility] ED Fall Risk Assessment (Adult) History of falling in the last 3 months, bm8 including since admission No falls in past 3 months (0 pts) Confusion or Disorientation No (0 pts) Intoxicated or Sedated No (0 pts) Impaired Gait Yes (1 pt) Mobility Assist Device Used No (0 pt) Altered Elimination No (0 pt). [facility] ED Fall Risk Assessment (Adult) Score/Fall Risk Level 0 - 2 = Low Risk Oriented to surroundings, Maintained a safe environment, Educated pt \T\ family on fall prevention, incl call for assistance when getting out of bed, Assessed \T\ reinforced patient's understanding of fall precautions, Hourly rounding (assess needs \T\ fall precautionary measures) done, Used ambulatory aids as needed (educated on \T\ assisted with), Used gait belt as appropriate. Abuse screen: Denies threats or abuse. Nutritional screening: No deficits noted. Tuberculosis screening: No symptoms or risk factors identified. Assessment: 21:57 Reassessment: see triage note. Respiratory: No deficits noted. Airway is patent bm8 Respiratory effort is even, unlabored, Respiratory pattern is regular, symmetrical, Breath sounds are clear bilaterally. 22:44 Reassessment: Patient appears in no apparent distress at this time. Patient and/or bm8 family updated on plan of care and expected duration. Pain level reassessed. Patient is alert, oriented x 3, equal unlabored respirations, skin warm/dry/pink. Patient denies pain at this time. Patient states feeling better. Patient states symptoms have improved. Reassessment: pt is resting with eyes closed breathing is even and unlabored with symmetrical rise and fall of chest. General: Appears in no apparent distress. comfortable. Pain: Denies pain. Neuro: No deficits noted. Level of Consciousness is alert, obeys commands, Oriented to person, place, situation. Cardiovascular: No deficits noted. GI: No deficits noted. No signs and/or symptoms were reported involving the gastrointestinal system. : No deficits noted. No signs and/or symptoms were reported regarding the genitourinary system. EENT: No deficits noted. No signs and/or symptoms were reported regarding the EENT system. Derm: No deficits noted. No signs and/or symptoms reported regarding the dermatologic system. Musculoskeletal: No deficits noted. No signs and/or symptoms reported regarding the musculoskeletal system. 07/30 01:11 Reassessment: Patient appears in no apparent distress at this time. Patient and/or bm8 family updated on plan of care and expected duration. Pain level reassessed. Patient is alert, oriented x 3, equal unlabored respirations, skin warm/dry/pink. Patient denies pain at this time. 01:57 Reassessment: pt is awaiting transportation. bm8 03:07 Reassessment: several unsuccessful attempts made to contact family to arrange bm8 transportation back to [facility]. [facility] states that it is not there responsibility to arrange transportation for PTs that are in their facility. it is the Family's responsibility. charge nurse made aware of transportation issues. 04:27 Reassessment: transportation arrangement made and pt is leaving at this time. bm8 Vital Signs: 07/29 21:46 BP 97 / 67; Pulse 78; Resp 18; Temp 97.7; Pulse Ox 99% on R/A; Weight 63.5 kg; Height 5 bm8 ft. 8 in. ; Pain 0/10; 22:44 BP 105 / 70; Pulse 63; Resp 18; Temp 97.7; Pulse Ox 96% ; Pain 01/10; bm8 07/30 01:00 BP 118 / 77; Pulse 66; Resp 17; Temp 98.5; Pulse Ox 97% ; Pain 0/10; bm8 03:07 bm8 07/29 21:46 Body Mass Index 21.29 (63.50 kg, 172.72 cm) bm8 07/29 21:46 Pain Scale: Adult bm8 22:44 Pain Scale: Adult bm8 07/30 01:00 Pain Scale: Adult bm8 03:07 pt has declined vital sign monitoring since he was told he was being discharged bm8 Danis Coma Score: 07/29 21:57 Eye Response: spontaneous(4). Motor Response: obeys commands(6). Verbal Response: bm8 oriented(5). Total: 15. 22:44 Eye Response: spontaneous(4). Motor Response: obeys commands(6). Verbal Response: bm8 oriented(5). Total: 15. 07/30 01:11 Eye Response: spontaneous(4). Motor Response: obeys commands(6). Verbal Response: bm8 oriented(5). Total: 15. 02:18 Eye Response: spontaneous(4). Motor Response: obeys commands(6). Verbal Response: sp4 oriented(5). Total: 15. ED Course: 07/29 21:13 Patient arrived in ED. vc1 21:14 Dieter Lazo MD is Attending Physician. sp4 21:46 Artie Oneal, ELLE is Primary Nurse. bm8 21:49 CT Head Brain wo Cont In Process Unspecified. EDMS 21:49 Triage completed. bm8 21:49 Arm band placed on right wrist. bm8 21:57 Patient has correct armband on for positive identification. Placed in gown. Bed in low bm8 position. Call light in reach. Side rails up X2. Client placed on continuous cardiac and pulse oximetry monitoring. NIBP monitoring applied. campus monitor on. Pulse ox on. NIBP on. Door closed. Noise minimized. Visitors limited. Warm blanket given. Pillow given. Verbal reassurance given. Head of bed elevated. 21:57 No provider procedures requiring assistance completed. Initial lab(s) drawn, by il, shanelle sent to lab. EKG done, by ED staff, reviewed by Dieter Lazo MD. Inserted saline lock: 20 gauge in left forearm, using aseptic technique. Blood collected. Flushed with 10 mL NS. Patient maintains SpO2 saturation greater than 95% on room air. 22:09 XRAY Chest (1 view) In Process Unspecified. EDMS 07/30 01:11 IV discontinued, intact, bleeding controlled, No redness/swelling at site. Pressure bm8 dressing applied, pt pulled his IV. 01:36 Bertin Norton MD is Referral Physician. sp4 01:58 Provided Education on: post er care. bm8 Administered Medications: 01:12 Discontinued: ns 0.9% 1000 ml IV at 75 ml/hr continuous bm8 07/29 21:30 Drug: NS 0.9% IV 1000 ml IV at 75 ml/hr continuous Route: IV; Rate: 75 ml/hr; Site: bm8 left forearm; 07/30 01:12 Follow up: Response: No adverse reaction; IV Status: Completed infusion; Order to bm8 discontinue infusion; IV Intake: 150ml Medication: 07/29 21:57 VIS not applicable for this client. bm8 Intake: 07/30 01:12 IV: 150ml; Total: 150ml. bm8 Outcome: 01:35 Discharge ordered by . sp4 01:58 Discharged to home ambulatory, bm8 01:58 Condition: stable 01:58 Discharge instructions given to usp, Instructed on discharge instructions, follow up and referral plans. no drinking with medication, no driving heavy equipment, safety practices, Demonstrated understanding of instructions, follow-up care, medications, 04:28 Patient left the ED. bm8 Signatures: Dispatcher [employer] EDMS Tila Wheeler RN RN vc1 Dieter Lazo MD MD sp4 Artie Oneal RN RN bm8
[2024-07-30 04:34] VITALS: BP 118/77; TEMP 98.5; O2SAT 97
--- NOTE | 2024-07-30 12:17 | EKG ---
Test Date: 2024-07-29 Test Time: 21:32:35 [employer]: MULU MEASUREMENT RESULTS: Intervals: Rate: 76 LA: 174 QRSD: 90 QT: 374 QTc: 420 [place]: P: 67 LA: 174 QRS: 44 T: 28 INTERPRETIVE STATEMENTS: Normal sinus rhythm Normal ECG Compared to ECG 07/18/2022 15:36:09 No significant changes Electronically Signed On 07-30-24 12:15:51 [employer] by Kuldip Sullivan
== END 2024-07-30 04:28 | disposition home or self-care (01) ==
LOC: ER 20:51
DX: I49.3 Ventricular premature depolarization (principal); I10 Essential (primary) hypertension; Z86.73 Personal history of transient ischemic attack (TIA), and cerebral infarction without residual deficits; G30.9 Alzheimer's disease, unspecified; F02.80 Dementia in other diseases classified elsewhere, unspecified severity, without behavioral disturbance, psychotic disturbance, mood disturbance, and anxiety
CPT/HCPCS: 93005; 85025; 36415; 85610; 83690; 86140; 70450; 71045; J7030